=== PATIENT | female | born 1945 | race Caucasian/White ===

== ENCOUNTER 2019-02-12 04:00 | Inpatient (IN) | payer MEDICARE, OTHER ==
[2019-02-12] VITALS (9 sets, daily range): BP systolic 122–152; BP diastolic 59–75; PULSE 80–86; RESP 16–22; Ht 157.5 cm; Wt 91.6 kg
[~2019-02-12] VITALS: Ht 157.5 cm; Wt 91.6 kg
[~2019-02-12 04:00] MED LIST: AMPI3VIA IVPB; ARGI1POW MC; ASPI-903 PO; ATOR-2 ORAL; CADE40GE TP; CARV25TA79 ORAL; CLOP75TA28 ORAL; DULA1.5P SQ; INSU100I33 SC; NICO-546 TRANSDERM; NOVO3I SC; SACU1TAB7 ORAL; SPIR25TA PO; TRAM50TA2 ORAL
[2019-02-12] MEDS ORDERED: PROPOFOL 100 ML IV STA (04:06)
[2019-02-12] MEDS ORDERED: PROPOFOL 100 ML ONE ×2 (04:10→06:22)
[2019-02-12] MEDS ORDERED: ETOMIDATE 20 MG INJ ONE (04:20)
[2019-02-12] MEDS ORDERED: SUCCINYLCHOLINE CHLORIDE 100 MG/5 ML SYG IV ONE ×3 (04:20→07:00)
[2019-02-12] MEDS ORDERED: ETOMIDATE 20 MG INJ IV ONE (04:30)
[2019-02-12] MEDS ORDERED: FUROSEMIDE 40 MG INJ IV ONE (04:30)
--- NOTE | 2019-02-12 05:35 | ERD ---
ER Documentation Chief Complaint Chief Complaint SOB HPI This is a very pleasant 73-year-old female brought in by rescue with shortness of breath. According to respiratory short of breath and diaphoretic at the scene and they started her on CPAP. Upon arrival patient is essentially obtunded and is unable to provide any relevant history at this time. Obviously history is very limited. ROS All systems reviewed and are negative except as per history of present illness. Allergies Allergies: Coded Allergies: No Known Allergy (Unverified , 02/12/19) PMhx/Soc History of Surgery: Yes (LEFT LEG AMPUTATION 2013, STENTS 2017) Anesthesia Reaction: No Hx Neurological Disorder: No Hx Respiratory Disorders: Yes (CHF ) Hx Cardiac Disorders: Yes (HTN ) Hx Psychiatric Problems: No Hx Miscellaneous Medical Probl: Yes (STAPH INFECTION ) Hx Alcohol Use: No Hx Substance Use: No Hx Tobacco Use: No Smoking Status: Never smoker Physical Exam Vitals Vital Signs Date Temp Pulse Resp B/P (MAP) Pulse Ox O2 O2 Flow FiO2 Time Delivery Rate 02/12/19 40 05:30 02/12/19 98 16 113/61 100 Room Air 05:04 (78) 02/12/19 60 05:01 02/12/19 112 16 98 100 04:22 02/12/19 97.5 127 21 197/116 100 04:14 (143) Physical Exam Const: No acute distress Head: Atraumatic Eyes: Normal Conjunctiva ENT: Normal External Ears, Nose and Mouth. Neck: Full range of motion. No meningismus. Resp: Clear to auscultation bilaterally Cardio: Regular rate and rhythm, no murmurs Abd: Soft, non tender, non distended. Normal bowel sounds Skin: No petechiae or rashes Back: No midline or flank tenderness Ext: No cyanosis, or edema Neur: Awake and alert Psych: Normal Mood and Affect Result Diagram: 02/12/19 0417 02/12/19 0417 Results 24 hrs Laboratory Tests Test 02/12/19 04:06 02/12/19 04:17 Blood Gas Specimen Source Blood arterial Arterial Blood Date Drawn 02/12/2019 5:15:40 AM Arterial Blood pH (Temp corrected) 7.282 Arterial Blood pCO2 (Temp correct) 49.1 mmhg Arterial Blood pO2 (Temp corrected) 264.2 mmHG Arterial Blood HCO3 22.7 mmol/L Arterial Blood Base Excess -4.4 mmol/L Arterial Blood Oxygen Saturation 98.9 mmHG Dawson Test ACCEPTAB Arterial Blood Gas Puncture Site Left Radial Arterial Blood Carboxyhemoglobin 0.4 % Arterial Blood Methemoglobin 0.1 % Blood Gas A-a O2 Differential 399.7 mmHg Oxyhemoglobin Percent 98.4 % Blood Gas Temperature 37.0 C Blood Gas Respiration Rate 16.0 Blood Gas Actual Respiration Rate 16 Blood Gas Modality VENT - AC FiO2 100.0 % Blood Gas Tidal Volume 500.0 mL Blood Gas Inspiratory Pressure 31.0 Blood Gas Critical Value Read Back DR. COPPOLA Blood Gas Notified Whom Blood Gas Notified Time 02/12/2019 5:27:38 AM White Blood Count 9.2 10^3/ul Red Blood Count 5.28 10^6/ul Hemoglobin 15.5 g/dl Hematocrit 48.9 % Mean Corpuscular Volume 92.6 fl Mean Corpuscular Hemoglobin 29.4 pg Mean Corpuscular Hemoglobin Concent 31.7 g/dl Red Cell Distribution Width 13.2 % Platelet Count 415 10^3/UL Mean Platelet Volume 10.6 fl Immature Granulocytes % 0.500 % Neutrophils % 63.3 % Lymphocytes % 25.8 % Monocytes % 5.7 % Eosinophils % 3.6 % Basophils % 1.1 % Nucleated Red Blood Cells % 0.0 /100WBC Immature Granulocytes # 0.050 10^3/ul Neutrophils # 5.8 10^3/ul Lymphocytes # 2.4 10^3/ul Monocytes # 0.5 10^3/ul Eosinophils # 0.3 10^3/ul Basophils # 0.1 10^3/ul Nucleated Red Blood Cells # 0.0 10^3/ul Prothrombin Time 13.1 Sec Prothrombin Time Ratio 1.0 INR International Normalized Ratio 0.98 Activated Partial Thromboplast Time 23.7 Sec Sodium Level 143 mmol/L Potassium Level 5.2 mmol/L Chloride Level 108 mmol/L Carbon Dioxide Level 24 mmol/L Anion Gap 11 Blood Urea Nitrogen 21 mg/dl Creatinine 0.90 mg/dl Est Glomerular Filtrat Rate mL/min mL/min Glucose Level 380 mg/dl Calcium Level 8.7 mg/dl Total Bilirubin 0.2 mg/dl Direct Bilirubin 0.00 mg/dl Indirect Bilirubin 0.2 mg/dl Aspartate Amino Transf (AST/SGOT) 218 IU/L Alanine Aminotransferase (ALT/SGPT) 195 IU/L Alkaline Phosphatase 168 IU/L Troponin I < 0.012 ng/ml B-Type Natriuretic Peptide 1910 PG/ML Total Protein 6.9 g/dl Albumin 3.5 g/dl Globulin 3.40 g/dl Albumin/Globulin Ratio 1.02 Triglycerides Level 272 mg/dl Cholesterol Level 185 mg/dl LDL Cholesterol, Calculated 95 mg/dl HDL Cholesterol 36 mg/dl Cholesterol/HDL Ratio 5.1 RATIO Lipase 118 U/L Current Medications Medications Dose Sig/Madelyn Start Time Status Last (Trade) Ordered Route PRN Stop Time Admin Dose Reason Admin Etomidate 20 mg ONCE ONCE 02/12/19 DC 02/12/19 (Amidate) IV 04:30 02/12/19 04:37 04:31 100 mg ONCE ONCE 02/12/19 DC 02/12/19 Succinylcholi IV 04:30 02/12/19 04:37 ne Chloride 04:31 (Anectine Syringe) Propofol 100 ml @ 3 ONCE STAT 02/12/19 02/12/19 mls/hr IV 04:06 02/13/19 05:29 13:25 Furosemide 80 mg ONCE ONCE 02/12/19 DC (Lasix) IV 04:30 02/12/19 04:31 Procedures/MDM EKG: Rate/Rhythm: [Normal Sinus Rhythm] QRS, ST, T-waves: ST segment depressions in V5 and V6 Impression: Abnormal EKG Chest X-ray 1V Interpreted by me: Soft Tissue: No acute abnormalities Bones: No acute abnormalities Mediastinum/Cardiac Silhouette/Lungs: Increased interstitial fluid markings. Impression: CHF Emergency department course: Patient was immediately intubated given his severe respiratory distress and her mental status declining. At this point patient will be admitted to intensive care unit to Dr. kaminski as primary does not come to this hospital. Endotracheal Intubation by me: Pre assessment performed. See preceding note for details. Pre-oxygenation performed with 100% oxygen RSI: Performed w/o complication or hypoxic events. Medications as ordered. Blade: [Mac 4] ET Tube: 7.5 cm Depth: 23 cm at the lip Intubation confirmed by colorimetric CO2, equal breath sounds, quiet over the stomach. Chest X-ray 1V Interpreted by me: 2 cm above the anselmo ET tube. Normal soft tissue, No pneumothorax. Patient's heart failure symptoms is concerning for acute decompensation and will require inpatient workup and monitoring. Further w/u for ischemia, arrhythmia, PE or dissection will be deferred to the inpatient team. Accepting Care Team: Current data and ongoing care discussed. Time: 4:30 AM Primary Provider: Hospitalist Consulting: [ZAC] Outstanding Data: none Critical Care: Time: 45 minutes, independent of any separately billable procedural time Treatments/Evaluations: Close monitoring and treatment of unstable vital signs, cardiorespiratory, and neurologic status, while maintaining tight balance of fluid, respiratory, and cardiac interventions. Departure Diagnosis: Primary Impression: Shortness of breath Condition: Critical WYATT COPPOLA Feb 12, 2019 05:35
--- NOTE | 2019-02-12 07:18 | HP ---
Date/Time of Note Date/Time of Note DATE: 02/12/19 TIME: 07:11 Assessment/Plan VTE Prophylaxis SCD applied (from Nsg): Yes Pharmacological prophylaxis: NA/contraindicated Pharm contraindication: other (Allergy to heparin) Lines/Catheters IV Catheter Type (from Nrsg): Saline Lock Assessment/Plan Assessment/Plan 1. Hypoxic respiratory failure: Secondary to CHF exacerbation, status post intubation -Continue vent support -Repeat ABG -2D echo -Consider chest CT -will diurese -Pulmonary and cardiology consult 2. Acute on chronic CHF -will diurese -2D echo 3. Diabetes with hyperglycemia -Check A1c -Insulin while in-house 4. Hypertension: Adjust BP meds as needed 5. Left leg amputation at the hip: No acute issue. Supportive care Result Diagram: 02/12/19 0417 02/12/19 0417 Results 24hrs Laboratory Tests Test 02/12/19 04:06 02/12/19 04:17 Blood Gas Specimen Source Blood arterial Arterial Blood Date Drawn 02/12/2019 5:15:40 AM Arterial Blood pH (Temp corrected) 7.282 *L Arterial Blood pCO2 (Temp correct) 49.1 H Arterial Blood pO2 (Temp corrected) 264.2 H Arterial Blood HCO3 22.7 Arterial Blood Base Excess -4.4 L Arterial Blood Oxygen Saturation 98.9 Dawson Test ACCEPTAB Arterial Blood Gas Puncture Site Left Radial Arterial Blood Carboxyhemoglobin 0.4 Arterial Blood Methemoglobin 0.1 Blood Gas A-a O2 Differential 399.7 H Oxyhemoglobin Percent 98.4 Blood Gas Temperature 37.0 Blood Gas Respiration Rate 16.0 Blood Gas Actual Respiration Rate 16 Blood Gas Modality VENT - AC FiO2 100.0 Blood Gas Tidal Volume 500.0 Blood Gas Inspiratory Pressure 31.0 Blood Gas Critical Value Read Back DR. COPPOLA Blood Gas Notified Whom MR Blood Gas Notified Time 02/12/2019 5:27:38 AM White Blood Count 9.2 Red Blood Count 5.28 Hemoglobin 15.5 Hematocrit 48.9 H Mean Corpuscular Volume 92.6 Mean Corpuscular Hemoglobin 29.4 Mean Corpuscular Hemoglobin Concent 31.7 L Red Cell Distribution Width 13.2 Platelet Count 415 Mean Platelet Volume 10.6 H Immature Granulocytes % 0.500 H Neutrophils % 63.3 Lymphocytes % 25.8 Monocytes % 5.7 Eosinophils % 3.6 Basophils % 1.1 Nucleated Red Blood Cells % 0.0 Immature Granulocytes # 0.050 H Neutrophils # 5.8 Lymphocytes # 2.4 Monocytes # 0.5 Eosinophils # 0.3 Basophils # 0.1 Nucleated Red Blood Cells # 0.0 Prothrombin Time 13.1 Prothrombin Time Ratio 1.0 INR International Normalized Ratio 0.98 Activated Partial Thromboplast Time 23.7 Sodium Level 143 Potassium Level 5.2 H Chloride Level 108 Carbon Dioxide Level 24 Anion Gap 11 Blood Urea Nitrogen 21 H Creatinine 0.90 Est Glomerular Filtrat Rate mL/min Glucose Level 380 H Calcium Level 8.7 Total Bilirubin 0.2 Direct Bilirubin 0.00 Indirect Bilirubin 0.2 Aspartate Amino Transf (AST/SGOT) 218 H Alanine Aminotransferase (ALT/SGPT) 195 H Alkaline Phosphatase 168 H Troponin I < 0.012 B-Type Natriuretic Peptide 1910 H Total Protein 6.9 Albumin 3.5 Globulin 3.40 H Albumin/Globulin Ratio 1.02 Triglycerides Level 272 H Cholesterol Level 185 LDL Cholesterol, Calculated 95 HDL Cholesterol 36 Cholesterol/HDL Ratio 5.1 Lipase 118 HPI/ROS Admit Date/Time Admit Date/Time Hx of Present Illness Patient is a 73-year-old obese female with a history of hypertension, CHF, left leg amputation at the hip who was brought to the ER for a shortness of breath. Patient is currently intubated and as such information is gathered from chart review and from the ER physician. When presented to ER, ABG 100% FiO2 shows a pH of 7.28, PCO2 49, PO2 264, bicarb 23. Because of the level of respiratory distress, decision was made to intubate the patient. Chest x-ray results is not uploaded, however I was at the bedside when x-ray was done and according to my read, it appears pulmonary edema PMH/Family/Social Past Medical History Medical History: other (See HPI) Medications Current Medications Propofol 100 ml @ 3 mls/hr ONCE STAT IV Last administered on 02/12/19at 05:29; Admin Dose 3 MLS/HR; Start 02/12/19 at 04:06; Stop 02/13/19 at 13:25 Coded Allergies: heparin (Verified Allergy, Unknown, 02/12/19) Uncoded Allergies: IODINE (Allergy, Unknown, 02/12/19) Past Surgical History Past Surgical Hx: other (See HPI) Family History Significant Family History: no pertinent family hx Social History Alcohol Use: none Smoking Status: Never smoker Drug Use: none Exam/Review of Systems Vital Signs Vitals Vital Signs Date Temp Pulse Resp B/P (MAP) Pulse Ox O2 O2 Flow FiO2 Time Delivery Rate 02/12/19 90 16 129/66 98 Mechanical 06:30 (87) Ventilator 02/12/19 40 05:30 02/12/19 60 05:01 02/12/19 97.5 04:14 Exam Constitutional: other (Intubated) Head: normocephalic, atraumatic Eyes: PERRL Respiratory: diminished breath sounds Cardiovascular: regular rate and rhythm Gastrointestinal: soft, other (Obese abdomen) Extremities: other (Right lower extremity with tense edema. 2 bullae noted. Left leg amputated at the hip) WYATT DAVIS MD Feb 12, 2019 07:18
[2019-02-12] MEDS ORDERED: LORAZEPAM 2 MG INJ IV PRN (07:30)
[2019-02-12] MEDS ORDERED: ALBUTEROL HFA 8 GM INHALER INH PRN (07:30)
[2019-02-12] MEDS ORDERED: IPRATROPIUM (HFA) 12.9 GM INHALER INH PRN (07:30)
[2019-02-12] MEDS ORDERED: ONDANSETRON 4 MG INJ IV PRN (07:30)
[2019-02-12] MEDS ORDERED: ARGININE HCL MC SCH (09:00)
[2019-02-12] MEDS ORDERED: GLUCOSE GEL 15 GRAM TUBE BUCCAL PRN (09:30)
[2019-02-12] MEDS ORDERED: GLUCAGON 1 MG INJ IM PRN (09:30)
[2019-02-12] MEDS ORDERED: GLUCOSE GEL 15 GRAM TUBE PO PRN ×2 (09:30)
[2019-02-12] MEDS ORDERED: DEXTROSE 50% 50 ML SYRINGE IV PRN (09:30)
--- NOTE | 2019-02-12 10:06 | QN ---
Documentation Comment Observation Note: Time: 4 hours Family Hx: Unable to obtain Evaluation: Multiple exams showed improving symptoms and no evidence of clinical decompensation. FAMILIA IRVIN MD Feb 12, 2019 10:06
[2019-02-12] MEDS: INSULIN ASPART [NOVOLOG] 3 ML PEN SC SCH ×2 (10:23→14:24)
[2019-02-12] MEDS: FAMOTIDINE 20 MG INJ IV SCH (11:01)
[2019-02-12] MEDS: ASPIRIN 81 MG TAB PO SCH (11:01)
[2019-02-12] MEDS: CLOPIDOGREL 75 MG TAB NGT SCH (11:01)
[2019-02-12] MEDS ORDERED: AMPICILLIN/SULBAC 3 GM INJ IVPB SCH (12:00)
[2019-02-12] MEDS ORDERED: AMPICILLIN/SULB 3 GM/NS (PMX) 100 ML IVPB SCH (14:00)
[2019-02-12] MEDS ORDERED: APIXABAN 5 MG TABLET PO SCH (14:30)
[2019-02-12] MEDS ORDERED: predniSONE 50 MG TAB PO ONE ×2 (14:30→20:00)
--- NOTE | 2019-02-12 14:50 | PN ---
Date/Time of Note Date/Time of Note DATE: 02/12/19 TIME: 14:36 Assessment/Plan VTE Prophylaxis SCD applied (from Nsg): Yes Pharmacological prophylaxis: apixaban Lines/Catheters IV Catheter Type (from Nrsg): Saline Lock Assessment/Plan Assessment/Plan 73 yo morbidly obese woman history of peripheral vascular disease, diabetes type II, CHF, likely COPD presents with acute respiratory failure #Acute respiratory failure - Respiratory failure appears out of proportion to mild pulmonary edema on CXR. - In setting of acute onset (within hours), lack of recent fever or productive cough to suggest pneumonia, I suspect PE until this is ruled out. - Imaging: Patient has CONTRAST ALLERGY. Will plan for CTPA with benadryl/prednisone pretreatment. I believe the lung structural information we will see on the CT is also more helpful than a VQ scan would be. - Treatment: According to granddaughter the patient had ACUTE DVT while on heparin treatment and was told she had a "heparin allergy". 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 Will avoid UFH and LMWH. Will start treatment-dose apixaban 10mg BID x7 days. - COPD exacerbation also possible. Getting prednisone as above. Will consult pulmonary as well. #Diabetes type II, insulin dependent - aspart sliding scale, glargine 20 qhs. #Peripheral vascular disease - Cont aspirin, plavix, statin - Monitor carefully for bleeding while on anticoag and dual antiplatelet. #CHF - Hold negative inotropes while critically ill #History of DVT - Will check LE duplex. GI: famotidine DVT: apixaban Result Diagram: 02/12/19 0417 02/12/19 0417 Subjective 24 Hr Interval Summary Free Text/Dictation I spoke at length to the patient's granddaughter Ann, who is a respiratory therapist who previously trained at this hospital. Apparently yesterday evening the patient suddenly developed shortness of breath and wheezing at rest. She was not doing any activities. She took her inhaled albuterol with minimal relief. Around 3:30 in the morning her shortness of breath had not improved and she was starting to tire out so her daughter brought her to the ED. She has severe peripheral artery disease, diabetes, CHF. Unknown if she has COPD. Hospitalized at [place] 2 weeks ago for R leg cellulitis and ulcer; started on IV Unasyn. PAST SURGICAL HISTORY Critical limb ischemia of the L femoral artery, status post Left leg amputation at the hip ([facility], 2014) Right leg bypass surgery 3 stents placed in her heart. SOCIAL Smokes 1 pack per day No alcohol, no drugs. Lives with daughter and granddaughter. Exam/Review of Systems Exam Vitals Vital Signs Date Temp Pulse Resp B/P (MAP) Pulse Ox O2 O2 Flow FiO2 Time Delivery Rate 02/12/19 83 16 14/64 (48) 97 Mechanical 14:26 Ventilator 02/12/19 40 05:30 02/12/19 60 05:01 02/12/19 97.5 04:14 Exam Gen: Morbidly obese woman intubated and sedated in [facility]. HEENT: Moist mucous membranes. ET tube in place. Neck: Supple, no lymphadenopathy. Card: Regular rate and rhythm, no murmurs. Pulm: Mechanical breath sounds bilaterally. Minimal crackles. Abd: Soft, nontender, nondistended. Hypoactive bowel sounds. 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 R leg with well healed bypass scar below the knee. Skin: L lower leg erythema and induration, superficial tense blisters. Left foot bandaged. Results Results 24hrs Laboratory Tests Test 02/12/19 04:06 02/12/19 04:17 02/12/19 09:52 02/12/19 10:48 Blood Gas Specimen Blood arterial Source Arterial Blood 02/12/2019 5:15:40 Date Drawn AM Arterial Blood pH 7.282 *L (Temp corrected) Arterial Blood 49.1 H pCO2 (Temp correct) Arterial Blood pO2 264.2 H (Temp corrected) Arterial Blood 22.7 HCO3 Arterial Blood -4.4 L Base Excess Arterial Blood 98.9 Oxygen Saturation Dawson Test ACCEPTAB Arterial Blood Gas Left Radial Puncture Site Arterial 0.4 Blood Carboxyhemog lobin Arterial Blood 0.1 Methemoglobin Blood Gas A-a O2 399.7 H Differential Oxyhemoglobin 98.4 Percent Blood Gas 37.0 Temperature Blood Gas 16.0 Respiration Rate Blood Gas Actual 16 Respiration Rate Blood Gas Modality VENT - AC FiO2 100.0 Blood Gas Tidal 500.0 Volume Blood Gas 31.0 Inspiratory Pressure Blood Gas Critical DR. COPPOLA Value Read Back Blood Gas Notified MR Whom Blood Gas Notified 02/12/2019 5:27:38 Time AM White Blood Count 9.2 Red Blood Count 5.28 Hemoglobin 15.5 Hematocrit 48.9 H Mean Corpuscular 92.6 Volume Mean Corpuscular 29.4 Hemoglobin Mean Corpuscular 31.7 L Hemoglobin Concent Red Cell 13.2 Distribution Width Platelet Count 415 Mean Platelet 10.6 H Volume Immature 0.500 H Granulocytes % Neutrophils % 63.3 Lymphocytes % 25.8 Monocytes % 5.7 Eosinophils % 3.6 Basophils % 1.1 Nucleated Red 0.0 Blood Cells % Immature 0.050 H Granulocytes # Neutrophils # 5.8 Lymphocytes # 2.4 Monocytes # 0.5 Eosinophils # 0.3 Basophils # 0.1 Nucleated Red 0.0 Blood Cells # Prothrombin Time 13.1 Prothrombin Time 1.0 Ratio INR International 0.98 Normalized Ratio Activated 23.[address] Time Sodium Level 143 Potassium Level 5.2 H Chloride Level 108 Carbon Dioxide 24 Level Anion Gap 11 Blood Urea 21 H Nitrogen Creatinine 0.90 Est Glomerular Filtrat Rate mL/min Glucose Level 380 H Calcium Level 8.7 Total Bilirubin 0.2 Direct Bilirubin 0.00 Indirect Bilirubin 0.2 Aspartate Amino 218 H Transf (AST/SGOT) Alanine 195 H Aminotransferase ( ALT/SGPT) Alkaline 168 H Phosphatase Troponin I < 0.012 0.069 B-Type Natriuretic 1910 H Peptide Total Protein 6.9 Albumin 3.5 Globulin 3.40 H Albumin/Globulin 1.02 Ratio Triglycerides 272 H Level Cholesterol Level 185 LDL Cholesterol, 95 Calculated HDL Cholesterol 36 Cholesterol/HDL 5.1 Ratio Lipase 118 Bedside Glucose 263 H Creatine Kinase 115 Creatine Kinase 2.1 Index Creatinine Kinase 2.43 H MB (Mass) Test 02/12/19 13:01 02/12/19 14:19 Blood Gas Specimen Blood arterial Source Arterial Blood 02/12/2019 2:08:47 Date Drawn PM Arterial Blood pH 7.447 (Temp corrected) Arterial Blood 38.0 pCO2 (Temp correct) Arterial Blood pO2 76.3 L (Temp corrected) Arterial Blood 25.6 HCO3 Arterial Blood 1.7 Base Excess Arterial Blood 95.2 Oxygen Saturation Dawson Test ACCEPTAB Arterial Blood Gas Right Radial Puncture Site Arterial 0.7 Blood Carboxyhemog lobin Arterial Blood 0.1 Methemoglobin Blood Gas A-a O2 93.0 H Differential Oxyhemoglobin 94.4 Percent Blood Gas 37.0 Temperature Blood Gas 16.0 Respiration Rate Blood Gas Actual 20 Respiration Rate Blood Gas Modality VENT - AC FiO2 30.0 Blood Gas Tidal 500.0 Volume Blood Gas Low PEEP 5.0 Setting Blood Gas Notified RT Whom Blood Gas Notified 02/12/2019 2:16:33 Time PM Bedside Glucose 229 H Medications Medication Current Medications Propofol 100 ml @ 3 mls/hr ONCE STAT IV Last administered on 02/12/19at 05:29; Admin Dose 3 MLS/HR; Start 02/12/19 at 04:06; Stop 02/13/19 at 13:25 Ondansetron HCl (Zofran Inj) 4 mg Q6H PRN IV NAUSEA AND/OR VOMITING; Start 02/12/19 at 07:30 Albuterol (Ventolin Hfa) 2 puff Q2H RESP THERAPY PRN INH SHORTNESS OF BREATH; Start 02/12/19 at 07:30 Ipratropium [place] (Atrovent Hfa) 2 puff Q2H RESP THERAPY PRN INH SHORTNESS OF BREATH; Start 02/12/19 at 07:30 Acetaminophen (Tylenol Liquid) 650 mg Q6H PRN PO PAIN LEVEL 1-3 OR FEVER; Start 02/12/19 at 07:30 Acetaminophen (Tylenol Supp) 650 mg Q4H PRN NV PAIN LEVEL 1-3 OR FEVER; Start 02/12/19 at 07:30 Lorazepam (Ativan) 1 mg Q2H PRN IV ANXIETY; Start 02/12/19 at 07:30 Propofol 100 ml @ 2.4 mls/hr PER PROTOCOL IV ; Start 02/12/19 at 07:30 Famotidine (Pepcid Iv) 20 mg Q24H IV Last administered on 02/12/19 11:01; Admin Dose 20 MG; Start 02/12/19 at 07:30 Aspirin (Aspirin) 81 mg DAILY PO Last administered on 02/12/19 11:01; Admin Dose 81 MG; Start 02/12/19 at 09:00 Clopidogrel Bisulfate (plaVIX) 75 mg DAILY NGT Last administered on 02/12/19 11:01; Admin Dose 75 MG; Start 02/12/19 at 09:00 Miscellaneous Information 1 gm DAILY MC ; Start 02/12/19 at 09:00; Status UNV Atorvastatin Calcium (Lipitor) 80 mg QHS NGT ; Start 02/12/19 at 21:00 Diagnostic Test (Pha) (Accu-Chek) 1 ea 02 XX ; Start 02/13/19 at 02:00 Insulin Aspart (Novolog Insulin Pen) NOVOLOG *MODERATE* ALGORI... Q4 SC Last administered on 02/12/19at 14:24; Admin Dose 6 UNIT; Start 02/12/19 at 10:00 Miscellaneous Information 1 ea NOTE XX ; Start 02/12/19 at 09:30 Glucose (Glutose) 15 gm Q15M PRN PO DECREASED GLUCOSE; Start 02/12/19 at 09:30 Glucose (Glutose) 22.5 gm Q15M PRN PO DECREASED GLUCOSE; Start 02/12/19 at 09:30 Dextrose (D50w Syringe) 25 ml Q15M PRN IV DECREASED GLUCOSE; Start 02/12/19 at 09:30 Dextrose (D50w Syringe) 50 ml Q15M PRN IV DECREASED GLUCOSE; Start 02/12/19 at 09:30 Glucagon (Glucagen) 1 mg Q15M PRN IM DECREASED GLUCOSE; Start 02/12/19 at 09:30 Glucose (Glutose) 15 gm Q15M PRN BUCCAL DECREASED GLUCOSE; Start 02/12/19 at 09:30 Ampicillin Sodium/ Sulbactam Sodium 100 ml @ 100 mls/hr Q6 IVPB Last administered on 02/12/19at 13:13; Admin Dose 100 MLS/HR; Start 02/12/19 at 14:00 Apixaban (Eliquis) 10 mg BID PO ; Start 02/12/19 at 14:30; Stop 02/18/19 at 22:00; Status UNV Prednisone (Prednisone) 50 mg ONCE ONCE PO ; Start 02/12/19 at 14:30; Stop 02/12/19 at 14:31; Status UNV Prednisone (Prednisone) 50 mg ONCE ONCE PO ; Start 02/12/19 at 20:00; Stop 02/12/19 at 20:01; Status UNV Prednisone (Prednisone) 50 mg ONCE ONCE PO ; Start 02/13/19 at 02:30; Stop 02/13/19 at 02:31; Status UNV Diphenhydramine HCl (Benadryl) 50 mg ONCE ONCE IV ; Start 02/13/19 at 02:30; Stop 02/13/19 at 02:31; Status UNV ANTON OZUNA MD Feb 12, 2019 14:48
[2019-02-12] MEDS ORDERED: predniSONE 50 MG TAB NGT ONE (16:30)
[2019-02-12] MEDS ORDERED: APIXABAN 5 MG TABLET NGT SCH ×2 (18:00→21:00)
[2019-02-12] MEDS ORDERED: INSULIN GLARGINE [LANTus] (100 UNITS/ML) SYG SC SCH (20:00)
[2019-02-12] MEDS: AMPICILLIN/SULB 3 GM/NS (PMX) 100 ML IVPB SCH (20:19)
[2019-02-12] MEDS: ATORVASTATIN 80 MG TAB NGT SCH (20:52)
[2019-02-12] MEDS ORDERED: FAMOTIDINE 20 MG INJ IV SCH (21:00)
[2019-02-12] MEDS: PROPOFOL 100 ML IV SCH (22:20)
[2019-02-13] VITALS (44 sets, daily range): BP systolic 106–164; BP diastolic 48–143; PULSE 69–86; RESP 14–19
[2019-02-13] MEDS: INSULIN ASPART [NOVOLOG] 3 ML PEN SC SCH ×6 (01:25→21:53)
[2019-02-13] MEDS: ACCU-CHEK XX SCH (02:00)
[2019-02-13] MEDS: AMPICILLIN/SULB 3 GM/NS (PMX) 100 ML IVPB SCH (02:15)
[2019-02-13] MEDS ORDERED: DIPHENHYDRAMINE 50 MG INJ IV ONE (02:30)
[2019-02-13] MEDS: PROPOFOL 100 ML IV SCH ×6 (02:39→23:10)
[2019-02-13] MEDS ORDERED: PANTOPRAZOLE 40 MG INJ IV SCH (06:00)
--- NOTE | 2019-02-13 08:12 | CONS ---
Assessment/Plan Assessment/Plan Assessment/Plan (Daily) 73-year-old female omitted for acute respiratory failure Work-up in process for acute pulmonary emboli in the setting of past history of HIT Congestive heart failure History of COPD Patient intubated Full code Type 2 diabetes History of peripheral vascular disease I understand there are 2 daughters involved in decision-making one daughter may arrive today I will speak to her otherwise we will schedule family conference as soon as possible. Consultation Date/Type/Reason Admit Date/Time Date/Time of Note DATE: 02/13/19 TIME: 08:07 Hx of Present Illness Unable to obtain a review of systems 73-year-old female who developed sudden onset of acute respiratory distress at her home with family members present. She was initially treated with HHN but did not improve and at approximately 3 AM in the morning was transferred to [facility] required intubation. 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 CT angiogram pending. We do not know patient's baseline mental status per the night she is able to do any ADLs independently and family members not available at the [facility] at this time. Patient is full code Past Medical History Medical History: congestive heart failure, coronary artery disease, other (See HPI) Home Meds Reported Medications Insulin Glargine,Hum.rec.anlog (Basaglar Kwikpen U-100) 100 Unit/1 Ml Insuln.pen, 0-12 UNIT SC QHS for PER SLIDING SCALE, EA 02/12/19 Insulin Aspart* (Novolog Insulin Pen*) 100 Unit/Ml Soln, 0-12 SC .SLIDING SCALE AC, EA 02/12/19 Dulaglutide (Trulicity) 1.5 Mg/0.5 Ml Pen.injctr, 1.5 MG SQ WEEKLY 02/12/19 Aspirin* (Aspirin* Chew) 81 Mg Tab.chew, 81 MG PO DAILY, TAB.CHEW 02/12/19 Clopidogrel Bisulfate (Clopidogrel) 75 Mg Tablet, 1 TAB ORAL DAILY 02/12/19 Tramadol HCl (Tramadol HCl) 50 Mg Tablet, 1 TAB ORAL Q6 PRN for PAIN LEVEL 4-6 02/12/19 Arginine Hcl (Arginine Hcl) 1 Gm Powder, 1 GM MC DAILY 02/12/19 Sacubitril/Valsartan (Entresto 49 mg-51 mg Tablet) 1 Each Tablet, 1 TAB ORAL DAILY 02/12/19 Atorvastatin* (Atorvastatin*) 80 Mg Tablet, 1 TAB ORAL QHS 02/12/19 Carvedilol* (Carvedilol*) 25 Mg Tablet, 1 TAB ORAL BID 02/12/19 Spironolactone* (Aldactone*) 25 Mg Tablet, 12.5 MG PO QAM, #60 TAB 02/12/19 Ampicillin Sodium-Sulbactam Sodium (Unasyn*) 3 Gm Soln, 3 GM IVPB Q6, VIAL 02/12/19 Medications Current Medications Propofol 100 ml @ 3 mls/hr ONCE STAT IV Last administered on 02/12/19at 05:29; Admin Dose 3 MLS/HR; Start 02/12/19 at 04:06; Stop 02/13/19 at 13:25 Ondansetron HCl (Zofran Inj) 4 mg Q6H PRN IV NAUSEA AND/OR VOMITING; Start 02/12/19 at 07:30 Albuterol (Ventolin Hfa) 2 puff Q2H RESP THERAPY PRN INH SHORTNESS OF BREATH; Start 02/12/19 at 07:30 Ipratropium [place]isco (Atrovent Hfa) 2 puff Q2H RESP THERAPY PRN INH SHORTNESS OF BREATH; Start 02/12/19 at 07:30 Acetaminophen (Tylenol Liquid) 650 mg Q6H PRN PO PAIN LEVEL 1-3 OR FEVER; Start 02/12/19 at 07:30 Acetaminophen (Tylenol Supp) 650 mg Q4H PRN [place] PAIN LEVEL 1-3 OR FEVER; Start 02/12/19 at 07:30 Lorazepam (Ativan) 1 mg Q2H PRN IV ANXIETY; Start 02/12/19 at 07:30 Propofol 100 ml @ 2.748 mls/ hr PER PROTOCOL IV Last administered on 02/13/19at 07:26; Admin Dose 21.984 MLS/HR; Start 02/12/19 at 07:30 Famotidine (Pepcid Iv) 20 mg Q24H IV Last administered on 02/12/19at 11:01; Admin Dose 20 MG; Start 02/12/19 at 07:30 Aspirin (Aspirin) 81 mg DAILY PO Last administered on 02/12/19at 11:01; Admin Dose 81 MG; Start 02/12/19 at 09:00 Clopidogrel Bisulfate (plaVIX) 75 mg DAILY NGT Last administered on 02/12/19at 11:01; Admin Dose 75 MG; Start 02/12/19 at 09:00 Miscellaneous Information 1 gm DAILY MC ; Start 02/12/19 at 09:00; Status UNV Atorvastatin Calcium (Lipitor) 80 mg QHS NGT Last administered on 02/12/19at 20:52; Admin Dose 80 MG; Start 02/12/19 at 21:00 Diagnostic Test (Pha) (Accu-Chek) 1 ea 02 XX ; Start 02/13/19 at 02:00 Miscellaneous Information 1 ea NOTE XX ; Start 02/12/19 at 09:30 Glucose (Glutose) 15 gm Q15M PRN PO DECREASED GLUCOSE; Start 02/12/19 at 09:30 Glucose (Glutose) 22.5 gm Q15M PRN PO DECREASED GLUCOSE; Start 02/12/19 at 09:30 Dextrose (D50w Syringe) 25 ml Q15M PRN IV DECREASED GLUCOSE; Start 02/12/19 at 09:30 Dextrose (D50w Syringe) 50 ml Q15M PRN IV DECREASED GLUCOSE; Start 02/12/19 at 09:30 Glucagon (Glucagen) 1 mg Q15M PRN IM DECREASED GLUCOSE; Start 02/12/19 at 09:30 Glucose (Glutose) 15 gm Q15M PRN BUCCAL DECREASED GLUCOSE; Start 02/12/19 at 09:30 Prednisone (Prednisone) 50 mg ONCE ONCE PO ; Start 02/13/19 at 09:00; Stop 02/13/19 at 09:01 Insulin Glargine (Lantus) 20 units DAILY@2000 SC Last administered on 02/12/19at 20:55; Admin Dose 20 UNITS; Start 02/12/19 at 20:00 Famotidine (Pepcid Iv) 20 mg BID IV Last administered on 02/12/19at 20:52; Admin Dose 20 MG; Start 02/12/19 at 21:00 Apixaban (Eliquis) 10 mg BID NGT Last administered on 02/12/19at 17:57; Admin Dose 10 MG; Start 02/12/19 at 18:00 Ampicillin Sodium/ Sulbactam Sodium 100 ml @ 100 mls/hr Q6H IVPB Last administered on 02/13/19at 02:15; Admin Dose 100 MLS/HR; Start 02/12/19 at 20:00 Insulin Aspart (Novolog Insulin Pen) NOVOLOG *MODERATE* ALGORI... Q4 SC Last administered on 02/13/19at 05:47; Admin Dose 6 UNIT; Start 02/12/19 at 23:07 Allergies: Coded Allergies: heparin (Verified Allergy, Unknown, 02/12/19) Uncoded Allergies: IODINE (Allergy, Unknown, 02/12/19) Past Surgical History Past Surgical Hx: other (Unknown) Family History Significant Family History: vascular disease, other (Otherwise unknown) Social History Alcohol Use: none Smoking Status: Current every day smoker Drug Use: none Exam/Review of Systems Exam Vitals Vital Signs Date Temp Pulse Resp B/P (MAP) Pulse Ox O2 O2 Flow FiO2 Time Delivery Rate 02/13/19 83 15 136/86 97 Mechanical 06:00 (103) Ventilator 02/13/19 30 05:00 02/13/19 98.8 04:00 02/12/19 60 05:01 Intake and Output 02/12/19 02/12/19 02/13/19 1515:00 23:00 07:00 IntakeIntake Total 284.984 ml 275.452 ml OutputOutput Total 200 ml 300 ml BalanceBalance 84.984 ml -24.548 ml Constitutional: other (Intubated sedated) Head: normocephalic, atraumatic; No lacerations, No hematomas, No other Eyes: nl conjunctiva, EOMI, nl lids, nl sclera, PERRL; No icteric, No fundi, disc, No other Neck: supple, non-tender; No jvd, No bruits, No masses, No thyromegaly, No nuchal rigidity, No other Respiratory: clear to auscultation, normal air movement; No congested cough, No crackles/rales, No diminished breath sounds, No intercostal retraction, No labored breathing, No respirations, No tactile fremitus, No wheezing, No other Cardiovascular: regular rate and rhythm, nl pulses; No bruits, No diastolic murmur, No edema, No gallop, No irregular rhythm, No jugular venous distention (JVD), No murmurs/extra sounds, No rub, No systolic murmur, No S3, No S4, No other Gastrointestinal: soft, nl liver, spleen, non-tender, other (Grossly intact); No ascites, No bowel sounds, No distended, No firm, No hepatomegaly, No mass, No rebound or guarding, No splenomegaly, No surgical scars, No tender Neurological: other (Sedated unresponsive) Results Result Diagram: 02/12/19 0417 02/12/19 0417 Results 24hrs Laboratory Tests Test 02/12/19 09:52 02/12/19 10:48 02/12/19 13:01 02/12/19 14:19 Bedside Glucose 263 H 229 H Creatine Kinase 115 Creatine Kinase 2.1 Index Creatinine Kinase 2.43 H MB (Mass) Troponin I 0.069 Blood Gas Specimen Blood arterial Source Arterial Blood 02/12/2019 2:08:47 Date Drawn PM Arterial Blood pH 7.447 (Temp corrected) Arterial Blood 38.0 pCO2 (Temp correct) Arterial Blood pO2 76.3 L (Temp corrected) Arterial Blood 25.6 HCO3 Arterial Blood 1.7 Base Excess Arterial Blood 95.2 Oxygen Saturation Dawson Test ACCEPTAB Arterial Blood Gas Right Radial Puncture Site Arterial 0.7 Blood Carboxyhemog lobin Arterial Blood 0.1 Methemoglobin Blood Gas A-a O2 93.0 H Differential Oxyhemoglobin 94.4 Percent Blood Gas 37.0 Temperature Blood Gas 16.0 Respiration Rate Blood Gas Actual 20 Respiration Rate Blood Gas Modality VENT - AC FiO2 30.0 Blood Gas Tidal 500.0 Volume Blood Gas Low PEEP 5.0 Setting Blood Gas Notified RT Whom Blood Gas Notified 02/12/2019 2:16:33 Time PM Test 02/12/19 19:13 02/12/19 20:49 02/13/19 01:21 02/13/19 05:42 Creatine Kinase 153 Creatine Kinase 1.3 Index Creatinine Kinase 1.93 MB (Mass) Troponin I 0.072 Bedside Glucose 191 254 H 254 H Medications Medication Current Medications Propofol 100 ml @ 3 mls/hr ONCE STAT IV Last administered on 02/12/19at 05:29; Admin Dose 3 MLS/HR; Start 02/12/19 at 04:06; Stop 02/13/19 at 13:25 Ondansetron HCl (Zofran Inj) 4 mg Q6H PRN IV NAUSEA AND/OR VOMITING; Start 02/12/19 at 07:30 Albuterol (Ventolin Hfa) 2 puff Q2H RESP THERAPY PRN INH SHORTNESS OF BREATH; Start 02/12/19 at 07:30 Ipratropium [place] (Atrovent Hfa) 2 puff Q2H RESP THERAPY PRN INH SHORTNESS OF BREATH; Start 02/12/19 at 07:30 Acetaminophen (Tylenol Liquid) 650 mg Q6H PRN PO PAIN LEVEL 1-3 OR FEVER; Start 02/12/19 at 07:30 Acetaminophen (Tylenol Supp) 650 mg Q4H PRN [place] PAIN LEVEL 1-3 OR FEVER; Start 02/12/19 at 07:30 Lorazepam (Ativan) 1 mg Q2H PRN IV ANXIETY; Start 02/12/19 at 07:30 Propofol 100 ml @ 2.748 mls/ hr PER PROTOCOL IV Last administered on 02/13/19at 07:26; Admin Dose 21.984 MLS/HR; Start 02/12/19 at 07:30 Famotidine (Pepcid Iv) 20 mg Q24H IV Last administered on 02/12/19at 11:01; Admin Dose 20 MG; Start 02/12/19 at 07:30 Aspirin (Aspirin) 81 mg DAILY PO Last administered on 02/12/19at 11:01; Admin Dose 81 MG; Start 02/12/19 at 09:00 Clopidogrel Bisulfate (plaVIX) 75 mg DAILY NGT Last administered on 02/12/19at 11:01; Admin Dose 75 MG; Start 02/12/19 at 09:00 Miscellaneous Information 1 gm DAILY MC ; Start 02/12/19 at 09:00; Status UNV Atorvastatin Calcium (Lipitor) 80 mg QHS NGT Last administered on 02/12/19at 20:52; Admin Dose 80 MG; Start 02/12/19 at 21:00 Diagnostic Test (Pha) (Accu-Chek) 1 ea 02 XX ; Start 02/13/19 at 02:00 Miscellaneous Information 1 ea NOTE XX ; Start 02/12/19 at 09:30 Glucose (Glutose) 15 gm Q15M PRN PO DECREASED GLUCOSE; Start 02/12/19 at 09:30 Glucose (Glutose) 22.5 gm Q15M PRN PO DECREASED GLUCOSE; Start 02/12/19 at 09:30 Dextrose (D50w Syringe) 25 ml Q15M PRN IV DECREASED GLUCOSE; Start 02/12/19 at 09:30 Dextrose (D50w Syringe) 50 ml Q15M PRN IV DECREASED GLUCOSE; Start 02/12/19 at 09:30 Glucagon (Glucagen) 1 mg Q15M PRN IM DECREASED GLUCOSE; Start 02/12/19 at 09:30 Glucose (Glutose) 15 gm Q15M PRN BUCCAL DECREASED GLUCOSE; Start 02/12/19 at 09:30 Prednisone (Prednisone) 50 mg ONCE ONCE PO ; Start 02/13/19 at 09:00; Stop 02/13/19 at 09:01 Insulin Glargine (Lantus) 20 units DAILY@2000 SC Last administered on 02/12/19at 20:55; Admin Dose 20 UNITS; Start 02/12/19 at 20:00 Famotidine (Pepcid Iv) 20 mg BID IV Last administered on 02/12/19at 20:52; Admin Dose 20 MG; Start 02/12/19 at 21:00 Apixaban (Eliquis) 10 mg BID NGT Last administered on 02/12/19at 17:57; Admin Dose 10 MG; Start 02/12/19 at 18:00 Ampicillin Sodium/ Sulbactam Sodium 100 ml @ 100 mls/hr Q6H IVPB Last administered on 02/13/19 02:15; Admin Dose 100 MLS/HR; Start 02/12/19 at 20:00 Insulin Aspart (Novolog Insulin Pen) NOVOLOG *MODERATE* ALGORI... Q4 SC Last administered on 02/13/19 05:47; Admin Dose 6 UNIT; Start 02/12/19 at 23:07 IRAM LEE Feb 13, 2019 08:12
[2019-02-13] MEDS ORDERED: IODIXANOL LOCM 100 ML BTL ONE (08:44)
[2019-02-13] MEDS ORDERED: SOD CHLORIDE 0.9% 100 ML ONE (08:44)
[2019-02-13] MEDS ORDERED: predniSONE 50 MG TAB PO ONE (09:00)
--- NOTE | 2019-02-13 09:06 | CONS ---
Assessment/Plan Assessment/Plan Assessment/Plan (Daily) Chest x-ray was reviewed which is showing pulmonary edema, difficult to rule out superimposed pneumonia. Ventilator setting; AC of 16, tidal volume 500, PEEP of 5, 30% FiO2. Patient is currently on propofol 40 mics per kilogram per minute. Assessment and recommendations; 1. Patient admitted with respiratory failure most likely due to CHF exacerbation. However difficult to rule out superimposed pneumonia. Patient currently on appropriate antimicrobial regimen. 2. Severe peripheral vascular disease. Status post left lower extremity amputation in the past. 3. Chronic steroid use. Etiology is unclear. 4. History of diabetes. Continue current supportive care. Obtain follow-up chest x-ray 24 hours. Add Lasix 40 mg IV daily. Perform 2D echocardiogram. Clinical presentation as well as chest x-ray findings are not suggestive of pulmonary embolism. 40 minutes of critical care time was spent evaluating the patient. Consultation Date/Type/Reason Admit Date/Time Date of Consultation: Feb 13, 2019 Type of Consult Pulmonary/critical care Patient is a 73-year-old lady who was admitted to the hospital with complaints of shortness of breath. Patient was in respiratory failure and had to be intubated and then transferred to ICU. By the time I saw her, patient is orally intubated and sedated with propofol drip. Patient did not appear to be in any distress whatsoever. Per medical records, no CPR was done. Past medical history; 1. 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 2. Diabetes. 3. Peripheral vascular disease. With multiple right lower extremity surgeries as well. 4. CHF. 5. Chronic steroid use. Diagnosis is unclear. Medications; reviewed. Allergies; as outlined above. Family history, occupational history, social history are not available. Review of system; unable to be obtained. General exam; elderly female, orally intubated, sedated, currently in no distress. Date/Time of Note DATE: 02/13/19 TIME: 09:00 Past Medical History Medical History: congestive heart failure, coronary artery disease, other (See HPI) Home Meds Reported Medications Insulin Glargine,Hum.rec.anlog (Basaglar Kwikpen U-100) 100 Unit/1 Ml Insuln.pen, 0-12 UNIT SC QHS for PER SLIDING SCALE, EA 02/12/19 Insulin Aspart* (Novolog Insulin Pen*) 100 Unit/Ml Soln, 0-12 SC .SLIDING SCALE AC, EA 02/12/19 Dulaglutide (Trulicity) 1.5 Mg/0.5 Ml Pen.injctr, 1.5 MG SQ WEEKLY 02/12/19 Aspirin* (Aspirin* Chew) 81 Mg Tab.chew, 81 MG PO DAILY, TAB.CHEW 02/12/19 Clopidogrel Bisulfate (Clopidogrel) 75 Mg Tablet, 1 TAB ORAL DAILY 02/12/19 Tramadol HCl (Tramadol HCl) 50 Mg Tablet, 1 TAB ORAL Q6 PRN for PAIN LEVEL 4-6 02/12/19 Arginine Hcl (Arginine Hcl) 1 Gm Powder, 1 GM MC DAILY 02/12/19 Sacubitril/Valsartan (Entresto 49 mg-51 mg Tablet) 1 Each Tablet, 1 TAB ORAL DAILY 02/12/19 Atorvastatin* (Atorvastatin*) 80 Mg Tablet, 1 TAB ORAL QHS 02/12/19 Carvedilol* (Carvedilol*) 25 Mg Tablet, 1 TAB ORAL BID 02/12/19 Spironolactone* (Aldactone*) 25 Mg Tablet, 12.5 MG PO QAM, #60 TAB 02/12/19 Ampicillin Sodium-Sulbactam Sodium (Unasyn*) 3 Gm Soln, 3 GM IVPB Q6, VIAL 02/12/19 Medications Current Medications Propofol 100 ml @ 3 mls/hr ONCE STAT IV Last administered on 02/12/19at 05:29; Admin Dose 3 MLS/HR; Start 02/12/19 at 04:06; Stop 02/13/19 at 13:25 Ondansetron HCl (Zofran Inj) 4 mg Q6H PRN IV NAUSEA AND/OR VOMITING; Start 02/12/19 at 07:30 Albuterol (Ventolin Hfa) 2 puff Q2H RESP THERAPY PRN INH SHORTNESS OF BREATH; Start 02/12/19 at 07:30 Ipratropium [place] (Atrovent Hfa) 2 puff Q2H RESP THERAPY PRN INH SHORTNESS OF BREATH; Start 02/12/19 at 07:30 Acetaminophen (Tylenol Liquid) 650 mg Q6H PRN PO PAIN LEVEL 1-3 OR FEVER; Start 02/12/19 at 07:30 Acetaminophen (Tylenol Supp) 650 mg Q4H PRN [place] PAIN LEVEL 1-3 OR FEVER; Start 02/12/19 at 07:30 Lorazepam (Ativan) 1 mg Q2H PRN IV ANXIETY; Start 02/12/19 at 07:30 Propofol 100 ml @ 2.748 mls/ hr PER PROTOCOL IV Last administered on 02/13/19at 07:26; Admin Dose 21.984 MLS/HR; Start 02/12/19 at 07:30 Famotidine (Pepcid Iv) 20 mg Q24H IV Last administered on 02/12/19at 11:01; Admin Dose 20 MG; Start 02/12/19 at 07:30 Aspirin (Aspirin) 81 mg DAILY PO Last administered on 02/12/19at 11:01; Admin Dose 81 MG; Start 02/12/19 at 09:00 Clopidogrel Bisulfate (plaVIX) 75 mg DAILY NGT Last administered on 02/12/19at 11 :01; Admin Dose 75 MG; Start 02/12/19 at 09:00 Miscellaneous Information 1 gm DAILY MC ; Start 02/12/19 at 09:00; Status UNV Atorvastatin Calcium (Lipitor) 80 mg QHS NGT Last administered on 02/12/19at 20:52; Admin Dose 80 MG; Start 02/12/19 at 21:00 Diagnostic Test (Pha) (Accu-Chek) 1 ea 02 XX ; Start 02/13/19 at 02:00 Miscellaneous Information 1 ea NOTE XX ; Start 02/12/19 at 09:30 Glucose (Glutose) 15 gm Q15M PRN PO DECREASED GLUCOSE; Start 02/12/19 at 09:30 Glucose (Glutose) 22.5 gm Q15M PRN PO DECREASED GLUCOSE; Start 02/12/19 at 09:30 Dextrose (D50w Syringe) 25 ml Q15M PRN IV DECREASED GLUCOSE; Start 02/12/19 at 09:30 Dextrose (D50w Syringe) 50 ml Q15M PRN IV DECREASED GLUCOSE; Start 02/12/19 at 09:30 Glucagon (Glucagen) 1 mg Q15M PRN IM DECREASED GLUCOSE; Start 02/12/19 at 09:30 Glucose (Glutose) 15 gm Q15M PRN BUCCAL DECREASED GLUCOSE; Start 02/12/19 at 09:30 Prednisone (Prednisone) 50 mg ONCE ONCE PO ; Start 02/13/19 at 09:00; Stop 02/13/19 at 09:01 Insulin Glargine (Lantus) 20 units DAILY@2000 SC Last administered on 02/12/19 20:55; Admin Dose 20 UNITS; Start 02/12/19 at 20:00 Famotidine (Pepcid Iv) 20 mg BID IV Last administered on 02/12/19 20:52; Admin Dose 20 MG; Start 02/12/19 at 21:00 Apixaban (Eliquis) 10 mg BID NGT Last administered on 02/12/19at 17:57; Admin Dose 10 MG; Start 02/12/19 at 18:00 Ampicillin Sodium/ Sulbactam Sodium 100 ml @ 100 mls/hr Q6H IVPB Last adm inistered on 02/13/19at 02:15; Admin Dose 100 MLS/HR; Start 02/12/19 at 20:00 Insulin Aspart (Novolog Insulin Pen) NOVOLOG *MODERATE* ALGORI... Q4 SC Last administered on 02/13/19at 05:47; Admin Dose 6 UNIT; Start 02/12/19 at 23:07 Allergies: Coded Allergies: heparin (Verified Allergy, Unknown, 02/12/19) Uncoded Allergies: IODINE (Allergy, Unknown, 02/12/19) Past Surgical History Past Surgical Hx: other (Unknown) Social History Alcohol Use: none Smoking Status: Current every day smoker Drug Use: none Exam/Review of Systems Exam Vitals Vital Signs Date Temp Pulse Resp B/P (MAP) Pulse Ox O2 O2 Flow FiO2 Time Delivery Rate 02/13/19 77 08:00 02/13/19 15 136/86 97 Mechanical 06:00 (103) Ventilator 02/13/19 30 05:00 02/13/19 98.8 04:00 02/12/19 60 05:01 Intake and Output 02/12/19 02/12/19 02/13/19 1515:00 23:00 07:00 IntakeIntake Total 284.984 ml 275.452 ml OutputOutput Total 200 ml 300 ml BalanceBalance 84.984 ml -24.548 ml Exam H EENT exam; supple neck, positive JVD. No lymphadenopathy. Midline trachea. No thyromegaly. Orally intubated. Pupils are small bilaterally. Chest exam; diminished breath sounds bilaterally. S1-S2 audible, no murmurs. Regular rhythm. Abdomen exam; soft, mildly protuberant. No organomegaly. Bowel sounds are audible. Extremity exam; trace edema right lower extremity. Multiple well-healed scars are present. There is a left lower extremity ambulation at hip. [employer] exam; patient is sedated. Results Result Diagram: 02/12/19 0417 02/12/19 0417 Results 24hrs Laboratory Tests Test 02/12/19 09:52 02/12/19 10:48 02/12/19 13:01 02/12/19 14:19 Bedside Glucose 263 H 229 H Creatine Kinase 115 Creatine Kinase 2.1 Index Creatinine Kinase 2.43 H MB (Mass) Troponin I 0.069 Blood Gas Specimen Blood arterial Source Arterial Blood 02/12/2019 2:08:47 Date Drawn PM Arterial Blood pH 7.447 (Temp corrected) Arterial Blood 38.0 pCO2 (Temp correct) Arterial Blood pO2 76.3 L (Temp corrected) Arterial Blood 25.6 HCO3 Arterial Blood 1.7 Base Excess Arterial Blood 95.2 Oxygen Saturation Dawson Test ACCEPTAB Arterial Blood Gas Right Radial Puncture Site Arterial 0.7 Blood Carboxyhemog lobin Arterial Blood 0.1 Methemoglobin Blood Gas A-a O2 93.0 H Differential Oxyhemoglobin 94.4 Percent Blood Gas 37.0 Temperature Blood Gas 16.0 Respiration Rate Blood Gas Actual 20 Respiration Rate Blood Gas Modality VENT - AC FiO2 30.0 Blood Gas Tidal 500.0 Volume Blood Gas Low PEEP 5.0 Setting Blood Gas Notified RT Whom Blood Gas Notified 02/12/2019 2:16:33 Time PM Test 02/12/19 19:13 02/12/19 20:49 02/13/19 01:21 02/13/19 05:42 Creatine Kinase 153 Creatine Kinase 1.3 Index Creatinine Kinase 1.93 MB (Mass) Troponin I 0.072 Bedside Glucose 191 254 H 254 H Medications Medication Current Medications Propofol 100 ml @ 3 mls/hr ONCE STAT IV Last administered on 02/12/19at 05:29; Admin Dose 3 MLS/HR; Start 02/12/19 at 04:06; Stop 02/13/19 at 13:25 Ondansetron HCl (Zofran Inj) 4 mg Q6H PRN IV NAUSEA AND/OR VOMITING; Start 02/12/19 at 07:30 Albuterol (Ventolin Hfa) 2 puff Q2H RESP THERAPY PRN INH SHORTNESS OF BREATH; Start 02/12/19 at 07:30 Ipratropium [place] (Atrovent Hfa) 2 puff Q2H RESP THERAPY PRN INH SHORTNESS OF BREATH; Start 02/12/19 at 07:30 Acetaminophen (Tylenol Liquid) 650 mg Q6H PRN PO PAIN LEVEL 1-3 OR FEVER; Start 02/12/19 at 07:30 Acetaminophen (Tylenol Supp) 650 mg Q4H PRN [place] PAIN LEVEL 1-3 OR FEVER; Start 02/12/19 at 07:30 Lorazepam (Ativan) 1 mg Q2H PRN IV ANXIETY; Start 02/12/19 at 07:30 Propofol 100 ml @ 2.748 mls/ hr PER PROTOCOL IV Last administered on 02/13/19at 07:26; Admin Dose 21.984 MLS/HR; Start 02/12/19 at 07:30 Famotidine (Pepcid Iv) 20 mg Q24H IV Last administered on 02/12/19at 11:01; Admin Dose 20 MG; Start 02/12/19 at 07:30 Aspirin (Aspirin) 81 mg DAILY PO Last administered on 02/12/19at 11:01; Admin Dose 81 MG; Start 02/12/19 at 09:00 Clopidogrel Bisulfate (plaVIX) 75 mg DAILY NGT Last administered on 02/12/19at 11:01; Admin Dose 75 MG; Start 02/12/19 at 09:00 Miscellaneous Information 1 gm DAILY MC ; Start 02/12/19 at 09:00; Status UNV Atorvastatin Calcium (Lipitor) 80 mg QHS NGT Last administered on 02/12/19at 20:52; Admin Dose 80 MG; Start 02/12/19 at 21:00 Diagnostic Test (Pha) (Accu-Chek) 1 ea 02 XX ; Start 02/13/19 at 02:00 Miscellaneous Information 1 ea NOTE XX ; Start 02/12/19 at 09:30 Glucose (Glutose) 15 gm Q15M PRN PO DECREASED GLUCOSE; Start 02/12/19 at 09:30 Glucose (Glutose) 22.5 gm Q15M PRN PO DECREASED GLUCOSE; Start 02/12/19 at 09:30 Dextrose (D50w Syringe) 25 ml Q15M PRN IV DECREASED GLUCOSE; Start 02/12/19 at 09:30 Dextrose (D50w Syringe) 50 ml Q15M PRN IV DECREASED GLUCOSE; Start 02/12/19 at 09:30 Glucagon (Glucagen) 1 mg Q15M PRN IM DECREASED GLUCOSE; Start 02/12/19 at 09:30 Glucose (Glutose) 15 gm Q15M PRN BUCCAL DECREASED GLUCOSE; Start 02/12/19 at 09:30 Prednisone (Prednisone) 50 mg ONCE ONCE PO ; Start 02/13/19 at 09:00; Stop 02/13/19 at 09:01 Insulin Glargine (Lantus) 20 units DAILY@2000 SC Last administered on 02/12/19at 20:55; Admin Dose 20 UNITS; Start 02/12/19 at 20:00 Famotidine (Pepcid Iv) 20 mg BID IV Last administered on 02/12/19at 20:52; Admin Dose 20 MG; Start 02/12/19 at 21:00 Apixaban (Eliquis) 10 mg BID NGT Last administered on 02/12/19at 17:57; Admin Dose 10 MG; Start 02/12/19 at 18:00 Ampicillin Sodium/ Sulbactam Sodium 100 ml @ 100 mls/hr Q6H IVPB Last administered on 02/13/19at 02:15; Admin Dose 100 MLS/HR; Start 02/12/19 at 20:00 Insulin Aspart (Novolog Insulin Pen) NOVOLOG *MODERATE* ALGORI... Q4 SC Last administered on 02/13/19at 05:47; Admin Dose 6 UNIT; Start 02/12/19 at 23:07 SANTHOSH GABRIEL Feb 13, 2019 09:06
[2019-02-13] MEDS ORDERED: IODIXANOL LOCM 50 ML BTL ONE (09:49)
[2019-02-13] MEDS: CLOPIDOGREL 75 MG TAB NGT SCH (11:43)
[2019-02-13] MEDS: FAMOTIDINE 20 MG INJ IV SCH ×2 (11:43→21:45)
[2019-02-13] MEDS: FUROSEMIDE 40 MG INJ IV SCH (11:43)
[2019-02-13] MEDS: ASPIRIN 81 MG TAB PO SCH (11:44)
[2019-02-13] MEDS: PIPER-TAZO 3.375 GM IV (PMX) 100 ML IVPB SCH ×2 (11:46→17:23)
--- NOTE | 2019-02-13 15:54 | PN ---
Date/Time of Note Date/Time of Note DATE: 02/13/19 TIME: 15:50 Assessment/Plan VTE Prophylaxis Risk score (from Ns)>0 risk: 17 SCD applied (from Ns): No SCD contraindicated: other (PAD) Pharmacological prophylaxis: NA/contraindicated Pharm contraindication: anticoag not tolerated Lines/Catheters IV Catheter Type (from [facility]): PICC Line Central line still needed: Yes Urinary Cath still in place: Yes Reason Cath still needed: other (indicate) (intubated) Assessment/Plan Assessment/Plan 73 yo morbidly obese woman history of peripheral vascular disease, diabetes type II, CHF, likely COPD presents with acute respiratory failure #Acute respiratory failure - CTPA negative for PE - Will stop anticoagulation. - Likely CHF exacerbation - Gentle diuresis - Extubation per pulmonary. #Diabetes type II, insulin dependent - aspart sliding scale, glargine 20 qhs. #Peripheral vascular disease - Cont aspirin, plavix, statin - Monitor carefully for bleeding while on anticoag and dual antiplatelet. - Consulted podiatry for foot ulcer. #CHF - Hold negative inotropes while critically ill #History of DVT - LE duplex negative for DVT. 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 GI: famotidine DVT: None Result Diagram: 02/12/1941602/12/19416 Subjective 24 Hr Interval Summary Free Text/Dictation No acute overnight events. Not on pressors; minimal vent settings. I updated granddaughter Ann at the bedside with the plan, answered questions. Exam/Review of Systems Exam Vitals Vital Signs Date Temp Pulse Resp B/P (MAP) Pulse Ox O2 O2 Flow FiO2 Time Delivery Rate 02/13/19 74 17 164/62 97 Mechanical 13:00 (96) Ventilator 02/13/19 98.8 12:00 02/13/19 30 11:40 02/12/19 60 05:01 Intake and Output 02/12/19 02/12/19 02/13/19 1515:00 23:00 07:00 IntakeIntake Total 284.984 ml 275.452 ml OutputOutput Total 200 ml 330 ml BalanceBalance 84.984 ml -54.548 ml Exam Gen: Morbidly obese woman intubated and sedated in [facility]. HEENT: Moist mucous membranes. ET tube in place. Neck: Supple, no lymphadenopathy. Card: Regular rate and rhythm, no murmurs. Pulm: Mechanical breath sounds bilaterally. Minimal crackles. Abd: Soft, nontender, nondistended. Hypoactive bowel sounds. 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 R leg with well healed bypass scar below the knee. Skin: R lower leg erythema and induration, superficial tense blisters. Right great toe medial ulcer, clean based, no drainage, no surrounding erythema. Results Results 24hrs Laboratory Tests Test 02/12/19 19:13 02/12/19 20:49 02/13/19 01:21 02/13/19 05:42 Creatine Kinase 153 Creatine Kinase Index 1.3 Creatinine Kinase MB 1.93 (Mass) Troponin I 0.072 Bedside Glucose 191 254 H 254 H Test 02/13/19 11:46 02/13/19 14:27 Bedside Glucose 247 H 250 H Medications Medication Current Medications Ondansetron HCl (Zofran Inj) 4 mg Q6H PRN IV NAUSEA AND/OR VOMITING; Start 02/12/19 at 07:30 Albuterol (Ventolin Hfa) 2 puff Q2H RESP THERAPY PRN INH SHORTNESS OF BREATH; Start 02/12/19 at 07:30 Ipratropium Ar[place]ard (Atrovent Hfa) 2 puff Q2H RESP THERAPY PRN INH SHORTNESS OF BREATH; Start 02/12/19 at 07:30 Acetaminophen (Tylenol Liquid) 650 mg Q6H PRN PO PAIN LEVEL 1-3 OR FEVER; Start 02/12/19 at 07:30 Acetaminophen (Tylenol Supp) 650 mg Q4H PRN [place] PAIN LEVEL 1-3 OR FEVER; Start 02/12/19 at 07:30 Lorazepam (Ativan) 1 mg Q2H PRN IV ANXIETY; Start 02/12/19 at 07:30 Propofol 100 ml @ 2.748 mls/ hr PER PROTOCOL IV Last administered on 02/13/19at 14:35; Admin Dose 27.48 MLS/HR; Start 02/12/19 at 07:30 Aspirin (Aspirin) 81 mg DAILY PO Last administered on 02/13/19at 11:44; Admin Dose 81 MG; Start 02/12/19 at 09:00 Clopidogrel Bisulfate (plaVIX) 75 mg DAILY NGT Last administered on 02/13/19at 11:43; Admin Dose 75 MG; Start 02/12/19 at 09:00 Atorvastatin Calcium (Lipitor) 80 mg QHS NGT Last administered on 02/12/19at 20:52; Admin Dose 80 MG; Start 02/12/19 at 21:00 Diagnostic Test (Pha) (Accu-Chek) 1 ea 02 XX ; Start 02/13/19 at 02:00 Miscellaneous Information 1 ea NOTE XX ; Start 02/12/19 at 09:30 Glucose (Glutose) 15 gm Q15M PRN PO DECREASED GLUCOSE; Start 02/12/19 at 09:30 Glucose (Glutose) 22.5 gm Q15M PRN PO DECREASED GLUCOSE; Start 02/12/19 at 09:30 Dextrose (D50w Syringe) 25 ml Q15M PRN IV DECREASED GLUCOSE; Start 02/12/19 at 09:30 Dextrose (D50w Syringe) 50 ml Q15M PRN IV DECREASED GLUCOSE; Start 02/12/19 at 09:30 Glucagon (Glucagen) 1 mg Q15M PRN IM DECREASED GLUCOSE; Start 02/12/19 at 09:30 Glucose (Glutose) 15 gm Q15M PRN BUCCAL DECREASED GLUCOSE; Start 02/12/19 at 09:30 Insulin Glargine (Lantus) 20 units DAILY@2000 SC Last administered on 02/12/19at 20:55; Admin Dose 20 UNITS; Start 02/12/19 at 20:00 Insulin Aspart (Novolog Insulin Pen) NOVOLOG *MODERATE* ALGORI... Q4 SC Last administered on 02/13/19at 14:34; Admin Dose 6 UNIT; Start 02/12/19 at 23:07 Furosemide (Lasix) 40 mg DAILY IV Last administered on 02/13/19at 11:43; Admin Dose 40 MG; Start 02/13/19 at 09:00 Piperacillin Sod/ Tazobactam Sod 100 ml @ 200 mls/hr Q6 IVPB Last administered on 02/13/19at 11:46; Admin Dose 200 MLS/HR; Start 02/13/19 at 12:00 Famotidine (Pepcid Iv) 20 mg BID IV ; Start 02/13/19 at 21:00 Fentanyl 100 ml @ 2.5 mls/hr TITRATE IV ; Start 02/13/19 at 15:00 ANTON OZUNA MD Feb 13, 2019 15:54
[2019-02-13] MEDS: FENTAnyl (DRIP) 1000 mcg/100mL 100 ML IV SCH (16:36)
[2019-02-13] MEDS ORDERED: POTASSIUM CHLORIDE 20 MEQ POWDER FOR ORAL SOLN NGT ONE (17:00)
--- NOTE | 2019-02-13 17:55 | CONS ---
Assessment/Plan Assessment/Plan Assessment/Plan (Daily) Right hallux diabetic ulcer PAD CHF exacerbation Respiratory failure DM2 with hyperglycemia Hx of left lower extremity hip disarticulation Intubation with mechanical ventilator hx of HIT Plan Patient was seen and examined and family was present. A 30 minute discussion wa s had regarding the history of patient and the presentation of wound. Discussed with patient that X-rays, MRI, wound culture, and vascular studies will be ordered. The wound does not appear infected as it is dry, without erythema and no purulence appreciated. There is concern for osteomyelitis due to the chronicity of the wound. Patient presents as a complicated vascular patient with extensive work done previously and complication of HIT. Recommend a vascular surgery evaluation. Once patient is medically stable patient, we discussed OR debridement and application of allograft to the right hallux wound site. Recommend daily wound dressing change with dakins irrigation, iodosorb and dry sterile dressings. Nursing instructions provided and recommend offloading of heel with pillows. Consultation Date/Type/Reason Admit Date/Time Date/Time of Note DATE: 02/13/19 TIME: 17:55 Hx of Present Illness 73 y/o F patient with multiple co-morbidities admitted to the hospital for CHF exacerbation and she is intubated with mechanical ventilator, presents to the ICU with chronic right hallux ulceration. Patient has history of HIT which has lead her to have a left hip disarticulation. Patient had previous bypass surgery done to her bilateral lower extremities and she was being followed at [facility]. Patient's daughter reports that she had a physician see her at her home to debride the right hallux ulcer but due to pain was unable to tolerate the procedures. Patient reports her wounds respond well to iodosorb. ROS negative except for HPI Past Medical History Medical History: congestive heart failure, coronary artery disease, other (See HPI) Home Meds Reported Medications Insulin Glargine,Hum.rec.anlog (Basaglar Kwikpen U-100) 100 Unit/1 Ml Insuln.pen, 0-12 UNIT SC QHS for PER SLIDING SCALE, EA 02/12/19 Insulin Aspart* (Novolog Insulin Pen*) 100 Unit/Ml Soln, 0-12 SC .SLIDING SCALE AC, EA 02/12/19 Dulaglutide (Trulicity) 1.5 Mg/0.5 Ml Pen.injctr, 1.5 MG SQ WEEKLY 02/12/19 Aspirin* (Aspirin* Chew) 81 Mg Tab.chew, 81 MG PO DAILY, TAB.CHEW 02/12/19 Clopidogrel Bisulfate (Clopidogrel) 75 Mg Tablet, 1 TAB ORAL DAILY 02/12/19 Tramadol HCl (Tramadol HCl) 50 Mg Tablet, 1 TAB ORAL Q6 PRN for PAIN LEVEL 4-6 02/12/19 Arginine Hcl (Arginine Hcl) 1 Gm Powder, 1 GM MC DAILY 02/12/19 Sacubitril/Valsartan (Entresto 49 mg-51 mg Tablet) 1 Each Tablet, 1 TAB ORAL DAILY 02/12/19 Atorvastatin* (Atorvastatin*) 80 Mg Tablet, 1 TAB ORAL QHS 02/12/19 Carvedilol* (Carvedilol*) 25 Mg Tablet, 1 TAB ORAL BID 02/12/19 Spironolactone* (Aldactone*) 25 Mg Tablet, 12.5 MG PO QAM, #60 TAB 02/12/19 Ampicillin Sodium-Sulbactam Sodium (Unasyn*) 3 Gm Soln, 3 GM IVPB Q6, VIAL 02/12/19 Medications Current Medications Ondansetron HCl (Zofran Inj) 4 mg Q6H PRN IV NAUSEA AND/OR VOMITING; Start 02/12/19 at 07:30 Albuterol (Ventolin Hfa) 2 puff Q2H RESP THERAPY PRN INH SHORTNESS OF BREATH; Start 02/12/19 at 07:30 Ipratropium Danielson (Atrovent Hfa) 2 puff Q2H RESP THERAPY PRN INH SHORTNESS OF BREATH; Start 02/12/19 at 07:30 Acetaminophen (Tylenol Liquid) 650 mg Q6H PRN PO PAIN LEVEL 1-3 OR FEVER; Start 02/12/19 at 07:30 Acetaminophen (Tylenol Supp) 650 mg Q4H PRN [place] PAIN LEVEL 1-3 OR FEVER; Start 02/12/19 at 07:30 Lorazepam (Ativan) 1 mg Q2H PRN IV ANXIETY; Start 02/12/19 at 07:30 Propofol 100 ml @ 2.748 mls/ hr PER PROTOCOL IV Last administered on 02/13/19at 14:35; Admin Dose 27.48 MLS/HR; Start 02/12/19 at 07:30 Aspirin (Aspirin) 81 mg DAILY PO Last administered on 02/13/19at 11:44; Admin Dose 81 MG; Start 02/12/19 at 09:00 Clopidogrel Bisulfate (plaVIX) 75 mg DAILY NGT Last administered on 02/13/19at 11:43; Admin Dose 75 MG; Start 02/12/19 at 09:00 Atorvastatin Calcium (Lipitor) 80 mg QHS NGT Last administered on 02/12/19 20:52; Admin Dose 80 MG; Start 02/12/19 at 21:00 Diagnostic Test (Pha) (Accu-Chek) 1 ea 02 XX ; Start 02/13/19 at 02:00 Miscellaneous Information 1 ea NOTE XX ; Start 02/12/19 at 09:30 Glucose (Glutose) 15 gm Q15M PRN PO DECREASED GLUCOSE; Start 02/12/19 at 09:30 Glucose (Glutose) 22.5 gm Q15M PRN PO DECREASED GLUCOSE; Start 02/12/19 at 09:30 Dextrose (D50w Syringe) 25 ml Q15M PRN IV DECREASED GLUCOSE; Start 02/12/19 at 09:30 Dextrose (D50w Syringe) 50 ml Q15M PRN IV DECREASED GLUCOSE; Start 02/12/19 at 09:30 Glucagon (Glucagen) 1 mg Q15M PRN IM DECREASED GLUCOSE; Start 02/12/19 at 09:30 Glucose (Glutose) 15 gm Q15M PRN BUCCAL DECREASED GLUCOSE; Start 02/12/19 at 09:30 Insulin Aspart (Novolog Insulin Pen) NOVOLOG *MODERATE* ALGORI... Q4 SC Last administered on 02/13/19at 17:29; Admin Dose 2 UNIT; Start 02/12/19 at 23:07 Furosemide (Lasix) 40 mg DAILY IV Last administered on 02/13/19at 11:43; Admin Dose 40 MG; Start 02/13/19 at 09:00 Piperacillin Sod/ Tazobactam Sod 100 ml @ 200 mls/hr Q6 IVPB Last administered on 02/13/19 17:23; Admin Dose 200 MLS/HR; Start 02/13/19 at 12:00 Famotidine (Pepcid Iv) 20 mg BID IV ; Start 02/13/19 at 21:00 Fentanyl 100 ml @ 2.5 mls/hr TITRATE IV Last administered on 02/13/19at 16:36; Admin Dose 2.5 MLS/HR; Start 02/13/19 at 15:00 Insulin Glargine (Lantus) 40 units DAILY@2000 SC ; Start 02/13/19 at 20:00 Allergies: Coded Allergies: heparin (Verified Allergy, Unknown, 02/12/19) Uncoded Allergies: IODINE (Allergy, Unknown, 02/12/19) Past Surgical History Past Surgical Hx: other (Unknown) Social History Alcohol Use: none Smoking Status: Current every day smoker Drug Use: none Exam/Review of Systems Exam Vitals Vital Signs Date Temp Pulse Resp B/P (MAP) Pulse Ox O2 O2 Flow FiO2 Time Delivery Rate 02/13/19 72 16 98 30 17:20 02/13/19 164/62 Mechanical 13:00 (96) Ventilator 02/13/19 98.8 12:00 02/12/19 60 05:01 Intake and Output 02/12/19 02/12/19 02/13/19 1515:00 23:00 07:00 IntakeIntake Total 284.984 ml 275.452 ml OutputOutput Total 200 ml 330 ml BalanceBalance 84.984 ml -54.548 ml Exam DP/PT non palpable Popliteal weakly palpable Unable to assess protective sensations Patient intubated Left lower extremity hip disarticulation appreciated Right hallux medial aspect 3 x 2 x 0.4cm fibrotic wound bed dry in nature, no purulence expressed, no proximal streaking Results Result Diagram: 02/13/19 1607 02/13/19 1607 Results 24hrs Laboratory Tests Test 02/12/19 19:13 02/12/19 20:49 02/13/19 01:21 02/13/19 05:42 Creatine Kinase 153 Creatine Kinase Index 1.3 Creatinine Kinase MB 1.93 (Mass) Troponin I 0.072 Bedside Glucose 191 254 H 254 H Test 02/13/19 11:46 02/13/19 14:27 02/13/19 16:07 02/13/19 17:25 Bedside Glucose 247 H 250 H 162 White Blood Count 11.0 H Red Blood Count 4.48 Hemoglobin 13.2 Hematocrit 40.5 Mean Corpuscular Volume 90.4 Mean Corpuscular 29.5 Hemoglobin Mean Corpuscular 32.6 Hemoglobin Concent Red Cell Distribution 13.5 Width Platelet Count 353 Mean Platelet Volume 10.6 H Immature Granulocytes % 0.400 Neutrophils % 84.8 H Lymphocytes % 7.1 L Monocytes % 7.3 Eosinophils % 0.0 Basophils % 0.4 Nucleated Red Blood 0.0 Cells % Immature Granulocytes # 0.040 H Neutrophils # 9.4 H Lymphocytes # 0.8 Monocytes # 0.8 Eosinophils # 0.0 Basophils # 0.0 Nucleated Red Blood 0.0 Cells # Sodium Level 143 Potassium Level 3.4 L Chloride Level 108 Carbon Dioxide Level 26 Anion Gap 9 Blood Urea Nitrogen 32 #H Creatinine 0.98 Est Glomerular Filtrat Rate mL/min Glucose Level 197 # Calcium Level 8.7 Phosphorus Level 4.4 Magnesium Level 2.1 Total Bilirubin 0.3 Direct Bilirubin 0.00 Indirect Bilirubin 0.3 Aspartate Amino 26 Transf (AST/SGOT) Alanine 98 H Aminotransferase (ALT/SG PT) Alkaline Phosphatase 108 Total Protein 6.2 Albumin 3.1 L Globulin 3.10 Albumin/Globulin Ratio 1.00 Medications Medication Current Medications Ondansetron HCl (Zofran Inj) 4 mg Q6H PRN IV NAUSEA AND/OR VOMITING; Start 02/12/19 at 07:30 Albuterol (Ventolin Hfa) 2 puff Q2H RESP THERAPY PRN INH SHORTNESS OF BREATH; Start 02/12/19 at 07:30 Ipratropium Danielson (Atrovent Hfa) 2 puff Q2H RESP THERAPY PRN INH SHORTNESS OF BREATH; Start 02/12/19 at 07:30 Acetaminophen (Tylenol Liquid) 650 mg Q6H PRN PO PAIN LEVEL 1-3 OR FEVER; Start 02/12/19 at 07:30 Acetaminophen (Tylenol Supp) 650 mg Q4H PRN [place] PAIN LEVEL 1-3 OR FEVER; Start 02/12/19 at 07:30 Lorazepam (Ativan) 1 mg Q2H PRN IV ANXIETY; Start 02/12/19 at 07:30 Propofol 100 ml @ 2.748 mls/ hr PER PROTOCOL IV Last administered on 02/13/19at 14:35; Admin Dose 27.48 MLS/HR; Start 02/12/19 at 07:30 Aspirin (Aspirin) 81 mg DAILY PO Last administered on 02/13/19at 11:44; Admin Dose 81 MG; Start 02/12/19 at 09:00 Clopidogrel Bisulfate (plaVIX) 75 mg DAILY NGT Last administered on 02/13/19at 11:43; Admin Dose 75 MG; Start 02/12/19 at 09:00 Atorvastatin Calcium (Lipitor) 80 mg QHS NGT Last administered on 02/12/19at 20:52; Admin Dose 80 MG; Start 02/12/19 at 21:00 Diagnostic Test (Pha) (Accu-Chek) 1 ea 02 XX ; Start 02/13/19 at 02:00 Miscellaneous Information 1 ea NOTE XX ; Start 02/12/19 at 09:30 Glucose (Glutose) 15 gm Q15M PRN PO DECREASED GLUCOSE; Start 02/12/19 at 09:30 Glucose (Glutose) 22.5 gm Q15M PRN PO DECREASED GLUCOSE; Start 02/12/19 at 09:30 Dextrose (D50w Syringe) 25 ml Q15M PRN IV DECREASED GLUCOSE; Start 02/12/19 at 09:30 Dextrose (D50w Syringe) 50 ml Q15M PRN IV DECREASED GLUCOSE; Start 02/12/19 at 09:30 Glucagon (Glucagen) 1 mg Q15M PRN IM DECREASED GLUCOSE; Start 02/12/19 at 09:30 Glucose (Glutose) 15 gm Q15M PRN BUCCAL DECREASED GLUCOSE; Start 02/12/19 at 09:30 Insulin Aspart (Novolog Insulin Pen) NOVOLOG *MODERATE* ALGORI... Q4 SC Last administered on 02/13/19at 17:29; Admin Dose 2 UNIT; Start 02/12/19 at 23:07 Furosemide (Lasix) 40 mg DAILY IV Last administered on 02/13/19at 11:43; Admin Dose 40 MG; Start 02/13/19 at 09:00 Piperacillin Sod/ Tazobactam Sod 100 ml @ 200 mls/hr Q6 IVPB Last administered on 02/13/19at 17:23; Admin Dose 200 MLS/HR; Start 02/13/19 at 12:00 Famotidine (Pepcid Iv) 20 mg BID IV ; Start 02/13/19 at 21:00 Fentanyl 100 ml @ 2.5 mls/hr TITRATE IV Last administered on 02/13/19at 16:36; Admin Dose 2.5 MLS/HR; Start 02/13/19 at 15:00 Insulin Glargine (Lantus) 40 units DAILY@2000 SC ; Start 02/13/19 at 20:00 NASIR MILLER DPM Feb 13, 2019 17:55
[2019-02-13] MEDS: INSULIN GLARGINE [LANTus] (100 UNITS/ML) SYG SC SCH (20:07)
[2019-02-13] MEDS: ATORVASTATIN 80 MG TAB NGT SCH (21:45)
[2019-02-14] VITALS (56 sets, daily range): BP systolic 74–181; BP diastolic 45–75; PULSE 72–97; RESP 16–23
[2019-02-14] MEDS: PIPER-TAZO 3.375 GM IV (PMX) 100 ML IVPB SCH ×4 (00:24→17:08)
[2019-02-14] MEDS: INSULIN ASPART [NOVOLOG] 3 ML PEN SC SCH ×6 (00:56→20:28)
[2019-02-14] MEDS: PROPOFOL 100 ML IV SCH ×6 (01:39→21:46)
[2019-02-14] MEDS: ACCU-CHEK XX SCH (02:00)
--- NOTE | 2019-02-14 08:20 | CONS ---
Assessment/Plan Assessment/Plan Assessment/Plan (Daily) There is been no change in patient's overall clinical condition overnight, patient remains intubated, sedated, pulmonary emboli has been ruled out. Chest x-ray today indicates interval improvement in some mild cardiogenic pulmonary venous hypertension, mild cardiomegaly and arteriosclerotic vascular disease and bibasilar discoid atelectasis and trace bilateral pleural effusions. Patient is still critically ill waiting for second daughter to arrive to have a family conference. Consultation Date/Type/Reason Admit Date/Time Date/Time of Note DATE: 02/14/19 TIME: 08:19 Hx of Present Illness 73-year-old female who developed sudden onset of acute respiratory distress at her home with family members present. She was initially treated with HHN but did not improve and at approximately 3 AM in the morning was transferred to [facility] required intubation. 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 CT angiogram pending. We do not know patient's baseline mental status per the night she is able to do any ADLs independently and family members not available at the beds [facility] at this time. Patient is full code Past Medical History Medical History: congestive heart failure, coronary artery disease, other (See HPI) Home Meds Reported Medications Insulin Glargine,Hum.rec.anlog (Basaglar Kwikpen U-100) 100 Unit/1 Ml Insuln.pen, 0-12 UNIT SC QHS for PER SLIDING SCALE, EA 02/12/19 Insulin Aspart* (Novolog Insulin Pen*) 100 Unit/Ml Soln, 0-12 SC .SLIDING SCALE AC, EA 02/12/19 Dulaglutide (Trulicity) 1.5 Mg/0.5 Ml Pen.injctr, 1.5 MG SQ WEEKLY 02/12/19 Aspirin* (Aspirin* Chew) 81 Mg Tab.chew, 81 MG PO DAILY, TAB.CHEW 02/12/19 Clopidogrel Bisulfate (Clopidogrel) 75 Mg Tablet, 1 TAB ORAL DAILY 02/12/19 Tramadol HCl (Tramadol HCl) 50 Mg Tablet, 1 TAB ORAL Q6 PRN for PAIN LEVEL 4-6 02/12/19 Arginine Hcl (Arginine Hcl) 1 Gm Powder, 1 GM MC DAILY 02/12/19 Sacubitril/Valsartan (Entresto 49 mg-51 mg Tablet) 1 Each Tablet, 1 TAB ORAL DAILY 02/12/19 Atorvastatin* (Atorvastatin*) 80 Mg Tablet, 1 TAB ORAL QHS 02/12/19 Carvedilol* (Carvedilol*) 25 Mg Tablet, 1 TAB ORAL BID 02/12/19 Spironolactone* (Aldactone*) 25 Mg Tablet, 12.5 MG PO QAM, #60 TAB 02/12/19 Ampicillin Sodium-Sulbactam Sodium (Unasyn*) 3 Gm Soln, 3 GM IVPB Q6, VIAL 02/12/19 Medications Current Medications Ondansetron HCl (Zofran Inj) 4 mg Q6H PRN IV NAUSEA AND/OR VOMITING; Start 02/12/19 at 07:30 Albuterol (Ventolin Hfa) 2 puff Q2H RESP THERAPY PRN INH SHORTNESS OF BREATH; Start 02/12/19 at 07:30 Ipratropium [place] (Atrovent Hfa) 2 puff Q2H RESP THERAPY PRN INH SHORTNESS OF BREATH; Start 02/12/19 at 07:30 Acetaminophen (Tylenol Liquid) 650 mg Q6H PRN PO PAIN LEVEL 1-3 OR FEVER; Start 02/12/19 at 07:30 Acetaminophen (Tylenol Supp) 650 mg Q4H PRN [place] PAIN LEVEL 1-3 OR FEVER; Start 02/12/19 at 07:30 Lorazepam (Ativan) 1 mg Q2H PRN IV ANXIETY; Start 02/12/19 at 07:30 Propofol 100 ml @ 2.748 mls/ hr PER PROTOCOL IV Last administered on 02/14/19at 05:00; Admin Dose 19.236 MLS/HR; Start 02/12/19 at 07:30 Aspirin (Aspirin) 81 mg DAILY PO Last administered on 02/13/19at 11:44; Admin Dose 81 MG; Start 02/12/19 at 09:00 Clopidogrel Bisulfate (plaVIX) 75 mg DAILY NGT Last administered on 02/13/19at 11:43; Admin Dose 75 MG; Start 02/12/19 at 09:00 Atorvastatin Calcium (Lipitor) 80 mg QHS NGT Last administered on 02/13/19at 21:45; Admin Dose 80 MG; Start 02/12/19 at 21:00 Diagnostic Test (Pha) (Accu-Chek) 1 ea 02 XX ; Start 02/13/19 at 02:00 Miscellaneous Information 1 ea NOTE XX ; Start 02/12/19 at 09:30 Glucose (Glutose) 15 gm Q15M PRN PO DECREASED GLUCOSE; Start 02/12/19 at 09:30 Glucose (Glutose) 22.5 gm Q15M PRN PO DECREASED GLUCOSE; Start 02/12/19 at 09:30 Dextrose (D50w Syringe) 25 ml Q15M PRN IV DECREASED GLUCOSE; Start 02/12/19 at 09:30 Dextrose (D50w Syringe) 50 ml Q15M PRN IV DECREASED GLUCOSE; Start 02/12/19 at 09:30 Glucagon (Glucagen) 1 mg Q15M PRN IM DECREASED GLUCOSE; Start 02/12/19 at 09:30 Glucose (Glutose) 15 gm Q15M PRN BUCCAL DECREASED GLUCOSE; Start 02/12/19 at 09:30 Insulin Aspart (Novolog Insulin Pen) NOVOLOG *MODERATE* ALGORI... Q4 SC Last administered on 02/14/19at 05:11; Admin Dose 4 UNIT; Start 02/12/19 at 23:07 Furosemide (Lasix) 40 mg DAILY IV Last administered on 02/13/19at 11:43; Admin Dose 40 MG; Start 02/13/19 at 09:00 Piperacillin Sod/ Tazobactam Sod 100 ml @ 200 mls/hr Q6 IVPB Last administered on 02/14/19at 06:22; Admin Dose 200 MLS/HR; Start 02/13/19 at 12:00 Famotidine (Pepcid Iv) 20 mg BID IV Last administered on 02/13/19at 21:45; Admin Dose 20 MG; Start 02/13/19 at 21:00 Fentanyl 100 ml @ 2.5 mls/hr TITRATE IV Last administered on 02/13/19at 16:36; Admin Dose 2.5 MLS/HR; Start 02/13/19 at 15:00 Insulin Glargine (Lantus) 40 units DAILY@2000 SC Last administered on 02/13/19at 20:07; Admin Dose 40 UNITS; Start 02/13/19 at 20:00 Potassium Chloride 100 ml @ 50 mls/hr Q2H IVPB ; Start 02/14/19 at 07:00; Stop 02/14/19 at 12:59 Allergies: Coded Allergies: heparin (Verified Allergy, Unknown, 02/12/19) Uncoded Allergies: IODINE (Allergy, Unknown, 02/12/19) Past Surgical History Past Surgical Hx: other (Unknown) Social History Alcohol Use: none Smoking Status: Current every day smoker Drug Use: none Exam/Review of Systems Exam Vitals Vital Signs Date Temp Pulse Resp B/P (MAP) Pulse Ox O2 O2 Flow FiO2 Time Delivery Rate 02/14/19 77 16 99 30 06:04 02/14/19 154/55 Mechanical 05:30 (88) Ventilator 02/14/19 97.8 04:00 02/12/19 60 05:01 Intake and Output 02/13/19 02/13/19 02/14/19 1515:00 23:00 07:00 IntakeIntake Total 292.40 ml 523.10 ml 601.11 ml OutputOutput Total 420 ml 470 ml 260 ml BalanceBalance -127.60 ml 53.10 ml 341.11 ml Constitutional: other (Sedated) Respiratory: congested cough, crackles/rales, diminished breath sounds Cardiovascular: regular rate and rhythm, nl pulses Gastrointestinal: soft, nl liver, spleen, non-tender; No ascites, No bowel sounds, No distended, No firm, No hepatomegaly, No mass, No rebound or guarding, No splenomegaly, No other Extremities: other (Without clubbing cyanosis or edema) Results Result Diagram: 02/14/19 0400 02/14/19 0400 Results 24hrs Laboratory Tests Test 02/13/19 11:46 02/13/19 14:27 02/13/19 16:07 02/13/19 17:25 Bedside Glucose 247 H 250 H 162 White Blood Count 11.0 H Red Blood Count 4.48 Hemoglobin 13.2 Hematocrit 40.5 Mean Corpuscular 90.4 Volume Mean Corpuscular 29.5 Hemoglobin Mean Corpuscular 32.6 Hemoglobin Concent Red Cell Distribution 13.5 Width Platelet Count 353 Mean Platelet Volume 10.6 H Immature Granulocytes 0.400 % Neutrophils % 84.8 H Lymphocytes % 7.1 L Monocytes % 7.3 Eosinophils % 0.0 Basophils % 0.4 Nucleated Red Blood 0.0 Cells % Immature Granulocytes 0.040 H # Neutrophils # 9.4 H Lymphocytes # 0.8 Monocytes # 0.8 Eosinophils # 0.0 Basophils # 0.0 Nucleated Red Blood 0.0 Cells # Sodium Level 143 Potassium Level 3.4 L Chloride Level 108 Carbon Dioxide Level 26 Anion Gap 9 Blood Urea Nitrogen 32 #H Creatinine 0.98 Est Glomerular Filtrat Rate mL/min Glucose Level 197 # Calcium Level 8.7 Phosphorus Level 4.4 Magnesium Level 2.1 Total Bilirubin 0.3 Direct Bilirubin 0.00 Indirect Bilirubin 0.3 Aspartate Amino 26 Transf (AST/SGOT) Alanine 98 H Aminotransferase (ALT /SGPT) Alkaline Phosphatase 108 Total Protein 6.2 Albumin 3.1 L Globulin 3.10 Albumin/Globulin 1.00 Ratio Test 02/13/19 21:50 02/14/19 00:50 02/14/19 04:00 02/14/19 05:01 Bedside Glucose 190 193 166 White Blood Count 12.2 H Red Blood Count 4.33 Hemoglobin 12.8 Hematocrit 39.7 Mean Corpuscular 91.7 Volume Mean Corpuscular 29.6 Hemoglobin Mean Corpuscular 32.2 Hemoglobin Concent Red Cell Distribution 13.7 Width Platelet Count 354 Mean Platelet Volume 11.0 H Immature Granulocytes 0.400 % Neutrophils % 81.5 H Lymphocytes % 9.3 L Monocytes % 7.9 Eosinophils % 0.3 Basophils % 0.6 Nucleated Red Blood 0.0 Cells % Immature Granulocytes 0.050 H # Neutrophils # 10.0 H Lymphocytes # 1.1 Monocytes # 1.0 H Eosinophils # 0.0 Basophils # 0.1 Nucleated Red Blood 0.0 Cells # Sodium Level 144 Potassium Level 3.2 L Chloride Level 110 Carbon Dioxide Level 26 Anion Gap 8 Blood Urea Nitrogen 35 H Creatinine 1.04 H Est Glomerular Filtrat Rate mL/min Glucose Level 145 # Calcium Level 8.3 L Phosphorus Level 4.2 Magnesium Level 2.2 Medications Medication Current Medications Ondansetron HCl (Zofran Inj) 4 mg Q6H PRN IV NAUSEA AND/OR VOMITING; Start 02/12/19 at 07:30 Albuterol (Ventolin Hfa) 2 puff Q2H RESP THERAPY PRN INH SHORTNESS OF BREATH; Start 02/12/19 at 07:30 Ipratropium [place] (Atrovent Hfa) 2 puff Q2H RESP THERAPY PRN INH SHORTNESS OF BREATH; Start 02/12/19 at 07:30 Acetaminophen (Tylenol Liquid) 650 mg Q6H PRN PO PAIN LEVEL 1-3 OR FEVER; Start 02/12/19 at 07:30 Acetaminophen (Tylenol Supp) 650 mg Q4H PRN [place] PAIN LEVEL 1-3 OR FEVER; Start 02/12/19 at 07:30 Lorazepam (Ativan) 1 mg Q2H PRN IV ANXIETY; Start 02/12/19 at 07:30 Propofol 100 ml @ 2.748 mls/ hr PER PROTOCOL IV Last administered on 02/14/19at 05:00; Admin Dose 19.236 MLS/HR; Start 02/12/19 at 07:30 Aspirin (Aspirin) 81 mg DAILY PO Last administered on 02/13/19at 11:44; Admin Dose 81 MG; Start 02/12/19 at 09:00 Clopidogrel Bisulfate (plaVIX) 75 mg DAILY NGT Last administered on 02/13/19at 11:43; Admin Dose 75 MG; Start 02/12/19 at 09:00 Atorvastatin Calcium (Lipitor) 80 mg QHS NGT Last administered on 02/13/19at 21:45; Admin Dose 80 MG; Start 02/12/19 at 21:00 Diagnostic Test (Pha) (Accu-Chek) 1 ea 02 XX ; Start 02/13/19 at 02:00 Miscellaneous Information 1 ea NOTE XX ; Start 02/12/19 at 09:30 Glucose (Glutose) 15 gm Q15M PRN PO DECREASED GLUCOSE; Start 02/12/19 at 09:30 Glucose (Glutose) 22.5 gm Q15M PRN PO DECREASED GLUCOSE; Start 02/12/19 at 09:30 Dextrose (D50w Syringe) 25 ml Q15M PRN IV DECREASED GLUCOSE; Start 02/12/19 at 09:30 Dextrose (D50w Syringe) 50 ml Q15M PRN IV DECREASED GLUCOSE; Start 02/12/19 at 09:30 Glucagon (Glucagen) 1 mg Q15M PRN IM DECREASED GLUCOSE; Start 02/12/19 at 09:30 Glucose (Glutose) 15 gm Q15M PRN BUCCAL DECREASED GLUCOSE; Start 02/12/19 at 09:30 Insulin Aspart (Novolog Insulin Pen) NOVOLOG *MODERATE* ALGORI... Q4 SC Last administered on 02/14/19at 05:11; Admin Dose 4 UNIT; Start 02/12/19 at 23:07 Furosemide (Lasix) 40 mg DAILY IV Last administered on 02/13/19at 11:43; Admin Dose 40 MG; Start 02/13/19 at 09:00 Piperacillin Sod/ Tazobactam Sod 100 ml @ 200 mls/hr Q6 IVPB Last administered on 02/14/19at 06:22; Admin Dose 200 MLS/HR; Start 02/13/19 at 12:00 Famotidine (Pepcid Iv) 20 mg BID IV Last administered on 02/13/19at 21:45; Admin Dose 20 MG; Start 02/13/19 at 21:00 Fentanyl 100 ml @ 2.5 mls/hr TITRATE IV Last administered on 02/13/19at 16:36; Admin Dose 2.5 MLS/HR; Start 02/13/19 at 15:00 Insulin Glargine (Lantus) 40 units DAILY@2000 SC Last administered on 02/13/19at 20:07; Admin Dose 40 UNITS; Start 02/13/19 at 20:00 Potassium Chloride 100 ml @ 50 mls/hr Q2H IVPB ; Start 02/14/19 at 07:00; Stop 02/14/19 at 12:59 IRAM LEE Feb 14, 2019 08:20
--- NOTE | 2019-02-14 08:57 | CONS ---
Assessment/Plan Assessment/Plan Assessment/Plan (Daily) Chest x-ray from today showing significant improvement in bilateral edema. Ventilator settings; assist control of 16, tidal volume 500, PEEP of 5, 30% FiO2. Patient is currently on fentanyl 25 mics per hour, propofol 35 mics per kilogram per minute. Assessment and recommendations; 1. Patient admitted with respiratory failure due to CHF exacerbation and pulmonary edema with significant radiological improvement. Difficult to rule out some element of pneumonia. 2. History of severe peripheral vascular disease with history of left lower extremity amputation. 3. History of diabetes. 4. History of chronic steroid use. Hold further sedation to assess mental status. Once the patient is off sedation she will be evaluated for possible weaning trial from ventilator. Meanwhile continue current supportive care. 35 minutes of critical care time was spent evaluating the patient. Consultation Date/Type/Reason Admit Date/Time Feb 12, 2019 at 04:44 Initial Consult Date 02/13/19 Type of Consult Pulmonary/critical care Patient is a 73-year-old lady who was admitted to the hospital with complaints of shortness of breath. Patient was in respiratory failure and had to be intubated and then transferred to ICU. By the time I saw her, patient is orally intubated and sedated with propofol drip. Patient did not appear to be in any distress whatsoever. Per medical records, no CPR was done. Past medical history; 1. 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 2. Diabetes. 3. Peripheral vascular disease. With multiple right lower extremity surgeries as well. 4. CHF. 5. Chronic steroid use. Diagnosis is unclear. Medications; reviewed. Allergies; as outlined above. Family history, occupational history, social history are not available. Review of system; unable to be obtained. General exam; elderly female, orally intubated, sedated, currently in no distress. Date/Time of Note DATE: 02/14/19 TIME: 08:55 24 HR Interval Summary Free Text/Dictation Patient's condition is critical but stable. Has remained hemodynamically stable. General exam; elderly woman, orally intubated, sedated, currently in no distress. Exam/Review of Systems Exam Vitals Vital Signs Date Temp Pulse Resp B/P (MAP) Pulse Ox O2 O2 Flow FiO2 Time Delivery Rate 02/14/19 81 08:00 02/14/19 16 99 30 06:04 02/14/19 154/55 Mechanical 05:30 (88) Ventilator 02/14/19 97.8 04:00 02/12/19 60 05:01 Intake and Output 02/13/19 02/13/19 02/14/19 1515:00 23:00 07:00 IntakeIntake Total 292.40 ml 523.10 ml 601.11 ml OutputOutput Total 420 ml 470 ml 260 ml BalanceBalance -127.60 ml 53.10 ml 341.11 ml Exam H EENT exam; supple neck, positive JVD. No lymphadenopathy. Midline trachea. No thyromegaly. Orally intubated. Nasogastric tube in place. Chest exam; clear to auscultation. S1-S2 audible, no murmurs. Regular rhythm. Abdomen exam; soft, no organomegaly. Bowel sounds audible. Abdomen is mildly protuberant. Extremity exam; there is a well-healed left lower extremity amputation stump at the hip. Right lower extremity has multiple scars. Trace edema. IN [employer] exam; patient is sedated. Results Result Diagram: 02/14/190 02/14/19 0400 Results 24hrs Laboratory Tests Test 02/13/19 11:46 02/13/19 14:27 02/13/19 16:07 02/13/19 17:25 Bedside Glucose 247 H 250 H 162 White Blood Count 11.0 H Red Blood Count 4.48 Hemoglobin 13.2 Hematocrit 40.5 Mean Corpuscular 90.4 Volume Mean Corpuscular 29.5 Hemoglobin Mean Corpuscular 32.6 Hemoglobin Concent Red Cell Distribution 13.5 Width Platelet Count 353 Mean Platelet Volume 10.6 H Immature Granulocytes 0.400 % Neutrophils % 84.8 H Lymphocytes % 7.1 L Monocytes % 7.3 Eosinophils % 0.0 Basophils % 0.4 Nucleated Red Blood 0.0 Cells % Immature Granulocytes 0.040 H # Neutrophils # 9.4 H Lymphocytes # 0.8 Monocytes # 0.8 Eosinophils # 0.0 Basophils # 0.0 Nucleated Red Blood 0.0 Cells # Sodium Level 143 Potassium Level 3.4 L Chloride Level 108 Carbon Dioxide Level 26 Anion Gap 9 Blood Urea Nitrogen 32 #H Creatinine 0.98 Est Glomerular Filtrat Rate mL/min Glucose Level 197 # Calcium Level 8.7 Phosphorus Level 4.4 Magnesium Level 2.1 Total Bilirubin 0.3 Direct Bilirubin 0.00 Indirect Bilirubin 0.3 Aspartate Amino 26 Transf (AST/SGOT) Alanine 98 H Aminotransferase (ALT /SGPT) Alkaline Phosphatase 108 Total Protein 6.2 Albumin 3.1 L Globulin 3.10 Albumin/Globulin 1.00 Ratio Test 02/13/19 21:50 02/14/19 00:50 02/14/19 04:00 02/14/19 05:01 Bedside Glucose 190 193 166 White Blood Count 12.2 H Red Blood Count 4.33 Hemoglobin 12.8 Hematocrit 39.7 Mean Corpuscular 91.7 Volume Mean Corpuscular 29.6 Hemoglobin Mean Corpuscular 32.2 Hemoglobin Concent Red Cell Distribution 13.7 Width Platelet Count 354 Mean Platelet Volume 11.0 H Immature Granulocytes 0.400 % Neutrophils % 81.5 H Lymphocytes % 9.3 L Monocytes % 7.9 Eosinophils % 0.3 Basophils % 0.6 Nucleated Red Blood 0.0 Cells % Immature Granulocytes 0.050 H # Neutrophils # 10.0 H Lymphocytes # 1.1 Monocytes # 1.0 H Eosinophils # 0.0 Basophils # 0.1 Nucleated Red Blood 0.0 Cells # Sodium Level 144 Potassium Level 3.2 L Chloride Level 110 Carbon Dioxide Level 26 Anion Gap 8 Blood Urea Nitrogen 35 H Creatinine 1.04 H Est Glomerular Filtrat Rate mL/min Glucose Level 145 # Calcium Level 8.3 L Phosphorus Level 4.2 Magnesium Level 2.2 Medications Medication Current Medications Ondansetron HCl (Zofran Inj) 4 mg Q6H PRN IV NAUSEA AND/OR VOMITING; Start 02/12/19 at 07:30 Albuterol (Ventolin Hfa) 2 puff Q2H RESP THERAPY PRN INH SHORTNESS OF BREATH; Start 02/12/19 at 07:30 Ipratropium [place] (Atrovent Hfa) 2 puff Q2H RESP THERAPY PRN INH SHORTNESS OF BREATH; Start 02/12/19 at 07:30 Acetaminophen (Tylenol Liquid) 650 mg Q6H PRN PO PAIN LEVEL 1-3 OR FEVER; Start 02/12/19 at 07:30 Acetaminophen (Tylenol Supp) 650 mg Q4H PRN [place] PAIN LEVEL 1-3 OR FEVER; Start 02/12/19 at 07:30 Lorazepam (Ativan) 1 mg Q2H PRN IV ANXIETY; Start 02/12/19 at 07:30 Propofol 100 ml @ 2.748 mls/ hr PER PROTOCOL IV Last administered on 02/14/19at 05:00; Admin Dose 19.236 MLS/HR; Start 02/12/19 at 07:30 Aspirin (Aspirin) 81 mg DAILY PO Last administered on 02/13/19at 11:44; Admin Dose 81 MG; Start 02/12/19 at 09:00 Clopidogrel Bisulfate (plaVIX) 75 mg DAILY NGT Last administered on 02/13/19at 11:43; Admin Dose 75 MG; Start 02/12/19 at 09:00 Atorvastatin Calcium (Lipitor) 80 mg QHS NGT Last administered on 02/13/19at 21:45; Admin Dose 80 MG; Start 02/12/19 at 21:00 Diagnostic Test (Pha) (Accu-Chek) 1 ea 02 XX ; Start 02/13/19 at 02:00 Miscellaneous Information 1 ea NOTE XX ; Start 02/12/19 at 09:30 Glucose (Glutose) 15 gm Q15M PRN PO DECREASED GLUCOSE; Start 02/12/19 at 09:30 Glucose (Glutose) 22.5 gm Q15M PRN PO DECREASED GLUCOSE; Start 02/12/19 at 09:30 Dextrose (D50w Syringe) 25 ml Q15M PRN IV DECREASED GLUCOSE; Start 02/12/19 at 09:30 Dextrose (D50w Syringe) 50 ml Q15M PRN IV DECREASED GLUCOSE; Start 02/12/19 at 09:30 Glucagon (Glucagen) 1 mg Q15M PRN IM DECREASED GLUCOSE; Start 02/12/19 at 09:30 Glucose (Glutose) 15 gm Q15M PRN BUCCAL DECREASED GLUCOSE; Start 02/12/19 at 09:30 Insulin Aspart (Novolog Insulin Pen) NOVOLOG *MODERATE* ALGORI... Q4 SC Last administered on 02/14/19at 05:11; Admin Dose 4 UNIT; Start 02/12/19 at 23:07 Furosemide (Lasix) 40 mg DAILY IV Last administered on 02/13/19at 11:43; Admin Dose 40 MG; Start 02/13/19 at 09:00 Piperacillin Sod/ Tazobactam Sod 100 ml @ 200 mls/hr Q6 IVPB Last administered on 02/14/19at 06:22; Admin Dose 200 MLS/HR; Start 02/13/19 at 12:00 Famotidine (Pepcid Iv) 20 mg BID IV Last administered on 02/13/19at 21:45; Admin Dose 20 MG; Start 02/13/19 at 21:00 Fentanyl 100 ml @ 2.5 mls/hr TITRATE IV Last administered on 02/13/19at 16:36; Admin Dose 2.5 MLS/HR; Start 02/13/19 at 15:00 Insulin Glargine (Lantus) 40 units DAILY@2000 SC Last administered on 02/13/19at 20:07; Admin Dose 40 UNITS; Start 02/13/19 at 20:00 Potassium Chloride 100 ml @ 50 mls/hr Q2H IVPB ; Start 02/14/19 at 07:00; Stop 02/14/19 at 12:59 SANTHOSH GABRILE Feb 14, 2019 08:57
[2019-02-14] MEDS: POTASSIUM CHLORIDE 100 ML IVPB SCH ×3 (09:01→16:37)
[2019-02-14] MEDS: CLOPIDOGREL 75 MG TAB NGT SCH (09:08)
[2019-02-14] MEDS: ASPIRIN 81 MG TAB PO SCH (09:08)
[2019-02-14] MEDS: FAMOTIDINE 20 MG INJ IV SCH (09:08)
--- NOTE | 2019-02-14 09:24 | PN ---
Date/Time of Note Date/Time of Note DATE: 02/14/19 TIME: 09:21 Assessment/Plan VTE Prophylaxis Risk score (from Ns)>0 risk: 16 SCD applied (from Ns): No SCD contraindicated: other (PAD) Pharmacological prophylaxis: NA/contraindicated Pharm contraindication: anticoag not tolerated Lines/Catheters IV Catheter Type (from [facility]): PICC Line Central line still needed: Yes Urinary Cath still in place: Yes Reason Cath still needed: other (indicate) (intubated) Assessment/Plan Assessment/Plan 73 yo morbidly obese woman history of peripheral vascular disease, diabetes type II, CHF, likely COPD presents with acute respiratory failure #Acute respiratory failure - CTPA negative for PE - Likely CHF exacerbation - Gentle diuresis - Extubation per pulmonary. #Diabetes type II, insulin dependent - aspart sliding scale, glargine 20 qhs. #Peripheral vascular disease - Cont aspirin, plavix, statin - Monitor carefully for bleeding while on anticoag and dual antiplatelet. - Consulted podiatry for foot ulcer. #CHF - Blood pressure rising; resume home carvedilol. #History of DVT - LE duplex negative for DVT. - Not currently on anticoagulation. 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 GI: famotidine DVT: None Result Diagram: 02/14/19 0400 02/14/19 0400 Subjective 24 Hr Interval Summary Free Text/Dictation No acute overnight events. Off sedation this morning; awake. Exam/Review of Systems Exam Vitals Vital Signs Date Temp Pulse Resp B/P (MAP) Pulse Ox O2 O2 Flow FiO2 Time Delivery Rate 02/14/19 81 08:00 02/14/19 16 99 30 06:04 02/14/19 154/55 Mechanical 05:30 (88) Ventilator 02/14/19 97.8 04:00 02/12/19 60 05:01 Intake and Output 02/13/19 02/13/19 02/14/19 1414:59 22:59 06:59 IntakeIntake Total 299.30 ml 474.38 ml 543.08 ml OutputOutput Total 350 ml 540 ml 290 ml BalanceBalance -50.70 ml -65.62 ml 253.08 ml Exam Gen: Morbidly obese woman intubated and sedated in [facility]. HEENT: Moist mucous membranes. ET tube in place. Neck: Supple, no lymphadenopathy. Card: Regular rate and rhythm, no murmurs. Pulm: Mechanical breath sounds bilaterally. Minimal crackles. Abd: Soft, nontender, nondistended. Hypoactive bowel sounds. 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 R leg with well healed bypass scar below the knee. Skin: R lower leg erythema and induration, superficial tense blisters. Right great toe medial ulcer, clean based, no drainage, no surrounding erythema. Results Results 24hrs Laboratory Tests Test 02/13/19 11:46 02/13/19 14:27 02/13/19 16:07 02/13/19 17:25 Bedside Glucose 247 H 250 H 162 White Blood Count 11.0 H Red Blood Count 4.48 Hemoglobin 13.2 Hematocrit 40.5 Mean Corpuscular 90.4 Volume Mean Corpuscular 29.5 Hemoglobin Mean Corpuscular 32.6 Hemoglobin Concent Red Cell 13.5 Distribution Width Platelet Count 353 Mean Platelet Volume 10.6 H Immature 0.400 Granulocytes % Neutrophils % 84.8 H Lymphocytes % 7.1 L Monocytes % 7.3 Eosinophils % 0.0 Basophils % 0.4 Nucleated Red Blood 0.0 Cells % Immature 0.040 H Granulocytes # Neutrophils # 9.4 H Lymphocytes # 0.8 Monocytes # 0.8 Eosinophils # 0.0 Basophils # 0.0 Nucleated Red Blood 0.0 Cells # Sodium Level 143 Potassium Level 3.4 L Chloride Level 108 Carbon Dioxide Level 26 Anion Gap 9 Blood Urea Nitrogen 32 #H Creatinine 0.98 Est Glomerular Filtrat Rate mL/min Glucose Level 197 # Calcium Level 8.7 Phosphorus Level 4.4 Magnesium Level 2.1 Total Bilirubin 0.3 Direct Bilirubin 0.00 Indirect Bilirubin 0.3 Aspartate Amino 26 Transf (AST/SGOT) Alanine 98 H Aminotransferase (AL T/SGPT) Alkaline Phosphatase 108 Total Protein 6.2 Albumin 3.1 L Globulin 3.10 Albumin/Globulin 1.00 Ratio Test 02/13/19 21:50 02/14/19 00:50 02/14/19 04:00 02/14/19 05:01 Bedside Glucose 190 193 166 White Blood Count 12.2 H Red Blood Count 4.33 Hemoglobin 12.8 Hematocrit 39.7 Mean Corpuscular 91.7 Volume Mean Corpuscular 29.6 Hemoglobin Mean Corpuscular 32.2 Hemoglobin Concent Red Cell 13.7 Distribution Width Platelet Count 354 Mean Platelet Volume 11.0 H Immature 0.400 Granulocytes % Neutrophils % 81.5 H Lymphocytes % 9.3 L Monocytes % 7.9 Eosinophils % 0.3 Basophils % 0.6 Nucleated Red Blood 0.0 Cells % Immature 0.050 H Granulocytes # Neutrophils # 10.0 H Lymphocytes # 1.1 Monocytes # 1.0 H Eosinophils # 0.0 Basophils # 0.1 Nucleated Red Blood 0.0 Cells # Sodium Level 144 Potassium Level 3.2 L Chloride Level 110 Carbon Dioxide Level 26 Anion Gap 8 Blood Urea Nitrogen 35 H Creatinine 1.04 H Est Glomerular Filtrat Rate mL/min Glucose Level 145 # Calcium Level 8.3 L Phosphorus Level 4.2 Magnesium Level 2.2 Test 02/14/19 09:08 Bedside Glucose 180 Medications Medication Current Medications Ondansetron HCl (Zofran Inj) 4 mg Q6H PRN IV NAUSEA AND/OR VOMITING; Start 02/12/19 at 07:30 Albuterol (Ventolin Hfa) 2 puff Q2H RESP THERAPY PRN INH SHORTNESS OF BREATH; Start 02/12/19 at 07:30 Ipratropium [place] (Atrovent Hfa) 2 puff Q2H RESP THERAPY PRN INH SHORTNESS OF BREATH; Start 02/12/19 at 07:30 Acetaminophen (Tylenol Liquid) 650 mg Q6H PRN PO PAIN LEVEL 1-3 OR FEVER; Start 02/12/19 at 07:30 Acetaminophen (Tylenol Supp) 650 mg Q4H PRN MA PAIN LEVEL 1-3 OR FEVER; Start 02/12/19 at 07:30 Lorazepam (Ativan) 1 mg Q2H PRN IV ANXIETY; Start 02/12/19 at 07:30 Propofol 100 ml @ 2.748 mls/ hr PER PROTOCOL IV Last administered on 02/14/19at 05:00; Admin Dose 19.236 MLS/HR; Start 02/12/19 at 07:30 Aspirin (Aspirin) 81 mg DAILY PO Last administered on 02/13/19at 11:44; Admin Dose 81 MG; Start 02/12/19 at 09:00 Clopidogrel Bisulfate (plaVIX) 75 mg DAILY NGT Last administered on 02/13/19at 11:43; Admin Dose 75 MG; Start 02/12/19 at 09:00 Atorvastatin Calcium (Lipitor) 80 mg QHS NGT Last administered on 02/13/19at 21:45; Admin Dose 80 MG; Start 02/12/19 at 21:00 Diagnostic Test (Pha) (Accu-Chek) 1 ea 02 XX ; Start 02/13/19 at 02:00 Miscellaneous Information 1 ea NOTE XX ; Start 02/12/19 at 09:30 Glucose (Glutose) 15 gm Q15M PRN PO DECREASED GLUCOSE; Start 02/12/19 at 09:30 Glucose (Glutose) 22.5 gm Q15M PRN PO DECREASED GLUCOSE; Start 02/12/19 at 09:30 Dextrose (D50w Syringe) 25 ml Q15M PRN IV DECREASED GLUCOSE; Start 02/12/19 at 09:30 Dextrose (D50w Syringe) 50 ml Q15M PRN IV DECREASED GLUCOSE; Start 02/12/19 at 09:30 Glucagon (Glucagen) 1 mg Q15M PRN IM DECREASED GLUCOSE; Start 02/12/19 at 09:30 Glucose (Glutose) 15 gm Q15M PRN BUCCAL DECREASED GLUCOSE; Start 02/12/19 at 09:30 Insulin Aspart (Novolog Insulin Pen) NOVOLOG *MODERATE* ALGORI... Q4 SC Last administered on 02/14/19at 05:11; Admin Dose 4 UNIT; Start 02/12/19 at 23:07 Furosemide (Lasix) 40 mg DAILY IV Last administered on 02/13/19at 11:43; Admin Dose 40 MG; Start 02/13/19 at 09:00 Piperacillin Sod/ Tazobactam Sod 100 ml @ 200 mls/hr Q6 IVPB Last administered on 02/14/19at 06:22; Admin Dose 200 MLS/HR; Start 02/13/19 at 12:00 Famotidine (Pepcid Iv) 20 mg BID IV Last administered on 02/13/19at 21:45; Admin Dose 20 MG; Start 02/13/19 at 21:00 Fentanyl 100 ml @ 2.5 mls/hr TITRATE IV Last administered on 02/13/19at 16:36; Admin Dose 2.5 MLS/HR; Start 02/13/19 at 15:00 Insulin Glargine (Lantus) 40 units DAILY@2000 SC Last administered on 02/13/19at 20:07; Admin Dose 40 UNITS; Start 02/13/19 at 20:00 Potassium Chloride 100 ml @ 50 mls/hr Q2H IVPB ; Start 02/14/19 at 07:00; Stop 02/14/19 at 12:59 ANTON OZUNA MD Feb 14, 2019 09:24
[2019-02-14] MEDS: FUROSEMIDE 40 MG INJ IV SCH (12:12)
--- NOTE | 2019-02-14 18:52 | CONS ---
Assessment/Plan Assessment/Plan Assessment/Plan (Daily) Right hallux diabetic ulcer PAD CHF exacerbation Respiratory failure DM2 with hyperglycemia Hx of left lower extremity hip disarticulation Intubation with mechanical ventilator hx of HIT Plan Reviewed X-rays findings without signs of osteomyelitis. Awaiting MRI and wound culture reports. Reviewed vascular studies and patient would benefit from vascular surgery evaluation. The wound does not appear infected as it is dry, without erythema and no purulence appreciated. There is concern for osteomyelitis due to the chronicity of the wound. Patient presents as a comp licated vascular patient with extensive work done previously and complication of HIT. Once patient is medically stable patient, we discussed OR debridement and application of allograft to the right hallux wound site. Recommend daily wound dressing change with dakins irrigation, povidone topical and dry sterile dressings. Nursing instructions provided and recommend offloading of heel with pillows. Consultation Date/Type/Reason Admit Date/Time Feb 12, 2019 at 04:44 Initial Consult Date 02/13/19 Date/Time of Note DATE: 02/14/19 TIME: 18:51 24 HR Interval Summary Free Text/Dictation No acute events overnight. Exam/Review of Systems Exam Vitals Vital Signs Date Temp Pulse Resp B/P (MAP) Pulse Ox O2 O2 Flow FiO2 Time Delivery Rate 02/14/19 81 16 149/67 97 17:30 (94) 02/14/19 30 17:20 02/14/19 Mechanical 17:00 Ventilator 02/14/19 98.9 16:00 02/12/19 60 05:01 Intake and Output 02/13/19 02/13/19 02/14/19 1515:00 23:00 07:00 IntakeIntake Total 292.40 ml 523.10 ml 681.11 ml OutputOutput Total 420 ml 470 ml 290 ml BalanceBalance -127.60 ml 53.10 ml 391.11 ml Exam DP/PT non palpable Popliteal weakly palpable Unable to assess protective sensations Patient intubated Left lower extremity hip disarticulation appreciated Right hallux medial aspect 3 x 2 x 0.4cm fibrotic wound bed dry in nature, no purulence expressed, no proximal streaking X-ray Foot IMPRESSION: 1. No acute fractures or dislocations. 2. Mild vascular calcifications compatible with diabetic foot or atherosclerotic vascular disease Non invasive arterial studies IMPRESSION: Occluded right mid and distal SFA. Diffuse monophasic waveforms with markedly decreased velocities in the right proximal SFA, right popliteal and [id number] arteries. Follow-up CT angiogram is recommended. Results Result Diagram: 02/14/19 0400 02/14/19 0400 Results 24hrs Laboratory Tests Test 02/13/19 21:50 02/14/19 00:50 02/14/19 04:00 02/14/19 05:01 Bedside Glucose 190 193 166 White Blood Count 12.2 H Red Blood Count 4.33 Hemoglobin 12.8 Hematocrit 39.7 Mean Corpuscular 91.7 Volume Mean Corpuscular 29.6 Hemoglobin Mean Corpuscular 32.2 Hemoglobin Concent Red Cell 13.7 Distribution Width Platelet Count 354 Mean Platelet Volume 11.0 H Immature 0.400 Granulocytes % Neutrophils % 81.5 H Lymphocytes % 9.3 L Monocytes % 7.9 Eosinophils % 0.3 Basophils % 0.6 Nucleated Red Blood 0.0 Cells % Immature 0.050 H Granulocytes # Neutrophils # 10.0 H Lymphocytes # 1.1 Monocytes # 1.0 H Eosinophils # 0.0 Basophils # 0.1 Nucleated Red Blood 0.0 Cells # Sodium Level 144 Potassium Level 3.2 L Chloride Level 110 Carbon Dioxide Level 26 Anion Gap 8 Blood Urea Nitrogen 35 H Creatinine 1.04 H Est Glomerular Filtrat Rate mL/min Glucose Level 145 # Calcium Level 8.3 L Phosphorus Level 4.2 Magnesium Level 2.2 Test 02/14/19 09:08 02/14/19 12:30 02/14/19 17:07 Bedside Glucose 180 156 157 Medications Medication Current Medications Ondansetron HCl (Zofran Inj) 4 mg Q6H PRN IV NAUSEA AND/OR VOMITING; Start 02/12/19 at 07:30 Albuterol (Ventolin Hfa) 2 puff Q2H RESP THERAPY PRN INH SHORTNESS OF BREATH; Start 02/12/19 at 07:30 Ipratropium [place] (Atrovent Hfa) 2 puff Q2H RESP THERAPY PRN INH SHORTNESS OF BREATH; Start 02/12/19 at 07:30 Acetaminophen (Tylenol Liquid) 650 mg Q6H PRN PO PAIN LEVEL 1-3 OR FEVER; Start 02/12/19 at 07:30 Acetaminophen (Tylenol Supp) 650 mg Q4H PRN AL PAIN LEVEL 1-3 OR FEVER; Start 02/12/19 at 07:30 Lorazepam (Ativan) 1 mg Q2H PRN IV ANXIETY; Start 02/12/19 at 07:30 Propofol 100 ml @ 2.748 mls/ hr PER PROTOCOL IV Last administered on 02/14/19at 18:25; Admin Dose 21.984 MLS/HR; Start 02/12/19 at 07:30 Aspirin (Aspirin) 81 mg DAILY PO Last administered on 02/14/19at 09:08; Admin Dose 81 MG; Start 02/12/19 at 09:00 Clopidogrel Bisulfate (plaVIX) 75 mg DAILY NGT Last administered on 02/14/19at 09:08; Admin Dose 75 MG; Start 02/12/19 at 09:00 Atorvastatin Calcium (Lipitor) 80 mg QHS NGT Last administered on 02/13/19at 21:45; Admin Dose 80 MG; Start 02/12/19 at 21:00 Diagnostic Test (Pha) (Accu-Chek) 1 ea 02 XX ; Start 02/13/19 at 02:00 Miscellaneous Information 1 ea NOTE XX ; Start 02/12/19 at 09:30 Glucose (Glutose) 15 gm Q15M PRN PO DECREASED GLUCOSE; Start 02/12/19 at 09:30 Glucose (Glutose) 22.5 gm Q15M PRN PO DECREASED GLUCOSE; Start 02/12/19 at 09:30 Dextrose (D50w Syringe) 25 ml Q15M PRN IV DECREASED GLUCOSE; Start 02/12/19 at 09:30 Dextrose (D50w Syringe) 50 ml Q15M PRN IV DECREASED GLUCOSE; Start 02/12/19 at 09:30 Glucagon (Glucagen) 1 mg Q15M PRN IM DECREASED GLUCOSE; Start 02/12/19 at 09:30 Glucose (Glutose) 15 gm Q15M PRN BUCCAL DECREASED GLUCOSE; Start 02/12/19 at 09:30 Insulin Aspart (Novolog Insulin Pen) NOVOLOG *MODERATE* ALGORI... Q4 SC Last administered on 02/14/19at 17:15; Admin Dose 2 UNIT; Start 02/12/19 at 23:07 Furosemide (Lasix) 40 mg DAILY IV Last administered on 02/14/19at 12:12; Admin Dose 40 MG; Start 02/13/19 at 09:00 Piperacillin Sod/ Tazobactam Sod 100 ml @ 200 mls/hr Q6 IVPB Last administered on 02/14/19at 17:08; Admin Dose 200 MLS/HR; Start 02/13/19 at 12:00 Fentanyl 100 ml @ 2.5 mls/hr TITRATE IV Last administered on 02/13/19at 16:36; Admin Dose 2.5 MLS/HR; Start 02/13/19 at 15:00 Insulin Glargine (Lantus) 40 units DAILY@2000 SC Last administered on 02/13/19at 20:07; Admin Dose 40 UNITS; Start 02/13/19 at 20:00 Carvedilol (Coreg) 25 mg BID PO ; Start 02/14/19 at 21:00 Sodium Hypochlorite (Dakins Diluted (40)) 1 applic DAILY TP ; Start 02/15/19 at 09:00 Famotidine (Pepcid) 20 mg Q12 NGT ; Start 02/14/19 at 21:00 Povidone Iodine (Povidone-Iodine) 1 applic DAILY TOP ; Start 02/14/19 at 20:00 NASIR MILLER DPM Feb 14, 2019 18:51
[2019-02-14] MEDS: ATORVASTATIN 80 MG TAB NGT SCH (20:24)
[2019-02-14] MEDS: FAMOTIDINE 20 MG TAB NGT SCH (20:24)
[2019-02-14] MEDS: POVIDONE IODINE 10% 28.4 GM OINT TOP SCH (20:25)
[2019-02-14] MEDS: INSULIN GLARGINE [LANTus] (100 UNITS/ML) SYG SC SCH (20:27)
[2019-02-15] VITALS (40 sets, daily range): BP systolic 96–160; BP diastolic 50–78; PULSE 73–83; RESP 16–30
[2019-02-15] MEDS: PIPER-TAZO 3.375 GM IV (PMX) 100 ML IVPB SCH ×4 (00:31→17:12)
[2019-02-15] MEDS: FENTAnyl (DRIP) 1000 mcg/100mL 100 ML IV SCH (00:39)
[2019-02-15] MEDS: INSULIN ASPART [NOVOLOG] 3 ML PEN SC SCH ×6 (00:39→20:30)
[2019-02-15] MEDS: ACCU-CHEK XX SCH (01:30)
[2019-02-15] MEDS: PROPOFOL 100 ML IV SCH ×4 (02:37→21:38)
--- NOTE | 2019-02-15 08:51 | CONS ---
DATE OF ADMISSION: 02/12/2019 DATE OF CONSULTATION: 02/15/2019 REASON FOR CONSULTATION: Right foot ulcer. HISTORY OF PRESENT ILLNESS: This is a 73-year-old diabetic, morbidly obese woman with a long history of peripheral arterial disease. She has had bilateral fem below knee bypasses. I believe they were done at [facility]. She had a bad postop course and now has a left high above knee or hip disarticulation . It is a very high amputation on the left. On the right she has a first toe ulcer on the medial as pect of the first toe and the right leg bypass is occluded. She had recent arterial studies that annel wed monophasic flow throughout the entire right lower extremity. The SFA and popliteal on the right are occluded. I was asked by Dr. Castro to evaluate her from a vascular standpoint. She is curre ntly intubated and sedated in the ICU with respiratory failure. She has a history of HIT which devel oped after her bypasses. She also SUPPOSEDLY HAS A DYE ALLERGY TO CONTRAST. She had a CTA of the est that showed no PE so the etiology of her pulmonary failure is not entirely clear. She got dye an d didn't seem to have any reaction from the dye. Creatinine is normal at baseline. PAST MEDICAL HISTORY: Significant for CHF, diabetes, morbid obesity, peripheral arterial disease, CO PD. MEDICATIONS: Consist of: 1. Coreg. 2. Pepcid. 3. Betadine which is being applied to the right foot ulcer. 4. Lantus. 5. Zosyn. 6. Lasix. 7. Insulin. 8. NovoLog. 9. Lipitor. 10. Aspirin. 11. Plavix. 12. Zofran. 13. She is currently sedated with Propofol. ALLERGIES: SHE IS ALLERGIC TO HEPARIN AND APPARENTLY WITH A HISTORY OF HIT AND IODINE DYE, ALTHOUGH SHE GOT IODINE FOR THE CTA AND DID NOT APPEAR TO HAVE ANY REACTION TO IT. SOCIAL HISTORY: Prior to this admission she is a current every day smoker for many years. She does not drink or use any illicit drugs. FAMILY HISTORY: Significant for vascular disease. REVIEW OF SYSTEMS: Currently unobtainable. She is intubated and sedated on the ventilator. PHYSICAL EXAMINATION GENERAL: She is an elderly, , I believe she is an [place] woman. She is intubated and sed ated. She is hemodynamically stable, but recently heavily sedated. VITAL SIGNS: Blood pressure is 116/56, heart rate is 75, respiratory rate is 16 on the vent. She is 94% sat on the ventilator. She has been afebrile, 2+ radial and brachial pulses bilaterally. LUNGS: Rhonchorous. ABDOMEN: Morbidly obese. EXTREMITIES: I feel femoral pulses on either side. On the left, she has a very high amputation. It is probably a hip disarticulation. You can see just at the scar she has had multiple surgeries to g et this to close, probably became infected at some point and it looks like it closed with secondary i ntention on the right. She has got a scar in the groin and down the leg and in the left and then the right medial calf. I don't feel any pulses in the right leg even from the femoral down. The right tracie t is cool, but not mottled. She has signs of chronic arterial insufficiency in the right medial firs t toe. There is an ulcer about the size of a quarter. It is covered with a dry eschar and betadine i s being applied to it. I don't see any heel wounds and there are no other wounds on the toes. Again , I reviewed her arterial study and the right leg bypass is occluded, the SFA is occluded and everyth ing else is monophasic. She has some diffuse disease throughout the right lower extremity suggesting iliac lesion as well as SFA occlusion on the left. With this high amputation she must have had an i liac occlusion, possibly from the HIT. Venous duplex was negative when she came in. CT angio of the chest showed no pulmonary embolus. Surprisingly, her kidney function is relatively normal. She has a creatinine of 1.1, white count is 11, platelet count is normal. Other labs appear fairly normal. IMPRESSION: Critically ill woman with respiratory failure, multiple medical problems. She is morbid ly obese. She has a history of HIT. She has a long history of peripheral arterial disease. She had a very high left above knee amputation. She has a right foot wound that is dry and clean. I don't see any signs of infection. She had a failed bypass there on the right. At this point, I would gerri t the foot wound palliatively with Betadine. She doesn't have adequate circulation to heal an amputa tion of the toe. With her multiple medical problems and her history of complications from vascular s urgery and having failed already a right lower extremity bypass surgery, I don't think a revasculariz ation is an option for her. E are going to just continue palliative wound care. If she recovers from this event and the wound becomes infected or worsens in the future, would consider doing a below kne e amputation. We discussed it with Dr. Castro. Dictated By: ANTON QUIROZ/ELIZA Conf#: [id number] DID#: [id number] CC: SANTHOSH GABRIEL MD; WYATT DAVIS MD; IRAM LEE MD; Diego Castro; ANTON OZUNA MD;*End CC*
--- NOTE | 2019-02-15 09:03 | CONS ---
Assessment/Plan Assessment/Plan Assessment/Plan (Daily) Ventilator setting; assist control of 16, tidal volume 500, PEEP of 5, 30% FiO2. Patient is currently on fentanyl 25 mics per hour, propofol 40 mics per kilogram per minute. Chest x-ray showing continued improvement in pulmonary edema. Assessment and recommendations; 1. Patient admitted with respiratory failure due to CHF exacerbation and pulmonary edema with significant radiological improvement. 2. Underlying cardiomyopathy. 3. Severe peripheral vascular disease. 4. Hypertension. 5. Diabetes. Hold further sedation . Once the patient is off sedation she will be evaluated for possible weaning from ventilator. Based upon clinical presentation and rapid radiological resolution of bilateral infiltrates, pneumonia is unlikely and the findings are consistent with underlying pulmonary edema as the primary pathology. Consider stopping Zosyn. I did have a detailed discussion patient's daughter at bedside and answered all her questions. 35 minutes of critical care time was spent evaluating the patient. Consultation Date/Type/Reason Admit Date/Time Feb 12, 2019 at 04:44 Initial Consult Date 02/13/19 Type of Consult Pulmonary/critical care Patient is a 73-year-old lady who was admitted to the hospital with complaints of shortness of breath. Patient was in respiratory failure and had to be intubated and then transferred to ICU. By the time I saw her, patient is orally intubated and sedated with propofol drip. Patient did not appear to be in any distress whatsoever. Per medical records, no CPR was done. Past medical history; 1. 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 2. Diabetes. 3. Peripheral vascular disease. With multiple right lower extremity surgeries as well. 4. CHF. 5. Chronic steroid use. Diagnosis is unclear. Medications; reviewed. Allergies; as outlined above. Family history, occupational history, social history are not available. Review of system; unable to be obtained. General exam; elderly female, orally intubated, sedated, currently in no distress. Date/Time of Note DATE: 02/15/19 TIME: 09:00 24 HR Interval Summary Free Text/Dictation Patient's condition is critical. Patient failed a weaning trial from ventilator yesterday. Patient however has remained hemodynamically stable. General exam; elderly woman, orally intubated, sedated. Currently no distress. Exam/Review of Systems Exam Vitals Vital Signs Date Temp Pulse Resp B/P (MAP) Pulse Ox O2 O2 Flow FiO2 Time Delivery Rate 02/15/19 99.1 74 16 145/63 95 Mechanical 08:00 (90) Ventilator 02/15/19 30 03:25 02/12/19 60 05:01 Intake and Output 02/14/19 02/14/19 02/15/19 1515:00 23:00 07:00 IntakeIntake Total 626.2 ml 813.42 ml 661.5 ml OutputOutput Total 470 ml 440 ml 231 ml BalanceBalance 156.2 ml 373.42 ml 430.5 ml Exam H EENT exam; supple neck, positive JVD. No lymphadenopathy. Midline trachea. No thyromegaly. Patient is edentulous. Orally intubated. Pupils are small bilaterally. No neck masses. Chest exam; diminished but clear breath sounds. S1-S2 audible, no murmurs. Regular rhythm. Abdomen exam; soft, protuberant. No organomegaly. Bowel sounds are audible. Extremity exam; left lower extremity amputation at hip. Multiple scars right lower extremity. No peripheral edema. MILIEU MANAGER exam; patient is sedated. Results Result Diagram: 02/15/19 0430 02/15/19 0430 Results 24hrs Laboratory Tests Test 02/14/19 09:08 02/14/19 12:30 02/14/19 17:07 02/14/19 20:23 Bedside Glucose 180 156 157 190 Test 02/15/19 00:36 02/15/19 04:30 02/15/19 05:32 Bedside Glucose 310 H 235 H White Blood Count 11.4 H Red Blood Count 4.34 Hemoglobin 12.8 Hematocrit 40.2 Mean Corpuscular 92.6 Volume Mean Corpuscular 29.5 Hemoglobin Mean Corpuscular 31.8 L Hemoglobin Concent Red Cell 14.0 Distribution Width Platelet Count 298 Mean Platelet Volume 11.2 H Immature 0.500 H Granulocytes % Neutrophils % 82.2 H Lymphocytes % 8.0 L Monocytes % 7.7 Eosinophils % 1.0 Basophils % 0.6 Nucleated Red Blood 0.0 Cells % Immature 0.060 H Granulocytes # Neutrophils # 9.3 H Lymphocytes # 0.9 Monocytes # 0.9 Eosinophils # 0.1 Basophils # 0.1 Nucleated Red Blood 0.0 Cells # Sodium Level 142 Potassium Level 3.7 Chloride Level 107 Carbon Dioxide Level 27 Anion Gap 8 Blood Urea Nitrogen 38 H Creatinine 1.13 H Est Glomerular Filtrat Rate mL/min Glucose Level 298 #H Calcium Level 8.1 L Phosphorus Level 4.7 Magnesium Level 2.2 Medications Medication Current Medications Ondansetron HCl (Zofran Inj) 4 mg Q6H PRN IV NAUSEA AND/OR VOMITING; Start 02/12/19 at 07:30 Albuterol (Ventolin Hfa) 2 puff Q2H RESP THERAPY PRN INH SHORTNESS OF BREATH; Start 02/12/19 at 07:30 Ipratropium [place] (Atrovent Hfa) 2 puff Q2H RESP THERAPY PRN INH SHORTNESS OF BREATH; Start 02/12/19 at 07:30 Acetaminophen (Tylenol Liquid) 650 mg Q6H PRN PO PAIN LEVEL 1-3 OR FEVER; Start 02/12/19 at 07:30 Acetaminophen (Tylenol Supp) 650 mg Q4H PRN [place] PAIN LEVEL 1-3 OR FEVER; Start 02/12/19 at 07:30 Lorazepam (Ativan) 1 mg Q2H PRN IV ANXIETY; Start 02/12/19 at 07:30 Propofol 100 ml @ 2.748 mls/ hr PER PROTOCOL IV Last administered on 02/15/19at 08:13; Admin Dose 21.984 MLS/HR; Start 02/12/19 at 07:30 Aspirin (Aspirin) 81 mg DAILY PO Last administered on 02/14/19at 09:08; Admin Dose 81 MG; Start 02/12/19 at 09:00 Clopidogrel Bisulfate (plaVIX) 75 mg DAILY NGT Last administered on 02/14/19at 09:08; Admin Dose 75 MG; Start 02/12/19 at 09:00 Atorvastatin Calcium (Lipitor) 80 mg QHS NGT Last administered on 02/14/19at 20:24; Admin Dose 80 MG; Start 02/12/19 at 21:00 Diagnostic Test (Pha) (Accu-Chek) 1 ea 02 XX ; Start 02/13/19 at 02:00 Miscellaneous Information 1 ea NOTE XX ; Start 02/12/19 at 09:30 Glucose (Glutose) 15 gm Q15M PRN PO DECREASED GLUCOSE; Start 02/12/19 at 09:30 Glucose (Glutose) 22.5 gm Q15M PRN PO DECREASED GLUCOSE; Start 02/12/19 at 09:30 Dextrose (D50w Syringe) 25 ml Q15M PRN IV DECREASED GLUCOSE; Start 02/12/19 at 09:30 Dextrose (D50w Syringe) 50 ml Q15M PRN IV DECREASED GLUCOSE; Start 02/12/19 at 09:30 Glucagon (Glucagen) 1 mg Q15M PRN IM DECREASED GLUCOSE; Start 02/12/19 at 09:30 Glucose (Glutose) 15 gm Q15M PRN BUCCAL DECREASED GLUCOSE; Start 02/12/19 at 09:30 Insulin Aspart (Novolog Insulin Pen) NOVOLOG *MODERATE* ALGORI... Q4 SC Last administered on 02/15/19 05:35; Admin Dose 6 UNIT; Start 02/12/19 at 23:07 Furosemide (Lasix) 40 mg DAILY IV Last administered on 02/14/19 12:12; Admin Dose 40 MG; Start 02/13/19 at 09:00 Piperacillin Sod/ Tazobactam Sod 100 ml @ 200 mls/hr Q6 IVPB Last administered on 02/15/19 05:32; Admin Dose 200 MLS/HR; Start 02/13/19 at 12:00 Fentanyl 100 ml @ 2.5 mls/hr TITRATE IV Last administered on 02/15/19 00:39; Admin Dose 2.5 MLS/HR; Start 02/13/19 at 15:00 Insulin Glargine (Lantus) 40 units DAILY@2000 SC Last administered on 02/14/19 20:27; Admin Dose 40 UNITS; Start 02/13/19 at 20:00 Carvedilol (Coreg) 25 mg BID PO Last administered on 02/14/19 20:24; Admin Dose 25 MG; Start 02/14/19 at 21:00 Sodium Hypochlorite (Dakins Diluted (40)) 1 applic DAILY TP ; Start 02/15/19 at 09:00 Famotidine (Pepcid) 20 mg Q12 NGT Last administered on 02/14/19 20:24; Admin Dose 20 MG; Start 02/14/19 at 21:00 Povidone Iodine (Povidone-Iodine) 1 applic DAILY TOP Last administered on 02/14/19 20:25; Admin Dose 1 APPLIC; Start 02/14/19 at 20:00 SANTHOSH GABRIEL Feb 15, 2019 09:03
[2019-02-15] MEDS: CLOPIDOGREL 75 MG TAB NGT SCH (09:26)
[2019-02-15] MEDS: ASPIRIN 81 MG TAB PO SCH (09:26)
[2019-02-15] MEDS: FUROSEMIDE 40 MG INJ IV SCH ×2 (09:26→20:26)
[2019-02-15] MEDS: FAMOTIDINE 20 MG TAB NGT SCH ×2 (09:26→20:25)
[2019-02-15] MEDS: POVIDONE IODINE 10% 28.4 GM OINT TOP SCH (09:27)
[2019-02-15] MEDS: DAKINS 0.0125%(1/40) 473 ML SOLUTION TP SCH (09:28)
--- NOTE | 2019-02-15 10:20 | PN ---
Date/Time of Note Date/Time of Note DATE: 02/15/19 TIME: 10:12 Assessment/Plan VTE Prophylaxis Risk score (from Ns)>0 risk: 15 SCD applied (from Ns): No SCD contraindicated: other (no) Pharmacological prophylaxis: NA/contraindicated Pharm contraindication: anticoag not tolerated Lines/Catheters IV [facility] ([facility]): PICC Line Central line still needed: Yes Urinary Cath still in place: Yes Reason Cath still needed: other (indicate) (intubated) Assessment/Plan Assessment/Plan 73 yo morbidly obese woman history of peripheral vascular disease, diabetes type II, CHF, likely COPD presents with acute respiratory failure #Acute respiratory failure - CTPA negative for PE - Likely CHF exacerbation - Gentle diuresis - Extubation per pulmonary. #VICTOR M - Rising Cr associated with diuresis - May be cardiorenal. Still has pulmonary edema on CXR. #Diabetes type II, insulin dependent - aspart sliding scale, glargine 20 qhs. #Peripheral vascular disease - Cont aspirin, plavix, statin - Dr Castro and Evangelista saw foot ulcer. No further interventions, wait for it to heal. #CHF - resume home carvedilol. #History of DVT - LE duplex negative for DVT. - Not currently on anticoagulation. 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 GI: famotidine DVT: None Result Diagram: 02/15/1942902/15/19429 Subjective 24 Hr Interval Summary Free Text/Dictation Failed CPAP trial yesterday; grew tachypneic after a few minutes. CPAP trial again today. Exam/Review of Systems Exam Vitals Vital Signs Date Temp Pulse Resp B/P (MAP) Pulse Ox O2 O2 Flow FiO2 Time Delivery Rate 02/15/19 73 08:00 02/15/19 99.1 16 145/63 95 Mechanical 08:00 (90) Ventilator 02/15/19 30 03:25 02/12/19 60 05:01 Intake and Output 02/14/19 02/14/19 02/15/19 1414:59 22:59 06:59 IntakeIntake Total 772.95 ml 803.92 ml 701.5 ml OutputOutput Total 400 ml 507 ml 264 ml BalanceBalance 372.95 ml 296.92 ml 437.5 ml Exam Gen: Morbidly obese woman intubated and sedated in [facility]. HEENT: Moist mucous membranes. ET tube in place. Neck: Supple, no lymphadenopathy. Card: Regular rate and rhythm, no murmurs. Pulm: Mechanical breath sounds bilaterally. No crackles. Abd: Soft, nontender, nondistended. Hypoactive bowel sounds. 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 R leg with well healed bypass scar below the knee. Skin: R lower leg erythema has resolved. Right great toe medial ulcer, clean based, no drainage, no surrounding erythema. Results Results 24hrs Laboratory Tests Test 02/14/19 12:30 02/14/19 17:07 02/14/19 20:23 02/15/19 00:36 Bedside Glucose 156 157 190 310 H Test 02/15/19 04:30 02/15/19 05:32 02/15/19 09:25 White Blood Count 11.4 H Red Blood Count 4.34 Hemoglobin 12.8 Hematocrit 40.2 Mean Corpuscular 92.6 Volume Mean Corpuscular 29.5 Hemoglobin Mean Corpuscular 31.8 L Hemoglobin Concent Red Cell 14.0 Distribution Width Platelet Count 298 Mean Platelet Volume 11.2 H Immature 0.500 H Granulocytes % Neutrophils % 82.2 H Lymphocytes % 8.0 L Monocytes % 7.7 Eosinophils % 1.0 Basophils % 0.6 Nucleated Red Blood 0.0 Cells % Immature 0.060 H Granulocytes # Neutrophils # 9.3 H Lymphocytes # 0.9 Monocytes # 0.9 Eosinophils # 0.1 Basophils # 0.1 Nucleated Red Blood 0.0 Cells # Sodium Level 142 Potassium Level 3.7 Chloride Level 107 Carbon Dioxide Level 27 Anion Gap 8 Blood Urea Nitrogen 38 H Creatinine 1.13 H Est Glomerular Filtrat Rate mL/min Glucose Level 298 #H Calcium Level 8.1 L Phosphorus Level 4.7 Magnesium Level 2.2 Bedside Glucose 235 H 181 Medications Medication Current Medications Ondansetron HCl (Zofran Inj) 4 mg Q6H PRN IV NAUSEA AND/OR VOMITING; Start 02/12/19 at 07:30 Albuterol (Ventolin Hfa) 2 puff Q2H RESP THERAPY PRN INH SHORTNESS OF BREATH; Start 02/12/19 at 07:30 Ipratropium [place] (Atrovent Hfa) 2 puff Q2H RESP THERAPY PRN INH SHORTNESS OF BREATH; Start 02/12/19 at 07:30 Acetaminophen (Tylenol Liquid) 650 mg Q6H PRN PO PAIN LEVEL 1-3 OR FEVER; Start 02/12/19 at 07:30 Acetaminophen (Tylenol Supp) 650 mg Q4H PRN [place] PAIN LEVEL 1-3 OR FEVER; Start 02/12/19 at 07:30 Lorazepam (Ativan) 1 mg Q2H PRN IV ANXIETY; Start 02/12/19 at 07:30 Propofol 100 ml @ 2.748 mls/ hr PER PROTOCOL IV Last administered on 02/15/19at 08:13; Admin Dose 21.984 MLS/HR; Start 02/12/19 at 07:30 Aspirin (Aspirin) 81 mg DAILY PO Last administered on 02/15/19at 09:26; Admin Dose 81 MG; Start 02/12/19 at 09:00 Clopidogrel Bisulfate (plaVIX) 75 mg DAILY NGT Last administered on 02/15/19at 09:26; Admin Dose 75 MG; Start 02/12/19 at 09:00 Atorvastatin Calcium (Lipitor) 80 mg QHS NGT Last administered on 02/14/19at 20: 24; Admin Dose 80 MG; Start 02/12/19 at 21:00 Diagnostic Test (Pha) (Accu-Chek) 1 ea 02 XX ; Start 02/13/19 at 02:00 Miscellaneous Information 1 ea NOTE XX ; Start 02/12/19 at 09:30 Glucose (Glutose) 15 gm Q15M PRN PO DECREASED GLUCOSE; Start 02/12/19 at 09:30 Glucose (Glutose) 22.5 gm Q15M PRN PO DECREASED GLUCOSE; Start 02/12/19 at 09:30 Dextrose (D50w Syringe) 25 ml Q15M PRN IV DECREASED GLUCOSE; Start 02/12/19 at 09:30 Dextrose (D50w Syringe) 50 ml Q15M PRN IV DECREASED GLUCOSE; Start 02/12/19 at 09:30 Glucagon (Glucagen) 1 mg Q15M PRN IM DECREASED GLUCOSE; Start 02/12/19 at 09:30 Glucose (Glutose) 15 gm Q15M PRN BUCCAL DECREASED GLUCOSE; Start 02/12/19 at 09:30 Insulin Aspart (Novolog Insulin Pen) NOVOLOG *MODERATE* ALGORI... Q4 SC Last administered on 7/11/19at 09:37; Admin Dose 4 UNIT; Start 02/12/19 at 23:07 Furosemide (Lasix) 40 mg DAILY IV Last administered on 02/15/19 09:26; Admin Dose 40 MG; Start 02/13/19 at 09:00 Piperacillin Sod/ Tazobactam Sod 100 ml @ 200 mls/hr Q6 IVPB Last administered on 02/15/19 05:32; Admin Dose 200 MLS/HR; Start 02/13/19 at 12:00 Fentanyl 100 ml @ 2.5 mls/hr TITRATE IV Last administered on 02/15/19 00:39; Admin Dose 2.5 MLS/HR; Start 02/13/19 at 15:00 Insulin Glargine (Lantus) 40 units DAILY@2000 SC Last administered on 02/14/19 20:27; Admin Dose 40 UNITS; Start 02/13/19 at 20:00 Carvedilol (Coreg) 25 mg BID PO Last administered on 02/15/19 09:27; Admin Dose 25 MG; Start 02/14/19 at 21:00 Sodium Hypochlorite (Dakins Diluted ()) 1 applic DAILY TP Last administered on 02/15/19 09:28; Admin Dose 1 APPLIC; Start 02/15/19 at 09:00 Famotidine (Pepcid) 20 mg Q12 NGT Last administered on 02/15/19 09:26; Admin Dose 20 MG; Start 02/14/19 at 21:00 Povidone Iodine (Povidone-Iodine) 1 applic DAILY TOP Last administered on 02/15/19 09:27; Admin Dose 1 APPLIC; Start 02/14/19 at 20:00 ANTON OZUNA MD Feb 15, 2019 10:20
[2019-02-15] MEDS ORDERED: FUROSEMIDE 40 MG INJ IV SCH (14:00)
[2019-02-15] MEDS: SENNA TAB NGT SCH (20:26)
[2019-02-15] MEDS: ATORVASTATIN 80 MG TAB NGT SCH (20:26)
[2019-02-15] MEDS: BALSAM PERU/CASTOR OIL 60 GM TUBE TOP SCH (20:27)
[2019-02-15] MEDS: INSULIN GLARGINE [LANTus] (100 UNITS/ML) SYG SC SCH (20:30)
--- NOTE | 2019-02-15 22:27 | CONS ---
Assessment/Plan Assessment/Plan Assessment/Plan (Daily) Right hallux diabetic ulcer right foot early osteomyelitis PAD CHF exacerbation Respiratory failure DM2 with hyperglycemia Hx of left lower extremity hip disarticulation Intubation with mechanical ventilator hx of HIT Plan MRI showing Reactive osteitis of the first proximal and distal phalanges with focal early osteomyelitis involving the medial base of the first distal phalanx at medial head of the first proximal phalanx.and wound culture showing staph aureus. Appreciate vascular surgery input. Patient does not have adequate blood supply to warrant surgical debridement at this time. No plans for surgical intervention at this time given patient's status and extensive vascular history. Continue with local wound care and palliative care. The wound does not appear infected as it is dry, without erythema and no purulence appreciated. Patient presents as a complicated vascular patient with extensive work done previously and complication of HIT. Recommend daily wound dressing change with dakins irrigation, povidone topical and dry sterile dressings. Nursing instructions provided and recommend offloading of heel with pillows. Consultation Date/Type/Reason Admit Date/Time Feb 12, 2019 at 04:44 Initial Consult Date 02/13/19 Date/Time of Note DATE: 02/15/19 TIME: 22:26 24 HR Interval Summary Free Text/Dictation No acute events overnight, patient continues to be intubated. Exam/Review of Systems Exam Vitals Vital Signs Date Temp Pulse Resp B/P (MAP) Pulse Ox O2 O2 Flow FiO2 Time Delivery Rate 02/15/19 81 16 96 30 21:28 02/15/19 110/55 Mechanical 18:00 (73) Ventilator 02/15/19 99.7 16:00 02/12/19 60 05:01 Intake and Output 02/14/19 02/14/19 02/15/19 1515:00 23:00 07:00 IntakeIntake Total 626.2 ml 813.42 ml 661.5 ml OutputOutput Total 470 ml 440 ml 231 ml BalanceBalance 156.2 ml 373.42 ml 430.5 ml Exam DP/PT non palpable Popliteal weakly palpable Unable to assess protective sensations Patient intubated Left lower extremity hip disarticulation appreciated Right hallux medial aspect 3 x 2 x 0.4cm fibrotic wound bed dry in nature, no purulence expressed, no proximal streaking X-ray Foot IMPRESSION: 1. No acute fractures or dislocations. 2. Mild vascular calcifications compatible with diabetic foot or atherosclerotic vascular disease Non invasive arterial studies IMPRESSION: Occluded right mid and distal SFA. Diffuse monophasic waveforms with markedly decreased velocities in the right proximal SFA, right popliteal and [id number] arteries. Follow-up CT angiogram is recommended. Results Result Diagram: 02/15/19 0430 02/15/19 0430 Results 24hrs Laboratory Tests Test 02/15/19 00:36 02/15/19 04:30 02/15/19 05:32 02/15/19 09:25 Bedside Glucose 310 H 235 H 181 White Blood Count 11.4 H Red Blood Count 4.34 Hemoglobin 12.8 Hematocrit 40.2 Mean Corpuscular 92.6 Volume Mean Corpuscular 29.5 Hemoglobin Mean Corpuscular 31.8 L Hemoglobin Concen t Red Cell 14.0 Distribution Width Platelet Count 298 Mean Platelet 11.2 H Volume Immature 0.500 H Granulocytes % Neutrophils % 82.2 H Lymphocytes % 8.0 L Monocytes % 7.7 Eosinophils % 1.0 Basophils % 0.6 Nucleated Red 0.0 Blood Cells % Immature 0.060 H Granulocytes # Neutrophils # 9.3 H Lymphocytes # 0.9 Monocytes # 0.9 Eosinophils # 0.1 Basophils # 0.1 Nucleated Red 0.0 Blood Cells # Sodium Level 142 Potassium Level 3.7 Chloride Level 107 Carbon Dioxide 27 Level Anion Gap 8 Blood Urea 38 H Nitrogen Creatinine 1.13 H Est Glomerular Filtrat Rate mL/min Glucose Level 298 #H Calcium Level 8.1 L Phosphorus Level 4.7 Magnesium Level 2.2 Test 02/15/19 13:01 02/15/19 13:25 02/15/19 17:11 02/15/19 20:24 Blood Gas Blood arterial Specimen Source Arterial Blood 02/15/2019 1:06:5 Date Drawn 1 PM Arterial Blood pH 7.431 (Temp corrected) Arterial Blood 41.4 pCO2 (Temp correct) Arterial Blood 88.3 pO2 (Temp corrected) Arterial Blood 26.9 H HCO3 Arterial Blood 2.4 Base Excess Arterial Blood 95.8 Oxygen Saturation Dawson Test ACCEPTAB Arterial Blood Right Radial Gas Puncture Site Arterial 0.5 Blood Carboxyhemo globin Arterial Blood 0 Methemoglobin Blood Gas A-a O2 77.0 H Differential Oxyhemoglobin 95.3 Percent Blood Gas 37.0 Temperature Blood Gas Actual 31 Respiration Rate Blood Gas VENT - CPAP Modality FiO2 30.0 Blood Gas Low 5.0 PEEP Setting Blood Gas 10 Pressure Support Blood Gas TM Notified Whom Blood Gas 02/15/2019 1:14:3 Notified Time 7 PM Bedside Glucose 140 172 231 H Medications Medication Current Medications Ondansetron HCl (Zofran Inj) 4 mg Q6H PRN IV NAUSEA AND/OR VOMITING; Start 02/12/19 at 07:30 Albuterol (Ventolin Hfa) 2 puff Q2H RESP THERAPY PRN INH SHORTNESS OF BREATH; Start 02/12/19 at 07:30 Ipratropium [place] (Atrovent Hfa) 2 puff Q2H RESP THERAPY PRN INH SHORTNESS OF BREATH; Start 02/12/19 at 07:30 Acetaminophen (Tylenol Liquid) 650 mg Q6H PRN PO PAIN LEVEL 1-3 OR FEVER; Start 02/12/19 at 07:30 Acetaminophen (Tylenol Supp) 650 mg Q4H PRN [place] PAIN LEVEL 1-3 OR FEVER; Start 02/12/19 at 07:30 Lorazepam (Ativan) 1 mg Q2H PRN IV ANXIETY; Start 02/12/19 at 07:30 Propofol 100 ml @ 2.748 mls/ hr PER PROTOCOL IV Last administered on 02/15/19at 21:38; Admin Dose 21.984 MLS/HR; Start 02/12/19 at 07:30 Aspirin (Aspirin) 81 mg DAILY PO Last administered on 02/15/19at 09:26; Admin Dose 81 MG; Start 02/12/19 at 09:00 Clopidogrel Bisulfate (plaVIX) 75 mg DAILY NGT Last administered on 02/15/19at 09:26; Admin Dose 75 MG; Start 02/12/19 at 09:00 Atorvastatin Calcium (Lipitor) 80 mg QHS NGT Last administered on 02/15/19at 20:26; Admin Dose 80 MG; Start 02/12/19 at 21:00 Miscellaneous Information 1 ea NOTE XX ; Start 02/12/19 at 09:30 Glucose (Glutose) 15 gm Q15M PRN PO DECREASED GLUCOSE; Start 02/12/19 at 09:30 Glucose (Glutose) 22.5 gm Q15M PRN PO DECREASED GLUCOSE; Start 02/12/19 at 09:30 Dextrose (D50w Syringe) 25 ml Q15M PRN IV DECREASED GLUCOSE; Start 02/12/19 at 09:30 Dextrose (D50w Syringe) 50 ml Q15M PRN IV DECREASED GLUCOSE; Start 02/12/19 at 09:30 Glucagon (Glucagen) 1 mg Q15M PRN IM DECREASED GLUCOSE; Start 02/12/19 at 09:30 Glucose (Glutose) 15 gm Q15M PRN BUCCAL DECREASED GLUCOSE; Start 02/12/19 at 09:30 Insulin Aspart (Novolog Insulin Pen) NOVOLOG *MODERATE* ALGORI... Q4 SC Last administered on 02/15/19 20:30; Admin Dose 6 UNIT; Start 02/12/19 at 23:07 Piperacillin Sod/ Tazobactam Sod 100 ml @ 200 mls/hr Q6 IVPB Last administered on 02/15/19 17:12; Admin Dose 200 MLS/HR; Start 02/13/19 at 12:00 Fentanyl 100 ml @ 2.5 mls/hr TITRATE IV Last administered on 02/15/19 00:39; Admin Dose 2.5 MLS/HR; Start 02/13/19 at 15:00 Insulin Glargine (Lantus) 40 units DAILY@2000 SC Last administered on 02/15/19 20:30; Admin Dose 40 UNITS; Start 02/13/19 at 20:00 Carvedilol (Coreg) 25 mg BID PO Last administered on 02/15/19 20:26; Admin Dose 25 MG; Start 02/14/19 at 21:00 Sodium Hypochlorite (Dakins Diluted ()) 1 applic DAILY TP Last administered on 02/15/19 09:28; Admin Dose 1 APPLIC; Start 02/15/19 at 09:00 Famotidine (Pepcid) 20 mg Q12 NGT Last administered on 02/15/19 20:25; Admin Dose 20 MG; Start 02/14/19 at 21:00 Povidone Iodine (Povidone-Iodine) 1 applic DAILY TOP Last administered on 02/15/19 09:27; Admin Dose 1 APPLIC; Start 02/14/19 at 20:00 Furosemide (Lasix) 40 mg BID IV Last administered on 02/15/19 20:26; Admin Dose 40 MG; Start 02/15/19 at 21:00 Senna (Senokot) 2 tab BID NGT Last administered on 02/15/19at 20:26; Admin Dose 2 TAB; Start 02/15/19 at 21:00 Polyethylene Glycol (Miralax) 17 gm DAILY NGT ; Start 02/16/19 at 09:00 NASIR MILLER DPM Feb 15, 2019 22:27
[2019-02-16] VITALS (35 sets, daily range): BP systolic 91–151; BP diastolic 48–69; PULSE 69–86; RESP 14–29
[2019-02-16] MEDS: PIPER-TAZO 3.375 GM IV (PMX) 100 ML IVPB SCH ×3 (00:18→14:06)
[2019-02-16] MEDS: INSULIN ASPART [NOVOLOG] 3 ML PEN SC SCH ×6 (00:34→20:28)
[2019-02-16] MEDS: PROPOFOL 100 ML IV SCH ×4 (02:05→20:58)
[2019-02-16] MEDS: FAMOTIDINE 20 MG TAB NGT SCH ×2 (08:25→20:18)
[2019-02-16] MEDS: SENNA TAB NGT SCH ×2 (08:25→20:18)
[2019-02-16] MEDS: FUROSEMIDE 40 MG INJ IV SCH ×2 (08:25→20:18)
[2019-02-16] MEDS: CLOPIDOGREL 75 MG TAB NGT SCH (08:26)
[2019-02-16] MEDS: POLYETHYLENE GLYCOL 17 GM PACKET NGT SCH (08:26)
[2019-02-16] MEDS: ASPIRIN 81 MG TAB PO SCH (08:26)
[2019-02-16] MEDS: BALSAM PERU/CASTOR OIL 60 GM TUBE TOP SCH ×2 (08:27→20:25)
[2019-02-16] MEDS: POVIDONE IODINE 10% 28.4 GM OINT TOP SCH (08:27)
[2019-02-16] MEDS: DAKINS 0.0125%(1/40) 473 ML SOLUTION TP SCH (08:27)
--- NOTE | 2019-02-16 09:49 | CONS ---
Assessment/Plan Assessment/Plan Assessment/Plan (Daily) Ventilator setting; assist control of 16, tidal volume 500, PEEP of 5, 30% FiO2. Assessment and recommendations; 1. Patient with history of cardiomyopathy admitted for CHF exacerbation with severe pulmonary edema with significant radiological improvement. 2. Possibly some element of superimposed pneumonia as well. 3. Severe peripheral vascular disease. 4. Diabetes. 5. Hypertension. Continue to hold sedation. Perform CPAP trial in 45 minutes as tolerated. Obtain follow-up chest x-ray. Continue current medication regimen. Further recommendations once patient is on CPAP. Prognosis is guarded. 35 minutes of critical care time was spent evaluating patient. Consultation Date/Type/Reason Admit Date/Time Feb 12, 2019 at 04:44 Initial Consult Date 02/13/19 Type of Consult Pulmonary/critical care Patient is a 73-year-old lady who was admitted to the hospital with complaints of shortness of breath. Patient was in respiratory failure and had to be intubated and then transferred to ICU. By the time I saw her, patient is orally intubated and sedated with propofol drip. Patient did not appear to be in any distress whatsoever. Per medical records, no CPR was done. Past medical history; 1. 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 2. Diabetes. 3. Peripheral vascular disease. With multiple right lower extremity surgeries as well. 4. CHF. 5. Chronic steroid use. Diagnosis is unclear. Medications; reviewed. Allergies; as outlined above. Family history, occupational history, social history are not available. Review of system; unable to be obtained. General exam; elderly female, orally intubated, sedated, currently in no distress. Date/Time of Note DATE: 02/16/19 TIME: 09:45 24 HR Interval Summary Free Text/Dictation Patient condition is critical. Patient was given a weaning trial from ventilator yesterday patient could not positive. Had to be reverted back to assist control mode. Patient however has remained hemodynamically stable. General exam; elderly woman, orally intubated, awake and responsive. Currently no distress. Off sedation for the last 2 hours. Exam/Review of Systems Exam Vitals Vital Signs Date Temp Pulse Resp B/P (MAP) Pulse Ox O2 O2 Flow FiO2 Time Delivery Rate 02/16/19 82 16 151/63 93 Mechanical 09:00 (92) Ventilator 02/16/19 98.9 08:00 02/16/19 30 05:39 Intake and Output 02/15/19 02/15/19 02/16/19 1515:00 23:00 07:00 IntakeIntake Total 324.4 ml 661.720 ml 815.872 ml OutputOutput Total 925 ml 735 ml 800 ml BalanceBalance -600.6 ml -73.280 ml 15.872 ml Exam H ENT exam; supple neck, positive JVD. No lymphadenopathy. Midline trachea. No thyromegaly. Orally intubated. Pupils are small bilaterally. Chest exam; diminished but clear breath sounds. S1-S2 audible, no murmurs. Regular rhythm. Abdomen exam; protuberant. Nontender. No organomegaly. Bowel sounds are audible. Extremity exam; patient has a left lower extremity amputation at hip. Multiple scars present in right lower extremity with dressing applied to right foot. [employer] exam; patient awake and responsive. Results Result Diagram: 02/16/19 0432 02/16/19 0432 Results 24hrs Laboratory Tests Test 02/15/19 13:01 02/15/19 13:25 02/15/19 17:11 02/15/19 20:24 Blood Gas Blood arterial Specimen Source Arterial Blood 02/15/2019 1:06:5 Date Drawn 1 PM Arterial Blood pH 7.431 (Temp corrected) Arterial Blood 41.4 pCO2 (Temp correct) Arterial Blood 88.3 pO2 (Temp corrected) Arterial Blood 26.9 H HCO3 Arterial Blood 2.4 Base Excess Arterial Blood 95.8 Oxygen Saturation Dawson Test ACCEPTAB Arterial Blood Right Radial Gas Puncture Site Arterial 0.5 Blood Carboxyhemo globin Arterial Blood 0 Methemoglobin Blood Gas A-a O2 77.0 H Differential Oxyhemoglobin 95.3 Percent Blood Gas 37.0 Temperature Blood Gas Actual 31 Respiration Rate Blood Gas VENT - CPAP Modality FiO2 30.0 Blood Gas Low 5.0 PEEP Setting Blood Gas 10 Pressure Support Blood Gas TM Notified Whom Blood Gas 02/15/2019 1:14:3 Notified Time 7 PM Bedside Glucose 140 172 231 H Test 02/16/19 00:32 02/16/19 04:32 02/16/19 05:23 Bedside Glucose 245 H 222 H White Blood Count 11.3 H Red Blood Count 4.19 L Hemoglobin 12.4 Hematocrit 39.0 Mean Corpuscular 93.1 Volume Mean Corpuscular 29.6 Hemoglobin Mean Corpuscular 31.8 L Hemoglobin Concen t Red Cell 13.7 Distribution Width Platelet Count 297 Mean Platelet 11.3 H Volume Immature 0.600 H Granulocytes % Neutrophils % 84.5 H Lymphocytes % 7.2 L Monocytes % 5.8 Eosinophils % 1.5 Basophils % 0.4 Nucleated Red 0.0 Blood Cells % Immature 0.070 H Granulocytes # Neutrophils # 9.6 H Lymphocytes # 0.8 Monocytes # 0.7 Eosinophils # 0.2 Basophils # 0.1 Nucleated Red 0.0 Blood Cells # Sodium Level 144 Potassium Level 3.5 Chloride Level 108 Carbon Dioxide 28 Level Anion Gap 8 Blood Urea 38 H Nitrogen Creatinine 1.10 H Est Glomerular Filtrat Rate mL/min Glucose Level 241 H Calcium Level 8.1 L Phosphorus Level 4.6 Magnesium Level 2.2 Medications Medication Current Medications Ondansetron HCl (Zofran Inj) 4 mg Q6H PRN IV NAUSEA AND/OR VOMITING; Start 02/12/19 at 07:30 Albuterol (Ventolin Hfa) 2 puff Q2H RESP THERAPY PRN INH SHORTNESS OF BREATH; Start 02/12/19 at 07:30 Ipratropium [place] (Atrovent Hfa) 2 puff Q2H RESP THERAPY PRN INH SHORTNESS OF BREATH; Start 02/12/19 at 07:30 Acetaminophen (Tylenol Liquid) 650 mg Q6H PRN PO PAIN LEVEL 1-3 OR FEVER; Start 02/12/19 at 07:30 Acetaminophen (Tylenol Supp) 650 mg Q4H PRN [place] PAIN LEVEL 1-3 OR FEVER; Start 02/12/19 at 07:30 Lorazepam (Ativan) 1 mg Q2H PRN IV ANXIETY; Start 02/12/19 at 07:30 Propofol 100 ml @ 2.748 mls/ hr PER PROTOCOL IV Last administered on 02/16/19at 06:59; Admin Dose 21.984 MLS/HR; Start 02/12/19 at 07:30 Aspirin (Aspirin) 81 mg DAILY PO Last administered on 02/16/19at 08:26; Admin Dose 81 MG; Start 02/12/19 at 09:00 Clopidogrel Bisulfate (plaVIX) 75 mg DAILY NGT Last administered on 02/16/19at 08:26; Admin Dose 75 MG; Start 02/12/19 at 09:00 Atorvastatin Calcium (Lipitor) 80 mg QHS NGT Last administered on 02/15/19at 20:26; Admin Dose 80 MG; Start 02/12/19 at 21:00 Miscellaneous Information 1 ea NOTE XX ; Start 02/12/19 at 09:30 Glucose (Glutose) 15 gm Q15M PRN PO DECREASED GLUCOSE; Start 02/12/19 at 09:30 Glucose (Glutose) 22.5 gm Q15M PRN PO DECREASED GLUCOSE; Start 02/12/19 at 09:30 Dextrose (D50w Syringe) 25 ml Q15M PRN IV DECREASED GLUCOSE; Start 02/12/19 at 09:30 Dextrose (D50w Syringe) 50 ml Q15M PRN IV DECREASED GLUCOSE; Start 02/12/19 at 09:30 Glucagon (Glucagen) 1 mg Q15M PRN IM DECREASED GLUCOSE; Start 02/12/19 at 09:30 Glucose (Glutose) 15 gm Q15M PRN BUCCAL DECREASED GLUCOSE; Start 02/12/19 at 09:30 Insulin Aspart (Novolog Insulin Pen) NOVOLOG *MODERATE* ALGORI... Q4 SC Last administered on 02/16/19 05:26; Admin Dose 6 UNIT; Start 02/12/19 at 23:07 Piperacillin Sod/ Tazobactam Sod 100 ml @ 200 mls/hr Q6 IVPB Last administered on 02/16/19at 05:24; Admin Dose 200 MLS/HR; Start 02/13/19 at 12:00 Fentanyl 100 ml @ 2.5 mls/hr TITRATE IV Last administered on 02/15/19at 00:39; Admin Dose 2.5 MLS/HR; Start 02/13/19 at 15:00 Carvedilol (Coreg) 25 mg BID PO Last administered on 02/16/19at 08:26; Admin Dose 25 MG; Start 02/14/19 at 21:00 Sodium Hypochlorite (Dakins Diluted ()) 1 applic DAILY TP Last administered on 02/16/19at 08:27; Admin Dose 1 APPLIC; Start 02/15/19 at 09:00 Famotidine (Pepcid) 20 mg Q12 NGT Last administered on 02/16/19 08:25; Admin Dose 20 MG; Start 7/10/19 at 21:00 Povidone Iodine (Povidone-Iodine) 1 applic DAILY TOP Last administered on 02/16/19 08:27; Admin Dose 1 APPLIC; Start 02/14/19 at 20:00 Furosemide (Lasix) 40 mg BID IV Last administered on 02/16/19 08:25; Admin Dose 40 MG; Start 02/15/19 at 21:00 Senna (Senokot) 2 tab BID NGT Last administered on 02/16/19 08:25; Admin Dose 2 TAB; Start 02/15/19 at 21:00 Polyethylene Glycol (Miralax) 17 gm DAILY NGT Last administered on 02/16/19 08:26; Admin Dose 17 GM; Start 02/16/19 at 09:00 Insulin Glargine (Lantus) 40 units BID SC ; Start 02/16/19 at 09:00 SANTHOSH GABRIEL Feb 16, 2019 09:49
[2019-02-16] MEDS: INSULIN GLARGINE [LANTus] (100 UNITS/ML) SYG SC SCH ×2 (10:27→20:28)
--- NOTE | 2019-02-16 13:44 | PN ---
Date/Time of Note Date/Time of Note DATE: 02/16/19 TIME: 13:41 Assessment/Plan VTE Prophylaxis Risk score (from Ns)>0 risk: 8 SCD applied (from Ns): No SCD contraindicated: other (foot wound) Pharmacological prophylaxis: NA/contraindicated Pharm contraindication: anticoag not tolerated Lines/Catheters [facility] Type ([facility]): PICC Line Central line still needed: Yes Urinary Cath still in place: Yes Reason Cath still needed: other (indicate) (intubated) Assessment/Plan Assessment/Plan 73 yo morbidly obese woman history of peripheral vascular disease, diabetes type II, CHF, likely COPD presents with acute respiratory failure #Acute respiratory failure - CTPA negative for PE - Likely CHF exacerbation - Gentle diuresis - Extubation per pulmonary. #VICTOR M - Rising Cr associated with diuresis - May be cardiorenal. Still has pulmonary edema on CXR. #Diabetes type II, insulin dependent - aspart sliding scale, glargine 20 qhs. #Peripheral vascular disease - Cont aspirin, plavix, statin - Dr Castro and Evangelista saw foot ulcer. No further interventions, wait for it to heal. #CHF - resume home carvedilol. #History of DVT - LE duplex negative for DVT. - Not currently on anticoagulation. 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 GI: famotidine DVT: None Result Diagram: 02/16/1943102/16/19431 Subjective 24 Hr Interval Summary Free Text/Dictation Failed extubation yesterday. Lasted about 2 hours on CPAP, developed shallow respirations about 250-350 cc respiratory rate 28-33. Today did worse. Lasted only about 75 minutes. Exam/Review of Systems Exam Vitals Vital Signs Date Temp Pulse Resp B/P (MAP) Pulse Ox O2 O2 Flow FiO2 Time Delivery Rate 02/16/19 82 16 151/63 93 Mechanical 09:00 (92) Ventilator 02/16/19 98.9 08:00 02/16/19 30 05:39 Intake and Output 02/15/19 02/15/19 02/16/19 1515:00 23:00 07:00 IntakeIntake Total 324.4 ml 661.720 ml 815.872 ml OutputOutput Total 925 ml 735 ml 800 ml BalanceBalance -600.6 ml -73.280 ml 15.872 ml Exam Gen: Morbidly obese woman intubated and sedated. HEENT: Moist mucous membranes. ET tube in place. Neck: Supple, no lymphadenopathy. Card: Regular rate and rhythm, no murmurs. Pulm: Mechanical breath sounds bilaterally. No crackles. Abd: Soft, nontender, nondistended. Hypoactive bowel sounds. 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 R leg with well healed bypass scar below the knee. Skin: R lower leg erythema has resolved. Right great toe medial ulcer, clean based, no drainage, no surrounding erythema. Results Results 24hrs Laboratory Tests Test 02/15/19 17:11 02/15/19 20:24 02/16/19 00:32 02/16/19 04:32 Bedside Glucose 172 231 H 245 H White Blood Count 11.3 H Red Blood Count 4.19 L Hemoglobin 12.4 Hematocrit 39.0 Mean Corpuscular 93.1 Volume Mean Corpuscular 29.6 Hemoglobin Mean Corpuscular 31.8 L Hemoglobin Concent Red Cell 13.7 Distribution Width Platelet Count 297 Mean Platelet Volume 11.3 H Immature 0.600 H Granulocytes % Neutrophils % 84.5 H Lymphocytes % 7.2 L Monocytes % 5.8 Eosinophils % 1.5 Basophils % 0.4 Nucleated Red Blood 0.0 Cells % Immature 0.070 H Granulocytes # Neutrophils # 9.6 H Lymphocytes # 0.8 Monocytes # 0.7 Eosinophils # 0.2 Basophils # 0.1 Nucleated Red Blood 0.0 Cells # Sodium Level 144 Potassium Level 3.5 Chloride Level 108 Carbon Dioxide Level 28 Anion Gap 8 Blood Urea Nitrogen 38 H Creatinine 1.10 H Est Glomerular Filtrat Rate mL/min Glucose Level 241 H Calcium Level 8.1 L Phosphorus Level 4.6 Magnesium Level 2.2 Test 02/16/19 05:23 02/16/19 10:24 Bedside Glucose 222 H 205 Medications Medication Current Medications Ondansetron HCl (Zofran Inj) 4 mg Q6H PRN IV NAUSEA AND/OR VOMITING; Start 02/12/19 at 07:30 Albuterol (Ventolin Hfa) 2 puff Q2H RESP THERAPY PRN INH SHORTNESS OF BREATH; Start 02/12/19 at 07:30 Ipratropium [place] (Atrovent Hfa) 2 puff Q2H RESP THERAPY PRN INH SHORTNESS OF BREATH; Start 02/12/19 at 07:30 Acetaminophen (Tylenol Liquid) 650 mg Q6H PRN PO PAIN LEVEL 1-3 OR FEVER; Start 02/12/19 at 07:30 Acetaminophen (Tylenol Supp) 650 mg Q4H PRN [place] PAIN LEVEL 1-3 OR FEVER; Start 02/12/19 at 07:30 Lorazepam (Ativan) 1 mg Q2H PRN IV ANXIETY; Start 02/12/19 at 07:30 Propofol 100 ml @ 2.748 mls/ hr PER PROTOCOL IV Last administered on 02/16/19at 06:59; Admin Dose 21.984 MLS/HR; Start 02/12/19 at 07:30 Aspirin (Aspirin) 81 mg DAILY PO Last administered on 02/16/19at 08:26; Admin Dose 81 MG; Start 02/12/19 at 09:00 Clopidogrel Bisulfate (plaVIX) 75 mg DAILY NGT Last administered on 02/16/19at 08:26; Admin Dose 75 MG; Start 02/12/19 at 09:00 Atorvastatin Calcium (Lipitor) 80 mg QHS NGT Last administered on 02/15/19at 20:26; Admin Dose 80 MG; Start 02/12/19 at 21:00 Miscellaneous Information 1 ea NOTE XX ; Start 02/12/19 at 09:30 Glucose (Glutose) 15 gm Q15M PRN PO DECREASED GLUCOSE; Start 02/12/19 at 09:30 Glucose (Glutose) 22.5 gm Q15M PRN PO DECREASED GLUCOSE; Start 02/12/19 at 09:30 Dextrose (D50w Syringe) 25 ml Q15M PRN IV DECREASED GLUCOSE; Start 02/12/19 at 09:30 Dextrose (D50w Syringe) 50 ml Q15M PRN IV DECREASED GLUCOSE; Start 02/12/19 at 09:30 Glucagon (Glucagen) 1 mg Q15M PRN IM DECREASED GLUCOSE; Start 02/12/19 at 09:30 Glucose (Glutose) 15 gm Q15M PRN BUCCAL DECREASED GLUCOSE; Start 02/12/19 at 09:30 Insulin Aspart (Novolog Insulin Pen) NOVOLOG *MODERATE* ALGORI... Q4 SC Last administered on 02/16/19at 10:27; Admin Dose 4 UNIT; Start 02/12/19 at 23:07 Piperacillin Sod/ Tazobactam Sod 100 ml @ 200 mls/hr Q6 IVPB Last administered on 02/16/19 05:24; Admin Dose 200 MLS/HR; Start 02/13/19 at 12:00 Fentanyl 100 ml @ 2.5 mls/hr TITRATE IV Last administered on 02/15/19 00:39; Admin Dose 2.5 MLS/HR; Start 02/13/19 at 15:00 Carvedilol (Coreg) 25 mg BID PO Last administered on 02/16/19 08:26; Admin Dose 25 MG; Start 02/14/19 at 21:00 Sodium Hypochlorite (Dakins Diluted ()) 1 applic DAILY TP Last administered on 02/16/19 08:27; Admin Dose 1 APPLIC; Start 02/15/19 at 09:00 Famotidine (Pepcid) 20 mg Q12 NGT Last administered on 02/16/19 08:25; Admin Dose 20 MG; Start 02/14/19 at 21:00 Povidone Iodine (Povidone-Iodine) 1 applic DAILY TOP Last administered on 02/16/19 08:27; Admin Dose 1 APPLIC; Start 02/14/19 at 20:00 Furosemide (Lasix) 40 mg BID IV Last administered on 02/16/19 08:25; Admin Dose 40 MG; Start 02/15/19 at 21:00 Senna (Senokot) 2 tab BID NGT Last administered on 02/16/19 08:25; Admin Dose 2 TAB; Start 02/15/19 at 21:00 Polyethylene Glycol (Miralax) 17 gm DAILY NGT Last administered on 02/16/19 08:26; Admin Dose 17 GM; Start 02/16/19 at 09:00 Insulin Glargine (Lantus) 40 units BID SC Last administered on 02/16/19 10:27; Admin Dose 40 UNITS; Start 02/16/19 at 09:00 ANTON OZUNA MD Feb 16, 2019 13:44
[2019-02-16] MEDS: ATORVASTATIN 80 MG TAB NGT SCH (20:18)
[2019-02-17] VITALS (36 sets, daily range): BP systolic 110–179; BP diastolic 44–70; PULSE 68–81; RESP 14–19
[2019-02-17] MEDS: INSULIN ASPART [NOVOLOG] 3 ML PEN SC SCH ×6 (01:35→20:51)
[2019-02-17] MEDS: PROPOFOL 100 ML IV SCH (01:46)
[2019-02-17] MEDS: FENTAnyl (DRIP) 1000 mcg/100mL 100 ML IV SCH (01:54)
[2019-02-17] MEDS: DOCUSATE SODIUM 10 MG/ML (10ML CUP) NGT SCH ×3 (08:53→20:45)
[2019-02-17] MEDS: CLOPIDOGREL 75 MG TAB NGT SCH (08:54)
[2019-02-17] MEDS: POLYETHYLENE GLYCOL 17 GM PACKET NGT SCH ×2 (08:54→09:00)
[2019-02-17] MEDS: FUROSEMIDE 40 MG INJ IV SCH ×2 (08:54→20:45)
[2019-02-17] MEDS: FAMOTIDINE 20 MG TAB NGT SCH ×2 (08:55→20:46)
[2019-02-17] MEDS: DAKINS 0.0125%(1/40) 473 ML SOLUTION TP SCH (08:55)
[2019-02-17] MEDS: SENNA TAB NGT SCH ×2 (08:55→20:45)
[2019-02-17] MEDS: ASPIRIN 81 MG TAB PO SCH (08:55)
[2019-02-17] MEDS: BALSAM PERU/CASTOR OIL 60 GM TUBE TOP SCH ×2 (08:55→20:46)
[2019-02-17] MEDS: POVIDONE IODINE 10% 28.4 GM OINT TOP SCH (08:56)
[2019-02-17] MEDS: INSULIN GLARGINE [LANTus] (100 UNITS/ML) SYG SC SCH ×2 (08:58→20:49)
--- NOTE | 2019-02-17 09:28 | PN ---
Date/Time of Note Date/Time of Note DATE: 02/17/19 TIME: 09:22 Assessment/Plan VTE Prophylaxis Risk score (from Ns)>0 risk: 10 SCD applied (from Ns): No SCD contraindicated: other (PAD, vascular ulcers) Pharmacological prophylaxis: NA/contraindicated Pharm contraindication: anticoag not tolerated Lines/Catheters [facility] PICC Line Central line still needed: Yes Urinary Cath still in place: Yes Reason Cath still needed: other (indicate) (intubated) Assessment/Plan Assessment/Plan 73 yo morbidly obese woman history of peripheral vascular disease, diabetes type II, CHF, likely COPD presents with acute respiratory failure due to CHF exacerbation #Sepsis - No evidence of sepsis on admission. - Patient developed fever to 102 on 02/17. - Empiric vanco and zosyn, blood and urine cultures sent. - Again a wound swab was done of the R toe ulcer but this does not look infect ed. #Acute respiratory failure - CTPA negative for PE - Likely CHF exacerbation - Gentle diuresis - Extubation per pulmonary. #Peripheral vascular disease - Cont aspirin, plavix, statin #Diabetic/vascular right foot ulcer - Patient also has outpatient vascular followup. - Patient has failed R sided revascularization in the past; per Dr Naidu repeat attempt at revascularization would be unwise. - Wound does not currently appear infected. Wound swab was done which is positive for some bacteria. - Continue supportive treatment with local wound care, no debridement planned. #VICTOR M - May have been due to unstable hemodynamics on admission; or contrast load. - Now resolving. - Continue diuresis as above #Diabetes type II, insulin dependent - aspart sliding scale, glargine 20 qhs. #CHF - resume home carvedilol. #History of DVT - LE duplex negative for DVT. - Not currently on anticoagulation. 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 GI: famotidine DVT: None Result Diagram: 02/17/19 0500 02/17/19 0500 Subjective 24 Hr Interval Summary Free Text/Dictation Failed extubation yesterday. Lasted about 75 minutes on CPAP, then grew tachypneic and shallow respirations. Plan for CPAP trial again today. Patient febrile to 102 this morning. Blood and urine cultures drawn. Exam/Review of Systems Exam Vitals Vital Signs Date Temp Pulse Resp B/P (MAP) Pulse Ox O2 O2 Flow FiO2 Time Delivery Rate 02/17/19 81 08:00 02/17/19 16 154/62 93 Mechanical 07:00 (92) Ventilator 02/17/19 30 05:26 02/17/19 98.9 04:00 Intake and Output 02/16/19 02/16/19 02/17/19 1414:59 22:59 06:59 IntakeIntake Total 451.736 ml 517.392 ml 560.912 ml OutputOutput Total 715 ml 690 ml 500 ml BalanceBalance -263.264 ml -172.608 ml 60.912 ml Exam Gen: Morbidly obese woman intubated and sedated. HEENT: Moist mucous membranes. ET tube in place. Neck: Supple, no lymphadenopathy. Card: Regular rate and rhythm, no murmurs. Pulm: Mechanical breath sounds bilaterally. No crackles. Abd: Soft, nontender, nondistended. Hypoactive bowel sounds. 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 R leg with well healed bypass scar below the knee. Skin: R lower leg erythema has resolved. Right great toe medial ulcer, clean b ased, no drainage, no surrounding erythema. Results Results 24hrs Laboratory Tests Test 02/16/19 10:24 02/16/19 14:07 02/16/19 16:43 02/17/19 01:32 Bedside Glucose 205 164 173 Procalcitonin 0.46 H Test 02/17/19 04:20 02/17/19 05:00 02/17/19 08:53 Bedside Glucose 204 197 White Blood Count 10.0 Red Blood Count 4.34 Hemoglobin 12.5 Hematocrit 40.6 Mean Corpuscular 93.5 Volume Mean Corpuscular 28.8 L Hemoglobin Mean Corpuscular 30.8 L Hemoglobin Concent Red Cell 13.3 Distribution Width Platelet Count 338 Mean Platelet Volume 11.6 H Immature 0.300 Granulocytes % Neutrophils % 79.1 H Lymphocytes % 8.1 L Monocytes % 7.0 Eosinophils % 5.0 Basophils % 0.5 Nucleated Red Blood 0.0 Cells % Immature 0.030 Granulocytes # Neutrophils # 7.9 H Lymphocytes # 0.8 Monocytes # 0.7 Eosinophils # 0.5 Basophils # 0.1 Nucleated Red Blood 0.0 Cells # Sodium Level 144 Potassium Level 3.6 Chloride Level 107 Carbon Dioxide Level 29 Anion Gap 8 Blood Urea Nitrogen 44 H Creatinine 1.06 H Est Glomerular Filtrat Rate mL/min Glucose Level 201 Calcium Level 8.5 Phosphorus Level 4.6 Magnesium Level 2.3 Medications Medication Current Medications Ondansetron HCl (Zofran Inj) 4 mg Q6H PRN IV NAUSEA AND/OR VOMITING; Start 02/12/19 at 07:30 Albuterol (Ventolin Hfa) 2 puff Q2H RESP THERAPY PRN INH SHORTNESS OF BREATH; Start 02/12/19 at 07:30 Ipratropium [place] (Atrovent Hfa) 2 puff Q2H RESP THERAPY PRN INH SHORTNESS OF BREATH; Start 02/12/19 at 07:30 Acetaminophen (Tylenol Liquid) 650 mg Q6H PRN PO PAIN LEVEL 1-3 OR FEVER; S tart 02/12/19 at 07:30 Acetaminophen (Tylenol Supp) 650 mg Q4H PRN [place] PAIN LEVEL 1-3 OR FEVER; Start 02/12/19 at 07:30 Lorazepam (Ativan) 1 mg Q2H PRN IV ANXIETY; Start 02/12/19 at 07:30 Propofol 100 ml @ 2.748 mls/ hr PER PROTOCOL IV Last administered on 02/17/19at 01:46; Admin Dose 16.488 MLS/HR; Start 02/12/19 at 07:30 Aspirin (Aspirin) 81 mg DAILY PO Last administered on 02/17/19at 08:55; Admin Dose 81 MG; Start 02/12/19 at 09:00 Clopidogrel Bisulfate (plaVIX) 75 mg DAILY NGT Last administered on 02/17/19at 08:54; Admin Dose 75 MG; Start 02/12/19 at 09:00 Atorvastatin Calcium (Lipitor) 80 mg QHS NGT Last administered on 02/16/19at 20:18; Admin Dose 80 MG; Start 02/12/19 at 21:00 Miscellaneous Information 1 ea NOTE XX ; Start 02/12/19 at 09:30 Glucose (Glutose) 15 gm Q15M PRN PO DECREASED GLUCOSE; Start 02/12/19 at 09:30 Glucose (Glutose) 22.5 gm Q15M PRN PO DECREASED GLUCOSE; Start 02/12/19 at 09:30 Dextrose (D50w Syringe) 25 ml Q15M PRN IV DECREASED GLUCOSE; Start 02/12/19 at 09:30 Dextrose (D50w Syringe) 50 ml Q15M PRN IV DECREASED GLUCOSE; Start 02/12/19 at 09:30 Glucagon (Glucagen) 1 mg Q15M PRN IM DECREASED GLUCOSE; Start 02/12/19 at 09:30 Glucose (Glutose) 15 gm Q15M PRN BUCCAL DECREASED GLUCOSE; Start 02/12/19 at 09:30 Insulin Aspart (Novolog Insulin Pen) NOVOLOG *MODERATE* ALGORI... Q4 SC Last administered on 02/17/19 08:57; Admin Dose 4 UNIT; Start 02/12/19 at 23:07 Fentanyl 100 ml @ 2.5 mls/hr TITRATE IV Last administered on 02/17/19 01:54; Admin Dose 2.5 MLS/HR; Start 02/13/19 at 15:00 Carvedilol (Coreg) 25 mg BID PO Last administered on 02/17/19 08:54; Admin Dose 25 MG; Start 02/14/19 at 21:00 Sodium Hypochlorite (Dakins Diluted ()) 1 applic DAILY TP Last administered on 02/17/19 08:55; Admin Dose 1 APPLIC; Start 02/15/19 at 09:00 Famotidine (Pepcid) 20 mg Q12 NGT Last administered on 02/17/19 08:55; Admin Dose 20 MG; Start 02/14/19 at 21:00 Povidone Iodine (Povidone-Iodine) 1 applic DAILY TOP Last administered on 02/17/19 08:56; Admin Dose 1 APPLIC; Start 02/14/19 at 20:00 Furosemide (Lasix) 40 mg BID IV Last administered on 02/17/19 08:54; Admin Dose 40 MG; Start 02/15/19 at 21:00 Senna (Senokot) 2 tab BID NGT Last administered on 02/17/19 08:55; Admin Dose 2 TAB; Start 02/15/19 at 21:00 Polyethylene Glycol (Miralax) 17 gm DAILY NGT Last administered on 02/16/19 08:26; Admin Dose 17 GM; Start 02/16/19 at 09:00 Insulin Glargine (Lantus) 40 units BID SC Last administered on 02/17/19 08:58; Admin Dose 40 UNITS; Start 02/16/19 at 09:00 Docusate Sodium (Colace Liquid Cup) 200 mg BID NGT ; Start 02/17/19 at 09:00 Bisacodyl (Dulcolax Supp) 5 mg DAILY PRN [place] CONSTIPATION; Start 02/17/19 at 10:00 Piperacillin Sod/ Tazobactam Sod 100 ml @ 200 mls/hr Q6 IVPB ; Start 02/17/19 at 12:00; Status UNV Vancomycin HCl (Vanco Iv Per Pharmacy) VANCOMYCIN PER PHARMACY PER PROTOCOL XX ; Start 02/17/19 at 09:30; Status UNV ANTON OZUNA MD Feb 17, 2019 09:28
[2019-02-17] MEDS ORDERED: VANCOMYCIN IV PER PHARMACY XX SCH (09:30)
[2019-02-17] MEDS: ACETAMINOPHEN 650MG/20.3ML CUP PO PRN ×2 (09:54→20:02)
[2019-02-17] MEDS ORDERED: BISACODYL 10 MG SUPP PR PRN (10:00)
[2019-02-17] MEDS ORDERED: VANCOMYCIN HCL 1.75 GM in SOD CHLORIDE 0.9% 500 ML IVPB SCH (11:00)
[2019-02-17] MEDS: PIPER-TAZO 3.375 GM IV (PMX) 100 ML IVPB SCH ×3 (11:01→23:12)
--- NOTE | 2019-02-17 12:57 | PN ---
DATE: 02/17/2019 PULMONARY FOLLOWUP SUBJECTIVE: Chart reviewed. Events noted. The patient was on CPAP trial yesterday; however, after about an hour the patient became quite tachypneic, tidal volumes were lower than 250 mL. The patient subsequently switched to assist control mode. At present, the patient is off of sedation, but is st ill not fully awake. Orally intubated, saturating 99%. PHYSICAL EXAMINATION: VITAL SIGNS: Blood pressure 154/62, pulse 76, respirations 16, temperature max 102. HEENT: Pupils are equal and react to light. Orally intubated. NECK: Supple, no JVD noted, no cervical adenopathy noted. LUNGS: Decreased breath sounds at the bases. CARDIOVASCULAR: S1, S2 normal. ABDOMEN: Soft, nontender. No new masses noted. EXTREMITIES: No clubbing or cyanosis noted. NEUROLOGIC: Currently not responsive. LABORATORY DATA: Sodium 144, potassium 3.6, chloride 107, CO2 29, BUN 44, creatinine 1.06, glucose 2 01. WBC 10, hemoglobin 12.5, hematocrit 40.6, platelets 338. No chest x-ray or ABG done today. IMPRESSION: 1. Acute respiratory failure. 2. Congestive heart failure, likely due to acute left ventricular systolic failure. 3. Possible superimposed pneumonia. 4. Severe peripheral vascular disease. 5. Diabetes mellitus. 6. Hypertension. RECOMMENDATIONS: 1. The patient was cultured again. 2. Continue assist control mode for now. 3. Continue current antibiotics. 4. Follow up on cultures. 5. Followup ABG and chest x-ray. 6. Will assess for weaning once patient more stable. 7. Discussed with the staff in detail. Dictated By: TACO PLEITEZ MD, MA/ELIZA Conf#: [id number] DID#: [id number] CC: SANTHOSH GABRIEL MD; WYATT DAVIS MD; ANTON OZUNA MD;*EndCC*
[2019-02-17] MEDS: ATORVASTATIN 80 MG TAB NGT SCH (20:45)
[2019-02-18] VITALS (44 sets, daily range): BP systolic 90–159; BP diastolic 44–120; PULSE 69–80; RESP 14–32
[2019-02-18] MEDS: INSULIN ASPART [NOVOLOG] 3 ML PEN SC SCH ×6 (01:01→21:00)
[2019-02-18] MEDS: PIPER-TAZO 3.375 GM IV (PMX) 100 ML IVPB SCH ×3 (05:32→18:21)
[2019-02-18] MEDS: POTASSIUM CHLORIDE 100 ML IVPB SCH ×2 (06:54→10:35)
[2019-02-18] MEDS: SENNA TAB NGT SCH ×2 (08:45→20:39)
[2019-02-18] MEDS: POLYETHYLENE GLYCOL 17 GM PACKET NGT SCH (08:45)
[2019-02-18] MEDS: DOCUSATE SODIUM 10 MG/ML (10ML CUP) NGT SCH ×2 (08:45→20:38)
[2019-02-18] MEDS: ASPIRIN 81 MG TAB PO SCH (08:45)
[2019-02-18] MEDS: FUROSEMIDE 40 MG INJ IV SCH ×2 (08:45→20:38)
[2019-02-18] MEDS: FAMOTIDINE 20 MG TAB NGT SCH ×2 (08:46→21:07)
[2019-02-18] MEDS: CLOPIDOGREL 75 MG TAB NGT SCH (08:46)
[2019-02-18] MEDS: BALSAM PERU/CASTOR OIL 60 GM TUBE TOP SCH (08:47)
[2019-02-18] MEDS: DAKINS 0.0125%(1/40) 473 ML SOLUTION TP SCH (08:47)
[2019-02-18] MEDS: POVIDONE IODINE 10% 28.4 GM OINT TOP SCH (08:47)
[2019-02-18] MEDS: INSULIN GLARGINE [LANTus] (100 UNITS/ML) SYG SC SCH ×2 (08:49→21:12)
--- NOTE | 2019-02-18 08:53 | PN ---
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 PICC Line Central line still needed: Yes Urinary Cath still in place: Yes Reason Cath still needed: other (indicate) (intubated) Assessment/Plan Assessment/Plan 73 yo morbidly obese woman history of peripheral vascular disease, diabetes type II, CHF, likely COPD presents with acute respiratory failure due to CHF exacerbation #Sepsis - No evidence of sepsis on admission. - Patient developed fever to 102 on 02/17. - Empiric vanco and zosyn, blood and urine cultures sent. - Again a wound swab was done of the R toe ulcer but this does not look infected. #Acute respiratory failure - CTPA negative for PE - Likely CHF exacerbation - Gentle diuresis - Extubation per pulmonary. #Peripheral vascular disease - Cont aspirin, plavix, statin #Diabetic/vascular right foot ulcer - Patient also has outpatient vascular followup. - Patient has failed R sided revascularization in the past; per Dr Naidu repeat attempt at revascularization would be unwise. - Wound does not currently appear infected. Wound swab was done which is positive for some bacteria. - Continue supportive treatment with local wound care, no debridement planned. #VICTOR M - May have been due to unstable hemodynamics on admission; or contrast load from CTPA. - Now resolving. - Continue diuresis as above #Diabetes type II, insulin dependent - aspart sliding scale, glargine 20 qhs. #CHF - resume home carvedilol. #History of DVT - LE duplex negative for DVT. - Not currently on anticoagulation. 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 GI: famotidine DVT: None Result Diagram: 02/18/1944602/18/19446 Subjective 24 Hr Interval Summary Free Text/Dictation No acute overnight events. On weaning trial yesterday, patient too heavily sedated. Yesterday and overnight held versed, only on fentanyl. Holding fentanyl this morning, will try CPAP trial again. Exam/Review of Systems Exam Vitals Vital Signs Date Temp Pulse Resp B/P (MAP) Pulse Ox O2 O2 Flow FiO2 Time Delivery Rate 02/18/19 72 16 158/57 98 08:30 (90) 02/18/19 98.8 Mechanical 08:00 Ventilator 02/18/19 30 05:29 Intake and Output 02/17/19 02/17/19 02/18/19 1515:00 23:00 07:00 IntakeIntake Total 701.0 ml 605.5 ml 642 ml OutputOutput Total 530 ml 595 ml 410 ml BalanceBalance 171.0 ml 10.5 ml 232 ml Exam Gen: Morbidly obese woman intubated, awake HEENT: Moist mucous membranes. ET tube in place. Neck: Supple, no lymphadenopathy. Card: Regular rate and rhythm, no murmurs. Pulm: Mechanical breath sounds bilaterally. No crackles. Abd: Soft, nontender, nondistended. Hypoactive bowel sounds. 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 R leg with well healed bypass scar below the knee. Skin: R lower leg erythema has resolved. Right great toe medial ulcer, clean based, no drainage, no surrounding erythema. Results Results 24hrs Laboratory Tests Test 02/17/19 08:53 02/17/19 09:06 02/17/19 13:34 02/17/19 18:13 Bedside Glucose 197 165 182 Urine Color YELLOW Urine Clarity CLOUDY A Urine pH 5.0 Urine Specific 1.009 [place] Urine Ketones NEGATIVE Urine Nitrite NEGATIVE Urine Bilirubin NEGATIVE Urine NEGATIVE Urobilinogen Urine Leukocyte NEGATIVE Esterase Urine Microscopic > 182 H RBC Urine Microscopic 9 H WBC Urine Bacteria FEW A Urine Mucus FEW A Urine Hemoglobin 3+ H Urine Glucose NEGATIVE Urine Total NEGATIVE Protein Test 02/17/19 20:48 02/18/19 00:57 02/18/19 04:34 02/18/19 04:47 Bedside Glucose 165 154 176 White Blood Count 9.1 Red Blood Count 4.17 L Hemoglobin 12.1 Hematocrit 39.6 Mean Corpuscular 95.0 Volume Mean Corpuscular 29.0 Hemoglobin Mean Corpuscular 30.6 L Hemoglobin Concen t Red Cell 13.4 Distribution Width Platelet Count 344 Mean Platelet 11.2 H Volume Immature 0.300 Granulocytes % Neutrophils % 79.7 H Lymphocytes % 6.7 L Monocytes % 8.4 Eosinophils % 4.0 Basophils % 0.9 Nucleated Red 0.0 Blood Cells % Immature 0.030 Granulocytes # Neutrophils # 7.2 Lymphocytes # 0.6 L Monocytes # 0.8 Eosinophils # 0.4 Basophils # 0.1 Nucleated Red 0.0 Blood Cells # Sodium Level 146 H Potassium Level 3.2 L Chloride Level 110 Carbon Dioxide 30 Level Anion Gap 6 Blood Urea 45 H Nitrogen Creatinine 1.17 H Est Glomerular Filtrat Rate mL/min Glucose Level 214 Calcium Level 8.7 Phosphorus Level 4.0 Magnesium Level 2.4 Test 02/18/19 08:00 02/18/19 08:35 Blood Gas Blood arterial Specimen Source Arterial Blood 02/18/2019 8:25:4 Date Drawn 1 AM Arterial Blood pH 7.469 H (Temp corrected) Arterial Blood 40.0 pCO2 (Temp correct) Arterial Blood 126.4 H pO2 (Temp corrected) Arterial Blood 28.4 H HCO3 Arterial Blood 4.4 H Base Excess Arterial Blood 97.9 Oxygen Saturation Dawson Test ACCEPTAB Arterial Blood Right Radial Gas Puncture Site Arterial 0.2 Blood Carboxyhemo globin Arterial Blood 0.1 Methemoglobin Blood Gas A-a O2 40.5 H Differential Oxyhemoglobin 97.6 Percent Blood Gas 37.0 Temperature Blood Gas 16.0 Respiration Rate Blood Gas Actual 16 Respiration Rate Blood Gas VENT - AC Modality FiO2 30.0 Blood Gas Tidal 500.0 Volume Blood Gas Low 5.0 PEEP Setting Blood Gas DT Notified Whom Blood Gas 02/18/2019 8:46:2 Notified Time 7 AM Bedside Glucose 214 Medications Medication Current Medications Ondansetron HCl (Zofran Inj) 4 mg Q6H PRN IV NAUSEA AND/OR VOMITING; Start 02/12/19 at 07:30 Albuterol (Ventolin Hfa) 2 puff Q2H RESP THERAPY PRN INH SHORTNESS OF BREATH; Start 02/12/19 at 07:30 Ipratropium [place] (Atrovent Hfa) 2 puff Q2H RESP THERAPY PRN INH SHORTNESS OF BREATH; Start 02/12/19 at 07:30 Acetaminophen (Tylenol Liquid) 650 mg Q6H PRN PO PAIN LEVEL 1-3 OR FEVER Last administered on 02/17/19at 20:02; Admin Dose 650 MG; Start 02/12/19 at 07:30 Acetaminophen (Tylenol Supp) 650 mg Q4H PRN [place] PAIN LEVEL 1-3 OR FEVER; Start 02/12/19 at 07:30 Lorazepam (Ativan) 1 mg Q2H PRN IV ANXIETY; Start 02/12/19 at 07:30 Propofol 100 ml @ 2.748 mls/ hr PER PROTOCOL IV Last administered on 02/17/19 01:46; Admin Dose 16.488 MLS/HR; Start 02/12/19 at 07:30 Aspirin (Aspirin) 81 mg DAILY PO Last administered on 02/17/19 08:55; Admin Dose 81 MG; Start 02/12/19 at 09:00 Clopidogrel Bisulfate (plaVIX) 75 mg DAILY NGT Last administered on 02/17/19 08:54; Admin Dose 75 MG; Start 02/12/19 at 09:00 Atorvastatin Calcium (Lipitor) 80 mg QHS NGT Last administered on 02/17/19 20:45; Admin Dose 80 MG; Start 02/12/19 at 21:00 Miscellaneous Information 1 ea NOTE XX ; Start 02/12/19 at 09:30 Glucose (Glutose) 15 gm Q15M PRN PO DECREASED GLUCOSE; Start 02/12/19 at 09:30 Glucose (Glutose) 22.5 gm Q15M PRN PO DECREASED GLUCOSE; Start 02/12/19 at 09:30 Dextrose (D50w Syringe) 25 ml Q15M PRN IV DECREASED GLUCOSE; Start 02/12/19 at 09:30 Dextrose (D50w Syringe) 50 ml Q15M PRN IV DECREASED GLUCOSE; Start 02/12/19 at 09:30 Glucagon (Glucagen) 1 mg Q15M PRN IM DECREASED GLUCOSE; Start 02/12/19 at 09:30 Glucose (Glutose) 15 gm Q15M PRN BUCCAL DECREASED GLUCOSE; Start 02/12/19 at 09:30 Insulin Aspart (Novolog Insulin Pen) NOVOLOG *MODERATE* ALGORI... Q4 SC Last administered on 02/18/19 04:39; Admin Dose 2 UNIT; Start 02/12/19 at 23:07 Fentanyl 100 ml @ 2.5 mls/hr TITRATE IV Last administered on 02/17/19 01:54; Admin Dose 2.5 MLS/HR; Start 02/13/19 at 15:00 Carvedilol (Coreg) 25 mg BID PO Last administered on 02/17/19 20:46; Admin Dose 25 MG; Start 02/14/19 at 21:00 Sodium Hypochlorite (Dakins Diluted (40)) 1 applic DAILY TP Last administered on 02/17/19 08:55; Admin Dose 1 APPLIC; Start 02/15/19 at 09:00 Famotidine (Pepcid) 20 mg Q12 NGT Last administered on 02/17/19 20:46; Admin Dose 20 MG; Start 02/14/19 at 21:00 Povidone Iodine (Povidone-Iodine) 1 applic DAILY TOP Last administered on 02/17/19 08:56; Admin Dose 1 APPLIC; Start 02/14/19 at 20:00 Furosemide (Lasix) 40 mg BID IV Last administered on 02/17/19 20:45; Admin Dose 40 MG; Start 02/15/19 at 21:00 Senna (Senokot) 2 tab BID NGT Last administered on 02/17/19 20:45; Admin Dose 2 TAB; Start 02/15/19 at 21:00 Polyethylene Glycol (Miralax) 17 gm DAILY NGT Last administered on 02/16/19 08:26; Admin Dose 17 GM; Start 02/16/19 at 09:00 Insulin Glargine (Lantus) 40 units BID SC Last administered on 02/17/19 20:49; Admin Dose 40 UNITS; Start 02/16/19 at 09:00 Docusate Sodium (Colace Liquid Cup) 200 mg BID NGT Last administered on 02/17/19 20:45; Admin Dose 200 MG; Start 02/17/19 at 09:00 Bisacodyl (Dulcolax Supp) 5 mg DAILY PRN [place] CONSTIPATION; Start 02/17/19 at 10:00 Piperacillin Sod/ Tazobactam Sod 100 ml @ 200 mls/hr Q6 IVPB Last administered on 02/18/19at 05:32; Admin Dose 200 MLS/HR; Start 02/17/19 at 09:30 Vancomycin HCl (Vanco Iv Per Pharmacy) VANCOMYCIN PER PHARMACY PER PROTOCOL XX ; Start 02/17/19 at 09:30 Vancomycin HCl 1.5 gm/Sodium Chloride 250 ml @ 83.333 mls/ hr Q24H IVPB ; Start 02/18/19 at 10:00 Miscellaneous Information (*Rx Drug Level Order Reminder*) VANCOMYCIN TROUGH AT 0900 0900 ONCE XX ; Start 02/20/19 at 09:00; Stop 02/20/19 at 09:01 Potassium Chloride 100 ml @ 50 mls/hr Q2H IVPB Last administered on 02/18/19at 06:54; Admin Dose 50 MLS/HR; Start 02/18/19 at 07:00; Stop 02/18/19 at 10:59 ANTON OZUNA MD Feb 18, 2019 08:53
[2019-02-18] MEDS: VANCOMYCIN HCL 1.5 GM in SOD CHLORIDE 0.9% 250 ML IVPB SCH (10:35)
--- NOTE | 2019-02-18 16:02 | PN ---
DATE: 02/18/2019 SUBJECTIVE: Chart reviewed. Patient is orally intubated, currently on 30% FIO2, saturating 100%. O ff sedation. The patient is awake and responsive. PHYSICAL EXAMINATION: VITAL SIGNS: Blood pressure 153/52, pulse 73, respiration 14, temperature afebrile. HEENT: Pupils are equal and react to light, orally intubated. NECK: Supple, no JVD noted, no cervical adenopathy noted. LUNGS: Decreased breath sounds at the bases. CARDIOVASCULAR: S1, S2 normal. ABDOMEN: Soft, nontender. No organomegaly or masses noted. EXTREMITIES: No clubbing, cyanosis noted. NEUROLOGICAL: More responsive. LABORATORY DATA: ABG shows pH of 7.46, pCO2 of 40, pO2 126. Sodium 146, potassium 3.2, chloride 110 , CO2 of 30, BUN 45, creatinine 1.17, glucose 214. Chest x-ray shows mild interstitial edema. IMPRESSION: 1. Acute respiratory failure, hypoxemic. 2. Congestive heart failure. 3. Question superimposed pneumonia. 4. Severe peripheral vascular disease. 5. Diabetes mellitus. 6. Hypertension. RECOMMENDATIONS: 1. CPAP trial. 2. Continue antibiotics. 3. Diuresis per cardiology. 4. Followup ABG. 5. Discussed with the staff and family in detail. Dictated By: TACO PLEITEZ MD, MA/ELIZA Conf#: [id number] DID#: [id number] CC: WYATT DAVIS MD;*EndCC*
[2019-02-18] MEDS: ATORVASTATIN 80 MG TAB NGT SCH (21:06)
[2019-02-19] VITALS (30 sets, daily range): BP systolic 71–187; BP diastolic 17–106; PULSE 69–170; RESP 16–30
[2019-02-19] MEDS: INSULIN ASPART [NOVOLOG] 3 ML PEN SC SCH ×6 (00:56→21:00)
[2019-02-19] MEDS: BALSAM PERU/CASTOR OIL 60 GM TUBE TOP SCH ×2 (00:56→09:04)
[2019-02-19] MEDS: PIPER-TAZO 3.375 GM IV (PMX) 100 ML IVPB SCH ×4 (00:56→18:20)
[2019-02-19] MEDS: SENNA TAB NGT SCH ×2 (09:00→21:00)
[2019-02-19] MEDS: DOCUSATE SODIUM 10 MG/ML (10ML CUP) NGT SCH ×2 (09:00→21:00)
[2019-02-19] MEDS: POLYETHYLENE GLYCOL 17 GM PACKET NGT SCH (09:00)
[2019-02-19] MEDS: FUROSEMIDE 40 MG INJ IV SCH (09:01)
[2019-02-19] MEDS: FAMOTIDINE 20 MG TAB NGT SCH (09:01)
[2019-02-19] MEDS: POVIDONE IODINE 10% 28.4 GM OINT TOP SCH (09:03)
[2019-02-19] MEDS: DAKINS 0.0125%(1/40) 473 ML SOLUTION TP SCH (09:04)
[2019-02-19] MEDS: ASPIRIN 81 MG TAB PO SCH (09:05)
[2019-02-19] MEDS: CLOPIDOGREL 75 MG TAB NGT SCH (09:10)
[2019-02-19] MEDS: VANCOMYCIN HCL 1.5 GM in SOD CHLORIDE 0.9% 250 ML IVPB SCH (09:35)
[2019-02-19] MEDS: INSULIN GLARGINE [LANTus] (100 UNITS/ML) SYG SC SCH ×2 (09:36→21:00)
--- NOTE | 2019-02-19 09:40 | CONS ---
Assessment/Plan Assessment/Plan Assessment/Plan (Daily) Assessment and recommendations; 1. Patient admitted with CHF exacerbation leading to respiratory failure status post intubation yesterday with stable clinical status. 2. History of severe peripheral vascular disease. 3. Right lower extremity foot ulcer mellitus with multiple organisms grown from wound. 4. Chronic atrial fibrillation. Continue current supportive care. Patient responding well to current treatment regimen. Hold Lasix for 24 hours, because of hypernatremia. Consultation Date/Type/Reason Admit Date/Time Feb 12, 2019 at 04:44 Initial Consult Date 02/13/19 Type of Consult Pulmonary/critical care Patient is a 73-year-old lady who was admitted to the hospital with complaints of shortness of breath. Patient was in respiratory failure and had to be intubated and then transferred to ICU. By the time I saw her, patient is orally intubated and sedated with propofol drip. Patient did not appear to be in any distress whatsoever. Per medical records, no CPR was done. Past medical history; 1. 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 2. Diabetes. 3. Peripheral vascular disease. With multiple right lower extremity surgeries as well. 4. CHF. 5. Chronic steroid use. Diagnosis is unclear. Medications; reviewed. Allergies; as outlined above. Family history, occupational history, social history are not available. Review of system; unable to be obtained. General exam; elderly female, orally intubated, sedated, currently in no distress. Date/Time of Note DATE: 02/19/19 TIME: 09:38 24 HR Interval Summary Free Text/Dictation Patient's condition is stable. Was successfully extubated yesterday afternoon. Patient has remained hemodynamically stable. General exam; elderly woman, awake and appropriately responsive but appearing mildly lethargic. Currently no distress. Exam/Review of Systems Exam Vitals Vital Signs Date Temp Pulse Resp B/P (MAP) Pulse Ox O2 O2 Flow FiO2 Time Delivery Rate 02/19/19 3.0 09:25 02/19/19 75 19 129/56 98 07:00 (80) 02/19/19 99.0 04:00 02/18/19 Nasal 21:00 Cannula 02/18/19 30 15:20 Intake and Output 02/18/19 02/18/19 02/19/19 1515:00 23:00 07:00 IntakeIntake Total 694 ml 412 ml 320 ml OutputOutput Total 1010 ml 600 ml 780 ml BalanceBalance -316 ml -188 ml -460 ml Exam H ENT exam; supple neck, positive JVD. No lymphadenopathy. Midline trachea. No thyromegaly. No neck masses. Chest exam; diminished but clear breath sounds. S1-S2 audible, no murmurs. Regular rhythm. Abdomen exam; soft, protuberant. Nontender. No organomegaly. Bowel sounds are audible. Extremity exam; peripheral edema. Multiple scars involving right lower extremity. Left lower extremity is amputated at the left hip. Dressing applied to right foot. [employer] exam; patient awake follow simple commands but is mildly lethargic. Results Result Diagram: 02/19/19 0430 02/19/19 0430 Results 24hrs Laboratory Tests Test 02/18/19 14:04 02/18/19 15:07 02/18/19 16:49 02/18/19 21:04 Bedside Glucose 133 81 75 Blood Gas Blood arterial Specimen Source Arterial Blood 02/18/2019 3:25:5 Date Drawn 7 PM Arterial Blood pH 7.465 H (Temp corrected) Arterial Blood 41.6 pCO2 (Temp correct) Arterial Blood 99.8 H pO2 (Temp corrected) Arterial Blood 29.3 H HCO3 Arterial Blood 5.0 H Base Excess Arterial Blood 97.6 Oxygen Saturation Dawson Test ACCEPTAB Arterial Blood Right Radial Gas Puncture Site Arterial 0.6 Blood Carboxyhemo globin Arterial Blood 0.1 Methemoglobin Blood Gas A-a O2 65.2 H Differential Oxyhemoglobin 96.9 Percent Blood Gas 37.0 Temperature Blood Gas Actual 24 Respiration Rate Blood Gas VENT - CPAP Modality FiO2 30.0 Blood Gas Low 5.0 PEEP Setting Blood Gas 10 Pressure Support Blood Gas DT Notified Whom Blood Gas 02/18/2019 3:34:3 Notified Time 8 PM Test 02/19/19 00:53 02/19/19 04:30 02/19/19 06:34 02/19/19 08:52 Bedside Glucose 91 92 135 White Blood Count 11.1 #H Red Blood Count 4.56 Hemoglobin 13.2 Hematocrit 43.8 Mean Corpuscular 96.1 Volume Mean Corpuscular 28.9 L Hemoglobin Mean Corpuscular 30.1 L Hemoglobin Concen t Red Cell 13.3 Distribution Width Platelet Count 410 Mean Platelet 11.0 H Volume Immature 0.500 H Granulocytes % Neutrophils % 80.6 H Lymphocytes % 5.5 L Monocytes % 8.0 Eosinophils % 4.8 Basophils % 0.6 Nucleated Red 0.0 Blood Cells % Immature 0.050 H Granulocytes # Neutrophils # 8.9 H Lymphocytes # 0.6 L Monocytes # 0.9 Eosinophils # 0.5 Basophils # 0.1 Nucleated Red 0.0 Blood Cells # Sodium Level 151 H Potassium Level 3.6 Chloride Level 109 Carbon Dioxide 34 H Level Anion Gap 8 Blood Urea 41 H Nitrogen Creatinine 1.03 H Est Glomerular Filtrat Rate mL/min Glucose Level 68 #L Calcium Level 9.4 Phosphorus Level 4.5 Magnesium Level 2.4 Medications Medication Current Medications Ondansetron HCl (Zofran Inj) 4 mg Q6H PRN IV NAUSEA AND/OR VOMITING; Start 02/12/19 at 07:30 Albuterol (Ventolin Hfa) 2 puff Q2H RESP THERAPY PRN INH SHORTNESS OF BREATH; Start 02/12/19 at 07:30 Ipratropium [place] (Atrovent Hfa) 2 puff Q2H RESP THERAPY PRN INH SHORTNESS OF BREATH; Start 02/12/19 at 07:30 Acetaminophen (Tylenol Liquid) 650 mg Q6H PRN PO PAIN LEVEL 1-3 OR FEVER Last administered on 02/17/19at 20:02; Admin Dose 650 MG; Start 02/12/19 at 07:30 Acetaminophen (Tylenol Supp) 650 mg Q4H PRN [place] PAIN LEVEL 1-3 OR FEVER; Start 02/12/19 at 07:30 Lorazepam (Ativan) 1 mg Q2H PRN IV ANXIETY Last administered on 02/19/19at 04:56; Admin Dose 1 MG; Start 02/12/19 at 07:30 Propofol 100 ml @ 2.748 mls/ hr PER PROTOCOL IV Last administered on 02/17/19 01:46; Admin Dose 16.488 MLS/HR; Start 02/12/19 at 07:30 Aspirin (Aspirin) 81 mg DAILY PO Last administered on 02/19/19 09:05; Admin Dose 81 MG; Start 02/12/19 at 09:00 Clopidogrel Bisulfate (plaVIX) 75 mg DAILY NGT Last administered on 02/19/19 09:10; Admin Dose 75 MG; Start 02/12/19 at 09:00 Atorvastatin Calcium (Lipitor) 80 mg QHS NGT Last administered on 02/18/19at 21:06; Admin Dose 80 MG; Start 02/12/19 at 21:00 Miscellaneous Information 1 ea NOTE XX ; Start 02/12/19 at 09:30 Glucose (Glutose) 15 gm Q15M PRN PO DECREASED GLUCOSE; Start 02/12/19 at 09:30 Glucose (Glutose) 22.5 gm Q15M PRN PO DECREASED GLUCOSE; Start 02/12/19 at 09:30 Dextrose (D50w Syringe) 25 ml Q15M PRN IV DECREASED GLUCOSE; Start 02/12/19 at 09:30 Dextrose (D50w Syringe) 50 ml Q15M PRN IV DECREASED GLUCOSE; Start 02/12/19 at 09:30 Glucagon (Glucagen) 1 mg Q15M PRN IM DECREASED GLUCOSE; Start 02/12/19 at 09:30 Glucose (Glutose) 15 gm Q15M PRN BUCCAL DECREASED GLUCOSE; Start 02/12/19 at 09:30 Insulin Aspart (Novolog Insulin Pen) NOVOLOG *MODERATE* ALGORI... Q4 SC Last administered on 02/18/19at 08:48; Admin Dose 4 UNIT; Start 02/12/19 at 23:07 Fentanyl 100 ml @ 2.5 mls/hr TITRATE IV Last administered on 02/17/19at 01:54; Admin Dose 2.5 MLS/HR; Start 02/13/19 at 15:00 Carvedilol (Coreg) 25 mg BID PO Last administered on 02/19/19at 09:02; Admin Dose 25 MG; Start 02/14/19 at 21:00 Sodium Hypochlorite (Dakins Diluted (40)) 1 applic DAILY TP Last administered on 02/19/19 09:04; Admin Dose 1 APPLIC; Start 02/15/19 at 09:00 Famotidine (Pepcid) 20 mg Q12 NGT Last administered on 02/19/19 09:01; Admin Dose 20 MG; Start 02/14/19 at 21:00 Povidone Iodine (Povidone-Iodine) 1 applic DAILY TOP Last administered on 02/19/19at 09:03; Admin Dose 1 APPLIC; Start 02/14/19 at 20:00 Furosemide (Lasix) 40 mg BID IV Last administered on 02/19/19 09:01; Admin Dose 40 MG; Start 02/15/19 at 21:00 Senna (Senokot) 2 tab BID NGT Last administered on 02/18/19at 20:39; Admin Dose 2 TAB; Start 02/15/19 at 21:00 Polyethylene Glycol (Miralax) 17 gm DAILY NGT Last administered on 02/18/19 08:45; Admin Dose 17 GM; Start 02/16/19 at 09:00 Insulin Glargine (Lantus) 40 units BID SC Last administered on 02/18/19at 21:12; Admin Dose 40 UNITS; Start 02/16/19 at 09:00 Docusate Sodium (Colace Liquid Cup) 200 mg BID NGT Last administered on 9at 20:38; Admin Dose 200 MG; Start 02/17/19 at 09:00 Bisacodyl (Dulcolax Supp) 5 mg DAILY PRN [place] CONSTIPATION; Start 02/17/19 at 10:00 Piperacillin Sod/ Tazobactam Sod 100 ml @ 200 mls/hr Q6 IVPB Last administered on 02/19/19at 06:28; Admin Dose 200 MLS/HR; Start 02/17/19 at 09:30 Vancomycin HCl (Vanco Iv Per Pharmacy) VANCOMYCIN PER PHARMACY PER PROTOCOL XX ; Start 02/17/19 at 09:30 Vancomycin HCl 1.5 gm/Sodium Chloride 250 ml @ 83.333 mls/ hr Q24H IVPB Last administered on 02/18/19at 10:35; Admin Dose 83.333 MLS/HR; Start 02/18/19 at 10:00 Miscellaneous Information (*Rx Drug Level Order Reminder*) VANCOMYCIN TROUGH AT 0900 0900 ONCE XX ; Start 02/20/19 at 09:00; Stop 02/20/19 at 09:01 SANTHOSH GABRIEL Feb 19, 2019 09:40
--- NOTE | 2019-02-19 10:18 | PN ---
Date/Time of Note Date/Time of Note DATE: 02/19/19 TIME: 10:05 Assessment/Plan VTE Prophylaxis Risk score (from Nsg)>0 risk: 11 SCD applied (from Nsg): Yes Pharmacological prophylaxis: other Lines/Catheters IV Catheter Type (from Nrsg): Peripheral IV Urinary Cath still in place: Yes Reason Cath still needed: urinary retention Assessment/Plan Hospital Course S: Patient was extubated yesterday. Per nursing staff, became agitated last night and had to receive Ativan. Seen by pulmonary team this morning. O: VS- see below PE: Gen: Morbidly obese woman lying in bed, no acute distress HEENT: Moist mucous membranes. Neck: Supple, no lymphadenopathy. Card: Regular rate and rhythm, no murmurs. Pulm: Slightly distant breath sounds bilaterally, no crackles Abd: Soft, nontender, nondistended. Hypoactive bowel sounds. 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 R leg with well healed bypass scar below the knee. Skin: R lower leg erythema has resolved. Right great toe medial ulcer, clean based, no drainage, no surrounding erythema. Assessment/Plan: 73 yo morbidly obese woman history of peripheral vascular disease, diabetes type II, CHF, likely COPD presents with acute respiratory failure due to CHF exacerbation. #Sepsis-fevers resolved now, white blood cell count trending down. Patient developed fever to 102 on 02/17. Wound culture positive for polymicrobial growth -For now continue empiric vanco and zosyn, blood and urine cultures sent. -Continue wound care as needed for the right toe ulcer #Acute respiratory failure-again extubated yesterday. CTPA negative for PE- Likely CHF exacerbation -Patient has been on gentle diuresis until this morning, Lasix held because of hypernatremia, follow pulmonary recommendations #Peripheral vascular disease - Cont aspirin, plavix, statin #Diabetic/vascular right foot ulcer- Patient also has outpatient vascular followup- Patient has failed R sided revascularization in the past; per Dr Naidu repeat attempt at revascularization would be unwise. Wound swab was done which is positive for some bacteria. - Continue supportive treatment with local wound care and antibiotics for now, no debridement planned. -Follow-up final culture results #VICTOR M- May have been due to unstable hemodynamics on admission; or contrast load from CTPA- Now resolving. -Monitor BUN/creatinine levels #Diabetes type II, insulin dependent. Sugars are stable -Follow-up A1c, continue aspart sliding scale, glargine 20 qhs. #CHF -For now continue carvedilol. #History of DVT- LE duplex negative for DVT. 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 GI: famotidine DVT: None Critical care time spent in patient care today equals 50 minutes Result Diagram: 02/19/19 0430 02/19/19 0430 Results 24hrs Laboratory Tests Test 02/18/19 14:04 02/18/19 15:07 02/18/19 16:49 02/18/19 21:04 Bedside Glucose 133 81 75 Blood Gas Blood arterial Specimen Source Arterial Blood 02/18/2019 3:25:5 Date Drawn 7 PM Arterial Blood pH 7.465 H (Temp corrected) Arterial Blood 41.6 pCO2 (Temp correct) Arterial Blood 99.8 H pO2 (Temp corrected) Arterial Blood 29.3 H HCO3 Arterial Blood 5.0 H Base Excess Arterial Blood 97.6 Oxygen Saturation Dawson Test ACCEPTAB Arterial Blood Right Radial Gas Puncture Site Arterial 0.6 Blood Carboxyhemo globin Arterial Blood 0.1 Methemoglobin Blood Gas A-a O2 65.2 H Differential Oxyhemoglobin 96.9 Percent Blood Gas 37.0 Temperature Blood Gas Actual 24 Respiration Rate Blood Gas VENT - CPAP Modality FiO2 30.0 Blood Gas Low 5.0 PEEP Setting Blood Gas 10 Pressure Support Blood Gas DT Notified Whom Blood Gas 02/18/2019 3:34:3 Notified Time 8 PM Test 02/19/19 00:53 02/19/19 04:30 02/19/19 06:34 02/19/19 08:52 Bedside Glucose 91 92 135 White Blood Count 11.1 #H Red Blood Count 4.56 Hemoglobin 13.2 Hematocrit 43.8 Mean Corpuscular 96.1 Volume Mean Corpuscular 28.9 L Hemoglobin Mean Corpuscular 30.1 L Hemoglobin Concen t Red Cell 13.3 Distribution Width Platelet Count 410 Mean Platelet 11.0 H Volume Immature 0.500 H Granulocytes % Neutrophils % 80.6 H Lymphocytes % 5.5 L Monocytes % 8.0 Eosinophils % 4.8 Basophils % 0.6 Nucleated Red 0.0 Blood Cells % Immature 0.050 H Granulocytes # Neutrophils # 8.9 H Lymphocytes # 0.6 L Monocytes # 0.9 Eosinophils # 0.5 Basophils # 0.1 Nucleated Red 0.0 Blood Cells # Sodium Level 151 H Potassium Level 3.6 Chloride Level 109 Carbon Dioxide 34 H Level Anion Gap 8 Blood Urea 41 H Nitrogen Creatinine 1.03 H Est Glomerular Filtrat Rate mL/min Glucose Level 68 #L Calcium Level 9.4 Phosphorus Level 4.5 Magnesium Level 2.4 Exam/Review of Systems Exam Vitals Vital Signs Date Temp Pulse Resp B/P (MAP) Pulse Ox O2 O2 Flow FiO2 Time Delivery Rate 02/19/19 3.0 09:25 02/19/19 77 29 165/49 98 Nasal 09:00 (87) Cannula 02/19/19 97.5 08:00 02/18/19 30 15:20 Intake and Output 02/18/19 02/18/19 02/19/19 1515:00 23:00 07:00 IntakeIntake Total 694 ml 412 ml 320 ml OutputOutput Total 1010 ml 600 ml 780 ml BalanceBalance -316 ml -188 ml -460 ml Results Results 24hrs Laboratory Tests Test 02/18/19 14:04 02/18/19 15:07 02/18/19 16:49 02/18/19 21:04 Bedside Glucose 133 81 75 Blood Gas Blood arterial Specimen Source Arterial Blood 02/18/2019 3:25:5 Date Drawn 7 PM Arterial Blood pH 7.465 H (Temp corrected) Arterial Blood 41.6 pCO2 (Temp correct) Arterial Blood 99.8 H pO2 (Temp corrected) Arterial Blood 29.3 H HCO3 Arterial Blood 5.0 H Base Excess Arterial Blood 97.6 Oxygen Saturation Dawson Test ACCEPTAB Arterial Blood Right Radial Gas Puncture Site Arterial 0.6 Blood Carboxyhemo globin Arterial Blood 0.1 Methemoglobin Blood Gas A-a O2 65.2 H Differential Oxyhemoglobin 96.9 Percent Blood Gas 37.0 Temperature Blood Gas Actual 24 Respiration Rate Blood Gas VENT - CPAP Modality FiO2 30.0 Blood Gas Low 5.0 PEEP Setting Blood Gas 10 Pressure Support Blood Gas DT Notified Whom Blood Gas 02/18/2019 3:34:3 Notified Time 8 PM Test 02/19/19 00:53 02/19/19 04:30 02/19/19 06:34 02/19/19 08:52 Bedside Glucose 91 92 135 White Blood Count 11.1 #H Red Blood Count 4.56 Hemoglobin 13.2 Hematocrit 43.8 Mean Corpuscular 96.1 Volume Mean Corpuscular 28.9 L Hemoglobin Mean Corpuscular 30.1 L Hemoglobin Concen t Red Cell 13.3 Distribution Width Platelet Count 410 Mean Platelet 11.0 H Volume Immature 0.500 H Granulocytes % Neutrophils % 80.6 H Lymphocytes % 5.5 L Monocytes % 8.0 Eosinophils % 4.8 Basophils % 0.6 Nucleated Red 0.0 Blood Cells % Immature 0.050 H Granulocytes # Neutrophils # 8.9 H Lymphocytes # 0.6 L Monocytes # 0.9 Eosinophils # 0.5 Basophils # 0.1 Nucleated Red 0.0 Blood Cells # Sodium Level 151 H Potassium Level 3.6 Chloride Level 109 Carbon Dioxide 34 H Level Anion Gap 8 Blood Urea 41 H Nitrogen Creatinine 1.03 H Est Glomerular Filtrat Rate mL/min Glucose Level 68 #L Calcium Level 9.4 Phosphorus Level 4.5 Magnesium Level 2.4 Medications Medication Current Medications Ondansetron HCl (Zofran Inj) 4 mg Q6H PRN IV NAUSEA AND/OR VOMITING; Start 02/12/19 at 07:30 Albuterol (Ventolin Hfa) 2 puff Q2H RESP THERAPY PRN INH SHORTNESS OF BREATH; Start 02/12/19 at 07:30 Ipratropium Lejunior (Atrovent Hfa) 2 puff Q2H RESP THERAPY PRN INH SHORTNESS OF BREATH; Start 02/12/19 at 07:30 Acetaminophen (Tylenol Liquid) 650 mg Q6H PRN PO PAIN LEVEL 1-3 OR FEVER Last administered on 02/17/19at 20:02; Admin Dose 650 MG; Start 02/12/19 at 07:30 Acetaminophen (Tylenol Supp) 650 mg Q4H PRN [place] PAIN LEVEL 1-3 OR FEVER; Start 02/12/19 at 07:30 Lorazepam (Ativan) 1 mg Q2H PRN IV ANXIETY Last administered on 02/19/19at 04:56; Admin Dose 1 MG; Start 02/12/19 at 07:30 Propofol 100 ml @ 2.748 mls/ hr PER PROTOCOL IV Last administered on 02/17/19at 01:46; Admin Dose 16.488 MLS/HR; Start 02/12/19 at 07:30 Aspirin (Aspirin) 81 mg DAILY PO Last administered on 02/19/19 09:05; Admin Dose 81 MG; Start 02/12/19 at 09:00 Clopidogrel Bisulfate (plaVIX) 75 mg DAILY NGT Last administered on 02/19/19 09:10; Admin Dose 75 MG; Start 02/12/19 at 09:00 Atorvastatin Calcium (Lipitor) 80 mg QHS NGT Last administered on 02/18/19 21:06; Admin Dose 80 MG; Start 02/12/19 at 21:00 Miscellaneous Information 1 ea NOTE XX ; Start 02/12/19 at 09:30 Glucose (Glutose) 15 gm Q15M PRN PO DECREASED GLUCOSE; Start 02/12/19 at 09:30 Glucose (Glutose) 22.5 gm Q15M PRN PO DECREASED GLUCOSE; Start 02/12/19 at 09:30 Dextrose (D50w Syringe) 25 ml Q15M PRN IV DECREASED GLUCOSE; Start 02/12/19 at 09:30 Dextrose (D50w Syringe) 50 ml Q15M PRN IV DECREASED GLUCOSE; Start 02/12/19 at 09:30 Glucagon (Glucagen) 1 mg Q15M PRN IM DECREASED GLUCOSE; Start 02/12/19 at 09:30 Glucose (Glutose) 15 gm Q15M PRN BUCCAL DECREASED GLUCOSE; Start 02/12/19 at 09:30 Insulin Aspart (Novolog Insulin Pen) NOVOLOG *MODERATE* ALGORI... Q4 SC Last administered on 02/18/19at 08:48; Admin Dose 4 UNIT; Start 02/12/19 at 23:07 Fentanyl 100 ml @ 2.5 mls/hr TITRATE IV Last administered on 02/17/19 01:54; Admin Dose 2.5 MLS/HR; Start 02/13/19 at 15:00 Carvedilol (Coreg) 25 mg BID PO Last administered on 02/19/19 09:02; Admin Dose 25 MG; Start 02/14/19 at 21:00 Sodium Hypochlorite (Dakins Diluted (40)) 1 applic DAILY TP Last administered on 02/19/19 09:04; Admin Dose 1 APPLIC; Start 02/15/19 at 09:00 Famotidine (Pepcid) 20 mg Q12 NGT Last administered on 02/19/19 09:01; Admin Dose 20 MG; Start 02/14/19 at 21:00 Povidone Iodine (Povidone-Iodine) 1 applic DAILY TOP Last administered on 02/19/19 09:03; Admin Dose 1 APPLIC; Start 02/14/19 at 20:00 Senna (Senokot) 2 tab BID NGT Last administered on 02/18/19 20:39; Admin Dose 2 TAB; Start 02/15/19 at 21:00 Polyethylene Glycol (Miralax) 17 gm DAILY NGT Last administered on 02/18/19 08:45; Admin Dose 17 GM; Start 02/16/19 at 09:00 Insulin Glargine (Lantus) 40 units BID SC Last administered on 02/19/19 09:36; Admin Dose 40 UNITS; Start 02/16/19 at 09:00 Docusate Sodium (Colace Liquid Cup) 200 mg BID NGT Last administered on 02/18/19 20:38; Admin Dose 200 MG; Start 02/17/19 at 09:00 Bisacodyl (Dulcolax Supp) 5 mg DAILY PRN [place] CONSTIPATION; Start 02/17/19 at 10:00 Piperacillin Sod/ Tazobactam Sod 100 ml @ 200 mls/hr Q6 IVPB Last administered on 02/19/19 06:28; Admin Dose 200 MLS/HR; Start 02/17/19 at 09:30 Vancomycin HCl (Vanco Iv Per Pharmacy) VANCOMYCIN PER PHARMACY PER PROTOCOL XX ; Start 02/17/19 at 09:30 Vancomycin HCl 1.5 gm/Sodium Chloride 250 ml @ 83.333 mls/ hr Q24H IVPB Last administered on 02/19/19 09:35; Admin Dose 83.333 MLS/HR; Start 02/18/19 at 10:00 Miscellaneous Information (*Rx Drug Level Order Reminder*) VANCOMYCIN TROUGH AT 0900 0900 ONCE XX ; Start 02/20/19 at 09:00; Stop 02/20/19 at 09:01 PATSY JONES Feb 19, 2019 10:16
[2019-02-19] MEDS ORDERED: ALBUTEROL/IPRATROPIUM (NEB) 3 ML AMP HHN PRN (16:00)
[2019-02-19] MEDS ORDERED: PROPOFOL 100 ML ONE (19:19)
[2019-02-19] MEDS ORDERED: LORAZEPAM 2 MG INJ IV PRN (19:30)
--- NOTE | 2019-02-19 19:33 | QN ---
Documentation Comment I was asked by her physician to intubate the patient due to acute respiratory failure. She was extubated yesterday and became dyspneic went to acute respiratory failure Endotracheal Intubation by me: Pre assessment performed. See preceding note for details. Pre-oxygenation performed with 100% oxygen RSI: Performed w/o complication or hypoxic events. Medications as ordered. Blade: C MAC ET Tube: 7.5cm Depth: 21 cm at the lip Intubation confirmed by colorimetric CO2, equal breath sounds, quiet over the stomach. NGT requested CXR is pending and will be reviewed by her physician MALACHI HORVATH MD Feb 19, 2019 19:33
[2019-02-19] MEDS: PROPOFOL 100 ML IV SCH (20:26)
[2019-02-19] MEDS ORDERED: MIDAZOLAM (DRIP) 50 mg/50 mL 50 ML IV SCH (21:00)
[2019-02-20] VITALS (56 sets, daily range): BP systolic 101–161; BP diastolic 45–72; PULSE 68–81; RESP 14–21
[2019-02-20] MEDS: PIPER-TAZO 3.375 GM IV (PMX) 100 ML IVPB SCH ×4 (00:28→20:04)
[2019-02-20] MEDS: ATORVASTATIN 80 MG TAB NGT SCH ×2 (00:28→20:04)
[2019-02-20] MEDS: BALSAM PERU/CASTOR OIL 60 GM TUBE TOP SCH ×3 (00:30→20:20)
[2019-02-20] MEDS: INSULIN ASPART [NOVOLOG] 3 ML PEN SC SCH ×6 (00:30→20:13)
[2019-02-20] MEDS: INSULIN GLARGINE [LANTus] (100 UNITS/ML) SYG SC SCH ×3 (00:33→20:18)
[2019-02-20] MEDS: PROPOFOL 100 ML IV SCH ×3 (05:15→19:05)
--- NOTE | 2019-02-20 08:51 | RADRPT ---
Echocardiogram Report Patient Name: JOE NUNEZPatient ID: [id number] : 1945 (73y 5m)Study Date: 02/20/2019 7:41:30 AM Gender: FAccession #: [id number] Tech: Steph Estrella TORI Location: [id number] Ref.Physician: PATSY JONES Height(Cm): BSA: Weight(Kg): Quality: Technically Difficult StudyOrder Physician: PATSY JONES Account #: Procedures: Echocardiographic Report: Transthoracic echocardiogram with complete 2D, M-Mode, and doppler examination. Indications: Congestive Heart Failure. Measurements: 2D/M Mode Doppler Measurement Value Normal Range Measurement Value Normal Range LVIDd 2D 4.3 [ 3.8 - 5.2 ] cm AV Peak Andrew 1.5 [ 100.0 - 170.0 ] cm/sec LVIDs 2D 2.6 [ 2.2 - 3.5 ] cm AV Peak PG 9.0 [ 2.0 - 9.0 ] mmHg LVPWd 2D 1.1 [ 0.6 - 0.9 ] cm LVOT Peak Andrew 0.7 [ 70.0 - 110.0 ] cm/sec IVSd 2D 1.1 [ 0.6 - 0.9 ] cm LVOT Peak PG 2.0 [ 2.0 - 6.0 ] mmHg AoR Diam 2D 2.7 [ 2.3 - 3.1 ] cm MV E Peak Andrew 0.5 [ 60.0 - 130.0 ] cm/sec EDV 2D 82.2 [ 46.0 - 106.0 ] ml MV A Peak Andrew 0.8 [ 100.0 - 120.0 ] cm/sec ESV 2D 24.6 [ 14.0 - 42.0 ] ml MV E/A 0.6 [ 0.8 - 1.5 ] ratio EF 2D 70.1 [ 54.0 - 74.0 ] percent MV Decel Time 169 [ 104 - 258 ] msec LA Dimen 2D 3.5 [ 2.7 - 3.8 ] cm Lat E` Andrew 0.0 [ 10.0 - 15.0 ] cm/sec Lateral E/E` 10.5 [ 1.0 - 2.0 ] ratio Med E` Andrew 0.0 cm/sec MV E/A 0.6 [ 0.8 - 1.5 ] ratio Findings: Left Ventricle: Normal left ventricular cavity size. Mild concentric left ventricular hypertrophy. Moderate left ventricular systolic dysfunction. Ejection fraction is visually estimated at 35 %. Tissue Doppler/Mitral Doppler indices are consistent with impaired relaxation (Stage I diastolic dysfunction). Multiple segmental wall motion abnormalities. Right Ventricle: Normal right ventricular size. Normal right ventricular systolic function. Left Atrium: The left atrium is normal in size. Right Atrium: The right atrium is normal in size. Mitral Valve: Mitral valve leaflets appear mildly thickened. Mild mitral annular calcification. Trace mitral regurgitation. Aortic Valve: No significant aortic stenosis or insufficiency. Aortic valve not well visualized. Aortic sclerosis without significant stenosis. Tricuspid Valve: Normal appearance and function of the tricuspid valve with trace physiologic regurgitation. Normal right ventricular systolic pressure. Pulmonic Valve: Pulmonic valve not well visualized. Pericardium: Normal pericardium with no significant pericardial effusion. Aorta: Normal aortic root. IVC: Inferior vena cava without respiratory collapse, however, patient on ventilator. Conclusions: Normal left ventricular cavity size. Mild concentric left ventricular hypertrophy. Moderate left ventricular systolic dysfunction. Ejection fraction is visually estimated at 35 %. Tissue Doppler/Mitral Doppler indices are consistent with impaired relaxation (Stage I diastolic dysfunction). Multiple segmental wall motion abnormalities. Mitral valve leaflets appear mildly thickened. Mild mitral annular calcification. Trace mitral regurgitation. Normal appearance and function of the tricuspid valve with trace physiologic regurgitation. Normal right ventricular systolic pressure. suboptimal study. Electronically Signed By: Nelson Barrera 2019-02-20 08:51:01 PDT
[2019-02-20] MEDS: SENNA TAB NGT SCH ×2 (09:00→20:05)
[2019-02-20] MEDS: POLYETHYLENE GLYCOL 17 GM PACKET NGT SCH (09:00)
[2019-02-20] MEDS: DOCUSATE SODIUM 10 MG/ML (10ML CUP) NGT SCH ×2 (09:00→20:05)
[2019-02-20] MEDS: CLOPIDOGREL 75 MG TAB NGT SCH (09:10)
[2019-02-20] MEDS: ASPIRIN 81 MG TAB PO SCH (09:10)
[2019-02-20] MEDS: POVIDONE IODINE 10% 28.4 GM OINT TOP SCH (09:10)
[2019-02-20] MEDS: DAKINS 0.0125%(1/40) 473 ML SOLUTION TP SCH (09:11)
--- NOTE | 2019-02-20 09:14 | CONS ---
Assessment/Plan Assessment/Plan Hospital Course (Demo Recall) Acute hypoxemic respiratory failure status post intubation now ventilatory dependent Congestive heart failure: Acute on chronic secondary systolic heart failure Sepsis Coronary artery disease with history of DE History of ischemic cardiomyopathy ejection fraction of 35% History of multiple PCI Severe peripheral vascular disease status post left leg amputation as well as right leg severe PAD Hypertension diabetes dyslipidemia Hyponatremia Acute kidney injury Recommendations: Vent support respiratory care will be continued managed as per pulmonary. Discussed with the physician: Dr. Jimenez Continue with aspirin and Plavix diabetic control as per internal medicine We will resume the carvedilol Antibiotic management as per internal medicine ID recommendations DVT prophylaxis GI prophylaxis as per internal medicine Continue with ICU care Diuretics on hold not due to hyponatremia. We will adjusted daily as needed FREDY inhibitor/ARB is on hold due to acute renal failure will resume once it stabilizes Thank you for his referral. We will continue to follow along with you YOGI NICOLAS MD [facility] Consultation Date/Type/Reason Admit Date/Time Feb 12, 2019 at 04:44 Date of Consultation: Feb 20, 2019 Type of Consult Cardiology Reason for Consultation CHF Requesting Provider: PATSY JONES Date/Time of Note DATE: 02/20/19 TIME: 09:06 Hx of Present Illness Interventional cardiology consultation note Chief complaint: Shortness of breath Reason for consult: Congestive heart failure, respiratory failure History of present illness: Thank you for this referral. History was obtained from review of the chart discussion with the physician and staff. Patient also known to me from previous admission to [facility] This is an unfortunate 73-year-old pleasant female with multiple complicated medical history who was admitted initially with increasing shortness of breath. Patient had to be intubated. Patient was noted to be in congestive heart failure. She was diuresed and was able to successfully extubated. However she had to be reintubated again currently intubated on the vent and unresponsive. Echocardiogram was done which was personally with ejection pressure no more than 35%. Patient also has multiple infection including wound infection Allergies: Reportedly to iodine and heparin Medications were reviewed as per medical reconciliation sheet Family history: No reported history of early coronary artery disease Social history: Ex-smoker Past medical history: Coronary artery disease status of multiple PCI, severe ischemic cardiomyopathy, severe peripheral vascular disease status post multiple lower extremity revascularization as well as left leg complete amputation from the hip site. Diabetes hypertension obesity chronic kidney disease Review of system: Patient denies all others except for above-mentioned Past Medical History Home Meds Reported Medications Insulin Glargine,Hum.rec.anlog (Basaglar Kwikpen U-100) 100 Unit/1 Ml Insuln.pen, 0-12 UNIT SC QHS for PER SLIDING SCALE, EA 02/12/19 Insulin Aspart* (Novolog Insulin Pen*) 100 Unit/Ml Soln, 0-12 SC .SLIDING SCALE AC, EA 02/12/19 Dulaglutide (Trulicity) 1.5 Mg/0.5 Ml Pen.injctr, 1.5 MG SQ WEEKLY 02/12/19 Aspirin* (Aspirin* Chew) 81 Mg Tab.chew, 81 MG PO DAILY, TAB.CHEW 02/12/19 Clopidogrel Bisulfate (Clopidogrel) 75 Mg Tablet, 1 TAB ORAL DAILY 02/12/19 Tramadol HCl (Tramadol HCl) 50 Mg Tablet, 1 TAB ORAL Q6 PRN for PAIN LEVEL 4-6 02/12/19 Arginine Hcl (Arginine Hcl) 1 Gm Powder, 1 GM MC DAILY 02/12/19 Sacubitril/Valsartan (Entresto 49 mg-51 mg Tablet) 1 Each Tablet, 1 TAB ORAL DAILY 02/12/19 Atorvastatin* (Atorvastatin*) 80 Mg Tablet, 1 TAB ORAL QHS 02/12/19 Carvedilol* (Carvedilol*) 25 Mg Tablet, 1 TAB ORAL BID 02/12/19 Spironolactone* (Aldactone*) 25 Mg Tablet, 12.5 MG PO QAM, #60 TAB 02/12/19 Ampicillin Sodium-Sulbactam Sodium (Unasyn*) 3 Gm Soln, 3 GM IVPB Q6, VIAL 02/12/19 Medications Current Medications Ondansetron HCl (Zofran Inj) 4 mg Q6H PRN IV NAUSEA AND/OR VOMITING; Start 02/12/19 at 07:30 Ipratropium [place] (Atrovent Hfa) 2 puff Q2H RESP THERAPY PRN INH SHORTNESS OF BREATH; Start 02/12/19 at 07:30 Acetaminophen (Tylenol Liquid) 650 mg Q6H PRN PO PAIN LEVEL 1-3 OR FEVER Last administered on 02/17/19at 20:02; Admin Dose 650 MG; Start 02/12/19 at 07:30 Acetaminophen (Tylenol Supp) 650 mg Q4H PRN [place] PAIN LEVEL 1-3 OR FEVER; Start 02/12/19 at 07:30 Aspirin (Aspirin) 81 mg DAILY PO Last administered on 02/19/19at 09:05; Admin Dose 81 MG; Start 02/12/19 at 09:00 Clopidogrel Bisulfate (plaVIX) 75 mg DAILY NGT Last administered on 02/19/19at 09:10; Admin Dose 75 MG; Start 02/12/19 at 09:00 Atorvastatin Calcium (Lipitor) 80 mg QHS NGT Last administered on 02/20/19at 00:28; Admin Dose 80 MG; Start 02/12/19 at 21:00 Miscellaneous Information 1 ea NOTE XX ; Start 02/12/19 at 09:30 Glucose (Glutose) 15 gm Q15M PRN PO DECREASED GLUCOSE; Start 02/12/19 at 09:30 Glucose (Glutose) 22.5 gm Q15M PRN PO DECREASED GLUCOSE; Start 02/12/19 at 09:30 Dextrose (D50w Syringe) 25 ml Q15M PRN IV DECREASED GLUCOSE; Start 02/12/19 at 09:30 Dextrose (D50w Syringe) 50 ml Q15M PRN IV DECREASED GLUCOSE; Start 02/12/19 at 09:30 Glucagon (Glucagen) 1 mg Q15M PRN IM DECREASED GLUCOSE; Start 02/12/19 at 09:30 Glucose (Glutose) 15 gm Q15M PRN BUCCAL DECREASED GLUCOSE; Start 02/12/19 at 09:30 Insulin Aspart (Novolog Insulin Pen) NOVOLOG *MODERATE* ALGORI... Q4 SC Last administered on 02/19/19at 12:50; Admin Dose 2 UNIT; Start 02/12/19 at 23:07 Carvedilol (Coreg) 25 mg BID PO Last administered on 02/19/19 09:02; Admin Dose 25 MG; Start 02/14/19 at 21:00; Status Hold Sodium Hypochlorite (Dakins Diluted ()) 1 applic DAILY TP Last administered on 02/19/19at 09:04; Admin Dose 1 APPLIC; Start 02/15/19 at 09:00 Povidone Iodine (Povidone-Iodine) 1 applic DAILY TOP Last administered on 02/19/19at 09:03; Admin Dose 1 APPLIC; Start 02/14/19 at 20:00 Senna (Senokot) 2 tab BID NGT Last administered on 02/18/19at 20:39; Admin Dose 2 TAB; Start 02/15/19 at 21:00 Polyethylene Glycol (Miralax) 17 gm DAILY NGT Last administered on 02/18/19at 08:45; Admin Dose 17 GM; Start 02/16/19 at 09:00 Docusate Sodium (Colace Liquid Cup) 200 mg BID NGT Last administered on 02/18at 20:38; Admin Dose 200 MG; Start 02/17/19 at 09:00 Bisacodyl (Dulcolax Supp) 5 mg DAILY PRN [place] CONSTIPATION; Start 02/17/19 at 10:00 Piperacillin Sod/ Tazobactam Sod 100 ml @ 200 mls/hr Q6 IVPB Last administered on 02/20/19at 05:14; Admin Dose 200 MLS/HR; Start 02/17/19 at 09:30 Vancomycin HCl (Vanco Iv Per Pharmacy) VANCOMYCIN PER PHARMACY PER PROTOCOL XX ; Start 02/17/19 at 09:30 Vancomycin HCl 1.5 gm/Sodium Chloride 250 ml @ 83.333 mls/ hr Q24H IVPB Last administered on 02/19/19at 09:35; Admin Dose 83.333 MLS/HR; Start 02/18/19 at 10:00 Insulin Glargine (Lantus) 36 units BID SC Last administered on 02/20/19at 00:33; Admin Dose 36 UNITS; Start 02/19/19 at 21:00 Albuterol/ Ipratropium (Duoneb) 3 ml Q2H RESP THERAPY PRN HHN SHORTNESS OF BREATH; Start 02/19/19 at 19:00 Lorazepam (Ativan) 0.5 mg Q12H PRN IV ANXIETY; Start 02/19/19 at 19:30 Famotidine (Pepcid Iv) 20 mg DAILY IV ; Start 02/20/19 at 09:00 Propofol 100 ml @ 2.748 mls/ hr Q12H IV Last administered on 02/19/19at 20:26; Admin Dose 2.748 MLS/HR; Start 02/19/19 at 19:30 Midazolam HCl 50 ml @ 1 mls/hr TITRATE IV ; Start 02/19/19 at 21:00 Allergies: Coded Allergies: heparin (Verified Allergy, Unknown, 02/12/19) Uncoded Allergies: IODINE (Allergy, Unknown, 02/12/19) Past Surgical History Past Surgical Hx: other (Unknown) Social History Alcohol Use: none Smoking Status: Current every day smoker Drug Use: none Exam/Review of Systems Vital Signs Vitals Vital Signs Date Temp Pulse Resp B/P (MAP) Pulse Ox O2 O2 Flow FiO2 Time Delivery Rate 02/20/19 100.0 81 17 148/70 95 [place] 08:00 (96) l Ventilato r 02/20/19 30 06:22 02/19/19 3.0 17:00 Intake and Output 02/19/19 02/19/19 02/20/19 1515:00 23:00 07:00 IntakeIntake Total 770 ml 124.839 ml 618.472 ml OutputOutput Total 1250 ml 330 ml 210 ml BalanceBalance -480 ml -205.161 ml 408.472 ml Exam Exam General: Obese female status post intubation on the ventilator HEENT: NC/AT. pupils are equal. round. NECK: Unable to assess for JVD. no stridor. CV: RRR. systolic murmur; no gallop or rubs. PULM: no wheezing + mild rhonchi. 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 Right leg wound noted neuro: Sedated. Psych: calm rectal: deferred : Deferred Echocardiogram was personally reviewed which shows: Normal left ventricular cavity size. Mild concentric left ventricular hypertrophy. Moderate left ventricular systolic dysfunction. Ejection fraction is visually estimated at 35 %. Tissue Doppler/Mitral Doppler indices are consistent with impaired relaxation (Stage I diastolic dysfunction). Multiple segmental wall motion abnormalities. Mitral valve leaflets appear mildly thickened. Mild mitral annular calcification. Trace mitral regurgitation. Normal appearance and function of the tricuspid valve with trace physiologic regurgitation. Normal right ventricular systolic pressure. suboptimal study. Chest x-ray done 02/19/2019 shows: There is mild atelectasis at the lung bases, unchanged. Mild pulmonary edema is unchanged. The heart size is normal. There are small bilateral pleural effusions. There is no pneumothorax. Labs Result Diagram: 02/20/19 0450 02/20/19 0450 Results 24hrs Laboratory Tests Test 02/19/19 12:42 02/19/19 16:52 02/19/19 19:17 02/19/19 20:30 Bedside Glucose 176 133 166 Blood Gas Blood arterial Specimen Source Arterial Blood 02/19/2019 9:10:5 Date Drawn 6 PM Arterial Blood pH 7.465 H (Temp corrected) Arterial Blood 44.9 pCO2 (Temp correct) Arterial Blood 446.3 H pO2 (Temp corrected) Arterial Blood 31.6 H HCO3 Arterial Blood 6.9 H Base Excess Arterial Blood 99.3 Oxygen Saturation Dawson Test ACCEPTAB Arterial Blood Right Radial Gas Puncture Site Arterial 0.6 Blood Carboxyhemo globin Arterial Blood 0.1 Methemoglobin Blood Gas A-a O2 221.8 H Differential Oxyhemoglobin 98.6 Percent Blood Gas 37.0 Temperature Blood Gas 16.0 Respiration Rate Blood Gas Actual 19 Respiration Rate Blood Gas VENT - AC Modality FiO2 100.0 Blood Gas Tidal 500.0 Volume Blood Gas Low 5.0 PEEP Setting Blood Gas S.H. Notified Whom Blood Gas 02/19/2019 9:15:5 Notified Time 8 PM Test 02/20/19 00:27 02/20/19 04:50 02/20/19 05:18 02/20/19 07:00 Bedside Glucose 85 112 White Blood Count 8.8 # Red Blood Count 4.18 L Hemoglobin 12.3 Hematocrit 40.0 Mean Corpuscular 95.7 Volume Mean Corpuscular 29.4 Hemoglobin Mean Corpuscular 30.8 L Hemoglobin Concen t Red Cell 13.0 Distribution Width Platelet Count 426 H Mean Platelet 11.1 H Volume Immature 0.500 H Granulocytes % Neutrophils % 75.9 Lymphocytes % 9.7 L Monocytes % 11.0 Eosinophils % 2.2 Basophils % 0.7 Nucleated Red 0.0 Blood Cells % Immature 0.040 H Granulocytes # Neutrophils # 6.7 Lymphocytes # 0.9 Monocytes # 1.0 H Eosinophils # 0.2 Basophils # 0.1 Nucleated Red 0.0 Blood Cells # Sodium Level 148 H Potassium Level 3.2 L Chloride Level 108 Carbon Dioxide 35 H Level Anion Gap 5 Blood Urea 50 H Nitrogen Creatinine 1.36 H Est Glomerular Filtrat Rate mL/min Glucose Level 95 Calcium Level 9.2 Phosphorus Level 3.4 Magnesium Level 2.4 Blood Gas Blood arterial Specimen Source Arterial Blood 02/20/2019 7:06:4 Date Drawn 4 AM Arterial Blood pH 7.548 H (Temp corrected) Arterial Blood 36.5 pCO2 (Temp correct) Arterial Blood 75.7 L pO2 (Temp corrected) Arterial Blood 31.1 H HCO3 Arterial Blood 8.3 H Base Excess Arterial Blood 95.7 Oxygen Saturation Dawson Test N/A Arterial Blood Right Brachial Gas Puncture Site Arterial 0.6 Blood Carboxyhemo globin Arterial Blood 0.3 Methemoglobin Blood Gas A-a O2 95.3 H Differential Oxyhemoglobin 94.8 Percent Blood Gas 37.0 Temperature Blood Gas 16.0 Respiration Rate Blood Gas Actual 16 Respiration Rate Blood Gas VENT - AC Modality FiO2 30.0 Blood Gas Tidal 500.0 Volume Blood Gas Low 5.0 PEEP Setting Blood Gas TM Notified Whom Blood Gas 02/20/2019 7:16:1 Notified Time 8 AM Medications Medications Current Medications Ondansetron HCl (Zofran Inj) 4 mg Q6H PRN IV NAUSEA AND/OR VOMITING; Start 02/12/19 at 07:30 Ipratropium [place] (Atrovent Hfa) 2 puff Q2H RESP THERAPY PRN INH SHORTNESS OF BREATH; Start 02/12/19 at 07:30 Acetaminophen (Tylenol Liquid) 650 mg Q6H PRN PO PAIN LEVEL 1-3 OR FEVER Last administered on 02/17/19at 20:02; Admin Dose 650 MG; Start 02/12/19 at 07:30 Acetaminophen (Tylenol Supp) 650 mg Q4H PRN [place] PAIN LEVEL 1-3 OR FEVER; Start 02/12/19 at 07:30 Aspirin (Aspirin) 81 mg DAILY PO Last administered on 02/19/19at 09:05; Admin Dose 81 MG; Start 02/12/19 at 09:00 Clopidogrel Bisulfate (plaVIX) 75 mg DAILY NGT Last administered on 02/19/19at 09:10; Admin Dose 75 MG; Start 02/12/19 at 09:00 Atorvastatin Calcium (Lipitor) 80 mg QHS NGT Last administered on 02/20/19at 00:28; Admin Dose 80 MG; Start 02/12/19 at 21:00 Miscellaneous Information 1 ea NOTE XX ; Start 02/12/19 at 09:30 Glucose (Glutose) 15 gm Q15M PRN PO DECREASED GLUCOSE; Start 02/12/19 at 09:30 Glucose (Glutose) 22.5 gm Q15M PRN PO DECREASED GLUCOSE; Start 02/12/19 at 09:30 Dextrose (D50w Syringe) 25 ml Q15M PRN IV DECREASED GLUCOSE; Start 02/12/19 at 09:30 Dextrose (D50w Syringe) 50 ml Q15M PRN IV DECREASED GLUCOSE; Start 02/12/19 at 09:30 Glucagon (Glucagen) 1 mg Q15M PRN IM DECREASED GLUCOSE; Start 02/12/19 at 09:30 Glucose (Glutose) 15 gm Q15M PRN BUCCAL DECREASED GLUCOSE; Start 02/12/19 at 09:30 Insulin Aspart (Novolog Insulin Pen) NOVOLOG *MODERATE* ALGORI... Q4 SC Last administered on 02/19/19 12:50; Admin Dose 2 UNIT; Start 02/12/19 at 23:07 Carvedilol (Coreg) 25 mg BID PO Last administered on 02/19/19 09:02; Admin Dose 25 MG; Start 02/14/19 at 21:00; Status Hold Sodium Hypochlorite (Dakins Diluted ()) 1 applic DAILY TP Last administered on 02/19/19 09:04; Admin Dose 1 APPLIC; Start 02/15/19 at 09:00 Povidone Iodine (Povidone-Iodine) 1 applic DAILY TOP Last administered on 09:03; Admin Dose 1 APPLIC; Start 02/14/19 at 20:00 Senna (Senokot) 2 tab BID NGT Last administered on 02/18/19 20:39; Admin Dose 2 TAB; Start 02/15/19 at 21:00 Polyethylene Glycol (Miralax) 17 gm DAILY NGT Last administered on 02/18/19 08:45; Admin Dose 17 GM; Start 02/16/19 at 09:00 Docusate Sodium (Colace Liquid Cup) 200 mg BID NGT Last administered on 02/18/19 20:38; Admin Dose 200 MG; Start 02/17/19 at 09:00 Bisacodyl (Dulcolax Supp) 5 mg DAILY PRN [place] CONSTIPATION; Start 02/17/19 at 10:00 Piperacillin Sod/ Tazobactam Sod 100 ml @ 200 mls/hr Q6 IVPB Last administered on 02/20/19 05:14; Admin Dose 200 MLS/HR; Start 02/17/19 at 09:30 Vancomycin HCl (Vanco Iv Per Pharmacy) VANCOMYCIN PER PHARMACY PER PROTOCOL XX ; Start 02/17/19 at 09:30 Vancomycin HCl 1.5 gm/Sodium Chloride 250 ml @ 83.333 mls/ hr Q24H IVPB Last administered on 02/19/19at 09:35; Admin Dose 83.333 MLS/HR; Start 02/18/19 at 10:00 Insulin Glargine (Lantus) 36 units BID SC Last administered on 02/20/19at 00:33; Admin Dose 36 UNITS; Start 02/19/19 at 21:00 Albuterol/ Ipratropium (Duoneb) 3 ml Q2H RESP THERAPY PRN HHN SHORTNESS OF BREATH; Start 02/19/19 at 19:00 Lorazepam (Ativan) 0.5 mg Q12H PRN IV ANXIETY; Start 02/19/19 at 19:30 Famotidine (Pepcid Iv) 20 mg DAILY IV ; Start 02/20/19 at 09:00 Propofol 100 ml @ 2.748 mls/ hr Q12H IV Last administered on 02/19/19at 20:26; Admin Dose 2.748 MLS/HR; Start 02/19/19 at 19:30 Midazolam HCl 50 ml @ 1 mls/hr TITRATE IV ; Start 02/19/19 at 21:00 YOGI NICOLAS MD Feb 20, 2019 09:14
[2019-02-20] MEDS: FAMOTIDINE 20 MG INJ IV SCH (09:17)
--- NOTE | 2019-02-20 09:31 | CONS ---
Assessment/Plan Assessment/Plan Assessment/Plan (Daily) Chest x-ray was reviewed from late last night which is showing left lower lobe infiltrate with mild pulmonary vascular congestion. Ventilator setting; assist control of 16, tidal volume 500, PEEP of 5, 30% FiO2. Patient is currently on propofol at 15 mics per kilogram per minute. Assessment and recommendations; 1. Patient admitted with CHF exacerbation due to underlying cardiomyopathy leading to respiratory failure. Was extubated over the weekend but then required reintubation last evening because of possible aspiration causing left lower lobe pneumonia. 2. History of severe peripheral vascular disease. 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 3. History of diabetes and hypertension. 4. CAD with history of PTCA. 5. Mild acute renal insufficiency with hyponatremia likely diuretic induced. 6. Multiple organisms cultured from right foot ulcer. Continue current supportive care. Continue current antimicrobial regimen as well. Continue to hold Lasix for now. Obtain follow-up chest x-ray 24 hours. Start tube feeding. Monitor serum sodium and renal function. Discussed with plugman. Prognosis is guarded. 35 minutes of critical care time was spent evaluating patient. Consultation Date/Type/Reason Admit Date/Time Feb 12, 2019 at 04:44 Initial Consult Date 02/13/19 Type of Consult Pulmonary/critical care Patient is a 73-year-old lady who was admitted to the hospital with complaints of shortness of breath. Patient was in respiratory failure and had to be intubated and then transferred to ICU. By the time I saw her, patient is orally intubated and sedated with propofol drip. Patient did not appear to be in any distress whatsoever. Per medical records, no CPR was done. Past medical history; 1. 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 2. Diabetes. 3. Peripheral vascular disease. With multiple right lower extremity surgeries as well. 4. CHF. 5. Chronic steroid use. Diagnosis is unclear. Medications; reviewed. Allergies; as outlined above. Family history, occupational history, social history are not available. Review of system; unable to be obtained. General exam; elderly female, orally intubated, sedated, currently in no distress. Requesting Provider: PATSY JONES Date/Time of Note DATE: 02/20/19 TIME: 09:27 24 HR Interval Summary Free Text/Dictation Patient's condition is critical. Unfortunately patient developed respiratory failure again last evening requiring reintubation. Apparently the patient pulled out her NG tube that may have caused aspiration. General exam; elderly female, overweight, orally intubated and sedated. Currently in no distress. Exam/Review of Systems Exam Vitals Vital Signs Date Temp Pulse Resp B/P (MAP) Pulse Ox O2 O2 Flow FiO2 Time Delivery Rate 02/20/19 100.0 81 17 148/70 95 [place] 08:00 (96) l Ventilato r 02/20/19 30 06:22 02/19/19 3.0 17:00 Intake and Output 02/19/19 02/19/19 02/20/19 1515:00 23:00 07:00 IntakeIntake Total 770 ml 124.839 ml 618.472 ml OutputOutput Total 1250 ml 330 ml 210 ml BalanceBalance -480 ml -205.161 ml 408.472 ml Exam H EENT exam; supple neck, positive JVD. No lymphadenopathy. Midline trachea. No thyromegaly. Patient has fair dentition. Orally intubated. Pupils are small bilaterally. No neck masses. Chest exam; diminished breath sounds bilaterally. No added sounds. S1-S2 audible, no murmurs. Regular rhythm. Abdomen exam; soft, protuberant. No organomegaly. Bowel sounds are audible. Extremity exam; no peripheral edema. Left lower extremity amputation stump at hip. Multiple scars right lower extremity with dressing applied to right foot. TERRAZZO ROLLER exam; patient is sedated. Results Result Diagram: 02/20/19 0450 02/20/19 0450 Results 24hrs Laboratory Tests Test 02/19/19 12:42 02/19/19 16:52 02/19/19 19:17 02/19/19 20:30 Bedside Glucose 176 133 166 Blood Gas Blood arterial Specimen Source Arterial Blood 02/19/2019 9:10:5 Date Drawn 6 PM Arterial Blood pH 7.465 H (Temp corrected) Arterial Blood 44.9 pCO2 (Temp correct) Arterial Blood 446.3 H pO2 (Temp corrected) Arterial Blood 31.6 H HCO3 Arterial Blood 6.9 H Base Excess Arterial Blood 99.3 Oxygen Saturation Dawson Test ACCEPTAB Arterial Blood Right Radial Gas Puncture Site Arterial 0.6 Blood Carboxyhemo globin Arterial Blood 0.1 Methemoglobin Blood Gas A-a O2 221.8 H Differential Oxyhemoglobin 98.6 Percent Blood Gas 37.0 Temperature Blood Gas 16.0 Respiration Rate Blood Gas Actual 19 Respiration Rate Blood Gas VENT - AC Modality FiO2 100.0 Blood Gas Tidal 500.0 Volume Blood Gas Low 5.0 PEEP Setting Blood Gas [facility]H. Notified Whom Blood Gas 02/19/2019 9:15:5 Notified Time 8 PM Test 02/20/19 00:27 02/20/19 04:50 02/20/19 05:18 02/20/19 07:00 Bedside Glucose 85 112 White Blood Count 8.8 # Red Blood Count 4.18 L Hemoglobin 12.3 Hematocrit 40.0 Mean Corpuscular 95.7 Volume Mean Corpuscular 29.4 Hemoglobin Mean Corpuscular 30.8 L Hemoglobin Concen t Red Cell 13.0 Distribution Width Platelet Count 426 H Mean Platelet 11.1 H Volume Immature 0.500 H Granulocytes % Neutrophils % 75.9 Lymphocytes % 9.7 L Monocytes % 11.0 Eosinophils % 2.2 Basophils % 0.7 Nucleated Red 0.0 Blood Cells % Immature 0.040 H Granulocytes # Neutrophils # 6.7 Lymphocytes # 0.9 Monocytes # 1.0 H Eosinophils # 0.2 Basophils # 0.1 Nucleated Red 0.0 Blood Cells # Sodium Level 148 H Potassium Level 3.2 L Chloride Level 108 Carbon Dioxide 35 H Level Anion Gap 5 Blood Urea 50 H Nitrogen Creatinine 1.36 H Est Glomerular Filtrat Rate mL/min Glucose Level 95 Calcium Level 9.2 Phosphorus Level 3.4 Magnesium Level 2.4 Blood Gas Blood arterial Specimen Source Arterial Blood 02/20/2019 7:06:4 Date Drawn 4 AM Arterial Blood pH 7.548 H (Temp corrected) Arterial Blood 36.5 pCO2 (Temp correct) Arterial Blood 75.7 L pO2 (Temp corrected) Arterial Blood 31.1 H HCO3 Arterial Blood 8.3 H Base Excess Arterial Blood 95.7 Oxygen Saturation Dawson Test N/A Arterial Blood Right Brachial Gas Puncture Site Arterial 0.6 Blood Carboxyhemo globin Arterial Blood 0.3 Methemoglobin Blood Gas A-a O2 95.3 H Differential Oxyhemoglobin 94.8 Percent Blood Gas 37.0 Temperature Blood Gas 16.0 Respiration Rate Blood Gas Actual 16 Respiration Rate Blood Gas VENT - AC Modality FiO2 30.0 Blood Gas Tidal 500.0 Volume Blood Gas Low 5.0 PEEP Setting Blood Gas TM Notified Whom Blood Gas 02/20/2019 7:16:1 Notified Time 8 AM Medications Medication Current Medications Ondansetron HCl (Zofran Inj) 4 mg Q6H PRN IV NAUSEA AND/OR VOMITING; Start 02/12/19 at 07:30 Ipratropium [place] (Atrovent Hfa) 2 puff Q2H RESP THERAPY PRN INH SHORTNESS OF BREATH; Start 02/12/19 at 07:30 Acetaminophen (Tylenol Liquid) 650 mg Q6H PRN PO PAIN LEVEL 1-3 OR FEVER Last administered on 02/17/19at 20:02; Admin Dose 650 MG; Start 02/12/19 at 07:30 Acetaminophen (Tylenol Supp) 650 mg Q4H PRN [place] PAIN LEVEL 1-3 OR FEVER; Start 02/12/19 at 07:30 Aspirin (Aspirin) 81 mg DAILY PO Last administered on 02/19/19at 09:05; Admin Dose 81 MG; Start 02/12/19 at 09:00 Clopidogrel Bisulfate (plaVIX) 75 mg DAILY NGT Last administered on 02/19/19at 09:10; Admin Dose 75 MG; Start 02/12/19 at 09:00 Atorvastatin Calcium (Lipitor) 80 mg QHS NGT Last administered on 02/20/19at 00:28; Admin Dose 80 MG; Start 02/12/19 at 21:00 Miscellaneous Information 1 ea NOTE XX ; Start 02/12/19 at 09:30 Glucose (Glutose) 15 gm Q15M PRN PO DECREASED GLUCOSE; Start 02/12/19 at 09:30 Glucose (Glutose) 22.5 gm Q15M PRN PO DECREASED GLUCOSE; Start 02/12/19 at 09:30 Dextrose (D50w Syringe) 25 ml Q15M PRN IV DECREASED GLUCOSE; Start 02/12/19 at 09:30 Dextrose (D50w Syringe) 50 ml Q15M PRN IV DECREASED GLUCOSE; Start 02/12/19 at 09:30 Glucagon (Glucagen) 1 mg Q15M PRN IM DECREASED GLUCOSE; Start 02/12/19 at 09:30 Glucose (Glutose) 15 gm Q15M PRN BUCCAL DECREASED GLUCOSE; Start 02/12/19 at 09:30 Insulin Aspart (Novolog Insulin Pen) NOVOLOG *MODERATE* ALGORI... Q4 SC Last administered on 02/19/19at 12:50; Admin Dose 2 UNIT; Start 02/12/19 at 23:07 Sodium Hypochlorite (Dakins Diluted ()) 1 applic DAILY TP Last administered on 02/19/19 09:04; Admin Dose 1 APPLIC; Start 02/15/19 at 09:00 Povidone Iodine (Povidone-Iodine) 1 applic DAILY TOP Last administered on 02/19/19 09:03; Admin Dose 1 APPLIC; Start 02/14/19 at 20:00 Senna (Senokot) 2 tab BID NGT Last administered on 02/18/19 20:39; Admin Dose 2 TAB; Start 02/15/19 at 21:00 Polyethylene Glycol (Miralax) 17 gm DAILY NGT Last administered on 02/18/19 08:45; Admin Dose 17 GM; Start 02/16/19 at 09:00 Docusate Sodium (Colace Liquid Cup) 200 mg BID NGT Last administered on 02/18/19 20:38; Admin Dose 200 MG; Start 02/17/19 at 09:00 Bisacodyl (Dulcolax Supp) 5 mg DAILY PRN [place] CONSTIPATION; Start 02/17/19 at 10:00 Piperacillin Sod/ Tazobactam Sod 100 ml @ 200 mls/hr Q6 IVPB Last administered on 02/20/19at 05:14; Admin Dose 200 MLS/HR; Start 02/17/19 at 09:30 Vancomycin HCl (Vanco Iv Per Pharmacy) VANCOMYCIN PER PHARMACY PER PROTOCOL XX ; Start 02/17/19 at 09:30 Vancomycin HCl 1.5 gm/Sodium Chloride 250 ml @ 83.333 mls/ hr Q24H IVPB Last administered on 02/19/19at 09:35; Admin Dose 83.333 MLS/HR; Start 02/18/19 at 10:00 Insulin Glargine (Lantus) 36 units BID SC Last administered on 02/20/19 00:33; Admin Dose 36 UNITS; Start 02/19/19 at 21:00 Albuterol/ Ipratropium (Duoneb) 3 ml Q2H RESP THERAPY PRN HHN SHORTNESS OF BREATH; Start 02/19/19 at 19:00 Lorazepam (Ativan) 0.5 mg Q12H PRN IV ANXIETY; Start 02/19/19 at 19:30 Famotidine (Pepcid Iv) 20 mg DAILY IV ; Start 02/20/19 at 09:00 Propofol 100 ml @ 2.748 mls/ hr Q12H IV Last administered on 02/19/19at 20:26; Admin Dose 2.748 MLS/HR; Start 02/19/19 at 19:30 Midazolam HCl 50 ml @ 1 mls/hr TITRATE IV ; Start 02/19/19 at 21:00 Carvedilol (Coreg) 3.125 mg TID PO ; Start 02/20/19 at 13:00 SANTHOSH GABRIEL Feb 20, 2019 09:31
--- NOTE | 2019-02-20 09:37 | PN ---
Date/Time of Note Date/Time of Note DATE: 02/20/19 TIME: 09:37 Assessment/Plan VTE Prophylaxis Risk score (from Nsg)>0 risk: 11 SCD applied (from Nsg): Yes Pharmacological prophylaxis: other Lines/Catheters IV Catheter Type (from Nrsg): PICC Line Central line still needed: Yes Urinary Cath still in place: Yes Reason Cath still needed: urinary retention Assessment/Plan Hospital Course S: Patient developed respiratory distress yesterday evening and unfortunately had to be re-intubated. O: VS- see below PE: Gen: Morbidly obese woman lying in bed, intubated HEENT: Unable to fully assess at this time Neck: Supple, no lymphadenopathy. Card: Regular rate and rhythm, no murmurs. Pulm: Slightly distant breath sounds bilaterally, no crackles Abd: Soft, nontender, nondistended. Hypoactive bowel sounds. 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 R leg with well healed bypass scar below the knee. Skin: R lower leg erythema has resolved. Right great toe medial ulcer, clean based, no drainage, no surrounding erythema. 2D echo February 19, 2019: Conclusions: Normal left ventricular cavity size. Mild concentric left ventricular hypertrophy. Moderate left ventricular systolic dysfunction. Ejection fraction is visually estimated at 35 %. Tissue Doppler/Mitral Doppler indices are consistent with impaired relaxation (Stage I diastolic dysfunction). Multiple segmental wall motion abnormalities. Mitral valve leaflets appear mildly thickened. Mild mitral annular calcification. Trace mitral regurgitation. Normal appearance and function of the tricuspid valve with trace physiologic regurgitation. Normal right ventricular systolic pressure. suboptimal study. Assessment/Plan: 73 yo morbidly obese woman history of peripheral vascular disease, diabetes type II, CHF, likely COPD presents with acute respiratory failure due to CHF exacerbation. #Sepsis-patient with temperature 100.0 this morning, before that fevers had been resolving, white blood cell count trending down. Of note patient developed fever to 102 on 02/17. Wound culture positive for polymicrobial growth. -For now continue empiric vanco and zosyn, blood and urine cultures sent. -Continue wound care as needed for the right toe ulcer -Consider ID consult if symptoms worsen #Acute respiratory failure-again had to be reintubated yesterday evening. CTPA negative for PE - Likely CHF exacerbation. Echocardiogram performed yesterday evening, shows ejection fraction 35% -Monitor for now, follow pulmonary recommendations regarding ventilator settings -We will also obtain cardiology consult given CHF findings #Peripheral vascular disease - Cont aspirin, plavix, statin #Diabetic/vascular right foot ulcer- Patient also has outpatient vascular followup- Patient has failed R sided revascularization in the past; per Vascular Dr Naidu repeat attempt at revascularization would be unwise. Wound swab was done which is positive for bacterial growth polymicrobial - Continue supportive treatment with local wound care and antibiotics for now, no debridement planned. #VICTOR M- May have been due to unstable hemodynamics on admission; or contrast load from CTPA- Now resolving. -Monitor BUN/creatinine levels #Diabetes type II, insulin dependent. A1c was 9.7, sugars are stable -Continue Lantus at current dose, aspart with meals, sliding scale, monitor sugars #CHF -Given acute findings, holding beta-nabeel for now -Follow-up cardiology recommendations #History of DVT- LE duplex negative for DVT. 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 GI: famotidine DVT: None Critical care time spent in patient care today equals 45 minutes Result Diagram: 02/20/19 0450 02/20/19 0450 Results 24hrs Laboratory Tests Test 02/19/19 12:42 02/19/19 16:52 02/19/19 19:17 02/19/19 20:30 Bedside Glucose 176 133 166 Blood Gas Blood arterial Specimen Source Arterial Blood 02/19/2019 9:10:5 Date Drawn 6 PM Arterial Blood pH 7.465 H (Temp corrected) Arterial Blood 44.9 pCO2 (Temp correct) Arterial Blood 446.3 H pO2 (Temp corrected) Arterial Blood 31.6 H HCO3 Arterial Blood 6.9 H Base Excess Arterial Blood 99.3 Oxygen Saturation Dawson Test ACCEPTAB Arterial Blood Right Radial Gas Puncture Site Arterial 0.6 Blood Carboxyhemo globin Arterial Blood 0.1 Methemoglobin Blood Gas A-a O2 221.8 H Differential Oxyhemoglobin 98.6 Percent Blood Gas 37.0 Temperature Blood Gas 16.0 Respiration Rate Blood Gas Actual 19 Respiration Rate Blood Gas VENT - AC Modality FiO2 100.0 Blood Gas Tidal 500.0 Volume Blood Gas Low 5.0 PEEP Setting Blood Gas [facility].H. Notified Whom Blood Gas 02/19/2019 9:15:5 Notified Time 8 PM Test 02/20/19 00:27 02/20/19 04:50 02/20/19 05:18 02/20/19 07:00 Bedside Glucose 85 112 White Blood Count 8.8 # Red Blood Count 4.18 L Hemoglobin 12.3 Hematocrit 40.0 Mean Corpuscular 95.7 Volume Mean Corpuscular 29.4 Hemoglobin Mean Corpuscular 30.8 L Hemoglobin Concen t Red Cell 13.0 Distribution Width Platelet Count 426 H Mean Platelet 11.1 H Volume Immature 0.500 H Granulocytes % Neutrophils % 75.9 Lymphocytes % 9.7 L Monocytes % 11.0 Eosinophils % 2.2 Basophils % 0.7 Nucleated Red 0.0 Blood Cells % Immature 0.040 H Granulocytes # Neutrophils # 6.7 Lymphocytes # 0.9 Monocytes # 1.0 H Eosinophils # 0.2 Basophils # 0.1 Nucleated Red 0.0 Blood Cells # Sodium Level 148 H Potassium Level 3.2 L Chloride Level 108 Carbon Dioxide 35 H Level Anion Gap 5 Blood Urea 50 H Nitrogen Creatinine 1.36 H Est Glomerular Filtrat Rate mL/min Glucose Level 95 Calcium Level 9.2 Phosphorus Level 3.4 Magnesium Level 2.4 Blood Gas Blood arterial Specimen Source Arterial Blood 02/20/2019 7:06:4 Date Drawn 4 AM Arterial Blood pH 7.548 H (Temp corrected) Arterial Blood 36.5 pCO2 (Temp correct) Arterial Blood 75.7 L pO2 (Temp corrected) Arterial Blood 31.1 H HCO3 Arterial Blood 8.3 H Base Excess Arterial Blood 95.7 Oxygen Saturation Dawson Test N/A Arterial Blood Right Brachial Gas Puncture Site Arterial 0.6 Blood Carboxyhemo globin Arterial Blood 0.3 Methemoglobin Blood Gas A-a O2 95.3 H Differential Oxyhemoglobin 94.8 Percent Blood Gas 37.0 Temperature Blood Gas 16.0 Respiration Rate Blood Gas Actual 16 Respiration Rate Blood Gas VENT - AC Modality FiO2 30.0 Blood Gas Tidal 500.0 Volume Blood Gas Low 5.0 PEEP Setting Blood Gas TM Notified Whom Blood Gas 02/20/2019 7:16:1 Notified Time 8 AM Test 02/20/19 09:30 Bedside Glucose 72 Exam/Review of Systems Exam Vitals Vital Signs Date Temp Pulse Resp B/P (MAP) Pulse Ox O2 O2 Flow FiO2 Time Delivery Rate 02/20/19 100.0 81 17 148/70 95 [place] 08:00 (96) l Ventilato r 02/20/19 30 06:22 7/15/19 3.0 17:00 Intake and Output 02/19/19 02/19/19 02/20/19 1515:00 23:00 07:00 IntakeIntake Total 770 ml 124.839 ml 618.472 ml OutputOutput Total 1250 ml 330 ml 210 ml BalanceBalance -480 ml -205.161 ml 408.472 ml Results Results 24hrs Laboratory Tests Test 02/19/19 12:42 02/19/19 16:52 02/19/19 19:17 02/19/19 20:30 Bedside Glucose 176 133 166 Blood Gas Blood arterial Specimen Source Arterial Blood 02/19/2019 9:10:5 Date Drawn 6 PM Arterial Blood pH 7.465 H (Temp corrected) Arterial Blood 44.9 pCO2 (Temp correct) Arterial Blood 446.3 H pO2 (Temp corrected) Arterial Blood 31.6 H HCO3 Arterial Blood 6.9 H Base Excess Arterial Blood 99.3 Oxygen Saturation Dawson Test ACCEPTAB Arterial Blood Right Radial Gas Puncture Site Arterial 0.6 Blood Carboxyhemo globin Arterial Blood 0.1 Methemoglobin Blood Gas A-a O2 221.8 H Differential Oxyhemoglobin 98.6 Percent Blood Gas 37.0 Temperature Blood Gas 16.0 Respiration Rate Blood Gas Actual 19 Respiration Rate Blood Gas VENT - AC Modality FiO2 100.0 Blood Gas Tidal 500.0 Volume Blood Gas Low 5.0 PEEP Setting Blood Gas S.H. Notified Whom Blood Gas 02/19/2019 9:15:5 Notified Time 8 PM Test 02/20/19 00:27 02/20/19 04:50 02/20/19 05:18 02/20/19 07:00 Bedside Glucose 85 112 White Blood Count 8.8 # Red Blood Count 4.18 L Hemoglobin 12.3 Hematocrit 40.0 Mean Corpuscular 95.7 Volume Mean Corpuscular 29.4 Hemoglobin Mean Corpuscular 30.8 L Hemoglobin Concen t Red Cell 13.0 Distribution Width Platelet Count 426 H Mean Platelet 11.1 H Volume Immature 0.500 H Granulocytes % Neutrophils % 75.9 Lymphocytes % 9.7 L Monocytes % 11.0 Eosinophils % 2.2 Basophils % 0.7 Nucleated Red 0.0 Blood Cells % Immature 0.040 H Granulocytes # Neutrophils # 6.7 Lymphocytes # 0.9 Monocytes # 1.0 H Eosinophils # 0.2 Basophils # 0.1 Nucleated Red 0.0 Blood Cells # Sodium Level 148 H Potassium Level 3.2 L Chloride Level 108 Carbon Dioxide 35 H Level Anion Gap 5 Blood Urea 50 H Nitrogen Creatinine 1.36 H Est Glomerular Filtrat Rate mL/min Glucose Level 95 Calcium Level 9.2 Phosphorus Level 3.4 Magnesium Level 2.4 Blood Gas Blood arterial Specimen Source Arterial Blood 02/20/2019 7:06:4 Date Drawn 4 AM Arterial Blood pH 7.548 H (Temp corrected) Arterial Blood 36.5 pCO2 (Temp correct) Arterial Blood 75.7 L pO2 (Temp corrected) Arterial Blood 31.1 H HCO3 Arterial Blood 8.3 H Base Excess Arterial Blood 95.7 Oxygen Saturation Dawson Test N/A Arterial Blood Right Brachial Gas Puncture Site Arterial 0.6 Blood Carboxyhemo globin Arterial Blood 0.3 Methemoglobin Blood Gas A-a O2 95.3 H Differential Oxyhemoglobin 94.8 Percent Blood Gas 37.0 Temperature Blood Gas 16.0 Respiration Rate Blood Gas Actual 16 Respiration Rate Blood Gas VENT - AC Modality FiO2 30.0 Blood Gas Tidal 500.0 Volume Blood Gas Low 5.0 PEEP Setting Blood Gas TM Notified Whom Blood Gas 02/20/2019 7:16:1 Notified Time 8 AM Test 02/20/19 09:30 Bedside Glucose 72 Medications Medication Current Medications Ondansetron HCl (Zofran Inj) 4 mg Q6H PRN IV NAUSEA AND/OR VOMITING; Start 02/12/19 at 07:30 Ipratropium [place] (Atrovent Hfa) 2 puff Q2H RESP THERAPY PRN INH SHORTNESS OF BREATH; Start 02/12/19 at 07:30 Acetaminophen (Tylenol Liquid) 650 mg Q6H PRN PO PAIN LEVEL 1-3 OR FEVER Last administered on 02/17/19at 20:02; Admin Dose 650 MG; Start 02/12/19 at 07:30 Acetaminophen (Tylenol Supp) 650 mg Q4H PRN [place] PAIN LEVEL 1-3 OR FEVER; Start 02/12/19 at 07:30 Aspirin (Aspirin) 81 mg DAILY PO Last administered on 02/20/19at 09:10; Admin Dose 81 MG; Start 02/12/19 at 09:00 Clopidogrel Bisulfate (plaVIX) 75 mg DAILY NGT Last administered on 02/20/19at 09:10; Admin Dose 75 MG; Start 02/12/19 at 09:00 Atorvastatin Calcium (Lipitor) 80 mg QHS NGT Last administered on 02/20/19at 00:28; Admin Dose 80 MG; Start 02/12/19 at 21:00 Miscellaneous Information 1 ea NOTE XX ; Start 02/12/19 at 09:30 Glucose (Glutose) 15 gm Q15M PRN PO DECREASED GLUCOSE; Start 02/12/19 at 09:30 Glucose (Glutose) 22.5 gm Q15M PRN PO DECREASED GLUCOSE; Start 02/12/19 at 09:30 Dextrose (D50w Syringe) 25 ml Q15M PRN IV DECREASED GLUCOSE; Start 02/12/19 at 09:30 Dextrose (D50w Syringe) 50 ml Q15M PRN IV DECREASED GLUCOSE; Start 02/12/19 at 09:30 Glucagon (Glucagen) 1 mg Q15M PRN IM DECREASED GLUCOSE; Start 02/12/19 at 09:30 Glucose (Glutose) 15 gm Q15M PRN BUCCAL DECREASED GLUCOSE; Start 02/12/19 at 09:30 Insulin Aspart (Novolog Insulin Pen) NOVOLOG *MODERATE* ALGORI... Q4 SC Last administered on 02/19/19at 12:50; Admin Dose 2 UNIT; Start 02/12/19 at 23:07 Sodium Hypochlorite (Dakins Diluted (40)) 1 applic DAILY TP Last administered on 02/20/19at 09:11; Admin Dose 1 APPLIC; Start 02/15/19 at 09:00 Povidone Iodine (Povidone-Iodine) 1 applic DAILY TOP Last administered on 02/20/19at 09:10; Admin Dose 1 APPLIC; Start 02/14/19 at 20:00 Senna (Senokot) 2 tab BID NGT Last administered on 02/18/19at 20:39; Admin Dose 2 TAB; Start 02/15/19 at 21:00 Polyethylene Glycol (Miralax) 17 gm DAILY NGT Last administered on 02/18/19at 08:45; Admin Dose 17 GM; Start 02/16/19 at 09:00 Docusate Sodium (Colace Liquid Cup) 200 mg BID NGT Last administered on 02/18at 20:38; Admin Dose 200 MG; Start 02/17/19 at 09:00 Bisacodyl (Dulcolax Supp) 5 mg DAILY PRN [place] CONSTIPATION; Start 02/17/19 at 10:00 Piperacillin Sod/ Tazobactam Sod 100 ml @ 200 mls/hr Q6 IVPB Last administered on 02/20/19at 05:14; Admin Dose 200 MLS/HR; Start 02/17/19 at 09:30 Vancomycin HCl (Vanco Iv Per Pharmacy) VANCOMYCIN PER PHARMACY PER PROTOCOL XX ; Start 02/17/19 at 09:30 Vancomycin HCl 1.5 gm/Sodium Chloride 250 ml @ 83.333 mls/ hr Q24H IVPB Last administered on 02/19/19 09:35; Admin Dose 83.333 MLS/HR; Start 02/18/19 at 10:00 Insulin Glargine (Lantus) 36 units BID SC Last administered on 02/20/19 00:33; Admin Dose 36 UNITS; Start 02/19/19 at 21:00 Albuterol/ Ipratropium (Duoneb) 3 ml Q2H RESP THERAPY PRN HHN SHORTNESS OF BREATH; Start 02/19/19 at 19:00 Lorazepam (Ativan) 0.5 mg Q12H PRN IV ANXIETY; Start 02/19/19 at 19:30 Famotidine (Pepcid Iv) 20 mg DAILY IV Last administered on 02/20/19 09:17; Admin Dose 20 MG; Start 02/20/19 at 09:00 Propofol 100 ml @ 2.748 mls/ hr Q12H IV Last administered on 02/20/19 09:26; Admin Dose 8.244 MLS/HR; Start 02/19/19 at 19:30 Midazolam HCl 50 ml @ 1 mls/hr TITRATE IV ; Start 02/19/19 at 21:00 Carvedilol (Coreg) 3.125 mg TID PO ; Start 02/20/19 at 13:00 PATSY JONES Feb 20, 2019 09:37
[2019-02-20] MEDS: POTASSIUM CHLORIDE 50 ML IVPB SCH ×2 (11:54→13:57)
[2019-02-20] MEDS ORDERED: VANCOMYCIN 1.25 GM/NS 250 ML 250 ML IVPB SCH (16:00)
[2019-02-21] VITALS (60 sets, daily range): BP systolic 127–175; BP diastolic 46–155; PULSE 59–83; RESP 14–31
[2019-02-21] MEDS: PIPER-TAZO 3.375 GM IV (PMX) 100 ML IVPB SCH ×2 (00:31→05:25)
[2019-02-21] MEDS: INSULIN ASPART [NOVOLOG] 3 ML PEN SC SCH ×6 (00:41→20:47)
[2019-02-21] MEDS: PROPOFOL 100 ML IV SCH ×2 (04:37→20:37)
[2019-02-21] MEDS ORDERED: POTASSIUM CHLORIDE 100 ML IVPB SCH (07:30)
--- NOTE | 2019-02-21 07:54 | CONS ---
Consult Date/Type/Reason Admit Date/Time Feb 12, 2019 at 04:44 Initial Consult Date 02/20/19 Type of Consultation: cv Requesting Provider: PATSY JONES Date/Time of Note DATE: 02/21/19 TIME: 07:50 Subjective Cardiology follow-up progress note Subjective: Case discussed with staff and telemetry was reviewed. Patient has remained in normal sinus rhythm Patient remains intubated on the vent nonverbal blood pressure has remained stable no Objective: General: Obese female status post intubation on the ventilator HEENT: NC/AT. pupils are equal. round. NECK: Unable to assess for JVD. no stridor. CV: RRR. systolic murmur; no gallop or rubs. PULM: no wheezing + mild rhonchi. 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 Right leg wound noted neuro: Sedated but opens her eyes to verbal stimuli. Psych: calm rectal: deferred : Deferred Echocardiogram was personally reviewed which shows: Normal left ventricular cavity size. Mild concentric left ventricular hypertrophy. Moderate left ventricular systolic dysfunction. Ejection fraction is visually estimated at 35 %. Tissue Doppler/Mitral Doppler indices are consistent with impaired relaxation (Stage I diastolic dysfunction). Multiple segmental wall motion abnormalities. Mitral valve leaflets appear mildly thickened. Mild mitral annular calcification. Trace mitral regurgitation. Normal appearance and function of the tricuspid valve with trace physiologic regurgitation. Normal right ventricular systolic pressure. suboptimal study. Chest x-ray done 02/19/2019 shows: There is mild atelectasis at the lung bases, unchanged. Mild pulmonary edema is unchanged. The heart size is normal. There are small bilateral pleural effusions. There is no pneumothorax. Objective Vitals Vital Signs Date Temp Pulse Resp B/P (MAP) Pulse Ox O2 O2 Flow FiO2 Time Delivery Rate 02/21/19 74 16 148/48 96 06:30 (81) 02/21/19 Mechanical 06:00 Ventilator 02/21/19 30 05:43 02/21/19 99.2 04:00 02/19/19 3.0 17:00 Intake and Output 02/20/19 02/20/19 02/21/19 1515:00 23:00 07:00 IntakeIntake Total 756.0 ml 735.0 ml 1052.044 ml OutputOutput Total 245 ml 325 ml 255 ml BalanceBalance 511.0 ml 410.0 ml 797.044 ml Results/Medications Result Diagram: 02/21/19 0450 02/21/19 0450 Results 24 hrs Laboratory Tests Test 02/20/19 09:30 02/20/19 09:34 02/20/19 13:52 02/20/19 16:08 Bedside Glucose 72 95 119 Vancomycin Level 18.3 Trough Test 02/20/19 20:10 02/21/19 00:40 02/21/19 04:47 02/21/19 04:50 Bedside Glucose 131 136 87 White Blood Count 7.0 # Red Blood Count 3.84 L Hemoglobin 11.3 L Hematocrit 36.7 L Mean Corpuscular 95.6 Volume Mean Corpuscular 29.4 Hemoglobin Mean Corpuscular 30.8 L Hemoglobin Concent Red Cell 13.2 Distribution Width Platelet Count 424 H Mean Platelet Volume 10.8 H Immature 0.400 Granulocytes % Neutrophils % 58.9 Lymphocytes % 17.0 Monocytes % 10.7 Eosinophils % 11.7 H Basophils % 1.3 Nucleated Red Blood 0.0 Cells % Immature 0.030 Granulocytes # Neutrophils # 4.1 Lymphocytes # 1.2 Monocytes # 0.8 Eosinophils # 0.8 H Basophils # 0.1 Nucleated Red Blood 0.0 Cells # Sodium Level 150 H Potassium Level 3.3 L Chloride Level 111 H Carbon Dioxide Level 33 H Anion Gap 6 Blood Urea Nitrogen 53 H Creatinine 1.40 H Est Glomerular Filtrat Rate mL/min Glucose Level 117 Calcium Level 8.8 Phosphorus Level 3.8 Magnesium Level 2.7 H Home Meds Reported Medications Insulin Glargine,Hum.rec.anlog (Basaglar Kwikpen U-100) 100 Unit/1 Ml Insuln. pen, 0-12 UNIT SC QHS for PER SLIDING SCALE, EA 02/12/19 Insulin Aspart* (Novolog Insulin Pen*) 100 Unit/Ml Soln, 0-12 SC .SLIDING SCALE AC, EA 02/12/19 Dulaglutide (Trulicity) 1.5 Mg/0.5 Ml Pen.injctr, 1.5 MG SQ WEEKLY 02/12/19 Aspirin* (Aspirin* Chew) 81 Mg Tab.chew, 81 MG PO DAILY, TAB.CHEW 02/12/19 Clopidogrel Bisulfate (Clopidogrel) 75 Mg Tablet, 1 TAB ORAL DAILY 02/12/19 Tramadol HCl (Tramadol HCl) 50 Mg Tablet, 1 TAB ORAL Q6 PRN for PAIN LEVEL 4-6 02/12/19 Arginine Hcl (Arginine Hcl) 1 Gm Powder, 1 GM MC DAILY 02/12/19 Sacubitril/Valsartan (Entresto 49 mg-51 mg Tablet) 1 Each Tablet, 1 TAB ORAL DAILY 02/12/19 Atorvastatin* (Atorvastatin*) 80 Mg Tablet, 1 TAB ORAL QHS 02/12/19 Carvedilol* (Carvedilol*) 25 Mg Tablet, 1 TAB ORAL BID 02/12/19 Spironolactone* (Aldactone*) 25 Mg Tablet, 12.5 MG PO QAM, #60 TAB 02/12/19 Ampicillin Sodium-Sulbactam Sodium (Unasyn*) 3 Gm Soln, 3 GM IVPB Q6, VIAL 02/12/19 Medications Current Medications Ondansetron HCl (Zofran Inj) 4 mg Q6H PRN IV NAUSEA AND/OR VOMITING; Start 02/12/19 at 07:30 Ipratropium [place] (Atrovent Hfa) 2 puff Q2H RESP THERAPY PRN INH SHORTNESS OF BREATH; Start 02/12/19 at 07:30 Acetaminophen (Tylenol Liquid) 650 mg Q6H PRN PO PAIN LEVEL 1-3 OR FEVER Last administered on 02/17/19at 20:02; Admin Dose 650 MG; Start 02/12/19 at 07:30 Acetaminophen (Tylenol Supp) 650 mg Q4H PRN [place] PAIN LEVEL 1-3 OR FEVER; Start 02/12/19 at 07:30 Aspirin (Aspirin) 81 mg DAILY PO Last administered on 02/20/19at 09:10; Admin Dose 81 MG; Start 02/12/19 at 09:00 Clopidogrel Bisulfate (plaVIX) 75 mg DAILY NGT Last administered on 02/20/19at 09:10; Admin Dose 75 MG; Start 02/12/19 at 09:00 Atorvastatin Calcium (Lipitor) 80 mg QHS NGT Last administered on 02/20/19at 20:04; Admin Dose 80 MG; Start 02/12/19 at 21:00 Miscellaneous Information 1 ea NOTE XX ; Start 02/12/19 at 09:30 Glucose (Glutose) 15 gm Q15M PRN PO DECREASED GLUCOSE; Start 02/12/19 at 09:30 Glucose (Glutose) 22.5 gm Q15M PRN PO DECREASED GLUCOSE; Start 02/12/19 at 09:30 Dextrose (D50w Syringe) 25 ml Q15M PRN IV DECREASED GLUCOSE; Start 02/12/19 at 09:30 Dextrose (D50w Syringe) 50 ml Q15M PRN IV DECREASED GLUCOSE; Start 02/12/19 at 09:30 Glucagon (Glucagen) 1 mg Q15M PRN IM DECREASED GLUCOSE; Start 02/12/19 at 09:30 Glucose (Glutose) 15 gm Q15M PRN BUCCAL DECREASED GLUCOSE; Start 02/12/19 at 09:30 Insulin Aspart (Novolog Insulin Pen) NOVOLOG *MODERATE* ALGORI... Q4 SC Last administered on 02/19/19at 12:50; Admin Dose 2 UNIT; Start 02/12/19 at 23:07 Sodium Hypochlorite (Dakins Diluted (40)) 1 applic DAILY TP Last administered on 02/20/19at 09:11; Admin Dose 1 APPLIC; Start 02/15/19 at 09:00 Povidone Iodine (Povidone-Iodine) 1 applic DAILY TOP Last administered on 02/20/19 09:10; Admin Dose 1 APPLIC; Start 02/14/19 at 20:00 Senna (Senokot) 2 tab BID NGT Last administered on 02/18/19at 20:39; Admin Dose 2 TAB; Start 02/15/19 at 21:00 Polyethylene Glycol (Miralax) 17 gm DAILY NGT Last administered on 02/18/19at 08:45; Admin Dose 17 GM; Start 02/16/19 at 09:00 Docusate Sodium (Colace Liquid Cup) 200 mg BID NGT Last administered on 02/18/19at 20:38; Admin Dose 200 MG; Start 02/17/19 at 09:00 Bisacodyl (Dulcolax Supp) 5 mg DAILY PRN [place] CONSTIPATION; Start 02/17/19 at 10:00 Piperacillin Sod/ Tazobactam Sod 100 ml @ 200 mls/hr Q6 IVPB Last administered on 02/21/19at 05:25; Admin Dose 200 MLS/HR; Start 02/17/19 at 09:30 Vancomycin HCl (Vanco Iv Per Pharmacy) VANCOMYCIN PER PHARMACY PER PROTOCOL XX ; Start 02/17/19 at 09:30 Insulin Glargine (Lantus) 36 units BID SC Last administered on 02/20/19at 20:18; Admin Dose 36 UNITS; Start 02/19/19 at 21:00 Albuterol/ Ipratropium (Duoneb) 3 ml Q2H RESP THERAPY PRN HHN SHORTNESS OF BREATH; Start 02/19/19 at 19:00 Lorazepam (Ativan) 0.5 mg Q12H PRN IV ANXIETY; Start 02/19/19 at 19:30 Famotidine (Pepcid Iv) 20 mg DAILY IV Last administered on 02/20/19at 09:17; Admin Dose 20 MG; Start 02/20/19 at 09:00 Propofol 100 ml @ 2.748 mls/ hr Q12H IV Last administered on 02/21/19at 04:37; Admin Dose 10.992 MLS/HR; Start 02/19/19 at 19:30 Midazolam HCl 50 ml @ 1 mls/hr TITRATE IV ; Start 02/19/19 at 21:00 Carvedilol (Coreg) 3.125 mg TID PO Last administered on 02/20/19at 20:05; Admin Dose 3.125 MG; Start 02/20/19 at 13:00 Vancomycin/Sodium Chloride 250 ml @ 83.333 mls/ hr Q24H IVPB Last administered on 02/20/19at 16:06; Admin Dose 83.333 MLS/HR; Start 02/20/19 at 16:00 Nystatin (Nystatin Oint) 1 applic BID TOP ; Start 02/21/19 at 09:00 Potassium Chloride 100 ml @ 50 mls/hr Q2H IVPB ; Start 02/21/19 at 07:30; Stop 02/21/19 at 11:29 Assessment/Plan Hospital Course (Demo Recall) Acute hypoxemic respiratory failure status post intubation now ventilatory dependent Congestive heart failure: Acute on chronic secondary systolic heart failure Sepsis Coronary artery disease with history of CO History of ischemic cardiomyopathy ejection fraction of 35% History of multiple PCI Severe peripheral vascular disease status post left leg amputation as well as right leg severe PAD Hypertension diabetes dyslipidemia Hyponatremia Acute kidney injury Recommendations: Vent support respiratory care will be continued managed as per pulmonary. Continue with aspirin and Plavix diabetic control as per internal medicine We will cont carvedilol Antibiotic management as per internal medicine ID recommendations DVT prophylaxis GI prophylaxis as per internal medicine Continue with ICU care Diuretics on hold not due to hyponatremia. We will adjusted daily as needed FREDY inhibitor/ARB is on hold due to acute renal failure will resume once it stabilizes consider increasing free water. replace K Thank you for his referral. We will continue to follow along with you OYGI NICOLAS MD [facility] YOGI NICOLAS MD Feb 21, 2019 07:54
[2019-02-21] MEDS ORDERED: POTASSIUM CHLORIDE 20 MEQ POWDER FOR ORAL SOLN NGT ONE (08:00)
[2019-02-21] MEDS: DOCUSATE SODIUM 10 MG/ML (10ML CUP) NGT SCH ×2 (09:00→20:37)
[2019-02-21] MEDS: SENNA TAB NGT SCH ×2 (09:00→20:37)
[2019-02-21] MEDS: POLYETHYLENE GLYCOL 17 GM PACKET NGT SCH (09:00)
--- NOTE | 2019-02-21 09:29 | CONS ---
Assessment/Plan Assessment/Plan Assessment/Plan (Daily) Chest x-ray was reviewed from today which is showing significant improvement in left lower lobe infiltrative changes as well as pulmonary vascular congestion. Ventilator setting; assist control of 16, tidal volume 500, PEEP of 5, 30% FiO2. Patient is currently on propofol at 10 mics per kilogram per minute. Assessment and recommendations; 1. Patient with history of cardiomyopathy admitted for CHF exacerbation leading to respiratory failure. Required reintubation due to possibly some element of aspiration involving left lung with significant clinical and radiological improvement. Currently on appropriate antimicrobial regimen. 2. Acute renal injury, likely diuretic induced. 3. Mild hypernatremia. 4. Severe peripheral vascular disease. 5. History of diabetes and hypertension. 6. Underlying CAD with history of multiple PTCAs. Hold further sedation. Once patient is off sedation she will be again evaluated for possible weaning from ventilator. Meanwhile continue current supportive care. 35 minutes of critical care time was spent evaluating the patient. Consultation Date/Type/Reason Admit Date/Time Feb 12, 2019 at 04:44 Initial Consult Date 02/13/19 Type of Consult Pulmonary/critical care Patient is a 73-year-old lady who was admitted to the hospital with complaints of shortness of breath. Patient was in respiratory failure and had to be intubated and then transferred to ICU. By the time I saw her, patient is orally intubated and sedated with propofol drip. Patient did not appear to be in any distress whatsoever. Per medical records, no CPR was done. Past medical history; 1. 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 2. Diabetes. 3. Peripheral vascular disease. With multiple right lower extremity surgeries as well. 4. CHF. 5. Chronic steroid use. Diagnosis is unclear. Medications; reviewed. Allergies; as outlined above. Family history, occupational history, social history are not available. Review of system; unable to be obtained. General exam; elderly female, orally intubated, sedated, currently in no distress. Requesting Provider: PATSY JONES Date/Time of Note DATE: 02/21/19 TIME: 09:26 24 HR Interval Summary Free Text/Dictation Patient's condition remains critical but stable. Has remained hemodynamically stable. General exam; elderly woman, appears overweight, orally intubated and despite being on propofol, is awake and responsive appropriately. Currently no distres s. Exam/Review of Systems Exam Vitals Vital Signs Date Temp Pulse Resp B/P (MAP) Pulse Ox O2 O2 Flow FiO2 Time Delivery Rate 02/21/19 75 08:00 02/21/19 16 148/48 96 06:30 (81) 02/21/19 Mechanical 06:00 Ventilator 02/21/19 30 05:43 02/21/19 99.2 04:00 02/19/19 3.0 17:00 Intake and Output 02/20/19 02/20/19 02/21/19 1515:00 23:00 07:00 IntakeIntake Total 756.0 ml 735.0 ml 1052.044 ml OutputOutput Total 245 ml 325 ml 255 ml BalanceBalance 511.0 ml 410.0 ml 797.044 ml Exam H ENT exam; supple neck, positive JVD. No lymphadenopathy. Midline trachea. No thyromegaly. Orally intubated. Orogastric tube in place. Pupils are small bilaterally. No neck masses. Chest exam; clear to auscultation. S1-S2 audible, no murmurs. Regular rhythm. Abdomen exam; soft, protuberant. No organomegaly. Bowel sounds are audible. Extremity exam; no peripheral edema. Multiple scars involving right lower extremity. Left lower extremity is amputated at the hip. [employer] UCO exam; patient awake and follows simple commands. Results Result Diagram: 02/21/19 0450 02/21/19 0450 Results 24hrs Laboratory Tests Test 02/20/19 09:30 02/20/19 09:34 02/20/19 13:52 02/20/19 16:08 Bedside Glucose 72 95 119 Vancomycin Level 18.3 Trough Test 02/20/19 20:10 02/21/19 00:40 02/21/19 04:47 02/21/19 04:50 Bedside Glucose 131 136 87 White Blood Count 7.0 # Red Blood Count 3.84 L Hemoglobin 11.3 L Hematocrit 36.7 L Mean Corpuscular 95.6 Volume Mean Corpuscular 29.4 Hemoglobin Mean Corpuscular 30.8 L Hemoglobin Concent Red Cell 13.2 Distribution Width Platelet Count 424 H Mean Platelet Volume 10.8 H Immature 0.400 Granulocytes % Neutrophils % 58.9 Lymphocytes % 17.0 Monocytes % 10.7 Eosinophils % 11.7 H Basophils % 1.3 Nucleated Red Blood 0.0 Cells % Immature 0.030 Granulocytes # Neutrophils # 4.1 Lymphocytes # 1.2 Monocytes # 0.8 Eosinophils # 0.8 H Basophils # 0.1 Nucleated Red Blood 0.0 Cells # Sodium Level 150 H Potassium Level 3.3 L Chloride Level 111 H Carbon Dioxide Level 33 H Anion Gap 6 Blood Urea Nitrogen 53 H Creatinine 1.40 H Est Glomerular Filtrat Rate mL/min Glucose Level 117 Calcium Level 8.8 Phosphorus Level 3.8 Magnesium Level 2.7 H Medications Medication Current Medications Ondansetron HCl (Zofran Inj) 4 mg Q6H PRN IV NAUSEA AND/OR VOMITING; Start 02/12 at 07:30 Ipratropium [place] (Atrovent Hfa) 2 puff Q2H RESP THERAPY PRN INH SHORTNESS OF BREATH; Start 02/12/19 at 07:30 Acetaminophen (Tylenol Liquid) 650 mg Q6H PRN PO PAIN LEVEL 1-3 OR FEVER Last administered on 02/17/19at 20:02; Admin Dose 650 MG; Start 02/12/19 at 07:30 Acetaminophen (Tylenol Supp) 650 mg Q4H PRN [place] PAIN LEVEL 1-3 OR FEVER; Start 02/12/19 at 07:30 Aspirin (Aspirin) 81 mg DAILY PO Last administered on 02/20/19at 09:10; Admin Dose 81 MG; Start 02/12/19 at 09:00 Clopidogrel Bisulfate (plaVIX) 75 mg DAILY NGT Last administered on 02/20/19at 09:10; Admin Dose 75 MG; Start 02/12/19 at 09:00 Atorvastatin Calcium (Lipitor) 80 mg QHS NGT Last administered on 02/20/19at 20:04; Admin Dose 80 MG; Start 02/12/19 at 21:00 Miscellaneous Information 1 ea NOTE XX ; Start 02/12/19 at 09:30 Glucose (Glutose) 15 gm Q15M PRN PO DECREASED GLUCOSE; Start 02/12/19 at 09:30 Glucose (Glutose) 22.5 gm Q15M PRN PO DECREASED GLUCOSE; Start 02/12/19 at 09:30 Dextrose (D50w Syringe) 25 ml Q15M PRN IV DECREASED GLUCOSE; Start 02/12/19 at 09:30 Dextrose (D50w Syringe) 50 ml Q15M PRN IV DECREASED GLUCOSE; Start 02/12/19 at 09:30 Glucagon (Glucagen) 1 mg Q15M PRN IM DECREASED GLUCOSE; Start 02/12/19 at 09:30 Glucose (Glutose) 15 gm Q15M PRN BUCCAL DECREASED GLUCOSE; Start 02/12/19 at 09:30 Insulin Aspart (Novolog Insulin Pen) NOVOLOG *MODERATE* ALGORI... Q4 SC Last administered on 02/19/19at 12:50; Admin Dose 2 UNIT; Start 02/12/19 at 23:07 Sodium Hypochlorite (Dakins Diluted ()) 1 applic DAILY TP Last administered on 02/20/19 09:11; Admin Dose 1 APPLIC; Start 02/15/19 at 09:00 Povidone Iodine (Povidone-Iodine) 1 applic DAILY TOP Last administered on 02/20/19 09:10; Admin Dose 1 APPLIC; Start 02/14/19 at 20:00 Senna (Senokot) 2 tab BID NGT Last administered on 02/18/19at 20:39; Admin Dose 2 TAB; Start 02/15/19 at 21:00 Polyethylene Glycol (Miralax) 17 gm DAILY NGT Last administered on 02/18/19at 08:45; Admin Dose 17 GM; Start 02/16/19 at 09:00 Docusate Sodium (Colace Liquid Cup) 200 mg BID NGT Last administered on 02/18/19at 20:38; Admin Dose 200 MG; Start 02/17/19 at 09:00 Bisacodyl (Dulcolax Supp) 5 mg DAILY PRN [place] CONSTIPATION; Start 02/17/19 at 10:00 Piperacillin Sod/ Tazobactam Sod 100 ml @ 200 mls/hr Q6 IVPB Last administered on 02/21/19at 05:25; Admin Dose 200 MLS/HR; Start 02/17/19 at 09:30 Vancomycin HCl (Vanco Iv Per Pharmacy) VANCOMYCIN PER PHARMACY PER PROTOCOL XX ; Start 02/17/19 at 09:30 Insulin Glargine (Lantus) 36 units BID SC Last administered on 02/20/19at 20:18; Admin Dose 36 UNITS; Start 02/19/19 at 21:00 Albuterol/ Ipratropium (Duoneb) 3 ml Q2H RESP THERAPY PRN HHN SHORTNESS OF BREATH; Start 02/19/19 at 19:00 Lorazepam (Ativan) 0.5 mg Q12H PRN IV ANXIETY; Start 02/19/19 at 19:30 Famotidine (Pepcid Iv) 20 mg DAILY IV Last administered on 02/20/19at 09:17; Admin Dose 20 MG; Start 02/20/19 at 09:00 Propofol 100 ml @ 2.748 mls/ hr Q12H IV Last administered on 02/21/19at 04:37; Admin Dose 10.992 MLS/HR; Start 02/19/19 at 19:30 Midazolam HCl 50 ml @ 1 mls/hr TITRATE IV ; Start 02/19/19 at 21:00 Carvedilol (Coreg) 3.125 mg TID PO Last administered on 02/20/19at 20:05; Admin Dose 3.125 MG; Start 02/20/19 at 13:00 Vancomycin/Sodium Chloride 250 ml @ 83.333 mls/ hr Q24H IVPB Last administered on 02/20/19at 16:06; Admin Dose 83.333 MLS/HR; Start 02/20/19 at 16:00 Nystatin (Nystatin Oint) 1 applic BID TOP ; Start 02/21/19 at 09:00 SANTHOSH GABRIEL Feb 21, 2019 09:29
[2019-02-21] MEDS: ASPIRIN 81 MG TAB PO SCH (09:51)
[2019-02-21] MEDS: FAMOTIDINE 20 MG INJ IV SCH (09:51)
[2019-02-21] MEDS: CLOPIDOGREL 75 MG TAB NGT SCH (09:51)
[2019-02-21] MEDS: NYSTATIN 15 GM OINT TOP SCH ×2 (09:53→20:47)
[2019-02-21] MEDS: BALSAM PERU/CASTOR OIL 60 GM TUBE TOP SCH ×2 (09:54→20:47)
[2019-02-21] MEDS: DAKINS 0.0125%(1/40) 473 ML SOLUTION TP SCH (09:54)
[2019-02-21] MEDS: POVIDONE IODINE 10% 28.4 GM OINT TOP SCH (09:54)
--- NOTE | 2019-02-21 10:21 | PN ---
Date/Time of Note Date/Time of Note DATE: 02/21/19 TIME: 10:18 Assessment/Plan VTE Prophylaxis Risk score (from Nsg)>0 risk: 11 SCD applied (from Nsg): Yes Pharmacological prophylaxis: other Lines/Catheters IV Catheter Type (from Nrsg): PICC Line Central line still needed: Yes Urinary Cath still in place: Yes Reason Cath still needed: urinary retention Assessment/Plan Hospital Course S: Patient still intubated but undergoing CPAP trial presently. O: VS- see below PE: Gen: Morbidly obese woman lying in bed, intubated HEENT: Opens eyes presently (off sedation) Neck: Supple, no lymphadenopathy. Card: Regular rate and rhythm, no murmurs. Pulm: Slightly distant breath sounds bilaterally, no crackles Abd: Soft, nontender, nondistended. Hypoactive bowel sounds. 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 R leg with well healed bypass scar below the knee. Skin: R lower leg erythema has resolved. Right great toe medial ulcer, clean based, no drainage, no surrounding erythema. 2D echo February 19, 2019: Conclusions: Normal left ventricular cavity size. Mild concentric left ventricular hypertrophy. Moderate left ventricular systolic dysfunction. Ejection fraction is visually estimated at 35 %. Tissue Doppler/Mitral Doppler indices are consistent with impaired relaxation (Stage I diastolic dysfunction). Multiple segmental wall motion abnormalities. Mitral valve leaflets appear mildly thickened. Mild mitral annular calcification. Trace mitral regurgitation. Normal appearance and function of the tricuspid valve with trace physiologic regurgitation. Normal right ventricular systolic pressure. suboptimal study. Assessment/Plan: 73 yo morbidly obese woman history of peripheral vascular dis ease, diabetes type II, CHF, likely COPD presents with acute respiratory failure due to CHF exacerbation. #Sepsis-slowly improving, wound culture positive for MRSA, Klebsiella, enterococcus, yeast. No fevers in the last 24 hours. Of note patient developed fever to 102 on 02/17. Wound culture positive for polymicrobial growth. -For now continue empiric vanco and zosyn, follow final results of blood and urine cultures -Continue wound care as needed for the right toe ulcer -Consider ID consult if symptoms worsen #Acute respiratory failure-again had to be reintubated 2 days ago. CTPA negative for PE - Likely CHF exacerbation. Echocardiogram performed yesterday evening, shows ejection fraction 35% -Monitor for now, follow pulmonary recommendations regarding ventilator settings -Follow-up results of the CPAP trial, and cardiology recommendations #Peripheral vascular disease - Cont aspirin, plavix, statin #Diabetic/vascular right foot ulcer- Patient also has outpatient vascular fo llowup- Patient has failed R sided revascularization in the past; per Vascular Dr Naidu repeat attempt at revascularization would be unwise. Wound swab was done which is positive for bacterial growth polymicrobial - Continue supportive treatment with local wound care and antibiotics for now, no debridement planned. #VICTOR M- May have been due to unstable hemodynamics on admission; or contrast load from CTPA- Now resolving. -Monitor BUN/creatinine levels #Diabetes type II, insulin dependent. A1c was 9.7, sugars are stable -Continue Lantus at current dose, aspart with meals, sliding scale, monitor sugars #CHF -Monitor, continue low-dose beta-nabeel per cardiology recommendations -Follow-up further cardiology recommendations #History of DVT- LE duplex negative for DVT. 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 GI: famotidine DVT: None Critical care time spent in patient care today equals 40 minutes Result Diagram: 02/21/19 0450 02/21/19 0450 Results 24hrs Laboratory Tests Test 02/20/19 13:52 02/20/19 16:08 02/20/19 20:10 02/21/19 00:40 Bedside Glucose 95 119 131 136 Test 02/21/19 04:47 02/21/19 04:50 02/21/19 09:52 Bedside Glucose 87 96 White Blood Count 7.0 # Red Blood Count 3.84 L Hemoglobin 11.3 L Hematocrit 36.7 L Mean Corpuscular 95.6 Volume Mean Corpuscular 29.4 Hemoglobin Mean Corpuscular 30.8 L Hemoglobin Concent Red Cell 13.2 Distribution Width Platelet Count 424 H Mean Platelet Volume 10.8 H Immature 0.400 Granulocytes % Neutrophils % 58.9 Lymphocytes % 17.0 Monocytes % 10.7 Eosinophils % 11.7 H Basophils % 1.3 Nucleated Red Blood 0.0 Cells % Immature 0.030 Granulocytes # Neutrophils # 4.1 Lymphocytes # 1.2 Monocytes # 0.8 Eosinophils # 0.8 H Basophils # 0.1 Nucleated Red Blood 0.0 Cells # Sodium Level 150 H Potassium Level 3.3 L Chloride Level 111 H Carbon Dioxide Level 33 H Anion Gap 6 Blood Urea Nitrogen 53 H Creatinine 1.40 H Est Glomerular Filtrat Rate mL/min Glucose Level 117 Calcium Level 8.8 Phosphorus Level 3.8 Magnesium Level 2.7 H Exam/Review of Systems Exam Vitals Vital Signs Date Temp Pulse Resp B/P (MAP) Pulse Ox O2 O2 Flow FiO2 Time Delivery Rate 02/21/19 75 08:00 02/21/19 16 148/48 96 06:30 (81) 02/21/19 Mechanical 06:00 Ventilator 02/21/19 30 05:43 02/21/19 99.2 04:00 02/19/19 3.0 17:00 Intake and Output 02/20/19 02/20/19 02/21/19 1515:00 23:00 07:00 IntakeIntake Total 756.0 ml 735.0 ml 1052.044 ml OutputOutput Total 245 ml 325 ml 255 ml BalanceBalance 511.0 ml 410.0 ml 797.044 ml Results Results 24hrs Laboratory Tests Test 02/20/19 13:52 02/20/19 16:08 02/20/19 20:10 02/21/19 00:40 Bedside Glucose 95 119 131 136 Test 02/21/19 04:47 02/21/19 04:50 02/21/19 09:52 Bedside Glucose 87 96 White Blood Count 7.0 # Red Blood Count 3.84 L Hemoglobin 11.3 L Hematocrit 36.7 L Mean Corpuscular 95.6 Volume Mean Corpuscular 29.4 Hemoglobin Mean Corpuscular 30.8 L Hemoglobin Concent Red Cell 13.2 Distribution Width Platelet Count 424 H Mean Platelet Volume 10.8 H Immature 0.400 Granulocytes % Neutrophils % 58.9 Lymphocytes % 17.0 Monocytes % 10.7 Eosinophils % 11.7 H Basophils % 1.3 Nucleated Red Blood 0.0 Cells % Immature 0.030 Granulocytes # Neutrophils # 4.1 Lymphocytes # 1.2 Monocytes # 0.8 Eosinophils # 0.8 H Basophils # 0.1 Nucleated Red Blood 0.0 Cells # Sodium Level 150 H Potassium Level 3.3 L Chloride Level 111 H Carbon Dioxide Level 33 H Anion Gap 6 Blood Urea Nitrogen 53 H Creatinine 1.40 H Est Glomerular Filtrat Rate mL/min Glucose Level 117 Calcium Level 8.8 Phosphorus Level 3.8 Magnesium Level 2.7 H Medications Medication Current Medications Ondansetron HCl (Zofran Inj) 4 mg Q6H PRN IV NAUSEA AND/OR VOMITING; Start 02/12/19 at 07:30 Ipratropium [place] (Atrovent Hfa) 2 puff Q2H RESP THERAPY PRN INH SHORTNESS OF BREATH; Start 02/12/19 at 07:30 Acetaminophen (Tylenol Liquid) 650 mg Q6H PRN PO PAIN LEVEL 1-3 OR FEVER Last administered on 02/17/19at 20:02; Admin Dose 650 MG; Start 02/12/19 at 07:30 Acetaminophen (Tylenol Supp) 650 mg Q4H PRN [place] PAIN LEVEL 1-3 OR FEVER; Start 02/12/19 at 07:30 Aspirin (Aspirin) 81 mg DAILY PO Last administered on 02/20/19at 09:10; Admin Dose 81 MG; Start 02/12/19 at 09:00 Clopidogrel Bisulfate (plaVIX) 75 mg DAILY NGT Last administered on 02/20/19at 09:10; Admin Dose 75 MG; Start 02/12/19 at 09:00 Atorvastatin Calcium (Lipitor) 80 mg QHS NGT Last administered on 02/20/19at 20:04; Admin Dose 80 MG; Start 02/12/19 at 21:00 Miscellaneous Information 1 ea NOTE XX ; Start 02/12/19 at 09:30 Glucose (Glutose) 15 gm Q15M PRN PO DECREASED GLUCOSE; Start 02/12/19 at 09:30 Glucose (Glutose) 22.5 gm Q15M PRN PO DECREASED GLUCOSE; Start 02/12/19 at 09:30 Dextrose (D50w Syringe) 25 ml Q15M PRN IV DECREASED GLUCOSE; Start 02/12/19 at 09:30 Dextrose (D50w Syringe) 50 ml Q15M PRN IV DECREASED GLUCOSE; Start 02/12/19 at 09:30 Glucagon (Glucagen) 1 mg Q15M PRN IM DECREASED GLUCOSE; Start 02/12/19 at 09:30 Glucose (Glutose) 15 gm Q15M PRN BUCCAL DECREASED GLUCOSE; Start 02/12/19 at 09:30 Insulin Aspart (Novolog Insulin Pen) NOVOLOG *MODERATE* ALGORI... Q4 SC Last administered on 02/19/19at 12:50; Admin Dose 2 UNIT; Start 02/12/19 at 23:07 Sodium Hypochlorite (Dakins Diluted ()) 1 applic DAILY TP Last administered on 02/20/19 09:11; Admin Dose 1 APPLIC; Start 02/15/19 at 09:00 Povidone Iodine (Povidone-Iodine) 1 applic DAILY TOP Last administered on 02/20/19at 09:10; Admin Dose 1 APPLIC; Start 02/14/19 at 20:00 Senna (Senokot) 2 tab BID NGT Last administered on 02/18/19 20:39; Admin Dose 2 TAB; Start 02/15/19 at 21:00 Polyethylene Glycol (Miralax) 17 gm DAILY NGT Last administered on 02/18/19 08:45; Admin Dose 17 GM; Start 02/16/19 at 09:00 Docusate Sodium (Colace Liquid Cup) 200 mg BID NGT Last administered on 02/18/19at 20:38; Admin Dose 200 MG; Start 02/17/19 at 09:00 Bisacodyl (Dulcolax Supp) 5 mg DAILY PRN [place] CONSTIPATION; Start 02/17/19 at 10:00 Piperacillin Sod/ Tazobactam Sod 100 ml @ 200 mls/hr Q6 IVPB Last administered on 02/21/19at 05:25; Admin Dose 200 MLS/HR; Start 02/17/19 at 09:30 Vancomycin HCl (Vanco Iv Per Pharmacy) VANCOMYCIN PER PHARMACY PER PROTOCOL XX ; Start 02/17/19 at 09:30 Insulin Glargine (Lantus) 36 units BID SC Last administered on 02/20/19at 20:18; Admin Dose 36 UNITS; Start 02/19/19 at 21:00 Albuterol/ Ipratropium (Duoneb) 3 ml Q2H RESP THERAPY PRN HHN SHORTNESS OF BREATH; Start 02/19/19 at 19:00 Lorazepam (Ativan) 0.5 mg Q12H PRN IV ANXIETY; Start 02/19/19 at 19:30 Famotidine (Pepcid Iv) 20 mg DAILY IV Last administered on 02/20/19at 09:17; Admin Dose 20 MG; Start 02/20/19 at 09:00 Propofol 100 ml @ 2.748 mls/ hr Q12H IV Last administered on 02/21/19at 04:37; Admin Dose 10.992 MLS/HR; Start 02/19/19 at 19:30 Midazolam HCl 50 ml @ 1 mls/hr TITRATE IV ; Start 02/19/19 at 21:00 Carvedilol (Coreg) 3.125 mg TID PO Last administered on 02/20/19at 20:05; Admin Dose 3.125 MG; Start 02/20/19 at 13:00 Vancomycin/Sodium Chloride 250 ml @ 83.333 mls/ hr Q24H IVPB Last administered on 02/20/19at 16:06; Admin Dose 83.333 MLS/HR; Start 02/20/19 at 16:00 Nystatin (Nystatin Oint) 1 applic BID TOP ; Start 02/21/19 at 09:00 PATSY JONES Feb 21, 2019 10:21
[2019-02-21] MEDS: INSULIN GLARGINE [LANTus] (100 UNITS/ML) SYG SC SCH ×2 (10:23→21:09)
[2019-02-21] MEDS: PIPERACILLIN/TAZO 3.375 GM in DEXTROSE 5% 100 ML IVPB SCH ×2 (14:44→20:37)
[2019-02-21] MEDS: VANCOMYCIN HCL 1.25 GM in DEXTROSE 5% 250 ML IVPB SCH (16:51)
[2019-02-21] MEDS: ATORVASTATIN 80 MG TAB NGT SCH (20:37)
[2019-02-22] VITALS (49 sets, daily range): BP systolic 121–168; BP diastolic 31–79; PULSE 60–76; RESP 12–28
[2019-02-22] MEDS: PIPERACILLIN/TAZO 3.375 GM in DEXTROSE 5% 100 ML IVPB SCH ×5 (00:31→23:47)
[2019-02-22] MEDS: INSULIN ASPART [NOVOLOG] 3 ML PEN SC SCH ×6 (01:01→20:34)
[2019-02-22] MEDS: PROPOFOL 100 ML IV SCH ×2 (06:04→19:55)
--- NOTE | 2019-02-22 08:15 | CONS ---
Consult Date/Type/Reason Admit Date/Time Feb 12, 2019 at 04:44 Initial Consult Date 02/20/19 Type of Consultation: cv Requesting Provider: PATSY JONES Date/Time of Note DATE: 02/22/19 TIME: 08:13 Subjective Cardiology follow-up progress note Subjective: Case discussed with staff and telemetry was reviewed. Patient has remained in normal sinus rhythm Patient remains intubated on the vent nonverbal blood pressure has remained stable to high now Objective: General: Obese female status post intubation on the ventilator HEENT: NC/AT. pupils are equal. round. NECK: Unable to assess for JVD. no stridor. CV: RRR. systolic murmur; no gallop or rubs. PULM: no wheezing + mild rhonchi. 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 Right leg wound noted neuro: Sedated but opens her eyes to verbal stimuli. follows basic command Psych: calm rectal: deferred : Deferred Echocardiogram was personally reviewed which shows: Normal left ventricular cavity size. Mild concentric left ventricular hypertrophy. Moderate left ventricular systolic dysfunction. Ejection fraction is visually estimated at 35 %. Tissue Doppler/Mitral Doppler indices are consistent with impaired relaxation (Stage I diastolic dysfunction). Multiple segmental wall motion abnormalities. Mitral valve leaflets appear mildly thickened. Mild mitral annular calcification. Trace mitral regurgitation. Normal appearance and function of the tricuspid valve with trace physiologic regurgitation. Normal right ventricular systolic pressure. suboptimal study. Chest x-ray done 02/19/2019 shows: There is mild atelectasis at the lung bases, unchanged. Mild pulmonary edema is unchanged. The heart size is normal. There are small bilateral pleural effusions. There is no pneumothorax. Objective Vitals Vital Signs Date Temp Pulse Resp B/P (MAP) Pulse Ox O2 O2 Flow FiO2 Time Delivery Rate 02/22/19 65 14 141/55 99 Mechanical 06:00 (83) Ventilator 02/22/19 30 05:15 02/22/19 98.7 04:00 02/19/19 3.0 17:00 Intake and Output 02/21/19 02/21/19 02/22/19 1414:59 22:59 06:59 IntakeIntake Total 434.7 ml 1012.944 ml 988.700 ml OutputOutput Total 440 ml 420 ml 400 ml BalanceBalance -5.3 ml 592.944 ml 588.700 ml Results/Medications Result Diagram: 02/22/19 0431 02/22/19 0431 Results 24 hrs Laboratory Tests Test 02/21/19 09:52 02/21/19 12:56 02/21/19 17:46 02/21/19 20:35 Bedside Glucose 96 80 114 132 Test 02/22/19 00:56 02/22/19 04:16 02/22/19 04:31 Bedside Glucose 181 142 White Blood Count 7.3 Red Blood Count 3.75 L Hemoglobin 11.0 L Hematocrit 35.9 L Mean Corpuscular 95.7 Volume Mean Corpuscular 29.3 Hemoglobin Mean Corpuscular 30.6 L Hemoglobin Concent Red Cell 13.1 Distribution Width Platelet Count 422 H Mean Platelet Volume 11.0 H Immature 0.500 H Granulocytes % Neutrophils % 64.1 Lymphocytes % 13.2 L Monocytes % 10.0 Eosinophils % 11.1 H Basophils % 1.1 Nucleated Red Blood 0.0 Cells % Immature 0.040 H Granulocytes # Neutrophils # 4.7 Lymphocytes # 1.0 Monocytes # 0.7 Eosinophils # 0.8 H Basophils # 0.1 Nucleated Red Blood 0.0 Cells # Sodium Level 148 H Potassium Level 3.5 Chloride Level 110 Carbon Dioxide Level 31 Anion Gap 7 Blood Urea Nitrogen 49 H Creatinine 1.32 H Est Glomerular Filtrat Rate mL/min Glucose Level 126 Calcium Level 8.5 Magnesium Level 2.6 H Total Bilirubin 0.3 Direct Bilirubin 0.00 Indirect Bilirubin 0.3 Aspartate Amino 48 H Transf (AST/SGOT) Alanine 118 H Aminotransferase (AL T/SGPT) Alkaline Phosphatase 102 B-Type Natriuretic 2400 H Peptide Total Protein 5.9 L Albumin 2.7 L Globulin 3.20 Albumin/Globulin 0.84 Ratio Home Meds Reported Medications Insulin Glargine,Hum.rec.anlog (Basaglar Kwikpen U-100) 100 Unit/1 Ml Insuln.pen, 0-12 UNIT SC QHS for PER SLIDING SCALE, EA 02/12/19 Insulin Aspart* (Novolog Insulin Pen*) 100 Unit/Ml Soln, 0-12 SC .SLIDING SCALE AC, EA 02/12/19 Dulaglutide (Trulicity) 1.5 Mg/0.5 Ml Pen.injctr, 1.5 MG SQ WEEKLY 02/12/19 Aspirin* (Aspirin* Chew) 81 Mg Tab.chew, 81 MG PO DAILY, TAB.CHEW 02/12/19 Clopidogrel Bisulfate (Clopidogrel) 75 Mg Tablet, 1 TAB ORAL DAILY 02/12/19 Tramadol HCl (Tramadol HCl) 50 Mg Tablet, 1 TAB ORAL Q6 PRN for PAIN LEVEL 4-6 02/12/19 Arginine Hcl (Arginine Hcl) 1 Gm Powder, 1 GM MC DAILY 02/12/19 Sacubitril/Valsartan (Entresto 49 mg-51 mg Tablet) 1 Each Tablet, 1 TAB ORAL DAILY 02/12/19 Atorvastatin* (Atorvastatin*) 80 Mg Tablet, 1 TAB ORAL QHS 02/12/19 Carvedilol* (Carvedilol*) 25 Mg Tablet, 1 TAB ORAL BID 02/12/19 Spironolactone* (Aldactone*) 25 Mg Tablet, 12.5 MG PO QAM, #60 TAB 02/12/19 Ampicillin Sodium-Sulbactam Sodium (Unasyn*) 3 Gm Soln, 3 GM IVPB Q6, VIAL 02/12/19 Medications Current Medications Ondansetron HCl (Zofran Inj) 4 mg Q6H PRN IV NAUSEA AND/OR VOMITING; Start 02/12/19 at 07:30 Ipratropium [place] (Atrovent Hfa) 2 puff Q2H RESP THERAPY PRN INH SHORTNESS OF BREATH; Start 02/12/19 at 07:30 Acetaminophen (Tylenol Liquid) 650 mg Q6H PRN PO PAIN LEVEL 1-3 OR FEVER Last administered on 02/17/19at 20:02; Admin Dose 650 MG; Start 02/12/19 at 07:30 Acetaminophen (Tylenol Supp) 650 mg Q4H PRN [place] PAIN LEVEL 1-3 OR FEVER; Start 02/12/19 at 07:30 Aspirin (Aspirin) 81 mg DAILY PO Last administered on 02/21/19at 09:51; Admin Dose 81 MG; Start 02/12/19 at 09:00 Clopidogrel Bisulfate (plaVIX) 75 mg DAILY NGT Last administered on 02/21/19at 09:51; Admin Dose 75 MG; Start 02/12/19 at 09:00 Atorvastatin Calcium (Lipitor) 80 mg QHS NGT Last administered on 02/21/19at 20:37; Admin Dose 80 MG; Start 02/12/19 at 21:00 Miscellaneous Information 1 ea NOTE XX ; Start 02/12/19 at 09:30 Glucose (Glutose) 15 gm Q15M PRN PO DECREASED GLUCOSE; Start 02/12/19 at 09:30 Glucose (Glutose) 22.5 gm Q15M PRN PO DECREASED GLUCOSE; Start 02/12/19 at 09:30 Dextrose (D50w Syringe) 25 ml Q15M PRN IV DECREASED GLUCOSE; Start 02/12/19 at 09:30 Dextrose (D50w Syringe) 50 ml Q15M PRN IV DECREASED GLUCOSE; Start 02/12/19 at 09:30 Glucagon (Glucagen) 1 mg Q15M PRN IM DECREASED GLUCOSE; Start 02/12/19 at 09:30 Glucose (Glutose) 15 gm Q15M PRN BUCCAL DECREASED GLUCOSE; Start 02/12/19 at 09:30 Insulin Aspart (Novolog Insulin Pen) NOVOLOG *MODERATE* ALGORI... Q4 SC Last administered on 02/22/19at 04:20; Admin Dose 2 UNIT; Start 02/12/19 at 23:07 Sodium Hypochlorite (Dakins Diluted (1/40)) 1 applic DAILY TP Last administered on 02/21/19at 09:54; Admin Dose 1 APPLIC; Start 02/15/19 at 09:00 Povidone Iodine (Povidone-Iodine) 1 applic DAILY TOP Last administered on 02/21/19at 09:54; Admin Dose 1 APPLIC; Start 02/14/19 at 20:00 Senna (Senokot) 2 tab BID NGT Last administered on 02/21/19at 20:37; Admin Dose 2 TAB; Start 02/15/19 at 21:00 Polyethylene Glycol (Miralax) 17 gm DAILY NGT Last administered on 02/18/19at 08:45; Admin Dose 17 GM; Start 02/16/19 at 09:00 Docusate Sodium (Colace Liquid Cup) 200 mg BID NGT Last administered on 02/21/19at 20:37; Admin Dose 200 MG; Start 02/17/19 at 09:00 Bisacodyl (Dulcolax Supp) 5 mg DAILY PRN [place] CONSTIPATION; Start 02/17/19 at 10:00 Vancomycin HCl (Vanco Iv Per Pharmacy) VANCOMYCIN PER PHARMACY PER PROTOCOL XX ; Start 02/17/19 at 09:30 Insulin Glargine (Lantus) 36 units BID SC Last administered on 02/21/19at 21:09; Admin Dose 36 UNITS; Start 02/19/19 at 21:00 Albuterol/ Ipratropium (Duoneb) 3 ml Q2H RESP THERAPY PRN HHN SHORTNESS OF BREATH; Start 02/19/19 at 19:00 Lorazepam (Ativan) 0.5 mg Q12H PRN IV ANXIETY; Start 02/19/19 at 19:30 Famotidine (Pepcid Iv) 20 mg DAILY IV Last administered on 02/21/19at 09:51; Admin Dose 20 MG; Start 02/20/19 at 09:00 Propofol 100 ml @ 2.748 mls/ hr Q12H IV Last administered on 02/22/19at 06:04; Admin Dose 8.244 MLS/HR; Start 02/19/19 at 19:30 Midazolam HCl 50 ml @ 1 mls/hr TITRATE IV ; Start 02/19/19 at 21:00 Carvedilol (Coreg) 3.125 mg TID PO Last administered on 02/21/19at 20:47; Admin Dose 3.125 MG; Start 02/20/19 at 13:00 Nystatin (Nystatin Oint) 1 applic BID TOP Last administered on 02/21/19at 20:47; Admin Dose 1 APPLIC; Start 02/21/19 at 09:00 Piperacillin Sod/ Tazobactam Sod 3.375 gm/Dextrose 100 ml @ 200 mls/hr Q6 IVPB Last administered on 02/22/19at 06:04; Admin Dose 200 MLS/HR; Start 02/21/19 at 12:00 Vancomycin HCl 1.25 gm/Dextrose 250 ml @ 83.333 mls/ hr Q24H IVPB Last administered on 02/21/19at 16:51; Admin Dose 83.333 MLS/HR; Start 02/21/19 at 16:00 Miscellaneous Information (* Miscellaneous Pharmacy Order) ANTIBIOTICS IN D5W FOR NOW ... DAILY XX ; Start 02/22/19 at 09:00 Miscellaneous Information (*Rx Drug Level Order Reminder*) VANCO TR AT 1500 1500 ONCE XX ; Start 02/23/19 at 15:00; Stop 02/23/19 at 15:01 Assessment/Plan Hospital Course (Demo Recall) Acute hypoxemic respiratory failure status post intubation now ventilatory dependent Congestive heart failure: Acute on chronic secondary systolic heart failure Sepsis Coronary artery disease with history of [place] History of ischemic cardiomyopathy ejection fraction of 35% History of multiple PCI Severe peripheral vascular disease status post left leg amputation as well as right leg severe PAD Hypertension diabetes dyslipidemia Hyponatremia Acute kidney injury Recommendations: Vent support respiratory care will be continued managed as per pulmonary. Continue with aspirin and Plavix diabetic control as per internal medicine We will cont carvedilol and inc as needed/tolerated Antibiotic management as per internal medicine ID recommendations DVT prophylaxis GI prophylaxis as per internal medicine Continue with ICU care Diuretics on hold not due to hyponatremia. We will adjusted daily as needed start lisinopril inc free water. replace K Thank you for his referral. We will continue to follow along with you YOGI NICOLAS MD [facility] YOGI NICOLAS MD Feb 22, 2019 08:15
[2019-02-22] MEDS ORDERED: POTASSIUM CHLORIDE 20 MEQ POWDER FOR ORAL SOLN NGT ONE (08:30)
[2019-02-22] MEDS: ASPIRIN 81 MG TAB PO SCH (08:33)
[2019-02-22] MEDS: POLYETHYLENE GLYCOL 17 GM PACKET NGT SCH (08:33)
[2019-02-22] MEDS: LISINOPRIL 5 MG TAB NGT SCH (08:33)
[2019-02-22] MEDS: CLOPIDOGREL 75 MG TAB NGT SCH (08:33)
[2019-02-22] MEDS: SENNA TAB NGT SCH ×2 (08:33→20:55)
[2019-02-22] MEDS: DOCUSATE SODIUM 10 MG/ML (10ML CUP) NGT SCH ×2 (08:34→20:34)
[2019-02-22] MEDS: POVIDONE IODINE 10% 28.4 GM OINT TOP SCH (08:38)
[2019-02-22] MEDS: BALSAM PERU/CASTOR OIL 60 GM TUBE TOP SCH ×2 (08:38→20:34)
[2019-02-22] MEDS: NYSTATIN 15 GM OINT TOP SCH ×2 (08:38→20:35)
[2019-02-22] MEDS: DAKINS 0.0125%(1/40) 473 ML SOLUTION TP SCH (08:38)
[2019-02-22] MEDS: INSULIN GLARGINE [LANTus] (100 UNITS/ML) SYG SC SCH ×2 (08:44→20:46)
[2019-02-22] MEDS: [UNRECOGNIZED DRUG - REMARK] XX SCH (09:00)
--- NOTE | 2019-02-22 09:36 | CONS ---
Assessment/Plan Assessment/Plan Assessment/Plan (Daily) Chest x-ray was reviewed from today which is essentially unremarkable with perhaps very minimal pulmonary vascular congestion. Ventilator setting; AC of 16, tidal volume 500, PEEP of 5, 30% FiO2. Assessment and recommendations; 1. Patient admitted with respiratory failure due to CHF exacerbation due to underlying cardiomyopathy. 2. Patient requiring reintubation 24 hours later after extubation because of possible aspiration as well as worsening CHF. 3. Severe peripheral vascular disease. 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 4. Right foot ulcer. 5. History of diabetes. 6. CAD with prior coronary intervention. 7. Acute renal injury with hypernatremia with interval improvement. Patient off diuretics. 8. History of hypertension. 9. Left lower lobe pneumonia with interval improvement. 10. Anemia. Perform another CPAP trial as tolerated. Continue other supportive measures. Patient possibly may require a tracheostomy. Prognosis is guarded. 35 minutes of critical care time was spent evaluating patient. Consultation Date/Type/Reason Admit Date/Time Feb 12, 2019 at 04:44 Initial Consult Date 02/13/19 Type of Consult Pulmonary/critical care Patient is a 73-year-old lady who was admitted to the hospital with complaints of shortness of breath. Patient was in respiratory failure and had to be intubated and then transferred to ICU. By the time I saw her, patient is orally intubated and sedated with propofol drip. Patient did not appear to be in any distress whatsoever. Per medical records, no CPR was done. Past medical history; 1. 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 2. Diabetes. 3. Peripheral vascular disease. With multiple right lower extremity surgeries as well. 4. CHF. 5. Chronic steroid use. Diagnosis is unclear. Medications; reviewed. Allergies; as outlined above. Family history, occupational history, social history are not available. Review of system; unable to be obtained. General exam; elderly female, orally intubated, sedated, currently in no distress. Requesting Provider: PATSY JONES Date/Time of Note DATE: 02/22/19 TIME: 09:32 24 HR Interval Summary Free Text/Dictation Patient's condition remains critical. Patient however has remained hemodynami taryn stable. Patient failed a CPAP trial yesterday. General exam; elderly woman, appears overweight, orally intubated. Awake and alert. Currently in no distress. Exam/Review of Systems Exam Vitals Vital Signs Date Temp Pulse Resp B/P (MAP) Pulse Ox O2 O2 Flow FiO2 Time Delivery Rate 02/22/19 67 08:00 02/22/19 14 141/55 99 Mechanical 06:00 (83) Ventilator 02/22/19 30 05:15 02/22/19 98.7 04:00 02/19/19 3.0 17:00 Intake and Output 02/21/19 02/21/19 02/22/19 1515:00 23:00 07:00 IntakeIntake Total 432.0 ml 1015.688 ml 940.456 ml OutputOutput Total 440 ml 415 ml 350 ml BalanceBalance -8.0 ml 600.688 ml 590.456 ml Exam H EENT exam; supple neck, positive JVD. No lymphadenopathy. Midline trachea. No thyromegaly. Orally intubated. Pupils are small bilaterally. No neck masses. Chest exam; diminished but clear breath sounds. S1-S2 audible, no murmurs. Regular rhythm. Abdomen exam; soft, mildly protuberant. Nontender. No organomegaly. Bowel sounds are audible. Extremity exam; no peripheral edema. Left leg is amputated at hip. Multiple scars are present in right lower extremity. Dressing applied to right foot. [employer] exam; patient awake and follows simple commands. Results Result Diagram: 02/22/19 0431 02/22/19 0431 Results 24hrs Laboratory Tests Test 02/21/19 09:52 02/21/19 12:56 02/21/19 17:46 02/21/19 20:35 Bedside Glucose 96 80 114 132 Test 02/22/19 00:56 02/22/19 04:16 02/22/19 04:31 02/22/19 08:37 Bedside Glucose 181 142 106 White Blood Count 7.3 Red Blood Count 3.75 L Hemoglobin 11.0 L Hematocrit 35.9 L Mean Corpuscular 95.7 Volume Mean Corpuscular 29.3 Hemoglobin Mean Corpuscular 30.6 L Hemoglobin Concent Red Cell 13.1 Distribution Width Platelet Count 422 H Mean Platelet Volume 11.0 H Immature 0.500 H Granulocytes % Neutrophils % 64.1 Lymphocytes % 13.2 L Monocytes % 10.0 Eosinophils % 11.1 H Basophils % 1.1 Nucleated Red Blood 0.0 Cells % Immature 0.040 H Granulocytes # Neutrophils # 4.7 Lymphocytes # 1.0 Monocytes # 0.7 Eosinophils # 0.8 H Basophils # 0.1 Nucleated Red Blood 0.0 Cells # Sodium Level 148 H Potassium Level 3.5 Chloride Level 110 Carbon Dioxide Level 31 Anion Gap 7 Blood Urea Nitrogen 49 H Creatinine 1.32 H Est Glomerular Filtrat Rate mL/min Glucose Level 126 Calcium Level 8.5 Magnesium Level 2.6 H Total Bilirubin 0.3 Direct Bilirubin 0.00 Indirect Bilirubin 0.3 Aspartate Amino 48 H Transf (AST/SGOT) Alanine 118 H Aminotransferase (AL T/SGPT) Alkaline Phosphatase 102 B-Type Natriuretic 2400 H Peptide Total Protein 5.9 L Albumin 2.7 L Globulin 3.20 Albumin/Globulin 0.84 Ratio Medications Medication Current Medications Ondansetron HCl (Zofran Inj) 4 mg Q6H PRN IV NAUSEA AND/OR VOMITING; Start 02/12/19 at 07:30 Ipratropium [place] (Atrovent Hfa) 2 puff Q2H RESP THERAPY PRN INH SHORTNESS OF BREATH; Start 02/12/19 at 07:30 Acetaminophen (Tylenol Liquid) 650 mg Q6H PRN PO PAIN LEVEL 1-3 OR FEVER Last administered on 02/17/19at 20:02; Admin Dose 650 MG; Start 02/12/19 at 07:30 Acetaminophen (Tylenol Supp) 650 mg Q4H PRN NE PAIN LEVEL 1-3 OR FEVER; Start 02/12/19 at 07:30 Aspirin (Aspirin) 81 mg DAILY PO Last administered on 02/22/19at 08:33; Admin Dose 81 MG; Start 02/12/19 at 09:00 Clopidogrel Bisulfate (plaVIX) 75 mg DAILY NGT Last administered on 02/22/19at 08:33; Admin Dose 75 MG; Start 02/12/19 at 09:00 Atorvastatin Calcium (Lipitor) 80 mg QHS NGT Last administered on 02/21/19at 20:37; Admin Dose 80 MG; Start 02/12/19 at 21:00 Miscellaneous Information 1 ea NOTE XX ; Start 02/12/19 at 09:30 Glucose (Glutose) 15 gm Q15M PRN PO DECREASED GLUCOSE; Start 02/12/19 at 09:30 Glucose (Glutose) 22.5 gm Q15M PRN PO DECREASED GLUCOSE; Start 02/12/19 at 09:30 Dextrose (D50w Syringe) 25 ml Q15M PRN IV DECREASED GLUCOSE; Start 02/12/19 at 09:30 Dextrose (D50w Syringe) 50 ml Q15M PRN IV DECREASED GLUCOSE; Start 02/12/19 at 09:30 Glucagon (Glucagen) 1 mg Q15M PRN IM DECREASED GLUCOSE; Start 02/12/19 at 09:30 Glucose (Glutose) 15 gm Q15M PRN BUCCAL DECREASED GLUCOSE; Start 02/12/19 at 09:30 Insulin Aspart (Novolog Insulin Pen) NOVOLOG *MODERATE* ALGORI... Q4 SC Last administered on 02/22/19at 04:20; Admin Dose 2 UNIT; Start 02/12/19 at 23:07 Sodium Hypochlorite (Dakins Diluted ()) 1 applic DAILY TP Last administered on 02/22/19at 08:38; Admin Dose 1 APPLIC; Start 02/15/19 at 09:00 Povidone Iodine (Povidone-Iodine) 1 applic DAILY TOP Last administered on 02/22/19at 08:38; Admin Dose 1 APPLIC; Start 02/14/19 at 20:00 Senna (Senokot) 2 tab BID NGT Last administered on 02/22/19at 08:33; Admin Dose 2 TAB; Start 02/15/19 at 21:00 Polyethylene Glycol (Miralax) 17 gm DAILY NGT Last administered on 02/18/19at 08:45; Admin Dose 17 GM; Start 02/16/19 at 09:00 Docusate Sodium (Colace Liquid Cup) 200 mg BID NGT Last administered on 02/21/19at 20:37; Admin Dose 200 MG; Start 02/17/19 at 09:00 Bisacodyl (Dulcolax Supp) 5 mg DAILY PRN [place] CONSTIPATION; Start 02/17/19 at 10:00 Vancomycin HCl (Vanco Iv Per Pharmacy) VANCOMYCIN PER PHARMACY PER PROTOCOL XX ; Start 02/17/19 at 09:30 Insulin Glargine (Lantus) 36 units BID SC Last administered on 02/22/19at 08:44; Admin Dose 36 UNITS; Start 02/19/19 at 21:00 Albuterol/ Ipratropium (Duoneb) 3 ml Q2H RESP THERAPY PRN HHN SHORTNESS OF BREATH; Start 02/19/19 at 19:00 Lorazepam (Ativan) 0.5 mg Q12H PRN IV ANXIETY; Start 02/19/19 at 19:30 Famotidine (Pepcid Iv) 20 mg DAILY IV Last administered on 02/21/19 09:51; Admin Dose 20 MG; Start 02/20/19 at 09:00 Propofol 100 ml @ 2.748 mls/ hr Q12H IV Last administered on 02/22/19at 06:04; Admin Dose 8.244 MLS/HR; Start 02/19/19 at 19:30 Midazolam HCl 50 ml @ 1 mls/hr TITRATE IV ; Start 02/19/19 at 21:00 Nystatin (Nystatin Oint) 1 applic BID TOP Last administered on 02/22/19at 08:38; Admin Dose 1 APPLIC; Start 02/21/19 at 09:00 Piperacillin Sod/ Tazobactam Sod 3.375 gm/Dextrose 100 ml @ 200 mls/hr Q6 IVPB Last administered on 02/22/19at 06:04; Admin Dose 200 MLS/HR; Start 02/21/19 at 12:00 Vancomycin HCl 1.25 gm/Dextrose 250 ml @ 83.333 mls/ hr Q24H IVPB Last administered on 02/21/19 16:51; Admin Dose 83.333 MLS/HR; Start 02/21/19 at 16:00 Miscellaneous Information (* Miscellaneous Pharmacy Order) ANTIBIOTICS IN D5W FOR NOW ... DAILY XX ; Start 02/22/19 at 09:00 Miscellaneous Information (*Rx Drug Level Order Reminder*) VANCO TR AT 1500 1500 ONCE XX ; Start 02/23/19 at 15:00; Stop 02/23/19 at 15:01 Carvedilol (Coreg) 6.25 mg BID PO Last administered on 02/22/19 08:33; Admin Dose 6.25 MG; Start 02/22/19 at 09:00 Lisinopril (Zestril) 5 mg DAILY NGT Last administered on 02/22/19 08:33; Admin Dose 5 MG; Start 02/22/19 at 09:00 SANTHOSH GABRIEL Feb 22, 2019 09:36
--- NOTE | 2019-02-22 09:46 | PN ---
Date/Time of Note Date/Time of Note DATE: 02/22/19 TIME: 09:42 Assessment/Plan VTE Prophylaxis Risk score (from Nsg)>0 risk: 10 SCD applied (from Nsg): Yes Pharmacological prophylaxis: other Lines/Catheters IV Catheter Type (from Nrsg): PICC Line Central line still needed: Yes Urinary Cath still in place: Yes Reason Cath still needed: urinary retention Assessment/Plan Hospital Course S: Patient undergoing another CPAP trial presently. No acute events overnight. O: VS- see below PE: Gen: Morbidly obese woman lying in bed, intubated HEENT: Opens eyes occasionally Neck: Supple, no lymphadenopathy. Card: Regular rate and rhythm, no murmurs. Pulm: Slightly distant breath sounds bilaterally, no crackles Abd: Soft, nontender, nondistended. Hypoactive bowel sounds. 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 R leg with well healed bypass scar below the knee. Skin: R lower leg erythema has resolved. Right great toe medial ulcer, clean based, no drainage, no surrounding erythema. 2D echo February 19, 2019: Conclusions: Normal left ventricular cavity size. Mild concentric left ventricular hypertrophy. Moderate left ventricular systolic dysfunction. Ejection fraction is visually estimated at 35 %. Tissue Doppler/Mitral Doppler indices are consistent with impaired relaxation (Stage I diastolic dysfunction). Multiple segmental wall motion abnormalities. Mitral valve leaflets appear mildly thickened. Mild mitral annular calcification. Trace mitral regurgitation. Normal appearance and function of the tricuspid valve with trace physiologic regurgitation. Normal right ventricular systolic pressure. suboptimal study. Assessment/Plan: 73 yo morbidly obese woman history of peripheral vascular disease, diabetes type II, CHF, likely COPD presents with acute respiratory failure due to CHF exacerbation. #Sepsis-slowly improving, wound culture positive for MRSA, Klebsiella, enterococcus, yeast. No fevers in the last 48 hours. Of note patient developed fever to 102 on 02/17. Wound culture positive for polymicrobial growth. -For now continue empiric vanco and zosyn, follow final results of blood and urine cultures -Continue wound care as needed for the right toe ulcer -Consider ID consult if symptoms worsen #Acute respiratory failure-again had to be reintubated 3 days ago. CTPA negative for PE - Likely CHF exacerbation. Echocardiogram performed 2 days ago, shows ejection fraction 35% -Monitor for now, follow pulmonary recommendations regarding ventilator settings -Follow-up results of the CPAP trial, and cardiology recommendations #Peripheral vascular disease - Cont aspirin, plavix, statin #Diabetic/vascular right foot ulcer- Patient also has outpatient vascular follo wup- Patient has failed R sided revascularization in the past; per Vascular Dr Naidu repeat attempt at revascularization would be unwise. Wound swab was done which is positive for bacterial growth polymicrobial - Continue supportive treatment with local wound care and antibiotics for now, no debridement planned. #VICTOR M- May have been due to unstable hemodynamics on admission; or contrast load from CTPA- Now resolving, creatinine still on the 1.3-1.4 range. -Monitor BUN/creatinine levels, continue free water per clinical program consultant teams #Diabetes type II, insulin dependent. A1c was 9.7, sugars are stable -Continue Lantus at current dose, aspart with meals, sliding scale, monitor sugars #CHF-again echo results noted -Monitor, continue low-dose beta-nabeel per cardiology recommendations -Follow-up further cardiology recommendations # hypernatremia: Sodium slightly improved from yesterday, down to 148 -Continue free water for now, follow-up basic metabolic panel in the a.m. #History of DVT- LE duplex negative for DVT. 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 GI: famotidine DVT: None Critical care time spent in patient care today equals 45 minutes Result Diagram: 02/22/19 0431 02/22/19 0431 Results 24hrs Laboratory Tests Test 02/21/19 09:52 02/21/19 12:56 02/21/19 17:46 02/21/19 20:35 Bedside Glucose 96 80 114 132 Test 02/22/19 00:56 02/22/19 04:16 02/22/19 04:31 02/22/19 08:37 Bedside Glucose 181 142 106 White Blood Count 7.3 Red Blood Count 3.75 L Hemoglobin 11.0 L Hematocrit 35.9 L Mean Corpuscular 95.7 Volume Mean Corpuscular 29.3 Hemoglobin Mean Corpuscular 30.6 L Hemoglobin Concent Red Cell 13.1 Distribution Width Platelet Count 422 H Mean Platelet Volume 11.0 H Immature 0.500 H Granulocytes % Neutrophils % 64.1 Lymphocytes % 13.2 L Monocytes % 10.0 Eosinophils % 11.1 H Basophils % 1.1 Nucleated Red Blood 0.0 Cells % Immature 0.040 H Granulocytes # Neutrophils # 4.7 Lymphocytes # 1.0 Monocytes # 0.7 Eosinophils # 0.8 H Basophils # 0.1 Nucleated Red Blood 0.0 Cells # Sodium Level 148 H Potassium Level 3.5 Chloride Level 110 Carbon Dioxide Level 31 Anion Gap 7 Blood Urea Nitrogen 49 H Creatinine 1.32 H Est Glomerular Filtrat Rate mL/min Glucose Level 126 Calcium Level 8.5 Magnesium Level 2.6 H Total Bilirubin 0.3 Direct Bilirubin 0.00 Indirect Bilirubin 0.3 Aspartate Amino 48 H Transf (AST/SGOT) Alanine 118 H Aminotransferase (AL T/SGPT) Alkaline Phosphatase 102 B-Type Natriuretic 2400 H Peptide Total Protein 5.9 L Albumin 2.7 L Globulin 3.20 Albumin/Globulin 0.84 Ratio Exam/Review of Systems Exam Vitals Vital Signs Date Temp Pulse Resp B/P (MAP) Pulse Ox O2 O2 Flow FiO2 Time Delivery Rate 02/22/19 67 08:00 02/22/19 14 141/55 99 Mechanical 06:00 (83) Ventilator 02/22/19 30 05:15 02/22/19 98.7 04:00 02/19/19 3.0 17:00 Intake and Output 02/21/19 02/21/19 02/22/19 1515:00 23:00 07:00 IntakeIntake Total 432.0 ml 1015.688 ml 940.456 ml OutputOutput Total 440 ml 415 ml 350 ml BalanceBalance -8.0 ml 600.688 ml 590.456 ml Results Results 24hrs Laboratory Tests Test 02/21/19 09:52 02/21/19 12:56 02/21/19 17:46 02/21/19 20:35 Bedside Glucose 96 80 114 132 Test 02/22/19 00:56 02/22/19 04:16 02/22/19 04:31 02/22/19 08:37 Bedside Glucose 181 142 106 White Blood Count 7.3 Red Blood Count 3.75 L Hemoglobin 11.0 L Hematocrit 35.9 L Mean Corpuscular 95.7 Volume Mean Corpuscular 29.3 Hemoglobin Mean Corpuscular 30.6 L Hemoglobin Concent Red Cell 13.1 Distribution Width Platelet Count 422 H Mean Platelet Volume 11.0 H Immature 0.500 H Granulocytes % Neutrophils % 64.1 Lymphocytes % 13.2 L Monocytes % 10.0 Eosinophils % 11.1 H Basophils % 1.1 Nucleated Red Blood 0.0 Cells % Immature 0.040 H Granulocytes # Neutrophils # 4.7 Lymphocytes # 1.0 Monocytes # 0.7 Eosinophils # 0.8 H Basophils # 0.1 Nucleated Red Blood 0.0 Cells # Sodium Level 148 H Potassium Level 3.5 Chloride Level 110 Carbon Dioxide Level 31 Anion Gap 7 Blood Urea Nitrogen 49 H Creatinine 1.32 H Est Glomerular Filtrat Rate mL/min Glucose Level 126 Calcium Level 8.5 Magnesium Level 2.6 H Total Bilirubin 0.3 Direct Bilirubin 0.00 Indirect Bilirubin 0.3 Aspartate Amino 48 H Transf (AST/SGOT) Alanine 118 H Aminotransferase (AL T/SGPT) Alkaline Phosphatase 102 B-Type Natriuretic 2400 H Peptide Total Protein 5.9 L Albumin 2.7 L Globulin 3.20 Albumin/Globulin 0.84 Ratio Medications Medication Current Medications Ondansetron HCl (Zofran Inj) 4 mg Q6H PRN IV NAUSEA AND/OR VOMITING; Start 02/12/19 at 07:30 Ipratropium [place] (Atrovent Hfa) 2 puff Q2H RESP THERAPY PRN INH SHORTNESS OF BREATH; Start 02/12/19 at 07:30 Acetaminophen (Tylenol Liquid) 650 mg Q6H PRN PO PAIN LEVEL 1-3 OR FEVER Last administered on 02/17/19at 20:02; Admin Dose 650 MG; Start 02/12/19 at 07:30 Acetaminophen (Tylenol Supp) 650 mg Q4H PRN [place] PAIN LEVEL 1-3 OR FEVER; Start 02/12/19 at 07:30 Aspirin (Aspirin) 81 mg DAILY PO Last administered on 02/22/19at 08:33; Admin Dose 81 MG; Start 02/12/19 at 09:00 Clopidogrel Bisulfate (plaVIX) 75 mg DAILY NGT Last administered on 02/22/19at 08:33; Admin Dose 75 MG; Start 02/12/19 at 09:00 Atorvastatin Calcium (Lipitor) 80 mg QHS NGT Last administered on 02/21/19at 20:37; Admin Dose 80 MG; Start 02/12/19 at 21:00 Miscellaneous Information 1 ea NOTE XX ; Start 02/12/19 at 09:30 Glucose (Glutose) 15 gm Q15M PRN PO DECREASED GLUCOSE; Start 02/12/19 at 09:30 Glucose (Glutose) 22.5 gm Q15M PRN PO DECREASED GLUCOSE; Start 02/12/19 at 09:30 Dextrose (D50w Syringe) 25 ml Q15M PRN IV DECREASED GLUCOSE; Start 02/12/19 at 09:30 Dextrose (D50w Syringe) 50 ml Q15M PRN IV DECREASED GLUCOSE; Start 02/12/19 at 09:30 Glucagon (Glucagen) 1 mg Q15M PRN IM DECREASED GLUCOSE; Start 02/12/19 at 09:30 Glucose (Glutose) 15 gm Q15M PRN BUCCAL DECREASED GLUCOSE; Start 02/12/19 at 09:30 Insulin Aspart (Novolog Insulin Pen) NOVOLOG *MODERATE* ALGORI... Q4 SC Last administered on 02/22/19at 04:20; Admin Dose 2 UNIT; Start 02/12/19 at 23:07 Sodium Hypochlorite (Dakins Diluted (40)) 1 applic DAILY TP Last administered on 02/22/19at 08:38; Admin Dose 1 APPLIC; Start 02/15/19 at 09:00 Povidone Iodine (Povidone-Iodine) 1 applic DAILY TOP Last administered on 02/22/19at 08:38; Admin Dose 1 APPLIC; Start 02/14/19 at 20:00 Senna (Senokot) 2 tab BID NGT Last administered on 02/22/19at 08:33; Admin Dose 2 TAB; Start 02/15/19 at 21:00 Polyethylene Glycol (Miralax) 17 gm DAILY NGT Last administered on 02/18/19at 08:45; Admin Dose 17 GM; Start 02/16/19 at 09:00 Docusate Sodium (Colace Liquid Cup) 200 mg BID NGT Last administered on 02/21/19at 20:37; Admin Dose 200 MG; Start 02/17/19 at 09:00 Bisacodyl (Dulcolax Supp) 5 mg DAILY PRN [place] CONSTIPATION; Start 02/17/19 at 10:00 Vancomycin HCl (Vanco Iv Per Pharmacy) VANCOMYCIN PER PHARMACY PER PROTOCOL XX ; Start 02/17/19 at 09:30 Insulin Glargine (Lantus) 36 units BID SC Last administered on 02/22/19at 08:44; Admin Dose 36 UNITS; Start 02/19/19 at 21:00 Albuterol/ Ipratropium (Duoneb) 3 ml Q2H RESP THERAPY PRN HHN SHORTNESS OF BREATH; Start 02/19/19 at 19:00 Lorazepam (Ativan) 0.5 mg Q12H PRN IV ANXIETY; Start 02/19/19 at 19:30 Famotidine (Pepcid Iv) 20 mg DAILY IV Last administered on 02/21/19at 09:51; Admin Dose 20 MG; Start 02/20/19 at 09:00 Propofol 100 ml @ 2.748 mls/ hr Q12H IV Last administered on 02/22/19at 06:04; Admin Dose 8.244 MLS/HR; Start 02/19/19 at 19:30 Midazolam HCl 50 ml @ 1 mls/hr TITRATE IV ; Start 02/19/19 at 21:00 Nystatin (Nystatin Oint) 1 applic BID TOP Last administered on 02/22/19at 08:38; Admin Dose 1 APPLIC; Start 02/21/19 at 09:00 Piperacillin Sod/ Tazobactam Sod 3.375 gm/Dextrose 100 ml @ 200 mls/hr Q6 IVPB Last administered on 02/22/19at 06:04; Admin Dose 200 MLS/HR; Start 02/21/19 at 12:00 Vancomycin HCl 1.25 gm/Dextrose 250 ml @ 83.333 mls/ hr Q24H IVPB Last administered on 02/21/19at 16:51; Admin Dose 83.333 MLS/HR; Start 02/21/19 at 16:00 Miscellaneous Information (* Miscellaneous Pharmacy Order) ANTIBIOTICS IN D5W FO R NOW ... DAILY XX ; Start 02/22/19 at 09:00 Miscellaneous Information (*Rx Drug Level Order Reminder*) VANCO TR AT 1500 1500 ONCE XX ; Start 02/23/19 at 15:00; Stop 02/23/19 at 15:01 Carvedilol (Coreg) 6.25 mg BID PO Last administered on 02/22/19at 08:33; Admin Dose 6.25 MG; Start 02/22/19 at 09:00 Lisinopril (Zestril) 5 mg DAILY NGT Last administered on 02/22/19at 08:33; Admin Dose 5 MG; Start 02/22/19 at 09:00 PATSY JONES Feb 22, 2019 09:46
[2019-02-22] MEDS: FAMOTIDINE 20 MG INJ IV SCH (12:02)
[2019-02-22] MEDS: VANCOMYCIN HCL 1.25 GM in DEXTROSE 5% 250 ML IVPB SCH (15:36)
[2019-02-22] MEDS: ATORVASTATIN 80 MG TAB NGT SCH (20:35)
[2019-02-23] VITALS (52 sets, daily range): BP systolic 93–190; BP diastolic 46–137; PULSE 57–74; RESP 13–33
[2019-02-23] MEDS: INSULIN ASPART [NOVOLOG] 3 ML PEN SC SCH ×6 (00:28→20:07)
[2019-02-23] MEDS: PROPOFOL 100 ML IV SCH ×2 (03:35→18:03)
[2019-02-23] MEDS: PIPERACILLIN/TAZO 3.375 GM in DEXTROSE 5% 100 ML IVPB SCH ×3 (05:19→18:01)
--- NOTE | 2019-02-23 08:06 | CONS ---
Consult Date/Type/Reason Admit Date/Time Feb 12, 2019 at 04:44 Initial Consult Date 02/20/19 Type of Consultation: cv Requesting Provider: PATSY JONES Date/Time of Note DATE: 02/23/19 TIME: 08:02 Subjective Cardiology follow-up progress note Subjective: Case discussed with staff and telemetry was reviewed. Patient has remained in normal sinus rhythm Patient remains intubated on the vent nonverbal blood pressure has remained stable /high now There is no report of any chest pain or pressure Objective: General: Obese female status post intubation on the ventilator HEENT: NC/AT. pupils are equal. round. NECK: Unable to assess for JVD. no stridor. CV: RRR. systolic murmur; no gallop or rubs. PULM: no wheezing + mild rhonchi. 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 Right leg wound noted neuro: Sedated Psych: calm rectal: deferred : Deferred Echocardiogram was personally reviewed which shows: Normal left ventricular cavity size. Mild concentric left ventricular hy pertrophy. Moderate left ventricular systolic dysfunction. Ejection fraction is visually estimated at 35 %. Tissue Doppler/Mitral Doppler indices are consistent with impaired relaxation (Stage I diastolic dysfunction). Multiple segmental wall motion abnormalities. Mitral valve leaflets appear mildly thickened. Mild mitral annular calcification. Trace mitral regurgitation. Normal appearance and function of the tricuspid valve with trace physiologic regurgitation. Normal right ventricular systolic pressure. suboptimal study. Chest x-ray done 02/19/2019 shows: There is mild atelectasis at the lung bases, unchanged. Mild pulmonary edema is unchanged. The heart size is normal. There are small bilateral pleural effusions. There is no pneumothorax. cxr 02/22 reviewed 1. Interval decreased central pulmonary vascular congestion. 2. Stable cardiomegaly with aortic atherosclerosis. 3. Stable position of support devices. Objective Vitals Vital Signs Date Temp Pulse Resp B/P (MAP) Pulse Ox O2 O2 Flow FiO2 Time Delivery Rate 02/23/19 69 16 133/68 100 Mechanical 07:00 (89) Ventilator 02/23/19 30 05:20 02/23/19 99.7 04:00 02/19/19 3.0 17:00 Intake and Output 02/22/19 02/22/19 02/23/19 1515:00 23:00 07:00 IntakeIntake Total 631.220 ml 1202.976 ml 1102.440 ml OutputOutput Total 260 ml 535 ml 615 ml BalanceBalance 371.220 ml 667.976 ml 487.440 ml Results/Medications Result Diagram: 02/23/19 0505 02/23/19 0500 Results 24 hrs Laboratory Tests Test 02/22/19 08:37 02/22/19 12:38 02/22/19 13:15 02/22/19 16:40 Bedside Glucose 106 102 94 Urine Color YELLOW Urine Clarity CLEAR Urine pH 8.0 Urine Specific 1.015 [place] Urine Ketones NEGATIVE Urine Nitrite NEGATIVE Urine Bilirubin NEGATIVE Urine Urobilinogen NEGATIVE Urine Leukocyte 1+ H Esterase Urine Microscopic > 182 H RBC Urine Microscopic 32 H WBC Urine Yeast FEW A (Budding) Urine Hemoglobin 2+ H Urine Glucose NEGATIVE Urine Total Protein 1+ H Test 02/22/19 20:34 02/23/19 00:28 02/23/19 04:28 02/23/19 05:00 Bedside Glucose 107 129 102 Sodium Level 141 Potassium Level 4.2 Chloride Level 108 Carbon Dioxide Level 26 Anion Gap 7 Blood Urea Nitrogen 39 H Creatinine 1.21 H Est Glomerular Filtrat Rate mL/min Glucose Level 103 Calcium Level 8.5 Test 02/23/19 05:05 White Blood Count 9.2 # Red Blood Count 3.86 L Hemoglobin 11.3 L Hematocrit 37.0 Mean Corpuscular 95.9 Volume Mean Corpuscular 29.3 Hemoglobin Mean Corpuscular 30.5 L Hemoglobin Concent Red Cell 13.0 Distribution Width Platelet Count 421 H Mean Platelet Volume 10.9 H Immature 0.500 H Granulocytes % Neutrophils % 70.8 Lymphocytes % 12.6 L Monocytes % 7.3 Eosinophils % 7.8 H Basophils % 1.0 Nucleated Red Blood 0.0 Cells % Immature 0.050 H Granulocytes # Neutrophils # 6.5 Lymphocytes # 1.2 Monocytes # 0.7 Eosinophils # 0.7 H Basophils # 0.1 Nucleated Red Blood 0.0 Cells # Magnesium Level 2.5 B-Type Natriuretic 2250 H Peptide Home Meds Reported Medications Insulin Glargine,Hum.rec.anlog (Basaglar Kwikpen U-100) 100 Unit/1 Ml Insuln.pen, 0-12 UNIT SC QHS for PER SLIDING SCALE, EA 02/12/19 Insulin Aspart* (Novolog Insulin Pen*) 100 Unit/Ml Soln, 0-12 SC .SLIDING SCALE AC, EA 02/12/19 Dulaglutide (Trulicity) 1.5 Mg/0.5 Ml Pen.injctr, 1.5 MG SQ WEEKLY 02/12/19 Aspirin* (Aspirin* Chew) 81 Mg Tab.chew, 81 MG PO DAILY, TAB.CHEW 02/12/19 Clopidogrel Bisulfate (Clopidogrel) 75 Mg Tablet, 1 TAB ORAL DAILY 02/12/19 Tramadol HCl (Tramadol HCl) 50 Mg Tablet, 1 TAB ORAL Q6 PRN for PAIN LEVEL 4-6 02/12/19 Arginine Hcl (Arginine Hcl) 1 Gm Powder, 1 GM MC DAILY 02/12/19 Sacubitril/Valsartan (Entresto 49 mg-51 mg Tablet) 1 Each Tablet, 1 TAB ORAL DAILY 02/12/19 Atorvastatin* (Atorvastatin*) 80 Mg Tablet, 1 TAB ORAL QHS 02/12/19 Carvedilol* (Carvedilol*) 25 Mg Tablet, 1 TAB ORAL BID 02/12/19 Spironolactone* (Aldactone*) 25 Mg Tablet, 12.5 MG PO QAM, #60 TAB 02/12/19 Ampicillin Sodium-Sulbactam Sodium (Unasyn*) 3 Gm Soln, 3 GM IVPB Q6, VIAL 02/12/19 Medications Current Medications Ondansetron HCl (Zofran Inj) 4 mg Q6H PRN IV NAUSEA AND/OR VOMITING; Start 02/12/19 at 07:30 Ipratropium [place] (Atrovent Hfa) 2 puff Q2H RESP THERAPY PRN INH SHORTNESS OF BREATH; Start 02/12/19 at 07:30 Acetaminophen (Tylenol Liquid) 650 mg Q6H PRN PO PAIN LEVEL 1-3 OR FEVER Last administered on 02/17/19at 20:02; Admin Dose 650 MG; Start 02/12/19 at 07:30 Acetaminophen (Tylenol Supp) 650 mg Q4H PRN [place] PAIN LEVEL 1-3 OR FEVER; Start 02/12/19 at 07:30 Aspirin (Aspirin) 81 mg DAILY PO Last administered on 02/22/19at 08:33; Admin Dose 81 MG; Start 02/12/19 at 09:00 Clopidogrel Bisulfate (plaVIX) 75 mg DAILY NGT Last administered on 02/22/19 08:33; Admin Dose 75 MG; Start 02/12/19 at 09:00 Atorvastatin Calcium (Lipitor) 80 mg QHS NGT Last administered on 02/22/19at 20:35; Admin Dose 80 MG; Start 02/12/19 at 21:00 Miscellaneous Information 1 ea NOTE XX ; Start 02/12/19 at 09:30 Glucose (Glutose) 15 gm Q15M PRN PO DECREASED GLUCOSE; Start 02/12/19 at 09:30 Glucose (Glutose) 22.5 gm Q15M PRN PO DECREASED GLUCOSE; Start 02/12/19 at 09:30 Dextrose (D50w Syringe) 25 ml Q15M PRN IV DECREASED GLUCOSE; Start 02/12/19 at 09:30 Dextrose (D50w Syringe) 50 ml Q15M PRN IV DECREASED GLUCOSE; Start 02/12/19 at 09:30 Glucagon (Glucagen) 1 mg Q15M PRN IM DECREASED GLUCOSE; Start 02/12/19 at 09:30 Glucose (Glutose) 15 gm Q15M PRN BUCCAL DECREASED GLUCOSE; Start 02/12/19 at 09:30 Insulin Aspart (Novolog Insulin Pen) NOVOLOG *MODERATE* ALGORI... Q4 SC Last administered on 02/22/19 04:20; Admin Dose 2 UNIT; Start 02/12/19 at 23:07 Sodium Hypochlorite (Dakins Diluted (1/40)) 1 applic DAILY TP Last administered on 02/22/19 08:38; Admin Dose 1 APPLIC; Start 02/15/19 at 09:00 Povidone Iodine (Povidone-Iodine) 1 applic DAILY TOP Last administered on 02/22/19 08:38; Admin Dose 1 APPLIC; Start 02/14/19 at 20:00 Senna (Senokot) 2 tab BID NGT Last administered on 02/22/19 20:55; Admin Dose 2 TAB; Start 02/15/19 at 21:00 Polyethylene Glycol (Miralax) 17 gm DAILY NGT Last administered on 02/18/19 08:45; Admin Dose 17 GM; Start 02/16/19 at 09:00 Docusate Sodium (Colace Liquid Cup) 200 mg BID NGT Last administered on 7/18/19at 20:34; Admin Dose 200 MG; Start 02/17/19 at 09:00 Bisacodyl (Dulcolax Supp) 5 mg DAILY PRN [place] CONSTIPATION; Start 02/17/19 at 10:00 Vancomycin HCl (Vanco Iv Per Pharmacy) VANCOMYCIN PER PHARMACY PER PROTOCOL XX ; Start 02/17/19 at 09:30 Insulin Glargine (Lantus) 36 units BID SC Last administered on 02/22/19at 20:46; Admin Dose 36 UNITS; Start 02/19/19 at 21:00 Albuterol/ Ipratropium (Duoneb) 3 ml Q2H RESP THERAPY PRN HHN SHORTNESS OF BREATH; Start 02/19/19 at 19:00 Lorazepam (Ativan) 0.5 mg Q12H PRN IV ANXIETY; Start 02/19/19 at 19:30 Famotidine (Pepcid Iv) 20 mg DAILY IV Last administered on 02/22/19at 12:02; Admin Dose 20 MG; Start 02/20/19 at 09:00 Propofol 100 ml @ 2.748 mls/ hr Q12H IV Last administered on 02/23/19at 03:35; Admin Dose 10.992 MLS/HR; Start 02/19/19 at 19:30 Midazolam HCl 50 ml @ 1 mls/hr TITRATE IV ; Start 02/19/19 at 21:00 Nystatin (Nystatin Oint) 1 applic BID TOP Last administered on 02/22/19at 20:35; Admin Dose 1 APPLIC; Start 02/21/19 at 09:00 Piperacillin Sod/ Tazobactam Sod 3.375 gm/Dextrose 100 ml @ 200 mls/hr Q6 IVPB Last administered on 02/23/19at 05:19; Admin Dose 200 MLS/HR; Start 02/21/19 at 12:00 Vancomycin HCl 1.25 gm/Dextrose 250 ml @ 83.333 mls/ hr Q24H IVPB Last administered on 02/22/19at 15:36; Admin Dose 83.333 MLS/HR; Start 02/21/19 at 16:00 Miscellaneous Information (* Miscellaneous Pharmacy Order) ANTIBIOTICS IN D5W FOR NOW ... DAILY XX ; Start 02/22/19 at 09:00 Miscellaneous Information (*Rx Drug Level Order Reminder*) VANCO TR AT 15 00 1500 ONCE XX ; Start 02/23/19 at 15:00; Stop 02/23/19 at 15:01 Carvedilol (Coreg) 6.25 mg BID PO Last administered on 02/22/19at 20:35; Admin Dose 6.25 MG; Start 02/22/19 at 09:00 Lisinopril (Zestril) 5 mg DAILY NGT Last administered on 02/22/19at 08:33; Admin Dose 5 MG; Start 02/22/19 at 09:00 Assessment/Plan Hospital Course (Demo Recall) Acute hypoxemic respiratory failure status post intubation now ventilatory dependent Congestive heart failure: Acute on chronic secondary systolic heart failure Sepsis Coronary artery disease with history of HI History of ischemic cardiomyopathy ejection fraction of 35% History of multiple PCI Severe peripheral vascular disease status post left leg amputation as well as right leg severe PAD Hypertension diabetes dyslipidemia Hyponatremia Acute kidney injury; improved now Recommendations: Vent support respiratory care will be continued managed as per pulmonary. Continue with aspirin and Plavix diabetic control as per internal medicine We will cont carvedilol and inc as needed/tolerated Antibiotic management as per internal medicine ID recommendations DVT prophylaxis GI prophylaxis as per internal medicine Continue with ICU care Diuretics was on hold due to hyponatremia. We give a dose of lasix now and will adjusted daily as needed cont lisinopril dec free water to q8 hours to be adjusted by hospitalist tomorrow randa brenner Thank you for his referral. We will continue to follow along with you YOGI NICOLAS MD [facility] YOGI NICOLAS MD Feb 23, 2019 08:06
[2019-02-23] MEDS: FAMOTIDINE 20 MG INJ IV SCH (08:23)
[2019-02-23] MEDS: LISINOPRIL 5 MG TAB NGT SCH (08:23)
[2019-02-23] MEDS: CLOPIDOGREL 75 MG TAB NGT SCH (08:24)
[2019-02-23] MEDS: POVIDONE IODINE 10% 28.4 GM OINT TOP SCH (08:24)
[2019-02-23] MEDS: ASPIRIN 81 MG TAB PO SCH (08:24)
[2019-02-23] MEDS: NYSTATIN 15 GM OINT TOP SCH ×2 (08:24→20:43)
[2019-02-23] MEDS: DAKINS 0.0125%(1/40) 473 ML SOLUTION TP SCH (08:24)
[2019-02-23] MEDS: BALSAM PERU/CASTOR OIL 60 GM TUBE TOP SCH ×2 (08:24→20:43)
[2019-02-23] MEDS: POLYETHYLENE GLYCOL 17 GM PACKET NGT SCH (08:25)
[2019-02-23] MEDS: DOCUSATE SODIUM 10 MG/ML (10ML CUP) NGT SCH ×2 (08:25→20:41)
[2019-02-23] MEDS: SENNA TAB NGT SCH ×2 (08:25→20:42)
[2019-02-23] MEDS: INSULIN GLARGINE [LANTus] (100 UNITS/ML) SYG SC SCH ×2 (08:42→20:48)
[2019-02-23] MEDS: [UNRECOGNIZED DRUG - REMARK] XX SCH (09:00)
[2019-02-23] MEDS ORDERED: FUROSEMIDE 20 MG INJ IV ONE (09:00)
--- NOTE | 2019-02-23 09:49 | PN ---
Date/Time of Note Date/Time of Note DATE: 02/23/19 TIME: 09:44 Assessment/Plan VTE Prophylaxis Risk score (from Nsg)>0 risk: 13 SCD applied (from Nsg): Yes Pharmacological prophylaxis: other Lines/Catheters IV Catheter Type (from Nrsg): PICC Line Central line still needed: Yes Urinary Cath still in place: Yes Reason Cath still needed: urinary retention Assessment/Plan Hospital Course S: Patient still intubated as not able to Pap CPAP trial yesterday. No fevers overnight. O: VS- see below PE: Gen: Morbidly obese woman lying in bed, intubated HEENT: Opens eyes occasionally Neck: Supple, no lymphadenopathy. Card: Regular rate and rhythm, no murmurs. Pulm: Slightly distant breath sounds bilaterally, no crackles Abd: Soft, nontender, nondistended. Hypoactive bowel sounds. 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 R leg with well healed bypass scar below the knee. Skin: R lower leg erythema has resolved. Right great toe medial ulcer, clean based, no drainage, no surrounding erythema. 2D echo February 19, 2019: Conclusions: Normal left ventricular cavity size. Mild concentric left ventricular hypertrophy. Moderate left ventricular systolic dysfunction. Ejection fraction is visually estimated at 35 %. Tissue Doppler/Mitral Doppler indices are consistent with impaired relaxation (Stage I diastolic dysfunction). Multiple segmental wall motion abnormalities. Mitral valve leaflets appear mildly thickened. Mild mitral annular calcification. Trace mitral regurgitation. Normal appearance and function of the tricuspid valve with trace physiologic regurgitation. Normal right ventricular systolic pressure. suboptimal study. Assessment/Plan: 73 yo morbidly obese woman history of peripheral vascular disease, diabetes type II, CHF, likely COPD presents with acute respiratory failure due to CHF exacerbation. #Sepsis-slowly improving, wound culture positive for MRSA, Klebsiella, enteroco ccus, yeast. Of note patient developed fever to 102 on 02/17, but no fevers in the last 72 hours. Wound culture positive for polymicrobial growth. -For now continue empiric vanco and zosyn, follow final results of blood and urine cultures -Continue wound care as needed for the right toe ulcer -Consider ID consult if symptoms worsen #Acute respiratory failure-again had to be reintubated 4 days ago. CTPA negative for PE - Likely CHF exacerbation. Echocardiogram performed 3 days ago, shows ejection fraction 35% -Monitor for now, follow pulmonary recommendations regarding ventilator settings -Follow-up results of the CPAP trial, and cardiology recommendations #Peripheral vascular disease - Cont aspirin, plavix, statin #Diabetic/vascular right foot ulcer- Patient also has outpatient vascular followup- Patient has failed R sided revascularization in the past; per Vascular Dr Naidu repeat attempt at revascularization would be unwise. Wound swab was done which is positive for bacterial growth polymicrobial - Continue supportive treatment with local wound care and antibiotics for n ow, no debridement planned. #VICTOR M- May have been due to unstable hemodynamics on admission; or contrast load from CTPA- Now resolving, creatinine down to 1.2 today. -Monitor BUN/creatinine levels, continue free water per wine consultant teams #Diabetes type II, insulin dependent. A1c was 9.7, sugars are stable -Continue Lantus at current dose, aspart with meals, sliding scale, monitor sugars #CHF-again echo results noted -Monitor, continue low-dose beta-nabeel per cardiology recommendations -Follow-up further cardiology recommendations # hypernatremia: Resolved today -Continue free water at less frequency today, follow-up basic metabolic panel in the a.m. #History of DVT- LE duplex negative for DVT. 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 GI: famotidine DVT: None Critical care time spent in patient care today equals 40 minutes Result Diagram: 02/23/19 0505 02/23/19 0500 Results 24hrs Laboratory Tests Test 02/22/19 12:38 02/22/19 13:15 02/22/19 16:40 02/22/19 20:34 Bedside Glucose 102 94 107 Urine Color YELLOW Urine Clarity CLEAR Urine pH 8.0 Urine Specific 1.015 [place] Urine Ketones NEGATIVE Urine Nitrite NEGATIVE Urine Bilirubin NEGATIVE Urine Urobilinogen NEGATIVE Urine Leukocyte 1+ H Esterase Urine Microscopic > 182 H RBC Urine Microscopic 32 H WBC Urine Yeast FEW A (Budding) Urine Hemoglobin 2+ H Urine Glucose NEGATIVE Urine Total Protein 1+ H Test 02/23/19 00:28 02/23/19 04:28 02/23/19 05:00 02/23/19 05:05 Bedside Glucose 129 102 Sodium Level 141 Potassium Level 4.2 Chloride Level 108 Carbon Dioxide Level 26 Anion Gap 7 Blood Urea Nitrogen 39 H Creatinine 1.21 H Est Glomerular Filtrat Rate mL/min Glucose Level 103 Calcium Level 8.5 White Blood Count 9.2 # Red Blood Count 3.86 L Hemoglobin 11.3 L Hematocrit 37.0 Mean Corpuscular 95.9 Volume Mean Corpuscular 29.3 Hemoglobin Mean Corpuscular 30.5 L Hemoglobin Concent Red Cell 13.0 Distribution Width Platelet Count 421 H Mean Platelet Volume 10.9 H Immature 0.500 H Granulocytes % Neutrophils % 70.8 Lymphocytes % 12.6 L Monocytes % 7.3 Eosinophils % 7.8 H Basophils % 1.0 Nucleated Red Blood 0.0 Cells % Immature 0.050 H Granulocytes # Neutrophils # 6.5 Lymphocytes # 1.2 Monocytes # 0.7 Eosinophils # 0.7 H Basophils # 0.1 Nucleated Red Blood 0.0 Cells # Magnesium Level 2.5 B-Type Natriuretic 2250 H Peptide Test 02/23/19 08:21 Bedside Glucose 139 Exam/Review of Systems Exam Vitals Vital Signs Date Temp Pulse Resp B/P (MAP) Pulse Ox O2 O2 Flow FiO2 Time Delivery Rate 02/23/19 65 18 160/68 100 08:30 (98) 02/23/19 30 08:00 02/23/19 98.9 Mechanical 08:00 Ventilator 02/19/19 3.0 17:00 Intake and Output 02/22/19 02/22/19 02/23/19 1515:00 23:00 07:00 IntakeIntake Total 631.220 ml 1202.976 ml 1102.440 ml OutputOutput Total 260 ml 535 ml 615 ml BalanceBalance 371.220 ml 667.976 ml 487.440 ml Results Results 24hrs Laboratory Tests Test 02/22/19 12:38 02/22/19 13:15 02/22/19 16:40 02/22/19 20:34 Bedside Glucose 102 94 107 Urine Color YELLOW Urine Clarity CLEAR Urine pH 8.0 Urine Specific 1.015 [place] Urine Ketones NEGATIVE Urine Nitrite NEGATIVE Urine Bilirubin NEGATIVE Urine Urobilinogen NEGATIVE Urine Leukocyte 1+ H Esterase Urine Microscopic > 182 H RBC Urine Microscopic 32 H WBC Urine Yeast FEW A (Budding) Urine Hemoglobin 2+ H Urine Glucose NEGATIVE Urine Total Protein 1+ H Test 02/23/19 00:28 02/23/19 04:28 02/23/19 05:00 02/23/19 05:05 Bedside Glucose 129 102 Sodium Level 141 Potassium Level 4.2 Chloride Level 108 Carbon Dioxide Level 26 Anion Gap 7 Blood Urea Nitrogen 39 H Creatinine 1.21 H Est Glomerular Filtrat Rate mL/min Glucose Level 103 Calcium Level 8.5 White Blood Count 9.2 # Red Blood Count 3.86 L Hemoglobin 11.3 L Hematocrit 37.0 Mean Corpuscular 95.9 Volume Mean Corpuscular 29.3 Hemoglobin Mean Corpuscular 30.5 L Hemoglobin Concent Red Cell 13.0 Distribution Width Platelet Count 421 H Mean Platelet Volume 10.9 H Immature 0.500 H Granulocytes % Neutrophils % 70.8 Lymphocytes % 12.6 L Monocytes % 7.3 Eosinophils % 7.8 H Basophils % 1.0 Nucleated Red Blood 0.0 Cells % Immature 0.050 H Granulocytes # Neutrophils # 6.5 Lymphocytes # 1.2 Monocytes # 0.7 Eosinophils # 0.7 H Basophils # 0.1 Nucleated Red Blood 0.0 Cells # Magnesium Level 2.5 B-Type Natriuretic 2250 H Peptide Test 02/23/19 08:21 Bedside Glucose 139 Medications Medication Current Medications Ondansetron HCl (Zofran Inj) 4 mg Q6H PRN IV NAUSEA AND/OR VOMITING; Start 02/12/19 at 07:30 Ipratropium [place] (Atrovent Hfa) 2 puff Q2H RESP THERAPY PRN INH SHORTNESS OF BREATH; Start 02/12/19 at 07:30 Acetaminophen (Tylenol Liquid) 650 mg Q6H PRN PO PAIN LEVEL 1-3 OR FEVER Last administered on 02/17/19at 20:02; Admin Dose 650 MG; Start 02/12/19 at 07:30 Acetaminophen (Tylenol Supp) 650 mg Q4H PRN [place] PAIN LEVEL 1-3 OR FEVER; Start 02/12/19 at 07:30 Aspirin (Aspirin) 81 mg DAILY PO Last administered on 02/23/19at 08:24; Admin Dose 81 MG; Start 02/12/19 at 09:00 Clopidogrel Bisulfate (plaVIX) 75 mg DAILY NGT Last administered on 02/23/19at 08:24; Admin Dose 75 MG; Start 02/12/19 at 09:00 Atorvastatin Calcium (Lipitor) 80 mg QHS NGT Last administered on 02/22/19at 20:35; Admin Dose 80 MG; Start 02/12/19 at 21:00 Miscellaneous Information 1 ea NOTE XX ; Start 02/12/19 at 09:30 Glucose (Glutose) 15 gm Q15M PRN PO DECREASED GLUCOSE; Start 02/12/19 at 09:30 Glucose (Glutose) 22.5 gm Q15M PRN PO DECREASED GLUCOSE; Start 02/12/19 at 09:30 Dextrose (D50w Syringe) 25 ml Q15M PRN IV DECREASED GLUCOSE; Start 02/12/19 at 09:30 Dextrose (D50w Syringe) 50 ml Q15M PRN IV DECREASED GLUCOSE; Start 02/12/19 at 09:30 Glucagon (Glucagen) 1 mg Q15M PRN IM DECREASED GLUCOSE; Start 02/12/19 at 09:30 Glucose (Glutose) 15 gm Q15M PRN BUCCAL DECREASED GLUCOSE; Start 02/12/19 at 09:30 Insulin Aspart (Novolog Insulin Pen) NOVOLOG *MODERATE* ALGORI... Q4 SC Last administered on 02/22/19at 04:20; Admin Dose 2 UNIT; Start 02/12/19 at 23:07 Sodium Hypochlorite (Dakins Diluted ()) 1 applic DAILY TP Last administered on 02/23/19at 08:24; Admin Dose 1 APPLIC; Start 02/15/19 at 09:00 Povidone Iodine (Povidone-Iodine) 1 applic DAILY TOP Last administered on 02/23/19at 08:24; Admin Dose 1 APPLIC; Start 02/14/19 at 20:00 Senna (Senokot) 2 tab BID NGT Last administered on 02/22/19at 20:55; Admin Dose 2 TAB; Start 02/15/19 at 21:00 Polyethylene Glycol (Miralax) 17 gm DAILY NGT Last administered on 02/18/19at 08:45; Admin Dose 17 GM; Start 02/16/19 at 09:00 Docusate Sodium (Colace Liquid Cup) 200 mg BID NGT Last administered on 02/22/19at 20:34; Admin Dose 200 MG; Start 02/17/19 at 09:00 Bisacodyl (Dulcolax Supp) 5 mg DAILY PRN [place] CONSTIPATION; Start 02/17/19 at 10:00 Vancomycin HCl (Vanco Iv Per Pharmacy) VANCOMYCIN PER PHARMACY PER PROTOCOL XX ; Start 02/17/19 at 09:30 Insulin Glargine (Lantus) 36 units BID SC Last administered on 02/23/19at 08:42; Admin Dose 36 UNITS; Start 02/19/19 at 21:00 Albuterol/ Ipratropium (Duoneb) 3 ml Q2H RESP THERAPY PRN HHN SHORTNESS OF BREATH; Start 02/19/19 at 19:00 Lorazepam (Ativan) 0.5 mg Q12H PRN IV ANXIETY; Start 02/19/19 at 19:30 Famotidine (Pepcid Iv) 20 mg DAILY IV Last administered on 02/23/19at 08:23; Admin Dose 20 MG; Start 02/20/19 at 09:00 Propofol 100 ml @ 2.748 mls/ hr Q12H IV Last administered on 02/23/19at 03:35; Admin Dose 10.992 MLS/HR; Start 02/19/19 at 19:30 Midazolam HCl 50 ml @ 1 mls/hr TITRATE IV ; Start 02/19/19 at 21:00 Nystatin (Nystatin Oint) 1 applic BID TOP Last administered on 02/23/19at 08:24; Admin Dose 1 APPLIC; Start 02/21/19 at 09:00 Piperacillin Sod/ Tazobactam Sod 3.375 gm/Dextrose 100 ml @ 200 mls/hr Q6 IVPB Last administered on 02/23/19at 05:19; Admin Dose 200 MLS/HR; Start 02/21/19 at 12:00 Vancomycin HCl 1.25 gm/Dextrose 250 ml @ 83.333 mls/ hr Q24H IVPB Last administered on 02/22/19at 15:36; Admin Dose 83.333 MLS/HR; Start 02/21/19 at 16:00 Miscellaneous Information (* Miscellaneous Pharmacy Order) ANTIBIOTICS IN D5W FOR NOW ... DAILY XX ; Start 02/22/19 at 09:00 Miscellaneous Information (*Rx Drug Level Order Reminder*) VANCO TR AT 1500 1500 ONCE XX ; Start 02/23/19 at 15:00; Stop 02/23/19 at 15:01 Carvedilol (Coreg) 6.25 mg BID PO Last administered on 02/23/19at 08:23; Admin Dose 6.25 MG; Start 02/22/19 at 09:00 Lisinopril (Zestril) 5 mg DAILY NGT Last administered on 02/23/19at 08:23; Admin Dose 5 MG; Start 02/22/19 at 09:00 PATSY JONES Feb 23, 2019 09:49
[2019-02-23] MEDS: DIPHENHYDRAMINE 25 MG CAP PO PRN (10:48)
--- NOTE | 2019-02-23 11:57 | CONS ---
Consult Date/Type/Reason Admit Date/Time Feb 12, 2019 at 04:44 Initial Consult Date 02/20/19 Type of Consult Pulmonary Requesting Provider: PATSY JONES Date/Time of Note DATE: 02/23/19 TIME: 11:55 Subjective Patient failed CPAP trial yesterday this morning is more alert comfortable following simple commands no respiratory distress Objective Vital Signs Date Temp Pulse Resp B/P (MAP) Pulse Ox O2 O2 Flow FiO2 Time Delivery Rate 02/23/19 70 28 161/64 97 Mechanical 11:00 (96) Ventilator 02/23/19 30 08:00 02/23/19 98.9 08:00 02/19/19 3.0 17:00 Intake and Output 02/22/19 02/22/19 02/23/19 1515:00 23:00 07:00 IntakeIntake Total 631.220 ml 1202.976 ml 1102.440 ml OutputOutput Total 260 ml 535 ml 615 ml BalanceBalance 371.220 ml 667.976 ml 487.440 ml Exam GENERAL: Elderly appearing lady no acute distress VITAL SIGNS: per chart NECK: Supple. No JVD or lymphadenopathy. CARDIAC EXAM: S1, S2. No added sounds or murmurs. CHEST: Diminished air entry bilaterally ABDOMEN: Soft, nontender. No guarding or rebound. EXTREMITIES: No cyanosis, clubbing edema +2 NEUROLOGIC: Generalized weakness. No focal deficits. Vent Setting Ventilator Support Mode: CPAP Fraction of Inspired Oxygen pe: 30 Positive End Expiratory Pressu: 5.0 Results/Medications Result Diagram: 02/23/19 0505 02/23/19 0500 Results 24 hrs Laboratory Tests Test 02/22/19 12:38 02/22/19 13:15 02/22/19 16:40 02/22/19 20:34 Bedside Glucose 102 94 107 Urine Color YELLOW Urine Clarity CLEAR Urine pH 8.0 Urine Specific 1.015 [place] Urine Ketones NEGATIVE Urine Nitrite NEGATIVE Urine Bilirubin NEGATIVE Urine Urobilinogen NEGATIVE Urine Leukocyte 1+ H Esterase Urine Microscopic > 182 H RBC Urine Microscopic 32 H WBC Urine Yeast FEW A (Budding) Urine Hemoglobin 2+ H Urine Glucose NEGATIVE Urine Total Protein 1+ H Test 02/23/19 00:28 02/23/19 04:28 02/23/19 05:00 02/23/19 05:05 Bedside Glucose 129 102 Sodium Level 141 Potassium Level 4.2 Chloride Level 108 Carbon Dioxide Level 26 Anion Gap 7 Blood Urea Nitrogen 39 H Creatinine 1.21 H Est Glomerular Filtrat Rate mL/min Glucose Level 103 Calcium Level 8.5 White Blood Count 9.2 # Red Blood Count 3.86 L Hemoglobin 11.3 L Hematocrit 37.0 Mean Corpuscular 95.9 Volume Mean Corpuscular 29.3 Hemoglobin Mean Corpuscular 30.5 L Hemoglobin Concent Red Cell 13.0 Distribution Width Platelet Count 421 H Mean Platelet Volume 10.9 H Immature 0.500 H Granulocytes % Neutrophils % 70.8 Lymphocytes % 12.6 L Monocytes % 7.3 Eosinophils % 7.8 H Basophils % 1.0 Nucleated Red Blood 0.0 Cells % Immature 0.050 H Granulocytes # Neutrophils # 6.5 Lymphocytes # 1.2 Monocytes # 0.7 Eosinophils # 0.7 H Basophils # 0.1 Nucleated Red Blood 0.0 Cells # Magnesium Level 2.5 B-Type Natriuretic 2250 H Peptide Test 02/23/19 08:21 Bedside Glucose 139 Medications Current Medications Ondansetron HCl (Zofran Inj) 4 mg Q6H PRN IV NAUSEA AND/OR VOMITING; Start 02/12/19 at 07:30 Ipratropium [place] (Atrovent Hfa) 2 puff Q2H RESP THERAPY PRN INH SHORTNESS OF BREATH; Start 02/12/19 at 07:30 Acetaminophen (Tylenol Liquid) 650 mg Q6H PRN PO PAIN LEVEL 1-3 OR FEVER Last administered on 02/17/19at 20:02; Admin Dose 650 MG; Start 02/12/19 at 07:30 Acetaminophen (Tylenol Supp) 650 mg Q4H PRN IN PAIN LEVEL 1-3 OR FEVER; Start 02/12/19 at 07:30 Aspirin (Aspirin) 81 mg DAILY PO Last administered on 02/23/19at 08:24; Admin Dose 81 MG; Start 02/12/19 at 09:00 Clopidogrel Bisulfate (plaVIX) 75 mg DAILY NGT Last administered on 02/23/19at 08:24; Admin Dose 75 MG; Start 02/12/19 at 09:00 Atorvastatin Calcium (Lipitor) 80 mg QHS NGT Last administered on 02/22/19at 20:35; Admin Dose 80 MG; Start 02/12/19 at 21:00 Miscellaneous Information 1 ea NOTE XX ; Start 02/12/19 at 09:30 Glucose (Glutose) 15 gm Q15M PRN PO DECREASED GLUCOSE; Start 02/12/19 at 09:30 Glucose (Glutose) 22.5 gm Q15M PRN PO DECREASED GLUCOSE; Start 02/12/19 at 09:30 Dextrose (D50w Syringe) 25 ml Q15M PRN IV DECREASED GLUCOSE; Start 02/12/19 at 09:30 Dextrose (D50w Syringe) 50 ml Q15M PRN IV DECREASED GLUCOSE; Start 02/12/19 at 09:30 Glucagon (Glucagen) 1 mg Q15M PRN IM DECREASED GLUCOSE; Start 02/12/19 at 09:30 Glucose (Glutose) 15 gm Q15M PRN BUCCAL DECREASED GLUCOSE; Start 02/12/19 at 09:30 Insulin Aspart (Novolog Insulin Pen) NOVOLOG *MODERATE* ALGORI... Q4 SC Last administered on 02/22/19at 04:20; Admin Dose 2 UNIT; Start 02/12/19 at 23:07 Sodium Hypochlorite (Dakins Diluted (40)) 1 applic DAILY TP Last administered on 02/23/19 08:24; Admin Dose 1 APPLIC; Start 02/15/19 at 09:00 Povidone Iodine (Povidone-Iodine) 1 applic DAILY TOP Last administered on 02/23/19 08:24; Admin Dose 1 APPLIC; Start 02/14/19 at 20:00 Senna (Senokot) 2 tab BID NGT Last administered on 02/22/19at 20:55; Admin Dose 2 TAB; Start 02/15/19 at 21:00 Polyethylene Glycol (Miralax) 17 gm DAILY NGT Last administered on 02/18/19at 08:45; Admin Dose 17 GM; Start 02/16/19 at 09:00 Docusate Sodium (Colace Liquid Cup) 200 mg BID NGT Last administered on 02/22/19at 20:34; Admin Dose 200 MG; Start 02/17/19 at 09:00 Bisacodyl (Dulcolax Supp) 5 mg DAILY PRN IN CONSTIPATION; Start 02/17/19 at 10:00 Vancomycin HCl (Vanco Iv Per Pharmacy) VANCOMYCIN PER PHARMACY PER PROTOCOL XX ; Start 02/17/19 at 09:30 Insulin Glargine (Lantus) 36 units BID SC Last administered on 02/23/19 08:42; Admin Dose 36 UNITS; Start 02/19/19 at 21:00 Albuterol/ Ipratropium (Duoneb) 3 ml Q2H RESP THERAPY PRN HHN SHORTNESS OF BREATH; Start 02/19/19 at 19:00 Lorazepam (Ativan) 0.5 mg Q12H PRN IV ANXIETY; Start 02/19/19 at 19:30 Famotidine (Pepcid Iv) 20 mg DAILY IV Last administered on 02/23/19 08:23; Admin Dose 20 MG; Start 02/20/19 at 09:00 Propofol 100 ml @ 2.748 mls/ hr Q12H IV Last administered on 02/23/19 03:35; Admin Dose 10.992 MLS/HR; Start 02/19/19 at 19:30 Midazolam HCl 50 ml @ 1 mls/hr TITRATE IV ; Start 02/19/19 at 21:00 Nystatin (Nystatin Oint) 1 applic BID TOP Last administered on 02/23/19 08:24; Admin Dose 1 APPLIC; Start 02/21/19 at 09:00 Piperacillin Sod/ Tazobactam Sod 3.375 gm/Dextrose 100 ml @ 200 mls/hr Q6 IVPB Last administered on 02/23/19 11:01; Admin Dose 200 MLS/HR; Start 02/21/19 at 12:00 Vancomycin HCl 1.25 gm/Dextrose 250 ml @ 83.333 mls/ hr Q24H IVPB Last administered on 02/22/19at 15:36; Admin Dose 83.333 MLS/HR; Start 02/21/19 at 16:00 Miscellaneous Information (* Miscellaneous Pharmacy Order) ANTIBIOTICS IN D5W FOR NOW ... DAILY XX ; Start 02/22/19 at 09:00 Miscellaneous Information (*Rx Drug Level Order Reminder*) VANCO TR AT 1500 1500 ONCE XX ; Start 02/23/19 at 15:00; Stop 02/23/19 at 15:01 Carvedilol (Coreg) 6.25 mg BID PO Last administered on 02/23/19 08:23; Admin Dose 6.25 MG; Start 02/22/19 at 09:00 Lisinopril (Zestril) 5 mg DAILY NGT Last administered on 02/23/19at 08:23; Admin Dose 5 MG; Start 02/22/19 at 09:00 Diphenhydramine HCl (Benadryl) 25 mg Q6H PRN PO ITCHING Last administered on 02/23/19at 10:48; Admin Dose 25 MG; Start 02/23/19 at 11:00 Assessment/Plan Hospital Course (Demo Recall) Assessment 1. Acute hypoxemic respiratory failure 2. Likely acute tracheobronchitis with congestive cardiac failure 3. Peripheral vascular disease 4. History of diabetes mellitus 5. History of coronary artery disease status post coronary intervention 6. Encephalopathy toxic metabolic Plan 1. Continue ventilation CPAP trial this morning hopefully safely extubate 2. Post extubation speech therapy evaluation with aspiration precautions 3. Continue diuretics per cardiology 4. DVT GI prophylaxis Critical care time 40 minutes Patient may need jail facility given multiple comorbidities KAYLAH OMALLEY MD, [facility] Feb 23, 2019 11:57
[2019-02-23] MEDS: DEXTROSE 50% 50 ML SYRINGE IV PRN (17:28)
[2019-02-23] MEDS: ATORVASTATIN 80 MG TAB NGT SCH (20:41)
[2019-02-24] VITALS (46 sets, daily range): BP systolic 104–190; BP diastolic 33–138; PULSE 57–85; RESP 12–32
[2019-02-24] MEDS ORDERED: PIPER-TAZO 2.25 GM/NS 50 ML IVPB SCH
[2019-02-24] MEDS: INSULIN ASPART [NOVOLOG] 3 ML PEN SC SCH ×6 (01:00→21:00)
[2019-02-24] MEDS: PIPERACILLIN/TAZO 3.375 GM in DEXTROSE 5% 100 ML IVPB SCH ×5 (01:09→23:29)
[2019-02-24] MEDS: PROPOFOL 100 ML IV SCH (07:43)
[2019-02-24] MEDS ORDERED: POTASSIUM CHLORIDE (SR) 20 MEQ TAB PO STA (08:47)
[2019-02-24] MEDS: DOCUSATE SODIUM 10 MG/ML (10ML CUP) NGT SCH ×2 (08:50→21:07)
[2019-02-24] MEDS: SENNA TAB NGT SCH ×2 (08:50→21:07)
[2019-02-24] MEDS: POLYETHYLENE GLYCOL 17 GM PACKET NGT SCH (08:50)
--- NOTE | 2019-02-24 08:53 | PN ---
Date/Time of Note Date/Time of Note DATE: 02/24/19 TIME: 08:49 Assessment/Plan VTE Prophylaxis Risk score (from Nsg)>0 risk: 11 SCD applied (from Nsg): Yes Pharmacological prophylaxis: other Lines/Catheters IV Catheter Type (from Nrsg): Peripheral IV Urinary Cath still in place: Yes Reason Cath still needed: urinary retention Assessment/Plan Hospital Course S: Patient still intubated as again not able to pass CPAP trial yesterday. Tolerating tube feeds. O: VS- see below PE: Gen: Morbidly obese woman lying in bed, intubated HEENT: Opens eyes occasionally Neck: Supple, no lymphadenopathy. Card: Regular rate and rhythm, no murmurs. Pulm: Slightly distant breath sounds bilaterally, no crackles Abd: Soft, nontender, nondistended. Hypoactive bowel sounds. 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 R leg with well healed bypass scar below the knee. Skin: R lower leg erythema has resolved. Right great toe medial ulcer, clean based, no drainage, no surrounding erythema. 2D echo February 19, 2019: Conclusions: Normal left ventricular cavity size. Mild concentric left ventricular hypertrophy. Moderate left ventricular systolic dysfunction. Ejection fraction is visually estimated at 35 %. Tissue Doppler/Mitral Doppler indices are consistent with impaired relaxation (Stage I diastolic dysfunction). Multiple segmental wall motion abnormalities. Mitral valve leaflets appear mildly thickened. Mild mitral annular calcification. Trace mitral regurgitation. Normal appearance and function of the tricuspid valve with trace physiologic regurgitation. Normal right ventricular systolic pressure. suboptimal study. Assessment/Plan: 73 yo morbidly obese woman history of peripheral vascular disease, diabetes type II, CHF, likely COPD presents with acute respiratory failure due to CHF exacerbation. #Sepsis-slowly improving, wound culture positive for MRSA, Klebsiella, enterococcus, yeast. Of note patient developed fever to 102 on 02/17, but no fevers in the last 96 hours. Wound culture positive for polymicrobial growth. -For now continue empiric vanco and zosyn -Continue wound care as needed for the right toe ulcer #Acute respiratory failure-again had to be reintubated 5 days ago. CTPA negative for PE - Likely CHF exacerbation. Echocardiogram performed 4 days ago, shows ejection fraction 35% -Monitor for now, follow pulmonary recommendations regarding ventilator settings -Follow-up results of the CPAP trial (as likely will undergo again today), and cardiology recommendations #Peripheral vascular disease - Cont aspirin, plavix, statin #Diabetic/vascular right foot ulcer- Patient also has outpatient vascular followup- Patient has failed R sided revascularization in the past; per Vascular Dr Naidu repeat attempt at revascularization would be unwise. Wound swab was done which is positive for bacterial growth polymicrobial - Continue supportive treatment with local wound care and antibiotics for now, no debridement planned. #VICTOR M- May have been due to unstable hemodynamics on admission; or contrast load from CTPA-creatinine slightly more elevated at 1.4 today. Patient does have adequate urine output although slightly low per hour. -Monitor BUN/creatinine levels, continue free water per internet consultant teams #Diabetes type II, insulin dependent. A1c was 9.7, sugars in the low normal ra nge -For now continue Lantus at current dose, aspart with meals, sliding scale, monitor sugars #CHF-again echo results noted -Monitor, continue low-dose beta-nabeel per cardiology recommendations -Follow-up further cardiology recommendations, now back on low-dose IV Lasix. # hypernatremia: Resolved today -Continue free water, follow-up basic metabolic panel in the a.m. #History of DVT- LE duplex negative for DVT. 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 GI: famotidine DVT: None Critical care time spent in patient care today equals 45 minutes Result Diagram: 02/24/190 02/24/19 0440 Results 24hrs Laboratory Tests Test 02/23/19 12:48 02/23/19 15:06 02/23/19 17:26 02/23/19 17:48 Bedside Glucose 88 52 L 117 Vancomycin Level 23.6 *H Trough Test 02/23/19 18:02 02/23/19 20:06 02/24/19 01:00 02/24/19 04:40 Bedside Glucose 106 125 127 White Blood Count 9.1 Red Blood Count 4.03 L Hemoglobin 11.8 L Hematocrit 37.6 Mean Corpuscular 93.3 Volume Mean Corpuscular 29.3 Hemoglobin Mean Corpuscular 31.4 L Hemoglobin Concen t Red Cell 12.7 Distribution Width Platelet Count 438 H Mean Platelet 10.7 H Volume Immature 0.600 H Granulocytes % Neutrophils % 76.1 Lymphocytes % 9.9 L Monocytes % 6.5 Eosinophils % 6.1 Basophils % 0.8 Nucleated Red 0.0 Blood Cells % Immature 0.050 H Granulocytes # Neutrophils # 6.9 Lymphocytes # 0.9 Monocytes # 0.6 Eosinophils # 0.6 H Basophils # 0.1 Nucleated Red 0.0 Blood Cells # Sodium Level 144 Potassium Level 3.4 L Chloride Level 107 Carbon Dioxide 29 Level Anion Gap 8 Blood Urea 31 H Nitrogen Creatinine 1.40 H Est Glomerular Filtrat Rate mL/min Glucose Level 118 Calcium Level 8.5 Magnesium Level 2.4 Total Bilirubin 0.3 Direct Bilirubin 0.00 Indirect 0.3 Bilirubin Aspartate Amino 39 Transf (AST/SGOT) Alanine 88 H Aminotransferase (ALT/SGPT) Alkaline 114 Phosphatase B-Type 2250 H Natriuretic Peptide Total Protein 6.3 Albumin 3.0 L Globulin 3.30 H Albumin/Globulin 0.90 Ratio Test 02/24/19 04:50 02/24/19 07:00 Bedside Glucose 124 Blood Gas Blood arterial Specimen Source Arterial Blood 02/24/2019 8:35:4 Date Drawn 2 AM Arterial Blood pH 7.464 H (Temp corrected) Arterial Blood 36.3 pCO2 (Temp correct) Arterial Blood 91.5 H pO2 (Temp corrected) Arterial Blood 25.5 HCO3 Arterial Blood 1.9 Base Excess Arterial Blood 96.8 Oxygen Saturation Dawson Test ACCEPTAB Arterial Blood Right Radial Gas Puncture Site Arterial 0.2 Blood Carboxyhemo globin Arterial Blood 0.3 Methemoglobin Blood Gas A-a O2 79.8 H Differential Oxyhemoglobin 96.3 Percent Blood Gas 37.0 Temperature Blood Gas 16.0 Respiration Rate Blood Gas Actual 16 Respiration Rate Blood Gas VENT - AC Modality FiO2 30.0 Blood Gas Tidal 500.0 Volume Blood Gas Low 5.0 PEEP Setting Blood Gas Steph GARCIA Notified Whom Blood Gas 02/24/2019 8:45:1 Notified Time 4 AM Exam/Review of Systems Exam Vitals Vital Signs Date Temp Pulse Resp B/P (MAP) Pulse Ox O2 O2 Flow FiO2 Time Delivery Rate 02/24/19 68 16 107/46 98 Mechanical 07:00 (66) Ventilator 02/24/19 30 05:34 02/24/19 97.8 04:00 Intake and Output 02/23/19 02/23/19 02/24/19 1515:00 23:00 07:00 IntakeIntake Total 237.488 ml 885.932 ml 655.92 ml OutputOutput Total 1150 ml 400 ml 380 ml BalanceBalance -912.512 ml 485.932 ml 275.92 ml Results Results 24hrs Laboratory Tests Test 02/23/19 12:48 02/23/19 15:06 02/23/19 17:26 02/23/19 17:48 Bedside Glucose 88 52 L 117 Vancomycin Level 23.6 *H Trough Test 02/23/19 18:02 02/23/19 20:06 02/24/19 01:00 02/24/19 04:40 Bedside Glucose 106 125 127 White Blood Count 9.1 Red Blood Count 4.03 L Hemoglobin 11.8 L Hematocrit 37.6 Mean Corpuscular 93.3 Volume Mean Corpuscular 29.3 Hemoglobin Mean Corpuscular 31.4 L Hemoglobin Concen t Red Cell 12.7 Distribution Width Platelet Count 438 H Mean Platelet 10.7 H Volume Immature 0.600 H Granulocytes % Neutrophils % 76.1 Lymphocytes % 9.9 L Monocytes % 6.5 Eosinophils % 6.1 Basophils % 0.8 Nucleated Red 0.0 Blood Cells % Immature 0.050 H Granulocytes # Neutrophils # 6.9 Lymphocytes # 0.9 Monocytes # 0.6 Eosinophils # 0.6 H Basophils # 0.1 Nucleated Red 0.0 Blood Cells # Sodium Level 144 Potassium Level 3.4 L Chloride Level 107 Carbon Dioxide 29 Level Anion Gap 8 Blood Urea 31 H Nitrogen Creatinine 1.40 H Est Glomerular Filtrat Rate mL/min Glucose Level 118 Calcium Level 8.5 Magnesium Level 2.4 Total Bilirubin 0.3 Direct Bilirubin 0.00 Indirect 0.3 Bilirubin Aspartate Amino 39 Transf (AST/SGOT) Alanine 88 H Aminotransferase (ALT/SGPT) Alkaline 114 Phosphatase B-Type 2250 H Natriuretic Peptide Total Protein 6.3 Albumin 3.0 L Globulin 3.30 H Albumin/Globulin 0.90 Ratio Test 02/24/19 04:50 02/24/19 07:00 Bedside Glucose 124 Blood Gas Blood arterial Specimen Source Arterial Blood 02/24/2019 8:35:4 Date Drawn 2 AM Arterial Blood pH 7.464 H (Temp corrected) Arterial Blood 36.3 pCO2 (Temp correct) Arterial Blood 91.5 H pO2 (Temp corrected) Arterial Blood 25.5 HCO3 Arterial Blood 1.9 Base Excess Arterial Blood 96.8 Oxygen Saturation Dawson Test ACCEPTAB Arterial Blood Right Radial Gas Puncture Site Arterial 0.2 Blood Carboxyhemo globin Arterial Blood 0.3 Methemoglobin Blood Gas A-a O2 79.8 H Differential Oxyhemoglobin 96.3 Percent Blood Gas 37.0 Temperature Blood Gas 16.0 Respiration Rate Blood Gas Actual 16 Respiration Rate Blood Gas VENT - AC Modality FiO2 30.0 Blood Gas Tidal 500.0 Volume Blood Gas Low 5.0 PEEP Setting Blood Gas Steph GARCIA Notified Whom Blood Gas 02/24/2019 8:45:1 Notified Time 4 AM Medications Medication Current Medications Ondansetron HCl (Zofran Inj) 4 mg Q6H PRN IV NAUSEA AND/OR VOMITING; Start 02/12/19 at 07:30 Ipratropium [place] (Atrovent Hfa) 2 puff Q2H RESP THERAPY PRN INH SHORTNESS OF BREATH; Start 02/12/19 at 07:30 Acetaminophen (Tylenol Liquid) 650 mg Q6H PRN PO PAIN LEVEL 1-3 OR FEVER Last administered on 02/17/19at 20:02; Admin Dose 650 MG; Start 02/12/19 at 07:30 Acetaminophen (Tylenol Supp) 650 mg Q4H PRN [place] PAIN LEVEL 1-3 OR FEVER; Start 02/12/19 at 07:30 Aspirin (Aspirin) 81 mg DAILY PO Last administered on 02/23/19at 08:24; Admin Dose 81 MG; Start 02/12/19 at 09:00 Clopidogrel Bisulfate (plaVIX) 75 mg DAILY NGT Last administered on 02/23/19at 08:24; Admin Dose 75 MG; Start 02/12/19 at 09:00 Atorvastatin Calcium (Lipitor) 80 mg QHS NGT Last administered on 02/23/19at 20:41; Admin Dose 80 MG; Start 02/12/19 at 21:00 Miscellaneous Information 1 ea NOTE XX ; Start 02/12/19 at 09:30 Glucose (Glutose) 15 gm Q15M PRN PO DECREASED GLUCOSE; Start 02/12/19 at 09:30 Glucose (Glutose) 22.5 gm Q15M PRN PO DECREASED GLUCOSE; Start 02/12/19 at 09:30 Dextrose (D50w Syringe) 25 ml Q15M PRN IV DECREASED GLUCOSE Last administered on 02/23/19at 17:28; Admin Dose 25 ML; Start 02/12/19 at 09:30 Dextrose (D50w Syringe) 50 ml Q15M PRN IV DECREASED GLUCOSE; Start 02/12/19 at 09:30 Glucagon (Glucagen) 1 mg Q15M PRN IM DECREASED GLUCOSE; Start 02/12/19 at 09:30 Glucose (Glutose) 15 gm Q15M PRN BUCCAL DECREASED GLUCOSE; Start 02/12/19 at 09:30 Insulin Aspart (Novolog Insulin Pen) NOVOLOG *MODERATE* ALGORI... Q4 SC Last administered on 02/22/19at 04:20; Admin Dose 2 UNIT; Start 02/12/19 at 23:07 Sodium Hypochlorite (Dakins Diluted ()) 1 applic DAILY TP Last administered on 02/23/19 08:24; Admin Dose 1 APPLIC; Start 02/15/19 at 09:00 Povidone Iodine (Povidone-Iodine) 1 applic DAILY TOP Last administered on 02/23/19 08:24; Admin Dose 1 APPLIC; Start 02/14/19 at 20:00 Senna (Senokot) 2 tab BID NGT Last administered on 02/23/19at 20:42; Admin Dose 2 TAB; Start 02/15/19 at 21:00 Polyethylene Glycol (Miralax) 17 gm DAILY NGT Last administered on 02/18/19at 08:45; Admin Dose 17 GM; Start 02/16/19 at 09:00 Docusate Sodium (Colace Liquid Cup) 200 mg BID NGT Last administered on 02/23/19at 20:41; Admin Dose 200 MG; Start 02/17/19 at 09:00 Bisacodyl (Dulcolax Supp) 5 mg DAILY PRN [place] CONSTIPATION; Start 02/17/19 at 10:00 Vancomycin HCl (Vanco Iv Per Pharmacy) VANCOMYCIN PER PHARMACY PER PROTOCOL XX ; Start 02/17/19 at 09:30 Insulin Glargine (Lantus) 36 units BID SC Last administered on 02/23/19at 20:48; Admin Dose 36 UNITS; Start 02/19/19 at 21:00 Albuterol/ Ipratropium (Duoneb) 3 ml Q2H RESP THERAPY PRN HHN SHORTNESS OF BREATH; Start 02/19/19 at 19:00 Lorazepam (Ativan) 0.5 mg Q12H PRN IV ANXIETY; Start 02/19/19 at 19:30 Famotidine (Pepcid Iv) 20 mg DAILY IV Last administered on 02/23/19 08:23; Admin Dose 20 MG; Start 02/20/19 at 09:00 Propofol 100 ml @ 2.748 mls/ hr Q12H IV Last administered on 02/24/19 07:43; Admin Dose 8.244 MLS/HR; Start 02/19/19 at 19:30 Midazolam HCl 50 ml @ 1 mls/hr TITRATE IV ; Start 02/19/19 at 21:00 Nystatin (Nystatin Oint) 1 applic BID TOP Last administered on 02/23/19 20:43; Admin Dose 1 APPLIC; Start 02/21/19 at 09:00 Piperacillin Sod/ Tazobactam Sod 3.375 gm/Dextrose 100 ml @ 200 mls/hr Q6 IVPB Last administered on 02/24/19 06:27; Admin Dose 200 MLS/HR; Start 02/21/19 at 12:00 Carvedilol (Coreg) 6.25 mg BID PO Last administered on 02/23/19 08:23; Admin Dose 6.25 MG; Start 02/22/19 at 09:00 Lisinopril (Zestril) 5 mg DAILY NGT Last administered on 02/23/19 08:23; Admin Dose 5 MG; Start 02/22/19 at 09:00 Diphenhydramine HCl (Benadryl) 25 mg Q6H PRN PO ITCHING Last administered on 02/23/19at 10:48; Admin Dose 25 MG; Start 02/23/19 at 11:00 Vancomycin HCl 250 ml @ 125 mls/hr Q36H IVPB ; Start 02/24/19 at 16:00 PATSY JONES Feb 24, 2019 08:53
[2019-02-24] MEDS: ASPIRIN 81 MG TAB PO SCH (08:58)
[2019-02-24] MEDS: FAMOTIDINE 20 MG INJ IV SCH (08:58)
[2019-02-24] MEDS: CLOPIDOGREL 75 MG TAB NGT SCH (08:58)
[2019-02-24] MEDS: NYSTATIN 15 GM OINT TOP SCH ×2 (08:59→21:12)
[2019-02-24] MEDS: DAKINS 0.0125%(1/40) 473 ML SOLUTION TP SCH (08:59)
[2019-02-24] MEDS: BALSAM PERU/CASTOR OIL 60 GM TUBE TOP SCH ×2 (08:59→21:13)
[2019-02-24] MEDS: POVIDONE IODINE 10% 28.4 GM OINT TOP SCH (09:06)
[2019-02-24] MEDS ORDERED: FENTAnyl (DRIP) 1000 mcg/100mL 100 ML IV SCH (09:30)
--- NOTE | 2019-02-24 09:47 | CONS ---
Consult Date/Type/Reason Admit Date/Time Feb 12, 2019 at 04:44 Initial Consult Date 02/20/19 Type of Consult Pulmonary Requesting Provider: PATSY JONES Date/Time of Note DATE: 02/24/19 TIME: 09:46 Subjective Patient failed CPAP trial yesterday had apneic episodes. Appears comfortable this morning on propofol. Chest x-ray demonstrates mild pulmonary edema. Objective Vital Signs Date Temp Pulse Resp B/P (MAP) Pulse Ox O2 O2 Flow FiO2 Time Delivery Rate 02/24/19 68 16 107/46 98 Mechanical 07:00 (66) Ventilator 02/24/19 30 05:34 02/24/19 97.8 04:00 Intake and Output 02/23/19 02/23/19 02/24/19 1515:00 23:00 07:00 IntakeIntake Total 237.488 ml 885.932 ml 655.92 ml OutputOutput Total 1150 ml 400 ml 380 ml BalanceBalance -912.512 ml 485.932 ml 275.92 ml Exam GENERAL: Elderly appearing lady no acute distress VITAL SIGNS: per chart NECK: Supple. No JVD or lymphadenopathy. CARDIAC EXAM: S1, S2. No added sounds or murmurs. CHEST: Diminished air entry bilaterally ABDOMEN: Soft, nontender. No guarding or rebound. EXTREMITIES: No cyanosis, clubbing edema +2 NEUROLOGIC: Generalized weakness. No focal deficits. Vent Setting Ventilator Support Mode: AC Fraction of Inspired Oxygen pe: 30 Positive End Expiratory Pressu: 5.0 Results/Medications Result Diagram: 02/24/19 0440 02/24/19 0440 Results 24 hrs Laboratory Tests Test 02/23/19 12:48 02/23/19 15:06 02/23/19 17:26 02/23/19 17:48 Bedside Glucose 88 52 L 117 Vancomycin Level 23.6 *H Trough Test 02/23/19 18:02 02/23/19 20:06 02/24/19 01:00 02/24/19 04:40 Bedside Glucose 106 125 127 White Blood Count 9.1 Red Blood Count 4.03 L Hemoglobin 11.8 L Hematocrit 37.6 Mean Corpuscular 93.3 Volume Mean Corpuscular 29.3 Hemoglobin Mean Corpuscular 31.4 L Hemoglobin Concen t Red Cell 12.7 Distribution Width Platelet Count 438 H Mean Platelet 10.7 H Volume Immature 0.600 H Granulocytes % Neutrophils % 76.1 Lymphocytes % 9.9 L Monocytes % 6.5 Eosinophils % 6.1 Basophils % 0.8 Nucleated Red 0.0 Blood Cells % Immature 0.050 H Granulocytes # Neutrophils # 6.9 Lymphocytes # 0.9 Monocytes # 0.6 Eosinophils # 0.6 H Basophils # 0.1 Nucleated Red 0.0 Blood Cells # Sodium Level 144 Potassium Level 3.4 L Chloride Level 107 Carbon Dioxide 29 Level Anion Gap 8 Blood Urea 31 H Nitrogen Creatinine 1.40 H Est Glomerular Filtrat Rate mL/min Glucose Level 118 Calcium Level 8.5 Magnesium Level 2.4 Total Bilirubin 0.3 Direct Bilirubin 0.00 Indirect 0.3 Bilirubin Aspartate Amino 39 Transf (AST/SGOT) Alanine 88 H Aminotransferase (ALT/SGPT) Alkaline 114 Phosphatase B-Type 2250 H Natriuretic Peptide Total Protein 6.3 Albumin 3.0 L Globulin 3.30 H Albumin/Globulin 0.90 Ratio Test 02/24/19 04:50 02/24/19 07:00 02/24/19 08:42 Bedside Glucose 124 79 Blood Gas Blood arterial Specimen Source Arterial Blood 02/24/2019 8:35:4 Date Drawn 2 AM Arterial Blood pH 7.464 H (Temp corrected) Arterial Blood 36.3 pCO2 (Temp correct) Arterial Blood 91.5 H pO2 (Temp corrected) Arterial Blood 25.5 HCO3 Arterial Blood 1.9 Base Excess Arterial Blood 96.8 Oxygen Saturation Dawson Test ACCEPTAB Arterial Blood Right Radial Gas Puncture Site Arterial 0.2 Blood Carboxyhemo globin Arterial Blood 0.3 Methemoglobin Blood Gas A-a O2 79.8 H Differential Oxyhemoglobin 96.3 Percent Blood Gas 37.0 Temperature Blood Gas 16.0 Respiration Rate Blood Gas Actual 16 Respiration Rate Blood Gas VENT - AC Modality FiO2 30.0 Blood Gas Tidal 500.0 Volume Blood Gas Low 5.0 PEEP Setting Blood Gas Steph GARCIA Notified Whom Blood Gas 02/24/2019 8:45:1 Notified Time 4 AM Medications Current Medications Ondansetron HCl (Zofran Inj) 4 mg Q6H PRN IV NAUSEA AND/OR VOMITING; Start 02/12/19 at 07:30 Ipratropium [place] (Atrovent Hfa) 2 puff Q2H RESP THERAPY PRN INH SHORTNESS OF BREATH; Start 02/12/19 at 07:30 Acetaminophen (Tylenol Liquid) 650 mg Q6H PRN PO PAIN LEVEL 1-3 OR FEVER Last administered on 02/17/19at 20:02; Admin Dose 650 MG; Start 02/12/19 at 07:30 Acetaminophen (Tylenol Supp) 650 mg Q4H PRN [place] PAIN LEVEL 1-3 OR FEVER; Start 02/12/19 at 07:30 Aspirin (Aspirin) 81 mg DAILY PO Last administered on 02/24/19 08:58; Admin Dose 81 MG; Start 02/12/19 at 09:00 Clopidogrel Bisulfate (plaVIX) 75 mg DAILY NGT Last administered on 02/24/19 08:58; Admin Dose 75 MG; Start 02/12/19 at 09:00 Atorvastatin Calcium (Lipitor) 80 mg QHS NGT Last administered on 02/23/19at 20:41; Admin Dose 80 MG; Start 02/12/19 at 21:00 Miscellaneous Information 1 ea NOTE XX ; Start 02/12/19 at 09:30 Glucose (Glutose) 15 gm Q15M PRN PO DECREASED GLUCOSE; Start 02/12/19 at 09:30 Glucose (Glutose) 22.5 gm Q15M PRN PO DECREASED GLUCOSE; Start 02/12/19 at 09:30 Dextrose (D50w Syringe) 25 ml Q15M PRN IV DECREASED GLUCOSE Last administered on 02/23/19at 17:28; Admin Dose 25 ML; Start 02/12/19 at 09:30 Dextrose (D50w Syringe) 50 ml Q15M PRN IV DECREASED GLUCOSE; Start 02/12/19 at 09:30 Glucagon (Glucagen) 1 mg Q15M PRN IM DECREASED GLUCOSE; Start 02/12/19 at 09:30 Glucose (Glutose) 15 gm Q15M PRN BUCCAL DECREASED GLUCOSE; Start 02/12/19 at 09:30 Insulin Aspart (Novolog Insulin Pen) NOVOLOG *MODERATE* ALGORI... Q4 SC Last administered on 02/22/19at 04:20; Admin Dose 2 UNIT; Start 02/12/19 at 23:07 Sodium Hypochlorite (Dakins Diluted (1/40)) 1 applic DAILY TP Last administered on 02/24/19at 08:59; Admin Dose 1 APPLIC; Start 02/15/19 at 09:00 Povidone Iodine (Povidone-Iodine) 1 applic DAILY TOP Last administered on 02/24/19at 09:06; Admin Dose 1 APPLIC; Start 02/14/19 at 20:00 Senna (Senokot) 2 tab BID NGT Last administered on 02/23/19at 20:42; Admin Dose 2 TAB; Start 02/15/19 at 21:00 Polyethylene Glycol (Miralax) 17 gm DAILY NGT Last administered on 02/18/19at 08:45; Admin Dose 17 GM; Start 02/16/19 at 09:00 Docusate Sodium (Colace Liquid Cup) 200 mg BID NGT Last administered on 02/23/19at 20:41; Admin Dose 200 MG; Start 02/17/19 at 09:00 Bisacodyl (Dulcolax Supp) 5 mg DAILY PRN [place] CONSTIPATION; Start 02/17/19 at 10:00 Vancomycin HCl (Vanco Iv Per Pharmacy) VANCOMYCIN PER PHARMACY PER PROTOCOL XX ; Start 02/17/19 at 09:30 Insulin Glargine (Lantus) 36 units BID SC Last administered on 02/23/19at 20:48; Admin Dose 36 UNITS; Start 02/19/19 at 21:00 Albuterol/ Ipratropium (Duoneb) 3 ml Q2H RESP THERAPY PRN HHN SHORTNESS OF BREATH; Start 02/19/19 at 19:00 Lorazepam (Ativan) 0.5 mg Q12H PRN IV ANXIETY; Start 02/19/19 at 19:30 Famotidine (Pepcid Iv) 20 mg DAILY IV Last administered on 02/24/19at 08:58; Admin Dose 20 MG; Start 02/20/19 at 09:00 Propofol 100 ml @ 2.748 mls/ hr Q12H IV Last administered on 02/24/19at 07:43; Admin Dose 8.244 MLS/HR; Start 02/19/19 at 19:30 Midazolam HCl 50 ml @ 1 mls/hr TITRATE IV ; Start 02/19/19 at 21:00 Nystatin (Nystatin Oint) 1 applic BID TOP Last administered on 02/24/19at 08:59; Admin Dose 1 APPLIC; Start 02/21/19 at 09:00 Piperacillin Sod/ Tazobactam Sod 3.375 gm/Dextrose 100 ml @ 200 mls/hr Q6 IVPB Last administered on 02/24/19at 06:27; Admin Dose 200 MLS/HR; Start 02/21/19 at 12:00 Carvedilol (Coreg) 6.25 mg BID PO Last administered on 02/24/19at 08:58; Admin Dose 6.25 MG; Start 02/22/19 at 09:00 Lisinopril (Zestril) 5 mg DAILY NGT Last administered on 02/23/19at 08:23; Admin Dose 5 MG; Start 02/22/19 at 09:00; Status Hold Diphenhydramine HCl (Benadryl) 25 mg Q6H PRN PO ITCHING Last administered on 02/23/19at 10:48; Admin Dose 25 MG; Start 02/23/19 at 11:00 Vancomycin HCl 250 ml @ 125 mls/hr Q36H IVPB ; Start 02/24/19 at 16:00 Fentanyl 100 ml @ 2.5 mls/hr TITRATE IV ; Start 02/24/19 at 09:30 Assessment/Plan Hospital Course (Demo Recall) Assessment 1. Acute hypoxemic respiratory failure 2. Likely acute tracheobronchitis with congestive cardiac failure 3. Peripheral vascular disease 4. History of diabetes mellitus 5. History of coronary artery disease status post coronary intervention 6. Encephalopathy toxic metabolic Plan 1. Continue ventilation CPAP trial this morning hopefully safely extubate, trial of fentanyl and Precedex DC propofol 2. Post extubation speech therapy evaluation with aspiration precautions 3. Continue diuretics per cardiology 4. DVT GI prophylaxis Critical care time 40 minutes Patient may need halfway facility given multiple comorbidities KAYLAH OMALLEY MD, [facility] Feb 24, 2019 09:47
[2019-02-24] MEDS: INSULIN GLARGINE [LANTus] (100 UNITS/ML) SYG SC SCH ×2 (10:33→21:09)
[2019-02-24] MEDS: DEXMEDETOMIDINE IN DEXTROSE 5% 50 ML IV SCH ×2 (10:35→23:32)
[2019-02-24] MEDS: COLLAGENASE 5 GM (UD JAR) TOP SCH ×2 (10:42→21:40)
[2019-02-24] MEDS: VANCOMYCIN 1 GM 250 ML IVPB SCH (15:21)
[2019-02-24] MEDS: DEXTROSE 50% 50 ML SYRINGE IV PRN (16:53)
[2019-02-24] MEDS: ATORVASTATIN 80 MG TAB NGT SCH (21:07)
[2019-02-25] VITALS (36 sets, daily range): BP systolic 97–183; BP diastolic 38–146; PULSE 58–99; RESP 11–33
[2019-02-25] MEDS: INSULIN ASPART [NOVOLOG] 3 ML PEN SC SCH ×6 (00:38→21:00)
[2019-02-25] MEDS: PIPERACILLIN/TAZO 3.375 GM in DEXTROSE 5% 100 ML IVPB SCH ×3 (05:45→18:03)
[2019-02-25] MEDS: ASPIRIN 81 MG TAB PO SCH (08:36)
[2019-02-25] MEDS: CLOPIDOGREL 75 MG TAB NGT SCH (08:36)
[2019-02-25] MEDS: POVIDONE IODINE 10% 28.4 GM OINT TOP SCH (08:37)
[2019-02-25] MEDS: DAKINS 0.0125%(1/40) 473 ML SOLUTION TP SCH (08:37)
[2019-02-25] MEDS: COLLAGENASE 5 GM (UD JAR) TOP SCH ×2 (08:37→21:00)
[2019-02-25] MEDS: BALSAM PERU/CASTOR OIL 60 GM TUBE TOP SCH ×2 (08:37→21:00)
[2019-02-25] MEDS: DOCUSATE SODIUM 10 MG/ML (10ML CUP) NGT SCH ×2 (08:38→20:55)
[2019-02-25] MEDS: SENNA TAB NGT SCH ×2 (08:38→20:55)
[2019-02-25] MEDS: NYSTATIN 15 GM OINT TOP SCH ×2 (08:38→21:00)
[2019-02-25] MEDS: POLYETHYLENE GLYCOL 17 GM PACKET NGT SCH (08:38)
[2019-02-25] MEDS: DEXMEDETOMIDINE IN DEXTROSE 5% 50 ML IV SCH (08:59)
[2019-02-25] MEDS: FAMOTIDINE 20 MG INJ IV SCH (08:59)
[2019-02-25] MEDS: INSULIN GLARGINE [LANTus] (100 UNITS/ML) SYG SC SCH (09:00)
--- NOTE | 2019-02-25 09:08 | PN ---
Date/Time of Note Date/Time of Note DATE: 02/25/19 TIME: 09:00 Assessment/Plan VTE Prophylaxis Risk score (from Ns)>0 risk: 14 SCD applied (from Nsg): Yes Pharmacological prophylaxis: other Lines/Catheters IV Catheter Type (from Nrsg): PICC Line Central line still needed: Yes Urinary Cath still in place: Yes Reason Cath still needed: urinary retention Assessment/Plan Hospital Course S: Patient still intubated, as did not pass CPAP trial again yesterday, although apparently patient also had hypoglycemic episode at the end of CPAP trial and hence the extubation was held. Sugars have been stable since that time overnight. O: VS- see below PE: Gen: Morbidly obese woman lying in bed, intubated HEENT: Opens eyes occasionally Neck: Supple, no lymphadenopathy. Card: Regular rate and rhythm, no murmurs. Pulm: Slightly distant breath sounds bilaterally, no crackles Abd: Soft, nontender, nondistended. Hypoactive bowel sounds. 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 R leg with well healed bypass scar below the knee. Skin: R lower leg erythema has resolved. Right great toe medial ulcer, clean based, no drainage, no surrounding erythema. 2D echo February 19, 2019: Conclusions: Normal left ventricular cavity size. Mild concentric left ventricular hypertrophy. Moderate left ventricular systolic dysfunction. Ejection fraction is visually estimated at 35 %. Tissue Doppler/Mitral Doppler indices are consistent with impaired relaxation (Stage I diastolic dysfunction). Multiple segmental wall motion abnormalities. Mitral valve leaflets appear mildly thickened. Mild mitral annular calcification. Trace mitral regurgitation. Normal appearance and function of the tricuspid valve with trace physiologic regurgitation. Normal right ventricular systolic pressure. suboptimal study. Assessment/Plan: 73 yo morbidly obese woman history of peripheral vascular disease, diabetes type II, CHF, likely COPD presents with acute respiratory failure due to CHF exacerbation. #Sepsis-slowly improving, wound culture positive for MRSA, Klebsiella, enterococcus, yeast. Of note patient developed fever to 102 on 02/17, but no fevers for the last 5 days. Wound culture positive for polymicrobial growth. -For now continue empiric vanco and zosyn -Continue wound care as needed for the right toe ulcer #Acute respiratory failure-again had to be reintubated 6 days ago. CTPA negative for PE - Likely CHF exacerbation. Echocardiogram performed 5 days ago, shows ejection fraction 35% -Monitor for now, follow pulmonary recommendations regarding ventilator settings -Follow-up results of the CPAP trial (as will undergo again today), and cardiology recommendations #Peripheral vascular disease - Cont aspirin, plavix, statin #Diabetic/vascular right foot ulcer- Patient also has outpatient vascular f ollowup- Patient has failed R sided revascularization in the past; per Vascular Dr Naidu repeat attempt at revascularization would be unwise. Wound swab was done which is positive for bacterial growth polymicrobial - Continue supportive treatment with local wound care and antibiotics for now, no debridement planned. #VICTOR M- May have been due to unstable hemodynamics on admission; or contrast load from CTPA-creatinine slightly more elevated at 1.4 today. Patient does have adequate urine output although slightly low per hour. -Monitor BUN/creatinine levels, continue free water per erp consultant teams #Diabetes type II, insulin dependent. A1c= 9.7, patient did have one episode of hypoglycemia yesterday, given D5 fluids to help counteract that yesterday. -We will hold Lantus this morning, monitor sugars, continue sliding scale insulin #CHF-again echo results noted -Monitor, continue low-dose beta-nabeel per cardiology recommendations -Follow-up further cardiology recommendations, now back on low-dose IV Lasix. # hypernatremia: Resolved -Monitor basic metabolic panel in the a.m. #History of DVT- LE duplex negative for DVT. 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 GI: famotidine DVT: None Critical care time spent in patient care today equals 50 minutes Result Diagram: 02/25/19 0425 02/25/19 0425 Results 24hrs Laboratory Tests Test 02/24/19 12:30 02/24/19 15:30 02/24/19 16:50 02/24/19 16:57 Bedside Glucose 106 44 *L 220 Blood Gas Blood arterial Specimen Source Arterial Blood 02/24/2019 3:45:2 Date Drawn 2 PM Arterial Blood pH 7.403 (Temp corrected) Arterial Blood 40.2 pCO2 (Temp correct) Arterial Blood 97.6 H pO2 (Temp corrected) Arterial Blood 24.5 HCO3 Arterial Blood -0.2 Base Excess Arterial Blood 96.8 Oxygen Saturation Dawson Test ACCEPTAB Arterial Blood Right Brachial Gas Puncture Site Arterial 0.2 Blood Carboxyhemo globin Arterial Blood 0 Methemoglobin Blood Gas A-a O2 69.1 H Differential Oxyhemoglobin 96.6 Percent Blood Gas 37.0 Temperature Blood Gas Actual 32 Respiration Rate Blood Gas VENT - CPAP Modality FiO2 30.0 Blood Gas Low 5.0 PEEP Setting Blood Gas JUDY WILD Notified Whom Blood Gas 02/24/2019 4:05:2 Notified Time 0 PM Test 02/24/19 21:03 02/24/19 23:38 02/25/19 00:31 02/25/19 04:25 Bedside Glucose 120 170 Potassium Level 3.9 3.9 Magnesium Level 2.5 White Blood Count 8.9 Red Blood Count 4.03 L Hemoglobin 11.7 L Hematocrit 37.4 Mean Corpuscular 92.8 Volume Mean Corpuscular 29.0 Hemoglobin Mean Corpuscular 31.3 L Hemoglobin Concen t Red Cell 12.5 Distribution Width Platelet Count 408 Mean Platelet 10.9 H Volume Immature 0.700 H Granulocytes % Neutrophils % 74.2 Lymphocytes % 11.9 L Monocytes % 7.9 Eosinophils % 4.6 Basophils % 0.7 Nucleated Red 0.0 Blood Cells % Immature 0.060 H Granulocytes # Neutrophils # 6.6 Lymphocytes # 1.1 Monocytes # 0.7 Eosinophils # 0.4 Basophils # 0.1 Nucleated Red 0.0 Blood Cells # Sodium Level 142 Chloride Level 109 Carbon Dioxide 26 Level Anion Gap 7 Blood Urea 31 H Nitrogen Creatinine 1.26 H Est Glomerular Filtrat Rate mL/min Glucose Level 166 Calcium Level 8.5 Test 02/25/19 04:38 02/25/19 08:30 Bedside Glucose 145 152 Exam/Review of Systems Exam Vitals Vital Signs Date Temp Pulse Resp B/P (MAP) Pulse Ox O2 O2 Flow FiO2 Time Delivery Rate 02/25/19 62 16 97/41 (59) 99 Mechanical 07:00 Ventilator 02/25/19 30 05:21 02/25/19 98.8 04:00 Intake and Output 02/24/19 02/24/19 02/25/19 1515:00 23:00 07:00 IntakeIntake Total 312.060 ml 748.32 ml 806.64 ml OutputOutput Total 285 ml 280 ml 460 ml BalanceBalance 27.060 ml 468.32 ml 346.64 ml Results Results 24hrs Laboratory Tests Test 02/24/19 12:30 7/20/19 15:30 02/24/19 16:50 02/24/19 16:57 Bedside Glucose 106 44 *L 220 Blood Gas Blood arterial Specimen Source Arterial Blood 02/24/2019 3:45:2 Date Drawn 2 PM Arterial Blood pH 7.403 (Temp corrected) Arterial Blood 40.2 pCO2 (Temp correct) Arterial Blood 97.6 H pO2 (Temp corrected) Arterial Blood 24.5 HCO3 Arterial Blood -0.2 Base Excess Arterial Blood 96.8 Oxygen Saturation Dawson Test ACCEPTAB Arterial Blood Right Brachial Gas Puncture Site Arterial 0.2 Blood Carboxyhemo globin Arterial Blood 0 Methemoglobin Blood Gas A-a O2 69.1 H Differential Oxyhemoglobin 96.6 Percent Blood Gas 37.0 Temperature Blood Gas Actual 32 Respiration Rate Blood Gas VENT - CPAP Modality FiO2 30.0 Blood Gas Low 5.0 PEEP Setting Blood Gas JUDY WILD Notified Whom Blood Gas 02/24/2019 4:05:2 Notified Time 0 PM Test 02/24/19 21:03 02/24/19 23:38 02/25/19 00:31 02/25/19 04:25 Bedside Glucose 120 170 Potassium Level 3.9 3.9 Magnesium Level 2.5 White Blood Count 8.9 Red Blood Count 4.03 L Hemoglobin 11.7 L Hematocrit 37.4 Mean Corpuscular 92.8 Volume Mean Corpuscular 29.0 Hemoglobin Mean Corpuscular 31.3 L Hemoglobin Concen t Red Cell 12.5 Distribution Width Platelet Count 408 Mean Platelet 10.9 H Volume Immature 0.700 H Granulocytes % Neutrophils % 74.2 Lymphocytes % 11.9 L Monocytes % 7.9 Eosinophils % 4.6 Basophils % 0.7 Nucleated Red 0.0 Blood Cells % Immature 0.060 H Granulocytes # Neutrophils # 6.6 Lymphocytes # 1.1 Monocytes # 0.7 Eosinophils # 0.4 Basophils # 0.1 Nucleated Red 0.0 Blood Cells # Sodium Level 142 Chloride Level 109 Carbon Dioxide 26 Level Anion Gap 7 Blood Urea 31 H Nitrogen Creatinine 1.26 H Est Glomerular Filtrat Rate mL/min Glucose Level 166 Calcium Level 8.5 Test 02/25/19 04:38 02/25/19 08:30 Bedside Glucose 145 152 Medications Medication Current Medications Ondansetron HCl (Zofran Inj) 4 mg Q6H PRN IV NAUSEA AND/OR VOMITING; Start 02/12/19 at 07:30 Ipratropium [place] (Atrovent Hfa) 2 puff Q2H RESP THERAPY PRN INH SHORTNESS OF BREATH; Start 02/12/19 at 07:30 Acetaminophen (Tylenol Liquid) 650 mg Q6H PRN PO PAIN LEVEL 1-3 OR FEVER Last administered on 02/17/19at 20:02; Admin Dose 650 MG; Start 02/12/19 at 07:30 Acetaminophen (Tylenol Supp) 650 mg Q4H PRN [place] PAIN LEVEL 1-3 OR FEVER; Start 02/12/19 at 07:30 Aspirin (Aspirin) 81 mg DAILY PO Last administered on 02/25/19at 08:36; Admin Dose 81 MG; Start 02/12/19 at 09:00 Clopidogrel Bisulfate (plaVIX) 75 mg DAILY NGT Last administered on 02/25/19at 08:36; Admin Dose 75 MG; Start 02/12/19 at 09:00 Atorvastatin Calcium (Lipitor) 80 mg QHS NGT Last administered on 02/24/19at 21:07; Admin Dose 80 MG; Start 02/12/19 at 21:00 Miscellaneous Information 1 ea NOTE XX ; Start 02/12/19 at 09:30 Glucose (Glutose) 15 gm Q15M PRN PO DECREASED GLUCOSE; Start 02/12/19 at 09:30 Glucose (Glutose) 22.5 gm Q15M PRN PO DECREASED GLUCOSE; Start 02/12/19 at 09:30 Dextrose (D50w Syringe) 25 ml Q15M PRN IV DECREASED GLUCOSE Last administered on 02/24/19at 16:53; Admin Dose 25 ML; Start 02/12/19 at 09:30 Dextrose (D50w Syringe) 50 ml Q15M PRN IV DECREASED GLUCOSE; Start 02/12/19 at 09:30 Glucagon (Glucagen) 1 mg Q15M PRN IM DECREASED GLUCOSE; Start 02/12/19 at 09:30 Glucose (Glutose) 15 gm Q15M PRN BUCCAL DECREASED GLUCOSE; Start 02/12/19 at 09:30 Insulin Aspart (Novolog Insulin Pen) NOVOLOG *MODERATE* ALGORI... Q4 SC Last administered on 02/25/19at 04:42; Admin Dose 2 UNIT; Start 02/12/19 at 23:07 Sodium Hypochlorite (Dakins Diluted (1/40)) 1 applic DAILY TP Last administered on 02/25/19 08:37; Admin Dose 1 APPLIC; Start 02/15/19 at 09:00 Povidone Iodine (Povidone-Iodine) 1 applic DAILY TOP Last administered on 02/25/19at 08:37; Admin Dose 1 APPLIC; Start 02/14/19 at 20:00 Senna (Senokot) 2 tab BID NGT Last administered on 02/24/19at 21:07; Admin Dose 2 TAB; Start 02/15/19 at 21:00 Polyethylene Glycol (Miralax) 17 gm DAILY NGT Last administered on 02/18/19at 08:45; Admin Dose 17 GM; Start 02/16/19 at 09:00 Docusate Sodium (Colace Liquid Cup) 200 mg BID NGT Last administered on 02/24/19at 21:07; Admin Dose 200 MG; Start 02/17/19 at 09:00 Bisacodyl (Dulcolax Supp) 5 mg DAILY PRN [place] CONSTIPATION; Start 02/17/19 at 10:00 Vancomycin HCl (Vanco Iv Per Pharmacy) VANCOMYCIN PER PHARMACY PER PROTOCOL XX ; Start 02/17/19 at 09:30 Insulin Glargine (Lantus) 36 units BID SC Last administered on 02/24/19at 21:09; Admin Dose 36 UNITS; Start 02/19/19 at 21:00 Albuterol/ Ipratropium (Duoneb) 3 ml Q2H RESP THERAPY PRN HHN SHORTNESS OF BREATH; Start 02/19/19 at 19:00 Lorazepam (Ativan) 0.5 mg Q12H PRN IV ANXIETY; Start 02/19/19 at 19:30 Famotidine (Pepcid Iv) 20 mg DAILY IV Last administered on 02/24/19at 08:58; Admin Dose 20 MG; Start 02/20/19 at 09:00 Midazolam HCl 50 ml @ 1 mls/hr TITRATE IV ; Start 02/19/19 at 21:00 Nystatin (Nystatin Oint) 1 applic BID TOP Last administered on 02/25/19at 08:38; Admin Dose 1 APPLIC; Start 02/21/19 at 09:00 Piperacillin Sod/ Tazobactam Sod 3.375 gm/Dextrose 100 ml @ 200 mls/hr Q6 IVPB Last administered on 02/25/19 05:45; Admin Dose 200 MLS/HR; Start 02/21/19 at 12:00 Carvedilol (Coreg) 6.25 mg BID PO Last administered on 02/25/19 08:36; Admin Dose 6.25 MG; Start 02/22/19 at 09:00 Lisinopril (Zestril) 5 mg DAILY NGT Last administered on 02/23/19 08:23; Admin Dose 5 MG; Start 02/22/19 at 09:00; Status Hold Diphenhydramine HCl (Benadryl) 25 mg Q6H PRN PO ITCHING Last administered on 02/23/19 10:48; Admin Dose 25 MG; Start 02/23/19 at 11:00 Vancomycin HCl 250 ml @ 125 mls/hr Q36H IVPB Last administered on 02/24/19 15:21; Admin Dose 125 MLS/HR; Start 02/24/19 at 16:00 Fentanyl 100 ml @ 2.5 mls/hr TITRATE IV Last administered on 02/24/19 10:52; Admin Dose 2.5 MLS/HR; Start 02/24/19 at 09:30 Collagenase (Santyl) 1 applic BID TOP Last administered on 02/25/19 08:37; Admin Dose 1 APPLIC; Start 02/24/19 at 10:30 PATSY JONES Feb 25, 2019 09:08
--- NOTE | 2019-02-25 09:55 | CONS ---
Consult Date/Type/Reason Admit Date/Time Feb 12, 2019 at 04:44 Initial Consult Date 02/20/19 Type of Consult Pulmonary Requesting Provider: PATSY JONES Date/Time of Note DATE: 02/25/19 TIME: 09:54 Subjective Awake alert this morning on CPAP trial. Objective Vital Signs Date Temp Pulse Resp B/P (MAP) Pulse Ox O2 O2 Flow FiO2 Time Delivery Rate 02/25/19 63 08:00 02/25/19 16 97/41 (59) 99 Mechanical 07:00 Ventilator 02/25/19 30 05:21 02/25/19 98.8 04:00 Intake and Output 02/24/19 02/24/19 02/25/19 1515:00 23:00 07:00 IntakeIntake Total 312.060 ml 748.32 ml 806.64 ml OutputOutput Total 285 ml 280 ml 460 ml BalanceBalance 27.060 ml 468.32 ml 346.64 ml Exam GENERAL: Elderly appearing lady no acute distress, orally intubated VITAL SIGNS: per chart NECK: Supple. No JVD or lymphadenopathy. CARDIAC EXAM: S1, S2. No added sounds or murmurs. CHEST: Diminished air entry bilaterally ABDOMEN: Soft, nontender. No guarding or rebound. EXTREMITIES: No cyanosis, clubbing edema +2 NEUROLOGIC: Generalized weakness. No focal deficits Vent Setting Ventilator Support Mode: AC Fraction of Inspired Oxygen pe: 30 Positive End Expiratory Pressu: 5.0 Results/Medications Result Diagram: 02/25/19 0425 02/25/19 0425 Results 24 hrs Laboratory Tests Test 02/24/19 12:30 02/24/19 15:30 02/24/19 16:50 02/24/19 16:57 Bedside Glucose 106 44 *L 220 Blood Gas Blood arterial Specimen Source Arterial Blood 02/24/2019 3:45:2 Date Drawn 2 PM Arterial Blood pH 7.403 (Temp corrected) Arterial Blood 40.2 pCO2 (Temp correct) Arterial Blood 97.6 H pO2 (Temp corrected) Arterial Blood 24.5 HCO3 Arterial Blood -0.2 Base Excess Arterial Blood 96.8 Oxygen Saturation Dawson Test ACCEPTAB Arterial Blood Right Brachial Gas Puncture Site Arterial 0.2 Blood Carboxyhemo globin Arterial Blood 0 Methemoglobin Blood Gas A-a O2 69.1 H Differential Oxyhemoglobin 96.6 Percent Blood Gas 37.0 Temperature Blood Gas Actual 32 Respiration Rate Blood Gas VENT - CPAP Modality FiO2 30.0 Blood Gas Low 5.0 PEEP Setting Blood Gas JUDY WILD Notified Whom Blood Gas 02/24/2019 4:05:2 Notified Time 0 PM Test 02/24/19 21:03 02/24/19 23:38 02/25/19 00:31 02/25/19 04:25 Bedside Glucose 120 170 Potassium Level 3.9 3.9 Magnesium Level 2.5 White Blood Count 8.9 Red Blood Count 4.03 L Hemoglobin 11.7 L Hematocrit 37.4 Mean Corpuscular 92.8 Volume Mean Corpuscular 29.0 Hemoglobin Mean Corpuscular 31.3 L Hemoglobin Concen t Red Cell 12.5 Distribution Width Platelet Count 408 Mean Platelet 10.9 H Volume Immature 0.700 H Granulocytes % Neutrophils % 74.2 Lymphocytes % 11.9 L Monocytes % 7.9 Eosinophils % 4.6 Basophils % 0.7 Nucleated Red 0.0 Blood Cells % Immature 0.060 H Granulocytes # Neutrophils # 6.6 Lymphocytes # 1.1 Monocytes # 0.7 Eosinophils # 0.4 Basophils # 0.1 Nucleated Red 0.0 Blood Cells # Sodium Level 142 Chloride Level 109 Carbon Dioxide 26 Level Anion Gap 7 Blood Urea 31 H Nitrogen Creatinine 1.26 H Est Glomerular Filtrat Rate mL/min Glucose Level 166 Calcium Level 8.5 Test 02/25/19 04:38 02/25/19 08:30 Bedside Glucose 145 152 Medications Current Medications Ondansetron HCl (Zofran Inj) 4 mg Q6H PRN IV NAUSEA AND/OR VOMITING; Start 02/12/19 at 07:30 Ipratropium [place] (Atrovent Hfa) 2 puff Q2H RESP THERAPY PRN INH SHORTNESS OF BREATH; Start 02/12/19 at 07:30 Acetaminophen (Tylenol Liquid) 650 mg Q6H PRN PO PAIN LEVEL 1-3 OR FEVER Last administered on 02/17/19at 20:02; Admin Dose 650 MG; Start 02/12/19 at 07:30 Acetaminophen (Tylenol Supp) 650 mg Q4H PRN HI PAIN LEVEL 1-3 OR FEVER; Start 02/12/19 at 07:30 Aspirin (Aspirin) 81 mg DAILY PO Last administered on 02/25/19at 08:36; Admin Dose 81 MG; Start 02/12/19 at 09:00 Clopidogrel Bisulfate (plaVIX) 75 mg DAILY NGT Last administered on 02/25/19 08:36; Admin Dose 75 MG; Start 02/12/19 at 09:00 Atorvastatin Calcium (Lipitor) 80 mg QHS NGT Last administered on 02/24/19at 21:07; Admin Dose 80 MG; Start 02/12/19 at 21:00 Miscellaneous Information 1 ea NOTE XX ; Start 02/12/19 at 09:30 Glucose (Glutose) 15 gm Q15M PRN PO DECREASED GLUCOSE; Start 02/12/19 at 09:30 Glucose (Glutose) 22.5 gm Q15M PRN PO DECREASED GLUCOSE; Start 02/12/19 at 09:30 Dextrose (D50w Syringe) 25 ml Q15M PRN IV DECREASED GLUCOSE Last administered on 02/24/19at 16:53; Admin Dose 25 ML; Start 02/12/19 at 09:30 Dextrose (D50w Syringe) 50 ml Q15M PRN IV DECREASED GLUCOSE; Start 02/12/19 at 09:30 Glucagon (Glucagen) 1 mg Q15M PRN IM DECREASED GLUCOSE; Start 02/12/19 at 09:30 Glucose (Glutose) 15 gm Q15M PRN BUCCAL DECREASED GLUCOSE; Start 02/12/19 at 09:30 Insulin Aspart (Novolog Insulin Pen) NOVOLOG *MODERATE* ALGORI... Q4 SC Last administered on 02/25/19at 09:10; Admin Dose 2 UNIT; Start 02/12/19 at 23:07 Sodium Hypochlorite (Dakins Diluted ()) 1 applic DAILY TP Last administered on 02/25/19at 08:37; Admin Dose 1 APPLIC; Start 02/15/19 at 09:00 Povidone Iodine (Povidone-Iodine) 1 applic DAILY TOP Last administered on 02/25/19at 08:37; Admin Dose 1 APPLIC; Start 02/14/19 at 20:00 Senna (Senokot) 2 tab BID NGT Last administered on 02/24/19at 21:07; Admin Dose 2 TAB; Start 02/15/19 at 21:00 Polyethylene Glycol (Miralax) 17 gm DAILY NGT Last administered on 02/18/19at 0 8:45; Admin Dose 17 GM; Start 02/16/19 at 09:00 Docusate Sodium (Colace Liquid Cup) 200 mg BID NGT Last administered on 02/24/19at 21:07; Admin Dose 200 MG; Start 02/17/19 at 09:00 Bisacodyl (Dulcolax Supp) 5 mg DAILY PRN [place] CONSTIPATION; Start 02/17/19 at 10:00 Vancomycin HCl (Vanco Iv Per Pharmacy) VANCOMYCIN PER PHARMACY PER PROTOCOL XX ; Start 02/17/19 at 09:30 Insulin Glargine (Lantus) 36 units BID SC Last administered on 02/24/19at 21:09; Admin Dose 36 UNITS; Start 02/19/19 at 21:00 Albuterol/ Ipratropium (Duoneb) 3 ml Q2H RESP THERAPY PRN HHN SHORTNESS OF BREATH; Start 02/19/19 at 19:00 Lorazepam (Ativan) 0.5 mg Q12H PRN IV ANXIETY; Start 02/19/19 at 19:30 Famotidine (Pepcid Iv) 20 mg DAILY IV Last administered on 02/25/19at 08:59; Admin Dose 20 MG; Start 02/20/19 at 09:00 Midazolam HCl 50 ml @ 1 mls/hr TITRATE IV ; Start 02/19/19 at 21:00 Nystatin (Nystatin Oint) 1 applic BID TOP Last administered on 02/25/19at 08:38; Admin Dose 1 APPLIC; Start 02/21/19 at 09:00 Piperacillin Sod/ Tazobactam Sod 3.375 gm/Dextrose 100 ml @ 200 mls/hr Q6 IVPB Last administered on 02/25/19at 05:45; Admin Dose 200 MLS/HR; Start 02/21/19 at 12:00 Carvedilol (Coreg) 6.25 mg BID PO Last administered on 02/25/19at 08:36; Admin Dose 6.25 MG; Start 02/22/19 at 09:00 Lisinopril (Zestril) 5 mg DAILY NGT Last administered on 02/23/19 08:23; Admin Dose 5 MG; Start 02/22/19 at 09:00; Status Hold Diphenhydramine HCl (Benadryl) 25 mg Q6H PRN PO ITCHING Last administered on 02/23/19at 10:48; Admin Dose 25 MG; Start 02/23/19 at 11:00 Vancomycin HCl 250 ml @ 125 mls/hr Q36H IVPB Last administered on 02/24/19at 15:21; Admin Dose 125 MLS/HR; Start 02/24/19 at 16:00 Fentanyl 100 ml @ 2.5 mls/hr TITRATE IV Last administered on 02/24/19 10:52; Admin Dose 2.5 MLS/HR; Start 02/24/19 at 09:30 Collagenase (Santyl) 1 applic BID TOP Last administered on 02/25/19 08:37; Admin Dose 1 APPLIC; Start 02/24/19 at 10:30 Assessment/Plan Hospital Course (Demo Recall) Assessment 1. Acute hypoxemic respiratory failure 2. Likely acute tracheobronchitis with congestive cardiac failure 3. Peripheral vascular disease 4. History of diabetes mellitus 5. History of coronary artery disease status post coronary intervention 6. Encephalopathy toxic metabolic Plan 1. Continue ventilation CPAP trial this morning hopefully safely extubate, continues Precedex. Post extubation will likely require CPAP or BiPAP. 2. Post extubation speech therapy evaluation with aspiration precautions 3. Continue diuretics per cardiology 4. DVT GI prophylaxis Critical care time 40 minutes Patient may need [facility] facility given multiple comorbidities KAYLAH OMALLEY MD, [facility] Feb 25, 2019 09:55
[2019-02-25] MEDS: DEXTROSE 50% 50 ML SYRINGE IV PRN ×2 (13:20→16:03)
[2019-02-25] MEDS ORDERED: hydrALAzine 20 MG INJ IV ONE (20:00)
[2019-02-25] MEDS: ATORVASTATIN 80 MG TAB NGT SCH (20:55)
[2019-02-25] MEDS: ACETAMINOPHEN 650 MG SUPP PR PRN ×2 (22:32→22:44)
[2019-02-26] VITALS (29 sets, daily range): BP systolic 140–182; BP diastolic 40–117; PULSE 72–107; RESP 13–29
[2019-02-26] MEDS ORDERED: morphine 2 MG INJ IV STA (00:07)
[2019-02-26] MEDS: PIPERACILLIN/TAZO 3.375 GM in DEXTROSE 5% 100 ML IVPB SCH ×4 (00:56→17:15)
[2019-02-26] MEDS: INSULIN ASPART [NOVOLOG] 3 ML PEN SC SCH ×6 (01:00→20:00)
[2019-02-26] MEDS: ALBUTEROL/IPRATROPIUM (NEB) 3 ML AMP HHN PRN ×2 (01:06→12:13)
[2019-02-26] MEDS: VANCOMYCIN 1 GM 250 ML IVPB SCH (04:29)
[2019-02-26] MEDS: FAMOTIDINE 20 MG INJ IV SCH (08:58)
[2019-02-26] MEDS: DOCUSATE SODIUM 10 MG/ML (10ML CUP) NGT SCH ×2 (08:58→21:00)
[2019-02-26] MEDS: DAKINS 0.0125%(1/40) 473 ML SOLUTION TP SCH (08:59)
[2019-02-26] MEDS: SENNA TAB NGT SCH ×2 (08:59→21:00)
[2019-02-26] MEDS: BALSAM PERU/CASTOR OIL 60 GM TUBE TOP SCH ×2 (08:59→22:58)
[2019-02-26] MEDS: POLYETHYLENE GLYCOL 17 GM PACKET NGT SCH (08:59)
[2019-02-26] MEDS: POVIDONE IODINE 10% 28.4 GM OINT TOP SCH (09:00)
[2019-02-26] MEDS: NYSTATIN 15 GM OINT TOP SCH ×2 (09:00→22:59)
[2019-02-26] MEDS: COLLAGENASE 5 GM (UD JAR) TOP SCH ×2 (09:04→23:00)
--- NOTE | 2019-02-26 10:09 | CONS ---
Consult Date/Type/Reason Admit Date/Time Feb 12, 2019 at 04:44 Initial Consult Date 02/20/19 Type of Consult Pulmonary Requesting Provider: PATSY JONES Date/Time of Note DATE: 02/26/19 TIME: 10:08 Subjective Patient comfortable post extubation no respiratory distress. Objective Vital Signs Date Temp Pulse Resp B/P (MAP) Pulse Ox O2 O2 Flow FiO2 Time Delivery Rate 02/26/19 95 28 170/70 94 Nasal 2.0 09:00 (103) Cannula 02/26/19 98.8 08:00 02/25/19 21 20:00 Intake and Output 02/25/19 02/25/19 02/26/19 1515:00 23:00 07:00 IntakeIntake Total 180 ml 100 ml 450 ml OutputOutput Total 400 ml 510 ml 455 ml BalanceBalance -220 ml -410 ml -5 ml Exam GENERAL: Elderly appearing lady no acute distress, VITAL SIGNS: per chart NECK: Supple. No JVD or lymphadenopathy. CARDIAC EXAM: S1, S2. No added sounds or murmurs. CHEST: Diminished air entry bilaterally ABDOMEN: Soft, nontender. No guarding or rebound. EXTREMITIES: No cyanosis, clubbing edema +2 NEUROLOGIC: Generalized weakness. No focal deficits Vent Setting Ventilator Support Mode: CPAP, PS Fraction of Inspired Oxygen pe: 21 Positive End Expiratory Pressu: 5.0 Results/Medications Result Diagram: 02/26/19 0415 02/26/19 0400 Results 24 hrs Laboratory Tests Test 02/25/19 13:17 02/25/19 13:37 02/25/19 13:49 02/25/19 16:02 Bedside Glucose 62 L 123 119 65 L Test 02/25/19 16:20 02/25/19 16:34 02/25/19 19:48 02/25/19 20:11 Bedside Glucose 116 105 46 *L 176 Test 02/25/19 21:10 02/26/19 01:01 02/26/19 04:00 02/26/19 04:15 Bedside Glucose 125 89 Sodium Level 144 Potassium Level 3.8 Chloride Level 110 Carbon Dioxide Level 28 Anion Gap 6 Blood Urea Nitrogen 22 H Creatinine 1.34 H Est Glomerular Filtrat Rate mL/min Glucose Level 95 # Calcium Level 8.8 Phosphorus Level 4.4 Magnesium Level 2.4 White Blood Count 12.0 #H Red Blood Count 4.19 L Hemoglobin 12.3 Hematocrit 39.7 Mean Corpuscular 94.7 Volume Mean Corpuscular 29.4 Hemoglobin Mean Corpuscular 31.0 L Hemoglobin Concent Red Cell 12.9 Distribution Width Platelet Count 455 H Mean Platelet Volume 10.5 H Immature 0.600 H Granulocytes % Neutrophils % 83.2 H Lymphocytes % 6.2 L Monocytes % 6.5 Eosinophils % 2.7 Basophils % 0.8 Nucleated Red Blood 0.0 Cells % Immature 0.070 H Granulocytes # Neutrophils # 10.0 H Lymphocytes # 0.7 L Monocytes # 0.8 Eosinophils # 0.3 Basophils # 0.1 Nucleated Red Blood 0.0 Cells # Test 02/26/19 04:35 02/26/19 08:57 Bedside Glucose 90 70 Medications Current Medications Ondansetron HCl (Zofran Inj) 4 mg Q6H PRN IV NAUSEA AND/OR VOMITING; Start 02/12/19 at 07:30 Ipratropium [place] (Atrovent Hfa) 2 puff Q2H RESP THERAPY PRN INH SHORTNESS OF BREATH; Start 02/12/19 at 07:30 Acetaminophen (Tylenol Liquid) 650 mg Q6H PRN PO PAIN LEVEL 1-3 OR FEVER Last administered on 02/17/19at 20:02; Admin Dose 650 MG; Start 02/12/19 at 07:30 Acetaminophen (Tylenol Supp) 650 mg Q4H PRN [place] PAIN LEVEL 1-3 OR FEVER Last administered on 02/25/19at 22:32; Admin Dose 650 MG; Start 02/12/19 at 07:30 Aspirin (Aspirin) 81 mg DAILY PO Last administered on 02/25/19at 08:36; Admin Dose 81 MG; Start 02/12/19 at 09:00 Clopidogrel Bisulfate (plaVIX) 75 mg DAILY NGT Last administered on 02/25/19at 08:36; Admin Dose 75 MG; Start 02/12/19 at 09:00 Atorvastatin Calcium (Lipitor) 80 mg QHS NGT Last administered on 02/24/19at 21:07; Admin Dose 80 MG; Start 02/12/19 at 21:00 Miscellaneous Information 1 ea NOTE XX ; Start 02/12/19 at 09:30 Glucose (Glutose) 15 gm Q15M PRN PO DECREASED GLUCOSE; Start 02/12/19 at 09:30 Glucose (Glutose) 22.5 gm Q15M PRN PO DECREASED GLUCOSE; Start 02/12/19 at 09:30 Dextrose (D50w Syringe) 25 ml Q15M PRN IV DECREASED GLUCOSE Last administered on 02/25/19at 16:03; Admin Dose 25 ML; Start 02/12/19 at 09:30 Dextrose (D50w Syringe) 50 ml Q15M PRN IV DECREASED GLUCOSE Last administered on 02/25/19at 19:58; Admin Dose 50 ML; Start 02/12/19 at 09:30 Glucagon (Glucagen) 1 mg Q15M PRN IM DECREASED GLUCOSE; Start 02/12/19 at 09:30 Glucose (Glutose) 15 gm Q15M PRN BUCCAL DECREASED GLUCOSE; Start 02/12/19 at 09:30 Insulin Aspart (Novolog Insulin Pen) NOVOLOG *MODERATE* ALGORI... Q4 SC Last administered on 02/25/19 09:10; Admin Dose 2 UNIT; Start 02/12/19 at 23:07 Sodium Hypochlorite (Dakins Diluted (40)) 1 applic DAILY TP Last administered on 02/26/19 08:59; Admin Dose 1 APPLIC; Start 02/15/19 at 09:00 Povidone Iodine (Povidone-Iodine) 1 applic DAILY TOP Last administered on 02/26/19 09:00; Admin Dose 1 APPLIC; Start 02/14/19 at 20:00 Senna (Senokot) 2 tab BID NGT Last administered on 02/24/19 21:07; Admin Dose 2 TAB; Start 02/15/19 at 21:00 Polyethylene Glycol (Miralax) 17 gm DAILY NGT Last administered on 02/18/19at 08:45; Admin Dose 17 GM; Start 02/16/19 at 09:00 Docusate Sodium (Colace Liquid Cup) 200 mg BID NGT Last administered on 02/24/19at 21:07; Admin Dose 200 MG; Start 02/17/19 at 09:00 Bisacodyl (Dulcolax Supp) 5 mg DAILY PRN [place] CONSTIPATION; Start 02/17/19 at 10:00 Vancomycin HCl (Vanco Iv Per Pharmacy) VANCOMYCIN PER PHARMACY PER PROTOCOL XX ; Start 02/17/19 at 09:30 Insulin Glargine (Lantus) 36 units BID SC Last administered on 02/24/19 21:09; Admin Dose 36 UNITS; Start 02/19/19 at 21:00; Status Hold Albuterol/ Ipratropium (Duoneb) 3 ml Q2H RESP THERAPY PRN HHN SHORTNESS OF BREATH Last administered on 02/26/19 01:06; Admin Dose 3 ML; Start 02/19/19 at 19:00 Famotidine (Pepcid Iv) 20 mg DAILY IV Last administered on 02/26/19 08:58; Admin Dose 20 MG; Start 02/20/19 at 09:00 Midazolam HCl 50 ml @ 1 mls/hr TITRATE IV ; Start 02/19/19 at 21:00 Nystatin (Nystatin Oint) 1 applic BID TOP Last administered on 02/26/19 09:00; Admin Dose 1 APPLIC; Start 02/21/19 at 09:00 Piperacillin Sod/ Tazobactam Sod 3.375 gm/Dextrose 100 ml @ 200 mls/hr Q6 IVPB Last administered on 02/26/19 05:18; Admin Dose 200 MLS/HR; Start 02/21/19 at 12:00 Carvedilol (Coreg) 6.25 mg BID PO Last administered on 02/25/19 08:36; Admin Dose 6.25 MG; Start 02/22/19 at 09:00 Lisinopril (Zestril) 5 mg DAILY NGT Last administered on 02/23/19 08:23; Admin Dose 5 MG; Start 02/22/19 at 09:00; Status Hold Diphenhydramine HCl (Benadryl) 25 mg Q6H PRN PO ITCHING Last administered on 02/23/19 10:48; Admin Dose 25 MG; Start 02/23/19 at 11:00 Vancomycin HCl 250 ml @ 125 mls/hr Q36H IVPB Last administered on 02/26/19 04:29; Admin Dose 125 MLS/HR; Start 02/24/19 at 16:00 Fentanyl 100 ml @ 2.5 mls/hr TITRATE IV Last administered on 02/24/19 10:52; Admin Dose 2.5 MLS/HR; Start 02/24/19 at 09:30 Collagenase (Santyl) 1 applic BID TOP Last administered on 02/26/19at 09:04; Admin Dose 1 APPLIC; Start 02/24/19 at 10:30 Assessment/Plan Hospital Course (Demo Recall) Assessment 1. Acute hypoxemic respiratory failure 2. Likely acute tracheobronchitis with congestive cardiac failure 3. Peripheral vascular disease 4. History of diabetes mellitus 5. History of coronary artery disease status post coronary intervention 6. Encephalopathy toxic metabolic Plan 1. Speech therapy evaluation post extubation continue bronchodilators and aspiration precautions. 2. Incentive spirometry nocturnal noninvasive positive pressure ventilation for likely obstructive sleep apnea 3. Continue diuretics per cardiology 4. DVT GI prophylaxis 5. Physical therapy evaluation Critical care time 40 minutes Patient may need [facility] facility given multiple comorbidities K[facility] OMALLEY MD, [facility] Feb 26, 2019 10:09
[2019-02-26] MEDS: CLOPIDOGREL 75 MG TAB NGT SCH (11:08)
[2019-02-26] MEDS: ASPIRIN 81 MG TAB PO SCH (11:09)
[2019-02-26] MEDS: MULTIVITAMINS THERAPEUTIC TAB PO SCH (13:27)
[2019-02-26] MEDS: ZINC SULFATE 220 MG CAP PO SCH (13:27)
[2019-02-26] MEDS: DIPHENHYDRAMINE 25 MG CAP PO PRN ×2 (14:38→19:55)
[2019-02-26] MEDS: ACETAMINOPHEN 650MG/20.3ML CUP PO PRN ×2 (14:38→20:31)
--- NOTE | 2019-02-26 15:30 | PN ---
Date/Time of Note Date/Time of Note DATE: 02/26/19 TIME: 15:23 Assessment/Plan VTE Prophylaxis Risk score (from Nsg)>0 risk: 16 SCD applied (from Nsg): No SCD contraindicated: other (PAD) Pharmacological prophylaxis: NA/contraindicated Pharm contraindication: anticoag not tolerated Lines/Catheters IV Catheter Type (from Nrs): Peripheral IV Urinary Cath still in place: Yes Reason Cath still needed: other (indicate) (immobile) Assessment/Plan Assessment/Plan 73 yo morbidly obese woman history of peripheral vascular disease, diabetes type II, CHF, likely COPD presents with acute respiratory failure due to CHF exace rbation. #Sepsis-slowly improving, wound culture positive for MRSA, Klebsiella, enterococcus, yeast. Of note patient developed fever to 102 on 02/17, but no fevers for the last 5 days. Wound culture positive for polymicrobial growth. -For now continue empiric vanco and zosyn -Continue wound care as needed for the right toe ulcer #Acute respiratory failure- - CTPA negative for PE - Likely CHF exacerbation. Echocardiogram performed 5 days ago, shows ejection fraction 35% - Extubated 02/25 - Continue nighttime BiPAP and breathing treatments. #Peripheral vascular disease - Cont aspirin, plavix, statin #Diabetic/vascular right foot ulcer- Patient also has outpatient vascular followup- Patient has failed R sided revascularization in the past; per Vascular Dr Naidu repeat attempt at revascularization would be unwise. Wound swab was done which is positive for bacterial growth polymicrobial - Continue supportive treatment with local wound care and antibiotics for now, no debridement planned. #VICTOR M- May have been due to unstable hemodynamics on admission; or contrast load from CTPA-creatinine slightly more elevated at 1.4 today. Patient does have adequate urine output although slightly low per hour. -Monitor BUN/creatinine levels, continue free water per campaign consultant teams #Diabetes type II, insulin dependent. A1c= 9.7, patient did have one episode of hypoglycemia yesterday, given D5 fluids to help counteract that yesterday. -We will hold Lantus this morning, monitor sugars, continue sliding scale insulin #CHF-again echo results noted -Monitor, continue low-dose beta-naebel per cardiology recommendations -Follow-up further cardiology recommendations, now back on low-dose IV Lasix. # hypernatremia: Resolved -Monitor basic metabolic panel in the a.m. #History of DVT- LE duplex negative for DVT. 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 GI: famotidine DVT: None Critical care time spent in patient care today equals 50 minutes Result Diagram: 02/26/19 0415 02/26/19 0400 Subjective 24 Hr Interval Summary Free Text/Dictation Patient extubated yesterday. Currently awake. Slightly drowsy. Granddaughter Ann at bedside. I updated her about the plan. Exam/Review of Systems Exam Vitals Vital Signs Date Temp Pulse Resp B/P (MAP) Pulse Ox O2 O2 Flow FiO2 Time Delivery Rate 02/26/19 81 24 156/61 95 Nasal 2.0 13:00 (92) Cannula 02/26/19 99.3 12:00 02/25/19 20:00 Intake and Output 02/25/19 02/25/19 02/26/19 1515:00 23:00 07:00 IntakeIntake Total 180 ml 100 ml 450 ml OutputOutput Total 400 ml 510 ml 455 ml BalanceBalance -220 ml -410 ml -5 ml Exam Gen: Morbidly obese woman lying in bed, awake and alert. HEENT: Opens eyes occasionally Neck: Supple, no lymphadenopathy. Card: Regular rate and rhythm, no murmurs. Pulm: Slightly distant breath sounds bilaterally, no crackles Abd: Soft, nontender, nondistended. Hypoactive bowel sounds. 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 R leg with well healed bypass scar below the knee. Skin: R lower leg erythema has resolved. Right great toe medial ulcer, clean based, no drainage, no surrounding erythema. Results Results 24hrs Laboratory Tests Test 02/25/19 16:02 02/25/19 16:20 02/25/19 16:34 02/25/19 19:48 Bedside Glucose 65 L 116 105 46 *L Test 02/25/19 20:11 02/25/19 21:10 02/26/19 01:01 02/26/19 04:00 Bedside Glucose 176 125 89 Sodium Level 144 Potassium Level 3.8 Chloride Level 110 Carbon Dioxide Level 28 Anion Gap 6 Blood Urea Nitrogen 22 H Creatinine 1.34 H Est Glomerular Filtrat Rate mL/min Glucose Level 95 # Calcium Level 8.8 Phosphorus Level 4.4 Magnesium Level 2.4 Test 02/26/19 04:15 02/26/19 04:35 02/26/19 08:57 02/26/19 11:14 White Blood Count 12.0 #H Red Blood Count 4.19 L Hemoglobin 12.3 Hematocrit 39.7 Mean Corpuscular 94.7 Volume Mean Corpuscular 29.4 Hemoglobin Mean Corpuscular 31.0 L Hemoglobin Concent Red Cell 12.9 Distribution Width Platelet Count 455 H Mean Platelet Volume 10.5 H Immature 0.600 H Granulocytes % Neutrophils % 83.2 H Lymphocytes % 6.2 L Monocytes % 6.5 Eosinophils % 2.7 Basophils % 0.8 Nucleated Red Blood 0.0 Cells % Immature 0.070 H Granulocytes # Neutrophils # 10.0 H Lymphocytes # 0.7 L Monocytes # 0.8 Eosinophils # 0.3 Basophils # 0.1 Nucleated Red Blood 0.0 Cells # Bedside Glucose 90 70 102 Test 02/26/19 13:28 Bedside Glucose 95 Medications Medication Current Medications Ondansetron HCl (Zofran Inj) 4 mg Q6H PRN IV NAUSEA AND/OR VOMITING; Start 02/12/19 at 07:30 Ipratropium [place] (Atrovent Hfa) 2 puff Q2H RESP THERAPY PRN INH SHORTNESS OF BREATH; Start 02/12/19 at 07:30 Acetaminophen (Tylenol Liquid) 650 mg Q6H PRN PO PAIN LEVEL 1-3 OR FEVER Last administered on 02/26/19at 14:38; Admin Dose 650 MG; Start 02/12/19 at 07:30 Acetaminophen (Tylenol Supp) 650 mg Q4H PRN [place] PAIN LEVEL 1-3 OR FEVER Last administered on 02/25/19at 22:32; Admin Dose 650 MG; Start 02/12/19 at 07:30 Aspirin (Aspirin) 81 mg DAILY PO Last administered on 02/26/19at 11:09; Admin Dose 81 MG; Start 02/12/19 at 09:00 Clopidogrel Bisulfate (plaVIX) 75 mg DAILY NGT Last administered on 02/26/19at 11:08; Admin Dose 75 MG; Start 02/12/19 at 09:00 Atorvastatin Calcium (Lipitor) 80 mg QHS NGT Last administered on 02/24/19at 21:07; Admin Dose 80 MG; Start 02/12/19 at 21:00 Miscellaneous Information 1 ea NOTE XX ; Start 02/12/19 at 09:30 Glucose (Glutose) 15 gm Q15M PRN PO DECREASED GLUCOSE; Start 02/12/19 at 09:30 Glucose (Glutose) 22.5 gm Q15M PRN PO DECREASED GLUCOSE; Start 02/12/19 at 09:30 Dextrose (D50w Syringe) 25 ml Q15M PRN IV DECREASED GLUCOSE Last administered on 02/25/19at 16:03; Admin Dose 25 ML; Start 02/12/19 at 09:30 Dextrose (D50w Syringe) 50 ml Q15M PRN IV DECREASED GLUCOSE Last administered on 02/25/19at 19:58; Admin Dose 50 ML; Start 02/12/19 at 09:30 Glucagon (Glucagen) 1 mg Q15M PRN IM DECREASED GLUCOSE; Start 02/12/19 at 09:30 Glucose (Glutose) 15 gm Q15M PRN BUCCAL DECREASED GLUCOSE; Start 02/12/19 at 09:30 Insulin Aspart (Novolog Insulin Pen) NOVOLOG *MODERATE* ALGORI... Q4 SC Last administered on 02/25/19at 09:10; Admin Dose 2 UNIT; Start 02/12/19 at 23:07 Sodium Hypochlorite (Dakins Diluted (40)) 1 applic DAILY TP Last administered on 02/26/19at 08:59; Admin Dose 1 APPLIC; Start 02/15/19 at 09:00 Povidone Iodine (Povidone-Iodine) 1 applic DAILY TOP Last administered on 02/26/19at 09:00; Admin Dose 1 APPLIC; Start 02/14/19 at 20:00 Senna (Senokot) 2 tab BID NGT Last administered on 02/24/19at 21:07; Admin Dose 2 TAB; Start 02/15/19 at 21:00 Polyethylene Glycol (Miralax) 17 gm DAILY NGT Last administered on 02/18/19at 08:45; Admin Dose 17 GM; Start 02/16/19 at 09:00 Docusate Sodium (Colace Liquid Cup) 200 mg BID NGT Last administered on 02/24/19at 21:07; Admin Dose 200 MG; Start 02/17/19 at 09:00 Bisacodyl (Dulcolax Supp) 5 mg DAILY PRN [place] CONSTIPATION; Start 02/17/19 at 10:00 Vancomycin HCl (Vanco Iv Per Pharmacy) VANCOMYCIN PER PHARMACY PER PROTOCOL XX ; Start 02/17/19 at 09:30 Insulin Glargine (Lantus) 36 units BID SC Last administered on 02/24/19 21:09; Admin Dose 36 UNITS; Start 02/19/19 at 21:00; Status Hold Albuterol/ Ipratropium (Duoneb) 3 ml Q2H RESP THERAPY PRN HHN SHORTNESS OF BREATH Last administered on 02/26/19 12:13; Admin Dose 3 ML; Start 02/19/19 at 19:00 Famotidine (Pepcid Iv) 20 mg DAILY IV Last administered on 02/26/19 08:58; Admin Dose 20 MG; Start 02/20/19 at 09:00 Midazolam HCl 50 ml @ 1 mls/hr TITRATE IV ; Start 02/19/19 at 21:00 Nystatin (Nystatin Oint) 1 applic BID TOP Last administered on 02/26/19 09:00; Admin Dose 1 APPLIC; Start 02/21/19 at 09:00 Piperacillin Sod/ Tazobactam Sod 3.375 gm/Dextrose 100 ml @ 200 mls/hr Q6 IVPB Last administered on 02/26/19 11:53; Admin Dose 200 MLS/HR; Start 02/21/19 at 12:00 Carvedilol (Coreg) 6.25 mg BID PO Last administered on 02/26/19 11:09; Admin Dose 6.25 MG; Start 02/22/19 at 09:00 Lisinopril (Zestril) 5 mg DAILY NGT Last administered on 02/23/19 08:23; Admin Dose 5 MG; Start 02/22/19 at 09:00; Status Hold Diphenhydramine HCl (Benadryl) 25 mg Q6H PRN PO ITCHING Last administered on 02/26/19 14:38; Admin Dose 25 MG; Start 02/23/19 at 11:00 Vancomycin HCl 250 ml @ 125 mls/hr Q36H IVPB Last administered on 02/26/19 04:29; Admin Dose 125 MLS/HR; Start 02/24/19 at 16:00 Fentanyl 100 ml @ 2.5 mls/hr TITRATE IV Last administered on 02/24/19 10:52; Admin Dose 2.5 MLS/HR; Start 02/24/19 at 09:30 Collagenase (Santyl) 1 applic BID TOP Last administered on 02/26/19 09:04; Admin Dose 1 APPLIC; Start 02/24/19 at 10:30 Zinc Sulfate (Zinc Sulfate) 220 mg DAILY PO Last administered on 02/26/19 13:27; Admin Dose 220 MG; Start 02/26/19 at 12:00 Multivitamins Therapeutic (Theragran) 1 tab DAILY PO Last administered on 02/26/19 13:27; Admin Dose 1 TAB; Start 02/26/19 at 12:00 Miscellaneous Information (*Rx Drug Level Order Reminder*) VANCOMYCIN TROUGH AT 1500 1500 ONCE XX ; Start 02/27/19 at 15:00; Stop 02/27/19 at 15:01 ANTON OZUNA MD Feb 26, 2019 15:30
--- NOTE | 2019-02-26 17:40 | CONS ---
Consult Date/Type/Reason Admit Date/Time Feb 12, 2019 at 04:44 Initial Consult Date 02/20/19 Type of Consultation: cv Requesting Provider: PATSY JONES Date/Time of Note DATE: 02/26/19 TIME: 17:37 Subjective Cardiology follow-up progress note Subjective: Case discussed with staff and telemetry was reviewed. Patient has remained in normal sinus rhythm D/W grand-daughter in detail Patient is extubated 02/25/19 blood pressure has remained stable /high now There is no report of any chest pain or pressure Objective: General: Obese female status post intubation on the ventilator HEENT: NC/AT. pupils are equal. round. NECK: Unable to assess for JVD. no stridor. CV: RRR. systolic murmur; no gallop or rubs. PULM: no wheezing + mild rhonchi. 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 Right leg wound noted neuro: Sedated Psych: calm rectal: deferred : Deferred Echocardiogram was personally reviewed which shows: Normal left ventricular cavity size. Mild concentric left ventricular hypertrophy. Moderate left ventricular systolic dysfunction. Ejection fraction is visually estimated at 35 %. Tissue Doppler/Mitral Doppler indices are consistent with impaired relaxation (Stage I diastolic dysfunction). Multiple segmental wall motion abnormalities. Mitral valve leaflets appear mildly thickened. Mild mitral annular calcification. Trace mitral regurgitation. Normal appearance and function of the tricuspid valve with trace physiologic regurgitation. Normal right ventricular systolic pressure. suboptimal study. Chest x-ray done 02/19/2019 shows: There is mild atelectasis at the lung bases, unchanged. Mild pulmonary edema is unchanged. The heart size is normal. There are small bilateral pleural effusions. There is no pneumothorax. cxr 02/22 reviewed 1. Interval decreased central pulmonary vascular congestion. 2. Stable cardiomegaly with aortic atherosclerosis. 3. Stable position of support devices. Objective Vitals Vital Signs Date Temp Pulse Resp B/P (MAP) Pulse Ox O2 O2 Flow FiO2 Time Delivery Rate 02/26/19 3.0 16:58 02/26/19 80 16:00 02/26/19 99.1 21 153/63 97 Nasal 16:00 (93) Cannula 02/25/19 21 20:00 Intake and Output 02/25/19 02/25/19 02/26/19 1515:00 23:00 07:00 IntakeIntake Total 180 ml 100 ml 450 ml OutputOutput Total 400 ml 510 ml 455 ml BalanceBalance -220 ml -410 ml -5 ml Results/Medications Result Diagram: 02/26/19 0415 02/26/19 0400 Results 24 hrs Laboratory Tests Test 02/25/19 19:48 02/25/19 20:11 02/25/19 21:10 02/26/19 01:01 Bedside Glucose 46 *L 176 125 89 Test 02/26/19 04:00 02/26/19 04:15 02/26/19 04:35 02/26/19 08:57 Sodium Level 144 Potassium Level 3.8 Chloride Level 110 Carbon Dioxide Level 28 Anion Gap 6 Blood Urea Nitrogen 22 H Creatinine 1.34 H Est Glomerular Filtrat Rate mL/min Glucose Level 95 # Calcium Level 8.8 Phosphorus Level 4.4 Magnesium Level 2.4 White Blood Count 12.0 #H Red Blood Count 4.19 L Hemoglobin 12.3 Hematocrit 39.7 Mean Corpuscular 94.7 Volume Mean Corpuscular 29.4 Hemoglobin Mean Corpuscular 31.0 L Hemoglobin Concent Red Cell 12.9 Distribution Width Platelet Count 455 H Mean Platelet Volume 10.5 H Immature 0.600 H Granulocytes % Neutrophils % 83.2 H Lymphocytes % 6.2 L Monocytes % 6.5 Eosinophils % 2.7 Basophils % 0.8 Nucleated Red Blood 0.0 Cells % Immature 0.070 H Granulocytes # Neutrophils # 10.0 H Lymphocytes # 0.7 L Monocytes # 0.8 Eosinophils # 0.3 Basophils # 0.1 Nucleated Red Blood 0.0 Cells # Bedside Glucose 90 70 Test 02/26/19 11:14 02/26/19 13:28 02/26/19 17:17 Bedside Glucose 102 95 100 Home Meds Reported Medications Insulin Glargine,Hum.rec.anlog (Basaglar Kwikpen U-100) 100 Unit/1 Ml Insuln.pen, 0-12 UNIT SC QHS for PER SLIDING SCALE, EA 02/12/19 Insulin Aspart* (Novolog Insulin Pen*) 100 Unit/Ml Soln, 0-12 SC .SLIDING SCALE AC, EA 02/12/19 Dulaglutide (Trulicity) 1.5 Mg/0.5 Ml Pen.injctr, 1.5 MG SQ WEEKLY 02/12/19 Aspirin* (Aspirin* Chew) 81 Mg Tab.chew, 81 MG PO DAILY, TAB.CHEW 02/12/19 Clopidogrel Bisulfate (Clopidogrel) 75 Mg Tablet, 1 TAB ORAL DAILY 02/12/19 Tramadol HCl (Tramadol HCl) 50 Mg Tablet, 1 TAB ORAL Q6 PRN for PAIN LEVEL 4-6 02/12/19 Arginine Hcl (Arginine Hcl) 1 Gm Powder, 1 GM MC DAILY 02/12/19 Sacubitril/Valsartan (Entresto 49 mg-51 mg Tablet) 1 Each Tablet, 1 TAB ORAL DAILY 02/12/19 Atorvastatin* (Atorvastatin*) 80 Mg Tablet, 1 TAB ORAL QHS 02/12/19 Carvedilol* (Carvedilol*) 25 Mg Tablet, 1 TAB ORAL BID 02/12/19 Spironolactone* (Aldactone*) 25 Mg Tablet, 12.5 MG PO QAM, #60 TAB 02/12/19 Ampicillin Sodium-Sulbactam Sodium (Unasyn*) 3 Gm Soln, 3 GM IVPB Q6, VIAL 02/12/19 Medications Current Medications Ondansetron HCl (Zofran Inj) 4 mg Q6H PRN IV NAUSEA AND/OR VOMITING; Start 02/12/19 at 07:30 Ipratropium [place] (Atrovent Hfa) 2 puff Q2H RESP THERAPY PRN INH SHORTNESS OF BREATH; Start 02/12/19 at 07:30 Acetaminophen (Tylenol Liquid) 650 mg Q6H PRN PO PAIN LEVEL 1-3 OR FEVER Last administered on 02/26/19at 14:38; Admin Dose 650 MG; Start 02/12/19 at 07:30 Acetaminophen (Tylenol Supp) 650 mg Q4H PRN [place] PAIN LEVEL 1-3 OR FEVER Last administered on 02/25/19at 22:32; Admin Dose 650 MG; Start 02/12/19 at 07:30 Aspirin (Aspirin) 81 mg DAILY PO Last administered on 02/26/19at 11:09; Admin Dose 81 MG; Start 02/12/19 at 09:00 Clopidogrel Bisulfate (plaVIX) 75 mg DAILY NGT Last administered on 02/26/19at 11:08; Admin Dose 75 MG; Start 02/12/19 at 09:00 Atorvastatin Calcium (Lipitor) 80 mg QHS NGT Last administered on 02/24/19at 21:07; Admin Dose 80 MG; Start 02/12/19 at 21:00 Miscellaneous Information 1 ea NOTE XX ; Start 02/12/19 at 09:30 Glucose (Glutose) 15 gm Q15M PRN PO DECREASED GLUCOSE; Start 02/12/19 at 09:30 Glucose (Glutose) 22.5 gm Q15M PRN PO DECREASED GLUCOSE; Start 02/12/19 at 09:30 Dextrose (D50w Syringe) 25 ml Q15M PRN IV DECREASED GLUCOSE Last administered on 02/25/19at 16:03; Admin Dose 25 ML; Start 02/12/19 at 09:30 Dextrose (D50w Syringe) 50 ml Q15M PRN IV DECREASED GLUCOSE Last administered on 02/25/19at 19:58; Admin Dose 50 ML; Start 02/12/19 at 09:30 Glucagon (Glucagen) 1 mg Q15M PRN IM DECREASED GLUCOSE; Start 02/12/19 at 09:30 Glucose (Glutose) 15 gm Q15M PRN BUCCAL DECREASED GLUCOSE; Start 02/12/19 at 09:30 Insulin Aspart (Novolog Insulin Pen) NOVOLOG *MODERATE* ALGORI... Q4 SC Last administered on 02/25/19at 09:10; Admin Dose 2 UNIT; Start 02/12/19 at 23:07 Sodium Hypochlorite (Dakins Diluted (40)) 1 applic DAILY TP Last administered on 02/26/19at 08:59; Admin Dose 1 APPLIC; Start 02/15/19 at 09:00 Senna (Senokot) 2 tab BID NGT Last administered on 02/24/19at 21:07; Admin Dose 2 TAB; Start 02/15/19 at 21:00 Polyethylene Glycol (Miralax) 17 gm DAILY NGT Last administered on 02/18/19at 08:45; Admin Dose 17 GM; Start 02/16/19 at 09:00 Docusate Sodium (Colace Liquid Cup) 200 mg BID NGT Last administered on 02/24/19at 21:07; Admin Dose 200 MG; Start 02/17/19 at 09:00 Bisacodyl (Dulcolax Supp) 5 mg DAILY PRN [place] CONSTIPATION; Start 02/17/19 at 10:00 Vancomycin HCl (Vanco Iv Per Pharmacy) VANCOMYCIN PER PHARMACY PER PROTOCOL XX ; Start 02/17/19 at 09:30 Insulin Glargine (Lantus) 36 units BID SC Last administered on 02/24/19 21:09; Admin Dose 36 UNITS; Start 02/19/19 at 21:00; Status Hold Albuterol/ Ipratropium (Duoneb) 3 ml Q2H RESP THERAPY PRN HHN SHORTNESS OF BREATH Last administered on 02/26/19 12:13; Admin Dose 3 ML; Start 02/19/19 at 19:00 Famotidine (Pepcid Iv) 20 mg DAILY IV Last administered on 02/26/19 08:58; Adm in Dose 20 MG; Start 02/20/19 at 09:00 Midazolam HCl 50 ml @ 1 mls/hr TITRATE IV ; Start 02/19/19 at 21:00 Nystatin (Nystatin Oint) 1 applic BID TOP Last administered on 02/26/19 09:00; Admin Dose 1 APPLIC; Start 02/21/19 at 09:00 Piperacillin Sod/ Tazobactam Sod 3.375 gm/Dextrose 100 ml @ 200 mls/hr Q6 IVPB Last administered on 02/26/19 17:15; Admin Dose 200 MLS/HR; Start 02/21/19 at 12:00 Carvedilol (Coreg) 6.25 mg BID PO Last administered on 02/26/19 11:09; Admin Dose 6.25 MG; Start 02/22/19 at 09:00 Lisinopril (Zestril) 5 mg DAILY NGT Last administered on 02/23/19 08:23; Admin Dose 5 MG; Start 02/22/19 at 09:00; Status Hold Diphenhydramine HCl (Benadryl) 25 mg Q6H PRN PO ITCHING Last administered on 02/26/19 14:38; Admin Dose 25 MG; Start 02/23/19 at 11:00 Vancomycin HCl 250 ml @ 125 mls/hr Q36H IVPB Last administered on 02/26/19 04:29; Admin Dose 125 MLS/HR; Start 02/24/19 at 16:00 Fentanyl 100 ml @ 2.5 mls/hr TITRATE IV Last administered on 02/24/19 10:52; Admin Dose 2.5 MLS/HR; Start 02/24/19 at 09:30 Collagenase (Santyl) 1 applic BID TOP Last administered on 02/26/19at 09:04; Admin Dose 1 APPLIC; Start 02/24/19 at 10:30 Zinc Sulfate (Zinc Sulfate) 220 mg DAILY PO Last administered on 02/26/19 13:27; Admin Dose 220 MG; Start 02/26/19 at 12:00 Multivitamins Therapeutic (Theragran) 1 tab DAILY PO Last administered on 02/26/19at 13:27; Admin Dose 1 TAB; Start 02/26/19 at 12:00 Miscellaneous Information (*Rx Drug Level Order Reminder*) VANCOMYCIN TROUGH AT 1500 1500 ONCE XX ; Start 02/27/19 at 15:00; Stop 02/27/19 at 15:01 Assessment/Plan Hospital Course (Demo Recall) Acute hypoxemic respiratory failure status post intubation now extubated 02/25/19 Congestive heart failure: Acute on chronic secondary systolic heart failure Sepsis Coronary artery disease with history of [place] History of ischemic cardiomyopathy ejection fraction of 35% History of multiple PCI Severe peripheral vascular disease status post left leg amputation as well as right leg severe PAD Hypertension diabetes dyslipidemia Hyponatremia Acute kidney injury; improved now Recommendations: Continue with aspirin and Plavix diabetic control as per internal medicine We will cont carvedilol and inc as needed/tolerated Antibiotic management as per internal medicine ID recommendations DVT prophylaxis GI prophylaxis as per internal medicine add aldactone resume lisinopril Thank you for his referral. We will continue to follow along with you YOGI NICOLAS MD [facility] YOGI NICOLAS MD Feb 26, 2019 17:40
[2019-02-26] MEDS: LISINOPRIL 5 MG TAB PO SCH (17:48)
[2019-02-26] MEDS: SPIRONOLACTONE 25 MG TAB PO SCH (17:48)
[2019-02-26] MEDS: ATORVASTATIN 80 MG TAB NGT SCH (21:00)
[2019-02-26] MEDS ORDERED: LORAZEPAM 2 MG INJ IV ONE ×2 (23:00→23:30)
[2019-02-26] MEDS ORDERED: HALOPERIDOL 5 MG INJ IM ONE (23:30)
[2019-02-27] VITALS (29 sets, daily range): BP systolic 111–204; BP diastolic 47–95; PULSE 66–90; RESP 16–27
[2019-02-27] MEDS ORDERED: LABETALOL HCL 20MG INJ IV STA (01:17)
[2019-02-27] MEDS ORDERED: LABETALOL HCL 20MG INJ ONE (01:22)
[2019-02-27] MEDS: INSULIN ASPART [NOVOLOG] 3 ML PEN SC SCH ×6 (01:40→21:11)
[2019-02-27] MEDS: PIPERACILLIN/TAZO 3.375 GM in DEXTROSE 5% 100 ML IVPB SCH ×5 (02:07→23:40)
[2019-02-27] MEDS: POLYETHYLENE GLYCOL 17 GM PACKET NGT SCH (08:00)
[2019-02-27] MEDS: SENNA TAB NGT SCH ×2 (08:00→21:19)
[2019-02-27] MEDS: DAKINS 0.0125%(1/40) 473 ML SOLUTION TP SCH (08:26)
[2019-02-27] MEDS: COLLAGENASE 5 GM (UD JAR) TOP SCH ×2 (08:27→21:15)
[2019-02-27] MEDS: BALSAM PERU/CASTOR OIL 60 GM TUBE TOP SCH ×2 (08:27→21:16)
[2019-02-27] MEDS: NYSTATIN 15 GM OINT TOP SCH ×2 (08:28→21:15)
[2019-02-27] MEDS: DOCUSATE SODIUM 10 MG/ML (10ML CUP) NGT SCH ×2 (08:56→21:00)
--- NOTE | 2019-02-27 09:15 | PN ---
Date/Time of Note Date/Time of Note DATE: 02/27/19 TIME: 09:10 Assessment/Plan VTE Prophylaxis Risk score (from Ns)>0 risk: 14 SCD applied (from Ns): No SCD contraindicated: other (PAD) Pharmacological prophylaxis: NA/contraindicated Pharm contraindication: anticoag not tolerated Lines/Catheters IV [facility]from [facility] Peripheral IV Urinary Cath still in place: Yes Reason Cath still needed: pres ulcer contaminated by urine Assessment/Plan Assessment/Plan 73 yo morbidly obese woman history of peripheral vascular disease, diabetes type II, CHF, likely COPD presents with acute respiratory failure due to CHF exacerbation. #Sepsis-slowly improving, wound culture positive for MRSA, Klebsiella, enterococcus, yeast. Of note patient developed fever to 102 on 02/17, but no fevers for the last 5 days. Wound culture positive for polymicrobial growth. -For now continue empiric vanco and zosyn -Continue wound care as needed for the right toe ulcer -Also will send C diff for several days of liquid diarrhea. #Acute respiratory failure- - CTPA negative for PE - Likely CHF exacerbation. Echocardiogram performed 5 days ago, shows ejection fraction 35% - Extubated 02/25 - Continue nighttime BiPAP and breathing treatments. #Peripheral vascular disease - Cont aspirin, plavix, statin #Diabetic/vascular right foot ulcer- Patient also has outpatient vascular followup- Patient has failed R sided revascularization in the past; per Vascular Dr Naidu repeat attempt at revascularization would be unwise. Wound swab was done which is positive for bacterial growth polymicrobial - Continue supportive treatment with local wound care and antibiotics for now, no debridement planned. #VICTOR M- May have been due to unstable hemodynamics on admission; or contrast load from CTPA-creatinine slightly more elevated at 1.4 today. Patient does have adequate urine output although slightly low per hour. -Monitor BUN/creatinine levels, continue free water per quality assurance consultant teams #Diabetes type II, insulin dependent. A1c= 9.7, patient did have one episode of hypoglycemia yesterday, given D5 fluids to help counteract that yesterday. -We will hold Lantus this morning, monitor sugars, continue sliding scale ins ulin #CHF-again echo results noted -Monitor, continue low-dose beta-nabeel per cardiology recommendations -Follow-up further cardiology recommendations, now back on low-dose IV Lasix. # hypernatremia: Resolved -Monitor basic metabolic panel in the a.m. #History of DVT- LE duplex negative for DVT. 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 GI: famotidine DVT: None Critical care time spent in patient care today equals 50 minutes Result Diagram: 02/27/19 0438 02/27/19 0446 Results 24hrs Laboratory Tests Test 02/26/19 11:14 02/26/19 13:28 02/26/19 17:17 02/26/19 19:59 Bedside Glucose 102 95 100 101 Test 02/27/19 01:37 02/27/19 04:38 02/27/19 04:45 02/27/19 04:46 Bedside Glucose 155 154 White Blood Count 14.6 #H Red Blood Count 4.22 Hemoglobin 12.5 Hematocrit 39.6 Mean Corpuscular 93.8 Volume Mean Corpuscular 29.6 Hemoglobin Mean Corpuscular 31.6 L Hemoglobin Concen t Red Cell 12.8 Distribution Width Platelet Count 472 H Mean Platelet 10.5 H Volume Immature 0.600 H Granulocytes % Neutrophils % 89.3 H Lymphocytes % 4.3 L Monocytes % 3.1 Eosinophils % 1.9 Basophils % 0.8 Nucleated Red 0.0 Blood Cells % Immature 0.090 H Granulocytes # Neutrophils # 13.0 H Lymphocytes # 0.6 L Monocytes # 0.5 Eosinophils # 0.3 Basophils # 0.1 Nucleated Red 0.0 Blood Cells # Sodium Level 144 Potassium Level 4.0 Chloride Level 110 Carbon Dioxide 27 Level Anion Gap 7 Blood Urea 21 H Nitrogen Creatinine 1.26 H Est Glomerular Filtrat Rate mL/min Glucose Level 184 Calcium Level 9.0 Magnesium Level 2.3 Total Bilirubin 0.3 Direct Bilirubin 0.00 Indirect 0.3 Bilirubin Aspartate Amino 27 Transf (AST/SGOT) Alanine 56 Aminotransferase (ALT/SGPT) Alkaline 126 H Phosphatase B-Type 6900 H Natriuretic Peptide Total Protein 6.4 Albumin 3.3 Globulin 3.10 Albumin/Globulin 1.06 Ratio Test 02/27/19 07:00 02/27/19 08:26 Blood Gas Blood arterial Specimen Source Arterial Blood 02/27/2019 7:05:0 Date Drawn 0 AM Arterial Blood pH 7.369 (Temp corrected) Arterial Blood 44.0 pCO2 (Temp correct) Arterial Blood 149.7 H pO2 (Temp corrected) Arterial Blood 24.8 HCO3 Arterial Blood -0.7 Base Excess Arterial Blood 98.4 Oxygen Saturation Dawson Test ACCEPTAB Arterial Blood Right Radial Gas Puncture Site Arterial 0.3 Blood Carboxyhemo globin Arterial Blood 0 Methemoglobin Blood Gas A-a O2 157.3 H Differential Oxyhemoglobin 98.1 Percent Blood Gas 37.0 Temperature Blood Gas 16.0 Respiration Rate Blood Gas Actual 20 Respiration Rate Blood Gas MASK - BIPAP Modality FiO2 50.0 Blood Gas 10 Pressure Support Blood Gas 18/8 IPAP/EPAP Ratio Blood Gas TM Notified Whom Blood Gas 02/27/2019 7:25:0 Notified Time 0 AM Bedside Glucose 158 Subjective 24 Hr Interval Summary Free Text/Dictation Overnight patient was agitated and got several doses of haloperidol and lorazepam. This morning on noninvasive BiPAP. Still with liquid diarrhea, rectal tube. Exam/Review of Systems Exam Vitals Vital Signs Date Temp Pulse Resp B/P (MAP) Pulse Ox O2 O2 Flow FiO2 Time Delivery Rate 02/27/19 75 22 137/52 97 Nasal 06:00 (80) Cannula 02/27/19 50 05:40 02/27/19 98.2 04:00 02/27/19 2.0 02:00 Intake and Output 02/26/19 02/26/19 02/27/19 1515:00 23:00 07:00 IntakeIntake Total 200 ml 200 ml OutputOutput Total 550 ml 495 ml 290 ml BalanceBalance -350 ml -295 ml -290 ml Exam Gen: Morbidly obese woman lying in bed, awake and alert. HEENT: Opens eyes occasionally Neck: Supple, no lymphadenopathy. Card: Regular rate and rhythm, no murmurs. Pulm: Slightly distant breath sounds bilaterally, no crackles Abd: Soft, nontender, nondistended. Hypoactive bowel sounds. 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 R leg with well healed bypass scar below the knee. Skin: R lower leg erythema has resolved. R foot bandaged Results Results 24hrs Laboratory Tests Test 02/26/19 11:14 02/26/19 13:28 02/26/19 17:17 02/26/19 19:59 Bedside Glucose 102 95 100 101 Test 02/27/19 01:37 02/27/19 04:38 02/27/19 04:45 02/27/19 04:46 Bedside Glucose 155 154 White Blood Count 14.6 #H Red Blood Count 4.22 Hemoglobin 12.5 Hematocrit 39.6 Mean Corpuscular 93.8 Volume Mean Corpuscular 29.6 Hemoglobin Mean Corpuscular 31.6 L Hemoglobin Concen t Red Cell 12.8 Distribution Width Platelet Count 472 H Mean Platelet 10.5 H Volume Immature 0.600 H Granulocytes % Neutrophils % 89.3 H Lymphocytes % 4.3 L Monocytes % 3.1 Eosinophils % 1.9 Basophils % 0.8 Nucleated Red 0.0 Blood Cells % Immature 0.090 H Granulocytes # Neutrophils # 13.0 H Lymphocytes # 0.6 L Monocytes # 0.5 Eosinophils # 0.3 Basophils # 0.1 Nucleated Red 0.0 Blood Cells # Sodium Level 144 Potassium Level 4.0 Chloride Level 110 Carbon Dioxide 27 Level Anion Gap 7 Blood Urea 21 H Nitrogen Creatinine 1.26 H Est Glomerular Filtrat Rate mL/min Glucose Level 184 Calcium Level 9.0 Magnesium Level 2.3 Total Bilirubin 0.3 Direct Bilirubin 0.00 Indirect 0.3 Bilirubin Aspartate Amino 27 Transf (AST/SGOT) Alanine 56 Aminotransferase (ALT/SGPT) Alkaline 126 H Phosphatase B-Type 6900 H Natriuretic Peptide Total Protein 6.4 Albumin 3.3 Globulin 3.10 Albumin/Globulin 1.06 Ratio Test 02/27/19 07:00 02/27/19 08:26 Blood Gas Blood arterial Specimen Source Arterial Blood 02/27/2019 7:05:0 Date Drawn 0 AM Arterial Blood pH 7.369 (Temp corrected) Arterial Blood 44.0 pCO2 (Temp correct) Arterial Blood 149.7 H pO2 (Temp corrected) Arterial Blood 24.8 HCO3 Arterial Blood -0.7 Base Excess Arterial Blood 98.4 Oxygen Saturation Dawson Test ACCEPTAB Arterial Blood Right Radial Gas Puncture Site Arterial 0.3 Blood Carboxyhemo globin Arterial Blood 0 Methemoglobin Blood Gas A-a O2 157.3 H Differential Oxyhemoglobin 98.1 Percent Blood Gas 37.0 Temperature Blood Gas 16.0 Respiration Rate Blood Gas Actual 20 Respiration Rate Blood Gas MASK - BIPAP Modality FiO2 50.0 Blood Gas 10 Pressure Support Blood Gas 18/8 IPAP/EPAP Ratio Blood Gas TM Notified Whom Blood Gas 02/27/2019 7:25:0 Notified Time 0 AM Bedside Glucose 158 Medications Medication Current Medications Ondansetron HCl (Zofran Inj) 4 mg Q6H PRN IV NAUSEA AND/OR VOMITING; Start 02/12/19 at 07:30 Ipratropium [place] (Atrovent Hfa) 2 puff Q2H RESP THERAPY PRN INH SHORTNESS OF BREATH; Start 02/12/19 at 07:30 Acetaminophen (Tylenol Liquid) 650 mg Q6H PRN PO PAIN LEVEL 1-3 OR FEVER Last administered on 02/26/19at 20:31; Admin Dose 650 MG; Start 02/12/19 at 07:30 Acetaminophen (Tylenol Supp) 650 mg Q4H PRN [place] PAIN LEVEL 1-3 OR FEVER Last administered on 02/25/19 22:32; Admin Dose 650 MG; Start 02/12/19 at 07:30 Aspirin (Aspirin) 81 mg DAILY PO Last administered on 02/26/19at 11:09; Admin Dose 81 MG; Start 02/12/19 at 09:00 Clopidogrel Bisulfate (plaVIX) 75 mg DAILY NGT Last administered on 02/26/19at 11:08; Admin Dose 75 MG; Start 02/12/19 at 09:00 Atorvastatin Calcium (Lipitor) 80 mg QHS NGT Last administered on 02/24/19at 21:07; Admin Dose 80 MG; Start 02/12/19 at 21:00 Miscellaneous Information 1 ea NOTE XX ; Start 02/12/19 at 09:30 Glucose (Glutose) 15 gm Q15M PRN PO DECREASED GLUCOSE; Start 02/12/19 at 09:30 Glucose (Glutose) 22.5 gm Q15M PRN PO DECREASED GLUCOSE; Start 02/12/19 at 09:30 Dextrose (D50w Syringe) 25 ml Q15M PRN IV DECREASED GLUCOSE Last administered on 02/25/19at 16:03; Admin Dose 25 ML; Start 02/12/19 at 09:30 Dextrose (D50w Syringe) 50 ml Q15M PRN IV DECREASED GLUCOSE Last administered on 02/25/19at 19:58; Admin Dose 50 ML; Start 02/12/19 at 09:30 Glucagon (Glucagen) 1 mg Q15M PRN IM DECREASED GLUCOSE; Start 02/12/19 at 09:30 Glucose (Glutose) 15 gm Q15M PRN BUCCAL DECREASED GLUCOSE; Start 02/12/19 at 09:30 Insulin Aspart (Novolog Insulin Pen) NOVOLOG *MODERATE* ALGORI... Q4 SC Last administered on 02/27/19 08:33; Admin Dose 2 UNIT; Start 02/12/19 at 23:07 Sodium Hypochlorite (Dakins Diluted ()) 1 applic DAILY TP Last administered on 02/27/19 08:26; Admin Dose 1 APPLIC; Start 02/15/19 at 09:00 Senna (Senokot) 2 tab BID NGT Last administered on 02/24/19 21:07; Admin Dose 2 TAB; Start 02/15/19 at 21:00 Polyethylene Glycol (Miralax) 17 gm DAILY NGT Last administered on 02/18/19 08:45; Admin Dose 17 GM; Start 02/16/19 at 09:00 Docusate Sodium (Colace Liquid Cup) 200 mg BID NGT Last administered on 02/24/19 21:07; Admin Dose 200 MG; Start 02/17/19 at 09:00 Bisacodyl (Dulcolax Supp) 5 mg DAILY PRN [place] CONSTIPATION; Start 02/17/19 at 10:00 Vancomycin HCl (Vanco Iv Per Pharmacy) VANCOMYCIN PER PHARMACY PER PROTOCOL XX ; Start 02/17/19 at 09:30 Insulin Glargine (Lantus) 36 units BID SC Last administered on 02/24/19 21:09; Admin Dose 36 UNITS; Start 02/19/19 at 21:00; Status Hold Albuterol/ Ipratropium (Duoneb) 3 ml Q2H RESP THERAPY PRN HHN SHORTNESS OF BREATH Last administered on 02/26/19 12:13; Admin Dose 3 ML; Start 02/19/19 at 19:00 Famotidine (Pepcid Iv) 20 mg DAILY IV Last administered on 02/26/19 08:58; Admin Dose 20 MG; Start 02/20/19 at 09:00 Midazolam HCl 50 ml @ 1 mls/hr TITRATE IV ; Start 02/19/19 at 21:00 Nystatin (Nystatin Oint) 1 applic BID TOP Last administered on 02/27/19 08:28; Admin Dose 1 APPLIC; Start 02/21/19 at 09:00 Piperacillin Sod/ Tazobactam Sod 3.375 gm/Dextrose 100 ml @ 200 mls/hr Q6 IVPB Last administered on 02/27/19 06:17; Admin Dose 200 MLS/HR; Start 02/21/19 at 12:00 Carvedilol (Coreg) 6.25 mg BID PO Last administered on 02/26/19 11:09; Admin Dose 6.25 MG; Start 02/22/19 at 09:00 Diphenhydramine HCl (Benadryl) 25 mg Q6H PRN PO ITCHING Last administered on 02/26/19 19:55; Admin Dose 25 MG; Start 02/23/19 at 11:00 Vancomycin HCl 250 ml @ 125 mls/hr Q36H IVPB Last administered on 02/26/19 04:29; Admin Dose 125 MLS/HR; Start 02/24/19 at 16:00 Fentanyl 100 ml @ 2.5 mls/hr TITRATE IV Last administered on 02/24/19 10:52; Admin Dose 2.5 MLS/HR; Start 02/24/19 at 09:30 Collagenase (Santyl) 1 applic BID TOP Last administered on 02/27/19 08:27; Admin Dose 1 APPLIC; Start 02/24/19 at 10:30 Zinc Sulfate (Zinc Sulfate) 220 mg DAILY PO Last administered on 02/26/19 13:27; Admin Dose 220 MG; Start 02/26/19 at 12:00 Multivitamins Therapeutic (Theragran) 1 tab DAILY PO Last administered on 02/26/19 13:27; Admin Dose 1 TAB; Start 02/26/19 at 12:00 Miscellaneous Information (*Rx Drug Level Order Reminder*) VANCOMYCIN TROUGH AT 1500 1500 ONCE XX ; Start 02/27/19 at 15:00; Stop 02/27/19 at 15:01 Lisinopril (Zestril) 5 mg DAILY PO Last administered on 02/26/19 17:48; Admin Dose 5 MG; Start 02/26/19 at 17:30 Spironolactone (Aldactone) 25 mg DAILY PO Last administered on 02/26/19 17:48; Admin Dose 25 MG; Start 02/26/19 at 17:30 Labetalol HCl (Labetalol) 10 mg Q6 PRN IV ELEVATED BLOOD PRESSURE; Start 02/27/19 at 01:30 ANTON OZUNA MD Feb 27, 2019 09:15
--- NOTE | 2019-02-27 09:31 | CONS ---
Assessment/Plan Assessment/Plan Assessment/Plan (Daily) Chest x-ray and ABG are pending from this morning. Assessment and recommendations; next 1. Patient with history of underlying cardiomyopathy admitted for CHF exacerbation status post extubation after being reintubated once. Maintained on BiPAP now. 2. History of severe peripheral vascular disease. 3. History of diabetes and hypertension. 4. Right lower extremity wound growing multiple organisms. Patient on appropriate antimicrobial regimen. 5. Mild renal insufficiency. 6. Interval correction of hypernatremia. 7. History of CAD with prior coronary intervention. Continue current supportive care. Continue BiPAP. Further recommendations once chest x-ray and EKG are obtained. Overall prognosis is guarded. Consultation Date/Type/Reason Admit Date/Time Feb 12, 2019 at 04:44 Initial Consult Date 02/13/19 Type of Consult Pulmonary/critical care Patient is a 73-year-old lady who was admitted to the hospital with complaints of shortness of breath. Patient was in respiratory failure and had to be intubated and then transferred to ICU. By the time I saw her, patient is orally intubated and sedated with propofol drip. Patient did not appear to be in any distress whatsoever. Per medical records, no CPR was done. Past medical history; 1. 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 2. Diabetes. 3. Peripheral vascular disease. With multiple right lower extremity surgeries as well. 4. CHF. 5. Chronic steroid use. Diagnosis is unclear. Medications; reviewed. Allergies; as outlined above. Family history, occupational history, social history are not available. Review of system; unable to be obtained. General exam; elderly female, orally intubated, sedated, currently in no distress. Requesting Provider: PATSY JONES Date/Time of Note DATE: 02/27/19 TIME: 09:28 24 HR Interval Summary Free Text/Dictation Patient's condition is tenuous at best. On BiPAP. Patient however has remained hemodynamically stable. General exam; elderly woman, on BiPAP. Awake and responsive. But appearing mildly lethargic. Exam/Review of Systems Exam Vitals Vital Signs Date Temp Pulse Resp B/P (MAP) Pulse Ox O2 O2 Flow FiO2 Time Delivery Rate 02/27/19 75 22 137/52 97 Nasal 06:00 (80) Cannula 02/27/19 50 05:40 02/27/19 98.2 04:00 02/27/19 2.0 02:00 Intake and Output 02/26/19 02/26/19 02/27/19 1515:00 23:00 07:00 IntakeIntake Total 200 ml 200 ml OutputOutput Total 550 ml 495 ml 290 ml BalanceBalance -350 ml -295 ml -290 ml Exam H EENT exam; supple neck, positive JVD. No lymphadenopathy. Midline trachea. No thyromegaly. Pupils are small bilaterally. No neck masses. Chest exam; diminished but clear breath sounds. S1-S2 audible, no murmurs. Regular rhythm. Abdomen exam; soft, mildly protuberant. Nontender. Bowel sounds audible. Extremity exam; trace peripheral edema. Left leg is amputated at hip. Multiple scars are present in right lower extremity. APPEALS COORDINATOR exam; patient is awake and responsive. Results Result Diagram: 02/27/19 0438 02/27/19 0446 Results 24hrs Laboratory Tests Test 02/26/19 11:14 02/26/19 13:28 02/26/19 17:17 02/26/19 19:59 Bedside Glucose 102 95 100 101 Test 02/27/19 01:37 02/27/19 04:38 02/27/19 04:45 02/27/19 04:46 Bedside Glucose 155 154 White Blood Count 14.6 #H Red Blood Count 4.22 Hemoglobin 12.5 Hematocrit 39.6 Mean Corpuscular 93.8 Volume Mean Corpuscular 29.6 Hemoglobin Mean Corpuscular 31.6 L Hemoglobin Concen t Red Cell 12.8 Distribution Width Platelet Count 472 H Mean Platelet 10.5 H Volume Immature 0.600 H Granulocytes % Neutrophils % 89.3 H Lymphocytes % 4.3 L Monocytes % 3.1 Eosinophils % 1.9 Basophils % 0.8 Nucleated Red 0.0 Blood Cells % Immature 0.090 H Granulocytes # Neutrophils # 13.0 H Lymphocytes # 0.6 L Monocytes # 0.5 Eosinophils # 0.3 Basophils # 0.1 Nucleated Red 0.0 Blood Cells # Sodium Level 144 Potassium Level 4.0 Chloride Level 110 Carbon Dioxide 27 Level Anion Gap 7 Blood Urea 21 H Nitrogen Creatinine 1.26 H Est Glomerular Filtrat Rate mL/min Glucose Level 184 Calcium Level 9.0 Magnesium Level 2.3 Total Bilirubin 0.3 Direct Bilirubin 0.00 Indirect 0.3 Bilirubin Aspartate Amino 27 Transf (AST/SGOT) Alanine 56 Aminotransferase (ALT/SGPT) Alkaline 126 H Phosphatase B-Type 6900 H Natriuretic Peptide Total Protein 6.4 Albumin 3.3 Globulin 3.10 Albumin/Globulin 1.06 Ratio Test 02/27/19 07:00 02/27/19 08:26 Blood Gas Blood arterial Specimen Source Arterial Blood 02/27/2019 7:05:0 Date Drawn 0 AM Arterial Blood pH 7.369 (Temp corrected) Arterial Blood 44.0 pCO2 (Temp correct) Arterial Blood 149.7 H pO2 (Temp corrected) Arterial Blood 24.8 HCO3 Arterial Blood -0.7 Base Excess Arterial Blood 98.4 Oxygen Saturation Dawson Test ACCEPTAB Arterial Blood Right Radial Gas Puncture Site Arterial 0.3 Blood Carboxyhemo globin Arterial Blood 0 Methemoglobin Blood Gas A-a O2 157.3 H Differential Oxyhemoglobin 98.1 Percent Blood Gas 37.0 Temperature Blood Gas 16.0 Respiration Rate Blood Gas Actual 20 Respiration Rate Blood Gas MASK - BIPAP Modality FiO2 50.0 Blood Gas 10 Pressure Support Blood Gas 18/8 IPAP/EPAP Ratio Blood Gas TM Notified Whom Blood Gas 02/27/2019 7:25:0 Notified Time 0 AM Bedside Glucose 158 Medications Medication Current Medications Ondansetron HCl (Zofran Inj) 4 mg Q6H PRN IV NAUSEA AND/OR VOMITING; Start at 07:30 Ipratropium [place] (Atrovent Hfa) 2 puff Q2H RESP THERAPY PRN INH SHORTNESS OF BREATH; Start 02/12/19 at 07:30 Acetaminophen (Tylenol Liquid) 650 mg Q6H PRN PO PAIN LEVEL 1-3 OR FEVER Last administered on 02/26/19at 20:31; Admin Dose 650 MG; Start 02/12/19 at 07:30 Acetaminophen (Tylenol Supp) 650 mg Q4H PRN [place] PAIN LEVEL 1-3 OR FEVER Last administered on 02/25/19at 22:32; Admin Dose 650 MG; Start 02/12/19 at 07:30 Aspirin (Aspirin) 81 mg DAILY PO Last administered on 02/26/19at 11:09; Admin Dose 81 MG; Start 02/12/19 at 09:00 Clopidogrel Bisulfate (plaVIX) 75 mg DAILY NGT Last administered on 02/26/19at 11:08; Admin Dose 75 MG; Start 02/12/19 at 09:00 Atorvastatin Calcium (Lipitor) 80 mg QHS NGT Last administered on 02/24/19 21:07; Admin Dose 80 MG; Start 02/12/19 at 21:00 Miscellaneous Information 1 ea NOTE XX ; Start 02/12/19 at 09:30 Glucose (Glutose) 15 gm Q15M PRN PO DECREASED GLUCOSE; Start 02/12/19 at 09:30 Glucose (Glutose) 22.5 gm Q15M PRN PO DECREASED GLUCOSE; Start 02/12/19 at 09:30 Dextrose (D50w Syringe) 25 ml Q15M PRN IV DECREASED GLUCOSE Last administered on 02/25/19at 16:03; Admin Dose 25 ML; Start 02/12/19 at 09:30 Dextrose (D50w Syringe) 50 ml Q15M PRN IV DECREASED GLUCOSE Last administered on 02/25/19at 19:58; Admin Dose 50 ML; Start 02/12/19 at 09:30 Glucagon (Glucagen) 1 mg Q15M PRN IM DECREASED GLUCOSE; Start 02/12/19 at 09:30 Glucose (Glutose) 15 gm Q15M PRN BUCCAL DECREASED GLUCOSE; Start 02/12/19 at 09:30 Insulin Aspart (Novolog Insulin Pen) NOVOLOG *MODERATE* ALGORI... Q4 SC Last administered on 02/27/19 08:33; Admin Dose 2 UNIT; Start 02/12/19 at 23:07 Sodium Hypochlorite (Dakins Diluted (40)) 1 applic DAILY TP Last administered on 02/27/19 08:26; Admin Dose 1 APPLIC; Start 02/15/19 at 09:00 Senna (Senokot) 2 tab BID NGT Last administered on 02/24/19 21:07; Admin Dose 2 TAB; Start 02/15/19 at 21:00 Polyethylene Glycol (Miralax) 17 gm DAILY NGT Last administered on 02/18/19 08:45; Admin Dose 17 GM; Start 02/16/19 at 09:00 Docusate Sodium (Colace Liquid Cup) 200 mg BID NGT Last administered on 02/24/19 21:07; Admin Dose 200 MG; Start 02/17/19 at 09:00 Bisacodyl (Dulcolax Supp) 5 mg DAILY PRN [place] CONSTIPATION; Start 02/17/19 at 10:00 Vancomycin HCl (Vanco Iv Per Pharmacy) VANCOMYCIN PER PHARMACY PER PROTOCOL XX ; Start 02/17/19 at 09:30 Insulin Glargine (Lantus) 36 units BID SC Last administered on 02/24/19 21:09; Admin Dose 36 UNITS; Start 02/19/19 at 21:00; Status Hold Albuterol/ Ipratropium (Duoneb) 3 ml Q2H RESP THERAPY PRN HHN SHORTNESS OF BREATH Last administered on 02/26/19 12:13; Admin Dose 3 ML; Start 02/19/19 at 19:00 Famotidine (Pepcid Iv) 20 mg DAILY IV Last administered on 02/26/19 08:58; Admin Dose 20 MG; Start 02/20/19 at 09:00 Midazolam HCl 50 ml @ 1 mls/hr TITRATE IV ; Start 02/19/19 at 21:00 Nystatin (Nystatin Oint) 1 applic BID TOP Last administered on 02/27/19 08:28; Admin Dose 1 APPLIC; Start 02/21/19 at 09:00 Piperacillin Sod/ Tazobactam Sod 3.375 gm/Dextrose 100 ml @ 200 mls/hr Q6 IVPB Last administered on 02/27/19 06:17; Admin Dose 200 MLS/HR; Start 02/21/19 at 12:00 Carvedilol (Coreg) 6.25 mg BID PO Last administered on 02/26/19 11:09; Admin Dose 6.25 MG; Start 02/22/19 at 09:00 Diphenhydramine HCl (Benadryl) 25 mg Q6H PRN PO ITCHING Last administered on 19:55; Admin Dose 25 MG; Start 02/23/19 at 11:00 Vancomycin HCl 250 ml @ 125 mls/hr Q36H IVPB Last administered on 02/26/19 04:29; Admin Dose 125 MLS/HR; Start 02/24/19 at 16:00 Fentanyl 100 ml @ 2.5 mls/hr TITRATE IV Last administered on 02/24/19 10:52; Admin Dose 2.5 MLS/HR; Start 02/24/19 at 09:30 Collagenase (Santyl) 1 applic BID TOP Last administered on 02/27/19 08:27; Admin Dose 1 APPLIC; Start 02/24/19 at 10:30 Zinc Sulfate (Zinc Sulfate) 220 mg DAILY PO Last administered on 02/26/19 13:27; Admin Dose 220 MG; Start 02/26/19 at 12:00 Multivitamins Therapeutic (Theragran) 1 tab DAILY PO Last administered on 02/26/19 13:27; Admin Dose 1 TAB; Start 02/26/19 at 12:00 Miscellaneous Information (*Rx Drug Level Order Reminder*) VANCOMYCIN TROUGH AT 1500 1500 ONCE XX ; Start 02/27/19 at 15:00; Stop 02/27/19 at 15:01 Lisinopril (Zestril) 5 mg DAILY PO Last administered on 02/26/19at 17:48; Admin Dose 5 MG; Start 02/26/19 at 17:30 Spironolactone (Aldactone) 25 mg DAILY PO Last administered on 02/26/19at 17:48; Admin Dose 25 MG; Start 02/26/19 at 17:30 Labetalol HCl (Labetalol) 10 mg Q6 PRN IV ELEVATED BLOOD PRESSURE; Start 02/27/19 at 01:30 SANTHOSH GABRIEL Feb 27, 2019 09:30
[2019-02-27] MEDS: FAMOTIDINE 20 MG INJ IV SCH (11:18)
[2019-02-27] MEDS: LABETALOL HCL 20MG INJ IV PRN ×2 (11:18→19:19)
[2019-02-27] MEDS: LISINOPRIL 5 MG TAB PO SCH ×2 (11:24→21:15)
[2019-02-27] MEDS: MULTIVITAMINS THERAPEUTIC TAB PO SCH (11:24)
[2019-02-27] MEDS: SPIRONOLACTONE 25 MG TAB PO SCH (11:24)
[2019-02-27] MEDS: CLOPIDOGREL 75 MG TAB NGT SCH (11:24)
[2019-02-27] MEDS: ZINC SULFATE 220 MG CAP PO SCH (11:24)
[2019-02-27] MEDS: ASPIRIN 81 MG TAB PO SCH (11:25)
--- NOTE | 2019-02-27 12:49 | CONS ---
Consult Date/Type/Reason Admit Date/Time Feb 12, 2019 at 04:44 Initial Consult Date 02/20/19 Type of Consultation: cv Requesting Provider: PATSY JONES Date/Time of Note DATE: 02/27/19 TIME: 12:48 Subjective Cardiology follow-up progress note Subjective: Case discussed with staff and telemetry was reviewed. Patient has remained in normal sinus rhythm Patient has been more confused today and is unable to provide reliable history to me Patient is extubated 02/25/19 blood pressure has remained stable /high now There is no report of any chest pain or pressure Objective: General: Obese female status post intubation on the ventilator HEENT: NC/AT. pupils are equal. round. NECK: Unable to assess for JVD. no stridor. CV: RRR. systolic murmur; no gallop or rubs. PULM: no wheezing + mild rhonchi. 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 Right leg wound noted neuro: Awake appears to be oriented x1 only Psych: calm rectal: deferred : Deferred Echocardiogram was personally reviewed which shows: Normal left ventricular cavity size. Mild concentric left ventricular hype rtrophy. Moderate left ventricular systolic dysfunction. Ejection fraction is visually estimated at 35 %. Tissue Doppler/Mitral Doppler indices are consistent with impaired relaxation (Stage I diastolic dysfunction). Multiple segmental wall motion abnormalities. Mitral valve leaflets appear mildly thickened. Mild mitral annular calcification. Trace mitral regurgitation. Normal appearance and function of the tricuspid valve with trace physiologic regurgitation. Normal right ventricular systolic pressure. suboptimal study. Chest x-ray done 02/19/2019 shows: There is mild atelectasis at the lung bases, unchanged. Mild pulmonary edema is unchanged. The heart size is normal. There are small bilateral pleural effusions. There is no pneumothorax. cxr 02/22 reviewed 1. Interval decreased central pulmonary vascular congestion. 2. Stable cardiomegaly with aortic atherosclerosis. 3. Stable position of support devices. Objective Vitals Vital Signs Date Temp Pulse Resp B/P (MAP) Pulse Ox O2 O2 Flow FiO2 Time Delivery Rate 02/27/19 100 30 11:15 02/27/19 77 22 175/79 Nasal 10:00 (111) Cannula 02/27/19 98.6 08:00 02/27/19 2.0 02:00 Intake and Output 7/22/19 7/22/19 7/23/19 1515:00 23:00 07:00 IntakeIntake Total 200 ml 200 ml OutputOutput Total 550 ml 495 ml 290 ml BalanceBalance -350 ml -295 ml -290 ml Results/Medications Result Diagram: 02/27/19 0438 02/27/19 0446 Results 24 hrs Laboratory Tests Test 02/26/19 13:28 02/26/19 17:17 02/26/19 19:59 02/27/19 01:37 Bedside Glucose 95 100 101 155 Test 02/27/19 04:38 02/27/19 04:45 02/27/19 04:46 02/27/19 07:00 White Blood Count 14.6 #H Red Blood Count 4.22 Hemoglobin 12.5 Hematocrit 39.6 Mean Corpuscular 93.8 Volume Mean Corpuscular 29.6 Hemoglobin Mean Corpuscular 31.6 L Hemoglobin Concen t Red Cell 12.8 Distribution Width Platelet Count 472 H Mean Platelet 10.5 H Volume Immature 0.600 H Granulocytes % Neutrophils % 89.3 H Lymphocytes % 4.3 L Monocytes % 3.1 Eosinophils % 1.9 Basophils % 0.8 Nucleated Red 0.0 Blood Cells % Immature 0.090 H Granulocytes # Neutrophils # 13.0 H Lymphocytes # 0.6 L Monocytes # 0.5 Eosinophils # 0.3 Basophils # 0.1 Nucleated Red 0.0 Blood Cells # Bedside Glucose 154 Sodium Level 144 Potassium Level 4.0 Chloride Level 110 Carbon Dioxide 27 Level Anion Gap 7 Blood Urea 21 H Nitrogen Creatinine 1.26 H Est Glomerular Filtrat Rate mL/min Glucose Level 184 Calcium Level 9.0 Magnesium Level 2.3 Total Bilirubin 0.3 Direct Bilirubin 0.00 Indirect 0.3 Bilirubin Aspartate Amino 27 Transf (AST/SGOT) Alanine 56 Aminotransferase (ALT/SGPT) Alkaline 126 H Phosphatase B-Type 6900 H Natriuretic Peptide Total Protein 6.4 Albumin 3.3 Globulin 3.10 Albumin/Globulin 1.06 Ratio Blood Gas Blood arterial Specimen Source Arterial Blood 02/27/2019 7:05:0 Date Drawn 0 AM Arterial Blood pH 7.369 (Temp corrected) Arterial Blood 44.0 pCO2 (Temp correct) Arterial Blood 149.7 H pO2 (Temp corrected) Arterial Blood 24.8 HCO3 Arterial Blood -0.7 Base Excess Arterial Blood 98.4 Oxygen Saturation Dawson Test ACCEPTAB Arterial Blood Right Radial Gas Puncture Site Arterial 0.3 Blood Carboxyhemo globin Arterial Blood 0 Methemoglobin Blood Gas A-a O2 157.3 H Differential Oxyhemoglobin 98.1 Percent Blood Gas 37.0 Temperature Blood Gas 16.0 Respiration Rate Blood Gas Actual 20 Respiration Rate Blood Gas MASK - BIPAP Modality FiO2 50.0 Blood Gas 10 Pressure Support Blood Gas 18/8 IPAP/EPAP Ratio Blood Gas TM Notified Whom Blood Gas 02/27/2019 7:25:0 Notified Time 0 AM Test 02/27/19 08:26 02/27/19 12:09 Bedside Glucose 158 172 Home Meds Reported Medications Insulin Glargine,Hum.rec.anlog (Basaglar Kwikpen U-100) 100 Unit/1 Ml Insuln.pen, 0-12 UNIT SC QHS for PER SLIDING SCALE, EA 02/12/19 Insulin Aspart* (Novolog Insulin Pen*) 100 Unit/Ml Soln, 0-12 SC .SLIDING SCALE AC, EA 02/12/19 Dulaglutide (Trulicity) 1.5 Mg/0.5 Ml Pen.injctr, 1.5 MG SQ WEEKLY 02/12/19 Aspirin* (Aspirin* Chew) 81 Mg Tab.chew, 81 MG PO DAILY, TAB.CHEW 02/12/19 Clopidogrel Bisulfate (Clopidogrel) 75 Mg Tablet, 1 TAB ORAL DAILY 02/12/19 Tramadol HCl (Tramadol HCl) 50 Mg Tablet, 1 TAB ORAL Q6 PRN for PAIN LEVEL 4-6 02/12/19 Arginine Hcl (Arginine Hcl) 1 Gm Powder, 1 GM MC DAILY 02/12/19 Sacubitril/Valsartan (Entresto 49 mg-51 mg Tablet) 1 Each Tablet, 1 TAB ORAL DAILY 02/12/19 Atorvastatin* (Atorvastatin*) 80 Mg Tablet, 1 TAB ORAL QHS 02/12/19 Carvedilol* (Carvedilol*) 25 Mg Tablet, 1 TAB ORAL BID 02/12/19 Spironolactone* (Aldactone*) 25 Mg Tablet, 12.5 MG PO QAM, #60 TAB 02/12/19 Ampicillin Sodium-Sulbactam Sodium (Unasyn*) 3 Gm Soln, 3 GM IVPB Q6, VIAL 02/12/19 Medications Current Medications Ondansetron HCl (Zofran Inj) 4 mg Q6H PRN IV NAUSEA AND/OR VOMITING; Start 02/12/19 at 07:30 Ipratropium [place] (Atrovent Hfa) 2 puff Q2H RESP THERAPY PRN INH SHORTNESS OF BREATH; Start 02/12/19 at 07:30 Acetaminophen (Tylenol Liquid) 650 mg Q6H PRN PO PAIN LEVEL 1-3 OR FEVER Last administered on 02/26/19at 20:31; Admin Dose 650 MG; Start 02/12/19 at 07:30 Acetaminophen (Tylenol Supp) 650 mg Q4H PRN [place] PAIN LEVEL 1-3 OR FEVER Last administered on 02/25/19 22:32; Admin Dose 650 MG; Start 02/12/19 at 07:30 Aspirin (Aspirin) 81 mg DAILY PO Last administered on 02/27/19 11:25; Admin Dose 81 MG; Start 02/12/19 at 09:00 Clopidogrel Bisulfate (plaVIX) 75 mg DAILY NGT Last administered on 02/27/19 11:24; Admin Dose 75 MG; Start 02/12/19 at 09:00 Atorvastatin Calcium (Lipitor) 80 mg QHS NGT Last administered on 02/24/19at 21:07; Admin Dose 80 MG; Start 02/12/19 at 21:00 Miscellaneous Information 1 ea NOTE XX ; Start 02/12/19 at 09:30 Glucose (Glutose) 15 gm Q15M PRN PO DECREASED GLUCOSE; Start 02/12/19 at 09:30 Glucose (Glutose) 22.5 gm Q15M PRN PO DECREASED GLUCOSE; Start 02/12/19 at 09:30 Dextrose (D50w Syringe) 25 ml Q15M PRN IV DECREASED GLUCOSE Last administered on 02/25/19at 16:03; Admin Dose 25 ML; Start 02/12/19 at 09:30 Dextrose (D50w Syringe) 50 ml Q15M PRN IV DECREASED GLUCOSE Last administered o n 02/25/19at 19:58; Admin Dose 50 ML; Start 02/12/19 at 09:30 Glucagon (Glucagen) 1 mg Q15M PRN IM DECREASED GLUCOSE; Start 02/12/19 at 09:30 Glucose (Glutose) 15 gm Q15M PRN BUCCAL DECREASED GLUCOSE; Start 02/12/19 at 09:30 Insulin Aspart (Novolog Insulin Pen) NOVOLOG *MODERATE* ALGORI... Q4 SC Last administered on 02/27/19 12:11; Admin Dose 2 UNIT; Start 02/12/19 at 23:07 Sodium Hypochlorite (Dakins Diluted ()) 1 applic DAILY TP Last administered on 02/27/19 08:26; Admin Dose 1 APPLIC; Start 02/15/19 at 09:00 Senna (Senokot) 2 tab BID NGT Last administered on 02/24/19 21:07; Admin Dose 2 TAB; Start 02/15/19 at 21:00 Polyethylene Glycol (Miralax) 17 gm DAILY NGT Last administered on 02/18/19 08:45; Admin Dose 17 GM; Start 02/16/19 at 09:00 Docusate Sodium (Colace Liquid Cup) 200 mg BID NGT Last administered on 02/24/19 21:07; Admin Dose 200 MG; Start 02/17/19 at 09:00 Bisacodyl (Dulcolax Supp) 5 mg DAILY PRN [place] CONSTIPATION; Start 02/17/19 at 10:00 Vancomycin HCl (Vanco Iv Per Pharmacy) VANCOMYCIN PER PHARMACY PER PROTOCOL XX ; Start 02/17/19 at 09:30 Insulin Glargine (Lantus) 36 units BID SC Last administered on 02/24/19 21:09; Admin Dose 36 UNITS; Start 02/19/19 at 21:00; Status Hold Albuterol/ Ipratropium (Duoneb) 3 ml Q2H RESP THERAPY PRN HHN SHORTNESS OF [place] ATH Last administered on 02/26/19 12:13; Admin Dose 3 ML; Start 02/19/19 at 19:00 Famotidine (Pepcid Iv) 20 mg DAILY IV Last administered on 02/27/19 11:18; Admin Dose 20 MG; Start 02/20/19 at 09:00 Midazolam HCl 50 ml @ 1 mls/hr TITRATE IV ; Start 02/19/19 at 21:00 Nystatin (Nystatin Oint) 1 applic BID TOP Last administered on 02/27/19 08:28; Admin Dose 1 APPLIC; Start 02/21/19 at 09:00 Piperacillin Sod/ Tazobactam Sod 3.375 gm/Dextrose 100 ml @ 200 mls/hr Q6 IVPB Last administered on 02/27/19 11:35; Admin Dose 200 MLS/HR; Start 02/21/19 at 12:00 Carvedilol (Coreg) 6.25 mg BID PO Last administered on 02/27/19 11:24; Admin Dose 6.25 MG; Start 02/22/19 at 09:00 Diphenhydramine HCl (Benadryl) 25 mg Q6H PRN PO ITCHING Last administered on 02/26/19 19:55; Admin Dose 25 MG; Start 02/23/19 at 11:00 Vancomycin HCl 250 ml @ 125 mls/hr Q36H IVPB Last administered on 02/26/19 04:29; Admin Dose 125 MLS/HR; Start 02/24/19 at 16:00 Fentanyl 100 ml @ 2.5 mls/hr TITRATE IV Last administered on 02/24/19 10:52; Admin Dose 2.5 MLS/HR; Start 02/24/19 at 09:30 Collagenase (Santyl) 1 applic BID TOP Last administered on 02/27/19 08:27; Admin Dose 1 APPLIC; Start 02/24/19 at 10:30 Zinc Sulfate (Zinc Sulfate) 220 mg DAILY PO Last administered on 02/27/19 11:24; Admin Dose 220 MG; Start 02/26/19 at 12:00 Multivitamins Therapeutic (Theragran) 1 tab DAILY PO Last administered on 11:24; Admin Dose 1 TAB; Start 02/26/19 at 12:00 Miscellaneous Information (*Rx Drug Level Order Reminder*) VANCOMYCIN TROUGH AT 1500 1500 ONCE XX ; Start 02/27/19 at 15:00; Stop 02/27/19 at 15:01 Lisinopril (Zestril) 5 mg DAILY PO Last administered on 02/27/19 11:24; Admin Dose 5 MG; Start 02/26/19 at 17:30 Spironolactone (Aldactone) 25 mg DAILY PO Last administered on 02/27/19 11:24; Admin Dose 25 MG; Start 02/26/19 at 17:30 Labetalol HCl (Labetalol) 10 mg Q6 PRN IV ELEVATED BLOOD PRESSURE Last administered on 7/23/19at 11:18; Admin Dose 10 MG; Start 02/27/19 at 01:30 Assessment/Plan Hospital Course (Demo Recall) Acute hypoxemic respiratory failure status post intubation now extubated 02/25/19 Congestive heart failure: Acute on chronic secondary systolic heart failure Sepsis Coronary artery disease with history of [place] History of ischemic cardiomyopathy ejection fraction of 35% History of multiple PCI Severe peripheral vascular disease status post left leg amputation as well as right leg severe PAD Hypertension diabetes dyslipidemia Hyponatremia Acute kidney injury; improved now Recommendations: Continue with aspirin and Plavix Start IV Lasix diabetic control as per internal medicine We will cont carvedilol and inc as needed/tolerated Antibiotic management as per internal medicine ID recommendations DVT prophylaxis GI prophylaxis as per internal medicine aldactone INC lisinopril Thank you for his referral. We will continue to follow along with you YOGI NICOLAS MD [facility] YOGI NICOLAS MD Feb 27, 2019 12:49
[2019-02-27] MEDS: FUROSEMIDE 40 MG INJ IV SCH (13:18)
[2019-02-27] MEDS: VANCOMYCIN 1 GM 250 ML IVPB SCH (16:18)
[2019-02-27] MEDS: ATORVASTATIN 80 MG TAB NGT SCH (21:14)
[2019-02-28] VITALS (35 sets, daily range): BP systolic 104–191; BP diastolic 43–130; PULSE 75–101; RESP 16–31
[2019-02-28] MEDS: INSULIN ASPART [NOVOLOG] 3 ML PEN SC SCH ×6 (00:32→20:42)
[2019-02-28] MEDS: LABETALOL HCL 20MG INJ IV PRN (00:33)
[2019-02-28] MEDS: hydrALAzine 20 MG INJ IV PRN ×2 (03:43→09:23)
[2019-02-28] MEDS: PIPERACILLIN/TAZO 3.375 GM in DEXTROSE 5% 100 ML IVPB SCH ×3 (05:49→17:24)
[2019-02-28] MEDS ORDERED: POTASSIUM CHLORIDE (SR) 20 MEQ TAB PO STA (07:47)
--- NOTE | 2019-02-28 07:47 | CONS ---
Consult Date/Type/Reason Admit Date/Time Feb 12, 2019 at 04:44 Initial Consult Date 02/20/19 Type of Consultation: cv Requesting Provider: PATSY JONES Date/Time of Note DATE: 02/28/19 TIME: 07:45 Subjective Cardiology follow-up progress note Subjective: Case discussed with staff and telemetry was reviewed. Patient has remained in normal sinus rhythm Patient has remained confused today and is unable to provide reliable history to me Patient with increasing shortness of breath and hypoxemia is a high flow oxygen now Patient is extubated 02/25/19 blood pressure has remained stable /high now There is no report of any chest pain or pressure Objective: General: Obese female status post intubation on the ventilator HEENT: NC/AT. pupils are equal. round. NECK: Unable to assess for JVD. no stridor. CV: RRR. systolic murmur; no gallop or rubs. PULM: no wheezing + diffuse rhonchi. 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 Right leg wound noted neuro: Awake appears to be oriented x1 only Psych: calm rectal: deferred : Deferred Echocardiogram was personally reviewed which shows: Normal left ventricular cavity size. Mild concentric left ventricular hypertrophy. Moderate left ventricular systolic dysfunction. Ejection fraction is visually estimated at 35 %. Tissue Doppler/Mitral Doppler indices are consistent with impaired relaxation (Stage I diastolic dysfunction). Multiple segmental wall motion abnormalities. Mitral valve leaflets appear mildly thickened. Mild mitral annular calcification. Trace mitral regurgitation. Normal appearance and function of the tricuspid valve with trace physiologic regurgitation. Normal right ventricular systolic pressure. suboptimal study. Chest x-ray done 02/19/2019 shows: There is mild atelectasis at the lung bases, unchanged. Mild pulmonary edema is unchanged. The heart size is normal. There are small bilateral pleural effusions. There is no pneumothorax. cxr 02/22 reviewed 1. Interval decreased central pulmonary vascular congestion. 2. Stable cardiomegaly with aortic atherosclerosis. 3. Stable position of support devices. Objective Vitals Vital Signs Date Temp Pulse Resp B/P (MAP) Pulse Ox O2 O2 Flow FiO2 Time Delivery Rate 02/28/19 79 20 96 Nasal 30 04:23 Cannula 02/27/19 111/51 18:00 (71) 02/27/19 98.3 16:00 02/27/19 2.0 02:00 Intake and Output 02/27/19 02/27/19 02/28/19 1515:00 23:00 07:00 IntakeIntake Total 100 ml 350 ml OutputOutput Total 650 ml 250 ml BalanceBalance -550 ml 100 ml Results/Medications Result Diagram: 02/28/19 0426 02/28/19 0435 Results 24 hrs Laboratory Tests Test 02/27/19 08:26 02/27/19 12:09 02/27/19 14:55 02/27/19 16:25 Bedside Glucose 158 172 162 Vancomycin Level 14.7 Trough Test 02/27/19 21:06 02/27/19 22:00 02/28/19 00:29 02/28/19 04:26 Bedside Glucose 144 163 Blood Gas Blood arterial Specimen Source Arterial Blood 02/27/2019 1:08:0 Date Drawn 0 PM Arterial Blood pH 7.410 (Temp corrected) Arterial Blood 38.5 pCO2 (Temp correct) Arterial Blood 92.7 H pO2 (Temp corrected) Arterial Blood 23.9 HCO3 Arterial Blood -0.6 Base Excess Arterial Blood 97.0 Oxygen Saturation Dawson Test N/A Arterial Blood LB Gas Puncture Site Arterial 0.2 Blood Carboxyhemo globin Arterial Blood 0 Methemoglobin Blood Gas A-a O2 76.0 H Differential Oxyhemoglobin 96.8 Percent Blood Gas 37.0 Temperature Blood Gas HFNC Modality FiO2 30.0 Blood Gas TM Notified Whom Blood Gas 02/27/2019 1:17:0 Notified Time 0 PM White Blood Count 10.8 # Red Blood Count 4.38 Hemoglobin 12.6 Hematocrit 40.5 Mean Corpuscular 92.5 Volume Mean Corpuscular 28.8 L Hemoglobin Mean Corpuscular 31.1 L Hemoglobin Concen t Red Cell 12.7 Distribution Width Platelet Count 466 H Mean Platelet 10.2 Volume Immature 0.500 H Granulocytes % Neutrophils % 80.2 H Lymphocytes % 8.3 L Monocytes % 6.3 Eosinophils % 3.8 Basophils % 0.9 Nucleated Red 0.0 Blood Cells % Immature 0.050 H Granulocytes # Neutrophils # 8.7 H Lymphocytes # 0.9 Monocytes # 0.7 Eosinophils # 0.4 Basophils # 0.1 Nucleated Red 0.0 Blood Cells # Test 02/28/19 04:35 02/28/19 04:41 02/28/19 05:47 Sodium Level 144 Potassium Level 3.6 Chloride Level 107 Carbon Dioxide 29 Level Anion Gap 8 Blood Urea 20 Nitrogen Creatinine 1.23 H Est Glomerular Filtrat Rate mL/min Glucose Level 211 Calcium Level 9.2 Magnesium Level 1.9 Bedside Glucose 198 Home Meds Reported Medications Insulin Glargine,Hum.rec.anlog (Basaglar Kwikpen U-100) 100 Unit/1 Ml Insuln.pen, 0-12 UNIT SC QHS for PER SLIDING SCALE, EA 02/12/19 Insulin Aspart* (Novolog Insulin Pen*) 100 Unit/Ml Soln, 0-12 SC .SLIDING SCALE AC, EA 02/12/19 Dulaglutide (Trulicity) 1.5 Mg/0.5 Ml Pen.injctr, 1.5 MG SQ WEEKLY 02/12/19 Aspirin* (Aspirin* Chew) 81 Mg Tab.chew, 81 MG PO DAILY, TAB.CHEW 02/12/19 Clopidogrel Bisulfate (Clopidogrel) 75 Mg Tablet, 1 TAB ORAL DAILY 02/12/19 Tramadol HCl (Tramadol HCl) 50 Mg Tablet, 1 TAB ORAL Q6 PRN for PAIN LEVEL 4-6 02/12/19 Arginine Hcl (Arginine Hcl) 1 Gm Powder, 1 GM MC DAILY 02/12/19 Sacubitril/Valsartan (Entresto 49 mg-51 mg Tablet) 1 Each Tablet, 1 TAB ORAL DAILY 02/12/19 Atorvastatin* (Atorvastatin*) 80 Mg Tablet, 1 TAB ORAL QHS 02/12/19 Carvedilol* (Carvedilol*) 25 Mg Tablet, 1 TAB ORAL BID 02/12/19 Spironolactone* (Aldactone*) 25 Mg Tablet, 12.5 MG PO QAM, #60 TAB 02/12/19 Ampicillin Sodium-Sulbactam Sodium (Unasyn*) 3 Gm Soln, 3 GM IVPB Q6, VIAL 02/12/19 Medications Current Medications Ondansetron HCl (Zofran Inj) 4 mg Q6H PRN IV NAUSEA AND/OR VOMITING; Start 02/12/19 at 07:30 Ipratropium [place] (Atrovent Hfa) 2 puff Q2H RESP THERAPY PRN INH SHORTNESS OF BREATH; Start 02/12/19 at 07:30 Acetaminophen (Tylenol Liquid) 650 mg Q6H PRN PO PAIN LEVEL 1-3 OR FEVER Last administered on 02/26/19at 20:31; Admin Dose 650 MG; Start 02/12/19 at 07:30 Acetaminophen (Tylenol Supp) 650 mg Q4H PRN [place] PAIN LEVEL 1-3 OR FEVER Last administered on 02/25/19at 22:32; Admin Dose 650 MG; Start 02/12/19 at 07:30 Aspirin (Aspirin) 81 mg DAILY PO Last administered on 02/27/19at 11:25; Admin Dose 81 MG; Start 02/12/19 at 09:00 Miscellaneous Information 1 ea NOTE XX ; Start 02/12/19 at 09:30 Glucose (Glutose) 15 gm Q15M PRN PO DECREASED GLUCOSE; Start 02/12/19 at 09:30 Glucose (Glutose) 22.5 gm Q15M PRN PO DECREASED GLUCOSE; Start 02/12/19 at 09:30 Dextrose (D50w Syringe) 25 ml Q15M PRN IV DECREASED GLUCOSE Last administered on 02/25/19at 16:03; Admin Dose 25 ML; Start 02/12/19 at 09:30 Dextrose (D50w Syringe) 50 ml Q15M PRN IV DECREASED GLUCOSE Last administered on 02/25/19at 19:58; Admin Dose 50 ML; Start 02/12/19 at 09:30 Glucagon (Glucagen) 1 mg Q15M PRN IM DECREASED GLUCOSE; Start 02/12/19 at 09:30 Glucose (Glutose) 15 gm Q15M PRN BUCCAL DECREASED GLUCOSE; Start 02/12/19 at 09:30 Insulin Aspart (Novolog Insulin Pen) NOVOLOG *MODERATE* ALGORI... Q4 SC Last administered on 02/28/19at 05:51; Admin Dose 4 UNIT; Start 02/12/19 at 23:07 Sodium Hypochlorite (Dakins Diluted ()) 1 applic DAILY TP Last administered on 02/27/19at 08:26; Admin Dose 1 APPLIC; Start 02/15/19 at 09:00 Docusate Sodium (Colace Liquid Cup) 200 mg BID NGT Last administered on 02/24/19at 21:07; Admin Dose 200 MG; Start 02/17/19 at 09:00 Bisacodyl (Dulcolax Supp) 5 mg DAILY PRN [place] CONSTIPATION; Start 02/17/19 at 10:00 Vancomycin HCl (Vanco Iv Per Pharmacy) VANCOMYCIN PER PHARMACY PER PROTOCOL XX ; Start 02/17/19 at 09:30 Albuterol/ Ipratropium (Duoneb) 3 ml Q2H RESP THERAPY PRN HHN SHORTNESS OF BREATH Last administered on 02/26/19 12:13; Admin Dose 3 ML; Start 02/19/19 at 19:00 Famotidine (Pepcid Iv) 20 mg DAILY IV Last administered on 02/27/19 11:18; Admin Dose 20 MG; Start 02/20/19 at 09:00 Nystatin (Nystatin Oint) 1 applic BID TOP Last administered on 02/27/19 21:15; Admin Dose 1 APPLIC; Start 02/21/19 at 09:00 Piperacillin Sod/ Tazobactam Sod 3.375 gm/Dextrose 100 ml @ 200 mls/hr Q6 IVPB Last administered on 02/28/19 05:49; Admin Dose 200 MLS/HR; Start 02/21/19 at 12:00 Diphenhydramine HCl (Benadryl) 25 mg Q6H PRN PO ITCHING Last administered on 02/26/19 19:55; Admin Dose 25 MG; Start 02/23/19 at 11:00 Vancomycin HCl 250 ml @ 125 mls/hr Q36H IVPB Last administered on 02/27/19 16:18; Admin Dose 125 MLS/HR; Start 02/24/19 at 16:00 Collagenase (Santyl) 1 applic BID TOP Last administered on 02/27/19 21:15; Admin Dose 1 APPLIC; Start 02/24/19 at 10:30 Zinc Sulfate (Zinc Sulfate) 220 mg DAILY PO Last administered on 02/27/19 11:2 4; Admin Dose 220 MG; Start 02/26/19 at 12:00 Multivitamins Therapeutic (Theragran) 1 tab DAILY PO Last administered on 02/27/19 11:24; Admin Dose 1 TAB; Start 02/26/19 at 12:00 Spironolactone (Aldactone) 25 mg DAILY PO Last administered on 02/27/19 11:24; Admin Dose 25 MG; Start 02/26/19 at 17:30 Labetalol HCl (Labetalol) 10 mg Q6 PRN IV ELEVATED BLOOD PRESSURE Last administered on 02/28/19at 00:33; Admin Dose 10 MG; Start 02/27/19 at 01:30 Furosemide (Lasix) 40 mg DAILY IV Last administered on 02/27/19at 13:18; Admin Dose 40 MG; Start 02/27/19 at 13:00 Carvedilol (Coreg) 6.25 mg TID PO Last administered on 02/27/19at 21:25; Admin Dose 6.25 MG; Start 02/27/19 at 13:00 Lisinopril (Zestril) 5 mg BID PO Last administered on 02/27/19at 21:15; Admin Dose 5 MG; Start 02/27/19 at 21:00 Atorvastatin Calcium (Lipitor) 80 mg QHS PO ; Start 02/28/19 at 21:00 Clopidogrel Bisulfate (plaVIX) 75 mg DAILY PO ; Start 02/28/19 at 09:00 Insulin Glargine (Lantus) 18 units BID SC ; Start 02/28/19 at 09:00 Polyethylene Glycol (Miralax) 17 gm DAILY PO ; Start 02/28/19 at 09:00 Senna (Senokot) 2 tab BID PO ; Start 02/28/19 at 09:00 Nicotine (Nicoderm 21 Mg/ 24hr) 1 patch DAILY TRANSDERM ; Start 02/28/19 at 09:00 Hydralazine HCl (Apresoline) 10 mg Q4H PRN IV ELEVATED BLOOD PRESSURE Last administered on 02/28/19at 03:43; Admin Dose 10 MG; Start 02/28/19 at 03:30 Assessment/Plan Hospital Course (Demo Recall) Acute hypoxemic respiratory failure status post intubation now extubated 02/25/19 Congestive heart failure: Acute on chronic secondary systolic heart failure Sepsis Coronary artery disease with history of [place] History of ischemic cardiomyopathy ejection fraction of 35% History of multiple PCI Severe peripheral vascular disease status post left leg amputation as well as right leg severe PAD Hypertension diabetes dyslipidemia Hyponatremia Acute kidney injury; improved now Recommendations: Continue with aspirin and Plavix Continue with IV Lasix. In addition, I will also give a dose of Bumex drip today because of worsening respiratory failure diabetic control as per internal medicine We will cont carvedilol and inc as needed/tolerated Antibiotic management as per internal medicine ID recommendations DVT prophylaxis GI prophylaxis as per internal medicine aldactone cont lisinopril replace electrolyte including potassium magnesium as needed Thank you for his referral. We will continue to follow along with you YOGI NICOLAS MD [facility] YOGI NICOLAS MD Feb 28, 2019 07:47
[2019-02-28] MEDS ORDERED: MAGNESIUM SULFATE 2 GM/50 ML 50 ML IVPB ONE (08:00)
--- NOTE | 2019-02-28 08:34 | CONS ---
Assessment/Plan Assessment/Plan Assessment/Plan (Daily) Assessment and recommendations; 1. Patient admitted with CHF exacerbation status post extubation with episode of reintubation and now extubated for the last 4 days with markedly improved overall clinical status. 2. History of diabetes and hypertension. 3. Right lower extremity wound growing multiple organisms. Patient currently on appropriate antimicrobial regimen. 4. History of CAD with prior coronary stenting. 5. Severe peripheral vascular disease. 6. Possibly some element of ICU psychosis. Clinically improving though. 7. Acute renal insufficiency with stable serum creatinine. 8. Interval resolution of hypernatremia. Continue current supportive care. Consultation Date/Type/Reason Admit Date/Time Feb 12, 2019 at 04:44 Initial Consult Date 02/13/19 Type of Consult Pulmonary/critical care Patient is a 73-year-old lady who was admitted to the hospital with complaints of shortness of breath. Patient was in respiratory failure and had to be intubated and then transferred to ICU. By the time I saw her, patient is orally intubated and sedated with propofol drip. Patient did not appear to be in any distress whatsoever. Per medical records, no CPR was done. Past medical history; 1. 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 2. Diabetes. 3. Peripheral vascular disease. With multiple right lower extremity surgeries as well. 4. CHF. 5. Chronic steroid use. Diagnosis is unclear. Medications; reviewed. Allergies; as outlined above. Family history, occupational history, social history are not available. Review of system; unable to be obtained. General exam; elderly female, orally intubated, sedated, currently in no distress. Requesting Provider: PATSY JONES Date/Time of Note DATE: 02/28/19 TIME: 08:32 24 HR Interval Summary Free Text/Dictation Patient's condition is significantly improved. Patient is off BiPAP and doing very well on high flow nasal cannula at 30% FiO2 and 20 L/min. General exam; elderly female, awake alert, currently in no distress. Exam/Review of Systems Exam Vitals Vital Signs Date Temp Pulse Resp B/P (MAP) Pulse Ox O2 O2 Flow FiO2 Time Delivery Rate 02/28/19 86 22 151/130 96 High Flow 07:00 (137) 02/28/19 30 04:23 02/28/19 98.5 04:00 02/27/19 2.0 02:00 Intake and Output 02/27/19 02/27/19 02/28/19 1515:00 23:00 07:00 IntakeIntake Total 100 ml 440 ml 220 ml OutputOutput Total 650 ml 675 ml 750 ml BalanceBalance -550 ml -235 ml -530 ml Exam H EENT exam; supple neck, positive JVD. No lymphadenopathy. Midline trachea. No thyromegaly. Patient has few remaining carious teeth. Chest exam; diminished but clear breath sounds. S1-S2 audible, no murmurs. Regular rhythm. Abdomen exam; soft, protuberant. Nontender. No organomegaly. Bowel sounds audible. Extremity exam; no peripheral edema. Left leg is amputated at hip. Multiple scars are present in right lower extremity. PUBLIC WELFARE DIRECTOR exam; no focal deficit. Patient though exhibiting occasional confusion. Results Result Diagram: 02/28/19 0426 02/28/19 0435 Results 24hrs Laboratory Tests Test 02/27/19 12:09 02/27/19 14:55 02/27/19 16:25 02/27/19 21:06 Bedside Glucose 172 162 144 Vancomycin Level 14.7 Trough Test 02/27/19 22:00 02/28/19 00:29 02/28/19 04:26 02/28/19 04:35 Blood Gas Blood arterial Specimen Source Arterial Blood 02/27/2019 1:08:0 Date Drawn 0 PM Arterial Blood pH 7.410 (Temp corrected) Arterial Blood 38.5 pCO2 (Temp correct) Arterial Blood 92.7 H pO2 (Temp corrected) Arterial Blood 23.9 HCO3 Arterial Blood -0.6 Base Excess Arterial Blood 97.0 Oxygen Saturation Dawson Test N/A Arterial Blood LB Gas Puncture Site Arterial 0.2 Blood Carboxyhemo globin Arterial Blood 0 Methemoglobin Blood Gas A-a O2 76.0 H Differential Oxyhemoglobin 96.8 Percent Blood Gas 37.0 Temperature Blood Gas HFNC Modality FiO2 30.0 Blood Gas TM Notified Whom Blood Gas 02/27/2019 1:17:0 Notified Time 0 PM Bedside Glucose 163 White Blood Count 10.8 # Red Blood Count 4.38 Hemoglobin 12.6 Hematocrit 40.5 Mean Corpuscular 92.5 Volume Mean Corpuscular 28.8 L Hemoglobin Mean Corpuscular 31.1 L Hemoglobin Concen t Red Cell 12.7 Distribution Width Platelet Count 466 H Mean Platelet 10.2 Volume Immature 0.500 H Granulocytes % Neutrophils % 80.2 H Lymphocytes % 8.3 L Monocytes % 6.3 Eosinophils % 3.8 Basophils % 0.9 Nucleated Red 0.0 Blood Cells % Immature 0.050 H Granulocytes # Neutrophils # 8.7 H Lymphocytes # 0.9 Monocytes # 0.7 Eosinophils # 0.4 Basophils # 0.1 Nucleated Red 0.0 Blood Cells # Sodium Level 144 Potassium Level 3.6 Chloride Level 107 Carbon Dioxide 29 Level Anion Gap 8 Blood Urea 20 Nitrogen Creatinine 1.23 H Est Glomerular Filtrat Rate mL/min Glucose Level 211 Calcium Level 9.2 Test 02/28/19 04:41 02/28/19 05:47 Magnesium Level 1.9 Bedside Glucose 198 Medications Medication Current Medications Ondansetron HCl (Zofran Inj) 4 mg Q6H PRN IV NAUSEA AND/OR VOMITING; Start 02/12/19 at 07:30 Ipratropium [place] (Atrovent Hfa) 2 puff Q2H RESP THERAPY PRN INH SHORTNESS OF BREATH; Start 02/12/19 at 07:30 Acetaminophen (Tylenol Liquid) 650 mg Q6H PRN PO PAIN LEVEL 1-3 OR FEVER Last administered on 02/26/19at 20:31; Admin Dose 650 MG; Start 02/12/19 at 07:30 Acetaminophen (Tylenol Supp) 650 mg Q4H PRN [place] PAIN LEVEL 1-3 OR FEVER Last administered on 02/25/19at 22:32; Admin Dose 650 MG; Start 02/12/19 at 07:30 Aspirin (Aspirin) 81 mg DAILY PO Last administered on 02/27/19at 11:25; Admin Dose 81 MG; Start 02/12/19 at 09:00 Miscellaneous Information 1 ea NOTE XX ; Start 02/12/19 at 09:30 Glucose (Glutose) 15 gm Q15M PRN PO DECREASED GLUCOSE; Start 02/12/19 at 09:30 Glucose (Glutose) 22.5 gm Q15M PRN PO DECREASED GLUCOSE; Start 02/12/19 at 09:30 Dextrose (D50w Syringe) 25 ml Q15M PRN IV DECREASED GLUCOSE Last administered on 02/25/19at 16:03; Admin Dose 25 ML; Start 02/12/19 at 09:30 Dextrose (D50w Syringe) 50 ml Q15M PRN IV DECREASED GLUCOSE Last administered on 02/25/19at 19:58; Admin Dose 50 ML; Start 02/12/19 at 09:30 Glucagon (Glucagen) 1 mg Q15M PRN IM DECREASED GLUCOSE; Start 02/12/19 at 09:30 Glucose (Glutose) 15 gm Q15M PRN BUCCAL DECREASED GLUCOSE; Start 02/12/19 at 09:30 Insulin Aspart (Novolog Insulin Pen) NOVOLOG *MODERATE* ALGORI... Q4 SC Last administered on 02/28/19 05:51; Admin Dose 4 UNIT; Start 02/12/19 at 23:07 Sodium Hypochlorite (Dakins Diluted ()) 1 applic DAILY TP Last administered on 02/27/19at 08:26; Admin Dose 1 APPLIC; Start 02/15/19 at 09:00 Docusate Sodium (Colace Liquid Cup) 200 mg BID NGT Last administered on 02/24/19at 21:07; Admin Dose 200 MG; Start 02/17/19 at 09:00 Bisacodyl (Dulcolax Supp) 5 mg DAILY PRN [place] CONSTIPATION; Start 02/17/19 at 1 0:00 Vancomycin HCl (Vanco Iv Per Pharmacy) VANCOMYCIN PER PHARMACY PER PROTOCOL XX ; Start 02/17/19 at 09:30 Albuterol/ Ipratropium (Duoneb) 3 ml Q2H RESP THERAPY PRN HHN SHORTNESS OF BREATH Last administered on 02/26/19at 12:13; Admin Dose 3 ML; Start 02/19/19 at 19:00 Famotidine (Pepcid Iv) 20 mg DAILY IV Last administered on 02/27/19at 11:18; Admin Dose 20 MG; Start 02/20/19 at 09:00 Nystatin (Nystatin Oint) 1 applic BID TOP Last administered on 02/27/19at 21:15; Admin Dose 1 APPLIC; Start 02/21/19 at 09:00 Piperacillin Sod/ Tazobactam Sod 3.375 gm/Dextrose 100 ml @ 200 mls/hr Q6 IVPB Last administered on 02/28/19 05:49; Admin Dose 200 MLS/HR; Start 02/21/19 at 12:00 Diphenhydramine HCl (Benadryl) 25 mg Q6H PRN PO ITCHING Last administered on 02/26/19 19:55; Admin Dose 25 MG; Start 02/23/19 at 11:00 Vancomycin HCl 250 ml @ 125 mls/hr Q36H IVPB Last administered on 02/27/19 16 :18; Admin Dose 125 MLS/HR; Start 02/24/19 at 16:00 Collagenase (Santyl) 1 applic BID TOP Last administered on 02/27/19 21:15; Admin Dose 1 APPLIC; Start 02/24/19 at 10:30 Zinc Sulfate (Zinc Sulfate) 220 mg DAILY PO Last administered on 02/27/19 11:24; Admin Dose 220 MG; Start 02/26/19 at 12:00 Multivitamins Therapeutic (Theragran) 1 tab DAILY PO Last administered on 02/27/19 11:24; Admin Dose 1 TAB; Start 02/26/19 at 12:00 Spironolactone (Aldactone) 25 mg DAILY PO Last administered on 02/27/19 11:24; Admin Dose 25 MG; Start 02/26/19 at 17:30 Labetalol HCl (Labetalol) 10 mg Q6 PRN IV ELEVATED BLOOD PRESSURE Last administered on 02/28/19 00:33; Admin Dose 10 MG; Start 02/27/19 at 01:30 Furosemide (Lasix) 40 mg DAILY IV Last administered on 02/27/19 13:18; Admin Dose 40 MG; Start 02/27/19 at 13:00 Carvedilol (Coreg) 6.25 mg TID PO Last administered on 02/27/19 21:25; Admin Dose 6.25 MG; Start 02/27/19 at 13:00 Lisinopril (Zestril) 5 mg BID PO Last administered on 02/27/19 21:15; Admin Dose 5 MG; Start 02/27/19 at 21:00 Atorvastatin Calcium (Lipitor) 80 mg QHS PO ; Start 02/28/19 at 21:00 Clopidogrel Bisulfate (plaVIX) 75 mg DAILY PO ; Start 02/28/19 at 09:00 Insulin Glargine (Lantus) 18 units BID SC ; Start 02/28/19 at 09:00 Polyethylene Glycol (Miralax) 17 gm DAILY PO ; Start 02/28/19 at 09:00 Senna (Senokot) 2 tab BID PO ; Start 02/28/19 at 09:00 Nicotine (Nicoderm 21 Mg/ 24hr) 1 patch DAILY TRANSDERM ; Start 02/28/19 at 09:00 Hydralazine HCl (Apresoline) 10 mg Q4H PRN IV ELEVATED BLOOD PRESSURE Last administered on 02/28/19at 03:43; Admin Dose 10 MG; Start 02/28/19 at 03:30 Magnesium Sulfate 50 ml @ 25 mls/hr ONCE ONCE IVPB ; Start 02/28/19 at 08:00; Stop 02/28/19 at 09:59 Potassium Chloride (Klor-Con 20) 40 meq ONCE PO ; Start 02/28/19 at 14:00; Stop 02/28/19 at 14:01 Bumetanide 6 mg/ Dextrose 60 ml @ 10 mls/hr Q6H ONCE IV ; Start 02/28/19 at 09:00; Stop 02/28/19 at 14:59 SANTHOSH GABRIEL Feb 28, 2019 08:34
[2019-02-28] MEDS ORDERED: SENNA TAB PO SCH (09:00)
[2019-02-28] MEDS ORDERED: LOPERAMIDE 2 MG CAP PO PRN (09:00)
[2019-02-28] MEDS ORDERED: BUMETANIDE 6 MG in DEXTROSE 5% 36 ML IV ONE (09:00)
[2019-02-28] MEDS ORDERED: POLYETHYLENE GLYCOL 17 GM PACKET PO SCH (09:00)
--- NOTE | 2019-02-28 09:02 | PN ---
Date/Time of Note Date/Time of Note DATE: 02/28/19 TIME: 09:00 Assessment/Plan VTE Prophylaxis Risk score (from Nsg)>0 risk: 12 SCD applied (from Nsg): No SCD contraindicated: other (pad) Pharmacological prophylaxis: NA/contraindicated Pharm contraindication: anticoag not tolerated Lines/Catheters IV Catheter Type (from Nrsg): PICC Line Central line still needed: Yes Urinary Cath still in place: Yes Reason Cath still needed: other (indicate) (not needed) Assessment/Plan Assessment/Plan 73 yo morbidly obese woman history of peripheral vascular disease, diabetes type II, CHF, likely COPD presents with acute respiratory failure due to CHF exacerbation. #Sepsis-slowly improving, wound culture positive for MRSA, Klebsiella, enterococcus, yeast. Of note patient developed fever to 102 on 02/17, but no fevers for the last 5 days. Wound culture positive for polymicrobial growth. -For now continue empiric vanco and zosyn -Continue wound care as needed for the right toe ulcer #Acute respiratory failure- - CTPA negative for PE - Likely CHF exacerbation. Echocardiogram performed 5 days ago, shows ejection fraction 35% - Extubated 02/25 - High flow oxygen per pulmonary recommendations. #Peripheral vascular disease - Cont aspirin, plavix, statin #Diabetic/vascular right foot ulcer- Patient also has outpatient vascular followup- Patient has failed R sided revascularization in the past; per Vascular Dr Naidu repeat attempt at revascularization would be unwise. Wound swab was d one which is positive for bacterial growth polymicrobial - Continue supportive treatment with local wound care and antibiotics for now, no debridement planned. #VICTOR M- May have been due to unstable hemodynamics on admission; or contrast load from CTPA-creatinine slightly more elevated at 1.4 today. Patient does have adequate urine output although slightly low per hour. -Monitor BUN/creatinine levels, continue free water per statistical consultant teams #Diabetes type II, insulin dependent. A1c= 9.7, patient did have one episode of hypoglycemia yesterday, given D5 fluids to help counteract that yesterday. -We will hold Lantus this morning, monitor sugars, continue sliding scale insulin #CHF-again echo results noted -Monitor, continue low-dose beta-nabeel per cardiology recommendations -Follow-up further cardiology recommendations, now back on low-dose IV Lasix. # hypernatremia: Resolved -Monitor basic metabolic panel in the a.m. #History of DVT- LE duplex negative for DVT. 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 GI: famotidine DVT: None Critical care time spent in patient care today equals 50 minutes Result Diagram: 02/28/19 0426 02/28/19 0435 Results 24hrs Laboratory Tests Test 02/27/19 12:09 02/27/19 14:55 02/27/19 16:25 02/27/19 21:06 Bedside Glucose 172 162 144 Vancomycin Level 14.7 Trough Test 02/27/19 22:00 02/28/19 00:29 02/28/19 04:26 02/28/19 04:35 Blood Gas Blood arterial Specimen Source Arterial Blood 02/27/2019 1:08:0 Date Drawn 0 PM Arterial Blood pH 7.410 (Temp corrected) Arterial Blood 38.5 pCO2 (Temp correct) Arterial Blood 92.7 H pO2 (Temp corrected) Arterial Blood 23.9 HCO3 Arterial Blood -0.6 Base Excess Arterial Blood 97.0 Oxygen Saturation Dawson Test N/A Arterial Blood LB Gas Puncture Site Arterial 0.2 Blood Carboxyhemo globin Arterial Blood 0 Methemoglobin Blood Gas A-a O2 76.0 H Differential Oxyhemoglobin 96.8 Percent Blood Gas 37.0 Temperature Blood Gas HFNC Modality FiO2 30.0 Blood Gas TM Notified Whom Blood Gas 02/27/2019 1:17:0 Notified Time 0 PM Bedside Glucose 163 White Blood Count 10.8 # Red Blood Count 4.38 Hemoglobin 12.6 Hematocrit 40.5 Mean Corpuscular 92.5 Volume Mean Corpuscular 28.8 L Hemoglobin Mean Corpuscular 31.1 L Hemoglobin Concen t Red Cell 12.7 Distribution Width Platelet Count 466 H Mean Platelet 10.2 Volume Immature 0.500 H Granulocytes % Neutrophils % 80.2 H Lymphocytes % 8.3 L Monocytes % 6.3 Eosinophils % 3.8 Basophils % 0.9 Nucleated Red 0.0 Blood Cells % Immature 0.050 H Granulocytes # Neutrophils # 8.7 H Lymphocytes # 0.9 Monocytes # 0.7 Eosinophils # 0.4 Basophils # 0.1 Nucleated Red 0.0 Blood Cells # Sodium Level 144 Potassium Level 3.6 Chloride Level 107 Carbon Dioxide 29 Level Anion Gap 8 Blood Urea 20 Nitrogen Creatinine 1.23 H Est Glomerular Filtrat Rate mL/min Glucose Level 211 Calcium Level 9.2 Test 02/28/19 04:41 02/28/19 05:47 Magnesium Level 1.9 Bedside Glucose 198 Subjective 24 Hr Interval Summary Free Text/Dictation No acute overnight events. Patient has been on high-flow oxygen for 2 days. This morning pulling out IVs and pulse ox monitor. Still liquid diarrhea from rectal tube. Exam/Review of Systems Exam Vitals Vital Signs Date Temp Pulse Resp B/P (MAP) Pulse Ox O2 O2 Flow FiO2 Time Delivery Rate 02/28/19 86 22 151/130 96 High Flow 07:00 (137) 02/28/19 30 04:23 02/28/19 98.5 04:00 02/27/19 2.0 02:00 Intake and Output 02/27/19 02/27/19 02/28/19 1515:00 23:00 07:00 IntakeIntake Total 100 ml 440 ml 220 ml OutputOutput Total 650 ml 675 ml 750 ml BalanceBalance -550 ml -235 ml -530 ml Exam Gen: Morbidly obese woman lying in bed, awake and alert. HEENT: Opens eyes occasionally Neck: Supple, no lymphadenopathy. Card: Regular rate and rhythm, no murmurs. Pulm: Slightly distant breath sounds bilaterally, no crackles Abd: Soft, nontender, nondistended. Hypoactive bowel sounds. 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 R leg with well healed bypass scar below the knee. Skin: R lower leg erythema has resolved. R foot bandaged Results Results 24hrs Laboratory Tests Test 02/27/19 12:09 02/27/19 14:55 02/27/19 16:25 02/27/19 21:06 Bedside Glucose 172 162 144 Vancomycin Level 14.7 Trough Test 02/27/19 22:00 02/28/19 00:29 02/28/19 04:26 02/28/19 04:35 Blood Gas Blood arterial Specimen Source Arterial Blood 02/27/2019 1:08:0 Date Drawn 0 PM Arterial Blood pH 7.410 (Temp corrected) Arterial Blood 38.5 pCO2 (Temp correct) Arterial Blood 92.7 H pO2 (Temp corrected) Arterial Blood 23.9 HCO3 Arterial Blood -0.6 Base Excess Arterial Blood 97.0 Oxygen Saturation Dawson Test N/A Arterial Blood LB Gas Puncture Site Arterial 0.2 Blood Carboxyhemo globin Arterial Blood 0 Methemoglobin Blood Gas A-a O2 76.0 H Differential Oxyhemoglobin 96.8 Percent Blood Gas 37.0 Temperature Blood Gas HFNC Modality FiO2 30.0 Blood Gas TM Notified Whom Blood Gas 02/27/2019 1:17:0 Notified Time 0 PM Bedside Glucose 163 White Blood Count 10.8 # Red Blood Count 4.38 Hemoglobin 12.6 Hematocrit 40.5 Mean Corpuscular 92.5 Volume Mean Corpuscular 28.8 L Hemoglobin Mean Corpuscular 31.1 L Hemoglobin Concen t Red Cell 12.7 Distribution Width Platelet Count 466 H Mean Platelet 10.2 Volume Immature 0.500 H Granulocytes % Neutrophils % 80.2 H Lymphocytes % 8.3 L Monocytes % 6.3 Eosinophils % 3.8 Basophils % 0.9 Nucleated Red 0.0 Blood Cells % Immature 0.050 H Granulocytes # Neutrophils # 8.7 H Lymphocytes # 0.9 Monocytes # 0.7 Eosinophils # 0.4 Basophils # 0.1 Nucleated Red 0.0 Blood Cells # Sodium Level 144 Potassium Level 3.6 Chloride Level 107 Carbon Dioxide 29 Level Anion Gap 8 Blood Urea 20 Nitrogen Creatinine 1.23 H Est Glomerular Filtrat Rate mL/min Glucose Level 211 Calcium Level 9.2 Test 02/28/19 04:41 02/28/19 05:47 Magnesium Level 1.9 Bedside Glucose 198 Medications Medication Current Medications Ondansetron HCl (Zofran Inj) 4 mg Q6H PRN IV NAUSEA AND/OR VOMITING; Start 02/12/19 at 07:30 Ipratropium [place] (Atrovent Hfa) 2 puff Q2H RESP THERAPY PRN INH SHORTNESS OF BREATH; Start 02/12/19 at 07:30 Acetaminophen (Tylenol Liquid) 650 mg Q6H PRN PO PAIN LEVEL 1-3 OR FEVER Last administered on 02/26/19at 20:31; Admin Dose 650 MG; Start 02/12/19 at 07:30 Acetaminophen (Tylenol Supp) 650 mg Q4H PRN [place] PAIN LEVEL 1-3 OR FEVER Last administered on 02/25/19at 22:32; Admin Dose 650 MG; Start 02/12/19 at 07:30 Aspirin (Aspirin) 81 mg DAILY PO Last administered on 02/27/19at 11:25; Admin Dose 81 MG; Start 02/12/19 at 09:00 Miscellaneous Information 1 ea NOTE XX ; Start 02/12/19 at 09:30 Glucose (Glutose) 15 gm Q15M PRN PO DECREASED GLUCOSE; Start 02/12/19 at 09:30 Glucose (Glutose) 22.5 gm Q15M PRN PO DECREASED GLUCOSE; Start 02/12/19 at 09:30 Dextrose (D50w Syringe) 25 ml Q15M PRN IV DECREASED GLUCOSE Last administered on 02/25/19at 16:03; Admin Dose 25 ML; Start 02/12/19 at 09:30 Dextrose (D50w Syringe) 50 ml Q15M PRN IV DECREASED GLUCOSE Last administered on 02/25/19at 19:58; Admin Dose 50 ML; Start 02/12/19 at 09:30 Glucagon (Glucagen) 1 mg Q15M PRN IM DECREASED GLUCOSE; Start 02/12/19 at 09:30 Glucose (Glutose) 15 gm Q15M PRN BUCCAL DECREASED GLUCOSE; Start 02/12/19 at 09:30 Insulin Aspart (Novolog Insulin Pen) NOVOLOG *MODERATE* ALGORI... Q4 SC Last administered on 02/28/19at 05:51; Admin Dose 4 UNIT; Start 02/12/19 at 23:07 Sodium Hypochlorite (Dakins Diluted (40)) 1 applic DAILY TP Last administered on 02/27/19at 08:26; Admin Dose 1 APPLIC; Start 02/15/19 at 09:00 Vancomycin HCl (Vanco Iv Per Pharmacy) VANCOMYCIN PER PHARMACY PER PROTOCOL XX ; Start 02/17/19 at 09:30 Albuterol/ Ipratropium (Duoneb) 3 ml Q2H RESP THERAPY PRN HHN SHORTNESS OF BREATH Last administered on 02/26/19at 12:13; Admin Dose 3 ML; Start 02/19/19 at 19:00 Famotidine (Pepcid Iv) 20 mg DAILY IV Last administered on 02/27/19at 11:18; Admin Dose 20 MG; Start 02/20/19 at 09:00 Nystatin (Nystatin Oint) 1 applic BID TOP Last administered on 02/27/19at 21:15; Admin Dose 1 APPLIC; Start 02/21/19 at 09:00 Piperacillin Sod/ Tazobactam Sod 3.375 gm/Dextrose 100 ml @ 200 mls/hr Q6 IVPB Last administered on 02/28/19 05:49; Admin Dose 200 MLS/HR; Start 02/21/19 at 12:00 Diphenhydramine HCl (Benadryl) 25 mg Q6H PRN PO ITCHING Last administered on 02/26/19 19:55; Admin Dose 25 MG; Start 02/23/19 at 11:00 Vancomycin HCl 250 ml @ 125 mls/hr Q36H IVPB Last administered on 02/27/19 16:18; Admin Dose 125 MLS/HR; Start 02/24/19 at 16:00 Collagenase (Santyl) 1 applic BID TOP Last administered on 02/27/19 21:15; Admin Dose 1 APPLIC; Start 02/24/19 at 10:30 Zinc Sulfate (Zinc Sulfate) 220 mg DAILY PO Last administered on 02/27/19 11:24; Admin Dose 220 MG; Start 02/26/19 at 12:00 Multivitamins Therapeutic (Theragran) 1 tab DAILY PO Last administered on 02/27/19 11:24; Admin Dose 1 TAB; Start 02/26/19 at 12:00 Spironolactone (Aldactone) 25 mg DAILY PO Last administered on 02/27/19 11:24; Admin Dose 25 MG; Start 02/26/19 at 17:30 Labetalol HCl (Labetalol) 10 mg Q6 PRN IV ELEVATED BLOOD PRESSURE Last administered on 02/28/19 00:33; Admin Dose 10 MG; Start 02/27/19 at 01:30 Furosemide (Lasix) 40 mg DAILY IV Last administered on 02/27/19 13:18; Admin Dose 40 MG; Start 02/27/19 at 13:00 Carvedilol (Coreg) 6.25 mg TID PO Last administered on 02/27/19 21:25; Admin Dose 6.25 MG; Start 02/27/19 at 13:00 Lisinopril (Zestril) 5 mg BID PO Last administered on 02/27/19 21:15; Admin Dose 5 MG; Start 02/27/19 at 21:00 Atorvastatin Calcium (Lipitor) 80 mg QHS PO ; Start 02/28/19 at 21:00 Clopidogrel Bisulfate (plaVIX) 75 mg DAILY PO ; Start 02/28/19 at 09:00 Insulin Glargine (Lantus) 18 units BID SC ; Start 02/28/19 at 09:00 Nicotine (Nicoderm 21 Mg/ 24hr) 1 patch DAILY TRANSDERM ; Start 02/28/19 at 09:00 Hydralazine HCl (Apresoline) 10 mg Q4H PRN IV ELEVATED BLOOD PRESSURE Last administered on 02/28/19at 03:43; Admin Dose 10 MG; Start 02/28/19 at 03:30 Magnesium Sulfate 50 ml @ 25 mls/hr ONCE ONCE IVPB ; Start 02/28/19 at 08:00; Stop 02/28/19 at 09:59 Potassium Chloride (Klor-Con 20) 40 meq ONCE PO ; Start 02/28/19 at 14:00; Stop 02/28/19 at 14:01 Bumetanide 6 mg/ Dextrose 60 ml @ 10 mls/hr Q6H ONCE IV ; Start 02/28/19 at 09:00; Stop 02/28/19 at 14:59 ATNON OZUNA MD Feb 28, 2019 09:02
[2019-02-28] MEDS: ZINC SULFATE 220 MG CAP PO SCH (09:23)
[2019-02-28] MEDS: FUROSEMIDE 40 MG INJ IV SCH (09:23)
[2019-02-28] MEDS: SPIRONOLACTONE 25 MG TAB PO SCH (09:23)
[2019-02-28] MEDS: ASPIRIN 81 MG TAB PO SCH (09:24)
[2019-02-28] MEDS: LISINOPRIL 5 MG TAB PO SCH ×2 (09:25→19:56)
[2019-02-28] MEDS: MULTIVITAMINS THERAPEUTIC TAB PO SCH (09:25)
[2019-02-28] MEDS: INSULIN GLARGINE [LANTus] (100 UNITS/ML) SYG SC SCH ×2 (09:26→19:53)
[2019-02-28] MEDS: NYSTATIN 15 GM OINT TOP SCH ×2 (09:28→19:57)
[2019-02-28] MEDS: COLLAGENASE 5 GM (UD JAR) TOP SCH ×2 (09:28→19:57)
[2019-02-28] MEDS: BALSAM PERU/CASTOR OIL 60 GM TUBE TOP SCH ×2 (09:28→19:57)
[2019-02-28] MEDS: CLOPIDOGREL 75 MG TAB PO SCH (09:30)
[2019-02-28] MEDS: DAKINS 0.0125%(1/40) 473 ML SOLUTION TP SCH (09:30)
[2019-02-28] MEDS: NICOTINE (21 MG/24 HR) PATCH TRANSDERM SCH (09:30)
[2019-02-28] MEDS: FAMOTIDINE 20 MG INJ IV SCH (09:38)
[2019-02-28] MEDS: ACETAMINOPHEN 650MG/20.3ML CUP PO PRN ×2 (11:41→18:27)
[2019-02-28] MEDS ORDERED: POTASSIUM CHLORIDE (SR) 20 MEQ TAB PO SCH (14:00)
[2019-02-28] MEDS: ATORVASTATIN 80 MG TAB PO SCH (20:34)
[2019-02-28] MEDS: traMADol 50 MG TAB PO PRN (20:35)
[2019-03-01] MEDS: PIPERACILLIN/TAZO 3.375 GM in DEXTROSE 5% 100 ML IVPB SCH ×5 (01:05→23:48)
[2019-03-01] MEDS: ACCU-CHEK XX SCH (02:00)
[2019-03-01 04:01] VITALS: BP 149/65; PULSE 80; RESP 18
[2019-03-01] MEDS: VANCOMYCIN 1 GM 250 ML IVPB SCH (05:06)
[2019-03-01 08:00] VITALS: BP 142/64; PULSE 82; RESP 18
[2019-03-01] MEDS ORDERED: POTASSIUM CHLORIDE (SR) 20 MEQ TAB PO STA (08:22)
--- NOTE | 2019-03-01 08:22 | CONS ---
Consult Date/Type/Reason Admit Date/Time Feb 12, 2019 at 04:44 Initial Consult Date 02/20/19 Type of Consultation: cv Requesting Provider: PATSY JONES Date/Time of Note DATE: 03/01/19 TIME: 08:21 Subjective Cardiology follow-up progress note Subjective: Case discussed with staff and telemetry was reviewed. Patient has remained in normal sinus rhythm Patient has remained confused again and is unable to provide reliable history to me Patient is less hypoxemic today Patient is extubated 02/25/19 blood pressure has remained stable /high now There is no report of any chest pain or pressure Objective: General: Obese female status post intubation on the ventilator HEENT: NC/AT. pupils are equal. round. NECK: Unable to assess for JVD. no stridor. CV: RRR. systolic murmur; no gallop or rubs. PULM: no wheezing + diffuse rhonchi. 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 Right leg wound noted neuro: Awake appears to be oriented x1 only Psych: calm rectal: deferred : Deferred Echocardiogram was personally reviewed which shows: Normal left ventricular cavity size. Mild concentric left ventricular hypertrophy. Moderate left ventricular systolic dysfunction. Ejection fraction is visually estimated at 35 %. Tissue Doppler/Mitral Doppler indices are consistent with impaired relaxation (Stage I diastolic dysfunction). Multiple segmental wall motion abnormalities. Mitral valve leaflets appear mildly thickened. Mild mitral annular calcification. Trace mitral regurgitation. Normal appearance and function of the tricuspid valve with trace physiologic regurgitation. Normal right ventricular systolic pressure. suboptimal study. Chest x-ray done 02/19/2019 shows: There is mild atelectasis at the lung bases, unchanged. Mild pulmonary edema is unchanged. The heart size is normal. There are small bilateral pleural effusions. There is no pneumothorax. cxr 02/22 reviewed 1. Interval decreased central pulmonary vascular congestion. 2. Stable cardiomegaly with aortic atherosclerosis. 3. Stable position of support devices. Objective Vitals Vital Signs Date Temp Pulse Resp B/P (MAP) Pulse Ox O2 O2 Flow FiO2 Time Delivery Rate 03/01/19 98.0 82 18 142/64 93 08:00 (90) 03/01/19 2.0 04:01 02/28/19 Nasal 22:00 Cannula 02/28/19 30 14:20 Intake and Output 02/28/19 02/28/19 03/01/19 1414:59 22:59 06:59 IntakeIntake Total 310 ml 375 ml 350 ml OutputOutput Total 975 ml 770 ml 225 ml BalanceBalance -665 ml -395 ml 125 ml Results/Medications Result Diagram: 03/01/19 0521 03/01/19 0521 Results 24 hrs Laboratory Tests Test 02/28/19 09:03 02/28/19 09:32 02/28/19 12:41 02/28/19 17:19 Bedside Glucose 145 250 H 97 Blood Gas Blood arterial Specimen Source Arterial Blood 02/28/2019 10:10: Date Drawn 52 AM Arterial Blood pH 7.502 H (Temp corrected) Arterial Blood 32.0 L pCO2 (Temp correct) Arterial Blood 87.3 pO2 (Temp corrected) Arterial Blood 24.5 HCO3 Arterial Blood 2.1 Base Excess Arterial Blood 96.9 Oxygen Saturation Dawson Test ACCEPTAB Arterial Blood Right Radial Gas Puncture Site Arterial 0.5 Blood Carboxyhemo globin Arterial Blood 0 Methemoglobin Blood Gas A-a O2 89.0 H Differential Oxyhemoglobin 96.4 Percent Blood Gas 37.0 Temperature Blood Gas Actual 28 Respiration Rate Blood Gas HFNC Modality FiO2 30.0 Blood Gas DT Notified Whom Blood Gas 02/28/2019 10:28: Notified Time 26 AM Test 02/28/19 19:52 02/28/19 20:36 03/01/19 03:00 03/01/19 05:21 Bedside Glucose 153 218 152 White Blood Count 10.3 Red Blood Count 4.55 Hemoglobin 13.3 Hematocrit 42.3 Mean Corpuscular 93.0 Volume Mean Corpuscular 29.2 Hemoglobin Mean Corpuscular 31.4 L Hemoglobin Concen t Red Cell 13.0 Distribution Width Platelet Count 508 H Mean Platelet 10.3 Volume Immature 0.400 Granulocytes % Neutrophils % 76.3 Lymphocytes % 9.2 L Monocytes % 9.3 Eosinophils % 3.6 Basophils % 1.2 Nucleated Red 0.0 Blood Cells % Immature 0.040 H Granulocytes # Neutrophils # 7.9 H Lymphocytes # 1.0 Monocytes # 1.0 H Eosinophils # 0.4 Basophils # 0.1 Nucleated Red 0.0 Blood Cells # Sodium Level 146 H Potassium Level 3.5 Chloride Level 106 Carbon Dioxide 30 Level Anion Gap 10 Blood Urea 23 H Nitrogen Creatinine 1.49 H Est Glomerular Filtrat Rate mL/min Glucose Level 159 Calcium Level 9.2 Magnesium Level 2.5 Total Bilirubin 0.4 Direct Bilirubin 0.00 Indirect 0.4 Bilirubin Aspartate Amino 22 Transf (AST/SGOT) Alanine 50 Aminotransferase (ALT/SGPT) Alkaline 123 H Phosphatase B-Type 4950 H Natriuretic Peptide Total Protein 7.0 Albumin 3.5 Globulin 3.50 H Albumin/Globulin 1.00 Ratio Home Meds Reported Medications Insulin Glargine,Hum.rec.anlog (Basaglar Kwikpen U-100) 100 Unit/1 Ml Insuln.pen, 0-12 UNIT SC QHS for PER SLIDING SCALE, EA 02/12/19 Insulin Aspart* (Novolog Insulin Pen*) 100 Unit/Ml Soln, 0-12 SC .SLIDING SCALE AC, EA 02/12/19 Dulaglutide (Trulicity) 1.5 Mg/0.5 Ml Pen.injctr, 1.5 MG SQ WEEKLY 02/12/19 Aspirin* (Aspirin* Chew) 81 Mg Tab.chew, 81 MG PO DAILY, TAB.CHEW 02/12/19 Clopidogrel Bisulfate (Clopidogrel) 75 Mg Tablet, 1 TAB ORAL DAILY 02/12/19 Tramadol HCl (Tramadol HCl) 50 Mg Tablet, 1 TAB ORAL Q6 PRN for PAIN LEVEL 4-6 02/12/19 Arginine Hcl (Arginine Hcl) 1 Gm Powder, 1 GM MC DAILY 02/12/19 Sacubitril/Valsartan (Entresto 49 mg-51 mg Tablet) 1 Each Tablet, 1 TAB ORAL DAILY 02/12/19 Atorvastatin* (Atorvastatin*) 80 Mg Tablet, 1 TAB ORAL QHS 02/12/19 Carvedilol* (Carvedilol*) 25 Mg Tablet, 1 TAB ORAL BID 02/12/19 Spironolactone* (Aldactone*) 25 Mg Tablet, 12.5 MG PO QAM, #60 TAB 02/12/19 Ampicillin Sodium-Sulbactam Sodium (Unasyn*) 3 Gm Soln, 3 GM IVPB Q6, VIAL 02/12/19 Medications Current Medications Ondansetron HCl (Zofran Inj) 4 mg Q6H PRN IV NAUSEA AND/OR VOMITING; Start 02/12/19 at 07:30 Ipratropium [place] (Atrovent Hfa) 2 puff Q2H RESP THERAPY PRN INH SHORTNESS OF BREATH; Start 02/12/19 at 07:30 Acetaminophen (Tylenol Liquid) 650 mg Q6H PRN PO PAIN LEVEL 1-3 OR FEVER Last administered on 02/28/19 18:27; Admin Dose 650 MG; Start 02/12/19 at 07:30 Acetaminophen (Tylenol Supp) 650 mg Q4H PRN PA PAIN LEVEL 1-3 OR FEVER Last administered on 02/25/19 22:32; Admin Dose 650 MG; Start 02/12/19 at 07:30 Aspirin (Aspirin) 81 mg DAILY PO Last administered on 02/28/19 09:24; Admin Dose 81 MG; Start 02/12/19 at 09:00 Miscellaneous Information 1 ea NOTE XX ; Start 02/12/19 at 09:30 Glucose (Glutose) 15 gm Q15M PRN PO DECREASED GLUCOSE; Start 02/12/19 at 09:30 Glucose (Glutose) 22.5 gm Q15M PRN PO DECREASED GLUCOSE; Start 02/12/19 at 09:30 Dextrose (D50w Syringe) 25 ml Q15M PRN IV DECREASED GLUCOSE Last administered on 02/25/19at 16:03; Admin Dose 25 ML; Start 02/12/19 at 09:30 Dextrose (D50w Syringe) 50 ml Q15M PRN IV DECREASED GLUCOSE Last administered on 02/25/19at 19:58; Admin Dose 50 ML; Start 02/12/19 at 09:30 Glucagon (Glucagen) 1 mg Q15M PRN IM DECREASED GLUCOSE; Start 02/12/19 at 09:30 Glucose (Glutose) 15 gm Q15M PRN BUCCAL DECREASED GLUCOSE; Start 02/12/19 at 09:30 Sodium Hypochlorite (Dakins Diluted (1/40)) 1 applic DAILY TP Last administered on 02/28/19 09:30; Admin Dose 1 APPLIC; Start 02/15/19 at 09:00 Vancomycin HCl (Vanco Iv Per Pharmacy) VANCOMYCIN PER PHARMACY PER PROTOCOL XX ; Start 02/17/19 at 09:30 Albuterol/ Ipratropium (Duoneb) 3 ml Q2H RESP THERAPY PRN HHN SHORTNESS OF BREATH Last administered on 02/26/19at 12:13; Admin Dose 3 ML; Start 02/19/19 at 19:00 Famotidine (Pepcid Iv) 20 mg DAILY IV Last administered on 02/28/19 09:38; Admin Dose 20 MG; Start 02/20/19 at 09:00 Nystatin (Nystatin Oint) 1 applic BID TOP Last administered on 02/28/19 19:57; Admin Dose 1 APPLIC; Start 02/21/19 at 09:00 Piperacillin Sod/ Tazobactam Sod 3.375 gm/Dextrose 100 ml @ 200 mls/hr Q6 IVPB Last administered on 03/01/19 06:57; Admin Dose 200 MLS/HR; Start 02/21/19 at 12:00 Diphenhydramine HCl (Benadryl) 25 mg Q6H PRN PO ITCHING Last administered on 02/26/19 19:55; Admin Dose 25 MG; Start 02/23/19 at 11:00 Vancomycin HCl 250 ml @ 125 mls/hr Q36H IVPB Last administered on 03/01/19 05:06; Admin Dose 125 MLS/HR; Start 02/24/19 at 16:00 Collagenase (Santyl) 1 applic BID TOP Last administered on 02/28/19 19:57; Admin Dose 1 APPLIC; Start 02/24/19 at 10:30 Zinc Sulfate (Zinc Sulfate) 220 mg DAILY PO Last administered on 02/28/19 09:23; Admin Dose 220 MG; Start 02/26/19 at 12:00 Multivitamins Therapeutic (Theragran) 1 tab DAILY PO Last administered on 02/28/19 09:25; Admin Dose 1 TAB; Start 02/26/19 at 12:00 Spironolactone (Aldactone) 25 mg DAILY PO Last administered on 02/28/19 09:23; Admin Dose 25 MG; Start 02/26/19 at 17:30 Labetalol HCl (Labetalol) 10 mg Q6 PRN IV ELEVATED BLOOD PRESSURE Last administered on 02/28/19 00:33; Admin Dose 10 MG; Start 02/27/19 at 01:30 Furosemide (Lasix) 40 mg DAILY IV Last administered on 02/28/19 09:23; Admin Dose 40 MG; Start 02/27/19 at 13:00 Carvedilol (Coreg) 6.25 mg TID PO Last administered on 02/28/19 19:56; Admin Dose 6.25 MG; Start 02/27/19 at 13:00 Lisinopril (Zestril) 5 mg BID PO Last administered on 02/28/19 19:56; Admin Dose 5 MG; Start 02/27/19 at 21:00 Atorvastatin Calcium (Lipitor) 80 mg QHS PO Last administered on 02/28/19 20:34; Admin Dose 80 MG; Start 02/28/19 at 21:00 Clopidogrel Bisulfate (plaVIX) 75 mg DAILY PO Last administered on 02/28/19 09:30; Admin Dose 75 MG; Start 02/28/19 at 09:00 Insulin Glargine (Lantus) 18 units BID SC Last administered on 02/28/19 19:53; Admin Dose 18 UNITS; Start 02/28/19 at 09:00 Nicotine (Nicoderm 21 Mg/ 24hr) 1 patch DAILY TRANSDERM Last administered on 02/28/19 09:30; Admin Dose 1 PATCH; Start 02/28/19 at 09:00 Hydralazine HCl (Apresoline) 10 mg Q4H PRN IV ELEVATED BLOOD PRESSURE Last administered on 02/28/19 09:23; Admin Dose 10 MG; Start 02/28/19 at 03:30 Loperamide HCl (Imodium Cap) 2 mg QID PRN PO DIARRHEA; Start 02/28/19 at 09:00 Tramadol HCl (Ultram) 50 mg Q6H PRN PO MODERATE PAIN LEVEL 4-6 Last administered on 02/28/19 20:35; Admin Dose 50 MG; Start 02/28/19 at 20:30 Insulin Aspart (Novolog Insulin Pen) NOVOLOG *MODERATE* ALGORITHM WITH MEALS BEDTIME SC ; Start 03/01/19 at 08:00 Diagnostic Test (Pha) (Accu-Chek) 1 ea 02 XX Last administered on 03/01/19at 02:00; Admin Dose 1 EA; Start 03/01/19 at 02:00 Assessment/Plan Hospital Course (Demo Recall) Acute hypoxemic respiratory failure status post intubation now extubated 02/25/19 Congestive heart failure: Acute on chronic secondary systolic heart failure Sepsis Coronary artery disease with history of HI History of ischemic cardiomyopathy ejection fraction of 35% History of multiple PCI Severe peripheral vascular disease status post left leg amputation as well as right leg severe PAD Hypertension diabetes dyslipidemia Hyponatremia Acute kidney injury; improved now Recommendations: Continue with aspirin and Plavix Continue with IV Lasix. check CXR TODAY diabetic control as per internal medicine We will cont carvedilol and inc as needed/tolerated Antibiotic management as per internal medicine ID recommendations DVT prophylaxis GI prophylaxis as per internal medicine aldactone cont lisinopril replace electrolyte including potassium magnesium as needed Aspiration precaution Thank you for his referral. We will continue to follow along with you YOGI NICOLAS MD [facility] YOGI NICOLAS MD Mar 01, 2019 08:22
[2019-03-01] MEDS: FUROSEMIDE 40 MG INJ IV SCH (09:01)
[2019-03-01] MEDS: FAMOTIDINE 20 MG INJ IV SCH (09:02)
[2019-03-01] MEDS: SPIRONOLACTONE 25 MG TAB PO SCH (09:02)
[2019-03-01] MEDS: ASPIRIN 81 MG TAB PO SCH (09:03)
[2019-03-01] MEDS: LISINOPRIL 5 MG TAB PO SCH ×2 (09:04→21:06)
[2019-03-01] MEDS: MULTIVITAMINS THERAPEUTIC TAB PO SCH (09:04)
[2019-03-01] MEDS: ZINC SULFATE 220 MG CAP PO SCH (09:04)
[2019-03-01] MEDS: CLOPIDOGREL 75 MG TAB PO SCH (09:04)
[2019-03-01] MEDS: COLLAGENASE 5 GM (UD JAR) TOP SCH ×2 (09:05→21:16)
[2019-03-01] MEDS: BALSAM PERU/CASTOR OIL 60 GM TUBE TOP SCH ×2 (09:05→21:17)
[2019-03-01] MEDS: NYSTATIN 15 GM OINT TOP SCH ×2 (09:05→21:17)
[2019-03-01] MEDS: DAKINS 0.0125%(1/40) 473 ML SOLUTION TP SCH (09:06)
[2019-03-01] MEDS: NICOTINE (21 MG/24 HR) PATCH TRANSDERM SCH (09:06)
--- NOTE | 2019-03-01 09:22 | CONS ---
Consult Date/Type/Reason Admit Date/Time Feb 12, 2019 at 04:44 Initial Consult Date 02/20/19 Type of Consult Pulmonary Requesting Provider: PATSY JONES Date/Time of Note DATE: 03/01/19 TIME: 09:21 Subjective From ICU yesterday no respiratory distress. Objective Vital Signs Date Temp Pulse Resp B/P (MAP) Pulse Ox O2 O2 Flow FiO2 Time Delivery Rate 03/01/19 98.0 82 18 142/64 93 08:00 (90) 03/01/19 2.0 04:01 02/28/19 Nasal 22:00 Cannula 02/28/19 30 14:20 Intake and Output 02/28/19 02/28/19 03/01/19 1414:59 22:59 06:59 IntakeIntake Total 310 ml 375 ml 350 ml OutputOutput Total 975 ml 770 ml 225 ml BalanceBalance -665 ml -395 ml 125 ml Exam GENERAL: Elderly appearing lady no acute distress, VITAL SIGNS: per chart NECK: Supple. No JVD or lymphadenopathy. CARDIAC EXAM: S1, S2. No added sounds or murmurs. CHEST: Diminished air entry bilaterally ABDOMEN: Soft, nontender. No guarding or rebound. EXTREMITIES: No cyanosis, clubbing edema +2 NEUROLOGIC: Generalized weakness. No focal deficits Vent Setting Ventilator Support Mode: CPAP, PS Fraction of Inspired Oxygen pe: 30 Positive End Expiratory Pressu: 5.0 Results/Medications Result Diagram: 03/01/19 0521 03/01/19 0521 Results 24 hrs Laboratory Tests Test 02/28/19 09:32 02/28/19 12:41 02/28/19 17:19 02/28/19 19:52 Blood Gas Blood arterial Specimen Source Arterial Blood 02/28/2019 10:10: Date Drawn 52 AM Arterial Blood pH 7.502 H (Temp corrected) Arterial Blood 32.0 L pCO2 (Temp correct) Arterial Blood 87.3 pO2 (Temp corrected) Arterial Blood 24.5 HCO3 Arterial Blood 2.1 Base Excess Arterial Blood 96.9 Oxygen Saturation Dawson Test ACCEPTAB Arterial Blood Right Radial Gas Puncture Site Arterial 0.5 Blood Carboxyhemo globin Arterial Blood 0 Methemoglobin Blood Gas A-a O2 89.0 H Differential Oxyhemoglobin 96.4 Percent Blood Gas 37.0 Temperature Blood Gas Actual 28 Respiration Rate Blood Gas HFNC Modality FiO2 30.0 Blood Gas DT Notified Whom Blood Gas 02/28/2019 10:28: Notified Time 26 AM Bedside Glucose 250 H 97 153 Test 02/28/19 20:36 03/01/19 03:00 03/01/19 05:21 03/01/19 08:38 Bedside Glucose 218 152 218 White Blood Count 10.3 Red Blood Count 4.55 Hemoglobin 13.3 Hematocrit 42.3 Mean Corpuscular 93.0 Volume Mean Corpuscular 29.2 Hemoglobin Mean Corpuscular 31.4 L Hemoglobin Concen t Red Cell 13.0 Distribution Width Platelet Count 508 H Mean Platelet 10.3 Volume Immature 0.400 Granulocytes % Neutrophils % 76.3 Lymphocytes % 9.2 L Monocytes % 9.3 Eosinophils % 3.6 Basophils % 1.2 Nucleated Red 0.0 Blood Cells % Immature 0.040 H Granulocytes # Neutrophils # 7.9 H Lymphocytes # 1.0 Monocytes # 1.0 H Eosinophils # 0.4 Basophils # 0.1 Nucleated Red 0.0 Blood Cells # Sodium Level 146 H Potassium Level 3.5 Chloride Level 106 Carbon Dioxide 30 Level Anion Gap 10 Blood Urea 23 H Nitrogen Creatinine 1.49 H Est Glomerular Filtrat Rate mL/min Glucose Level 159 Calcium Level 9.2 Magnesium Level 2.5 Total Bilirubin 0.4 Direct Bilirubin 0.00 Indirect 0.4 Bilirubin Aspartate Amino 22 Transf (AST/SGOT) Alanine 50 Aminotransferase (ALT/SGPT) Alkaline 123 H Phosphatase B-Type 4950 H Natriuretic Peptide Total Protein 7.0 Albumin 3.5 Globulin 3.50 H Albumin/Globulin 1.00 Ratio Medications Current Medications Ondansetron HCl (Zofran Inj) 4 mg Q6H PRN IV NAUSEA AND/OR VOMITING; Start 02/12/19 at 07:30 Ipratropium [place] (Atrovent Hfa) 2 puff Q2H RESP THERAPY PRN INH SHORTNESS OF BREATH; Start 02/12/19 at 07:30 Acetaminophen (Tylenol Liquid) 650 mg Q6H PRN PO PAIN LEVEL 1-3 OR FEVER Last administered on 02/28/19at 18:27; Admin Dose 650 MG; Start 02/12/19 at 07:30 Acetaminophen (Tylenol Supp) 650 mg Q4H PRN MD PAIN LEVEL 1-3 OR FEVER Last administered on 02/25/19at 22:32; Admin Dose 650 MG; Start 02/12/19 at 07:30 Aspirin (Aspirin) 81 mg DAILY PO Last administered on 03/01/19 09:03; Admin Dose 81 MG; Start 02/12/19 at 09:00 Miscellaneous Information 1 ea NOTE XX ; Start 02/12/19 at 09:30 Glucose (Glutose) 15 gm Q15M PRN PO DECREASED GLUCOSE; Start 02/12/19 at 09:30 Glucose (Glutose) 22.5 gm Q15M PRN PO DECREASED GLUCOSE; Start 02/12/19 at 09:30 Dextrose (D50w Syringe) 25 ml Q15M PRN IV DECREASED GLUCOSE Last administered on 02/25/19at 16:03; Admin Dose 25 ML; Start 02/12/19 at 09:30 Dextrose (D50w Syringe) 50 ml Q15M PRN IV DECREASED GLUCOSE Last administered on 02/25/19at 19:58; Admin Dose 50 ML; Start 02/12/19 at 09:30 Glucagon (Glucagen) 1 mg Q15M PRN IM DECREASED GLUCOSE; Start 02/12/19 at 09:30 Glucose (Glutose) 15 gm Q15M PRN BUCCAL DECREASED GLUCOSE; Start 02/12/19 at 09:30 Sodium Hypochlorite (Dakins Diluted (40)) 1 applic DAILY TP Last administered on 03/01/19at 09:06; Admin Dose 1 APPLIC; Start 02/15/19 at 09:00 Vancomycin HCl (Vanco Iv Per Pharmacy) VANCOMYCIN PER PHARMACY PER PROTOCOL XX ; Start 02/17/19 at 09:30 Albuterol/ Ipratropium (Duoneb) 3 ml Q2H RESP THERAPY PRN HHN SHORTNESS OF BREATH Last administered on 02/26/19at 12:13; Admin Dose 3 ML; Start 02/19/19 at 19:00 Famotidine (Pepcid Iv) 20 mg DAILY IV Last administered on 03/01/19 09:02; Admin Dose 20 MG; Start 02/20/19 at 09:00 Nystatin (Nystatin Oint) 1 applic BID TOP Last administered on 03/01/19 09:05; Admin Dose 1 APPLIC; Start 02/21/19 at 09:00 Piperacillin Sod/ Tazobactam Sod 3.375 gm/Dextrose 100 ml @ 200 mls/hr Q6 IVPB Last administered on 03/01/19 06:57; Admin Dose 200 MLS/HR; Start 02/21/19 at 12:00 Diphenhydramine HCl (Benadryl) 25 mg Q6H PRN PO ITCHING Last administered on 02/26/19 19:55; Admin Dose 25 MG; Start 02/23/19 at 11:00 Vancomycin HCl 250 ml @ 125 mls/hr Q36H IVPB Last administered on 03/01/19 05:06; Admin Dose 125 MLS/HR; Start 02/24/19 at 16:00 Collagenase (Santyl) 1 applic BID TOP Last administered on 03/01/19 09:05; Admin Dose 1 APPLIC; Start 02/24/19 at 10:30 Zinc Sulfate (Zinc Sulfate) 220 mg DAILY PO Last administered on 03/01/19 09:04; Admin Dose 220 MG; Start 02/26/19 at 12:00 Multivitamins Therapeutic (Theragran) 1 tab DAILY PO Last administered on 03/01/19 09:04; Admin Dose 1 TAB; Start 02/26/19 at 12:00 Spironolactone (Aldactone) 25 mg DAILY PO Last administered on 03/01/19 09:02; Admin Dose 25 MG; Start 02/26/19 at 17:30 Labetalol HCl (Labetalol) 10 mg Q6 PRN IV ELEVATED BLOOD PRESSURE Last administered on 02/28/19 00:33; Admin Dose 10 MG; Start 02/27/19 at 01:30 Furosemide (Lasix) 40 mg DAILY IV Last administered on 03/01/19 09:01; Admin Dose 40 MG; Start 02/27/19 at 13:00 Carvedilol (Coreg) 6.25 mg TID PO Last administered on 03/01/19 09:03; Admin Dose 6.25 MG; Start 02/27/19 at 13:00 Lisinopril (Zestril) 5 mg BID PO Last administered on 03/01/19 09:04; Admin Dose 5 MG; Start 02/27/19 at 21:00 Atorvastatin Calcium (Lipitor) 80 mg QHS PO Last administered on 02/28/19 20:34; Admin Dose 80 MG; Start 02/28/19 at 21:00 Clopidogrel Bisulfate (plaVIX) 75 mg DAILY PO Last administered on 03/01/19 09:04; Admin Dose 75 MG; Start 02/28/19 at 09:00 Insulin Glargine (Lantus) 18 units BID SC Last administered on 02/28/19 19:53; Admin Dose 18 UNITS; Start 02/28/19 at 09:00 Nicotine (Nicoderm 21 Mg/ 24hr) 1 patch DAILY TRANSDERM Last administered on 03/01/19 09:06; Admin Dose 1 PATCH; Start 02/28/19 at 09:00 Hydralazine HCl (Apresoline) 10 mg Q4H PRN IV ELEVATED BLOOD PRESSURE Last administered on 02/28/19 09:23; Admin Dose 10 MG; Start 02/28/19 at 03:30 Loperamide HCl (Imodium Cap) 2 mg QID PRN PO DIARRHEA; Start 02/28/19 at 09:00 Tramadol HCl (Ultram) 50 mg Q6H PRN PO MODERATE PAIN LEVEL 4-6 Last administered on 02/28/19 20:35; Admin Dose 50 MG; Start 02/28/19 at 20:30 Insulin Aspart (Novolog Insulin Pen) NOVOLOG *MODERATE* ALGORITHM WITH MEALS BE DTIME SC ; Start 03/01/19 at 08:00 Diagnostic Test (Pha) (Accu-Chek) 1 ea 02 XX Last administered on 03/01/19 02:00; Admin Dose 1 EA; Start 03/01/19 at 02:00 Assessment/Plan Hospital Course (Demo Recall) Assessment 1. Acute hypoxemic respiratory failure 2. Likely acute tracheobronchitis with congestive cardiac failure 3. Peripheral vascular disease 4. History of diabetes mellitus 5. History of coronary artery disease status post coronary intervention 6. Encephalopathy toxic metabolic Plan 1. Speech therapy evaluation post extubation continue bronchodilators and aspiration precautions. 2. Incentive spirometry nocturnal noninvasive positive pressure ventilation for likely obstructive sleep apnea 3. Continue diuretics per cardiology 4. DVT GI prophylaxis 5. Physical therapy evaluation Transferred to [facility] Outpatient sleep study and pulmonary function testing KAYLAH OMALLEY MD, [facility] Mar 01, 2019 09:22
[2019-03-01] MEDS: INSULIN GLARGINE [LANTus] (100 UNITS/ML) SYG SC SCH ×2 (09:27→21:21)
[2019-03-01] MEDS: INSULIN ASPART [NOVOLOG] 3 ML PEN SC SCH ×4 (09:27→21:00)
[2019-03-01 11:32] VITALS: BP 144/61; PULSE 79; RESP 18
--- NOTE | 2019-03-01 11:49 | PN ---
Date/Time of Note Date/Time of Note DATE: 03/01/19 TIME: 11:47 Assessment/Plan VTE Prophylaxis Risk score (from Ns)>0 risk: 16 SCD applied (from Ns): No SCD contraindicated: other (pad) Pharmacological prophylaxis: NA/contraindicated Pharm contraindication: anticoag not tolerated Lines/Catheters IV [facility] Urinary Cath still in place: Yes Reason Cath still needed: pres ulcer contaminated by urine Assessment/Plan Assessment/Plan 73 yo morbidly obese woman history of peripheral vascular disease, diabetes type II, CHF, likely COPD presents with acute respiratory failure due to CHF exace rbation. #Sepsis-slowly improving, wound culture positive for MRSA, Klebsiella, enterococcus, yeast. Of note patient developed fever to 102 on 02/17, but no fevers for the last 5 days. Wound culture positive for polymicrobial growth. -For now continue empiric vanco and zosyn -Continue wound care as needed for the right toe ulcer #Acute respiratory failure- - CTPA negative for PE - Likely CHF exacerbation. Echocardiogram performed 5 days ago, shows ejection fraction 35% - Extubated 02/25 - Now breathing comfortably on room air. - Anticipate transfer to [place] on oral Lasix. #Peripheral vascular disease - Cont aspirin, plavix, statin #Diabetic/vascular right foot ulcer- Patient also has outpatient vascular followup- Patient has failed R sided revascularization in the past; per Vascular Dr Naidu repeat attempt at revascularization would be unwise. Wound swab was done which is positive for bacterial growth polymicrobial - Continue supportive treatment with local wound care and antibiotics for now, no debridement planned. #Diabetes type II, insulin dependent. A1c= 9.7, patient did have one episode of hypoglycemia yesterday, given D5 fluids to help counteract that yesterday. -We will hold Lantus this morning, monitor sugars, continue sliding scale insulin #CHF-again echo results noted -continue low-dose beta-nabeel per cardiology recommendations -Follow-up further cardiology recommendations, now back on low-dose IV Lasix. #History of DVT- LE duplex negative for DVT. 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 GI: famotidine DVT: None Result Diagram: 03/01/1952003/01/19520 Subjective 24 Hr Interval Summary Free Text/Dictation No acute overnight events. Patient awake, alert. Doing well. Exam/Review of Systems Exam Vitals Vital Signs Date Temp Pulse Resp B/P (MAP) Pulse Ox O2 O2 Flow FiO2 Time Delivery Rate 03/01/19 98.0 79 18 144/61 95 2.0 11:32 (88) 02/28/19 Nasal 22:00 Cannula 02/28/19 30 14:20 Intake and Output 02/28/19 02/28/19 03/01/19 1414:59 22:59 06:59 IntakeIntake Total 310 ml 375 ml 350 ml OutputOutput Total 975 ml 770 ml 225 ml BalanceBalance -665 ml -395 ml 125 ml Exam Gen: Morbidly obese woman lying in bed, awake and alert. HEENT: Opens eyes occasionally Neck: Supple, no lymphadenopathy. Card: Regular rate and rhythm, no murmurs. Pulm: Slightly distant breath sounds bilaterally, no crackles Abd: Soft, nontender, nondistended. Hypoactive bowel sounds. 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 R leg with well healed bypass scar below the knee. Skin: R lower leg erythema has resolved. R foot bandaged Results Results 24hrs Laboratory Tests Test 02/28/19 12:41 02/28/19 17:19 02/28/19 19:52 02/28/19 20:36 Bedside Glucose 250 H 97 153 218 Test 03/01/19 03:00 03/01/19 05:21 03/01/19 08:38 Bedside Glucose 152 218 White Blood Count 10.3 Red Blood Count 4.55 Hemoglobin 13.3 Hematocrit 42.3 Mean Corpuscular 93.0 Volume Mean Corpuscular 29.2 Hemoglobin Mean Corpuscular 31.4 L Hemoglobin Concent Red Cell 13.0 Distribution Width Platelet Count 508 H Mean Platelet Volume 10.3 Immature 0.400 Granulocytes % Neutrophils % 76.3 Lymphocytes % 9.2 L Monocytes % 9.3 Eosinophils % 3.6 Basophils % 1.2 Nucleated Red Blood 0.0 Cells % Immature 0.040 H Granulocytes # Neutrophils # 7.9 H Lymphocytes # 1.0 Monocytes # 1.0 H Eosinophils # 0.4 Basophils # 0.1 Nucleated Red Blood 0.0 Cells # Sodium Level 146 H Potassium Level 3.5 Chloride Level 106 Carbon Dioxide Level 30 Anion Gap 10 Blood Urea Nitrogen 23 H Creatinine 1.49 H Est Glomerular Filtrat Rate mL/min Glucose Level 159 Calcium Level 9.2 Magnesium Level 2.5 Total Bilirubin 0.4 Direct Bilirubin 0.00 Indirect Bilirubin 0.4 Aspartate Amino 22 Transf (AST/SGOT) Alanine 50 Aminotransferase (AL T/SGPT) Alkaline Phosphatase 123 H B-Type Natriuretic 4950 H Peptide Total Protein 7.0 Albumin 3.5 Globulin 3.50 H Albumin/Globulin 1.00 Ratio Medications Medication Current Medications Ondansetron HCl (Zofran Inj) 4 mg Q6H PRN IV NAUSEA AND/OR VOMITING; Start 02/12/19 at 07:30 Ipratropium [place] (Atrovent Hfa) 2 puff Q2H RESP THERAPY PRN INH SHORTNESS OF BREATH; Start 02/12/19 at 07:30 Acetaminophen (Tylenol Liquid) 650 mg Q6H PRN PO PAIN LEVEL 1-3 OR FEVER Last administered on 02/28/19at 18:27; Admin Dose 650 MG; Start 02/12/19 at 07:30 Acetaminophen (Tylenol Supp) 650 mg Q4H PRN GA PAIN LEVEL 1-3 OR FEVER Last administered on 02/25/19at 22:32; Admin Dose 650 MG; Start 02/12/19 at 07:30 Aspirin (Aspirin) 81 mg DAILY PO Last administered on 03/01/19at 09:03; Admin Dose 81 MG; Start 02/12/19 at 09:00 Miscellaneous Information 1 ea NOTE XX ; Start 02/12/19 at 09:30 Glucose (Glutose) 15 gm Q15M PRN PO DECREASED GLUCOSE; Start 02/12/19 at 09:30 Glucose (Glutose) 22.5 gm Q15M PRN PO DECREASED GLUCOSE; Start 02/12/19 at 09:30 Dextrose (D50w Syringe) 25 ml Q15M PRN IV DECREASED GLUCOSE Last administered on 02/25/19at 16:03; Admin Dose 25 ML; Start 02/12/19 at 09:30 Dextrose (D50w Syringe) 50 ml Q15M PRN IV DECREASED GLUCOSE Last administered on 02/25/19at 19:58; Admin Dose 50 ML; Start 02/12/19 at 09:30 Glucagon (Glucagen) 1 mg Q15M PRN IM DECREASED GLUCOSE; Start 02/12/19 at 09:30 Glucose (Glutose) 15 gm Q15M PRN BUCCAL DECREASED GLUCOSE; Start 02/12/19 at 09:30 Sodium Hypochlorite (Dakins Diluted ()) 1 applic DAILY TP Last administered on 03/01/19 09:06; Admin Dose 1 APPLIC; Start 02/15/19 at 09:00 Vancomycin HCl (Vanco Iv Per Pharmacy) VANCOMYCIN PER PHARMACY PER PROTOCOL XX ; Start 02/17/19 at 09:30 Albuterol/ Ipratropium (Duoneb) 3 ml Q2H RESP THERAPY PRN HHN SHORTNESS OF BREATH Last administered on 02/26/19 12:13; Admin Dose 3 ML; Start 02/19/19 at 19:00 Famotidine (Pepcid Iv) 20 mg DAILY IV Last administered on 03/01/19 09:02; Admin Dose 20 MG; Start 02/20/19 at 09:00 Nystatin (Nystatin Oint) 1 applic BID TOP Last administered on 03/01/19 09:05; Admin Dose 1 APPLIC; Start 02/21/19 at 09:00 Piperacillin Sod/ Tazobactam Sod 3.375 gm/Dextrose 100 ml @ 200 mls/hr Q6 IVPB Last administered on 03/01/19 06:57; Admin Dose 200 MLS/HR; Start 02/21/19 at 1 2:00 Diphenhydramine HCl (Benadryl) 25 mg Q6H PRN PO ITCHING Last administered on 02/26/19 19:55; Admin Dose 25 MG; Start 02/23/19 at 11:00 Vancomycin HCl 250 ml @ 125 mls/hr Q36H IVPB Last administered on 03/01/19 05:06; Admin Dose 125 MLS/HR; Start 02/24/19 at 16:00 Collagenase (Santyl) 1 applic BID TOP Last administered on 03/01/19 09:05; Admin Dose 1 APPLIC; Start 02/24/19 at 10:30 Zinc Sulfate (Zinc Sulfate) 220 mg DAILY PO Last administered on 03/01/19 09:04; Admin Dose 220 MG; Start 02/26/19 at 12:00 Multivitamins Therapeutic (Theragran) 1 tab DAILY PO Last administered on 02/06 09:04; Admin Dose 1 TAB; Start 02/26/19 at 12:00 Spironolactone (Aldactone) 25 mg DAILY PO Last administered on 03/01/19 09:02; Admin Dose 25 MG; Start 02/26/19 at 17:30 Labetalol HCl (Labetalol) 10 mg Q6 PRN IV ELEVATED BLOOD PRESSURE Last administered on 02/28/19 00:33; Admin Dose 10 MG; Start 02/27/19 at 01:30 Furosemide (Lasix) 40 mg DAILY IV Last administered on 03/01/19 09:01; Admin Dose 40 MG; Start 02/27/19 at 13:00 Carvedilol (Coreg) 6.25 mg TID PO Last administered on 03/01/19 09:03; Admin Dose 6.25 MG; Start 02/27/19 at 13:00 Lisinopril (Zestril) 5 mg BID PO Last administered on 03/01/19 09:04; Admin Dose 5 MG; Start 02/27/19 at 21:00 Atorvastatin Calcium (Lipitor) 80 mg QHS PO Last administered on 02/28/19 20:34; Admin Dose 80 MG; Start 02/28/19 at 21:00 Clopidogrel Bisulfate (plaVIX) 75 mg DAILY PO Last administered on 03/01/19 09:04; Admin Dose 75 MG; Start 02/28/19 at 09:00 Insulin Glargine (Lantus) 18 units BID SC Last administered on 03/01/19 09:27; Admin Dose 18 UNITS; Start 02/28/19 at 09:00 Nicotine (Nicoderm 21 Mg/ 24hr) 1 patch DAILY TRANSDERM Last administered on 03/01/19 09:06; Admin Dose 1 PATCH; Start 02/28/19 at 09:00 Hydralazine HCl (Apresoline) 10 mg Q4H PRN IV ELEVATED BLOOD PRESSURE Last administered on 02/28/19 09:23; Admin Dose 10 MG; Start 02/28/19 at 03:30 Loperamide HCl (Imodium Cap) 2 mg QID PRN PO DIARRHEA; Start 02/28/19 at 09:00 Tramadol HCl (Ultram) 50 mg Q6H PRN PO MODERATE PAIN LEVEL 4-6 Last administered on 02/28/19 20:35; Admin Dose 50 MG; Start 02/28/19 at 20:30 Insulin Aspart (Novolog Insulin Pen) NOVOLOG *MODERATE* ALGORITHM WITH MEALS BEDTIME SC Last administered on 03/01/19at 09:27; Admin Dose 4 UNIT; Start 03/01/19 at 08:00 Diagnostic Test (Pha) (Accu-Chek) 1 ea 02 XX Last administered on 03/01/19at 02:00; Admin Dose 1 EA; Start 03/01/19 at 02:00 ANTON OZUNA MD Mar 01, 2019 11:49
[2019-03-01] MEDS ORDERED: PIPER-TAZO 3.375 GM IV (PMX) 100 ML ONE (12:00)
[2019-03-01 15:58] VITALS: BP 137/66; PULSE 80; RESP 18
[2019-03-01] MEDS: traMADol 50 MG TAB PO PRN (18:46)
[2019-03-01 20:36] VITALS: BP 134/86; PULSE 89; RESP 18
[2019-03-01] MEDS: ATORVASTATIN 80 MG TAB PO SCH (21:05)
[2019-03-02 00:06] VITALS: BP 140/66; PULSE 78; RESP 20
[2019-03-02] MEDS: ACCU-CHEK XX SCH (02:00)
[2019-03-02 04:15] VITALS: BP 163/72; PULSE 81; RESP 19
[2019-03-02] MEDS: PIPERACILLIN/TAZO 3.375 GM in DEXTROSE 5% 100 ML IVPB SCH (06:02)
[2019-03-02 07:52] VITALS: BP 190/85; PULSE 76; RESP 22
[2019-03-02] MEDS: INSULIN ASPART [NOVOLOG] 3 ML PEN SC SCH ×4 (08:00→21:00)
--- NOTE | 2019-03-02 09:18 | CONS ---
Assessment/Plan Assessment/Plan Assessment/Plan (Daily) Right hallux diabetic ulcer right foot early osteomyelitis PAD CHF exacerbation Respiratory failure DM2 with hyperglycemia Hx of left lower extremity hip disarticulation Intubation with mechanical ventilator hx of HIT Plan MRI showing Reactive osteitis of the first proximal and distal phalanges with focal early osteomyelitis involving the medial base of the first distal phalanx at medial head of the first proximal phalanx.and wound culture showing staph aureus. Appreciate vascular surgery input. Patient does not have adequate blood supply to warrant surgical debridement at this time. No plans for surgical intervention at this time given patient's status and extensive vascular history. Continue with local wound care and palliative care. The wound does not appear infected as it is dry, without erythema and no purulence appreciated. Patient presents as a complicated vascular patient with extensive work done previously and complication of HIT. Recommend daily wound dressing change with dakins irrigation, iodosorb topical and dry sterile dressings. Nursing instructions provided and recommend offloading of heel with pillows. Consultation Date/Type/Reason Admit Date/Time Feb 12, 2019 at 04:44 Initial Consult Date 02/13/19 Requesting Provider: PATSY JONES Date/Time of Note DATE: 03/02/19 TIME: 09:18 24 HR Interval Summary Free Text/Dictation No acute events overnight. Exam/Review of Systems Exam Vitals Vital Signs Date Temp Pulse Resp B/P (MAP) Pulse Ox O2 O2 Flow FiO2 Time Delivery Rate 03/02/19 98.1 76 22 190/85 96 Room Air 07:52 (120) 03/02/19 2.0 05:43 02/28/19 30 14:20 Intake and Output 03/01/19 03/01/19 03/02/19 1515:00 23:00 07:00 IntakeIntake Total 100 ml 250 ml 170 ml OutputOutput Total 2350 ml 1600 ml BalanceBalance 100 ml -2100 ml -1430 ml Exam DP/PT non palpable Popliteal weakly palpable Unable to assess protective sensations Patient intubated Left lower extremity hip disarticulation appreciated Right hallux medial aspect 3 x 2 x 0.4cm fibrotic wound bed dry in nature, no purulence expressed, no proximal streaking X-ray Foot IMPRESSION: 1. No acute fractures or dislocations. 2. Mild vascular calcifications compatible with diabetic foot or atherosclerotic vascular disease Non invasive arterial studies IMPRESSION: Occluded right mid and distal SFA. Diffuse monophasic waveforms with markedly decreased velocities in the right proximal SFA, right popliteal and [id number] arteries. Follow-up CT angiogram is recommended. Results Result Diagram: 03/02/19 0520 03/02/19 0520 Results 24hrs Laboratory Tests Test 03/01/19 17:18 03/01/19 21:02 03/02/19 05:20 03/02/19 07:41 Bedside Glucose 128 141 117 White Blood Count 8.1 # Red Blood Count 4.62 Hemoglobin 13.5 Hematocrit 42.7 Mean Corpuscular 92.4 Volume Mean Corpuscular 29.2 Hemoglobin Mean Corpuscular 31.6 L Hemoglobin Concent Red Cell 12.9 Distribution Width Platelet Count 474 H Mean Platelet Volume 10.2 Immature 0.200 Granulocytes % Neutrophils % 69.5 Lymphocytes % 13.5 L Monocytes % 9.8 Eosinophils % 5.6 Basophils % 1.4 Nucleated Red Blood 0.0 Cells % Immature 0.020 Granulocytes # Neutrophils # 5.6 Lymphocytes # 1.1 Monocytes # 0.8 Eosinophils # 0.5 Basophils # 0.1 Nucleated Red Blood 0.0 Cells # Sodium Level 148 H Potassium Level 3.9 Chloride Level 109 Carbon Dioxide Level 29 Anion Gap 10 Blood Urea Nitrogen 23 H Creatinine 1.32 H Est Glomerular Filtrat Rate mL/min Glucose Level 110 # Calcium Level 9.2 Magnesium Level 2.1 B-Type Natriuretic 4430 H Peptide Medications Medication Current Medications Ondansetron HCl (Zofran Inj) 4 mg Q6H PRN IV NAUSEA AND/OR VOMITING; Start 02/12/19 at 07:30 Ipratropium [place] (Atrovent Hfa) 2 puff Q2H RESP THERAPY PRN INH SHORTNESS OF BREATH; Start 02/12/19 at 07:30 Acetaminophen (Tylenol Liquid) 650 mg Q6H PRN PO PAIN LEVEL 1-3 OR FEVER Last administered on 02/28/19at 18:27; Admin Dose 650 MG; Start 02/12/19 at 07:30 Acetaminophen (Tylenol Supp) 650 mg Q4H PRN [place] PAIN LEVEL 1-3 OR FEVER Last adm inistered on 02/25/19at 22:32; Admin Dose 650 MG; Start 02/12/19 at 07:30 Aspirin (Aspirin) 81 mg DAILY PO Last administered on 03/01/19at 09:03; Admin Dose 81 MG; Start 02/12/19 at 09:00 Miscellaneous Information 1 ea NOTE XX ; Start 02/12/19 at 09:30 Glucose (Glutose) 15 gm Q15M PRN PO DECREASED GLUCOSE; Start 02/12/19 at 09:30 Glucose (Glutose) 22.5 gm Q15M PRN PO DECREASED GLUCOSE; Start 02/12/19 at 09:30 Dextrose (D50w Syringe) 25 ml Q15M PRN IV DECREASED GLUCOSE Last administered on 02/25/19at 16:03; Admin Dose 25 ML; Start 02/12/19 at 09:30 Dextrose (D50w Syringe) 50 ml Q15M PRN IV DECREASED GLUCOSE Last administered on 02/25/19at 19:58; Admin Dose 50 ML; Start 02/12/19 at 09:30 Glucagon (Glucagen) 1 mg Q15M PRN IM DECREASED GLUCOSE; Start 02/12/19 at 09:30 Glucose (Glutose) 15 gm Q15M PRN BUCCAL DECREASED GLUCOSE; Start 02/12/19 at 09:30 Sodium Hypochlorite (Dakins Diluted (1/40)) 1 applic DAILY TP Last administered on 03/01/19at 09:06; Admin Dose 1 APPLIC; Start 02/15/19 at 09:00 Vancomycin HCl (Vanco Iv Per Pharmacy) VANCOMYCIN PER PHARMACY PER PROTOCOL XX ; Start 02/17/19 at 09:30 Albuterol/ Ipratropium (Duoneb) 3 ml Q2H RESP THERAPY PRN HHN SHORTNESS OF BREATH Last administered on 02/26/19at 12:13; Admin Dose 3 ML; Start 02/19/19 at 19:00 Nystatin (Nystatin Oint) 1 applic BID TOP Last administered on 03/01/19at 21:17; Admin Dose 1 APPLIC; Start 02/21/19 at 09:00 Piperacillin Sod/ Tazobactam Sod 3.375 gm/Dextrose 100 ml @ 200 mls/hr Q6 IVPB Last administered on 03/02/19at 06:02; Admin Dose 200 MLS/HR; Start 02/21/19 at 12:00 Diphenhydramine HCl (Benadryl) 25 mg Q6H PRN PO ITCHING Last administered on 02/26/19at 19:55; Admin Dose 25 MG; Start 02/23/19 at 11:00 Vancomycin HCl 250 ml @ 125 mls/hr Q36H IVPB Last administered on 03/01/19 05:06; Admin Dose 125 MLS/HR; Start 02/24/19 at 16:00 Collagenase (Santyl) 1 applic BID TOP Last administered on 03/01/19 21:16; Admin Dose 1 APPLIC; Start 02/24/19 at 10:30 Zinc Sulfate (Zinc Sulfate) 220 mg DAILY PO Last administered on 03/01/19 09:04; Admin Dose 220 MG; Start 02/26/19 at 12:00 Multivitamins Therapeutic (Theragran) 1 tab DAILY PO Last administered on 03/01/19 09:04; Admin Dose 1 TAB; Start 02/26/19 at 12:00 Spironolactone (Aldactone) 25 mg DAILY PO Last administered on 03/01/19 09:02; Admin Dose 25 MG; Start 02/26/19 at 17:30 Labetalol HCl (Labetalol) 10 mg Q6 PRN IV ELEVATED BLOOD PRESSURE Last administered on 02/28/19 00:33; Admin Dose 10 MG; Start 02/27/19 at 01:30 Furosemide (Lasix) 40 mg DAILY IV Last administered on 03/01/19 09:01; Admin Dose 40 MG; Start 02/27/19 at 13:00 Carvedilol (Coreg) 6.25 mg TID PO Last administered on 03/01/19 21:05; Admin Dose 6.25 MG; Start 02/27/19 at 13:00 Lisinopril (Zestril) 5 mg BID PO Last administered on 03/01/19 21:06; Admin Dose 5 MG; Start 02/27/19 at 21:00 Atorvastatin Calcium (Lipitor) 80 mg QHS PO Last administered on 03/01/19 2 1:05; Admin Dose 80 MG; Start 02/28/19 at 21:00 Clopidogrel Bisulfate (plaVIX) 75 mg DAILY PO Last administered on 03/01/19 09:04; Admin Dose 75 MG; Start 02/28/19 at 09:00 Insulin Glargine (Lantus) 18 units BID SC Last administered on 03/01/19 21:21; Admin Dose 18 UNITS; Start 02/28/19 at 09:00 Nicotine (Nicoderm 21 Mg/ 24hr) 1 patch DAILY TRANSDERM Last administered on 03/01/19 09:06; Admin Dose 1 PATCH; Start 02/28/19 at 09:00 Hydralazine HCl (Apresoline) 10 mg Q4H PRN IV ELEVATED BLOOD PRESSURE Last administered on 02/28/19 09:23; Admin Dose 10 MG; Start 02/28/19 at 03:30 Loperamide HCl (Imodium Cap) 2 mg QID PRN PO DIARRHEA; Start 02/28/19 at 09:00 Tramadol HCl (Ultram) 50 mg Q6H PRN PO MODERATE PAIN LEVEL 4-6 Last administered on 03/01/19 18:46; Admin Dose 50 MG; Start 02/28/19 at 20:30 Insulin Aspart (Novolog Insulin Pen) NOVOLOG *MODERATE* ALGORITHM WITH MEALS BEDTIME SC Last administered on 03/01/19 09:27; Admin Dose 4 UNIT; Start 03/01/19 at 08:00 Diagnostic Test (Pha) (Accu-Chek) 1 ea 02 XX Last administered on 03/01/19 02:00; Admin Dose 1 EA; Start 03/01/19 at 02:00 Famotidine (Pepcid) 20 mg DAILY PO ; Start 03/02/19 at 09:00 NASIR MILLER DPM Mar 02, 2019 09:18
[2019-03-02] MEDS: FUROSEMIDE 40 MG INJ IV SCH (09:49)
[2019-03-02] MEDS: CLOPIDOGREL 75 MG TAB PO SCH (09:49)
[2019-03-02] MEDS: COLLAGENASE 5 GM (UD JAR) TOP SCH ×2 (09:49→21:00)
[2019-03-02] MEDS: NYSTATIN 15 GM OINT TOP SCH ×2 (09:49→21:00)
[2019-03-02] MEDS: MULTIVITAMINS THERAPEUTIC TAB PO SCH (09:49)
[2019-03-02] MEDS: FAMOTIDINE 20 MG TAB PO SCH (09:49)
[2019-03-02] MEDS: ASPIRIN 81 MG TAB PO SCH (09:49)
[2019-03-02] MEDS: LISINOPRIL 5 MG TAB PO SCH ×2 (09:50→21:06)
[2019-03-02] MEDS: SPIRONOLACTONE 25 MG TAB PO SCH (09:50)
[2019-03-02] MEDS: ZINC SULFATE 220 MG CAP PO SCH (09:50)
[2019-03-02] MEDS: INSULIN GLARGINE [LANTus] (100 UNITS/ML) SYG SC SCH ×2 (10:02→21:00)
[2019-03-02] MEDS: BALSAM PERU/CASTOR OIL 60 GM TUBE TOP SCH ×2 (10:09→21:00)
[2019-03-02] MEDS: DAKINS 0.0125%(1/40) 473 ML SOLUTION TP SCH (10:09)
[2019-03-02] MEDS: NICOTINE (21 MG/24 HR) PATCH TRANSDERM SCH (10:09)
--- NOTE | 2019-03-02 10:46 | PSY ---
Date/Time of Note Date/Time of Note DATE: 03/02/19 TIME: 10:39 Psychiatric Subjective Eval Consent Pt consented to telemedicine: No Subjective Evaluation Patient location: inpatient Chief Complaint: SOB History of present illness Patient is a 73-year-old [place] female who is currently on telemetry unit with sudden onset of respiratory distress. Patient is alert with periods of disorganized thought. She is able to communicate in Malian and respond to questions in Malian. She is increasingly agitated, difficult to redirect, she remains on one-to-one supervision for her safety. Discussed with patient she will be started on a mood stabilizer "she states give me anything I will take it" Past psychiatric history Denies Hospitalization: other Medical history Problems Medical Problems: (1) Shortness of breath Status: Acute Allergies: Coded Allergies: heparin (Verified Allergy, Unknown, 02/12/19) Uncoded Allergies: IODINE (Allergy, Unknown, 02/12/19) Substance Abuse Substance abuse history: No Prior substance abuse treatmen: No Social History Marital status: other DPA/Conservatorship: No Psychiatric Objective Eval Review of Systems: Review of Systems: Not Applicable Physical Examination: Physical Examination: Not Applicable Energy: Decreased Interest: Decreased Mental Status Examination: Eye Contact: Fair Psychomotor Activity: Normal Behavior: Cooperative Speech: Soft AFFECT: Anxious Mood: Anxious, Irritable Though Process: Tangential Orientation: x3 Cognition: Alert Insight: Moderate Judgement: Moderate Attention Span: Distractible Laboratory Results Laboratory Tests Test 02/28/19 12:41 02/28/19 17:19 02/28/19 19:52 02/28/19 20:36 Bedside Glucose 250 mg/dL 97 mg/dL 153 mg/dL 218 mg/dL Test 03/01/19 03:00 03/01/19 05:21 03/01/19 08:38 03/01/19 17:18 Bedside Glucose 152 mg/dL 218 mg/dL 128 mg/dL White Blood Count 10.3 10^3/ul Red Blood Count 4.55 10^6/ul Hemoglobin 13.3 g/dl Hematocrit 42.3 % Mean Corpuscular 93.0 fl Volume Mean Corpuscular 29.2 pg Hemoglobin Mean Corpuscular 31.4 g/dl Hemoglobin Concent Red Cell 13.0 % Distribution Width Platelet Count 508 10^3/UL Mean Platelet 10.3 fl Volume Immature 0.400 % Granulocytes % Neutrophils % 76.3 % Lymphocytes % 9.2 % Monocytes % 9.3 % Eosinophils % 3.6 % Basophils % 1.2 % Nucleated Red Blood 0.0 /100WBC Cells % Immature 0.040 10^3/ul Granulocytes # Neutrophils # 7.9 10^3/ul Lymphocytes # 1.0 10^3/ul Monocytes # 1.0 10^3/ul Eosinophils # 0.4 10^3/ul Basophils # 0.1 10^3/ul Nucleated Red Blood 0.0 10^3/ul Cells # Sodium Level 146 mmol/L Potassium Level 3.5 mmol/L Chloride Level 106 mmol/L Carbon Dioxide 30 mmol/L Level Anion Gap 10 Blood Urea Nitrogen 23 mg/dl Creatinine 1.49 mg/dl Est Glomerular mL/min Filtrat Rate mL/min Glucose Level 159 mg/dl Calcium Level 9.2 mg/dl Magnesium Level 2.5 mg/dl Total Bilirubin 0.4 mg/dl Direct Bilirubin 0.00 mg/dl Indirect Bilirubin 0.4 mg/dl Aspartate Amino 22 IU/L Transf (AST/SGOT) Alanine 50 IU/L Aminotransferase (A LT/SGPT) Alkaline 123 IU/L Phosphatase B-Type Natriuretic 4950 PG/ML Peptide Total Protein 7.0 g/dl Albumin 3.5 g/dl Globulin 3.50 g/dl Albumin/Globulin 1.00 Ratio Test 03/01/19 21:02 03/02/19 05:20 03/02/19 07:41 Bedside Glucose 141 mg/dL 117 mg/dL White Blood Count 8.1 10^3/ul Red Blood Count 4.62 10^6/ul Hemoglobin 13.5 g/dl Hematocrit 42.7 % Mean Corpuscular 92.4 fl Volume Mean Corpuscular 29.2 pg Hemoglobin Mean Corpuscular 31.6 g/dl Hemoglobin Concent Red Cell 12.9 % Distribution Width Platelet Count 474 10^3/UL Mean Platelet 10.2 fl Volume Immature 0.200 % Granulocytes % Neutrophils % 69.5 % Lymphocytes % 13.5 % Monocytes % 9.8 % Eosinophils % 5.6 % Basophils % 1.4 % Nucleated Red Blood 0.0 /100WBC Cells % Immature 0.020 10^3/ul Granulocytes # Neutrophils # 5.6 10^3/ul Lymphocytes # 1.1 10^3/ul Monocytes # 0.8 10^3/ul Eosinophils # 0.5 10^3/ul Basophils # 0.1 10^3/ul Nucleated Red Blood 0.0 10^3/ul Cells # Sodium Level 148 mmol/L Potassium Level 3.9 mmol/L Chloride Level 109 mmol/L Carbon Dioxide 29 mmol/L Level Anion Gap 10 Blood Urea Nitrogen 23 mg/dl Creatinine 1.32 mg/dl Est Glomerular mL/min Filtrat Rate mL/min Glucose Level 110 mg/dl Calcium Level 9.2 mg/dl Magnesium Level 2.1 mg/dl B-Type Natriuretic 4430 PG/ML Peptide Assessment and Plan Assessment/Diagnosis Diagnosis Mood disorder NOS Recommendation/Plan Medication Management Depakene 125 mg 3 times daily Multiple antipsychotics: No Discharge Disposition: Other Legal Status: Voluntary (Does not meet criteria for 5150 hold) MALGORZATA PETERS NP Mar 02, 2019 10:46
--- NOTE | 2019-03-02 10:54 | CONS ---
Consult Date/Type/Reason Admit Date/Time Feb 12, 2019 at 04:44 Initial Consult Date 02/20/19 Type of Consult Pulmonary Requesting Provider: PATSY JONES Date/Time of Note DATE: 03/02/19 TIME: 10:53 Subjective Still requiring a sitter. Intermittent agitation. Objective Vital Signs Date Temp Pulse Resp B/P (MAP) Pulse Ox O2 O2 Flow FiO2 Time Delivery Rate 03/02/19 98.1 76 22 190/85 96 Room Air 07:52 (120) 03/02/19 2.0 05:43 02/28/19 30 14:20 Intake and Output 03/01/19 03/01/19 03/02/19 1515:00 23:00 07:00 IntakeIntake Total 100 ml 250 ml 170 ml OutputOutput Total 2350 ml 1600 ml BalanceBalance 100 ml -2100 ml -1430 ml Exam GENERAL: Elderly appearing lady no acute distress, VITAL SIGNS: per chart NECK: Supple. No JVD or lymphadenopathy. CARDIAC EXAM: S1, S2. No added sounds or murmurs. CHEST: Diminished air entry bilaterally ABDOMEN: Soft, nontender. No guarding or rebound. EXTREMITIES: No cyanosis, clubbing edema +2 NEUROLOGIC: Generalized weakness. No focal deficits Vent Setting Ventilator Support Mode: CPAP, PS Fraction of Inspired Oxygen pe: 30 Positive End Expiratory Pressu: 5.0 Results/Medications Result Diagram: 03/02/1951903/02/19519 Results 24 hrs Laboratory Tests Test 03/01/19 17:18 03/01/19 21:02 03/02/19 05:20 03/02/19 07:41 Bedside Glucose 128 141 117 White Blood Count 8.1 # Red Blood Count 4.62 Hemoglobin 13.5 Hematocrit 42.7 Mean Corpuscular 92.4 Volume Mean Corpuscular 29.2 Hemoglobin Mean Corpuscular 31.6 L Hemoglobin Concent Red Cell 12.9 Distribution Width Platelet Count 474 H Mean Platelet Volume 10.2 Immature 0.200 Granulocytes % Neutrophils % 69.5 Lymphocytes % 13.5 L Monocytes % 9.8 Eosinophils % 5.6 Basophils % 1.4 Nucleated Red Blood 0.0 Cells % Immature 0.020 Granulocytes # Neutrophils # 5.6 Lymphocytes # 1.1 Monocytes # 0.8 Eosinophils # 0.5 Basophils # 0.1 Nucleated Red Blood 0.0 Cells # Sodium Level 148 H Potassium Level 3.9 Chloride Level 109 Carbon Dioxide Level 29 Anion Gap 10 Blood Urea Nitrogen 23 H Creatinine 1.32 H Est Glomerular Filtrat Rate mL/min Glucose Level 110 # Calcium Level 9.2 Magnesium Level 2.1 B-Type Natriuretic 4430 H Peptide Medications Current Medications Ondansetron HCl (Zofran Inj) 4 mg Q6H PRN IV NAUSEA AND/OR VOMITING; Start 02/12/19 at 07:30 Ipratropium [place] (Atrovent Hfa) 2 puff Q2H RESP THERAPY PRN INH SHORTNESS OF BREATH; Start 02/12/19 at 07:30 Acetaminophen (Tylenol Liquid) 650 mg Q6H PRN PO PAIN LEVEL 1-3 OR FEVER Last administered on 02/28/19at 18:27; Admin Dose 650 MG; Start 02/12/19 at 07:30 Acetaminophen (Tylenol Supp) 650 mg Q4H PRN [place] PAIN LEVEL 1-3 OR FEVER Last administered on 02/25/19at 22:32; Admin Dose 650 MG; Start 02/12/19 at 07:30 Aspirin (Aspirin) 81 mg DAILY PO Last administered on 03/02/19at 09:49; Admin Dose 81 MG; Start 02/12/19 at 09:00 Miscellaneous Information 1 ea NOTE XX ; Start 02/12/19 at 09:30 Glucose (Glutose) 15 gm Q15M PRN PO DECREASED GLUCOSE; Start 02/12/19 at 09:30 Glucose (Glutose) 22.5 gm Q15M PRN PO DECREASED GLUCOSE; Start 02/12/19 at 09:30 Dextrose (D50w Syringe) 25 ml Q15M PRN IV DECREASED GLUCOSE Last administered on 02/25/19at 16:03; Admin Dose 25 ML; Start 02/12/19 at 09:30 Dextrose (D50w Syringe) 50 ml Q15M PRN IV DECREASED GLUCOSE Last administered on 02/25/19at 19:58; Admin Dose 50 ML; Start 02/12/19 at 09:30 Glucagon (Glucagen) 1 mg Q15M PRN IM DECREASED GLUCOSE; Start 02/12/19 at 09:30 Glucose (Glutose) 15 gm Q15M PRN BUCCAL DECREASED GLUCOSE; Start 02/12/19 at 09:30 Sodium Hypochlorite (Dakins Diluted (1/40)) 1 applic DAILY TP Last administered on 03/02/19 10:09; Admin Dose 1 APPLIC; Start 02/15/19 at 09:00 Vancomycin HCl (Vanco Iv Per Pharmacy) VANCOMYCIN PER PHARMACY PER PROTOCOL XX ; Start 02/17/19 at 09:30 Albuterol/ Ipratropium (Duoneb) 3 ml Q2H RESP THERAPY PRN HHN SHORTNESS OF BREATH Last administered on 02/26/19 12:13; Admin Dose 3 ML; Start 02/19/19 at 19:00 Nystatin (Nystatin Oint) 1 applic BID TOP Last administered on 03/02/19 09:49; Admin Dose 1 APPLIC; Start 02/21/19 at 09:00 Piperacillin Sod/ Tazobactam Sod 3.375 gm/Dextrose 100 ml @ 200 mls/hr Q6 IVPB Last administered on 03/02/19 06:02; Admin Dose 200 MLS/HR; Start 02/21/19 at 12:00 Diphenhydramine HCl (Benadryl) 25 mg Q6H PRN PO ITCHING Last administered on 02/26/19 19:55; Admin Dose 25 MG; Start 02/23/19 at 11:00 Vancomycin HCl 250 ml @ 125 mls/hr Q36H IVPB Last administered on 03/01/19 05:06; Admin Dose 125 MLS/HR; Start 02/24/19 at 16:00 Collagenase (Santyl) 1 applic BID TOP Last administered on 03/02/19 09:49; Admin Dose 1 APPLIC; Start 02/24/19 at 10:30 Zinc Sulfate (Zinc Sulfate) 220 mg DAILY PO Last administered on 03/02/19 09:50; Admin Dose 220 MG; Start 02/26/19 at 12:00 Multivitamins Therapeutic (Theragran) 1 tab DAILY PO Last administered on 03/02/19 09:49; Admin Dose 1 TAB; Start 02/26/19 at 12:00 Spironolactone (Aldactone) 25 mg DAILY PO Last administered on 03/02/19 09:50; Admin Dose 25 MG; Start 02/26/19 at 17:30 Labetalol HCl (Labetalol) 10 mg Q6 PRN IV ELEVATED BLOOD PRESSURE Last admi nistered on 02/28/19 00:33; Admin Dose 10 MG; Start 02/27/19 at 01:30 Furosemide (Lasix) 40 mg DAILY IV Last administered on 03/02/19 09:49; Admin Dose 40 MG; Start 02/27/19 at 13:00 Carvedilol (Coreg) 6.25 mg TID PO Last administered on 03/02/19 09:50; Admin Dose 6.25 MG; Start 02/27/19 at 13:00 Lisinopril (Zestril) 5 mg BID PO Last administered on 03/02/19 09:50; Admin Dose 5 MG; Start 02/27/19 at 21:00 Atorvastatin Calcium (Lipitor) 80 mg QHS PO Last administered on 03/01/19 21:05; Admin Dose 80 MG; Start 02/28/19 at 21:00 Clopidogrel Bisulfate (plaVIX) 75 mg DAILY PO Last administered on 03/02/19 09:49; Admin Dose 75 MG; Start 02/28/19 at 09:00 Insulin Glargine (Lantus) 18 units BID SC Last administered on 03/02/19 10:02; Admin Dose 18 UNITS; Start 02/28/19 at 09:00 Nicotine (Nicoderm 21 Mg/ 24hr) 1 patch DAILY TRANSDERM Last administered on 03/02/19 10:09; Admin Dose 1 PATCH; Start 02/28/19 at 09:00 Hydralazine HCl (Apresoline) 10 mg Q4H PRN IV ELEVATED BLOOD PRESSURE Last administered on 02/28/19 09:23; Admin Dose 10 MG; Start 02/28/19 at 03:30 Loperamide HCl (Imodium Cap) 2 mg QID PRN PO DIARRHEA; Start 02/28/19 at 09:00 Tramadol HCl (Ultram) 50 mg Q6H PRN PO MODERATE PAIN LEVEL 4-6 Last administered on 03/01/19 18:46; Admin Dose 50 MG; Start 02/28/19 at 20:30 Insulin Aspart (Novolog Insulin Pen) NOVOLOG *MODERATE* ALGORITHM WITH MEALS BEDTIME SC Last administered on 03/01/19 09:27; Admin Dose 4 UNIT; Start 03/01/19 at 08:00 Diagnostic Test (Pha) (Accu-Chek) 1 ea 02 XX Last administered on 7/25/19at 02:00; Admin Dose 1 EA; Start 03/01/19 at 02:00 Famotidine (Pepcid) 20 mg DAILY PO Last administered on 03/02/19at 09:49; Admin Dose 20 MG; Start 03/02/19 at 09:00 Valproic Acid (Depakene) 250 mg TID PO ; Start 03/02/19 at 13:00 Assessment/Plan Hospital Course (Demo Recall) Assessment 1. Acute hypoxemic respiratory failure 2. Likely acute tracheobronchitis with congestive cardiac failure 3. Peripheral vascular disease 4. History of diabetes mellitus 5. History of coronary artery disease status post coronary intervention 6. Encephalopathy toxic metabolic Plan 1. Speech therapy evaluation post extubation continue bronchodilators and aspiration precautions. 2. Incentive spirometry nocturnal noninvasive positive pressure ventilation for likely obstructive sleep apnea 3. Continue diuretics per cardiology 4. DVT GI prophylaxis 5. Physical therapy evaluation 6. Psych eval regarding agitation Transferred to [facility] Outpatient sleep study and pulmonary function testing KAYLAH OMALLEY MD, [facility] Mar 02, 2019 10:54
[2019-03-02 11:37] VITALS: BP 191/80; PULSE 83; RESP 22
[2019-03-02] MEDS: hydrALAzine 20 MG INJ IV PRN (12:15)
[2019-03-02] MEDS: VALPROIC ACID 250 MG CAP PO SCH ×2 (13:18→21:05)
--- NOTE | 2019-03-02 15:30 | PN ---
Date/Time of Note Date/Time of Note DATE: 03/02/19 TIME: 15:18 Assessment/Plan VTE Prophylaxis Risk score (from Ns)>0 risk: 6 SCD applied (from Ns): No SCD contraindicated: other (peripheral artery disease) Pharmacological prophylaxis: NA/contraindicated Pharm contraindication: anticoag not tolerated Lines/Catheters IV [facility]from [facility] Mid Line Urinary Cath still in place: Yes Reason Cath still needed: other (indicate) (not needed) Assessment/Plan Assessment/Plan 73 yo morbidly obese woman history of peripheral vascular disease, diabetes type II, CHF, likely COPD presents with acute respiratory failure due to CHF exacerbation. #Acute respiratory failure- - CTPA negative for PE - Likely CHF exacerbation. Echocardiogram performed 5 days ago, shows ejection fraction 35% - Extubated 02/25 - Now breathing comfortably on room air. - Continue oral lasix - Possible transfer to [place] vs home. #Peripheral vascular disease - Cont aspirin, plavix, statin #Diabetic/vascular right foot ulcer - Patient also has outpatient vascular followup - Patient has failed R sided revascularization in the past; per Vascular Dr Naidu repeat attempt at revascularization would be unwise. - No debridement planned. Patient finished a course of IV zosyn and vanco. #Diabetes type II, insulin dependent. - A1c= 9.7 - continue sliding scale insulin #CHF -continue low-dose beta-nabeel per cardiology recommendations -Continue PO lasix #History of DVT - LE duplex negative for DVT. - Not currently on anticoagulation - Should be discharge on Eliquis or Xarelto. 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 GI: famotidine DVT: None Result Diagram: 03/02/19 0520 03/02/19 0520 Subjective 24 Hr Interval Summary Free Text/Dictation According to the sitter, the patient intermittently tries to pull out her [place] and midline. She is otherwise awake and responsive. Breathing comfortably on room air. I also spoke at length to the patient granddaughter Ann, a respiratory therapist. She is apprehensive about a [place] transfer and would prefer the patient just stay in the hospital until discharge. Exam/Review of Systems Exam Vitals Vital Signs Date Temp Pulse Resp B/P (MAP) Pulse Ox O2 O2 Flow FiO2 Time Delivery Rate 03/02/19 98.0 83 22 191/80 96 Room Air 11:37 (117) 03/02/19 2.0 05:43 02/28/19 30 14:20 Intake and Output 03/01/19 03/01/19 03/02/19 1515:00 23:00 07:00 IntakeIntake Total 100 ml 250 ml 170 ml OutputOutput Total 2350 ml 1600 ml BalanceBalance 100 ml -2100 ml -1430 ml Exam Gen: Morbidly obese woman lying in bed, awake and alert. HEENT: Moist mucous membranes, clear oropharynx. Neck: Supple, no lymphadenopathy. Card: Regular rate and rhythm, no murmurs. Pulm: Slightly distant breath sounds bilaterally, no crackles Abd: Soft, nontender, nondistended. Hypoactive bowel sounds. 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 R leg with well healed bypass scar below the knee. Skin: R lower leg erythema has resolved. R foot with dry, clean based ulcer. Results Results 24hrs Laboratory Tests Test 03/01/19 17:18 03/01/19 21:02 03/02/19 05:20 03/02/19 07:41 Bedside Glucose 128 141 117 White Blood Count 8.1 # Red Blood Count 4.62 Hemoglobin 13.5 Hematocrit 42.7 Mean Corpuscular 92.4 Volume Mean Corpuscular 29.2 Hemoglobin Mean Corpuscular 31.6 L Hemoglobin Concent Red Cell 12.9 Distribution Width Platelet Count 474 H Mean Platelet Volume 10.2 Immature 0.200 Granulocytes % Neutrophils % 69.5 Lymphocytes % 13.5 L Monocytes % 9.8 Eosinophils % 5.6 Basophils % 1.4 Nucleated Red Blood 0.0 Cells % Immature 0.020 Granulocytes # Neutrophils # 5.6 Lymphocytes # 1.1 Monocytes # 0.8 Eosinophils # 0.5 Basophils # 0.1 Nucleated Red Blood 0.0 Cells # Sodium Level 148 H Potassium Level 3.9 Chloride Level 109 Carbon Dioxide Level 29 Anion Gap 10 Blood Urea Nitrogen 23 H Creatinine 1.32 H Est Glomerular Filtrat Rate mL/min Glucose Level 110 # Calcium Level 9.2 Magnesium Level 2.1 B-Type Natriuretic 4430 H Peptide Test 03/02/19 12:10 Bedside Glucose 203 Medications Medication Current Medications Ondansetron HCl (Zofran Inj) 4 mg Q6H PRN IV NAUSEA AND/OR VOMITING; Start 02/12/19 at 07:30 Ipratropium [place] (Atrovent Hfa) 2 puff Q2H RESP THERAPY PRN INH SHORTNESS OF BREATH; Start 02/12/19 at 07:30 Acetaminophen (Tylenol Liquid) 650 mg Q6H PRN PO PAIN LEVEL 1-3 OR FEVER Last administered on 02/28/19 18:27; Admin Dose 650 MG; Start 02/12/19 at 07:30 Acetaminophen (Tylenol Supp) 650 mg Q4H PRN [place] PAIN LEVEL 1-3 OR FEVER Last administered on 02/25/19 22:32; Admin Dose 650 MG; Start 02/12/19 at 07:30 Aspirin (Aspirin) 81 mg DAILY PO Last administered on 03/02/19 09:49; Admin Dose 81 MG; Start 02/12/19 at 09:00 Miscellaneous Information 1 ea NOTE XX ; Start 02/12/19 at 09:30 Glucose (Glutose) 15 gm Q15M PRN PO DECREASED GLUCOSE; Start 02/12/19 at 09:30 Glucose (Glutose) 22.5 gm Q15M PRN PO DECREASED GLUCOSE; Start 02/12/19 at 09:30 Dextrose (D50w Syringe) 25 ml Q15M PRN IV DECREASED GLUCOSE Last administered on 02/25/19at 16:03; Admin Dose 25 ML; Start 02/12/19 at 09:30 Dextrose (D50w Syringe) 50 ml Q15M PRN IV DECREASED GLUCOSE Last administered on 02/25/19at 19:58; Admin Dose 50 ML; Start 02/12/19 at 09:30 Glucagon (Glucagen) 1 mg Q15M PRN IM DECREASED GLUCOSE; Start 02/12/19 at 09:30 Glucose (Glutose) 15 gm Q15M PRN BUCCAL DECREASED GLUCOSE; Start 02/12/19 at 09:30 Sodium Hypochlorite (Dakins Diluted (40)) 1 applic DAILY TP Last administered on 03/02/19at 10:09; Admin Dose 1 APPLIC; Start 02/15/19 at 09:00 Albuterol/ Ipratropium (Duoneb) 3 ml Q2H RESP THERAPY PRN HHN SHORTNESS OF BREATH Last administered on 02/26/19at 12:13; Admin Dose 3 ML; Start 02/19/19 at 19:00 Nystatin (Nystatin Oint) 1 applic BID TOP Last administered on 03/02/19 09:49; Admin Dose 1 APPLIC; Start 02/21/19 at 09:00 Diphenhydramine HCl (Benadryl) 25 mg Q6H PRN PO ITCHING Last administered on 02/26/19 19:55; Admin Dose 25 MG; Start 02/23/19 at 11:00 Collagenase (Santyl) 1 applic BID TOP Last administered on 03/02/19 09:49; Admin Dose 1 APPLIC; Start 02/24/19 at 10:30 Zinc Sulfate (Zinc Sulfate) 220 mg DAILY PO Last administered on 03/02/19 09:50; Admin Dose 220 MG; Start 02/26/19 at 12:00 Multivitamins Therapeutic (Theragran) 1 tab DAILY PO Last administered on 03/02/19 09:49; Admin Dose 1 TAB; Start 02/26/19 at 12:00 Spironolactone (Aldactone) 25 mg DAILY PO Last administered on 03/02/19 09:50; Admin Dose 25 MG; Start 02/26/19 at 17:30 Labetalol HCl (Labetalol) 10 mg Q6 PRN IV ELEVATED BLOOD PRESSURE Last administered on 02/28/19 00:33; Admin Dose 10 MG; Start 02/27/19 at 01:30 Carvedilol (Coreg) 6.25 mg TID PO Last administered on 03/02/19 13:18; Admin Dose 6.25 MG; Start 02/27/19 at 13:00 Lisinopril (Zestril) 5 mg BID PO Last administered on 03/02/19 09:50; Admin Dose 5 MG; Start 02/27/19 at 21:00 Atorvastatin Calcium (Lipitor) 80 mg QHS PO Last administered on 03/01/19 21:05; Admin Dose 80 MG; Start 02/28/19 at 21:00 Clopidogrel Bisulfate (plaVIX) 75 mg DAILY PO Last administered on 03/02/19 09:49; Admin Dose 75 MG; Start 02/28/19 at 09:00 Insulin Glargine (Lantus) 18 units BID SC Last administered on 03/02/19 10:02; Admin Dose 18 UNITS; Start 02/28/19 at 09:00 Nicotine (Nicoderm 21 Mg/ 24hr) 1 patch DAILY TRANSDERM Last administered on 03/02/19 10:09; Admin Dose 1 PATCH; Start 02/28/19 at 09:00 Hydralazine HCl (Apresoline) 10 mg Q4H PRN IV ELEVATED BLOOD PRESSURE Last administered on 03/02/19 12:15; Admin Dose 10 MG; Start 02/28/19 at 03:30 Loperamide HCl (Imodium Cap) 2 mg QID PRN PO DIARRHEA; Start 02/28/19 at 09:00 Tramadol HCl (Ultram) 50 mg Q6H PRN PO MODERATE PAIN LEVEL 4-6 Last administered on 03/01/19 18:46; Admin Dose 50 MG; Start 02/28/19 at 20:30 Insulin Aspart (Novolog Insulin Pen) NOVOLOG *MODERATE* ALGORITHM WITH MEALS BEDTIME SC Last administered on 03/02/19 12:27; Admin Dose 4 UNIT; Start 03/01/19 at 08:00 Diagnostic Test (Pha) (Accu-Chek) 1 ea 02 XX Last administered on 03/01/19 02:00; Admin Dose 1 EA; Start 03/01/19 at 02:00 Famotidine (Pepcid) 20 mg DAILY PO Last administered on 03/02/19 09:49; Admin Dose 20 MG; Start 03/02/19 at 09:00 Valproic Acid (Depakene) 250 mg TID PO Last administered on 03/02/19 13:18; Admin Dose 250 MG; Start 03/02/19 at 13:00 Furosemide (Lasix) 40 mg BID DIURETICS PO ; Start 03/02/19 at 18:00 ANTON OZUNA MD Mar 02, 2019 15:28
[2019-03-02 16:27] VITALS: BP 147/93; PULSE 83; RESP 22
[2019-03-02] MEDS: FUROSEMIDE 40 MG TAB PO SCH (17:52)
--- NOTE | 2019-03-02 19:04 | CONS ---
Consult Date/Type/Reason Admit Date/Time Feb 12, 2019 at 04:44 Initial Consult Date 02/20/19 Type of Consultation: cv Requesting Provider: PATSY JONES Date/Time of Note DATE: 03/02/19 TIME: 19:03 Subjective Cardiology follow-up progress note Subjective: Case discussed with staff and telemetry was reviewed. Patient has remained in normal sinus rhythm Patient has remained confused again and is unable to provide reliable history to me Patient is less hypoxemic today Patient is extubated 02/25/19 blood pressure has remained stable /high now There is no report of any chest pain or pressure Objective: General: Obese female no acute distress HEENT: NC/AT. pupils are equal. round. NECK: Unable to assess for JVD. no stridor. CV: RRR. systolic murmur; no gallop or rubs. PULM: no wheezing minimal rhonchi. 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 Right leg wound noted neuro: Awake appears to be oriented x1 only Psych: calm rectal: deferred : Deferred Echocardiogram was personally reviewed which shows: Normal left ventricular cavity size. Mild concentric left ventricular hypertrophy. Moderate left ventricular systolic dysfunction. Ejection fraction is visually estimated at 35 %. Tissue Doppler/Mitral Doppler indices are consistent with impaired relaxation (Stage I diastolic dysfunction). Multiple segmental wall motion abnormalities. Mitral valve leaflets appear mildly thickened. Mild mitral annular calcification. Trace mitral regurgitation. Normal appearance and function of the tricuspid valve with trace physiologic regurgitation. Normal right ventricular systolic pressure. suboptimal study. Chest x-ray done 02/19/2019 shows: There is mild atelectasis at the lung bases, unchanged. Mild pulmonary edema is unchanged. The heart size is normal. There are small bilateral pleural effusions. There is no pneumothorax. cxr 02/22 reviewed 1. Interval decreased central pulmonary vascular congestion. 2. Stable cardiomegaly with aortic atherosclerosis. 3. Stable position of support devices. CXR 03/01 Cardiomegaly. Blunted bilateral costophrenic angles that may reflect small pleural effusions. Atelectasis versus minimal infiltrates in the perihilar left lower lobe. Scattered atelectasis in the remainder the lungs. Hypoinflated lungs. Objective Vitals Vital Signs Date Temp Pulse Resp B/P (MAP) Pulse Ox O2 O2 Flow FiO2 Time Delivery Rate 03/02/19 97.9 83 22 147/93 96 Room Air 16:27 (111) 03/02/19 2.0 08:20 02/28/19 30 14:20 Intake and Output 03/01/19 03/01/19 03/02/19 1515:00 23:00 07:00 IntakeIntake Total 100 ml 250 ml 170 ml OutputOutput Total 2350 ml 1600 ml BalanceBalance 100 ml -2100 ml -1430 ml Results/Medications Result Diagram: 03/02/1951903/02/19 0520 Results 24 hrs Laboratory Tests Test 03/01/19 21:02 03/02/19 05:20 03/02/19 07:41 03/02/19 12:10 Bedside Glucose 141 117 203 White Blood Count 8.1 # Red Blood Count 4.62 Hemoglobin 13.5 Hematocrit 42.7 Mean Corpuscular 92.4 Volume Mean Corpuscular 29.2 Hemoglobin Mean Corpuscular 31.6 L Hemoglobin Concent Red Cell 12.9 Distribution Width Platelet Count 474 H Mean Platelet Volume 10.2 Immature 0.200 Granulocytes % Neutrophils % 69.5 Lymphocytes % 13.5 L Monocytes % 9.8 Eosinophils % 5.6 Basophils % 1.4 Nucleated Red Blood 0.0 Cells % Immature 0.020 Granulocytes # Neutrophils # 5.6 Lymphocytes # 1.1 Monocytes # 0.8 Eosinophils # 0.5 Basophils # 0.1 Nucleated Red Blood 0.0 Cells # Sodium Level 148 H Potassium Level 3.9 Chloride Level 109 Carbon Dioxide Level 29 Anion Gap 10 Blood Urea Nitrogen 23 H Creatinine 1.32 H Est Glomerular Filtrat Rate mL/min Glucose Level 110 # Calcium Level 9.2 Magnesium Level 2.1 B-Type Natriuretic 4430 H Peptide Test 03/02/19 17:30 Bedside Glucose 100 Home Meds Reported Medications Insulin Glargine,Hum.rec.anlog (Basaglar Kwikpen U-100) 100 Unit/1 Ml Insul n.pen, 0-12 UNIT SC QHS for PER SLIDING SCALE, EA 02/12/19 Insulin Aspart* (Novolog Insulin Pen*) 100 Unit/Ml Soln, 0-12 SC .SLIDING SCALE AC, EA 02/12/19 Dulaglutide (Trulicity) 1.5 Mg/0.5 Ml Pen.injctr, 1.5 MG SQ WEEKLY 02/12/19 Aspirin* (Aspirin* Chew) 81 Mg Tab.chew, 81 MG PO DAILY, TAB.CHEW 02/12/19 Clopidogrel Bisulfate (Clopidogrel) 75 Mg Tablet, 1 TAB ORAL DAILY 02/12/19 Tramadol HCl (Tramadol HCl) 50 Mg Tablet, 1 TAB ORAL Q6 PRN for PAIN LEVEL 4-6 02/12/19 Arginine Hcl (Arginine Hcl) 1 Gm Powder, 1 GM MC DAILY 02/12/19 Sacubitril/Valsartan (Entresto 49 mg-51 mg Tablet) 1 Each Tablet, 1 TAB ORAL DAILY 02/12/19 Atorvastatin* (Atorvastatin*) 80 Mg Tablet, 1 TAB ORAL QHS 02/12/19 Carvedilol* (Carvedilol*) 25 Mg Tablet, 1 TAB ORAL BID 02/12/19 Spironolactone* (Aldactone*) 25 Mg Tablet, 12.5 MG PO QAM, #60 TAB 02/12/19 Ampicillin Sodium-Sulbactam Sodium (Unasyn*) 3 Gm Soln, 3 GM IVPB Q6, VIAL 02/12/19 Medications Current Medications Ondansetron HCl (Zofran Inj) 4 mg Q6H PRN IV NAUSEA AND/OR VOMITING; Start 02/12/19 at 07:30 Ipratropium [place] (Atrovent Hfa) 2 puff Q2H RESP THERAPY PRN INH SHORTNESS OF BREATH; Start 02/12/19 at 07:30 Acetaminophen (Tylenol Liquid) 650 mg Q6H PRN PO PAIN LEVEL 1-3 OR FEVER Last administered on 02/28/19at 18:27; Admin Dose 650 MG; Start 02/12/19 at 07:30 Aspirin (Aspirin) 81 mg DAILY PO Last administered on 03/02/19at 09:49; Admin Dose 81 MG; Start 02/12/19 at 09:00 Miscellaneous Information 1 ea NOTE XX ; Start 02/12/19 at 09:30 Glucose (Glutose) 15 gm Q15M PRN PO DECREASED GLUCOSE; Start 02/12/19 at 09:30 Glucose (Glutose) 22.5 gm Q15M PRN PO DECREASED GLUCOSE; Start 02/12/19 at 09:30 Dextrose (D50w Syringe) 25 ml Q15M PRN IV DECREASED GLUCOSE Last administered on 02/25/19 16:03; Admin Dose 25 ML; Start 02/12/19 at 09:30 Dextrose (D50w Syringe) 50 ml Q15M PRN IV DECREASED GLUCOSE Last administered on 02/25/19 19:58; Admin Dose 50 ML; Start 02/12/19 at 09:30 Glucagon (Glucagen) 1 mg Q15M PRN IM DECREASED GLUCOSE; Start 02/12/19 at 09:30 Glucose (Glutose) 15 gm Q15M PRN BUCCAL DECREASED GLUCOSE; Start 02/12/19 at 09:30 Sodium Hypochlorite (Dakins Diluted ()) 1 applic DAILY TP Last administered on 03/02/19 10:09; Admin Dose 1 APPLIC; Start 02/15/19 at 09:00 Albuterol/ Ipratropium (Duoneb) 3 ml Q2H RESP THERAPY PRN HHN SHORTNESS OF BREATH Last administered on 02/26/19 12:13; Admin Dose 3 ML; Start 02/19/19 at 19:00 Nystatin (Nystatin Oint) 1 applic BID TOP Last administered on 03/02/19 09:49; Admin Dose 1 APPLIC; Start 02/21/19 at 09:00 Diphenhydramine HCl (Benadryl) 25 mg Q6H PRN PO ITCHING Last administered on 02/26/19 19:55; Admin Dose 25 MG; Start 02/23/19 at 11:00 Collagenase (Santyl) 1 applic BID TOP Last administered on 03/02/19 09:49; A dmin Dose 1 APPLIC; Start 02/24/19 at 10:30 Zinc Sulfate (Zinc Sulfate) 220 mg DAILY PO Last administered on 03/02/19 09:50; Admin Dose 220 MG; Start 02/26/19 at 12:00 Multivitamins Therapeutic (Theragran) 1 tab DAILY PO Last administered on 03/02/19 09:49; Admin Dose 1 TAB; Start 02/26/19 at 12:00 Spironolactone (Aldactone) 25 mg DAILY PO Last administered on 03/02/19 09:50; Admin Dose 25 MG; Start 02/26/19 at 17:30 Labetalol HCl (Labetalol) 10 mg Q6 PRN IV ELEVATED BLOOD PRESSURE Last a dministered on 02/28/19 00:33; Admin Dose 10 MG; Start 02/27/19 at 01:30 Carvedilol (Coreg) 6.25 mg TID PO Last administered on 03/02/19 13:18; Admin Dose 6.25 MG; Start 02/27/19 at 13:00 Lisinopril (Zestril) 5 mg BID PO Last administered on 03/02/19 09:50; Admin Dose 5 MG; Start 02/27/19 at 21:00 Atorvastatin Calcium (Lipitor) 80 mg QHS PO Last administered on 03/01/19 21:05; Admin Dose 80 MG; Start 02/28/19 at 21:00 Clopidogrel Bisulfate (plaVIX) 75 mg DAILY PO Last administered on 03/02/19 09:49; Admin Dose 75 MG; Start 02/28/19 at 09:00 Insulin Glargine (Lantus) 18 units BID SC Last administered on 03/02/19 10:02; Admin Dose 18 UNITS; Start 02/28/19 at 09:00 Nicotine (Nicoderm 21 Mg/ 24hr) 1 patch DAILY TRANSDERM Last administered on 03/02/19 10:09; Admin Dose 1 PATCH; Start 02/28/19 at 09:00 Hydralazine HCl (Apresoline) 10 mg Q4H PRN IV ELEVATED BLOOD PRESSURE Last adm inistered on 03/02/19 12:15; Admin Dose 10 MG; Start 02/28/19 at 03:30 Loperamide HCl (Imodium Cap) 2 mg QID PRN PO DIARRHEA; Start 02/28/19 at 09:00 Tramadol HCl (Ultram) 50 mg Q6H PRN PO MODERATE PAIN LEVEL 4-6 Last administered on 03/01/19 18:46; Admin Dose 50 MG; Start 02/28/19 at 20:30 Insulin Aspart (Novolog Insulin Pen) NOVOLOG *MODERATE* ALGORITHM WITH MEALS BEDTIME SC Last administered on 03/02/19 12:27; Admin Dose 4 UNIT; Start 03/01/19 at 08:00 Diagnostic Test (Pha) (Accu-Chek) 1 ea 02 XX Last administered on 03/01/19 02:00; Admin Dose 1 EA; Start 03/01/19 at 02:00 Famotidine (Pepcid) 20 mg DAILY PO Last administered on 03/02/19at 09:49; Admin Dose 20 MG; Start 03/02/19 at 09:00 Valproic Acid (Depakene) 250 mg TID PO Last administered on 03/02/19at 13:18; Admin Dose 250 MG; Start 03/02/19 at 13:00 Furosemide (Lasix) 40 mg BID DIURETICS PO Last administered on 03/02/19at 17:52; Admin Dose 40 MG; Start 03/02/19 at 18:00 Assessment/Plan Hospital Course (Demo Recall) Acute hypoxemic respiratory failure status post intubation now extubated 02/25/19 Congestive heart failure: Acute on chronic secondary systolic heart failure Sepsis Coronary artery disease with history of [place] History of ischemic cardiomyopathy ejection fraction of 35% History of multiple PCI Severe peripheral vascular disease status post left leg amputation as well as right leg severe PAD Hypertension diabetes dyslipidemia Hyponatremia Acute kidney injury; improved now Recommendations: Continue with aspirin and Plavix Continue with PO LASIX NOW diabetic control as per internal medicine We will cont carvedilol and inc as needed/tolerated Antibiotic management as per internal medicine ID recommendations DVT prophylaxis GI prophylaxis as per internal medicine aldactone cont lisinopril replace electrolyte including potassium magnesium as needed Aspiration precaution Thank you for his referral. We will continue to follow along with you YOGI NICOLAS MD [facility] YOGI NICOLAS MD Mar 02, 2019 19:04
[2019-03-02 20:00] VITALS: BP 160/70; PULSE 95; RESP 20
[2019-03-02] MEDS: ATORVASTATIN 80 MG TAB PO SCH (21:51)
[2019-03-03] VITALS: BP 127/64; PULSE 92; RESP 24
[2019-03-03] MEDS: ACCU-CHEK XX SCH (02:00)
[2019-03-03 04:00] VITALS: BP 157/69; PULSE 91; RESP 22
[2019-03-03] MEDS: FUROSEMIDE 40 MG TAB PO SCH ×2 (05:56→17:43)
[2019-03-03 07:12] VITALS: BP 147/66; PULSE 89; RESP 19
[2019-03-03] MEDS: INSULIN ASPART [NOVOLOG] 3 ML PEN SC SCH ×4 (08:00→21:00)
[2019-03-03] MEDS: CLOPIDOGREL 75 MG TAB PO SCH (08:16)
[2019-03-03] MEDS: ZINC SULFATE 220 MG CAP PO SCH (08:16)
[2019-03-03] MEDS: FAMOTIDINE 20 MG TAB PO SCH (08:17)
[2019-03-03] MEDS: LISINOPRIL 5 MG TAB PO SCH ×2 (08:17→21:20)
[2019-03-03] MEDS: MULTIVITAMINS THERAPEUTIC TAB PO SCH (08:17)
[2019-03-03] MEDS: SPIRONOLACTONE 25 MG TAB PO SCH (08:17)
[2019-03-03] MEDS: ASPIRIN 81 MG TAB PO SCH (08:17)
[2019-03-03] MEDS: COLLAGENASE 5 GM (UD JAR) TOP SCH ×2 (08:18→21:24)
[2019-03-03] MEDS: BALSAM PERU/CASTOR OIL 60 GM TUBE TOP SCH ×2 (08:19→21:25)
[2019-03-03] MEDS: NICOTINE (21 MG/24 HR) PATCH TRANSDERM SCH (08:19)
[2019-03-03] MEDS: DAKINS 0.0125%(1/40) 473 ML SOLUTION TP SCH (08:19)
[2019-03-03] MEDS: NYSTATIN 15 GM OINT TOP SCH ×2 (08:20→21:24)
[2019-03-03] MEDS: INSULIN GLARGINE [LANTus] (100 UNITS/ML) SYG SC SCH ×2 (08:29→21:23)
[2019-03-03] MEDS: VALPROIC ACID 250 MG CAP PO SCH ×3 (09:04→21:32)
[2019-03-03] MEDS: traMADol 50 MG TAB PO PRN (10:12)
[2019-03-03 11:01] VITALS: BP 154/62; PULSE 83; RESP 20
--- NOTE | 2019-03-03 12:12 | PN ---
Date/Time of Note Date/Time of Note DATE: 03/03/19 TIME: 12:07 Assessment/Plan VTE Prophylaxis Risk score (from Nsg)>0 risk: 13 Pharmacological prophylaxis: NA/contraindicated Pharm contraindication: other Lines/Catheters IV Catheter Type (from Nrsg): Mid Line Urinary Cath still in place: No Assessment/Plan Hospital Course 73 yo morbidly obese woman history of peripheral vascular disease, diabetes type II, CHF, likely COPD presents with acute respiratory failure due to CHF exacerba tion. #Acute respiratory failure- - CTPA negative for PE - Likely CHF exacerbation. Echocardiogram performed 5 days ago, shows ejection fraction 35% - Extubated 02/25 - Now breathing comfortably on room air. - Continue oral lasix - Possible transfer to [place] vs home. #Peripheral vascular disease - Cont aspirin, plavix, statin #Diabetic/vascular right foot ulcer - Patient also has outpatient vascular followup - Patient has failed R sided revascularization in the past; per Vascular Dr Naidu repeat attempt at revascularization would be unwise. - No debridement planned. Patient finished a course of IV zosyn and vanco. #Diabetes type II, insulin dependent. - A1c= 9.7 - continue sliding scale insulin #CHF -continue low-dose beta-nabeel per cardiology recommendations -Continue PO lasix #History of DVT - LE duplex negative for DVT. - Not currently on anticoagulation - Should be discharge on Eliquis or Xarelto. 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 GI: famotidine DVT: None DC planning: Patient is stable enough to return home, need to discuss whether or not family is capable of caring for patient, have tried to call daughter today with no success, executive secretary social welfare consultation placed to evaluate whether or not it is safe for patient to return home Result Diagram: 03/02/19 0520 03/02/19 0520 Results 24hrs Laboratory Tests Test 03/02/19 12:10 03/02/19 17:30 03/02/19 21:10 03/03/19 08:15 Bedside Glucose 203 100 167 110 Test 03/03/19 11:47 Bedside Glucose 144 Subjective 24 Hr Interval Summary Constitutional: no complaints Exam/Review of Systems Exam Vitals Vital Signs Date Temp Pulse Resp B/P (MAP) Pulse Ox O2 O2 Flow FiO2 Time Delivery Rate 03/03/19 98.0 83 20 154/62 97 11:01 (92) 7/27/19 Nasal 08:00 Cannula 03/02/19 2.0 08:20 02/28/19 30 14:20 Intake and Output 03/02/19 03/02/19 03/03/19 1515:00 23:00 07:00 IntakeIntake Total 350 ml 860 ml 100 ml OutputOutput Total 2700 ml BalanceBalance 350 ml -1840 ml 100 ml Constitutional: alert, oriented Respiratory: clear to auscultation Cardiovascular: regular rate and rhythm Gastrointestinal: soft; No distended Musculoskeletal: No nl extremities to inspection Results Results 24hrs Laboratory Tests Test 03/02/19 12:10 03/02/19 17:30 03/02/19 21:10 03/03/19 08:15 Bedside Glucose 203 100 167 110 Test 03/03/19 11:47 Bedside Glucose 144 Medications Medication Current Medications Ondansetron HCl (Zofran Inj) 4 mg Q6H PRN IV NAUSEA AND/OR VOMITING; Start 02/12/19 at 07:30 Ipratropium [place] (Atrovent Hfa) 2 puff Q2H RESP THERAPY PRN INH SHORTNESS OF BREATH; Start 02/12/19 at 07:30 Acetaminophen (Tylenol Liquid) 650 mg Q6H PRN PO PAIN LEVEL 1-3 OR FEVER Last administered on 02/28/19at 18:27; Admin Dose 650 MG; Start 02/12/19 at 07:30 Aspirin (Aspirin) 81 mg DAILY PO Last administered on 03/03/19at 08:17; Admin Dose 81 MG; Start 02/12/19 at 09:00 Miscellaneous Information 1 ea NOTE XX ; Start 02/12/19 at 09:30 Glucose (Glutose) 15 gm Q15M PRN PO DECREASED GLUCOSE; Start 02/12/19 at 09:30 Glucose (Glutose) 22.5 gm Q15M PRN PO DECREASED GLUCOSE; Start 02/12/19 at 09:30 Dextrose (D50w Syringe) 25 ml Q15M PRN IV DECREASED GLUCOSE Last administered on 02/25/19at 16:03; Admin Dose 25 ML; Start 02/12/19 at 09:30 Dextrose (D50w Syringe) 50 ml Q15M PRN IV DECREASED GLUCOSE Last administered on 02/25/19at 19:58; Admin Dose 50 ML; Start 02/12/19 at 09:30 Glucagon (Glucagen) 1 mg Q15M PRN IM DECREASED GLUCOSE; Start 02/12/19 at 09:30 Glucose (Glutose) 15 gm Q15M PRN BUCCAL DECREASED GLUCOSE; Start 02/12/19 at 09:30 Sodium Hypochlorite (Dakins Diluted ()) 1 applic DAILY TP Last administered on 03/03/19 08:19; Admin Dose 1 APPLIC; Start 02/15/19 at 09:00 Albuterol/ Ipratropium (Duoneb) 3 ml Q2H RESP THERAPY PRN HHN SHORTNESS OF BREATH Last administered on 02/26/19 12:13; Admin Dose 3 ML; Start 02/19/19 at 19:00 Nystatin (Nystatin Oint) 1 applic BID TOP Last administered on 03/03/19 08:20; Admin Dose 1 APPLIC; Start 02/21/19 at 09:00 Diphenhydramine HCl (Benadryl) 25 mg Q6H PRN PO ITCHING Last administered on 02/26/19at 19:55; Admin Dose 25 MG; Start 02/23/19 at 11:00 Collagenase (Santyl) 1 applic BID TOP Last administered on 03/03/19 08:18; Admin Dose 1 APPLIC; Start 02/24/19 at 10:30 Zinc Sulfate (Zinc Sulfate) 220 mg DAILY PO Last administered on 03/03/19at 0 8:16; Admin Dose 220 MG; Start 02/26/19 at 12:00 Multivitamins Therapeutic (Theragran) 1 tab DAILY PO Last administered on 03/03/19 08:17; Admin Dose 1 TAB; Start 02/26/19 at 12:00 Spironolactone (Aldactone) 25 mg DAILY PO Last administered on 03/03/19 08:17; Admin Dose 25 MG; Start 02/26/19 at 17:30 Labetalol HCl (Labetalol) 10 mg Q6 PRN IV ELEVATED BLOOD PRESSURE Last administered on 02/28/19 00:33; Admin Dose 10 MG; Start 02/27/19 at 01:30 Carvedilol (Coreg) 6.25 mg TID PO Last administered on 03/03/19 08:18; Admin Dose 6.25 MG; Start 02/27/19 at 13:00 Lisinopril (Zestril) 5 mg BID PO Last administered on 03/03/19 08:17; Admin Dose 5 MG; Start 02/27/19 at 21:00 Atorvastatin Calcium (Lipitor) 80 mg QHS PO Last administered on 03/02/19 21:51; Admin Dose 80 MG; Start 02/28/19 at 21:00 Clopidogrel Bisulfate (plaVIX) 75 mg DAILY PO Last administered on 03/03/19 08:16; Admin Dose 75 MG; Start 02/28/19 at 09:00 Insulin Glargine (Lantus) 18 units BID SC Last administered on 03/03/19 08:29; Admin Dose 18 UNITS; Start 02/28/19 at 09:00 Nicotine (Nicoderm 21 Mg/ 24hr) 1 patch DAILY TRANSDERM Last administered on 03/03/19 08:19; Admin Dose 1 PATCH; Start 02/28/19 at 09:00 Hydralazine HCl (Apresoline) 10 mg Q4H PRN IV ELEVATED BLOOD PRESSURE Last administered on 03/02/19 12:15; Admin Dose 10 MG; Start 02/28/19 at 03:30 Loperamide HCl (Imodium Cap) 2 mg QID PRN PO DIARRHEA; Start 02/28/19 at 09:00 Tramadol HCl (Ultram) 50 mg Q6H PRN PO MODERATE PAIN LEVEL 4-6 Last administered on 03/03/19 10:12; Admin Dose 50 MG; Start 02/28/19 at 20:30 Insulin Aspart (Novolog Insulin Pen) NOVOLOG *MODERATE* ALGORITHM WITH MEALS BEDTIME SC Last administered on 03/03/19 11:52; Admin Dose 2 UNIT; Start 03/01/19 at 08:00 Diagnostic Test (Pha) (Accu-Chek) 1 ea 02 XX Last administered on 03/01/19 02:00; Admin Dose 1 EA; Start 03/01/19 at 02:00 Famotidine (Pepcid) 20 mg DAILY PO Last administered on 03/03/19 08:17; Admin Dose 20 MG; Start 03/02/19 at 09:00 Valproic Acid (Depakene) 250 mg TID PO Last administered on 03/03/19 09:04; Admin Dose 250 MG; Start 03/02/19 at 13:00 Furosemide (Lasix) 40 mg BID DIURETICS PO Last administered on 03/03/19at 05:56; Admin Dose 40 MG; Start 03/02/19 at 18:00 EDVIN PANTOJA Mar 03, 2019 12:12
--- NOTE | 2019-03-03 14:50 | CONS ---
Consult Date/Type/Reason Admit Date/Time Feb 12, 2019 at 04:44 Initial Consult Date 02/20/19 Type of Consultation: cv Requesting Provider: PATSY JONES Date/Time of Note DATE: 03/03/19 TIME: 14:46 Subjective Cardiology follow-up progress note Subjective: Case discussed with staff and telemetry was reviewed. Patient has remained in normal sinus rhythm Patient has remained confused again and is unable to provide reliable history to me Patient is less hypoxemic today d/w grandson Patient is extubated 02/25/19 blood pressure has remained stable /high now There is no report of any chest pain or pressure Objective: General: Obese female no acute distress HEENT: NC/AT. pupils are equal. round. NECK: Unable to assess for JVD. no stridor. CV: RRR. systolic murmur; no gallop or rubs. PULM: no wheezing minimal rhonchi. 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 Right leg wound noted neuro: Awake appears to be oriented x1 only Psych: calm rectal: deferred : Deferred Echocardiogram was personally reviewed which shows: Normal left ventricular cavity size. Mild concentric left ventricular hypertrophy. Moderate left ventricular systolic dysfunction. Ejection fraction is visually estimated at 35 %. Tissue Doppler/Mitral Doppler indices are consistent with impaired relaxation (Stage I diastolic dysfunction). Multiple segmental wall motion abnormalities. Mitral valve leaflets appear mildly thickened. Mild mitral annular calcification. Trace mitral regurgitation. Normal appearance and function of the tricuspid valve with trace physiologic regurgitation. Normal right ventricular systolic pressure. suboptimal study. Chest x-ray done 02/19/2019 shows: There is mild atelectasis at the lung bases, unchanged. Mild pulmonary edema is unchanged. The heart size is normal. There are small bilateral pleural effusions. There is no pneumothorax. cxr 02/22 reviewed 1. Interval decreased central pulmonary vascular congestion. 2. Stable cardiomegaly with aortic atherosclerosis. 3. Stable position of support devices. CXR 03/01 Cardiomegaly. Blunted bilateral costophrenic angles that may reflect small pleural effusions. Atelectasis versus minimal infiltrates in the perihilar left lower lobe. Scattered atelectasis in the remainder the lungs. Hypoinflated lungs. Objective Vitals Vital Signs Date Temp Pulse Resp B/P (MAP) Pulse Ox O2 O2 Flow FiO2 Time Delivery Rate 03/03/19 98.0 83 20 154/62 97 11:01 (92) 03/03/19 Nasal 08:00 Cannula 03/02/19 2.0 08:20 02/28/19 30 14:20 Intake and Output 03/02/19 03/02/19 03/03/19 1515:00 23:00 07:00 IntakeIntake Total 350 ml 860 ml 100 ml OutputOutput Total 2700 ml BalanceBalance 350 ml -1840 ml 100 ml Results/Medications Result Diagram: 03/02/1920 03/02/19519 Results 24 hrs Laboratory Tests Test 03/02/19 17:30 03/02/19 21:10 03/03/19 08:15 03/03/19 11:47 Bedside Glucose 100 167 110 144 Home Meds Reported Medications Insulin Glargine,Hum.rec.anlog (Basaglar Kwikpen U-100) 100 Unit/1 Ml In suln.pen, 0-12 UNIT SC QHS for PER SLIDING SCALE, EA 02/12/19 Insulin Aspart* (Novolog Insulin Pen*) 100 Unit/Ml Soln, 0-12 SC .SLIDING SCALE AC, EA 02/12/19 Dulaglutide (Trulicity) 1.5 Mg/0.5 Ml Pen.injctr, 1.5 MG SQ WEEKLY 02/12/19 Aspirin* (Aspirin* Chew) 81 Mg Tab.chew, 81 MG PO DAILY, TAB.CHEW 02/12/19 Clopidogrel Bisulfate (Clopidogrel) 75 Mg Tablet, 1 TAB ORAL DAILY 02/12/19 Tramadol HCl (Tramadol HCl) 50 Mg Tablet, 1 TAB ORAL Q6 PRN for PAIN LEVEL 4-6 02/12/19 Arginine Hcl (Arginine Hcl) 1 Gm Powder, 1 GM MC DAILY 02/12/19 Sacubitril/Valsartan (Entresto 49 mg-51 mg Tablet) 1 Each Tablet, 1 TAB ORAL DAILY 02/12/19 Atorvastatin* (Atorvastatin*) 80 Mg Tablet, 1 TAB ORAL QHS 02/12/19 Carvedilol* (Carvedilol*) 25 Mg Tablet, 1 TAB ORAL BID 02/12/19 Spironolactone* (Aldactone*) 25 Mg Tablet, 12.5 MG PO QAM, #60 TAB 02/12/19 Ampicillin Sodium-Sulbactam Sodium (Unasyn*) 3 Gm Soln, 3 GM IVPB Q6, VIAL 02/12/19 Medications Current Medications Ondansetron HCl (Zofran Inj) 4 mg Q6H PRN IV NAUSEA AND/OR VOMITING; Start 02/12/19 at 07:30 Ipratropium [place] (Atrovent Hfa) 2 puff Q2H RESP THERAPY PRN INH SHORTNESS OF BREATH; Start 02/12/19 at 07:30 Acetaminophen (Tylenol Liquid) 650 mg Q6H PRN PO PAIN LEVEL 1-3 OR FEVER Last a dministered on 02/28/19at 18:27; Admin Dose 650 MG; Start 02/12/19 at 07:30 Aspirin (Aspirin) 81 mg DAILY PO Last administered on 03/03/19at 08:17; Admin Dose 81 MG; Start 02/12/19 at 09:00 Miscellaneous Information 1 ea NOTE XX ; Start 02/12/19 at 09:30 Glucose (Glutose) 15 gm Q15M PRN PO DECREASED GLUCOSE; Start 02/12/19 at 09:30 Glucose (Glutose) 22.5 gm Q15M PRN PO DECREASED GLUCOSE; Start 02/12/19 at 09:30 Dextrose (D50w Syringe) 25 ml Q15M PRN IV DECREASED GLUCOSE Last administered on 02/25/19at 16:03; Admin Dose 25 ML; Start 02/12/19 at 09:30 Dextrose (D50w Syringe) 50 ml Q15M PRN IV DECREASED GLUCOSE Last administered on 02/25/19at 19:58; Admin Dose 50 ML; Start 02/12/19 at 09:30 Glucagon (Glucagen) 1 mg Q15M PRN IM DECREASED GLUCOSE; Start 02/12/19 at 09:30 Glucose (Glutose) 15 gm Q15M PRN BUCCAL DECREASED GLUCOSE; Start 02/12/19 at 09:30 Sodium Hypochlorite (Dakins Diluted ()) 1 applic DAILY TP Last administered on 03/03/19at 08:19; Admin Dose 1 APPLIC; Start 02/15/19 at 09:00 Albuterol/ Ipratropium (Duoneb) 3 ml Q2H RESP THERAPY PRN HHN SHORTNESS OF BREATH Last administered on 02/26/19 12:13; Admin Dose 3 ML; Start 02/19/19 at 19:00 Nystatin (Nystatin Oint) 1 applic BID TOP Last administered on 03/03/19 08:20; Admin Dose 1 APPLIC; Start 02/21/19 at 09:00 Diphenhydramine HCl (Benadryl) 25 mg Q6H PRN PO ITCHING Last administered on 02/26/19 19:55; Admin Dose 25 MG; Start 02/23/19 at 11:00 Collagenase (Santyl) 1 applic BID TOP Last administered on 03/03/19 08:18; Admin Dose 1 APPLIC; Start 02/24/19 at 10:30 Zinc Sulfate (Zinc Sulfate) 220 mg DAILY PO Last administered on 03/03/19 08:16; Admin Dose 220 MG; Start 02/26/19 at 12:00 Multivitamins Therapeutic (Theragran) 1 tab DAILY PO Last administered on 03/03/19 08:17; Admin Dose 1 TAB; Start 02/26/19 at 12:00 Spironolactone (Aldactone) 25 mg DAILY PO Last administered on 03/03/19 08:17; Admin Dose 25 MG; Start 02/26/19 at 17:30 Labetalol HCl (Labetalol) 10 mg Q6 PRN IV ELEVATED BLOOD PRESSURE Last administered on 02/28/19 00:33; Admin Dose 10 MG; Start 02/27/19 at 01:30 Carvedilol (Coreg) 6.25 mg TID PO Last administered on 03/03/19 13:20; Admin Dose 6.25 MG; Start 02/27/19 at 13:00 Lisinopril (Zestril) 5 mg BID PO Last administered on 03/03/19 08:17; Admin Dose 5 MG; Start 02/27/19 at 21:00 Atorvastatin Calcium (Lipitor) 80 mg QHS PO Last administered on 03/02/19 21:51; Admin Dose 80 MG; Start 02/28/19 at 21:00 Clopidogrel Bisulfate (plaVIX) 75 mg DAILY PO Last administered on 03/03/19 08:16; Admin Dose 75 MG; Start 02/28/19 at 09:00 Insulin Glargine (Lantus) 18 units BID SC Last administered on 03/03/19 08:29; Admin Dose 18 UNITS; Start 02/28/19 at 09:00 Nicotine (Nicoderm 21 Mg/ 24hr) 1 patch DAILY TRANSDERM Last administered on 03/03/19 08:19; Admin Dose 1 PATCH; Start 02/28/19 at 09:00 Hydralazine HCl (Apresoline) 10 mg Q4H PRN IV ELEVATED BLOOD PRESSURE Last administered on 03/02/19 12:15; Admin Dose 10 MG; Start 02/28/19 at 03:30 Loperamide HCl (Imodium Cap) 2 mg QID PRN PO DIARRHEA; Start 02/28/19 at 09:00 Tramadol HCl (Ultram) 50 mg Q6H PRN PO MODERATE PAIN LEVEL 4-6 Last administered on 03/03/19 10:12; Admin Dose 50 MG; Start 02/28/19 at 20:30 Insulin Aspart (Novolog Insulin Pen) NOVOLOG *MODERATE* ALGORITHM WITH MEALS BEDTIME SC Last administered on 03/03/19 11:52; Admin Dose 2 UNIT; Start 03/01/19 at 08:00 Diagnostic Test (Pha) (Accu-Chek) 1 ea 02 XX Last administered on 03/01/19 02:00; Admin Dose 1 EA; Start 03/01/19 at 02:00 Famotidine (Pepcid) 20 mg DAILY PO Last administered on 03/03/19 08:17; Admin Dose 20 MG; Start 03/02/19 at 09:00 Valproic Acid (Depakene) 250 mg TID PO Last administered on 03/03/19 13:20; Admin Dose 250 MG; Start 03/02/19 at 13:00 Furosemide (Lasix) 40 mg BID DIURETICS PO Last administered on 03/03/19 05:56; Admin Dose 40 MG; Start 03/02/19 at 18:00 Assessment/Plan Hospital Course (Demo Recall) Acute hypoxemic respiratory failure status post intubation now extubated 02/25/19 Congestive heart failure: Acute on chronic secondary systolic heart failure Sepsis Coronary artery disease with history of DC History of ischemic cardiomyopathy ejection fraction of 35% History of multiple PCI Severe peripheral vascular disease status post left leg amputation as well as right leg severe PAD Hypertension diabetes dyslipidemia Hyponatremia Acute kidney injury; improved now Recommendations: Continue with aspirin and Plavix Continue with PO LASIX NOW diabetic control as per internal medicine We will cont carvedilol and inc as needed/tolerated Antibiotic management as per internal medicine ID recommendations DVT prophylaxis GI prophylaxis as per internal medicine cont aldactone cont lisinopril replace electrolyte including potassium magnesium as needed Aspiration precaution check labs in AM Thank you for his referral. We will continue to follow along with you YOGI NICOLAS MD [facility] YOGI NICOLAS MD Mar 03, 2019 14:50
[2019-03-03 15:19] VITALS: BP 158/72; PULSE 78; RESP 20
--- NOTE | 2019-03-03 17:21 | CONS ---
Consult Date/Type/Reason Admit Date/Time Feb 12, 2019 at 04:44 Initial Consult Date 02/20/19 Type of Consultation: Pulm Requesting Provider: PATSY JONES Date/Time of Note DATE: 03/03/19 TIME: 17:19 Subjective Confused. No overnight events noted. Objective Vitals Vital Signs Date Temp Pulse Resp B/P (MAP) Pulse Ox O2 O2 Flow FiO2 Time Delivery Rate 03/03/19 98.1 78 20 158/72 99 15:19 (100) 03/03/19 Nasal 08:00 Cannula 03/02/19 2.0 08:20 02/28/19 30 14:20 Intake and Output 03/02/19 03/02/19 03/03/19 1515:00 23:00 07:00 IntakeIntake Total 350 ml 860 ml 100 ml OutputOutput Total 2700 ml BalanceBalance 350 ml -1840 ml 100 ml Exam NECK: Supple. No JVD or lymphadenopathy. CARDIAC EXAM: S1, S2. No added sounds or murmurs. CHEST: Diminished air entry bilaterally ABDOMEN: Soft, nontender. No guarding or rebound. EXTREMITIES: No cyanosis, clubbing edema +2 NEUROLOGIC: Generalized weakness. No focal deficits Results/Medications Result Diagram: 03/02/1951903/02/19519 Results 24 hrs Laboratory Tests Test 03/02/19 17:30 03/02/19 21:10 03/03/19 08:15 03/03/19 11:47 Bedside Glucose 100 167 110 144 Home Meds Reported Medications Insulin Glargine,Hum.rec.anlog ([place] U-100) 100 Unit/1 Ml Insuln.pen, 0-12 UNIT SC QHS for PER SLIDING SCALE, EA 02/12/19 Insulin Aspart* (Novolog Insulin Pen*) 100 Unit/Ml Soln, 0-12 SC .SLIDING SCALE AC, EA 02/12/19 Dulaglutide (Trulicity) 1.5 Mg/0.5 Ml Pen.injctr, 1.5 MG SQ WEEKLY 02/12/19 Aspirin* (Aspirin* Chew) 81 Mg Tab.chew, 81 MG PO DAILY, TAB.CHEW 02/12/19 Clopidogrel Bisulfate (Clopidogrel) 75 Mg Tablet, 1 TAB ORAL DAILY 02/12/19 Tramadol HCl (Tramadol HCl) 50 Mg Tablet, 1 TAB ORAL Q6 PRN for PAIN LEVEL 4-6 02/12/19 Arginine Hcl (Arginine Hcl) 1 Gm Powder, 1 GM MC DAILY 02/12/19 Sacubitril/Valsartan (Entresto 49 mg-51 mg Tablet) 1 Each Tablet, 1 TAB ORAL DAILY 02/12/19 Atorvastatin* (Atorvastatin*) 80 Mg Tablet, 1 TAB ORAL QHS 02/12/19 Carvedilol* (Carvedilol*) 25 Mg Tablet, 1 TAB ORAL BID 02/12/19 Spironolactone* (Aldactone*) 25 Mg Tablet, 12.5 MG PO QAM, #60 TAB 02/12/19 Ampicillin Sodium-Sulbactam Sodium (Unasyn*) 3 Gm Soln, 3 GM IVPB Q6, VIAL 02/12/19 Medications Current Medications Ondansetron HCl (Zofran Inj) 4 mg Q6H PRN IV NAUSEA AND/OR VOMITING; Start 02/12/19 at 07:30 Ipratropium [place] (Atrovent Hfa) 2 puff Q2H RESP THERAPY PRN INH SHORTNESS OF BREATH; Start 02/12/19 at 07:30 Acetaminophen (Tylenol Liquid) 650 mg Q6H PRN PO PAIN LEVEL 1-3 OR FEVER Last administered on 02/28/19at 18:27; Admin Dose 650 MG; Start 02/12/19 at 07:30 Aspirin (Aspirin) 81 mg DAILY PO Last administered on 03/03/19at 08:17; Admin Dose 81 MG; Start 02/12/19 at 09:00 Miscellaneous Information 1 ea NOTE XX ; Start 02/12/19 at 09:30 Glucose (Glutose) 15 gm Q15M PRN PO DECREASED GLUCOSE; Start 02/12/19 at 09:30 Glucose (Glutose) 22.5 gm Q15M PRN PO DECREASED GLUCOSE; Start 02/12/19 at 09:30 Dextrose (D50w Syringe) 25 ml Q15M PRN IV DECREASED GLUCOSE Last administered on 02/25/19at 16:03; Admin Dose 25 ML; Start 02/12/19 at 09:30 Dextrose (D50w Syringe) 50 ml Q15M PRN IV DECREASED GLUCOSE Last administered on 02/25/19at 19:58; Admin Dose 50 ML; Start 02/12/19 at 09:30 Glucagon (Glucagen) 1 mg Q15M PRN IM DECREASED GLUCOSE; Start 02/12/19 at 09:30 Glucose (Glutose) 15 gm Q15M PRN BUCCAL DECREASED GLUCOSE; Start 02/12/19 at 09:30 Sodium Hypochlorite (Dakins Diluted ()) 1 applic DAILY TP Last administered on 03/03/19 08:19; Admin Dose 1 APPLIC; Start 02/15/19 at 09:00 Albuterol/ Ipratropium (Duoneb) 3 ml Q2H RESP THERAPY PRN HHN SHORTNESS OF BREATH Last administered on 02/26/19 12:13; Admin Dose 3 ML; Start 02/19/19 at 19:00 Nystatin (Nystatin Oint) 1 applic BID TOP Last administered on 03/03/19 08:20; Admin Dose 1 APPLIC; Start 02/21/19 at 09:00 Diphenhydramine HCl (Benadryl) 25 mg Q6H PRN PO ITCHING Last administered on 02/26/19 19:55; Admin Dose 25 MG; Start 02/23/19 at 11:00 Collagenase (Santyl) 1 applic BID TOP Last administered on 03/03/19 08:18; Admin Dose 1 APPLIC; Start 02/24/19 at 10:30 Zinc Sulfate (Zinc Sulfate) 220 mg DAILY PO Last administered on 03/03/19 08:16; Admin Dose 220 MG; Start 02/26/19 at 12:00 Multivitamins Therapeutic (Theragran) 1 tab DAILY PO Last administered on 03/03/19 08:17; Admin Dose 1 TAB; Start 02/26/19 at 12:00 Spironolactone (Aldactone) 25 mg DAILY PO Last administered on 03/03/19 08:17; Admin Dose 25 MG; Start 02/26/19 at 17:30 Labetalol HCl (Labetalol) 10 mg Q6 PRN IV ELEVATED BLOOD PRESSURE Last administered on 02/28/19 00:33; Admin Dose 10 MG; Start 02/27/19 at 01:30 Carvedilol (Coreg) 6.25 mg TID PO Last administered on 03/03/19 13:20; Admin Dose 6.25 MG; Start 02/27/19 at 13:00 Lisinopril (Zestril) 5 mg BID PO Last administered on 03/03/19 08:17; Admin Dose 5 MG; Start 02/27/19 at 21:00 Atorvastatin Calcium (Lipitor) 80 mg QHS PO Last administered on 03/02/19 21:51; Admin Dose 80 MG; Start 02/28/19 at 21:00 Clopidogrel Bisulfate (plaVIX) 75 mg DAILY PO Last administered on 03/03/19 08:16; Admin Dose 75 MG; Start 02/28/19 at 09:00 Insulin Glargine (Lantus) 18 units BID SC Last administered on 03/03/19 08:29; Admin Dose 18 UNITS; Start 02/28/19 at 09:00 Nicotine (Nicoderm 21 Mg/ 24hr) 1 patch DAILY TRANSDERM Last administered on 03/03/19 08:19; Admin Dose 1 PATCH; Start 02/28/19 at 09:00 Hydralazine HCl (Apresoline) 10 mg Q4H PRN IV ELEVATED BLOOD PRESSURE Last administered on 03/02/19 12:15; Admin Dose 10 MG; Start 02/28/19 at 03:30 Loperamide HCl (Imodium Cap) 2 mg QID PRN PO DIARRHEA; Start 02/28/19 at 09:00 Tramadol HCl (Ultram) 50 mg Q6H PRN PO MODERATE PAIN LEVEL 4-6 Last administered on 03/03/19 10:12; Admin Dose 50 MG; Start 02/28/19 at 20:30 Insulin Aspart (Novolog Insulin Pen) NOVOLOG *MODERATE* ALGORITHM WITH MEALS BEDTIME SC Last administered on 03/03/19 11:52; Admin Dose 2 UNIT; Start 03/01/19 at 08:00 Diagnostic Test (Pha) (Accu-Chek) 1 ea 02 XX Last administered on 03/01/19 02:00; Admin Dose 1 EA; Start 03/01/19 at 02:00 Famotidine (Pepcid) 20 mg DAILY PO Last administered on 03/03/19 08:17; Admin Dose 20 MG; Start 03/02/19 at 09:00 Valproic Acid (Depakene) 250 mg TID PO Last administered on 03/03/19 13:20; Admin Dose 250 MG; Start 03/02/19 at 13:00 Furosemide (Lasix) 40 mg BID DIURETICS PO Last administered on 03/03/19at 05:56; Admin Dose 40 MG; Start 03/02/19 at 18:00 Assessment/Plan Assessment/Plan (Daily) IMP 1. s/p Acute hypoxemic respiratory failure 2. Likely acute tracheobronchitis with congestive cardiac failure 3. Peripheral vascular disease 4. History of diabetes mellitus 5. History of coronary artery disease status post coronary intervention 6. Encephalopathy toxic metabolic RECS: 1. Aspiration precautions 2. Increase free H20 3. BDs/CPT MARCO Carmichael MD Mar 03, 2019 17:21
[2019-03-03 20:00] VITALS: BP 169/78; PULSE 76; RESP 18
[2019-03-03] MEDS: ATORVASTATIN 80 MG TAB PO SCH (21:21)
[2019-03-04] VITALS (7 sets, daily range): BP systolic 116–181; BP diastolic 58–74; PULSE 67–84; RESP 18–20
[2019-03-04] MEDS: ACCU-CHEK XX SCH (02:00)
[2019-03-04] MEDS: FUROSEMIDE 40 MG TAB PO SCH ×2 (06:00→17:55)
[2019-03-04] MEDS: INSULIN ASPART [NOVOLOG] 3 ML PEN SC SCH ×4 (08:00→21:00)
[2019-03-04] MEDS: SPIRONOLACTONE 25 MG TAB PO SCH (08:52)
[2019-03-04] MEDS: ASPIRIN 81 MG TAB PO SCH (08:52)
[2019-03-04] MEDS: ZINC SULFATE 220 MG CAP PO SCH (08:53)
[2019-03-04] MEDS: MULTIVITAMINS THERAPEUTIC TAB PO SCH (08:53)
[2019-03-04] MEDS: LISINOPRIL 5 MG TAB PO SCH ×2 (08:53→22:04)
[2019-03-04] MEDS: CLOPIDOGREL 75 MG TAB PO SCH (08:53)
[2019-03-04] MEDS: FAMOTIDINE 20 MG TAB PO SCH (08:53)
[2019-03-04] MEDS: VALPROIC ACID 250 MG CAP PO SCH ×3 (08:54→22:02)
[2019-03-04] MEDS: COLLAGENASE 5 GM (UD JAR) TOP SCH ×2 (08:54→21:00)
[2019-03-04] MEDS: DAKINS 0.0125%(1/40) 473 ML SOLUTION TP SCH (08:55)
[2019-03-04] MEDS: NICOTINE (21 MG/24 HR) PATCH TRANSDERM SCH (08:55)
[2019-03-04] MEDS: BALSAM PERU/CASTOR OIL 60 GM TUBE TOP SCH ×2 (08:56→21:00)
[2019-03-04] MEDS: INSULIN GLARGINE [LANTus] (100 UNITS/ML) SYG SC SCH ×2 (08:56→22:09)
[2019-03-04] MEDS: NYSTATIN 15 GM OINT TOP SCH ×2 (08:57→21:00)
[2019-03-04] MEDS: hydrALAzine 20 MG INJ IV PRN (10:15)
--- NOTE | 2019-03-04 14:20 | PN ---
Date/Time of Note Date/Time of Note DATE: 03/04/19 TIME: 14:19 Assessment/Plan VTE Prophylaxis Risk score (from Nsg)>0 risk: 10 Pharmacological prophylaxis: NA/contraindicated Pharm contraindication: other Lines/Catheters IV Catheter Type (from Nrsg): Mid Line Urinary Cath still in place: No Assessment/Plan Hospital Course 73 yo morbidly obese woman history of peripheral vascular disease, diabetes type II, CHF, likely COPD presents with acute respiratory failure due to CHF exacerba tion. #Acute respiratory failure- - CTPA negative for PE - Likely CHF exacerbation. Echocardiogram performed 5 days ago, shows ejection fraction 35% - Extubated 02/25 - Now breathing comfortably on room air. - Continue oral lasix - Possible transfer to [place] vs home. #Peripheral vascular disease - Cont aspirin, plavix, statin #Diabetic/vascular right foot ulcer - Patient also has outpatient vascular followup - Patient has failed R sided revascularization in the past; per Vascular Dr Naidu repeat attempt at revascularization would be unwise. - No debridement planned. Patient finished a course of IV zosyn and vanco. #Diabetes type II, insulin dependent. - A1c= 9.7 - continue sliding scale insulin #CHF -continue low-dose beta-nabeel per cardiology recommendations -Continue PO lasix #History of DVT - LE duplex negative for DVT. - Not currently on anticoagulation - Should be discharge on Eliquis or Xarelto. 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 GI: famotidine DVT: None DC planning: Patient is stable enough to return home, need to discuss whether or not family is capable of caring for patient, family conference tomorrow to evaluate whether or not it is safe for patient to return home Result Diagram: 03/02/19 0520 03/04/19 0536 Results 24hrs Laboratory Tests Test 03/03/19 17:41 03/03/19 21:10 03/04/19 01:53 03/04/19 05:36 Bedside Glucose 115 141 86 Sodium Level 143 Potassium Level 3.3 L Chloride Level 102 Carbon Dioxide Level 34 H Anion Gap 7 Blood Urea Nitrogen 33 H Creatinine 1.34 H Est Glomerular Filtrat Rate mL/min Glucose Level 139 Calcium Level 8.9 Magnesium Level 1.8 Total Bilirubin 0.4 Direct Bilirubin 0.00 Indirect Bilirubin 0.4 Aspartate Amino 30 Transf (AST/SGOT) Alanine 42 Aminotransferase (AL T/SGPT) Alkaline Phosphatase 113 B-Type Natriuretic 3670 H Peptide Total Protein 6.5 Albumin 3.3 Globulin 3.20 Albumin/Globulin 1.03 Ratio Test 03/04/19 08:43 03/04/19 11:59 Bedside Glucose 111 164 Subjective 24 Hr Interval Summary Constitutional: no complaints Exam/Review of Systems Exam Vitals Vital Signs Date Temp Pulse Resp B/P (MAP) Pulse Ox O2 O2 Flow FiO2 Time Delivery Rate 03/04/19 98.6 84 18 116/69 94 11:42 (85) 03/03/19 Nasal 2.0 20:00 Cannula 02/28/19 30 14:20 Intake and Output 03/03/19 03/03/19 03/04/19 1414:59 22:59 06:59 IntakeIntake Total 650 ml 570 ml OutputOutput Total 4 ml 2 ml 600 ml BalanceBalance -4 ml 648 ml -30 ml Constitutional: alert Respiratory: clear to auscultation Cardiovascular: regular rate and rhythm Gastrointestinal: soft Musculoskeletal: No nl extremities to inspection Results Results 24hrs Laboratory Tests Test 03/03/19 17:41 03/03/19 21:10 03/04/19 01:53 03/04/19 05:36 Bedside Glucose 115 141 86 Sodium Level 143 Potassium Level 3.3 L Chloride Level 102 Carbon Dioxide Level 34 H Anion Gap 7 Blood Urea Nitrogen 33 H Creatinine 1.34 H Est Glomerular Filtrat Rate mL/min Glucose Level 139 Calcium Level 8.9 Magnesium Level 1.8 Total Bilirubin 0.4 Direct Bilirubin 0.00 Indirect Bilirubin 0.4 Aspartate Amino 30 Transf (AST/SGOT) Alanine 42 Aminotransferase (AL T/SGPT) Alkaline Phosphatase 113 B-Type Natriuretic 3670 H Peptide Total Protein 6.5 Albumin 3.3 Globulin 3.20 Albumin/Globulin 1.03 Ratio Test 03/04/19 08:43 03/04/19 11:59 Bedside Glucose 111 164 Medications Medication Current Medications Ondansetron HCl (Zofran Inj) 4 mg Q6H PRN IV NAUSEA AND/OR VOMITING; Start 02/12/19 at 07:30 Ipratropium [place] (Atrovent Hfa) 2 puff Q2H RESP THERAPY PRN INH SHORTNESS OF BREATH; Start 02/12/19 at 07:30 Acetaminophen (Tylenol Liquid) 650 mg Q6H PRN PO PAIN LEVEL 1-3 OR FEVER Last administered on 02/28/19 18:27; Admin Dose 650 MG; Start 02/12/19 at 07:30 Aspirin (Aspirin) 81 mg DAILY PO Last administered on 03/04/19 08:52; Admin Dose 81 MG; Start 02/12/19 at 09:00 Miscellaneous Information 1 ea NOTE XX ; Start 02/12/19 at 09:30 Glucose (Glutose) 15 gm Q15M PRN PO DECREASED GLUCOSE; Start 02/12/19 at 09:30 Glucose (Glutose) 22.5 gm Q15M PRN PO DECREASED GLUCOSE; Start 02/12/19 at 09:30 Dextrose (D50w Syringe) 25 ml Q15M PRN IV DECREASED GLUCOSE Last administered on 02/25/19 16:03; Admin Dose 25 ML; Start 02/12/19 at 09:30 Dextrose (D50w Syringe) 50 ml Q15M PRN IV DECREASED GLUCOSE Last administered on 02/25/19 19:58; Admin Dose 50 ML; Start 02/12/19 at 09:30 Glucagon (Glucagen) 1 mg Q15M PRN IM DECREASED GLUCOSE; Start 02/12/19 at 09:30 Glucose (Glutose) 15 gm Q15M PRN BUCCAL DECREASED GLUCOSE; Start 02/12/19 at 09:30 Sodium Hypochlorite (Dakins Diluted (40)) 1 applic DAILY TP Last administered on 03/04/19 08:55; Admin Dose 1 APPLIC; Start 02/15/19 at 09:00 Albuterol/ Ipratropium (Duoneb) 3 ml Q2H RESP THERAPY PRN HHN SHORTNESS OF BREATH Last administered on 02/26/19 12:13; Admin Dose 3 ML; Start 02/19/19 at 19:00 Nystatin (Nystatin Oint) 1 applic BID TOP Last administered on 03/04/19 08:57; Admin Dose 1 APPLIC; Start 02/21/19 at 09:00 Diphenhydramine HCl (Benadryl) 25 mg Q6H PRN PO ITCHING Last administered on 02/26/19 19:55; Admin Dose 25 MG; Start 02/23/19 at 11:00 Collagenase (Santyl) 1 applic BID TOP Last administered on 03/04/19 08:54; Admin Dose 1 APPLIC; Start 02/24/19 at 10:30 Zinc Sulfate (Zinc Sulfate) 220 mg DAILY PO Last administered on 03/04/19 08:53; Admin Dose 220 MG; Start 02/26/19 at 12:00 Multivitamins Therapeutic (Theragran) 1 tab DAILY PO Last administered on 03/04/19 08:53; Admin Dose 1 TAB; Start 02/26/19 at 12:00 Spironolactone (Aldactone) 25 mg DAILY PO Last administered on 03/04/19 08:52; Admin Dose 25 MG; Start 02/26/19 at 17:30 Labetalol HCl (Labetalol) 10 mg Q6 PRN IV ELEVATED BLOOD PRESSURE Last administered on 02/28/19 00:33; Admin Dose 10 MG; Start 02/27/19 at 01:30 Carvedilol (Coreg) 6.25 mg TID PO Last administered on 03/04/19 08:53; Admin Dose 6.25 MG; Start 02/27/19 at 13:00 Lisinopril (Zestril) 5 mg BID PO Last administered on 03/04/19 08:53; Admin Dose 5 MG; Start 02/27/19 at 21:00 Atorvastatin Calcium (Lipitor) 80 mg QHS PO Last administered on 03/03/19 2 1:21; Admin Dose 80 MG; Start 02/28/19 at 21:00 Clopidogrel Bisulfate (plaVIX) 75 mg DAILY PO Last administered on 03/04/19 08:53; Admin Dose 75 MG; Start 02/28/19 at 09:00 Insulin Glargine (Lantus) 18 units BID SC Last administered on 03/04/19 08:56; Admin Dose 18 UNITS; Start 02/28/19 at 09:00 Nicotine (Nicoderm 21 Mg/ 24hr) 1 patch DAILY TRANSDERM Last administered on 03/04/19 08:55; Admin Dose 1 PATCH; Start 02/28/19 at 09:00 Hydralazine HCl (Apresoline) 10 mg Q4H PRN IV ELEVATED BLOOD PRESSURE Last administered on 03/04/19 10:15; Admin Dose 10 MG; Start 02/28/19 at 03:30 Loperamide HCl (Imodium Cap) 2 mg QID PRN PO DIARRHEA; Start 02/28/19 at 09:00 Tramadol HCl (Ultram) 50 mg Q6H PRN PO MODERATE PAIN LEVEL 4-6 Last administered on 03/03/19 10:12; Admin Dose 50 MG; Start 02/28/19 at 20:30 Insulin Aspart (Novolog Insulin Pen) NOVOLOG *MODERATE* ALGORITHM WITH MEALS BEDTIME SC Last administered on 03/04/19 12:10; Admin Dose 2 UNIT; Start 03/01/19 at 08:00 Diagnostic Test (Pha) (Accu-Chek) 1 ea 02 XX Last administered on 03/04/19 02:00; Admin Dose 1 EA; Start 03/01/19 at 02:00 Famotidine (Pepcid) 20 mg DAILY PO Last administered on 03/04/19 08:53; Admin Dose 20 MG; Start 03/02/19 at 09:00 Valproic Acid (Depakene) 250 mg TID PO Last administered on 03/04/19 08:54; Admin Dose 250 MG; Start 03/02/19 at 13:00 Furosemide (Lasix) 40 mg BID DIURETICS PO Last administered on 03/04/19 06:00; Admin Dose 40 MG; Start 03/02/19 at 18:00 EDVIN PANTOJA Mar 04, 2019 14:20
--- NOTE | 2019-03-04 14:24 | CONS ---
Consult Date/Type/Reason Admit Date/Time Feb 12, 2019 at 04:44 Initial Consult Date 02/20/19 Type of Consultation: CV Requesting Provider: PATSY JONES Date/Time of Note DATE: 03/04/19 TIME: 14:21 Subjective Cardiology follow-up progress note Subjective: Case discussed with staff and telemetry was reviewed. Patient has remained in normal sinus rhythm Patient has remained confused again and is unable to provide reliable history to me Patient is less hypoxemic today d/w grandson Patient is extubated 02/25/19 blood pressure has remained stable /high now There is no report of any chest pain or pressure Objective: General: Obese female no acute distress HEENT: NC/AT. pupils are equal. round. NECK: Unable to assess for JVD. no stridor. CV: RRR. systolic murmur; no gallop or rubs. PULM: no wheezing minimal rhonchi. 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 Right leg wound noted neuro: Awake appears to be oriented x1 only Psych: calm rectal: deferred : Deferred Echocardiogram was personally reviewed which shows: Normal left ventricular cavity size. Mild concentric left ventricular hypertrophy. Moderate left ventricular systolic dysfunction. Ejection fraction is visually estimated at 35 %. Tissue Doppler/Mitral Doppler indices are consistent with impaired relaxation (Stage I diastolic dysfunction). Multiple segmental wall motion abnormalities. Mitral valve leaflets appear mildly thickened. Mild mitral annular calcification. Trace mitral regurgitation. Normal appearance and function of the tricuspid valve with trace physiologic regurgitation. Normal right ventricular systolic pressure. suboptimal study. Chest x-ray done 02/19/2019 shows: There is mild atelectasis at the lung bases, unchanged. Mild pulmonary edema is unchanged. The heart size is normal. There are small bilateral pleural effusions. There is no pneumothorax. cxr 02/22 reviewed 1. Interval decreased central pulmonary vascular congestion. 2. Stable cardiomegaly with aortic atherosclerosis. 3. Stable position of support devices. CXR 03/01 Cardiomegaly. Blunted bilateral costophrenic angles that may reflect small pleural effusions. Atelectasis versus minimal infiltrates in the perihilar left lower lobe. Scattered atelectasis in the remainder the lungs. Hypoinflated lungs. Objective Vitals Vital Signs Date Temp Pulse Resp B/P (MAP) Pulse Ox O2 O2 Flow FiO2 Time Delivery Rate 03/04/19 98.6 84 18 116/69 94 11:42 (85) 03/03/19 Nasal 2.0 20:00 Cannula 02/28/19 30 14:20 Intake and Output 03/03/19 03/03/19 03/04/19 1515:00 23:00 07:00 IntakeIntake Total 650 ml 570 ml OutputOutput Total 4 ml 2 ml 600 ml BalanceBalance -4 ml 648 ml -30 ml Results/Medications Result Diagram: 03/02/19 0520 03/04/19 0536 Results 24 hrs Laboratory Tests Test 03/03/19 17:41 03/03/19 21:10 03/04/19 01:53 03/04/19 05:36 Bedside Glucose 115 141 86 Sodium Level 143 Potassium Level 3.3 L Chloride Level 102 Carbon Dioxide Level 34 H Anion Gap 7 Blood Urea Nitrogen 33 H Creatinine 1.34 H Est Glomerular Filtrat Rate mL/min Glucose Level 139 Calcium Level 8.9 Magnesium Level 1.8 Total Bilirubin 0.4 Direct Bilirubin 0.00 Indirect Bilirubin 0.4 Aspartate Amino 30 Transf (AST/SGOT) Alanine 42 Aminotransferase (AL T/SGPT) Alkaline Phosphatase 113 B-Type Natriuretic 3670 H Peptide Total Protein 6.5 Albumin 3.3 Globulin 3.20 Albumin/Globulin 1.03 Ratio Test 03/04/19 08:43 03/04/19 11:59 Bedside Glucose 111 164 Home Meds Reported Medications Insulin Glargine,Hum.rec.anlog (Basaglar Kwikpen U-100) 100 Unit/1 Ml In suln.pen, 0-12 UNIT SC QHS for PER SLIDING SCALE, EA 02/12/19 Insulin Aspart* (Novolog Insulin Pen*) 100 Unit/Ml Soln, 0-12 SC .SLIDING SCALE AC, EA 02/12/19 Dulaglutide (Trulicity) 1.5 Mg/0.5 Ml Pen.injctr, 1.5 MG SQ WEEKLY 02/12/19 Aspirin* (Aspirin* Chew) 81 Mg Tab.chew, 81 MG PO DAILY, TAB.CHEW 02/12/19 Clopidogrel Bisulfate (Clopidogrel) 75 Mg Tablet, 1 TAB ORAL DAILY 02/12/19 Tramadol HCl (Tramadol HCl) 50 Mg Tablet, 1 TAB ORAL Q6 PRN for PAIN LEVEL 4-6 02/12/19 Arginine Hcl (Arginine Hcl) 1 Gm Powder, 1 GM MC DAILY 02/12/19 Sacubitril/Valsartan (Entresto 49 mg-51 mg Tablet) 1 Each Tablet, 1 TAB ORAL DAILY 02/12/19 Atorvastatin* (Atorvastatin*) 80 Mg Tablet, 1 TAB ORAL QHS 02/12/19 Carvedilol* (Carvedilol*) 25 Mg Tablet, 1 TAB ORAL BID 02/12/19 Spironolactone* (Aldactone*) 25 Mg Tablet, 12.5 MG PO QAM, #60 TAB 02/12/19 Ampicillin Sodium-Sulbactam Sodium (Unasyn*) 3 Gm Soln, 3 GM IVPB Q6, VIAL 02/12/19 Medications Current Medications Ondansetron HCl (Zofran Inj) 4 mg Q6H PRN IV NAUSEA AND/OR VOMITING; Start 02/12/19 at 07:30 Ipratropium [place] (Atrovent Hfa) 2 puff Q2H RESP THERAPY PRN INH SHORTNESS OF BREATH; Start 02/12/19 at 07:30 Acetaminophen (Tylenol Liquid) 650 mg Q6H PRN PO PAIN LEVEL 1-3 OR FEVER Last a dministered on 02/28/19at 18:27; Admin Dose 650 MG; Start 02/12/19 at 07:30 Aspirin (Aspirin) 81 mg DAILY PO Last administered on 03/04/19at 08:52; Admin Dose 81 MG; Start 02/12/19 at 09:00 Miscellaneous Information 1 ea NOTE XX ; Start 02/12/19 at 09:30 Glucose (Glutose) 15 gm Q15M PRN PO DECREASED GLUCOSE; Start 02/12/19 at 09:30 Glucose (Glutose) 22.5 gm Q15M PRN PO DECREASED GLUCOSE; Start 02/12/19 at 09:30 Dextrose (D50w Syringe) 25 ml Q15M PRN IV DECREASED GLUCOSE Last administered on 02/25/19at 16:03; Admin Dose 25 ML; Start 02/12/19 at 09:30 Dextrose (D50w Syringe) 50 ml Q15M PRN IV DECREASED GLUCOSE Last administered on 02/25/19at 19:58; Admin Dose 50 ML; Start 02/12/19 at 09:30 Glucagon (Glucagen) 1 mg Q15M PRN IM DECREASED GLUCOSE; Start 02/12/19 at 09:30 Glucose (Glutose) 15 gm Q15M PRN BUCCAL DECREASED GLUCOSE; Start 02/12/19 at 09:30 Sodium Hypochlorite (Dakins Diluted ()) 1 applic DAILY TP Last administered on 03/04/19 08:55; Admin Dose 1 APPLIC; Start 02/15/19 at 09:00 Albuterol/ Ipratropium (Duoneb) 3 ml Q2H RESP THERAPY PRN HHN SHORTNESS OF BREATH Last administered on 02/26/19 12:13; Admin Dose 3 ML; Start 02/19/19 at 19:00 Nystatin (Nystatin Oint) 1 applic BID TOP Last administered on 03/04/19 08:57; Admin Dose 1 APPLIC; Start 02/21/19 at 09:00 Diphenhydramine HCl (Benadryl) 25 mg Q6H PRN PO ITCHING Last administered on 02/26/19 19:55; Admin Dose 25 MG; Start 02/23/19 at 11:00 Collagenase (Santyl) 1 applic BID TOP Last administered on 03/04/19 08:54; Admin Dose 1 APPLIC; Start 02/24/19 at 10:30 Zinc Sulfate (Zinc Sulfate) 220 mg DAILY PO Last administered on 03/04/19 08:53; Admin Dose 220 MG; Start 02/26/19 at 12:00 Multivitamins Therapeutic (Theragran) 1 tab DAILY PO Last administered on 03/04/19 08:53; Admin Dose 1 TAB; Start 02/26/19 at 12:00 Spironolactone (Aldactone) 25 mg DAILY PO Last administered on 03/04/19 08:52; Admin Dose 25 MG; Start 02/26/19 at 17:30 Labetalol HCl (Labetalol) 10 mg Q6 PRN IV ELEVATED BLOOD PRESSURE Last administered on 02/28/19 00:33; Admin Dose 10 MG; Start 02/27/19 at 01:30 Carvedilol (Coreg) 6.25 mg TID PO Last administered on 03/04/19 08:53; Admin Dose 6.25 MG; Start 02/27/19 at 13:00 Lisinopril (Zestril) 5 mg BID PO Last administered on 03/04/19 08:53; Admin Dose 5 MG; Start 02/27/19 at 21:00 Atorvastatin Calcium (Lipitor) 80 mg QHS PO Last administered on 03/03/19 21:21; Admin Dose 80 MG; Start 02/28/19 at 21:00 Clopidogrel Bisulfate (plaVIX) 75 mg DAILY PO Last administered on 03/04/19 08:53; Admin Dose 75 MG; Start 02/28/19 at 09:00 Insulin Glargine (Lantus) 18 units BID SC Last administered on 03/04/19 08:56; Admin Dose 18 UNITS; Start 02/28/19 at 09:00 Nicotine (Nicoderm 21 Mg/ 24hr) 1 patch DAILY TRANSDERM Last administered on 03/04/19 08:55; Admin Dose 1 PATCH; Start 02/28/19 at 09:00 Hydralazine HCl (Apresoline) 10 mg Q4H PRN IV ELEVATED BLOOD PRESSURE Last administered on 03/04/19 10:15; Admin Dose 10 MG; Start 02/28/19 at 03:30 Loperamide HCl (Imodium Cap) 2 mg QID PRN PO DIARRHEA; Start 02/28/19 at 09:00 Tramadol HCl (Ultram) 50 mg Q6H PRN PO MODERATE PAIN LEVEL 4-6 Last administered on 03/03/19 10:12; Admin Dose 50 MG; Start 02/28/19 at 20:30 Insulin Aspart (Novolog Insulin Pen) NOVOLOG *MODERATE* ALGORITHM WITH MEALS BEDTIME SC Last administered on 03/04/19 12:10; Admin Dose 2 UNIT; Start 03/01/19 at 08:00 Diagnostic Test (Pha) (Accu-Chek) 1 ea 02 XX Last administered on 03/04/19 02:00; Admin Dose 1 EA; Start 03/01/19 at 02:00 Famotidine (Pepcid) 20 mg DAILY PO Last administered on 03/04/19 08:53; Admin Dose 20 MG; Start 03/02/19 at 09:00 Valproic Acid (Depakene) 250 mg TID PO Last administered on 03/04/19 08:54; Admin Dose 250 MG; Start 03/02/19 at 13:00 Furosemide (Lasix) 40 mg BID DIURETICS PO Last administered on 03/04/19at 06:00; Admin Dose 40 MG; Start 03/02/19 at 18:00 Assessment/Plan Hospital Course (Demo Recall) Acute hypoxemic respiratory failure status post intubation now extubated 02/25/19 Congestive heart failure: Acute on chronic secondary systolic heart failure Sepsis Coronary artery disease with history of [place] History of ischemic cardiomyopathy ejection fraction of 35% History of multiple PCI Severe peripheral vascular disease status post left leg amputation as well as right leg severe PAD Hypertension diabetes dyslipidemia Hyponatremia Acute kidney injury; improved now Recommendations: Continue with aspirin and Plavix Continue with PO LASIX diabetic control as per internal medicine We will cont carvedilol and inc as needed/tolerated Antibiotic management as per internal medicine ID recommendations DVT prophylaxis GI prophylaxis as per internal medicine cont aldactone cont lisinopril replace electrolyte including potassium magnesium as needed Aspiration precaution Thank you for his referral. We will continue to follow along with you YOGI NICOLAS MD [facility] YOGI NICOLAS MD Mar 04, 2019 14:24
[2019-03-04] MEDS ORDERED: POTASSIUM CHLORIDE (SR) 20 MEQ TAB PO STA (14:25)
--- NOTE | 2019-03-04 15:35 | CONS ---
Consult Date/Type/Reason Admit Date/Time Feb 12, 2019 at 04:44 Initial Consult Date 02/20/19 Type of Consultation: Pulm Requesting Provider: PATSY JONES Date/Time of Note DATE: 03/04/19 TIME: 15:34 Subjective No events. Less hypoxic. Objective Vitals Vital Signs Date Temp Pulse Resp B/P (MAP) Pulse Ox O2 O2 Flow FiO2 Time Delivery Rate 03/04/19 98.6 77 18 130/61 95 15:11 (84) 03/04/19 Nasal 2.0 08:00 Cannula 02/28/19 30 14:20 Intake and Output 03/03/19 03/03/19 03/04/19 1515:00 23:00 07:00 IntakeIntake Total 650 ml 570 ml OutputOutput Total 4 ml 2 ml 600 ml BalanceBalance -4 ml 648 ml -30 ml Exam NECK: Supple. No JVD or lymphadenopathy. CARDIAC EXAM: S1, S2. No added sounds or murmurs. CHEST: Diminished air entry bilaterally ABDOMEN: Soft, nontender. No guarding or rebound. EXTREMITIES: No cyanosis, clubbing edema +2 NEUROLOGIC: Generalized weakness. No focal deficits Results/Medications Result Diagram: 03/02/19 0520 03/04/19 0536 Results 24 hrs Laboratory Tests Test 03/03/19 17:41 03/03/19 21:10 03/04/19 01:53 03/04/19 05:36 Bedside Glucose 115 141 86 Sodium Level 143 Potassium Level 3.3 L Chloride Level 102 Carbon Dioxide Level 34 H Anion Gap 7 Blood Urea Nitrogen 33 H Creatinine 1.34 H Est Glomerular Filtrat Rate mL/min Glucose Level 139 Calcium Level 8.9 Magnesium Level 1.8 Total Bilirubin 0.4 Direct Bilirubin 0.00 Indirect Bilirubin 0.4 Aspartate Amino 30 Transf (AST/SGOT) Alanine 42 Aminotransferase (AL T/SGPT) Alkaline Phosphatase 113 B-Type Natriuretic 3670 H Peptide Total Protein 6.5 Albumin 3.3 Globulin 3.20 Albumin/Globulin 1.03 Ratio Test 03/04/19 08:43 03/04/19 11:59 Bedside Glucose 111 164 Home Meds Reported Medications Insulin Glargine,Hum.rec.anlog (Basaglar Kwikpen U-100) 100 Unit/1 Ml Insuln.pen, 0-12 UNIT SC QHS for PER SLIDING SCALE, EA 02/12/19 Insulin Aspart* (Novolog Insulin Pen*) 100 Unit/Ml Soln, 0-12 SC .SLIDING SCALE AC, EA 02/12/19 Dulaglutide (Trulicity) 1.5 Mg/0.5 Ml Pen.injctr, 1.5 MG SQ WEEKLY 02/12/19 Aspirin* (Aspirin* Chew) 81 Mg Tab.chew, 81 MG PO DAILY, TAB.CHEW 02/12/19 Clopidogrel Bisulfate (Clopidogrel) 75 Mg Tablet, 1 TAB ORAL DAILY 02/12/19 Tramadol HCl (Tramadol HCl) 50 Mg Tablet, 1 TAB ORAL Q6 PRN for PAIN LEVEL 4-6 02/12/19 Arginine Hcl (Arginine Hcl) 1 Gm Powder, 1 GM MC DAILY 02/12/19 Sacubitril/Valsartan (Entresto 49 mg-51 mg Tablet) 1 Each Tablet, 1 TAB ORAL DAILY 02/12/19 Atorvastatin* (Atorvastatin*) 80 Mg Tablet, 1 TAB ORAL QHS 02/12/19 Carvedilol* (Carvedilol*) 25 Mg Tablet, 1 TAB ORAL BID 02/12/19 Spironolactone* (Aldactone*) 25 Mg Tablet, 12.5 MG PO QAM, #60 TAB 02/12/19 Ampicillin Sodium-Sulbactam Sodium (Unasyn*) 3 Gm Soln, 3 GM IVPB Q6, VIAL 02/12/19 Medications Current Medications Ondansetron HCl (Zofran Inj) 4 mg Q6H PRN IV NAUSEA AND/OR VOMITING; Start 02/12/19 at 07:30 Ipratropium [place] (Atrovent Hfa) 2 puff Q2H RESP THERAPY PRN INH SHORTNESS OF BREATH; Start 02/12/19 at 07:30 Acetaminophen (Tylenol Liquid) 650 mg Q6H PRN PO PAIN LEVEL 1-3 OR FEVER Last administered on 02/28/19at 18:27; Admin Dose 650 MG; Start 02/12/19 at 07:30 Aspirin (Aspirin) 81 mg DAILY PO Last administered on 03/04/19at 08:52; Admin Dose 81 MG; Start 02/12/19 at 09:00 Miscellaneous Information 1 ea NOTE XX ; Start 02/12/19 at 09:30 Glucose (Glutose) 15 gm Q15M PRN PO DECREASED GLUCOSE; Start 02/12/19 at 09:30 Glucose (Glutose) 22.5 gm Q15M PRN PO DECREASED GLUCOSE; Start 02/12/19 at 09:30 Dextrose (D50w Syringe) 25 ml Q15M PRN IV DECREASED GLUCOSE Last administered on 02/25/19at 16:03; Admin Dose 25 ML; Start 02/12/19 at 09:30 Dextrose (D50w Syringe) 50 ml Q15M PRN IV DECREASED GLUCOSE Last administered on 02/25/19at 19:58; Admin Dose 50 ML; Start 02/12/19 at 09:30 Glucagon (Glucagen) 1 mg Q15M PRN IM DECREASED GLUCOSE; Start 02/12/19 at 09:30 Glucose (Glutose) 15 gm Q15M PRN BUCCAL DECREASED GLUCOSE; Start 02/12/19 at 09:30 Sodium Hypochlorite (Dakins Diluted (40)) 1 applic DAILY TP Last administered on 03/04/19 08:55; Admin Dose 1 APPLIC; Start 02/15/19 at 09:00 Albuterol/ Ipratropium (Duoneb) 3 ml Q2H RESP THERAPY PRN HHN SHORTNESS OF BREATH Last administered on 02/26/19at 12:13; Admin Dose 3 ML; Start 02/19/19 at 19:00 Nystatin (Nystatin Oint) 1 applic BID TOP Last administered on 03/04/19 08:57; Admin Dose 1 APPLIC; Start 02/21/19 at 09:00 Diphenhydramine HCl (Benadryl) 25 mg Q6H PRN PO ITCHING Last administered on 02/26/19 19:55; Admin Dose 25 MG; Start 02/23/19 at 11:00 Collagenase (Santyl) 1 applic BID TOP Last administered on 03/04/19 08:54; Admin Dose 1 APPLIC; Start 02/24/19 at 10:30 Zinc Sulfate (Zinc Sulfate) 220 mg DAILY PO Last administered on 03/04/19 08 :53; Admin Dose 220 MG; Start 02/26/19 at 12:00 Multivitamins Therapeutic (Theragran) 1 tab DAILY PO Last administered on 03/04/19 08:53; Admin Dose 1 TAB; Start 02/26/19 at 12:00 Spironolactone (Aldactone) 25 mg DAILY PO Last administered on 03/04/19 08:52; Admin Dose 25 MG; Start 02/26/19 at 17:30 Labetalol HCl (Labetalol) 10 mg Q6 PRN IV ELEVATED BLOOD PRESSURE Last administered on 02/28/19 00:33; Admin Dose 10 MG; Start 02/27/19 at 01:30 Carvedilol (Coreg) 6.25 mg TID PO Last administered on 03/04/19 15:02; Admin Dose 6.25 MG; Start 02/27/19 at 13:00 Lisinopril (Zestril) 5 mg BID PO Last administered on 03/04/19 08:53; Admin Dose 5 MG; Start 02/27/19 at 21:00 Atorvastatin Calcium (Lipitor) 80 mg QHS PO Last administered on 03/03/19 21:21; Admin Dose 80 MG; Start 02/28/19 at 21:00 Clopidogrel Bisulfate (plaVIX) 75 mg DAILY PO Last administered on 03/04/19 08:53; Admin Dose 75 MG; Start 02/28/19 at 09:00 Insulin Glargine (Lantus) 18 units BID SC Last administered on 03/04/19 08:56; Admin Dose 18 UNITS; Start 02/28/19 at 09:00 Nicotine (Nicoderm 21 Mg/ 24hr) 1 patch DAILY TRANSDERM Last administered on 03/04/19 08:55; Admin Dose 1 PATCH; Start 02/28/19 at 09:00 Hydralazine HCl (Apresoline) 10 mg Q4H PRN IV ELEVATED BLOOD PRESSURE Last administered on 03/04/19 10:15; Admin Dose 10 MG; Start 02/28/19 at 03:30 Loperamide HCl (Imodium Cap) 2 mg QID PRN PO DIARRHEA; Start 02/28/19 at 09:00 Tramadol HCl (Ultram) 50 mg Q6H PRN PO MODERATE PAIN LEVEL 4-6 Last a dministered on 03/03/19 10:12; Admin Dose 50 MG; Start 02/28/19 at 20:30 Insulin Aspart (Novolog Insulin Pen) NOVOLOG *MODERATE* ALGORITHM WITH MEALS BEDTIME SC Last administered on 03/04/19 12:10; Admin Dose 2 UNIT; Start 03/01/19 at 08:00 Diagnostic Test (Pha) (Accu-Chek) 1 ea 02 XX Last administered on 03/04/19at 02:00; Admin Dose 1 EA; Start 03/01/19 at 02:00 Famotidine (Pepcid) 20 mg DAILY PO Last administered on 03/04/19at 08:53; Admin Dose 20 MG; Start 03/02/19 at 09:00 Valproic Acid (Depakene) 250 mg TID PO Last administered on 03/04/19at 15:02; Admin Dose 250 MG; Start 03/02/19 at 13:00 Furosemide (Lasix) 40 mg BID DIURETICS PO Last administered on 03/04/19at 06:00; Admin Dose 40 MG; Start 03/02/19 at 18:00 Spironolactone (Aldactone) 25 mg DAILY PO ; Start 03/05/19 at 09:00 Assessment/Plan Assessment/Plan (Daily) IMP: 1. s/p Acute hypoxemic respiratory failure 2. Likely acute tracheobronchitis with congestive cardiac failure 3. Peripheral vascular disease 4. History of diabetes mellitus 5. History of coronary artery disease status post coronary intervention 6. Encephalopathy toxic metabolic RECS: 1. Aspiration precautions 2. Increase free H20 3. BDs/CPT MARCO BOSE MD Mar 04, 2019 15:35
[2019-03-04] MEDS: DIPHENHYDRAMINE 25 MG CAP PO PRN (22:02)
[2019-03-04] MEDS: ATORVASTATIN 80 MG TAB PO SCH (22:04)
[2019-03-05] MEDS: ACCU-CHEK XX SCH (02:55)
[2019-03-05 03:49] VITALS: BP 161/72; PULSE 71; RESP 18
[2019-03-05] MEDS: FUROSEMIDE 40 MG TAB PO SCH ×2 (06:43→17:34)
[2019-03-05 07:46] VITALS: BP 150/68; PULSE 75; RESP 19
[2019-03-05] MEDS: INSULIN ASPART [NOVOLOG] 3 ML PEN SC SCH ×4 (08:58→22:03)
[2019-03-05] MEDS: FAMOTIDINE 20 MG TAB PO SCH (09:00)
[2019-03-05] MEDS: VALPROIC ACID 250 MG CAP PO SCH ×3 (09:00→21:57)
[2019-03-05] MEDS: SPIRONOLACTONE 25 MG TAB PO SCH ×2 (09:00→09:01)
[2019-03-05] MEDS: ZINC SULFATE 220 MG CAP PO SCH (09:00)
[2019-03-05] MEDS: MULTIVITAMINS THERAPEUTIC TAB PO SCH (09:00)
[2019-03-05] MEDS: ASPIRIN 81 MG TAB PO SCH (09:01)
[2019-03-05] MEDS: LISINOPRIL 5 MG TAB PO SCH ×2 (09:01→21:55)
[2019-03-05] MEDS: CLOPIDOGREL 75 MG TAB PO SCH (09:02)
[2019-03-05] MEDS: NYSTATIN 15 GM OINT TOP SCH ×2 (09:02→21:56)
[2019-03-05] MEDS: BALSAM PERU/CASTOR OIL 60 GM TUBE TOP SCH ×2 (09:02→21:56)
[2019-03-05] MEDS: DAKINS 0.0125%(1/40) 473 ML SOLUTION TP SCH (09:03)
[2019-03-05] MEDS: NICOTINE (21 MG/24 HR) PATCH TRANSDERM SCH (09:03)
[2019-03-05] MEDS: COLLAGENASE 5 GM (UD JAR) TOP SCH ×2 (09:03→21:56)
[2019-03-05] MEDS: INSULIN GLARGINE [LANTus] (100 UNITS/ML) SYG SC SCH ×2 (09:23→22:03)
[2019-03-05 11:43] VITALS: BP 153/68; PULSE 73; RESP 20
--- NOTE | 2019-03-05 11:46 | CONS ---
Consult Date/Type/Reason Admit Date/Time Feb 12, 2019 at 04:44 Initial Consult Date 02/20/19 Type of Consult Pulmonary Requesting Provider: PATSY JONES Date/Time of Note DATE: 03/05/19 TIME: 11:45 Subjective No significant changes. Still agitated requiring sitter at bedside. Objective Vital Signs Date Temp Pulse Resp B/P (MAP) Pulse Ox O2 O2 Flow FiO2 Time Delivery Rate 03/05/19 98.5 73 20 153/68 95 Room Air 11:43 (96) 03/05/19 2.0 08:58 Intake and Output 03/04/19 03/04/19 03/05/19 1515:00 23:00 07:00 IntakeIntake Total 360 ml 450 ml BalanceBalance 360 ml 450 ml Exam GENERAL: Elderly appearing lady comfortable at rest mildly agitated VITAL SIGNS: per chart NECK: Supple. No JVD or lymphadenopathy. CARDIAC EXAM: S1, S2. No added sounds or murmurs. CHEST: clear bilaterally, No added sounds, rales or wheezes ABDOMEN: Soft, nontender. No guarding or rebound. EXTREMITIES: No cyanosis, clubbing or edema. NEUROLOGIC: Generalized weakness. No focal deficits. Vent Setting Ventilator Support Mode: CPAP, PS Fraction of Inspired Oxygen pe: 30 Positive End Expiratory Pressu: 5.0 Results/Medications Result Diagram: 03/02/19 0520 03/05/19 0448 Results 24 hrs Laboratory Tests Test 03/04/19 11:59 03/04/19 17:45 03/04/19 21:15 03/05/19 02:47 Bedside Glucose 164 155 153 103 Test 03/05/19 04:48 03/05/19 08:54 Sodium Level 144 Potassium Level 4.0 Chloride Level 104 Carbon Dioxide Level 31 Anion Gap 9 Blood Urea Nitrogen 40 H Creatinine 1.44 H Est Glomerular Filtrat Rate mL/min Glucose Level 94 # Calcium Level 9.3 Magnesium Level 1.9 Total Bilirubin 0.4 Direct Bilirubin 0.00 Indirect Bilirubin 0.4 Aspartate Amino 33 Transf (AST/SGOT) Alanine 50 Aminotransferase (AL T/SGPT) Alkaline Phosphatase 112 B-Type Natriuretic 2310 H Peptide Total Protein 6.8 Albumin 3.4 Globulin 3.40 H Albumin/Globulin 1.00 Ratio Bedside Glucose 189 Medications Current Medications Ondansetron HCl (Zofran Inj) 4 mg Q6H PRN IV NAUSEA AND/OR VOMITING; Start 02/12/19 at 07:30 Ipratropium [place] (Atrovent Hfa) 2 puff Q2H RESP THERAPY PRN INH SHORTNESS OF BREATH; Start 02/12/19 at 07:30 Acetaminophen (Tylenol Liquid) 650 mg Q6H PRN PO PAIN LEVEL 1-3 OR FEVER Last administered on 02/28/19 18:27; Admin Dose 650 MG; Start 02/12/19 at 07:30 Aspirin (Aspirin) 81 mg DAILY PO Last administered on 03/05/19 09:01; Admin Dose 81 MG; Start 02/12/19 at 09:00 Miscellaneous Information 1 ea NOTE XX ; Start 02/12/19 at 09:30 Glucose (Glutose) 15 gm Q15M PRN PO DECREASED GLUCOSE; Start 02/12/19 at 09:30 Glucose (Glutose) 22.5 gm Q15M PRN PO DECREASED GLUCOSE; Start 02/12/19 at 09:30 Dextrose (D50w Syringe) 25 ml Q15M PRN IV DECREASED GLUCOSE Last administered on 02/25/19at 16:03; Admin Dose 25 ML; Start 02/12/19 at 09:30 Dextrose (D50w Syringe) 50 ml Q15M PRN IV DECREASED GLUCOSE Last administered on 02/25/19at 19:58; Admin Dose 50 ML; Start 02/12/19 at 09:30 Glucagon (Glucagen) 1 mg Q15M PRN IM DECREASED GLUCOSE; Start 02/12/19 at 09:30 Glucose (Glutose) 15 gm Q15M PRN BUCCAL DECREASED GLUCOSE; Start 02/12/19 at 09:30 Sodium Hypochlorite (Dakins Diluted (40)) 1 applic DAILY TP Last administered on 03/05/19 09:03; Admin Dose 1 APPLIC; Start 02/15/19 at 09:00 Albuterol/ Ipratropium (Duoneb) 3 ml Q2H RESP THERAPY PRN HHN SHORTNESS OF BREATH Last administered on 02/26/19 12:13; Admin Dose 3 ML; Start 02/19/19 at 19:00 Nystatin (Nystatin Oint) 1 applic BID TOP Last administered on 03/05/19 09:02; Admin Dose 1 APPLIC; Start 02/21/19 at 09:00 Diphenhydramine HCl (Benadryl) 25 mg Q6H PRN PO ITCHING Last administered on 03/04/19 22:02; Admin Dose 25 MG; Start 02/23/19 at 11:00 Collagenase (Santyl) 1 applic BID TOP Last administered on 03/05/19 09:03; Admin Dose 1 APPLIC; Start 02/24/19 at 10:30 Zinc Sulfate (Zinc Sulfate) 220 mg DAILY PO Last administered on 03/05/19 09:00; Admin Dose 220 MG; Start 02/26/19 at 12:00 Multivitamins Therapeutic (Theragran) 1 tab DAILY PO Last administered on 03/05/19 09:00; Admin Dose 1 TAB; Start 02/26/19 at 12:00 Spironolactone (Aldactone) 25 mg DAILY PO Last administered on 03/05/19 09:01; Admin Dose 25 MG; Start 02/26/19 at 17:30 Labetalol HCl (Labetalol) 10 mg Q6 PRN IV ELEVATED BLOOD PRESSURE Last administered on 02/28/19 00:33; Admin Dose 10 MG; Start 02/27/19 at 01:30 Carvedilol (Coreg) 6.25 mg TID PO Last administered on 03/05/19 09:01; Admin Dose 6.25 MG; Start 02/27/19 at 13:00 Lisinopril (Zestril) 5 mg BID PO Last administered on 03/05/19 09:01; Admin Dose 5 MG; Start 02/27/19 at 21:00 Atorvastatin Calcium (Lipitor) 80 mg QHS PO Last administered on 03/04/19 22:04; Admin Dose 80 MG; Start 02/28/19 at 21:00 Clopidogrel Bisulfate (plaVIX) 75 mg DAILY PO Last administered on 03/05/19 09:02; Admin Dose 75 MG; Start 02/28/19 at 09:00 Insulin Glargine (Lantus) 18 units BID SC Last administered on 03/05/19 09:23; Admin Dose 18 UNITS; Start 02/28/19 at 09:00 Nicotine (Nicoderm 21 Mg/ 24hr) 1 patch DAILY TRANSDERM Last administered on 03/05/19 09:03; Admin Dose 1 PATCH; Start 02/28/19 at 09:00 Hydralazine HCl (Apresoline) 10 mg Q4H PRN IV ELEVATED BLOOD PRESSURE Last administered on 03/04/19 10:15; Admin Dose 10 MG; Start 02/28/19 at 03:30 Loperamide HCl (Imodium Cap) 2 mg QID PRN PO DIARRHEA; Start 02/28/19 at 09:00 Tramadol HCl (Ultram) 50 mg Q6H PRN PO MODERATE PAIN LEVEL 4-6 Last administered on 03/03/19at 10:12; Admin Dose 50 MG; Start 02/28/19 at 20:30 Insulin Aspart (Novolog Insulin Pen) NOVOLOG *MODERATE* ALGORITHM WITH MEALS BEDTIME SC Last administered on 03/05/19 08:58; Admin Dose 4 UNIT; Start 03/01/19 at 08:00 Diagnostic Test (Pha) (Accu-Chek) 1 ea 02 XX Last administered on 03/05/19at 02:55; Admin Dose 1 EA; Start 03/01/19 at 02:00 Famotidine (Pepcid) 20 mg DAILY PO Last administered on 03/05/19at 09:00; Admin Dose 20 MG; Start 03/02/19 at 09:00 Valproic Acid (Depakene) 250 mg TID PO Last administered on 03/05/19 09:00; Admin Dose 250 MG; Start 03/02/19 at 13:00 Furosemide (Lasix) 40 mg BID DIURETICS PO Last administered on 03/05/19 06:43; Admin Dose 40 MG; Start 03/02/19 at 18:00 Spironolactone (Aldactone) 25 mg DAILY PO ; Start 03/05/19 at 09:00 Assessment/Plan Hospital Course (Demo Recall) IMP: 1. s/p Acute hypoxemic respiratory failure 2. Likely acute tracheobronchitis with congestive cardiac failure 3. Peripheral vascular disease 4. History of diabetes mellitus 5. History of coronary artery disease status post coronary intervention 6. Encephalopathy toxic metabolic RECS: 1. Aspiration precautions 2. Increase free H20 3. BDs/CPT 4. Psych recommendations regarding encephalopathy/dementia KAYLAH OMALLEY MD, [facility] Mar 05, 2019 11:46
--- NOTE | 2019-03-05 14:16 | CONS ---
Consult Date/Type/Reason Admit Date/Time Feb 12, 2019 at 04:44 Initial Consult Date 02/20/19 Type of Consultation: cv Requesting Provider: PATSY JONES Date/Time of Note DATE: 03/05/19 TIME: 14:15 Subjective Cardiology follow-up progress note Subjective: Case discussed with staff and telemetry was reviewed. Patient has remained in normal sinus rhythm Patient has remained confused Patient is not hypoxemic today Patient is extubated 02/25/19 blood pressure has remained stable /high now There is no report of any chest pain or pressure Objective: General: Obese female no acute distress HEENT: NC/AT. pupils are equal. round. NECK: Unable to assess for JVD. no stridor. CV: RRR. systolic murmur; no gallop or rubs. PULM: no wheezing minimal rhonchi. 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 Right leg wound noted neuro: Awake . oriented x1 at least Psych: calm rectal: deferred : Deferred Echocardiogram was personally reviewed which shows: Normal left ventricular cavity size. Mild concentric left ventricular hypertrophy. Moderate left ventricular systolic dysfunction. Ejection fraction is visually estimated at 35 %. Tissue Doppler/Mitral Doppler indices are consistent with impaired relaxation (Stage I diastolic dysfunction). Multiple segmental wall motion abnormalities. Mitral valve leaflets appear mildly thickened. Mild mitral annular calcification. Trace mitral regurgitation. Normal appearance and function of the tricuspid valve with trace physiologic regurgitation. Normal right ventricular systolic pressure. suboptimal study. Chest x-ray done 02/19/2019 shows: There is mild atelectasis at the lung bases, unchanged. Mild pulmonary edema is unchanged. The heart size is normal. There are small bilateral pleural effusions. There is no pneumothorax. cxr 02/22 reviewed 1. Interval decreased central pulmonary vascular congestion. 2. Stable cardiomegaly with aortic atherosclerosis. 3. Stable position of support devices. CXR 03/01 Cardiomegaly. Blunted bilateral costophrenic angles that may reflect small pleural effusions. Atelectasis versus minimal infiltrates in the perihilar left lower lobe. Scattered atelectasis in the remainder the lungs. Hypoinflated lungs. Objective Vitals Vital Signs Date Temp Pulse Resp B/P (MAP) Pulse Ox O2 O2 Flow FiO2 Time Delivery Rate 03/05/19 98.5 73 20 153/68 95 Room Air 11:43 (96) 03/05/19 2.0 08:58 Intake and Output 03/04/19 03/04/19 03/05/19 1515:00 23:00 07:00 IntakeIntake Total 360 ml 450 ml BalanceBalance 360 ml 450 ml Results/Medications Result Diagram: 03/02/19 0520 03/05/19 0448 Results 24 hrs Laboratory Tests Test 03/04/19 17:45 03/04/19 21:15 03/05/19 02:47 03/05/19 04:48 Bedside Glucose 155 153 103 Sodium Level 144 Potassium Level 4.0 Chloride Level 104 Carbon Dioxide Level 31 Anion Gap 9 Blood Urea Nitrogen 40 H Creatinine 1.44 H Est Glomerular Filtrat Rate mL/min Glucose Level 94 # Calcium Level 9.3 Magnesium Level 1.9 Total Bilirubin 0.4 Direct Bilirubin 0.00 Indirect Bilirubin 0.4 Aspartate Amino 33 Transf (AST/SGOT) Alanine 50 Aminotransferase (AL T/SGPT) Alkaline Phosphatase 112 B-Type Natriuretic 2310 H Peptide Total Protein 6.8 Albumin 3.4 Globulin 3.40 H Albumin/Globulin 1.00 Ratio Test 03/05/19 08:54 03/05/19 12:17 Bedside Glucose 189 97 Home Meds Reported Medications Insulin Glargine,Hum.rec.anlog (Basaglar Kwikpen U-100) 100 Unit/1 Ml Insuln.pen, 0-12 UNIT SC QHS for PER SLIDING SCALE, EA 02/12/19 Insulin Aspart* (Novolog Insulin Pen*) 100 Unit/Ml Soln, 0-12 SC .SLIDING SCALE AC, EA 02/12/19 Dulaglutide (Trulicity) 1.5 Mg/0.5 Ml Pen.injctr, 1.5 MG SQ WEEKLY 02/12/19 Aspirin* (Aspirin* Chew) 81 Mg Tab.chew, 81 MG PO DAILY, TAB.CHEW 02/12/19 Clopidogrel Bisulfate (Clopidogrel) 75 Mg Tablet, 1 TAB ORAL DAILY 02/12/19 Tramadol HCl (Tramadol HCl) 50 Mg Tablet, 1 TAB ORAL Q6 PRN for PAIN LEVEL 4-6 02/12/19 Arginine Hcl (Arginine Hcl) 1 Gm Powder, 1 GM MC DAILY 02/12/19 Sacubitril/Valsartan (Entresto 49 mg-51 mg Tablet) 1 Each Tablet, 1 TAB ORAL DAILY 02/12/19 Atorvastatin* (Atorvastatin*) 80 Mg Tablet, 1 TAB ORAL QHS 02/12/19 Carvedilol* (Carvedilol*) 25 Mg Tablet, 1 TAB ORAL BID 02/12/19 Spironolactone* (Aldactone*) 25 Mg Tablet, 12.5 MG PO QAM, #60 TAB 02/12/19 Ampicillin Sodium-Sulbactam Sodium (Unasyn*) 3 Gm Soln, 3 GM IVPB Q6, VIAL 02/12/19 Medications Current Medications Ondansetron HCl (Zofran Inj) 4 mg Q6H PRN IV NAUSEA AND/OR VOMITING; Start 02/12/19 at 07:30 Ipratropium [place] (Atrovent Hfa) 2 puff Q2H RESP THERAPY PRN INH SHORTNESS OF BREATH; Start 02/12/19 at 07:30 Acetaminophen (Tylenol Liquid) 650 mg Q6H PRN PO PAIN LEVEL 1-3 OR FEVER Last administered on 02/28/19at 18:27; Admin Dose 650 MG; Start 02/12/19 at 07:30 Aspirin (Aspirin) 81 mg DAILY PO Last administered on 03/05/19at 09:01; Admin Dose 81 MG; Start 02/12/19 at 09:00 Miscellaneous Information 1 ea NOTE XX ; Start 02/12/19 at 09:30 Glucose (Glutose) 15 gm Q15M PRN PO DECREASED GLUCOSE; Start 02/12/19 at 09:30 Glucose (Glutose) 22.5 gm Q15M PRN PO DECREASED GLUCOSE; Start 02/12/19 at 09:30 Dextrose (D50w Syringe) 25 ml Q15M PRN IV DECREASED GLUCOSE Last administered on 02/25/19at 16:03; Admin Dose 25 ML; Start 02/12/19 at 09:30 Dextrose (D50w Syringe) 50 ml Q15M PRN IV DECREASED GLUCOSE Last administered on 02/25/19at 19:58; Admin Dose 50 ML; Start 02/12/19 at 09:30 Glucagon (Glucagen) 1 mg Q15M PRN IM DECREASED GLUCOSE; Start 02/12/19 at 09:30 Glucose (Glutose) 15 gm Q15M PRN BUCCAL DECREASED GLUCOSE; Start 02/12/19 at 09:30 Sodium Hypochlorite (Dakins Diluted (40)) 1 applic DAILY TP Last administered on 03/05/19 09:03; Admin Dose 1 APPLIC; Start 02/15/19 at 09:00 Albuterol/ Ipratropium (Duoneb) 3 ml Q2H RESP THERAPY PRN HHN SHORTNESS OF BREATH Last administered on 02/26/19 12:13; Admin Dose 3 ML; Start 02/19/19 at 19:00 Nystatin (Nystatin Oint) 1 applic BID TOP Last administered on 03/05/19 09:02; Admin Dose 1 APPLIC; Start 02/21/19 at 09:00 Diphenhydramine HCl (Benadryl) 25 mg Q6H PRN PO ITCHING Last administered on 03/04/19 22:02; Admin Dose 25 MG; Start 02/23/19 at 11:00 Collagenase (Santyl) 1 applic BID TOP Last administered on 03/05/19 09:03; Admin Dose 1 APPLIC; Start 02/24/19 at 10:30 Zinc Sulfate (Zinc Sulfate) 220 mg DAILY PO Last administered on 03/05/19 09:00; Admin Dose 220 MG; Start 02/26/19 at 12:00 Multivitamins Therapeutic (Theragran) 1 tab DAILY PO Last administered on 03/05/19 09:00; Admin Dose 1 TAB; Start 02/26/19 at 12:00 Spironolactone (Aldactone) 25 mg DAILY PO Last administered on 03/05/19 09:01; Admin Dose 25 MG; Start 02/26/19 at 17:30 Labetalol HCl (Labetalol) 10 mg Q6 PRN IV ELEVATED BLOOD PRESSURE Last administered on 02/28/19 00:33; Admin Dose 10 MG; Start 02/27/19 at 01:30 Lisinopril (Zestril) 5 mg BID PO Last administered on 03/05/19 09:01; Admin Dose 5 MG; Start 02/27/19 at 21:00 Atorvastatin Calcium (Lipitor) 80 mg QHS PO Last administered on 03/04/19 22:04; Admin Dose 80 MG; Start 02/28/19 at 21:00 Clopidogrel Bisulfate (plaVIX) 75 mg DAILY PO Last administered on 03/05/19 09:02; Admin Dose 75 MG; Start 02/28/19 at 09:00 Insulin Glargine (Lantus) 18 units BID SC Last administered on 03/05/19 09:23; Admin Dose 18 UNITS; Start 02/28/19 at 09:00 Nicotine (Nicoderm 21 Mg/ 24hr) 1 patch DAILY TRANSDERM Last administered on 03/05/19 09:03; Admin Dose 1 PATCH; Start 02/28/19 at 09:00 Hydralazine HCl (Apresoline) 10 mg Q4H PRN IV ELEVATED BLOOD PRESSURE Last administered on 03/04/19 10:15; Admin Dose 10 MG; Start 02/28/19 at 03:30 Loperamide HCl (Imodium Cap) 2 mg QID PRN PO DIARRHEA; Start 02/28/19 at 09:00 Tramadol HCl (Ultram) 50 mg Q6H PRN PO MODERATE PAIN LEVEL 4-6 Last administered on 03/03/19 10:12; Admin Dose 50 MG; Start 02/28/19 at 20:30 Insulin Aspart (Novolog Insulin Pen) NOVOLOG *MODERATE* ALGORITHM WITH MEALS BEDTIME SC Last administered on 03/05/19 08:58; Admin Dose 4 UNIT; Start 03/01/19 at 08:00 Diagnostic Test (Pha) (Accu-Chek) 1 ea 02 XX Last administered on 03/05/19 02:55; Admin Dose 1 EA; Start 03/01/19 at 02:00 Famotidine (Pepcid) 20 mg DAILY PO Last administered on 03/05/19 09:00; Admin Dose 20 MG; Start 03/02/19 at 09:00 Valproic Acid (Depakene) 250 mg TID PO Last administered on 03/05/19 12:16; Admin Dose 250 MG; Start 03/02/19 at 13:00 Furosemide (Lasix) 40 mg BID DIURETICS PO Last administered on 03/05/19 06:43; Admin Dose 40 MG; Start 03/02/19 at 18:00 Spironolactone (Aldactone) 25 mg DAILY PO ; Start 03/05/19 at 09:00 Carvedilol (Coreg) 12.5 mg BID PO ; Start 03/05/19 at 21:00 Assessment/Plan Hospital Course (Demo Recall) Acute hypoxemic respiratory failure status post intubation now extubated 02/25/19 Congestive heart failure: Acute on chronic secondary systolic heart failure Sepsis Coronary artery disease with history of AR History of ischemic cardiomyopathy ejection fraction of 35% History of multiple PCI Severe peripheral vascular disease status post left leg amputation as well as right leg severe PAD Hypertension diabetes dyslipidemia Hyponatremia Acute kidney injury; improved now Recommendations: Continue with aspirin and Plavix Continue with PO LASIX diabetic control as per internal medicine inc coreg 12.5 bid Antibiotic management as per internal medicine ID recommendations DVT prophylaxis GI prophylaxis as per internal medicine cont aldactone cont lisinopril replace electrolyte including potassium magnesium as needed Aspiration precaution Thank you for his referral. We will continue to follow along with you YOGI NICOLAS MD [facility] YOGI NICOLAS MD Mar 05, 2019 14:16
--- NOTE | 2019-03-05 14:26 | PN ---
Date/Time of Note Date/Time of Note DATE: 03/05/19 TIME: 14:25 Assessment/Plan VTE Prophylaxis Risk score (from Nsg)>0 risk: 13 Pharmacological prophylaxis: NA/contraindicated Pharm contraindication: other Lines/Catheters IV Catheter Type (from Nrsg): Mid Line Urinary Cath still in place: No Assessment/Plan Hospital Course 73 yo morbidly obese woman history of peripheral vascular disease, diabetes type II, CHF, likely COPD presents with acute respiratory failure due to CHF exacerba tion. #Acute respiratory failure- - CTPA negative for PE - Likely CHF exacerbation. Echocardiogram performed 5 days ago, shows ejection fraction 35% - Extubated 02/25 - Now breathing comfortably on room air. - Continue oral lasix - Possible transfer to [place] vs home. #Peripheral vascular disease - Cont aspirin, plavix, statin #Diabetic/vascular right foot ulcer - Patient also has outpatient vascular followup - Patient has failed R sided revascularization in the past; per Vascular Dr Naidu repeat attempt at revascularization would be unwise. - No debridement planned. Patient finished a course of IV zosyn and vanco. #Diabetes type II, insulin dependent. - A1c= 9.7 - continue sliding scale insulin #CHF -continue low-dose beta-nabeel per cardiology recommendations -Continue PO lasix #History of DVT - LE duplex negative for DVT. - Not currently on anticoagulation - Should be discharge on Eliquis or Xarelto. 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 GI: famotidine DVT: None DC planning: Patient is stable enough to return home, need to discuss whether or not family is capable of caring for patient, called daughter today but she did not pick up attendant Result Diagram: 03/02/19 0520 03/05/19 0448 Results 24hrs Laboratory Tests Test 03/04/19 17:45 03/04/19 21:15 03/05/19 02:47 03/05/19 04:48 Bedside Glucose 155 153 103 Sodium Level 144 Potassium Level 4.0 Chloride Level 104 Carbon Dioxide Level 31 Anion Gap 9 Blood Urea Nitrogen 40 H Creatinine 1.44 H Est Glomerular Filtrat Rate mL/min Glucose Level 94 # Calcium Level 9.3 Magnesium Level 1.9 Total Bilirubin 0.4 Direct Bilirubin 0.00 Indirect Bilirubin 0.4 Aspartate Amino 33 Transf (AST/SGOT) Alanine 50 Aminotransferase (AL T/SGPT) Alkaline Phosphatase 112 B-Type Natriuretic 2310 H Peptide Total Protein 6.8 Albumin 3.4 Globulin 3.40 H Albumin/Globulin 1.00 Ratio Test 03/05/19 08:54 03/05/19 12:17 Bedside Glucose 189 97 Subjective 24 Hr Interval Summary Constitutional: no complaints Exam/Review of Systems Exam Vitals Vital Signs Date Temp Pulse Resp B/P (MAP) Pulse Ox O2 O2 Flow FiO2 Time Delivery Rate 03/05/19 98.5 73 20 153/68 95 Room Air 11:43 (96) 03/05/19 2.0 08:58 Intake and Output 03/04/19 03/04/19 03/05/19 1515:00 23:00 07:00 IntakeIntake Total 360 ml 450 ml BalanceBalance 360 ml 450 ml Constitutional: alert, oriented Respiratory: clear to auscultation Cardiovascular: regular rate and rhythm Gastrointestinal: soft; No distended Musculoskeletal: No nl extremities to inspection Results Results 24hrs Laboratory Tests Test 03/04/19 17:45 03/04/19 21:15 03/05/19 02:47 03/05/19 04:48 Bedside Glucose 155 153 103 Sodium Level 144 Potassium Level 4.0 Chloride Level 104 Carbon Dioxide Level 31 Anion Gap 9 Blood Urea Nitrogen 40 H Creatinine 1.44 H Est Glomerular Filtrat Rate mL/min Glucose Level 94 # Calcium Level 9.3 Magnesium Level 1.9 Total Bilirubin 0.4 Direct Bilirubin 0.00 Indirect Bilirubin 0.4 Aspartate Amino 33 Transf (AST/SGOT) Alanine 50 Aminotransferase (AL T/SGPT) Alkaline Phosphatase 112 B-Type Natriuretic 2310 H Peptide Total Protein 6.8 Albumin 3.4 Globulin 3.40 H Albumin/Globulin 1.00 Ratio Test 03/05/19 08:54 03/05/19 12:17 Bedside Glucose 189 97 Medications Medication Current Medications Ondansetron HCl (Zofran Inj) 4 mg Q6H PRN IV NAUSEA AND/OR VOMITING; Start 02/12/19 at 07:30 Ipratropium [place] (Atrovent Hfa) 2 puff Q2H RESP THERAPY PRN INH SHORTNESS OF BREATH; Start 02/12/19 at 07:30 Acetaminophen (Tylenol Liquid) 650 mg Q6H PRN PO PAIN LEVEL 1-3 OR FEVER Last administered on 02/28/19at 18:27; Admin Dose 650 MG; Start 02/12/19 at 07:30 Aspirin (Aspirin) 81 mg DAILY PO Last administered on 03/05/19 09:01; Admin Dose 81 MG; Start 02/12/19 at 09:00 Miscellaneous Information 1 ea NOTE XX ; Start 02/12/19 at 09:30 Glucose (Glutose) 15 gm Q15M PRN PO DECREASED GLUCOSE; Start 02/12/19 at 09:30 Glucose (Glutose) 22.5 gm Q15M PRN PO DECREASED GLUCOSE; Start 02/12/19 at 09:30 Dextrose (D50w Syringe) 25 ml Q15M PRN IV DECREASED GLUCOSE Last administered on 02/25/19at 16:03; Admin Dose 25 ML; Start 02/12/19 at 09:30 Dextrose (D50w Syringe) 50 ml Q15M PRN IV DECREASED GLUCOSE Last administered on 02/25/19at 19:58; Admin Dose 50 ML; Start 02/12/19 at 09:30 Glucagon (Glucagen) 1 mg Q15M PRN IM DECREASED GLUCOSE; Start 02/12/19 at 09:30 Glucose (Glutose) 15 gm Q15M PRN BUCCAL DECREASED GLUCOSE; Start 02/12/19 at 09:30 Sodium Hypochlorite (Dakins Diluted (140)) 1 applic DAILY TP Last administered on 03/05/19at 09:03; Admin Dose 1 APPLIC; Start 02/15/19 at 09:00 Albuterol/ Ipratropium (Duoneb) 3 ml Q2H RESP THERAPY PRN HHN SHORTNESS OF BREATH Last administered on 02/26/19at 12:13; Admin Dose 3 ML; Start 02/19/19 at 19:00 Nystatin (Nystatin Oint) 1 applic BID TOP Last administered on 03/05/19 09:02; Admin Dose 1 APPLIC; Start 02/21/19 at 09:00 Diphenhydramine HCl (Benadryl) 25 mg Q6H PRN PO ITCHING Last administered on 03/04/19at 22:02; Admin Dose 25 MG; Start 02/23/19 at 11:00 Collagenase (Santyl) 1 applic BID TOP Last administered on 03/05/19 09:03; Admin Dose 1 APPLIC; Start 02/24/19 at 10:30 Zinc Sulfate (Zinc Sulfate) 220 mg DAILY PO Last administered on 03/05/19 09:00; Admin Dose 220 MG; Start 02/26/19 at 12:00 Multivitamins Therapeutic (Theragran) 1 tab DAILY PO Last administered on 03/05/19 09:00; Admin Dose 1 TAB; Start 02/26/19 at 12:00 Spironolactone (Aldactone) 25 mg DAILY PO Last administered on 03/05/19 09:01; Admin Dose 25 MG; Start 02/26/19 at 17:30 Labetalol HCl (Labetalol) 10 mg Q6 PRN IV ELEVATED BLOOD PRESSURE Last administered on 02/28/19 00:33; Admin Dose 10 MG; Start 02/27/19 at 01:30 Lisinopril (Zestril) 5 mg BID PO Last administered on 03/05/19 09:01; Admin Dose 5 MG; Start 02/27/19 at 21:00 Atorvastatin Calcium (Lipitor) 80 mg QHS PO Last administered on 03/04/19 22:04; Admin Dose 80 MG; Start 02/28/19 at 21:00 Clopidogrel Bisulfate (plaVIX) 75 mg DAILY PO Last administered on 03/05/19 09:02; Admin Dose 75 MG; Start 02/28/19 at 09:00 Insulin Glargine (Lantus) 18 units BID SC Last administered on 03/05/19 09:23; Admin Dose 18 UNITS; Start 02/28/19 at 09:00 Nicotine (Nicoderm 21 Mg/ 24hr) 1 patch DAILY TRANSDERM Last administered on 03/05/19 09:03; Admin Dose 1 PATCH; Start 02/28/19 at 09:00 Hydralazine HCl (Apresoline) 10 mg Q4H PRN IV ELEVATED BLOOD PRESSURE Last administered on 03/04/19 10:15; Admin Dose 10 MG; Start 02/28/19 at 03:30 Loperamide HCl (Imodium Cap) 2 mg QID PRN PO DIARRHEA; Start 02/28/19 at 09:00 Tramadol HCl (Ultram) 50 mg Q6H PRN PO MODERATE PAIN LEVEL 4-6 Last administered on 03/03/19 10:12; Admin Dose 50 MG; Start 02/28/19 at 20:30 Insulin Aspart (Novolog Insulin Pen) NOVOLOG *MODERATE* ALGORITHM WITH MEALS BEDTIME SC Last administered on 03/05/19at 08:58; Admin Dose 4 UNIT; Start 03/01/19 at 08:00 Diagnostic Test (Pha) (Accu-Chek) 1 ea 02 XX Last administered on 03/05/19at 02:55; Admin Dose 1 EA; Start 03/01/19 at 02:00 Famotidine (Pepcid) 20 mg DAILY PO Last administered on 03/05/19at 09:00; Admin Dose 20 MG; Start 03/02/19 at 09:00 Valproic Acid (Depakene) 250 mg TID PO Last administered on 03/05/19at 12:16; Ad min Dose 250 MG; Start 03/02/19 at 13:00 Furosemide (Lasix) 40 mg BID DIURETICS PO Last administered on 03/05/19at 06:43; Admin Dose 40 MG; Start 03/02/19 at 18:00 Spironolactone (Aldactone) 25 mg DAILY PO ; Start 03/05/19 at 09:00 Carvedilol (Coreg) 12.5 mg BID PO ; Start 03/05/19 at 21:00 EDVIN PANTOJA Mar 05, 2019 14:26
[2019-03-05 15:41] VITALS: BP 166/75; PULSE 84; RESP 20
[2019-03-05 18:34] VITALS: BP 152/67; PULSE 86
[2019-03-05 19:52] VITALS: BP 135/62; PULSE 85; RESP 19
[2019-03-05] MEDS: ATORVASTATIN 80 MG TAB PO SCH (21:50)
[2019-03-05] MEDS: DIPHENHYDRAMINE 25 MG CAP PO PRN (22:19)
[2019-03-06] VITALS: BP 137/64; PULSE 82; RESP 19
[2019-03-06] MEDS: ACCU-CHEK XX SCH (02:00)
[2019-03-06 03:50] VITALS: BP 139/66; PULSE 81; RESP 18
[2019-03-06] MEDS: FUROSEMIDE 40 MG TAB PO SCH ×2 (06:50→17:08)
[2019-03-06 08:00] VITALS: BP 148/66; PULSE 70; RESP 19
[2019-03-06] MEDS: VALPROIC ACID 250 MG CAP PO SCH ×3 (08:29→21:07)
[2019-03-06] MEDS: ASPIRIN 81 MG TAB PO SCH (08:29)
[2019-03-06] MEDS: MULTIVITAMINS THERAPEUTIC TAB PO SCH (08:29)
[2019-03-06] MEDS: FAMOTIDINE 20 MG TAB PO SCH (08:29)
[2019-03-06] MEDS: ZINC SULFATE 220 MG CAP PO SCH (08:29)
[2019-03-06] MEDS: LISINOPRIL 5 MG TAB PO SCH ×2 (08:29→21:12)
[2019-03-06] MEDS: COLLAGENASE 5 GM (UD JAR) TOP SCH ×2 (08:30→21:08)
[2019-03-06] MEDS: NICOTINE (21 MG/24 HR) PATCH TRANSDERM SCH (08:30)
[2019-03-06] MEDS: BALSAM PERU/CASTOR OIL 60 GM TUBE TOP SCH ×2 (08:31→21:10)
[2019-03-06] MEDS: NYSTATIN 15 GM OINT TOP SCH ×2 (08:31→21:10)
[2019-03-06] MEDS: DAKINS 0.0125%(1/40) 473 ML SOLUTION TP SCH (08:32)
[2019-03-06] MEDS: SPIRONOLACTONE 25 MG TAB PO SCH ×2 (09:00→09:46)
[2019-03-06] MEDS: INSULIN GLARGINE [LANTus] (100 UNITS/ML) SYG SC SCH ×2 (09:30→21:49)
[2019-03-06] MEDS: INSULIN ASPART [NOVOLOG] 3 ML PEN SC SCH ×4 (09:30→21:49)
[2019-03-06] MEDS: CLOPIDOGREL 75 MG TAB PO SCH (09:46)
--- NOTE | 2019-03-06 10:40 | CONS ---
Consult Date/Type/Reason Admit Date/Time Feb 12, 2019 at 04:44 Initial Consult Date 02/20/19 Type of Consultation: cv Requesting Provider: PATSY JONES Date/Time of Note DATE: 03/06/19 TIME: 10:39 Subjective Cardiology follow-up progress note Subjective: Case discussed with staff and telemetry was reviewed. Patient has remained in normal sinus rhythm Patient is still confused Patient is not hypoxemic Patient is extubated 02/25/19 blood pressure has remained stable /high now There is no report of any chest pain or pressure Objective: General: Obese female no acute distress HEENT: NC/AT. pupils are equal. round. NECK: Unable to assess for JVD. no stridor. CV: RRR. systolic murmur; no gallop or rubs. PULM: no wheezing minimal rhonchi. 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 Right leg wound noted neuro: Awake . oriented x1 at least Psych: calm rectal: deferred : Deferred Echocardiogram was personally reviewed which shows: Normal left ventricular cavity size. Mild concentric left ventricular hypertrophy. Moderate left ventricular systolic dysfunction. Ejection fraction is visually estimated at 35 %. Tissue Doppler/Mitral Doppler indices are consistent with impaired relaxation (Stage I diastolic dysfunction). Multiple segmental wall motion abnormalities. Mitral valve leaflets appear mildly thickened. Mild mitral annular calcification. Trace mitral regurgitation. Normal appearance and function of the tricuspid valve with trace physiologic regurgitation. Normal right ventricular systolic pressure. suboptimal study. Chest x-ray done 02/19/2019 shows: There is mild atelectasis at the lung bases, unchanged. Mild pulmonary edema is unchanged. The heart size is normal. There are small bilateral pleural effusions. There is no pneumothorax. cxr 02/22 reviewed 1. Interval decreased central pulmonary vascular congestion. 2. Stable cardiomegaly with aortic atherosclerosis. 3. Stable position of support devices. CXR 03/01 Cardiomegaly. Blunted bilateral costophrenic angles that may reflect small pleural effusions. Atelectasis versus minimal infiltrates in the perihilar left lower lobe. Scattered atelectasis in the remainder the lungs. Hypoinflated lungs. Objective Vitals Vital Signs Date Temp Pulse Resp B/P (MAP) Pulse Ox O2 O2 Flow FiO2 Time Delivery Rate 03/06/19 97.2 70 19 148/66 96 Room Air 08:00 (93) 03/06/19 2.0 07:43 Intake and Output 03/05/19 03/05/19 03/06/19 1515:00 23:00 07:00 IntakeIntake Total 200 ml 220 ml 100 ml OutputOutput Total 200 ml 350 ml 300 ml BalanceBalance 0 ml -130 ml -200 ml Results/Medications Result Diagram: 03/02/19 0520 03/05/19 0448 Results 24 hrs Laboratory Tests Test 03/05/19 12:17 03/05/19 17:33 03/05/19 21:43 03/06/19 03:32 Bedside Glucose 97 103 210 120 Test 03/06/19 08:28 Bedside Glucose 167 Home Meds Reported Medications Insulin Glargine,Hum.rec.anlog (Basaglar Kwikpen U-100) 100 Unit/1 Ml Insuln.pen, 0-12 UNIT SC QHS for PER SLIDING SCALE, EA 02/12/19 Insulin Aspart* (Novolog Insulin Pen*) 100 Unit/Ml Soln, 0-12 SC .SLIDING SCALE AC, EA 02/12/19 Dulaglutide (Trulicity) 1.5 Mg/0.5 Ml Pen.injctr, 1.5 MG SQ WEEKLY 02/12/19 Aspirin* (Aspirin* Chew) 81 Mg Tab.chew, 81 MG PO DAILY, TAB.CHEW 02/12/19 Clopidogrel Bisulfate (Clopidogrel) 75 Mg Tablet, 1 TAB ORAL DAILY 02/12/19 Tramadol HCl (Tramadol HCl) 50 Mg Tablet, 1 TAB ORAL Q6 PRN for PAIN LEVEL 4-6 02/12/19 Arginine Hcl (Arginine Hcl) 1 Gm Powder, 1 GM MC DAILY 02/12/19 Sacubitril/Valsartan (Entresto 49 mg-51 mg Tablet) 1 Each Tablet, 1 TAB ORAL DAILY 02/12/19 Atorvastatin* (Atorvastatin*) 80 Mg Tablet, 1 TAB ORAL QHS 02/12/19 Carvedilol* (Carvedilol*) 25 Mg Tablet, 1 TAB ORAL BID 02/12/19 Spironolactone* (Aldactone*) 25 Mg Tablet, 12.5 MG PO QAM, #60 TAB 02/12/19 Ampicillin Sodium-Sulbactam Sodium (Unasyn*) 3 Gm Soln, 3 GM IVPB Q6, VIAL 02/12/19 Medications Current Medications Ondansetron HCl (Zofran Inj) 4 mg Q6H PRN IV NAUSEA AND/OR VOMITING; Start 02/12/19 at 07:30 Ipratropium [place] (Atrovent Hfa) 2 puff Q2H RESP THERAPY PRN INH SHORTNESS OF BREATH; Start 02/12/19 at 07:30 Acetaminophen (Tylenol Liquid) 650 mg Q6H PRN PO PAIN LEVEL 1-3 OR FEVER Last administered on 02/28/19 18:27; Admin Dose 650 MG; Start 02/12/19 at 07:30 Aspirin (Aspirin) 81 mg DAILY PO Last administered on 03/06/19 08:29; Admin Dose 81 MG; Start 02/12/19 at 09:00 Miscellaneous Information 1 ea NOTE XX ; Start 02/12/19 at 09:30 Glucose (Glutose) 15 gm Q15M PRN PO DECREASED GLUCOSE; Start 02/12/19 at 09:30 Glucose (Glutose) 22.5 gm Q15M PRN PO DECREASED GLUCOSE; Start 02/12/19 at 09:30 Dextrose (D50w Syringe) 25 ml Q15M PRN IV DECREASED GLUCOSE Last administered on 02/25/19at 16:03; Admin Dose 25 ML; Start 02/12/19 at 09:30 Dextrose (D50w Syringe) 50 ml Q15M PRN IV DECREASED GLUCOSE Last administered on 02/25/19at 19:58; Admin Dose 50 ML; Start 02/12/19 at 09:30 Glucagon (Glucagen) 1 mg Q15M PRN IM DECREASED GLUCOSE; Start 02/12/19 at 09:30 Glucose (Glutose) 15 gm Q15M PRN BUCCAL DECREASED GLUCOSE; Start 02/12/19 at 09:30 Sodium Hypochlorite (Dakins Diluted (40)) 1 applic DAILY TP Last administered on 03/06/19at 08:32; Admin Dose 1 APPLIC; Start 02/15/19 at 09:00 Albuterol/ Ipratropium (Duoneb) 3 ml Q2H RESP THERAPY PRN HHN SHORTNESS OF [place]AL[place] ATH Last administered on 02/26/19at 12:13; Admin Dose 3 ML; Start 02/19/19 at 19:00 Nystatin (Nystatin Oint) 1 applic BID TOP Last administered on 03/06/19 08:31; Admin Dose 1 APPLIC; Start 02/21/19 at 09:00 Diphenhydramine HCl (Benadryl) 25 mg Q6H PRN PO ITCHING Last administered on 03/05/19 22:19; Admin Dose 25 MG; Start 02/23/19 at 11:00 Collagenase (Santyl) 1 applic BID TOP Last administered on 03/06/19 08:30; Admin Dose 1 APPLIC; Start 02/24/19 at 10:30 Zinc Sulfate (Zinc Sulfate) 220 mg DAILY PO Last administered on 03/06/19 08:29; Admin Dose 220 MG; Start 02/26/19 at 12:00 Multivitamins Therapeutic (Theragran) 1 tab DAILY PO Last administered on 03/06/19 08:29; Admin Dose 1 TAB; Start 02/26/19 at 12:00 Spironolactone (Aldactone) 25 mg DAILY PO Last administered on 03/06/19 09:46; Admin Dose 25 MG; Start 02/26/19 at 17:30 Labetalol HCl (Labetalol) 10 mg Q6 PRN IV ELEVATED BLOOD PRESSURE Last administered on 02/28/19 00:33; Admin Dose 10 MG; Start 02/27/19 at 01:30 Lisinopril (Zestril) 5 mg BID PO Last administered on 03/06/19 08:29; Admin Dose 5 MG; Start 02/27/19 at 21:00 Atorvastatin Calcium (Lipitor) 80 mg QHS PO Last administered on 03/05/19 21:50; Admin Dose 80 MG; Start 02/28/19 at 21:00 Clopidogrel Bisulfate (plaVIX) 75 mg DAILY PO Last administered on 03/06/19 09:46; Admin Dose 75 MG; Start 02/28/19 at 09:00 Insulin Glargine (Lantus) 18 units BID SC Last administered on 03/06/19 09:30; Admin Dose 18 UNITS; Start 02/28/19 at 09:00 Nicotine (Nicoderm 21 Mg/ 24hr) 1 patch DAILY TRANSDERM Last administered on 03/06/19 08:30; Admin Dose 1 PATCH; Start 02/28/19 at 09:00 Hydralazine HCl (Apresoline) 10 mg Q4H PRN IV ELEVATED BLOOD PRESSURE Last administered on 03/04/19 10:15; Admin Dose 10 MG; Start 02/28/19 at 03:30 Loperamide HCl (Imodium Cap) 2 mg QID PRN PO DIARRHEA; Start 02/28/19 at 09:00 Tramadol HCl (Ultram) 50 mg Q6H PRN PO MODERATE PAIN LEVEL 4-6 Last administered on 03/03/19 10:12; Admin Dose 50 MG; Start 02/28/19 at 20:30 Insulin Aspart (Novolog Insulin Pen) NOVOLOG *MODERATE* ALGORITHM WITH MEALS BEDTIME SC Last administered on 03/06/19 09:30; Admin Dose 2 UNIT; Start 03/01/19 at 08:00 Diagnostic Test (Pha) (Accu-Chek) 1 ea 02 XX Last administered on 03/06/19 02:00; Admin Dose 1 EA; Start 03/01/19 at 02:00 Famotidine (Pepcid) 20 mg DAILY PO Last administered on 03/06/19 08:29; Admin Dose 20 MG; Start 03/02/19 at 09:00 Valproic Acid (Depakene) 250 mg TID PO Last administered on 03/06/19 08:29; Admin Dose 250 MG; Start 03/02/19 at 13:00 Furosemide (Lasix) 40 mg BID DIURETICS PO Last administered on 03/06/19 06:50; Admin Dose 40 MG; Start 03/02/19 at 18:00 Spironolactone (Aldactone) 25 mg DAILY PO ; Start 03/05/19 at 09:00 Carvedilol (Coreg) 12.5 mg BID PO Last administered on 03/06/19 08:29; Admin Dose 12.5 MG; Start 03/05/19 at 21:00 Assessment/Plan Hospital Course (Demo Recall) Acute hypoxemic respiratory failure status post intubation now extubated 02/25/19 Congestive heart failure: Acute on chronic secondary systolic heart failure Sepsis Coronary artery disease with history of IA History of ischemic cardiomyopathy ejection fraction of 35% History of multiple PCI Severe peripheral vascular disease status post left leg amputation as well as right leg severe PAD Hypertension diabetes dyslipidemia Hyponatremia Acute kidney injury; improved now Recommendations: Continue with aspirin and Plavix Continue with LASIX diabetic control as per internal medicine inc coreg 12.5 bid Antibiotic management as per internal medicine ID recommendations DVT prophylaxis GI prophylaxis as per internal medicine cont aldactone cont lisinopril replace electrolyte including potassium magnesium as needed Aspiration precaution Thank you for his referral. We will continue to follow along with you YOGI NICOLAS MD [facility] YOGI NICOLAS MD Mar 06, 2019 10:40
--- NOTE | 2019-03-06 11:43 | CONS ---
Consult Date/Type/Reason Admit Date/Time Feb 12, 2019 at 04:44 Initial Consult Date 02/20/19 Type of Consult Pulmonary Requesting Provider: PATSY JONES Date/Time of Note DATE: 03/06/19 TIME: 11:43 Subjective Patient appears comfortable this morning still requiring a sitter. No respiratory distress. Objective Vital Signs Date Temp Pulse Resp B/P (MAP) Pulse Ox O2 O2 Flow FiO2 Time Delivery Rate 03/06/19 97.2 70 19 148/66 96 Room Air 08:00 (93) 03/06/19 2.0 07:43 Intake and Output 03/05/19 03/05/19 03/06/19 1515:00 23:00 07:00 IntakeIntake Total 200 ml 220 ml 100 ml OutputOutput Total 200 ml 350 ml 300 ml BalanceBalance 0 ml -130 ml -200 ml Exam GENERAL: Elderly appearing lady comfortable at rest VITAL SIGNS: per chart NECK: Supple. No JVD or lymphadenopathy. CARDIAC EXAM: S1, S2. No added sounds or murmurs. CHEST: clear bilaterally, No added sounds, rales or wheezes ABDOMEN: Soft, nontender. No guarding or rebound. EXTREMITIES: No cyanosis, clubbing or edema. NEUROLOGIC: Generalized weakness. No focal deficits. Vent Setting Ventilator Support Mode: CPAP, PS Fraction of Inspired Oxygen pe: 30 Positive End Expiratory Pressu: 5.0 Results/Medications Result Diagram: 03/02/19 0520 03/05/19 0448 Results 24 hrs Laboratory Tests Test 03/05/19 12:17 03/05/19 17:33 03/05/19 21:43 03/06/19 03:32 Bedside Glucose 97 103 210 120 Test 03/06/19 08:28 Bedside Glucose 167 Medications Current Medications Ondansetron HCl (Zofran Inj) 4 mg Q6H PRN IV NAUSEA AND/OR VOMITING; Start 02/12/19 at 07:30 Ipratropium [place] (Atrovent Hfa) 2 puff Q2H RESP THERAPY PRN INH SHORTNESS OF BREATH; Start 02/12/19 at 07:30 Acetaminophen (Tylenol Liquid) 650 mg Q6H PRN PO PAIN LEVEL 1-3 OR FEVER Last administered on 02/28/19at 18:27; Admin Dose 650 MG; Start 02/12/19 at 07:30 Aspirin (Aspirin) 81 mg DAILY PO Last administered on 03/06/19 08:29; Admin Dose 81 MG; Start 02/12/19 at 09:00 Miscellaneous Information 1 ea NOTE XX ; Start 02/12/19 at 09:30 Glucose (Glutose) 15 gm Q15M PRN PO DECREASED GLUCOSE; Start 02/12/19 at 09:30 Glucose (Glutose) 22.5 gm Q15M PRN PO DECREASED GLUCOSE; Start 02/12/19 at 09:30 Dextrose (D50w Syringe) 25 ml Q15M PRN IV DECREASED GLUCOSE Last administered on 02/25/19at 16:03; Admin Dose 25 ML; Start 02/12/19 at 09:30 Dextrose (D50w Syringe) 50 ml Q15M PRN IV DECREASED GLUCOSE Last administered on 02/25/19at 19:58; Admin Dose 50 ML; Start 02/12/19 at 09:30 Glucagon (Glucagen) 1 mg Q15M PRN IM DECREASED GLUCOSE; Start 02/12/19 at 09:30 Glucose (Glutose) 15 gm Q15M PRN BUCCAL DECREASED GLUCOSE; Start 02/12/19 at 09:30 Sodium Hypochlorite (Dakins Diluted (1/40)) 1 applic DAILY TP Last administered on 03/06/19 08:32; Admin Dose 1 APPLIC; Start 02/15/19 at 09:00 Albuterol/ Ipratropium (Duoneb) 3 ml Q2H RESP THERAPY PRN HHN SHORTNESS OF BREATH Last administered on 02/26/19at 12:13; Admin Dose 3 ML; Start 02/19/19 at 19:00 Nystatin (Nystatin Oint) 1 applic BID TOP Last administered on 03/06/19 08:31; Admin Dose 1 APPLIC; Start 02/21/19 at 09:00 Diphenhydramine HCl (Benadryl) 25 mg Q6H PRN PO ITCHING Last administered on 03/05/19 22:19; Admin Dose 25 MG; Start 02/23/19 at 11:00 Collagenase (Santyl) 1 applic BID TOP Last administered on 03/06/19 08:30; Admin Dose 1 APPLIC; Start 02/24/19 at 10:30 Zinc Sulfate (Zinc Sulfate) 220 mg DAILY PO Last administered on 03/06/19 08:29; Admin Dose 220 MG; Start 02/26/19 at 12:00 Multivitamins Therapeutic (Theragran) 1 tab DAILY PO Last administered on 03/06/19 08:29; Admin Dose 1 TAB; Start 02/26/19 at 12:00 Spironolactone (Aldactone) 25 mg DAILY PO Last administered on 03/06/19 09:46; Admin Dose 25 MG; Start 02/26/19 at 17:30 Labetalol HCl (Labetalol) 10 mg Q6 PRN IV ELEVATED BLOOD PRESSURE Last administered on 02/28/19 00:33; Admin Dose 10 MG; Start 02/27/19 at 01:30 Lisinopril (Zestril) 5 mg BID PO Last administered on 03/06/19 08:29; Admin Dose 5 MG; Start 02/27/19 at 21:00 Atorvastatin Calcium (Lipitor) 80 mg QHS PO Last administered on 03/05/19 21:50; Admin Dose 80 MG; Start 02/28/19 at 21:00 Clopidogrel Bisulfate (plaVIX) 75 mg DAILY PO Last administered on 03/06/19 09:46; Admin Dose 75 MG; Start 02/28/19 at 09:00 Insulin Glargine (Lantus) 18 units BID SC Last administered on 03/06/19 09:30; Admin Dose 18 UNITS; Start 02/28/19 at 09:00 Nicotine (Nicoderm 21 Mg/ 24hr) 1 patch DAILY TRANSDERM Last administered on 03/06/19 08:30; Admin Dose 1 PATCH; Start 02/28/19 at 09:00 Hydralazine HCl (Apresoline) 10 mg Q4H PRN IV ELEVATED BLOOD PRESSURE Last administered on 03/04/19 10:15; Admin Dose 10 MG; Start 02/28/19 at 03:30 Loperamide HCl (Imodium Cap) 2 mg QID PRN PO DIARRHEA; Start 02/28/19 at 09:00 Tramadol HCl (Ultram) 50 mg Q6H PRN PO MODERATE PAIN LEVEL 4-6 Last administered on 03/03/19 10:12; Admin Dose 50 MG; Start 02/28/19 at 20:30 Insulin Aspart (Novolog Insulin Pen) NOVOLOG *MODERATE* ALGORITHM WITH MEALS BEDTIME SC Last administered on 03/06/19 09:30; Admin Dose 2 UNIT; Start 03/01/19 at 08:00 Diagnostic Test (Pha) (Accu-Chek) 1 ea 02 XX Last administered on 03/06/19 02:00; Admin Dose 1 EA; Start 03/01/19 at 02:00 Famotidine (Pepcid) 20 mg DAILY PO Last administered on 03/06/19 08:29; Admin Dose 20 MG; Start 03/02/19 at 09:00 Valproic Acid (Depakene) 250 mg TID PO Last administered on 03/06/19 08:29; Admin Dose 250 MG; Start 03/02/19 at 13:00 Furosemide (Lasix) 40 mg BID DIURETICS PO Last administered on 03/06/19 06:50; Admin Dose 40 MG; Start 03/02/19 at 18:00 Spironolactone (Aldactone) 25 mg DAILY PO ; Start 03/05/19 at 09:00 Carvedilol (Coreg) 12.5 mg BID PO Last administered on 03/06/19 08:29; Admin Dose 12.5 MG; Start 03/05/19 at 21:00 Assessment/Plan Hospital Course (Demo Recall) IMP: 1. s/p Acute hypoxemic respiratory failure 2. Likely acute tracheobronchitis with congestive cardiac failure 3. Peripheral vascular disease 4. History of diabetes mellitus 5. History of coronary artery disease status post coronary intervention 6. Encephalopathy toxic metabolic RECS: 1. Aspiration precautions 2. Increase free H20 3. BDs/CPT 4. Psych recommendations regarding encephalopathy/dementia Consider transfer to [facility]. KAYLAH OMALLEY MD, [facility] Mar 06, 2019 11:43
[2019-03-06 11:45] VITALS: BP 146/67; PULSE 71; RESP 18
[2019-03-06 15:44] VITALS: BP 138/81; PULSE 76; RESP 18
--- NOTE | 2019-03-06 16:13 | PN ---
Date/Time of Note Date/Time of Note DATE: 03/06/19 TIME: 15:48 Assessment/Plan VTE Prophylaxis Risk score (from Ns)>0 risk: 13 SCD applied (from Ns): Yes Pharmacological prophylaxis: apixaban Lines/Catheters IV Catheter Type (from Nrs): Mid Line Urinary Cath still in place: No Assessment/Plan Assessment/Plan 1. Congestive heart failure: Acute on chronic, systolic with LVEF 35%, stable on coreg, lisinopril, aldactone and lasix 2. Acute hypoxemic respiratory failure s/p intubation/extubated on 02/25/19 3. Coronary artery disease with history of CO, s/p multiple PCIs, on aspirin, plavix, and lipitor 4. Severe peripheral vascular disease status post left leg amputation as well as right leg severe PAD, failed R sided revascularization in the past; per Vascular Dr Naidu repeat attempt at revascularization would be unwise. 5. Hypertension, controlled 6. Diabetes, on insulin 7. Dyslipidemia, on lipitor 8. Acute kidney injury; follow up with BMP 8. Right great toe ulcer, heaing, finished antibiotics 9. History of DVT, LE duplex negative for DVT, resume eliquis 10. 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 11. DVT prophylaxis: eliquis Result Diagram: 03/02/19 0520 03/05/19 0448 Results 24hrs Laboratory Tests Test 03/05/19 17:33 03/05/19 21:43 03/06/19 03:32 03/06/19 08:28 Bedside Glucose 103 210 120 167 Test 03/06/19 11:56 Bedside Glucose 187 Subjective 24 Hr Interval Summary Free Text/Dictation no shortness of breath or chest pain Exam/Review of Systems Exam Vitals Vital Signs Date Temp Pulse Resp B/P (MAP) Pulse Ox O2 O2 Flow FiO2 Time Delivery Rate 03/06/19 97.5 71 18 146/67 95 Room Air 11:45 (93) 03/06/19 2.0 07:43 Intake and Output 03/05/19 03/05/19 03/06/19 1515:00 23:00 07:00 IntakeIntake Total 200 ml 220 ml 100 ml OutputOutput Total 200 ml 350 ml 300 ml BalanceBalance 0 ml -130 ml -200 ml Constitutional: alert, oriented, well developed Psych: no complaints, nl mood/affect Head: normocephalic, atraumatic Eyes: nl conjunctiva, EOMI, nl lids ENMT: nl external ears & nose, nl lips & teeth, nl nasal mucosa & septum Neck: supple, non-tender Respiratory: clear to auscultation, normal air movement Cardiovascular: regular rate and rhythm, nl pulses; No bruits, No diastolic murmur, No edema, No gallop, No irregular rhythm, No jugular venous distention (JVD), No murmurs/extra sounds, No rub, No systolic murmur, No S3, No S4, No other Gastrointestinal: soft, nl liver, spleen, non-tender Musculoskeletal: nl extremities to inspection (left AKA) Extremities: normal pulses; No calf tenderness, No cyanosis, No clubbing, No edema, No pitting pedal edema, No palpable cord, No tenderness, No other 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, nl mental status, nl speech, nl strength Results Results 24hrs Laboratory Tests Test 03/05/19 17:33 03/05/19 21:43 03/06/19 03:32 03/06/19 08:28 Bedside Glucose 103 210 120 167 Test 03/06/19 11:56 Bedside Glucose 187 Medications Medication Current Medications Ondansetron HCl (Zofran Inj) 4 mg Q6H PRN IV NAUSEA AND/OR VOMITING; Start 02/12/19 at 07:30 Ipratropium [place] (Atrovent Hfa) 2 puff Q2H RESP THERAPY PRN INH SHORTNESS OF BREATH; Start 02/12/19 at 07:30 Acetaminophen (Tylenol Liquid) 650 mg Q6H PRN PO PAIN LEVEL 1-3 OR FEVER Last administered on 02/28/19at 18:27; Admin Dose 650 MG; Start 02/12/19 at 07:30 Aspirin (Aspirin) 81 mg DAILY PO Last administered on 03/06/19at 08:29; Admin Dose 81 MG; Start 02/12/19 at 09:00 Miscellaneous Information 1 ea NOTE XX ; Start 02/12/19 at 09:30 Glucose (Glutose) 15 gm Q15M PRN PO DECREASED GLUCOSE; Start 02/12/19 at 09:30 Glucose (Glutose) 22.5 gm Q15M PRN PO DECREASED GLUCOSE; Start 02/12/19 at 09:30 Dextrose (D50w Syringe) 25 ml Q15M PRN IV DECREASED GLUCOSE Last administered on 02/25/19 16:03; Admin Dose 25 ML; Start 02/12/19 at 09:30 Dextrose (D50w Syringe) 50 ml Q15M PRN IV DECREASED GLUCOSE Last administered on 02/25/19 19:58; Admin Dose 50 ML; Start 02/12/19 at 09:30 Glucagon (Glucagen) 1 mg Q15M PRN IM DECREASED GLUCOSE; Start 02/12/19 at 09:30 Glucose (Glutose) 15 gm Q15M PRN BUCCAL DECREASED GLUCOSE; Start 02/12/19 at 09:30 Sodium Hypochlorite (Dakins Diluted ()) 1 applic DAILY TP Last administered on 03/06/19 08:32; Admin Dose 1 APPLIC; Start 02/15/19 at 09:00 Albuterol/ Ipratropium (Duoneb) 3 ml Q2H RESP THERAPY PRN HHN SHORTNESS OF BREATH Last administered on 02/26/19 12:13; Admin Dose 3 ML; Start 02/19/19 at 19:00 Nystatin (Nystatin Oint) 1 applic BID TOP Last administered on 03/06/19 08:31; Admin Dose 1 APPLIC; Start 02/21/19 at 09:00 Diphenhydramine HCl (Benadryl) 25 mg Q6H PRN PO ITCHING Last administered on 03/05/19 22:19; Admin Dose 25 MG; Start 02/23/19 at 11:00 Collagenase (Santyl) 1 applic BID TOP Last administered on 03/06/19 08:30; Admin Dose 1 APPLIC; Start 02/24/19 at 10:30 Zinc Sulfate (Zinc Sulfate) 220 mg DAILY PO Last administered on 03/06/19 08:29; Admin Dose 220 MG; Start 02/26/19 at 12:00 Multivitamins Therapeutic (Theragran) 1 tab DAILY PO Last administered on 03/06/19 08:29; Admin Dose 1 TAB; Start 02/26/19 at 12:00 Spironolactone (Aldactone) 25 mg DAILY PO Last administered on 03/06/19 09:46; Admin Dose 25 MG; Start 02/26/19 at 17:30 Labetalol HCl (Labetalol) 10 mg Q6 PRN IV ELEVATED BLOOD PRESSURE Last administered on 02/28/19 00:33; Admin Dose 10 MG; Start 02/27/19 at 01:30 Lisinopril (Zestril) 5 mg BID PO Last administered on 03/06/19 08:29; Admin Dose 5 MG; Start 02/27/19 at 21:00 Atorvastatin Calcium (Lipitor) 80 mg QHS PO Last administered on 03/05/19 21:50; Admin Dose 80 MG; Start 02/28/19 at 21:00 Clopidogrel Bisulfate (plaVIX) 75 mg DAILY PO Last administered on 03/06/19 09:46; Admin Dose 75 MG; Start 02/28/19 at 09:00 Insulin Glargine (Lantus) 18 units BID SC Last administered on 03/06/19 09:30; Admin Dose 18 UNITS; Start 02/28/19 at 09:00 Nicotine (Nicoderm 21 Mg/ 24hr) 1 patch DAILY TRANSDERM Last administered on 03/06/19 08:30; Admin Dose 1 PATCH; Start 02/28/19 at 09:00 Hydralazine HCl (Apresoline) 10 mg Q4H PRN IV ELEVATED BLOOD PRESSURE Last administered on 03/04/19 10:15; Admin Dose 10 MG; Start 02/28/19 at 03:30 Loperamide HCl (Imodium Cap) 2 mg QID PRN PO DIARRHEA; Start 02/28/19 at 09:00 Tramadol HCl (Ultram) 50 mg Q6H PRN PO MODERATE PAIN LEVEL 4-6 Last administered on 03/03/19 10:12; Admin Dose 50 MG; Start 02/28/19 at 20:30 Insulin Aspart (Novolog Insulin Pen) NOVOLOG *MODERATE* ALGORITHM WITH MEALS BEDTIME SC Last administered on 03/06/19 12:04; Admin Dose 4 UNIT; Start 02/06 12/24 at 08:00 Diagnostic Test (Pha) (Accu-Chek) 1 ea 02 XX Last administered on 03/06/19 02:00; Admin Dose 1 EA; Start 03/01/19 at 02:00 Famotidine (Pepcid) 20 mg DAILY PO Last administered on 03/06/19 08:29; Admin Dose 20 MG; Start 03/02/19 at 09:00 Valproic Acid (Depakene) 250 mg TID PO Last administered on 03/06/19at 11:58; Admin Dose 250 MG; Start 03/02/19 at 13:00 Furosemide (Lasix) 40 mg BID DIURETICS PO Last administered on 03/06/19at 06:50; Admin Dose 40 MG; Start 03/02/19 at 18:00 Spironolactone (Aldactone) 25 mg DAILY PO ; Start 03/05/19 at 09:00 Carvedilol (Coreg) 12.5 mg BID PO Last administered on 03/06/19at 08:29; Admin Dose 12.5 MG; Start 03/05/19 at 21:00 YOAV DONALDSON MD Mar 06, 2019 16:08
[2019-03-06] MEDS: traMADol 50 MG TAB PO PRN (19:04)
[2019-03-06 20:00] VITALS: BP 139/66; PULSE 79; RESP 18
[2019-03-06] MEDS: ATORVASTATIN 80 MG TAB PO SCH (21:07)
[2019-03-06] MEDS: APIXABAN 5 MG TABLET PO SCH (21:07)
[2019-03-06] MEDS: DIPHENHYDRAMINE 25 MG CAP PO PRN (21:08)
[2019-03-07 00:03] VITALS: BP 126/55; PULSE 78; RESP 18
[2019-03-07] MEDS: ACCU-CHEK XX SCH (02:24)
[2019-03-07 04:00] VITALS: BP 137/58; PULSE 72; RESP 18
[2019-03-07] MEDS: FUROSEMIDE 40 MG TAB PO SCH (06:17)
[2019-03-07 07:16] VITALS: BP 128/56; PULSE 76; RESP 16
[2019-03-07] MEDS: INSULIN ASPART [NOVOLOG] 3 ML PEN SC SCH ×4 (08:15→21:00)
[2019-03-07] MEDS: SPIRONOLACTONE 25 MG TAB PO SCH ×2 (09:00→09:19)
--- NOTE | 2019-03-07 09:01 | CONS ---
Consult Date/Type/Reason Admit Date/Time Feb 12, 2019 at 04:44 Initial Consult Date 02/20/19 Type of Consultation: cv Requesting Provider: PATSY JONES Date/Time of Note DATE: 03/07/19 TIME: 09:00 Subjective Cardiology follow-up progress note Subjective: Case discussed with staff and telemetry was reviewed. Patient has remained in normal sinus rhythm Patient is still confused Patient is longer hypoxemic she states she was sob last night Patient is extubated 02/25/19 There is no report of any chest pain or pressure Objective: General: Obese female no acute distress HEENT: NC/AT. pupils are equal. round. NECK: Unable to assess for JVD. no stridor. CV: RRR. systolic murmur; no gallop or rubs. PULM: no wheezing minimal rhonchi. 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 Right leg wound improving neuro: Awake . oriented x1 at least Psych: calm rectal: deferred : Deferred Echocardiogram was personally reviewed which shows: Normal left ventricular cavity size. Mild concentric left ventricular hypertrophy. Moderate left ventricular systolic dysfunction. Ejection fraction is visually estimated at 35 %. Tissue Doppler/Mitral Doppler indices are consistent with impaired relaxation (Stage I diastolic dysfunction). Multiple segmental wall motion abnormalities. Mitral valve leaflets appear mildly thickened. Mild mitral annular calcification. Trace mitral regurgitation. Normal appearance and function of the tricuspid valve with trace physiologic regurgitation. Normal right ventricular systolic pressure. suboptimal study. Chest x-ray done 02/19/2019 shows: There is mild atelectasis at the lung bases, unchanged. Mild pulmonary edema is unchanged. The heart size is normal. There are small bilateral pleural effusions. There is no pneumothorax. cxr 02/22 reviewed 1. Interval decreased central pulmonary vascular congestion. 2. Stable cardiomegaly with aortic atherosclerosis. 3. Stable position of support devices. CXR 03/01 Cardiomegaly. Blunted bilateral costophrenic angles that may reflect small pleural effusions. Atelectasis versus minimal infiltrates in the perihilar left lower lobe. Scattered atelectasis in the remainder the lungs. Hypoinflated lungs. Objective Vitals Vital Signs Date Temp Pulse Resp B/P (MAP) Pulse Ox O2 O2 Flow FiO2 Time Delivery Rate 03/07/19 98.2 76 16 128/56 92 07:16 (80) 03/07/19 Room Air 04:00 03/06/19 2.0 07:43 Intake and Output 03/06/19 03/06/19 03/07/19 1515:00 23:00 07:00 IntakeIntake Total 720 ml 600 ml OutputOutput Total 300 ml 200 ml BalanceBalance 720 ml 300 ml -200 ml Results/Medications Result Diagram: 03/07/1962003/07/19 0621 Results 24 hrs Laboratory Tests Test 03/06/19 11:56 03/06/19 17:06 03/06/19 20:59 03/07/19 02:22 Bedside Glucose 187 111 271 H 162 Test 03/07/19 06:21 03/07/19 08:09 White Blood Count 7.2 Red Blood Count 4.26 Hemoglobin 12.6 Hematocrit 39.8 Mean Corpuscular 93.4 Volume Mean Corpuscular 29.6 Hemoglobin Mean Corpuscular 31.7 L Hemoglobin Concent Red Cell 13.0 Distribution Width Platelet Count 387 Mean Platelet Volume 10.0 Immature 0.300 Granulocytes % Neutrophils % 63.7 Lymphocytes % 18.7 Monocytes % 10.4 Eosinophils % 5.2 Basophils % 1.7 Nucleated Red Blood 0.0 Cells % Immature 0.020 Granulocytes # Neutrophils # 4.6 Lymphocytes # 1.3 Monocytes # 0.8 Eosinophils # 0.4 Basophils # 0.1 Nucleated Red Blood 0.0 Cells # Sodium Level 142 Potassium Level 4.0 Chloride Level 102 Carbon Dioxide Level 32 H Anion Gap 8 Blood Urea Nitrogen 49 H Creatinine 1.67 H Est Glomerular Filtrat Rate mL/min Glucose Level 179 Calcium Level 9.0 Magnesium Level 2.0 Total Bilirubin 0.4 Direct Bilirubin 0.00 Indirect Bilirubin 0.4 Aspartate Amino 34 Transf (AST/SGOT) Alanine 57 Aminotransferase (AL T/SGPT) Alkaline Phosphatase 113 B-Type Natriuretic 1990 H Peptide Total Protein 6.6 Albumin 3.3 Globulin 3.30 H Albumin/Globulin 1.00 Ratio Bedside Glucose 208 Home Meds Reported Medications Insulin Glargine,Hum.rec.anlog (Basaglar Kwikpen U-100) 100 Unit/1 Ml Insuln.pen, 0-12 UNIT SC QHS for PER SLIDING SCALE, EA 02/12/19 Insulin Aspart* (Novolog Insulin Pen*) 100 Unit/Ml Soln, 0-12 SC .SLIDING SCALE AC, EA 02/12/19 Dulaglutide (Trulicity) 1.5 Mg/0.5 Ml Pen.injctr, 1.5 MG SQ WEEKLY 02/12/19 Aspirin* (Aspirin* Chew) 81 Mg Tab.chew, 81 MG PO DAILY, TAB.CHEW 02/12/19 Clopidogrel Bisulfate (Clopidogrel) 75 Mg Tablet, 1 TAB ORAL DAILY 02/12/19 Tramadol HCl (Tramadol HCl) 50 Mg Tablet, 1 TAB ORAL Q6 PRN for PAIN LEVEL 4-6 02/12/19 Arginine Hcl (Arginine Hcl) 1 Gm Powder, 1 GM MC DAILY 02/12/19 Sacubitril/Valsartan (Entresto 49 mg-51 mg Tablet) 1 Each Tablet, 1 TAB ORAL DAILY 02/12/19 Atorvastatin* (Atorvastatin*) 80 Mg Tablet, 1 TAB ORAL QHS 02/12/19 Carvedilol* (Carvedilol*) 25 Mg Tablet, 1 TAB ORAL BID 02/12/19 Spironolactone* (Aldactone*) 25 Mg Tablet, 12.5 MG PO QAM, #60 TAB 02/12/19 Ampicillin Sodium-Sulbactam Sodium (Unasyn*) 3 Gm Soln, 3 GM IVPB Q6, VIAL 02/12/19 Medications Current Medications Ondansetron HCl (Zofran Inj) 4 mg Q6H PRN IV NAUSEA AND/OR VOMITING; Start 02/12/19 at 07:30 Ipratropium Juda (Atrovent Hfa) 2 puff Q2H RESP THERAPY PRN INH SHORTNESS OF BREATH; Start 02/12/19 at 07:30 Acetaminophen (Tylenol Liquid) 650 mg Q6H PRN PO PAIN LEVEL 1-3 OR FEVER Last administered on 02/28/19at 18:27; Admin Dose 650 MG; Start 02/12/19 at 07:30 Aspirin (Aspirin) 81 mg DAILY PO Last administered on 03/06/19at 08:29; Admin Dose 81 MG; Start 02/12/19 at 09:00 Miscellaneous Information 1 ea NOTE XX ; Start 02/12/19 at 09:30 Glucose (Glutose) 15 gm Q15M PRN PO DECREASED GLUCOSE; Start 02/12/19 at 09:30 Glucose (Glutose) 22.5 gm Q15M PRN PO DECREASED GLUCOSE; Start 02/12/19 at 09:30 Dextrose (D50w Syringe) 25 ml Q15M PRN IV DECREASED GLUCOSE Last administered on 02/25/19 16:03; Admin Dose 25 ML; Start 02/12/19 at 09:30 Dextrose (D50w Syringe) 50 ml Q15M PRN IV DECREASED GLUCOSE Last administered on 02/25/19 19:58; Admin Dose 50 ML; Start 02/12/19 at 09:30 Glucagon (Glucagen) 1 mg Q15M PRN IM DECREASED GLUCOSE; Start 02/12/19 at 09:30 Glucose (Glutose) 15 gm Q15M PRN BUCCAL DECREASED GLUCOSE; Start 02/12/19 at 09:30 Sodium Hypochlorite (Dakins Diluted ()) 1 applic DAILY TP Last administered on 03/06/19 08:32; Admin Dose 1 APPLIC; Start 02/15/19 at 09:00 Albuterol/ Ipratropium (Duoneb) 3 ml Q2H RESP THERAPY PRN HHN SHORTNESS OF BREATH Last administered on 02/26/19 12:13; Admin Dose 3 ML; Start 02/19/19 at 19:00 Nystatin (Nystatin Oint) 1 applic BID TOP Last administered on 03/06/19 21:10; Admin Dose 1 APPLIC; Start 02/21/19 at 09:00 Diphenhydramine HCl (Benadryl) 25 mg Q6H PRN PO ITCHING Last administered on 03/06/19 21:08; Admin Dose 25 MG; Start 02/23/19 at 11:00 Collagenase (Santyl) 1 applic BID TOP Last administered on 03/06/19 21:08; Admin Dose 1 APPLIC; Start 02/24/19 at 10:30 Zinc Sulfate (Zinc Sulfate) 220 mg DAILY PO Last administered on 03/06/19 08:29; Admin Dose 220 MG; Start 02/26/19 at 12:00 Multivitamins Therapeutic (Theragran) 1 tab DAILY PO Last administered on 03/06/19 08:29; Admin Dose 1 TAB; Start 02/26/19 at 12:00 Spironolactone (Aldactone) 25 mg DAILY PO Last administered on 03/06/19 09:46; Admin Dose 25 MG; Start 02/26/19 at 17:30 Labetalol HCl (Labetalol) 10 mg Q6 PRN IV ELEVATED BLOOD PRESSURE Last administered on 02/28/19 00:33; Admin Dose 10 MG; Start 02/27/19 at 01:30 Lisinopril (Zestril) 5 mg BID PO Last administered on 03/06/19 21:12; Admin Dose 5 MG; Start 02/27/19 at 21:00 Atorvastatin Calcium (Lipitor) 80 mg QHS PO Last administered on 03/06/19 21:07; Admin Dose 80 MG; Start 02/28/19 at 21:00 Clopidogrel Bisulfate (plaVIX) 75 mg DAILY PO Last administered on 03/06/19 09:46; Admin Dose 75 MG; Start 02/28/19 at 09:00 Insulin Glargine (Lantus) 18 units BID SC Last administered on 03/06/19 21:49; Admin Dose 18 UNITS; Start 02/28/19 at 09:00 Nicotine (Nicoderm 21 Mg/ 24hr) 1 patch DAILY TRANSDERM Last administered on 03/06/19 08:30; Admin Dose 1 PATCH; Start 02/28/19 at 09:00 Hydralazine HCl (Apresoline) 10 mg Q4H PRN IV ELEVATED BLOOD PRESSURE Last administered on 03/04/19 10:15; Admin Dose 10 MG; Start 02/28/19 at 03:30 Loperamide HCl (Imodium Cap) 2 mg QID PRN PO DIARRHEA; Start 02/28/19 at 09:00 Tramadol HCl (Ultram) 50 mg Q6H PRN PO MODERATE PAIN LEVEL 4-6 Last administered on 03/06/19 19:04; Admin Dose 50 MG; Start 02/28/19 at 20:30 Insulin Aspart (Novolog Insulin Pen) NOVOLOG *MODERATE* ALGORITHM WITH MEALS BE DTIME SC Last administered on 03/07/19 08:15; Admin Dose 4 UNIT; Start 03/01/19 at 08:00 Diagnostic Test (Pha) (Accu-Chek) 1 ea 02 XX Last administered on 03/07/19 02:24; Admin Dose 1 EA; Start 03/01/19 at 02:00 Famotidine (Pepcid) 20 mg DAILY PO Last administered on 03/06/19 08:29; Admin Dose 20 MG; Start 03/02/19 at 09:00 Valproic Acid (Depakene) 250 mg TID PO Last administered on 03/06/19at 21:07; Admin Dose 250 MG; Start 03/02/19 at 13:00 Furosemide (Lasix) 40 mg BID DIURETICS PO Last administered on 03/07/19at 06:17; Admin Dose 40 MG; Start 03/02/19 at 18:00 Spironolactone (Aldactone) 25 mg DAILY PO ; Start 03/05/19 at 09:00 Carvedilol (Coreg) 12.5 mg BID PO Last administered on 03/06/19 21:12; Admin Dose 12.5 MG; Start 03/05/19 at 21:00 Apixaban (Eliquis) 5 mg BID PO Last administered on 03/06/19 21:07; Admin Dose 5 MG; Start 03/06/19 at 21:00 Assessment/Plan Hospital Course (Demo Recall) Acute hypoxemic respiratory failure status post intubation now extubated 02/25/19 Congestive heart failure: Acute on chronic secondary systolic heart failure Sepsis Coronary artery disease with history of ME History of ischemic cardiomyopathy ejection fraction of 35% History of multiple PCI Severe peripheral vascular disease status post left leg amputation as well as right leg severe PAD Hypertension diabetes dyslipidemia Hyponatremia Acute kidney injury; improved now Recommendations: Continue with aspirin and Plavix Continue with LASIX diabetic control as per internal medicine cont coreg 12.5 bid Antibiotic management as per internal medicine ID recommendations DVT prophylaxis GI prophylaxis as per internal medicine cont aldactone cont lisinopril replace electrolyte including potassium magnesium as needed Aspiration precaution Thank you for his referral. We will continue to follow along with you YOGI NICOLAS MD [facility] YOGI NICOLAS MD Mar 07, 2019 09:01
[2019-03-07] MEDS: CLOPIDOGREL 75 MG TAB PO SCH (09:18)
[2019-03-07] MEDS: VALPROIC ACID 250 MG CAP PO SCH ×3 (09:18→20:59)
[2019-03-07] MEDS: APIXABAN 5 MG TABLET PO SCH ×2 (09:18→21:01)
[2019-03-07] MEDS: DIPHENHYDRAMINE 25 MG CAP PO PRN (09:19)
[2019-03-07] MEDS: ASPIRIN 81 MG TAB PO SCH (09:19)
[2019-03-07] MEDS: FAMOTIDINE 20 MG TAB PO SCH (09:19)
[2019-03-07] MEDS: LISINOPRIL 5 MG TAB PO SCH ×2 (09:19→21:01)
[2019-03-07] MEDS: ZINC SULFATE 220 MG CAP PO SCH (09:19)
[2019-03-07] MEDS: MULTIVITAMINS THERAPEUTIC TAB PO SCH (09:19)
[2019-03-07] MEDS: COLLAGENASE 5 GM (UD JAR) TOP SCH ×2 (09:20→20:59)
[2019-03-07] MEDS: NICOTINE (21 MG/24 HR) PATCH TRANSDERM SCH (09:21)
[2019-03-07] MEDS: BALSAM PERU/CASTOR OIL 60 GM TUBE TOP SCH ×2 (09:21→21:02)
[2019-03-07] MEDS: NYSTATIN 15 GM OINT TOP SCH ×2 (09:21→21:02)
[2019-03-07] MEDS: DAKINS 0.0125%(1/40) 473 ML SOLUTION TP SCH (09:22)
[2019-03-07] MEDS: INSULIN GLARGINE [LANTus] (100 UNITS/ML) SYG SC SCH ×2 (09:37→21:24)
[2019-03-07 11:32] VITALS: BP 120/60; PULSE 80; RESP 16
--- NOTE | 2019-03-07 11:52 | CONS ---
Consult Date/Type/Reason Admit Date/Time Feb 12, 2019 at 04:44 Initial Consult Date 02/20/19 Type of Consult Pulmonary Requesting Provider: PATSY JONES Date/Time of Note DATE: 03/07/19 TIME: 11:52 Subjective Patient comfortable no new events still requiring a sitter. Objective Vital Signs Date Temp Pulse Resp B/P (MAP) Pulse Ox O2 O2 Flow FiO2 Time Delivery Rate 03/07/19 97.7 80 16 120/60 92 Room Air 11:32 (80) 03/07/19 2.0 07:55 Intake and Output 03/06/19 03/06/19 03/07/19 1515:00 23:00 07:00 IntakeIntake Total 720 ml 600 ml OutputOutput Total 300 ml 200 ml BalanceBalance 720 ml 300 ml -200 ml Exam GENERAL: Elderly appearing lady comfortable at rest VITAL SIGNS: per chart NECK: Supple. No JVD or lymphadenopathy. CARDIAC EXAM: S1, S2. No added sounds or murmurs. CHEST: clear bilaterally, No added sounds, rales or wheezes ABDOMEN: Soft, nontender. No guarding or rebound. EXTREMITIES: No cyanosis, clubbing or edema. NEUROLOGIC: Generalized weakness. No focal deficits. Vent Setting Ventilator Support Mode: CPAP, PS Fraction of Inspired Oxygen pe: 30 Positive End Expiratory Pressu: 5.0 Results/Medications Result Diagram: 03/07/1962003/07/19620 Results 24 hrs Laboratory Tests Test 03/06/19 11:56 03/06/19 17:06 03/06/19 20:59 03/07/19 02:22 Bedside Glucose 187 111 271 H 162 Test 03/07/19 06:21 03/07/19 08:09 03/07/19 11:27 White Blood Count 7.2 Red Blood Count 4.26 Hemoglobin 12.6 Hematocrit 39.8 Mean Corpuscular 93.4 Volume Mean Corpuscular 29.6 Hemoglobin Mean Corpuscular 31.7 L Hemoglobin Concent Red Cell 13.0 Distribution Width Platelet Count 387 Mean Platelet Volume 10.0 Immature 0.300 Granulocytes % Neutrophils % 63.7 Lymphocytes % 18.7 Monocytes % 10.4 Eosinophils % 5.2 Basophils % 1.7 Nucleated Red Blood 0.0 Cells % Immature 0.020 Granulocytes # Neutrophils # 4.6 Lymphocytes # 1.3 Monocytes # 0.8 Eosinophils # 0.4 Basophils # 0.1 Nucleated Red Blood 0.0 Cells # Sodium Level 142 Potassium Level 4.0 Chloride Level 102 Carbon Dioxide Level 32 H Anion Gap 8 Blood Urea Nitrogen 49 H Creatinine 1.67 H Est Glomerular Filtrat Rate mL/min Glucose Level 179 Calcium Level 9.0 Magnesium Level 2.0 Total Bilirubin 0.4 Direct Bilirubin 0.00 Indirect Bilirubin 0.4 Aspartate Amino 34 Transf (AST/SGOT) Alanine 57 Aminotransferase (AL T/SGPT) Alkaline Phosphatase 113 B-Type Natriuretic 1990 H Peptide Total Protein 6.6 Albumin 3.3 Globulin 3.30 H Albumin/Globulin 1.00 Ratio Bedside Glucose 208 211 Medications Current Medications Ondansetron HCl (Zofran Inj) 4 mg Q6H PRN IV NAUSEA AND/OR VOMITING; Start 02/12/19 at 07:30 Ipratropium Angelica (Atrovent Hfa) 2 puff Q2H RESP THERAPY PRN INH SHORTNESS OF BREATH; Start 02/12/19 at 07:30 Acetaminophen (Tylenol Liquid) 650 mg Q6H PRN PO PAIN LEVEL 1-3 OR FEVER Last administered on 02/28/19at 18:27; Admin Dose 650 MG; Start 02/12/19 at 07:30 Aspirin (Aspirin) 81 mg DAILY PO Last administered on 03/07/19at 09:19; Admin Dose 81 MG; Start 02/12/19 at 09:00 Miscellaneous Information 1 ea NOTE XX ; Start 02/12/19 at 09:30 Glucose (Glutose) 15 gm Q15M PRN PO DECREASED GLUCOSE; Start 02/12/19 at 09:30 Glucose (Glutose) 22.5 gm Q15M PRN PO DECREASED GLUCOSE; Start 02/12/19 at 09:30 Dextrose (D50w Syringe) 25 ml Q15M PRN IV DECREASED GLUCOSE Last administered on 02/25/19at 16:03; Admin Dose 25 ML; Start 02/12/19 at 09:30 Dextrose (D50w Syringe) 50 ml Q15M PRN IV DECREASED GLUCOSE Last administered on 02/25/19at 19:58; Admin Dose 50 ML; Start 02/12/19 at 09:30 Glucagon (Glucagen) 1 mg Q15M PRN IM DECREASED GLUCOSE; Start 02/12/19 at 09:30 Glucose (Glutose) 15 gm Q15M PRN BUCCAL DECREASED GLUCOSE; Start 02/12/19 at 09:30 Sodium Hypochlorite (Dakins Diluted ()) 1 applic DAILY TP Last administered on 03/07/19 09:22; Admin Dose 1 APPLIC; Start 02/15/19 at 09:00 Albuterol/ Ipratropium (Duoneb) 3 ml Q2H RESP THERAPY PRN HHN SHORTNESS OF BREATH Last administered on 02/26/19 12:13; Admin Dose 3 ML; Start 02/19/19 at 19:00 Nystatin (Nystatin Oint) 1 applic BID TOP Last administered on 03/07/19 09:21; Admin Dose 1 APPLIC; Start 02/21/19 at 09:00 Diphenhydramine HCl (Benadryl) 25 mg Q6H PRN PO ITCHING Last administered on 03/07/19 09:19; Admin Dose 25 MG; Start 02/23/19 at 11:00 Collagenase (Santyl) 1 applic BID TOP Last administered on 03/07/19 09:20; Admin Dose 1 APPLIC; Start 02/24/19 at 10:30 Zinc Sulfate (Zinc Sulfate) 220 mg DAILY PO Last administered on 03/07/19 09:19; Admin Dose 220 MG; Start 02/26/19 at 12:00 Multivitamins Therapeutic (Theragran) 1 tab DAILY PO Last administered on 03/07/19 09:19; Admin Dose 1 TAB; Start 02/26/19 at 12:00 Spironolactone (Aldactone) 25 mg DAILY PO Last administered on 03/07/19 09:19; Admin Dose 25 MG; Start 02/26/19 at 17:30 Labetalol HCl (Labetalol) 10 mg Q6 PRN IV ELEVATED BLOOD PRESSURE Last administered on 02/28/19 00:33; Admin Dose 10 MG; Start 02/27/19 at 01:30 Lisinopril (Zestril) 5 mg BID PO Last administered on 03/07/19 09:19; Admin Dose 5 MG; Start 02/27/19 at 21:00 Atorvastatin Calcium (Lipitor) 80 mg QHS PO Last administered on 03/06/19at 21:07; Admin Dose 80 MG; Start 02/28/19 at 21:00 Clopidogrel Bisulfate (plaVIX) 75 mg DAILY PO Last administered on 03/07/19 09:18; Admin Dose 75 MG; Start 02/28/19 at 09:00 Insulin Glargine (Lantus) 18 units BID SC Last administered on 03/07/19 09:37; Admin Dose 18 UNITS; Start 02/28/19 at 09:00 Nicotine (Nicoderm 21 Mg/ 24hr) 1 patch DAILY TRANSDERM Last administered on 03/07/19 09:21; Admin Dose 1 PATCH; Start 02/28/19 at 09:00 Hydralazine HCl (Apresoline) 10 mg Q4H PRN IV ELEVATED BLOOD PRESSURE Last administered on 03/04/19 10:15; Admin Dose 10 MG; Start 02/28/19 at 03:30 Loperamide HCl (Imodium Cap) 2 mg QID PRN PO DIARRHEA; Start 02/28/19 at 09:00 Tramadol HCl (Ultram) 50 mg Q6H PRN PO MODERATE PAIN LEVEL 4-6 Last administered on 03/06/19 19:04; Admin Dose 50 MG; Start 02/28/19 at 20:30 Insulin Aspart (Novolog Insulin Pen) NOVOLOG *MODERATE* ALGORITHM WITH MEALS BE DTIME SC Last administered on 03/07/19 11:31; Admin Dose 4 UNIT; Start 03/01/19 at 08:00 Diagnostic Test (Pha) (Accu-Chek) 1 ea 02 XX Last administered on 03/07/19 02:24; Admin Dose 1 EA; Start 03/01/19 at 02:00 Famotidine (Pepcid) 20 mg DAILY PO Last administered on 03/07/19 09:19; Admin Dose 20 MG; Start 03/02/19 at 09:00 Valproic Acid (Depakene) 250 mg TID PO Last administered on 03/07/19 09:18; Admin Dose 250 MG; Start 03/02/19 at 13:00 Furosemide (Lasix) 40 mg BID DIURETICS PO Last administered on 03/07/19 06:17; Admin Dose 40 MG; Start 03/02/19 at 18:00 Spironolactone (Aldactone) 25 mg DAILY PO ; Start 03/05/19 at 09:00 Carvedilol (Coreg) 12.5 mg BID PO Last administered on 7/31/19at 09:18; Admin Dose 12.5 MG; Start 03/05/19 at 21:00 Apixaban (Eliquis) 5 mg BID PO Last administered on 03/07/19at 09:18; Admin Dose 5 MG; Start 03/06/19 at 21:00 Assessment/Plan Hospital Course (Demo Recall) IMP: 1. s/p Acute hypoxemic respiratory failure 2. Likely acute tracheobronchitis with congestive cardiac failure 3. Peripheral vascular disease 4. History of diabetes mellitus 5. History of coronary artery disease status post coronary intervention 6. Encephalopathy toxic metabolic RECS: 1. Aspiration precautions 2. Increase free H20 3. BDs/CPT 4. Psych recommendations regarding encephalopathy/dementia Consider transfer to [facility]. Consider acute psych facility. KAYLAH OMALLEY MD, [facility] Mar 07, 2019 11:52
--- NOTE | 2019-03-07 15:30 | PN ---
Date/Time of Note Date/Time of Note DATE: 03/07/19 TIME: 15:23 Assessment/Plan VTE Prophylaxis Risk score (from [facility])>0 risk: 13 SCD applied (from [facility]): No SCD contraindicated: other Pharmacological prophylaxis: apixaban Lines/Catheters IV Catheter Type (from [facility]): Mid Line Urinary Cath still in place: No Assessment/Plan Assessment/Plan 1. Congestive heart failure: Acute on chronic, systolic with LVEF 35%, stable on coreg, lisinopril, aldactone and lasix 2. Acute hypoxemic respiratory failure s/p intubation/extubated on 02/25/19 3. Coronary artery disease with history of AL, s/p multiple PCIs, on aspirin, plavix, and lipitor 4. Severe peripheral vascular disease status post left leg amputation as well as right leg severe PAD, failed R sided revascularization in the past; per Vascular Dr Naidu repeat attempt at revascularization would be unwise. 5. Hypertension, controlled 6. Diabetes, on insulin, increase lantus 7. Dyslipidemia, on lipitor 8. Acute kidney injury; Cr is getting higher, decrease lasix 8. Right great toe ulcer, heaing, finished antibiotics 9. History of DVT, LE duplex negative for DVT, resume eliquis 10. 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 11. DVT prophylaxis: eliquis Result Diagram: 03/07/19 0603/07/19 0621 Results 24hrs Laboratory Tests Test 03/06/19 17:06 03/06/19 20:59 03/07/19 02:22 03/07/19 06:21 Bedside Glucose 111 271 H 162 White Blood Count 7.2 Red Blood Count 4.26 Hemoglobin 12.6 Hematocrit 39.8 Mean Corpuscular 93.4 Volume Mean Corpuscular 29.6 Hemoglobin Mean Corpuscular 31.7 L Hemoglobin Concent Red Cell 13.0 Distribution Width Platelet Count 387 Mean Platelet Volume 10.0 Immature 0.300 Granulocytes % Neutrophils % 63.7 Lymphocytes % 18.7 Monocytes % 10.4 Eosinophils % 5.2 Basophils % 1.7 Nucleated Red Blood 0.0 Cells % Immature 0.020 Granulocytes # Neutrophils # 4.6 Lymphocytes # 1.3 Monocytes # 0.8 Eosinophils # 0.4 Basophils # 0.1 Nucleated Red Blood 0.0 Cells # Sodium Level 142 Potassium Level 4.0 Chloride Level 102 Carbon Dioxide Level 32 H Anion Gap 8 Blood Urea Nitrogen 49 H Creatinine 1.67 H Est Glomerular Filtrat Rate mL/min Glucose Level 179 Calcium Level 9.0 Magnesium Level 2.0 Total Bilirubin 0.4 Direct Bilirubin 0.00 Indirect Bilirubin 0.4 Aspartate Amino 34 Transf (AST/SGOT) Alanine 57 Aminotransferase (AL T/SGPT) Alkaline Phosphatase 113 B-Type Natriuretic 1990 H Peptide Total Protein 6.6 Albumin 3.3 Globulin 3.30 H Albumin/Globulin 1.00 Ratio Test 03/07/19 08:09 03/07/19 11:27 Bedside Glucose 208 211 Subjective 24 Hr Interval Summary Free Text/Dictation no shortness of breath, no chest pain, no orthopnea Exam/Review of Systems Exam Vitals Vital Signs Date Temp Pulse Resp B/P (MAP) Pulse Ox O2 O2 Flow FiO2 Time Delivery Rate 03/07/19 97.7 80 16 120/60 92 Room Air 11:32 (80) 03/07/19 2.0 07:55 Intake and Output 03/06/19 03/06/19 03/07/19 1515:00 23:00 07:00 IntakeIntake Total 720 ml 600 ml OutputOutput Total 300 ml 200 ml BalanceBalance 720 ml 300 ml -200 ml Constitutional: alert, oriented, well developed, obese Psych: no complaints, nl mood/affect Head: normocephalic, atraumatic Eyes: nl conjunctiva, EOMI, nl lids ENMT: nl external ears & nose, nl lips & teeth, nl nasal mucosa & septum Neck: supple, non-tender Respiratory: clear to auscultation, normal air movement; No congested cough, No crackles/rales, No diminished breath sounds, No intercostal retraction, No labored breathing, No respirations, No tactile fremitus, No wheezing, No other Cardiovascular: regular rate and rhythm, nl pulses; No bruits, No diastolic murmur, No edema, No gallop, No irregular rhythm, No jugular venous distention (JVD), No murmurs/extra sounds, No rub, No systolic murmur, No S3, No S4, No other Gastrointestinal: soft, nl liver, spleen, non-tender Extremities: other (s/p left AKA) Neurological: G[employer] II-XII intact, nl mental status, nl speech, nl strength Results Results 24hrs Laboratory Tests Test 03/06/19 17:06 03/06/19 20:59 03/07/19 02:22 03/07/19 06:21 Bedside Glucose 111 271 H 162 White Blood Count 7.2 Red Blood Count 4.26 Hemoglobin 12.6 Hematocrit 39.8 Mean Corpuscular 93.4 Volume Mean Corpuscular 29.6 Hemoglobin Mean Corpuscular 31.7 L Hemoglobin Concent Red Cell 13.0 Distribution Width Platelet Count 387 Mean Platelet Volume 10.0 Immature 0.300 Granulocytes % Neutrophils % 63.7 Lymphocytes % 18.7 Monocytes % 10.4 Eosinophils % 5.2 Basophils % 1.7 Nucleated Red Blood 0.0 Cells % Immature 0.020 Granulocytes # Neutrophils # 4.6 Lymphocytes # 1.3 Monocytes # 0.8 Eosinophils # 0.4 Basophils # 0.1 Nucleated Red Blood 0.0 Cells # Sodium Level 142 Potassium Level 4.0 Chloride Level 102 Carbon Dioxide Level 32 H Anion Gap 8 Blood Urea Nitrogen 49 H Creatinine 1.67 H Est Glomerular Filtrat Rate mL/min Glucose Level 179 Calcium Level 9.0 Magnesium Level 2.0 Total Bilirubin 0.4 Direct Bilirubin 0.00 Indirect Bilirubin 0.4 Aspartate Amino 34 Transf (AST/SGOT) Alanine 57 Aminotransferase (AL T/SGPT) Alkaline Phosphatase 113 B-Type Natriuretic 1990 H Peptide Total Protein 6.6 Albumin 3.3 Globulin 3.30 H Albumin/Globulin 1.00 Ratio Test 03/07/19 08:09 03/07/19 11:27 Bedside Glucose 208 211 Medications Medication Current Medications Ondansetron HCl (Zofran Inj) 4 mg Q6H PRN IV NAUSEA AND/OR VOMITING; Start 02/12/19 at 07:30 Ipratropium [place] (Atrovent Hfa) 2 puff Q2H RESP THERAPY PRN INH SHORTNESS OF BREATH; Start 02/12/19 at 07:30 Acetaminophen (Tylenol Liquid) 650 mg Q6H PRN PO PAIN LEVEL 1-3 OR FEVER Last administered on 02/28/19at 18:27; Admin Dose 650 MG; Start 02/12/19 at 07:30 Aspirin (Aspirin) 81 mg DAILY PO Last administered on 03/07/19at 09:19; Admin Dose 81 MG; Start 02/12/19 at 09:00 Miscellaneous Information 1 ea NOTE XX ; Start 02/12/19 at 09:30 Glucose (Glutose) 15 gm Q15M PRN PO DECREASED GLUCOSE; Start 02/12/19 at 09:30 Glucose (Glutose) 22.5 gm Q15M PRN PO DECREASED GLUCOSE; Start 02/12/19 at 09:30 Dextrose (D50w Syringe) 25 ml Q15M PRN IV DECREASED GLUCOSE Last administered on 02/25/19at 16:03; Admin Dose 25 ML; Start 02/12/19 at 09:30 Dextrose (D50w Syringe) 50 ml Q15M PRN IV DECREASED GLUCOSE Last administered on 02/25/19at 19:58; Admin Dose 50 ML; Start 02/12/19 at 09:30 Glucagon (Glucagen) 1 mg Q15M PRN IM DECREASED GLUCOSE; Start 02/12/19 at 09:30 Glucose (Glutose) 15 gm Q15M PRN BUCCAL DECREASED GLUCOSE; Start 02/12/19 at 09:30 Sodium Hypochlorite (Dakins Diluted ()) 1 applic DAILY TP Last administered on 03/07/19 09:22; Admin Dose 1 APPLIC; Start 02/15/19 at 09:00 Albuterol/ Ipratropium (Duoneb) 3 ml Q2H RESP THERAPY PRN HHN SHORTNESS OF BREATH Last administered on 02/26/19at 12:13; Admin Dose 3 ML; Start 02/19/19 at 19:00 Nystatin (Nystatin Oint) 1 applic BID TOP Last administered on 03/07/19 09:21; Admin Dose 1 APPLIC; Start 02/21/19 at 09:00 Diphenhydramine HCl (Benadryl) 25 mg Q6H PRN PO ITCHING Last administered on 03/07/19 09:19; Admin Dose 25 MG; Start 02/23/19 at 11:00 Collagenase (Santyl) 1 applic BID TOP Last administered on 03/07/19 09:20; Admin Dose 1 APPLIC; Start 02/24/19 at 10:30 Zinc Sulfate (Zinc Sulfate) 220 mg DAILY PO Last administered on 03/07/19 09:19; Admin Dose 220 MG; Start 02/26/19 at 12:00 Multivitamins Therapeutic (Theragran) 1 tab DAILY PO Last administered on 03/07 09:19; Admin Dose 1 TAB; Start 02/26/19 at 12:00 Spironolactone (Aldactone) 25 mg DAILY PO Last administered on 03/07/19 09:19; Admin Dose 25 MG; Start 02/26/19 at 17:30 Labetalol HCl (Labetalol) 10 mg Q6 PRN IV ELEVATED BLOOD PRESSURE Last administered on 02/28/19 00:33; Admin Dose 10 MG; Start 02/27/19 at 01:30 Lisinopril (Zestril) 5 mg BID PO Last administered on 03/07/19 09:19; Admin Dose 5 MG; Start 02/27/19 at 21:00 Atorvastatin Calcium (Lipitor) 80 mg QHS PO Last administered on 03/06/19 21:07; Admin Dose 80 MG; Start 02/28/19 at 21:00 Clopidogrel Bisulfate (plaVIX) 75 mg DAILY PO Last administered on 03/07/19 09:18; Admin Dose 75 MG; Start 02/28/19 at 09:00 Insulin Glargine (Lantus) 18 units BID SC Last administered on 03/07/19 09:37; Admin Dose 18 UNITS; Start 02/28/19 at 09:00 Nicotine (Nicoderm 21 Mg/ 24hr) 1 patch DAILY TRANSDERM Last administered on 03/07/19 09:21; Admin Dose 1 PATCH; Start 02/28/19 at 09:00 Hydralazine HCl (Apresoline) 10 mg Q4H PRN IV ELEVATED BLOOD PRESSURE Last administered on 03/04/19 10:15; Admin Dose 10 MG; Start 02/28/19 at 03:30 Loperamide HCl (Imodium Cap) 2 mg QID PRN PO DIARRHEA; Start 02/28/19 at 09:00 Tramadol HCl (Ultram) 50 mg Q6H PRN PO MODERATE PAIN LEVEL 4-6 Last administered on 03/06/19 19:04; Admin Dose 50 MG; Start 02/28/19 at 20:30 Insulin Aspart (Novolog Insulin Pen) NOVOLOG *MODERATE* ALGORITHM WITH MEALS BEDTIME SC Last administered on 03/07/19at 11:31; Admin Dose 4 UNIT; Start 03/01/19 at 08:00 Diagnostic Test (Pha) (Accu-Chek) 1 ea 02 XX Last administered on 03/07/19 02:24; Admin Dose 1 EA; Start 03/01/19 at 02:00 Famotidine (Pepcid) 20 mg DAILY PO Last administered on 03/07/19 09:19; Admin Dose 20 MG; Start 03/02/19 at 09:00 Valproic Acid (Depakene) 250 mg TID PO Last administered on 03/07/19at 13:43; Admin Dose 250 MG; Start 03/02/19 at 13:00 Spironolactone (Aldactone) 25 mg DAILY PO ; Start 03/05/19 at 09:00 Carvedilol (Coreg) 12.5 mg BID PO Last administered on 03/07/19 09:18; Admin Dose 12.5 MG; Start 03/05/19 at 21:00 Apixaban (Eliquis) 5 mg BID PO Last administered on 03/07/19 09:18; Admin Dose 5 MG; Start 03/06/19 at 21:00 Furosemide (Lasix) 40 mg DAILY PO ; Start 03/08/19 at 09:00; Status YOAV HAQUE MD Mar 07, 2019 15:30
[2019-03-07 15:31] VITALS: BP 133/55; PULSE 75; RESP 16
[2019-03-07] MEDS: traMADol 50 MG TAB PO PRN (16:36)
[2019-03-07 19:50] VITALS: BP 130/62; PULSE 80; RESP 18
[2019-03-07] MEDS: ATORVASTATIN 80 MG TAB PO SCH (20:59)
[2019-03-08] VITALS: BP 119/59; PULSE 75; RESP 18
[2019-03-08] MEDS: DIPHENHYDRAMINE 25 MG CAP PO PRN ×2 (01:02→08:54)
[2019-03-08] MEDS: ACCU-CHEK XX SCH (02:00)
[2019-03-08 07:40] VITALS: BP 155/69; PULSE 71; RESP 20
[2019-03-08] MEDS: COLLAGENASE 5 GM (UD JAR) TOP SCH ×2 (08:40→21:43)
[2019-03-08] MEDS: ZINC SULFATE 220 MG CAP PO SCH (08:40)
[2019-03-08] MEDS: SPIRONOLACTONE 25 MG TAB PO SCH ×2 (08:41→08:42)
[2019-03-08] MEDS: CLOPIDOGREL 75 MG TAB PO SCH (08:41)
[2019-03-08] MEDS: NICOTINE (21 MG/24 HR) PATCH TRANSDERM SCH (08:41)
[2019-03-08] MEDS: LISINOPRIL 5 MG TAB PO SCH ×2 (08:43→21:04)
[2019-03-08] MEDS: ASPIRIN 81 MG TAB PO SCH (08:43)
[2019-03-08] MEDS: FAMOTIDINE 20 MG TAB PO SCH (08:43)
[2019-03-08] MEDS: FUROSEMIDE 40 MG TAB PO SCH (08:43)
[2019-03-08] MEDS: APIXABAN 5 MG TABLET PO SCH ×2 (08:43→21:03)
[2019-03-08] MEDS: MULTIVITAMINS THERAPEUTIC TAB PO SCH (08:43)
[2019-03-08] MEDS: INSULIN GLARGINE [LANTus] (100 UNITS/ML) SYG SC SCH ×2 (08:47→21:01)
[2019-03-08] MEDS: INSULIN ASPART [NOVOLOG] 3 ML PEN SC SCH ×4 (08:53→21:00)
[2019-03-08] MEDS: BALSAM PERU/CASTOR OIL 60 GM TUBE TOP SCH ×2 (08:54→21:43)
[2019-03-08] MEDS: NYSTATIN 15 GM OINT TOP SCH ×2 (08:55→21:44)
[2019-03-08] MEDS: DAKINS 0.0125%(1/40) 473 ML SOLUTION TP SCH (08:56)
--- NOTE | 2019-03-08 09:00 | CONS ---
Consult Date/Type/Reason Admit Date/Time Feb 12, 2019 at 04:44 Initial Consult Date 02/20/19 Type of Consultation: cv Requesting Provider: PATSY JONES Date/Time of Note DATE: 03/08/19 TIME: 08:58 Subjective Cardiology follow-up progress note Subjective: Case discussed with staff . pt if off tele now Patient is less confused Patient is not hypoxemic and on O2 prn no sob today Patient is extubated 02/25/19 There is no report of any chest pain or pressure Objective: General: Obese female no acute distress HEENT: NC/AT. pupils are equal. round. NECK: Unable to assess for JVD. no stridor. CV: RRR. systolic murmur; no gallop or rubs. PULM: no wheezing minimal rhonchi. 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 Right leg wound improving neuro: Awake . oriented x2 Psych: calm rectal: deferred : Deferred Echocardiogram was personally reviewed which shows: Normal left ventricular cavity size. Mild concentric left ventricular hypertrophy. Moderate left ventricular systolic dysfunction. Ejection fraction is visually estimated at 35 %. Tissue Doppler/Mitral Doppler indices are consistent with impaired relaxation (Stage I diastolic dysfunction). Multiple segmental wall motion abnormalities. Mitral valve leaflets appear mildly thickened. Mild mitral annular ca lcification. Trace mitral regurgitation. Normal appearance and function of the tricuspid valve with trace physiologic regurgitation. Normal right ventricular systolic pressure. suboptimal study. Chest x-ray done 02/19/2019 shows: There is mild atelectasis at the lung bases, unchanged. Mild pulmonary edema is unchanged. The heart size is normal. There are small bilateral pleural effusions. There is no pneumothorax. cxr 02/22 reviewed 1. Interval decreased central pulmonary vascular congestion. 2. Stable cardiomegaly with aortic atherosclerosis. 3. Stable position of support devices. CXR 03/01 Cardiomegaly. Blunted bilateral costophrenic angles that may reflect small pleural effusions. Atelectasis versus minimal infiltrates in the perihilar left lower lobe. Scattered atelectasis in the remainder the lungs. Hypoinflated lungs. Objective Vitals Vital Signs Date Temp Pulse Resp B/P (MAP) Pulse Ox O2 O2 Flow FiO2 Time Delivery Rate 03/08/19 98.2 71 20 155/69 94 07:40 (97) 03/08/19 Room Air 00:00 03/07/19 2.0 07:55 Intake and Output 03/07/19 03/07/19 03/08/19 1515:00 23:00 07:00 IntakeIntake Total 700 ml 200 ml BalanceBalance 700 ml 200 ml Results/Medications Result Diagram: 03/07/19 0621 03/08/19 0726 Results 24 hrs Laboratory Tests Test 03/07/19 11:27 03/07/19 17:14 03/07/19 21:14 03/08/19 07:26 Bedside Glucose 211 186 166 Sodium Level 139 Potassium Level 4.1 Chloride Level 100 Carbon Dioxide Level 31 Anion Gap 8 Blood Urea Nitrogen 55 H Creatinine 1.69 H Est Glomerular Filtrat Rate mL/min Glucose Level 167 Calcium Level 9.1 Test 03/08/19 08:29 Bedside Glucose 154 Home Meds Reported Medications Insulin Glargine,Hum.rec.anlog (Basaglar Kwikpen U-100) 100 Unit/1 Ml Insuln.pen, 0-12 UNIT SC QHS for PER SLIDING SCALE, EA 02/12/19 Insulin Aspart* (Novolog Insulin Pen*) 100 Unit/Ml Soln, 0-12 SC .SLIDING SCALE AC, EA 02/12/19 Dulaglutide (Trulicity) 1.5 Mg/0.5 Ml Pen.injctr, 1.5 MG SQ WEEKLY 02/12/19 Aspirin* (Aspirin* Chew) 81 Mg Tab.chew, 81 MG PO DAILY, TAB.CHEW 02/12/19 Clopidogrel Bisulfate (Clopidogrel) 75 Mg Tablet, 1 TAB ORAL DAILY 02/12/19 Tramadol HCl (Tramadol HCl) 50 Mg Tablet, 1 TAB ORAL Q6 PRN for PAIN LEVEL 4-6 02/12/19 Arginine Hcl (Arginine Hcl) 1 Gm Powder, 1 GM MC DAILY 02/12/19 Sacubitril/Valsartan (Entresto 49 mg-51 mg Tablet) 1 Each Tablet, 1 TAB ORAL DAILY 02/12/19 Atorvastatin* (Atorvastatin*) 80 Mg Tablet, 1 TAB ORAL QHS 02/12/19 Carvedilol* (Carvedilol*) 25 Mg Tablet, 1 TAB ORAL BID 02/12/19 Spironolactone* (Aldactone*) 25 Mg Tablet, 12.5 MG PO QAM, #60 TAB 02/12/19 Ampicillin Sodium-Sulbactam Sodium (Unasyn*) 3 Gm Soln, 3 GM IVPB Q6, VIAL 02/12/19 Medications Current Medications Ondansetron HCl (Zofran Inj) 4 mg Q6H PRN IV NAUSEA AND/OR VOMITING; Start 02/12/19 at 07:30 Ipratropium [place] (Atrovent Hfa) 2 puff Q2H RESP THERAPY PRN INH SHORTNESS OF BREATH; Start 02/12/19 at 07:30 Acetaminophen (Tylenol Liquid) 650 mg Q6H PRN PO PAIN LEVEL 1-3 OR FEVER Last administered on 02/28/19at 18:27; Admin Dose 650 MG; Start 02/12/19 at 07:30 Aspirin (Aspirin) 81 mg DAILY PO Last administered on 03/08/19at 08:43; Admin Dose 81 MG; Start 02/12/19 at 09:00 Miscellaneous Information 1 ea NOTE XX ; Start 02/12/19 at 09:30 Glucose (Glutose) 15 gm Q15M PRN PO DECREASED GLUCOSE; Start 02/12/19 at 09:30 Glucose (Glutose) 22.5 gm Q15M PRN PO DECREASED GLUCOSE; Start 02/12/19 at 09:30 Dextrose (D50w Syringe) 25 ml Q15M PRN IV DECREASED GLUCOSE Last administered on 02/25/19at 16:03; Admin Dose 25 ML; Start 02/12/19 at 09:30 Dextrose (D50w Syringe) 50 ml Q15M PRN IV DECREASED GLUCOSE Last administered on 02/25/19at 19:58; Admin Dose 50 ML; Start 02/12/19 at 09:30 Glucagon (Glucagen) 1 mg Q15M PRN IM DECREASED GLUCOSE; Start 02/12/19 at 09:30 Glucose (Glutose) 15 gm Q15M PRN BUCCAL DECREASED GLUCOSE; Start 02/12/19 at 09:30 Sodium Hypochlorite (Dakins Diluted ()) 1 applic DAILY TP Last administered on 03/08/19at 08:56; Admin Dose 1 APPLIC; Start 02/15/19 at 09:00 Albuterol/ Ipratropium (Duoneb) 3 ml Q2H RESP THERAPY PRN HHN SHORTNESS OF BREATH Last administered on 02/26/19 12:13; Admin Dose 3 ML; Start 02/19/19 at 19:00 Nystatin (Nystatin Oint) 1 applic BID TOP Last administered on 03/08/19 08:55; Admin Dose 1 APPLIC; Start 02/21/19 at 09:00 Diphenhydramine HCl (Benadryl) 25 mg Q6H PRN PO ITCHING Last administered on 03/08/19 08:54; Admin Dose 25 MG; Start 02/23/19 at 11:00 Collagenase (Santyl) 1 applic BID TOP Last administered on 03/08/19 08:40; Admin Dose 1 APPLIC; Start 02/24/19 at 10:30 Zinc Sulfate (Zinc Sulfate) 220 mg DAILY PO Last administered on 03/08/19 08:40; Admin Dose 220 MG; Start 02/26/19 at 12:00 Multivitamins Therapeutic (Theragran) 1 tab DAILY PO Last administered on 03/08/19 08:43; Admin Dose 1 TAB; Start 02/26/19 at 12:00 Spironolactone (Aldactone) 25 mg DAILY PO Last administered on 03/08/19 08:41; Admin Dose 25 MG; Start 02/26/19 at 17:30 Labetalol HCl (Labetalol) 10 mg Q6 PRN IV ELEVATED BLOOD PRESSURE Last administered on 02/28/19 00:33; Admin Dose 10 MG; Start 02/27/19 at 01:30 Lisinopril (Zestril) 5 mg BID PO Last administered on 03/08/19 08:43; Admin Dose 5 MG; Start 02/27/19 at 21:00 Atorvastatin Calcium (Lipitor) 80 mg QHS PO Last administered on 03/07/19 20:59; Admin Dose 80 MG; Start 02/28/19 at 21:00 Clopidogrel Bisulfate (plaVIX) 75 mg DAILY PO Last administered on 03/08/19 08:41; Admin Dose 75 MG; Start 02/28/19 at 09:00 Nicotine (Nicoderm 21 Mg/ 24hr) 1 patch DAILY TRANSDERM Last administered on 03/08/19 08:41; Admin Dose 1 PATCH; Start 02/28/19 at 09:00 Hydralazine HCl (Apresoline) 10 mg Q4H PRN IV ELEVATED BLOOD PRESSURE Last administered on 03/04/19 10:15; Admin Dose 10 MG; Start 02/28/19 at 03:30 Loperamide HCl (Imodium Cap) 2 mg QID PRN PO DIARRHEA; Start 02/28/19 at 09:00 Tramadol HCl (Ultram) 50 mg Q6H PRN PO MODERATE PAIN LEVEL 4-6 Last administered on 03/07/19 16:36; Admin Dose 50 MG; Start 02/28/19 at 20:30 Insulin Aspart (Novolog Insulin Pen) NOVOLOG *MODERATE* ALGORITHM WITH MEALS BEDTIME SC Last administered on 03/08/19 08:53; Admin Dose 2 UNIT; Start 03/01/19 at 08:00 Diagnostic Test (Pha) (Accu-Chek) 1 ea 02 XX Last administered on 03/07/19 02:24; Admin Dose 1 EA; Start 03/01/19 at 02:00 Famotidine (Pepcid) 20 mg DAILY PO Last administered on 03/08/19 08:43; Admin Dose 20 MG; Start 03/02/19 at 09:00 Valproic Acid (Depakene) 250 mg TID PO Last administered on 03/07/19 20:59; Admin Dose 250 MG; Start 03/02/19 at 13:00 Spironolactone (Aldactone) 25 mg DAILY PO ; Start 03/05/19 at 09:00 Carvedilol (Coreg) 12.5 mg BID PO Last administered on 03/08/19 08:42; Admin Dose 12.5 MG; Start 03/05/19 at 21:00 Apixaban (Eliquis) 5 mg BID PO Last administered on 03/08/19 08:43; Admin Dose 5 MG; Start 03/06/19 at 21:00 Furosemide (Lasix) 40 mg DAILY PO Last administered on 03/08/19 08:43; Admin Dose 40 MG; Start 03/08/19 at 09:00 Insulin Glargine (Lantus) 20 units BID SC Last administered on 03/08/19 08:47; Admin Dose 20 UNITS; Start 03/07/19 at 21:00 Assessment/Plan Hospital Course (Demo Recall) Acute hypoxemic respiratory failure status post intubation now extubated 02/25/19 Congestive heart failure: Acute on chronic secondary systolic heart failure Sepsis Coronary artery disease with history of HI History of ischemic cardiomyopathy ejection fraction of 35% History of multiple PCI Severe peripheral vascular disease status post left leg amputation as well as right leg severe PAD Hypertension diabetes dyslipidemia Hyponatremia Acute kidney injury; improved now Recommendations: Continue with aspirin and Plavix Continue with LASIX daily diabetic control as per internal medicine cont coreg Antibiotic management as per internal medicine ID recommendations DVT prophylaxis GI prophylaxis as per internal medicine cont aldactone cont lisinopril replace electrolyte including potassium magnesium as needed Aspiration precaution Thank you for his referral. We will continue to follow along with you YOGI NICOLAS MD [facility] YOGI NICOLAS MD Mar 08, 2019 09:00
[2019-03-08] MEDS: VALPROIC ACID 250 MG CAP PO SCH ×3 (09:32→21:03)
[2019-03-08 13:44] VITALS: BP 148/65; PULSE 75; RESP 18
--- NOTE | 2019-03-08 13:56 | PN ---
Date/Time of Note Date/Time of Note DATE: 03/08/19 TIME: 13:52 Assessment/Plan VTE Prophylaxis Risk score (from Ns)>0 risk: 10 SCD applied (from [facility] [place] No SCD contraindicated: other Pharmacological prophylaxis: apixaban Lines/Catheters IV Catheter Type (from [place]): Mid Line Urinary Cath still in place: No Assessment/Plan Assessment/Plan 1. Congestive heart failure: Acute on chronic, systolic with LVEF 35%, stable on coreg, lisinopril, aldactone and lasix 2. Acute hypoxemic respiratory failure s/p intubation/extubated on 02/25/19 3. Coronary artery disease with history of AK, s/p multiple PCIs, on aspirin, plavix, and lipitor 4. Severe peripheral vascular disease status post left leg amputation as well as right leg severe PAD, failed R sided revascularization in the past; per Vascular Dr Naidu repeat attempt at revascularization would be unwise. 5. Hypertension, controlled 6. Diabetes, on insulin 7. Dyslipidemia, on lipitor 8. Acute on CKD, follow up with Cr 8. Right great toe ulcer, healing, finished antibiotics for osteomyelitis, ID/podiatry consult for further treatment 9. History of DVT, LE duplex negative for DVT, resume eliquis 10. 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 11. DVT prophylaxis: eliquis 12. Talked to the daughter about discharge plan who does not want the patient to go to SNF but would take patient home when patient is stronger, continue PT, social media manager consult Result Diagram: 03/07/19 0621 03/08/19 0726 Results 24hrs Laboratory Tests Test 03/07/19 17:14 03/07/19 21:14 03/08/19 07:26 03/08/19 08:29 Bedside Glucose 186 166 154 Sodium Level 139 Potassium Level 4.1 Chloride Level 100 Carbon Dioxide Level 31 Anion Gap 8 Blood Urea Nitrogen 55 H Creatinine 1.69 H Est Glomerular Filtrat Rate mL/min Glucose Level 167 Calcium Level 9.1 Test 03/08/19 12:06 Bedside Glucose 265 H Subjective 24 Hr Interval Summary Free Text/Dictation weak no shortness of breath Exam/Review of Systems Exam Vitals Vital Signs Date Temp Pulse Resp B/P (MAP) Pulse Ox O2 O2 Flow FiO2 Time Delivery Rate 03/08/19 98.8 75 18 148/65 95 13:44 (92) 03/08/19 Room Air 00:00 03/07/19 2.0 07:55 Intake and Output 03/07/19 03/07/19 03/08/19 1515:00 23:00 07:00 IntakeIntake Total 700 ml 200 ml BalanceBalance 700 ml 200 ml Constitutional: alert, oriented, well developed, obese Head: normocephalic, atraumatic Eyes: nl conjunctiva, EOMI, nl lids ENMT: nl external ears & nose, nl lips & teeth, nl nasal mucosa & septum Neck: supple, non-tender Respiratory: clear to auscultation, normal air movement; No congested cough, No crackles/rales, No diminished breath sounds, No intercostal retraction, No labored breathing, No respirations, No tactile fremitus, No wheezing, No other Cardiovascular: regular rate and rhythm, nl pulses; No bruits, No diastolic murmur, No edema, No gallop, No irregular rhythm, No jugular venous distention (JVD), No murmurs/extra sounds, No rub, No systolic murmur, No S3, No S4, No other Gastrointestinal: soft, nl liver, spleen, non-tender Musculoskeletal: other (left AKA) Extremities: other (right great toe lesion) Neurological: APPLICATION DBA II-XII intact, nl mental status, nl speech, nl strength Results Results 24hrs Laboratory Tests Test 03/07/19 17:14 03/07/19 21:14 03/08/19 07:26 03/08/19 08:29 Bedside Glucose 186 166 154 Sodium Level 139 Potassium Level 4.1 Chloride Level 100 Carbon Dioxide Level 31 Anion Gap 8 Blood Urea Nitrogen 55 H Creatinine 1.69 H Est Glomerular Filtrat Rate mL/min Glucose Level 167 Calcium Level 9.1 Test 03/08/19 12:06 Bedside Glucose 265 H Medications Medication Current Medications Ondansetron HCl (Zofran Inj) 4 mg Q6H PRN IV NAUSEA AND/OR VOMITING; Start 02/12/19 at 07:30 Ipratropium [place] (Atrovent Hfa) 2 puff Q2H RESP THERAPY PRN INH SHORTNESS OF BREATH; Start 02/12/19 at 07:30 Acetaminophen (Tylenol Liquid) 650 mg Q6H PRN PO PAIN LEVEL 1-3 OR FEVER Last administered on 02/28/19 18:27; Admin Dose 650 MG; Start 02/12/19 at 07:30 Aspirin (Aspirin) 81 mg DAILY PO Last administered on 03/08/19 08:43; Admin Dos e 81 MG; Start 02/12/19 at 09:00 Miscellaneous Information 1 ea NOTE XX ; Start 02/12/19 at 09:30 Glucose (Glutose) 15 gm Q15M PRN PO DECREASED GLUCOSE; Start 02/12/19 at 09:30 Glucose (Glutose) 22.5 gm Q15M PRN PO DECREASED GLUCOSE; Start 02/12/19 at 09:30 Dextrose (D50w Syringe) 25 ml Q15M PRN IV DECREASED GLUCOSE Last administered on 02/25/19 16:03; Admin Dose 25 ML; Start 02/12/19 at 09:30 Dextrose (D50w Syringe) 50 ml Q15M PRN IV DECREASED GLUCOSE Last administered on 02/25/19 19:58; Admin Dose 50 ML; Start 02/12/19 at 09:30 Glucagon (Glucagen) 1 mg Q15M PRN IM DECREASED GLUCOSE; Start 02/12/19 at 09:30 Glucose (Glutose) 15 gm Q15M PRN BUCCAL DECREASED GLUCOSE; Start 02/12/19 at 09:30 Sodium Hypochlorite (Dakins Diluted ()) 1 applic DAILY TP Last administered on 03/08/19 08:56; Admin Dose 1 APPLIC; Start 02/15/19 at 09:00 Albuterol/ Ipratropium (Duoneb) 3 ml Q2H RESP THERAPY PRN HHN SHORTNESS OF BREATH Last administered on 02/26/19 12:13; Admin Dose 3 ML; Start 02/19/19 at 19:00 Nystatin (Nystatin Oint) 1 applic BID TOP Last administered on 03/08/19 08:55; Admin Dose 1 APPLIC; Start 02/21/19 at 09:00 Diphenhydramine HCl (Benadryl) 25 mg Q6H PRN PO ITCHING Last administered on 03/08/19 08:54; Admin Dose 25 MG; Start 02/23/19 at 11:00 Collagenase (Santyl) 1 applic BID TOP Last administered on 03/08/19 08:40; Admin Dose 1 APPLIC; Start 02/24/19 at 10:30 Zinc Sulfate (Zinc Sulfate) 220 mg DAILY PO Last administered on 03/08/19 08:40; Admin Dose 220 MG; Start 02/26/19 at 12:00 Multivitamins Therapeutic (Theragran) 1 tab DAILY PO Last administered on 03/08/19 08:43; Admin Dose 1 TAB; Start 02/26/19 at 12:00 Spironolactone (Aldactone) 25 mg DAILY PO Last administered on 03/08/19 08:41; Admin Dose 25 MG; Start 02/26/19 at 17:30 Labetalol HCl (Labetalol) 10 mg Q6 PRN IV ELEVATED BLOOD PRESSURE Last administered on 02/28/19 00:33; Admin Dose 10 MG; Start 02/27/19 at 01:30 Lisinopril (Zestril) 5 mg BID PO Last administered on 03/08/19 08:43; Admin Dose 5 MG; Start 02/27/19 at 21:00 Atorvastatin Calcium (Lipitor) 80 mg QHS PO Last administered on 03/07/19 20:59; Admin Dose 80 MG; Start 02/28/19 at 21:00 Clopidogrel Bisulfate (plaVIX) 75 mg DAILY PO Last administered on 03/08/19 08:41; Admin Dose 75 MG; Start 02/28/19 at 09:00 Nicotine (Nicoderm 21 Mg/ 24hr) 1 patch DAILY TRANSDERM Last administered on 03/08/19 08:41; Admin Dose 1 PATCH; Start 02/28/19 at 09:00 Hydralazine HCl (Apresoline) 10 mg Q4H PRN IV ELEVATED BLOOD PRESSURE Last administered on 03/04/19 10:15; Admin Dose 10 MG; Start 02/28/19 at 03:30 Loperamide HCl (Imodium Cap) 2 mg QID PRN PO DIARRHEA; Start 02/28/19 at 09:00 Tramadol HCl (Ultram) 50 mg Q6H PRN PO MODERATE PAIN LEVEL 4-6 Last administered on 03/07/19 16:36; Admin Dose 50 MG; Start 02/28/19 at 20:30 Insulin Aspart (Novolog Insulin Pen) NOVOLOG *MODERATE* ALGORITHM WITH MEALS BEDTIME SC Last administered on 03/08/19 12:10; Admin Dose 8 UNIT; Start 03/01/19 at 08:00 Diagnostic Test (Pha) (Accu-Chek) 1 ea 02 XX Last administered on 03/07/19 02:24; Admin Dose 1 EA; Start 03/01/19 at 02:00 Famotidine (Pepcid) 20 mg DAILY PO Last administered on 03/08/19 08:43; Admin Dose 20 MG; Start 03/02/19 at 09:00 Valproic Acid (Depakene) 250 mg TID PO Last administered on 03/08/19 09:32; Admin Dose 250 MG; Start 03/02/19 at 13:00 Spironolactone (Aldactone) 25 mg DAILY PO ; Start 03/05/19 at 09:00 Carvedilol (Coreg) 12.5 mg BID PO Last administered on 03/08/19 08:42; Admin Dose 12.5 MG; Start 03/05/19 at 21:00 Apixaban (Eliquis) 5 mg BID PO Last administered on 03/08/19 08:43; Admin Dose 5 MG; Start 03/06/19 at 21:00 Furosemide (Lasix) 40 mg DAILY PO Last administered on 03/08/19 08:43; Admin Dose 40 MG; Start 03/08/19 at 09:00 Insulin Glargine (Lantus) 20 units BID SC Last administered on 03/08/19 08:47; Admin Dose 20 UNITS; Start 03/07/19 at 21:00 YOAV DONALDSON MD Mar 08, 2019 13:56
[2019-03-08] MEDS: traMADol 50 MG TAB PO PRN (16:19)
[2019-03-08 19:56] VITALS: BP 153/65; PULSE 77; RESP 16
[2019-03-08] MEDS: ATORVASTATIN 80 MG TAB PO SCH (21:03)
[2019-03-09] MEDS: ACCU-CHEK XX SCH (01:59)
[2019-03-09 02:07] VITALS: BP 114/83; PULSE 80; RESP 18
--- NOTE | 2019-03-09 05:33 | CONS ---
DATE OF ADMISSION: 02/12/2019 DATE OF CONSULTATION: 02/12/2019 TYPE OF CONSULTATION: Infectious Disease consultation. REASON FOR CONSULTATION: Antibiotic management. HISTORY OF PRESENT ILLNESS: Melina Mederos is a 73-year-old female who is admitted with shortness of breath. The patient was started on CPAP. She is obtunded, unable to give any history. Her past problems include left leg amputation in 2014 and stents in 2018. She has a history of congestive hea rt failure, hypertension, and history of Staph infections. We are asked to see her; although, she has been in the hospital for a very long time because of an in fection of her right great toe. She has a history of congestive heart failure with systolic for reje ction was ejection fraction of 35%, Lasix. She had acute hypoxemic respiratory failure, status post intubation and then extubated on 02/25/2019. PAST MEDICAL HISTORY INCLUDE: 1. Some coronary artery disease with a history of multiple MIs, status post multiple PCIs on aspirin , Plavix and Lipitor, 2. Severe peripheral vascular disease, status post left leg amputation and severe right leg PAD with failed right-sided revascularization. 3. She has a history of hypertension. 4. Diabetes. 5. Dyslipidemia. 6. Acute on chronic renal disease. 7. She has a right great toe ulcer. She finished the antibiotics for osteomyelitis. ID and Podiatr y has been consulted for further treatment. FAMILY HISTORY: Noncontributory. SOCIAL HISTORY: She does not smoke, drink, or abuse drugs. MEDICATIONS: 1. Coreg. 2. Lisinopril. 3. Aldactone. LABORATORY: Today, her white count 7.2, H and H of 12.6 and 39.8, with a platelet count 387,000. BU N and creatinine 55/1.69, glucose of 167. PHYSICAL EXAMINATION: GENERAL: She is alert, responsive, obese, in no acute distress. VITAL SIGNS: Stable. She is afebrile. SKIN: Without generalized rash. HEENT: Within normal limits. NECK: Supple. LYMPH NODES: None palpable. CHEST: Decreased breath sounds at the bases. HEART: Without murmur or gallop. ABDOMEN: Soft, nontender, without organosplenomegaly or masses. EXTREMITIES: She has a left AKA and she has right a great toe lesion. This currently is dry. She i s currently on no antibiotics and she has completed her course of antibiotics for osteomyelitis. Her wound on 02/14/2019 grew out methicillin-resistant Staphylococcus, K. pneumoniae, enterococcus and C andida parapsilosis. LABORATORY DATA: A white count today is 7.2. BUN and creatinine 55/1.69. HOSPITAL COURSE: At this point, I would await the evaluation by podiatry, but I am not inclined to t reat her toe wound. I think that it could be taken care of with local care. I will dictate my findi ngs to Dr. Valenzuela and to the various consultants. Of note, is the fact that Dr. Castro saw the pat ient 03/02/2019 for right foot early osteomyelitis and right hallux diabetic ulcer. An MRI showed re active osteitis of the first proximal and distal phalanges with focal early osteomyelitis involving t he medial base of the first distal phalanx at the medial head of the 1st proximal phalanx with a woun d culture showing Staph aureus. The patient does not have adequate blood supply to warrant surgical debridement at this time. No plan for surgical intervention. Continue with local care and palliativ e care. The wound does not appear infected. It is dry without erythema. No purulence appreciated. So, we have to make a decision whether it is worth treating for early osteomyelitis. At this point, the patient is stable and the wound is also dry, and we will have to discuss this with Dr. Castro , tomorrow. I will dictate my findings to Dr. Valenzuela, Dr. Dove, and as I mentioned before, and the hospitalist. Dictated By: KATINA ZEPEDA MD, JD/ELIZA Conf#: [id number] DID#: [id number]
[2019-03-09 07:38] VITALS: BP 140/60; PULSE 74; RESP 16
[2019-03-09] MEDS: INSULIN ASPART [NOVOLOG] 3 ML PEN SC SCH ×4 (08:00→20:47)
[2019-03-09] MEDS: CLOPIDOGREL 75 MG TAB PO SCH (08:42)
[2019-03-09] MEDS: VALPROIC ACID 250 MG CAP PO SCH ×3 (08:42→20:49)
[2019-03-09] MEDS: APIXABAN 5 MG TABLET PO SCH ×2 (08:42→20:49)
[2019-03-09] MEDS: ZINC SULFATE 220 MG CAP PO SCH (08:42)
[2019-03-09] MEDS: MULTIVITAMINS THERAPEUTIC TAB PO SCH (08:43)
[2019-03-09] MEDS: SPIRONOLACTONE 25 MG TAB PO SCH ×2 (08:43→08:44)
[2019-03-09] MEDS: FAMOTIDINE 20 MG TAB PO SCH (08:43)
[2019-03-09] MEDS: FUROSEMIDE 40 MG TAB PO SCH (08:43)
[2019-03-09] MEDS: LISINOPRIL 5 MG TAB PO SCH ×2 (08:43→20:50)
[2019-03-09] MEDS: ASPIRIN 81 MG TAB PO SCH (08:43)
[2019-03-09] MEDS: NICOTINE (21 MG/24 HR) PATCH TRANSDERM SCH (08:44)
[2019-03-09] MEDS: DAKINS 0.0125%(1/40) 473 ML SOLUTION TP SCH (08:45)
[2019-03-09] MEDS: BALSAM PERU/CASTOR OIL 60 GM TUBE TOP SCH (08:45)
[2019-03-09] MEDS: COLLAGENASE 5 GM (UD JAR) TOP SCH (08:45)
[2019-03-09] MEDS: NYSTATIN 15 GM OINT TOP SCH (08:46)
[2019-03-09] MEDS: INSULIN GLARGINE [LANTus] (100 UNITS/ML) SYG SC SCH ×2 (08:47→20:48)
--- NOTE | 2019-03-09 09:20 | CONS ---
Consult Date/Type/Reason Admit Date/Time Feb 12, 2019 at 04:44 Initial Consult Date 02/20/19 Type of Consultation: cv Requesting Provider: PATSY JONES Date/Time of Note DATE: 03/09/19 TIME: 09:18 Subjective Cardiology follow-up progress note Subjective: Case discussed with staff . pt if off tele now Patient is not hypoxemic and on O2 prn only no sob today Patient is extubated 02/25/19 she c/o foot pain There is no report of any chest pain or pressure Objective: General: Obese female no acute distress HEENT: NC/AT. pupils are equal. round. NECK: Unable to assess for JVD. no stridor. CV: RRR. systolic murmur; no gallop or rubs. PULM: no wheezing minimal rhonchi. 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 Right leg wound improving neuro: Awake . oriented x2 Psych: calm rectal: deferred : Deferred Echocardiogram was personally reviewed which shows: Normal left ventricular cavity size. Mild concentric left ventricular hypertrophy. Moderate left ventricular systolic dysfunction. Ejection fraction is visually estimated at 35 %. Tissue Doppler/Mitral Doppler indices are consistent with impaired relaxation (Stage I diastolic dysfunction). Multiple segmental wall motion abnormalities. Mitral valve leaflets appear mildly thickened. Mild mitral annular calcific ation. Trace mitral regurgitation. Normal appearance and function of the tricuspid valve with trace physiologic regurgitation. Normal right ventricular systolic pressure. suboptimal study. Chest x-ray done 02/19/2019 shows: There is mild atelectasis at the lung bases, unchanged. Mild pulmonary edema is unchanged. The heart size is normal. There are small bilateral pleural effusions. There is no pneumothorax. cxr 02/22 reviewed 1. Interval decreased central pulmonary vascular congestion. 2. Stable cardiomegaly with aortic atherosclerosis. 3. Stable position of support devices. CXR 03/01 Cardiomegaly. Blunted bilateral costophrenic angles that may reflect small pleural effusions. Atelectasis versus minimal infiltrates in the perihilar left lower lobe. Scattered atelectasis in the remainder the lungs. Hypoinflated lungs. Objective Vitals Vital Signs Date Temp Pulse Resp B/P (MAP) Pulse Ox O2 O2 Flow FiO2 Time Delivery Rate 03/09/19 98.5 74 16 140/60 92 Room Air 07:38 (86) 03/07/19 2.0 07:55 Intake and Output 03/08/19 03/08/19 03/09/19 1515:00 23:00 07:00 IntakeIntake Total 420 ml 240 ml 160 ml OutputOutput Total 650 ml 300 ml 350 ml BalanceBalance -230 ml -60 ml -190 ml Results/Medications Result Diagram: 03/07/19 0621 03/09/19 0537 Results 24 hrs Laboratory Tests Test 03/08/19 12:06 03/08/19 17:24 03/08/19 20:53 03/09/19 05:37 Bedside Glucose 265 H 129 167 Sodium Level 141 Potassium Level 3.8 Chloride Level 102 Carbon Dioxide Level 33 H Anion Gap 6 Blood Urea Nitrogen 51 H Creatinine 1.48 H Est Glomerular Filtrat Rate mL/min Glucose Level 89 # Calcium Level 9.0 Test 03/09/19 07:56 03/09/19 08:20 03/09/19 08:40 Bedside Glucose 79 105 115 Home Meds Reported Medications Insulin Glargine,Hum.rec.anlog (Basaglar Kwikpen U-100) 100 Unit/1 Ml Insuln.pen, 0-12 UNIT SC QHS for PER SLIDING SCALE, EA 02/12/19 Insulin Aspart* (Novolog Insulin Pen*) 100 Unit/Ml Soln, 0-12 SC .SLIDING SCALE AC, EA 02/12/19 Dulaglutide (Trulicity) 1.5 Mg/0.5 Ml Pen.injctr, 1.5 MG SQ WEEKLY 02/12/19 Aspirin* (Aspirin* Chew) 81 Mg Tab.chew, 81 MG PO DAILY, TAB.CHEW 02/12/19 Clopidogrel Bisulfate (Clopidogrel) 75 Mg Tablet, 1 TAB ORAL DAILY 02/12/19 Tramadol HCl (Tramadol HCl) 50 Mg Tablet, 1 TAB ORAL Q6 PRN for PAIN LEVEL 4-6 02/12/19 Arginine Hcl (Arginine Hcl) 1 Gm Powder, 1 GM MC DAILY 02/12/19 Sacubitril/Valsartan (Entresto 49 mg-51 mg Tablet) 1 Each Tablet, 1 TAB ORAL DAILY 02/12/19 Atorvastatin* (Atorvastatin*) 80 Mg Tablet, 1 TAB ORAL QHS 02/12/19 Carvedilol* (Carvedilol*) 25 Mg Tablet, 1 TAB ORAL BID 02/12/19 Spironolactone* (Aldactone*) 25 Mg Tablet, 12.5 MG PO QAM, #60 TAB 02/12/19 Ampicillin Sodium-Sulbactam Sodium (Unasyn*) 3 Gm Soln, 3 GM IVPB Q6, VIAL 02/12/19 Medications Current Medications Ondansetron HCl (Zofran Inj) 4 mg Q6H PRN IV NAUSEA AND/OR VOMITING; Start 02/12/19 at 07:30 Ipratropium [place] (Atrovent Hfa) 2 puff Q2H RESP THERAPY PRN INH SHORTNESS OF BREATH; Start 02/12/19 at 07:30 Acetaminophen (Tylenol Liquid) 650 mg Q6H PRN PO PAIN LEVEL 1-3 OR FEVER Last administered on 02/28/19at 18:27; Admin Dose 650 MG; Start 02/12/19 at 07:30 Aspirin (Aspirin) 81 mg DAILY PO Last administered on 03/09/19at 08:43; Admin Dose 81 MG; Start 02/12/19 at 09:00 Miscellaneous Information 1 ea NOTE XX ; Start 02/12/19 at 09:30 Glucose (Glutose) 15 gm Q15M PRN PO DECREASED GLUCOSE; Start 02/12/19 at 09:30 Glucose (Glutose) 22.5 gm Q15M PRN PO DECREASED GLUCOSE; Start 02/12/19 at 09:30 Dextrose (D50w Syringe) 25 ml Q15M PRN IV DECREASED GLUCOSE Last administered on 02/25/19at 16:03; Admin Dose 25 ML; Start 02/12/19 at 09:30 Dextrose (D50w Syringe) 50 ml Q15M PRN IV DECREASED GLUCOSE Last administered on 02/25/19at 19:58; Admin Dose 50 ML; Start 02/12/19 at 09:30 Glucagon (Glucagen) 1 mg Q15M PRN IM DECREASED GLUCOSE; Start 02/12/19 at 09:30 Glucose (Glutose) 15 gm Q15M PRN BUCCAL DECREASED GLUCOSE; Start 02/12/19 at 09:30 Sodium Hypochlorite (Dakins Diluted ()) 1 applic DAILY TP Last administered on 03/09/19at 08:45; Admin Dose 1 APPLIC; Start 02/15/19 at 09:00 Albuterol/ Ipratropium (Duoneb) 3 ml Q2H RESP THERAPY PRN HHN SHORTNESS OF BREATH Last administered on 02/26/19 12:13; Admin Dose 3 ML; Start 02/19/19 at 19:00 Nystatin (Nystatin Oint) 1 applic BID TOP Last administered on 03/09/19 08:46; Admin Dose 1 APPLIC; Start 02/21/19 at 09:00 Diphenhydramine HCl (Benadryl) 25 mg Q6H PRN PO ITCHING Last administered on 03/08/19 08:54; Admin Dose 25 MG; Start 02/23/19 at 11:00 Collagenase (Santyl) 1 applic BID TOP Last administered on 03/09/19 08:45; Admin Dose 1 APPLIC; Start 02/24/19 at 10:30 Zinc Sulfate (Zinc Sulfate) 220 mg DAILY PO Last administered on 03/09/19 08:42; Admin Dose 220 MG; Start 02/26/19 at 12:00 Multivitamins Therapeutic (Theragran) 1 tab DAILY PO Last administered on 03/09/19 08:43; Admin Dose 1 TAB; Start 02/26/19 at 12:00 Spironolactone (Aldactone) 25 mg DAILY PO Last administered on 03/09/19 08:43; Admin Dose 25 MG; Start 02/26/19 at 17:30 Labetalol HCl (Labetalol) 10 mg Q6 PRN IV ELEVATED BLOOD PRESSURE Last administered on 02/28/19 00:33; Admin Dose 10 MG; Start 02/27/19 at 01:30 Lisinopril (Zestril) 5 mg BID PO Last administered on 03/09/19 08:43; Admin Dose 5 MG; Start 02/27/19 at 21:00 Atorvastatin Calcium (Lipitor) 80 mg QHS PO Last administered on 03/08/19 21:0 3; Admin Dose 80 MG; Start 02/28/19 at 21:00 Clopidogrel Bisulfate (plaVIX) 75 mg DAILY PO Last administered on 03/09/19 08:42; Admin Dose 75 MG; Start 02/28/19 at 09:00 Nicotine (Nicoderm 21 Mg/ 24hr) 1 patch DAILY TRANSDERM Last administered on 03/09/19 08:44; Admin Dose 1 PATCH; Start 02/28/19 at 09:00 Hydralazine HCl (Apresoline) 10 mg Q4H PRN IV ELEVATED BLOOD PRESSURE Last administered on 03/04/19 10:15; Admin Dose 10 MG; Start 02/28/19 at 03:30 Loperamide HCl (Imodium Cap) 2 mg QID PRN PO DIARRHEA; Start 02/28/19 at 09:00 Tramadol HCl (Ultram) 50 mg Q6H PRN PO MODERATE PAIN LEVEL 4-6 Last administered on 03/08/19 16:19; Admin Dose 50 MG; Start 02/28/19 at 20:30 Insulin Aspart (Novolog Insulin Pen) NOVOLOG *MODERATE* ALGORITHM WITH MEALS BEDTIME SC Last administered on 03/08/19 12:10; Admin Dose 8 UNIT; Start 03/01/19 at 08:00 Diagnostic Test (Pha) (Accu-Chek) 1 ea 02 XX Last administered on 03/07/19 02:24; Admin Dose 1 EA; Start 03/01/19 at 02:00 Famotidine (Pepcid) 20 mg DAILY PO Last administered on 03/09/19 08:43; Admin Dose 20 MG; Start 03/02/19 at 09:00 Valproic Acid (Depakene) 250 mg TID PO Last administered on 03/09/19 08:42; Admin Dose 250 MG; Start 03/02/19 at 13:00 Spironolactone (Aldactone) 25 mg DAILY PO ; Start 03/05/19 at 09:00 Carvedilol (Coreg) 12.5 mg BID PO Last administered on 03/09/19 08:43; Admin Dose 12.5 MG; Start 03/05/19 at 21:00 Apixaban (Eliquis) 5 mg BID PO Last administered on 03/09/19 08:42; Admin Dose 5 MG; Start 03/06/19 at 21:00 Furosemide (Lasix) 40 mg DAILY PO Last administered on 03/09/19 08:43; Admin Dose 40 MG; Start 03/08/19 at 09:00 Insulin Glargine (Lantus) 20 units BID SC Last administered on 03/09/19 08:47; Admin Dose 20 UNITS; Start 03/07/19 at 21:00 Assessment/Plan Hospital Course (Demo Recall) Acute hypoxemic respiratory failure status post intubation now extubated 02/25/19 Congestive heart failure: Acute on chronic secondary systolic heart failure Sepsis Coronary artery disease with history of [place] History of ischemic cardiomyopathy ejection fraction of 35% History of multiple PCI Severe peripheral vascular disease status post left leg amputation as well as right leg severe PAD Hypertension diabetes dyslipidemia Hyponatremia Acute kidney injury; improved now Recommendations: Continue with aspirin and Plavix Continue with po lasix and aldactone diabetic control as per internal medicine cont coreg Antibiotic management as per internal medicine ID recommendations DVT prophylaxis GI prophylaxis as per internal medicine cont lisinopril replace electrolyte including potassium magnesium as needed Aspiration precaution Thank you for his referral. We will continue to follow along with you as needed over the weekend . YOGI NICOLAS MD [facility] YOGI NICOLAS MD Mar 09, 2019 09:19
--- NOTE | 2019-03-09 11:23 | PN ---
Date/Time of Note Date/Time of Note DATE: 03/09/19 TIME: 11:14 Assessment/Plan VTE Prophylaxis Risk score (from Ns)>0 risk: 9 SCD applied (from [facility]): No SCD contraindicated: other Pharmacological prophylaxis: apixaban Lines/Catheters IV Catheter Type (from [facility]): Mid Line Urinary Cath still in place: No Assessment/Plan Assessment/Plan 1. Congestive heart failure: Acute on chronic, systolic with LVEF 35%, stable on coreg, lisinopril, aldactone and lasix 2. Acute hypoxemic respiratory failure s/p intubation/extubated on 02/25/19 3. Coronary artery disease with history of VT, s/p multiple PCIs, on aspirin, plavix, and lipitor 4. Severe peripheral vascular disease status post left leg amputation as well as right leg severe PAD, failed R sided revascularization in the past; per Vascular Dr Naidu repeat attempt at revascularization would be unwise. 5. Hypertension, controlled 6. Diabetes, on insulin 7. Dyslipidemia, on lipitor 8. Acute on CKD, follow up with Cr 8. Right great toe ulcer, healing, finished antibiotics for osteomyelitis, ID/podiatry consult for further treatment 9. History of DVT, LE duplex negative for DVT, resume eliquis 10. 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 11. DVT prophylaxis: eliquis 12. Awaiting for in class special education teacher visit to decide antibiotics need. I talked to the daughter, give her updates of condition and plans Result Diagram: 03/07/19 0621 03/09/19 0537 Results 24hrs Laboratory Tests Test 03/08/19 12:06 03/08/19 17:24 03/08/19 20:53 03/09/19 05:37 Bedside Glucose 265 H 129 167 Sodium Level 141 Potassium Level 3.8 Chloride Level 102 Carbon Dioxide Level 33 H Anion Gap 6 Blood Urea Nitrogen 51 H Creatinine 1.48 H Est Glomerular Filtrat Rate mL/min Glucose Level 89 # Calcium Level 9.0 Test 03/09/19 07:56 03/09/19 08:20 03/09/19 08:40 Bedside Glucose 79 105 115 Subjective 24 Hr Interval Summary Free Text/Dictation no distress, no fever Exam/Review of Systems Exam Vitals Vital Signs Date Temp Pulse Resp B/P (MAP) Pulse Ox O2 O2 Flow FiO2 Time Delivery Rate 03/09/19 98.5 74 16 140/60 92 Room Air 07:38 (86) 03/07/19 2.0 07:55 Intake and Output 03/08/19 03/08/19 03/09/19 1515:00 23:00 07:00 IntakeIntake Total 420 ml 240 ml 160 ml OutputOutput Total 650 ml 300 ml 350 ml BalanceBalance -230 ml -60 ml -190 ml Constitutional: alert, oriented, well developed Head: normocephalic, atraumatic Eyes: nl conjunctiva, EOMI, nl lids ENMT: nl external ears & nose, nl lips & teeth, nl nasal mucosa & septum Neck: supple, non-tender Respiratory: clear to auscultation, normal air movement; No congested cough, No crackles/rales, No diminished breath sounds, No intercostal retraction, No labored breathing, No respirations, No tactile fremitus, No wheezing, No other Cardiovascular: regular rate and rhythm, nl pulses; No bruits, No diastolic murmur, No edema, No gallop, No irregular rhythm, No jugular venous distention (JVD), No murmurs/extra sounds, No rub, No systolic m urmur, No S3, No S4, No other Gastrointestinal: soft, nl liver, spleen, non-tender; No ascites, No bowel sounds, No distended, No firm, No hepatomegaly, No mass, No rebound or guarding, No splenomegaly, No surgical scars, No tender, No other Extremities: other (s/p aka) Neurological: FLAVOR TANK TENDER II-XII intact, nl mental status, nl speech, nl strength Results Results 24hrs Laboratory Tests Test 03/08/19 12:06 03/08/19 17:24 03/08/19 20:53 03/09/19 05:37 Bedside Glucose 265 H 129 167 Sodium Level 141 Potassium Level 3.8 Chloride Level 102 Carbon Dioxide Level 33 H Anion Gap 6 Blood Urea Nitrogen 51 H Creatinine 1.48 H Est Glomerular Filtrat Rate mL/min Glucose Level 89 # Calcium Level 9.0 Test 03/09/19 07:56 03/09/19 08:20 03/09/19 08:40 Bedside Glucose 79 105 115 Medications Medication Current Medications Ondansetron HCl (Zofran Inj) 4 mg Q6H PRN IV NAUSEA AND/OR VOMITING; Start 02/12/19 at 07:30 Ipratropium [place] (Atrovent Hfa) 2 puff Q2H RESP THERAPY PRN INH SHORTNESS OF BREATH; Start 02/12/19 at 07:30 Acetaminophen (Tylenol Liquid) 650 mg Q6H PRN PO PAIN LEVEL 1-3 OR FEVER Last administered on 02/28/19 18:27; Admin Dose 650 MG; Start 02/12/19 at 07:30 Aspirin (Aspirin) 81 mg DAILY PO Last administered on 03/09/19at 08:43; Admin Dose 81 MG; Start 02/12/19 at 09:00 Miscellaneous Information 1 ea NOTE XX ; Start 02/12/19 at 09:30 Glucose (Glutose) 15 gm Q15M PRN PO DECREASED GLUCOSE; Start 02/12/19 at 09:30 Glucose (Glutose) 22.5 gm Q15M PRN PO DECREASED GLUCOSE; Start 02/12/19 at 09:30 Dextrose (D50w Syringe) 25 ml Q15M PRN IV DECREASED GLUCOSE Last administered on 02/25/19at 16:03; Admin Dose 25 ML; Start 02/12/19 at 09:30 Dextrose (D50w Syringe) 50 ml Q15M PRN IV DECREASED GLUCOSE Last administered on 02/25/19at 19:58; Admin Dose 50 ML; Start 02/12/19 at 09:30 Glucagon (Glucagen) 1 mg Q15M PRN IM DECREASED GLUCOSE; Start 02/12/19 at 09:30 Glucose (Glutose) 15 gm Q15M PRN BUCCAL DECREASED GLUCOSE; Start 02/12/19 at 09:30 Sodium Hypochlorite (Dakins Diluted (1/40)) 1 applic DAILY TP Last administered on 03/09/19at 08:45; Admin Dose 1 APPLIC; Start 02/15/19 at 09:00 Albuterol/ Ipratropium (Duoneb) 3 ml Q2H RESP THERAPY PRN HHN SHORTNESS OF BREATH Last administered on 02/26/19at 12:13; Admin Dose 3 ML; Start 02/19/19 at 19:00 Nystatin (Nystatin Oint) 1 applic BID TOP Last administered on 03/09/19 08:46; Admin Dose 1 APPLIC; Start 02/21/19 at 09:00 Diphenhydramine HCl (Benadryl) 25 mg Q6H PRN PO ITCHING Last administered on 03/08/19 08:54; Admin Dose 25 MG; Start 02/23/19 at 11:00 Collagenase (Santyl) 1 applic BID TOP Last administered on 03/09/19 08:45; Admin Dose 1 APPLIC; Start 02/24/19 at 10:30 Zinc Sulfate (Zinc Sulfate) 220 mg DAILY PO Last administered on 03/09/19 08:42; Admin Dose 220 MG; Start 02/26/19 at 12:00 Multivitamins Therapeutic (Theragran) 1 tab DAILY PO Last administered on 03/09 08:43; Admin Dose 1 TAB; Start 02/26/19 at 12:00 Spironolactone (Aldactone) 25 mg DAILY PO Last administered on 03/09/19 08:43; Admin Dose 25 MG; Start 02/26/19 at 17:30 Labetalol HCl (Labetalol) 10 mg Q6 PRN IV ELEVATED BLOOD PRESSURE Last administered on 02/28/19 00:33; Admin Dose 10 MG; Start 02/27/19 at 01:30 Lisinopril (Zestril) 5 mg BID PO Last administered on 03/09/19 08:43; Admin Dose 5 MG; Start 02/27/19 at 21:00 Atorvastatin Calcium (Lipitor) 80 mg QHS PO Last administered on 03/08/19 21:03; Admin Dose 80 MG; Start 02/28/19 at 21:00 Clopidogrel Bisulfate (plaVIX) 75 mg DAILY PO Last administered on 03/09/19 08:42; Admin Dose 75 MG; Start 02/28/19 at 09:00 Nicotine (Nicoderm 21 Mg/ 24hr) 1 patch DAILY TRANSDERM Last administered on 03/09/19 08:44; Admin Dose 1 PATCH; Start 02/28/19 at 09:00 Hydralazine HCl (Apresoline) 10 mg Q4H PRN IV ELEVATED BLOOD PRESSURE Last administered on 03/04/19 10:15; Admin Dose 10 MG; Start 02/28/19 at 03:30 Loperamide HCl (Imodium Cap) 2 mg QID PRN PO DIARRHEA; Start 02/28/19 at 09:00 Tramadol HCl (Ultram) 50 mg Q6H PRN PO MODERATE PAIN LEVEL 4-6 Last administered on 03/08/19 16:19; Admin Dose 50 MG; Start 02/28/19 at 20:30 Insulin Aspart (Novolog Insulin Pen) NOVOLOG *MODERATE* ALGORITHM WITH MEALS BEDTIME SC Last administered on 03/08/19 12:10; Admin Dose 8 UNIT; Start 03/01/19 at 08:00 Diagnostic Test (Pha) (Accu-Chek) 1 ea 02 XX Last administered on 03/07/19 02:24; Admin Dose 1 EA; Start 03/01/19 at 02:00 Famotidine (Pepcid) 20 mg DAILY PO Last administered on 03/09/19 08:43; Admin Dose 20 MG; Start 03/02/19 at 09:00 Valproic Acid (Depakene) 250 mg TID PO Last administered on 03/09/19 08:42; Admin Dose 250 MG; Start 03/02/19 at 13:00 Spironolactone (Aldactone) 25 mg DAILY PO ; Start 03/05/19 at 09:00 Carvedilol (Coreg) 12.5 mg BID PO Last administered on 03/09/19 08:43; Admin Dose 12.5 MG; Start 03/05/19 at 21:00 Apixaban (Eliquis) 5 mg BID PO Last administered on 03/09/19 08:42; Admin Dose 5 MG; Start 03/06/19 at 21:00 Furosemide (Lasix) 40 mg DAILY PO Last administered on 03/09/19 08:43; Admin Dose 40 MG; Start 03/08/19 at 09:00 Insulin Glargine (Lantus) 20 units BID SC Last administered on 03/09/19 08:47; Admin Dose 20 UNITS; Start 03/07/19 at 21:00 YOAV DONALDSON MD Mar 09, 2019 11:23
[2019-03-09] MEDS: traMADol 50 MG TAB PO PRN ×2 (12:09→20:49)
[2019-03-09 14:30] VITALS: BP 133/60; PULSE 75; RESP 16
--- NOTE | 2019-03-09 15:44 | CONS ---
Assessment/Plan Assessment/Plan Hospital Course (Demo Recall) No acute changes overnight patient is in no distress looks comfortable sleeping. Vital signs stable, no fevers. Antimicrobials: Patient is off antibiotics Wound cx 02/14 was + for MRSA, Enterococcus, Kleb, [place] Physical examination: This is a chronically ill-appearing elderly woman who is in no distress. Head atraumatic normocephalic neck is supple chest rise symmetrical breath sounds diminished bases heart S1-S2 abdomen soft bowel sounds present extremities with left great toe dry wound Assessment: 1. Left great toe osteomyelitis, patient completed 6 weeks antibiotic regimen 2. Status post urinary tract infection 3. Coronary artery disease with a history of cardiac stents and AL 4. Diabetes 5. Hypertension 6. History of DVT Plan: Patient is stable, the wound does not have drainage now, will start Doxycycline, Levaquin and Diflucan, consider repeat MRI, f/u podiatry rec-s Consultation Date/Type/Reason Admit Date/Time Feb 12, 2019 at 04:44 Initial Consult Date 02/20/19 Type of Consult id Requesting Provider: PATSY JONES Date/Time of Note DATE: 03/09/19 TIME: 15:44 Exam/Review of Systems Exam Vitals Vital Signs Date Temp Pulse Resp B/P (MAP) Pulse Ox O2 O2 Flow FiO2 Time Delivery Rate 03/09/19 98.1 75 16 133/60 93 Room Air 14:30 (84) 03/07/19 2.0 07:55 Intake and Output 03/08/19 03/08/19 03/09/19 1515:00 23:00 07:00 IntakeIntake Total 420 ml 240 ml 160 ml OutputOutput Total 650 ml 300 ml 350 ml BalanceBalance -230 ml -60 ml -190 ml Results Result Diagram: 03/07/19 0621 03/09/19 0537 Results 24hrs Laboratory Tests Test 03/08/19 17:24 03/08/19 20:53 03/09/19 05:37 03/09/19 07:56 Bedside Glucose 129 167 79 Sodium Level 141 Potassium Level 3.8 Chloride Level 102 Carbon Dioxide Level 33 H Anion Gap 6 Blood Urea Nitrogen 51 H Creatinine 1.48 H Est Glomerular Filtrat Rate mL/min Glucose Level 89 # Calcium Level 9.0 Test 03/09/19 08:20 03/09/19 08:40 03/09/19 12:08 Bedside Glucose 105 115 131 Medications Medication Current Medications Ondansetron HCl (Zofran Inj) 4 mg Q6H PRN IV NAUSEA AND/OR VOMITING; Start 02/12/19 at 07:30 Ipratropium [place] (Atrovent Hfa) 2 puff Q2H RESP THERAPY PRN INH SHORTNESS OF BREATH; Start 02/12/19 at 07:30 Acetaminophen (Tylenol Liquid) 650 mg Q6H PRN PO PAIN LEVEL 1-3 OR FEVER Last administered on 02/28/19 18:27; Admin Dose 650 MG; Start 02/12/19 at 07:30 Aspirin (Aspirin) 81 mg DAILY PO Last administered on 03/09/19 08:43; Admin Dose 81 MG; Start 02/12/19 at 09:00 Miscellaneous Information 1 ea NOTE XX ; Start 02/12/19 at 09:30 Glucose (Glutose) 15 gm Q15M PRN PO DECREASED GLUCOSE; Start 02/12/19 at 09:30 Glucose (Glutose) 22.5 gm Q15M PRN PO DECREASED GLUCOSE; Start 02/12/19 at 09:30 Dextrose (D50w Syringe) 25 ml Q15M PRN IV DECREASED GLUCOSE Last administered on 02/25/19at 16:03; Admin Dose 25 ML; Start 02/12/19 at 09:30 Dextrose (D50w Syringe) 50 ml Q15M PRN IV DECREASED GLUCOSE Last administered on 02/25/19at 19:58; Admin Dose 50 ML; Start 02/12/19 at 09:30 Glucagon (Glucagen) 1 mg Q15M PRN IM DECREASED GLUCOSE; Start 02/12/19 at 09:30 Glucose (Glutose) 15 gm Q15M PRN BUCCAL DECREASED GLUCOSE; Start 02/12/19 at 09:30 Sodium Hypochlorite (Dakins Diluted ()) 1 applic DAILY TP Last administered on 03/09/19at 08:45; Admin Dose 1 APPLIC; Start 02/15/19 at 09:00 Albuterol/ Ipratropium (Duoneb) 3 ml Q2H RESP THERAPY PRN HHN SHORTNESS OF BREATH Last administered on 02/26/19at 12:13; Admin Dose 3 ML; Start 02/19/19 at 19:00 Nystatin (Nystatin Oint) 1 applic BID TOP Last administered on 03/09/19 08:46; Admin Dose 1 APPLIC; Start 02/21/19 at 09:00 Diphenhydramine HCl (Benadryl) 25 mg Q6H PRN PO ITCHING Last administered on 03/08/19 08:54; Admin Dose 25 MG; Start 02/23/19 at 11:00 Collagenase (Santyl) 1 applic BID TOP Last administered on 03/09/19 08:45; Admin Dose 1 APPLIC; Start 02/24/19 at 10:30 Zinc Sulfate (Zinc Sulfate) 220 mg DAILY PO Last administered on 03/09/19 08:42; Admin Dose 220 MG; Start 02/26/19 at 12:00 Multivitamins Therapeutic (Theragran) 1 tab DAILY PO Last administered on 03/09/19 08:43; Admin Dose 1 TAB; Start 02/26/19 at 12:00 Spironolactone (Aldactone) 25 mg DAILY PO Last administered on 03/09/19 08:43; Admin Dose 25 MG; Start 02/26/19 at 17:30 Labetalol HCl (Labetalol) 10 mg Q6 PRN IV ELEVATED BLOOD PRESSURE Last administered on 02/28/19 00:33; Admin Dose 10 MG; Start 02/27/19 at 01:30 Lisinopril (Zestril) 5 mg BID PO Last administered on 03/09/19 08:43; Admin Dose 5 MG; Start 02/27/19 at 21:00 Atorvastatin Calcium (Lipitor) 80 mg QHS PO Last administered on 03/08/19 21:03; Admin Dose 80 MG; Start 02/28/19 at 21:00 Clopidogrel Bisulfate (plaVIX) 75 mg DAILY PO Last administered on 03/09/19 08:42; Admin Dose 75 MG; Start 02/28/19 at 09:00 Nicotine (Nicoderm 21 Mg/ 24hr) 1 patch DAILY TRANSDERM Last administered on 03/09/19 08:44; Admin Dose 1 PATCH; Start 02/28/19 at 09:00 Hydralazine HCl (Apresoline) 10 mg Q4H PRN IV ELEVATED BLOOD PRESSURE Last administered on 03/04/19 10:15; Admin Dose 10 MG; Start 02/28/19 at 03:30 Loperamide HCl (Imodium Cap) 2 mg QID PRN PO DIARRHEA; Start 02/28/19 at 09:00 Tramadol HCl (Ultram) 50 mg Q6H PRN PO MODERATE PAIN LEVEL 4-6 Last administered on 03/09/19 12:09; Admin Dose 50 MG; Start 02/28/19 at 20:30 Insulin Aspart (Novolog Insulin Pen) NOVOLOG *MODERATE* ALGORITHM WITH MEALS BEDTIME SC Last administered on 03/08/19 12:10; Admin Dose 8 UNIT; Start 03/01/19 at 08:00 Diagnostic Test (Pha) (Accu-Chek) 1 ea 02 XX Last administered on 03/07/19 02:24; Admin Dose 1 EA; Start 03/01/19 at 02:00 Famotidine (Pepcid) 20 mg DAILY PO Last administered on 03/09/19 08:43; Admin Dose 20 MG; Start 03/02/19 at 09:00 Valproic Acid (Depakene) 250 mg TID PO Last administered on 03/09/19 12:13; Admin Dose 250 MG; Start 03/02/19 at 13:00 Spironolactone (Aldactone) 25 mg DAILY PO ; Start 03/05/19 at 09:00 Carvedilol (Coreg) 12.5 mg BID PO Last administered on 03/09/19 08:43; Admin Dose 12.5 MG; Start 03/05/19 at 21:00 Apixaban (Eliquis) 5 mg BID PO Last administered on 03/09/19 08:42; Admin Dose 5 MG; Start 03/06/19 at 21:00 Furosemide (Lasix) 40 mg DAILY PO Last administered on 03/09/19 08:43; Admin Dose 40 MG; Start 03/08/19 at 09:00 Insulin Glargine (Lantus) 20 units BID SC Last administered on 03/09/19 08:47; Admin Dose 20 UNITS; Start 03/07/19 at 21:00 IVY BRANDT NP Mar 09, 2019 15:44
[2019-03-09] MEDS: DIPHENHYDRAMINE 25 MG CAP PO PRN (17:25)
[2019-03-09] MEDS ORDERED: DIPHENHYDRAMINE 25 MG CAP PO PRN (17:30)
[2019-03-09 20:34] VITALS: BP 143/63; PULSE 75; RESP 18
[2019-03-09] MEDS: ATORVASTATIN 80 MG TAB PO SCH (20:49)
[2019-03-10] MEDS: BALSAM PERU/CASTOR OIL 60 GM TUBE TOP SCH ×3 (00:31→20:50)
[2019-03-10] MEDS: NYSTATIN 15 GM OINT TOP SCH ×3 (00:31→20:51)
[2019-03-10] MEDS: COLLAGENASE 5 GM (UD JAR) TOP SCH ×3 (00:37→20:50)
[2019-03-10] MEDS: ACCU-CHEK XX SCH (02:00)
[2019-03-10 02:41] VITALS: BP 145/66; PULSE 76; RESP 16
[2019-03-10 07:35] VITALS: BP 153/68; PULSE 73; RESP 18
[2019-03-10] MEDS: INSULIN ASPART [NOVOLOG] 3 ML PEN SC SCH ×4 (08:00→20:49)
[2019-03-10] MEDS: FAMOTIDINE 20 MG TAB PO SCH (08:23)
[2019-03-10] MEDS: SPIRONOLACTONE 25 MG TAB PO SCH (08:23)
[2019-03-10] MEDS: ZINC SULFATE 220 MG CAP PO SCH (08:23)
[2019-03-10] MEDS: ASPIRIN 81 MG TAB PO SCH (08:23)
[2019-03-10] MEDS: CLOPIDOGREL 75 MG TAB PO SCH (08:23)
[2019-03-10] MEDS: MULTIVITAMINS THERAPEUTIC TAB PO SCH (08:23)
[2019-03-10] MEDS: VALPROIC ACID 250 MG CAP PO SCH ×3 (08:23→20:46)
[2019-03-10] MEDS: APIXABAN 5 MG TABLET PO SCH ×2 (08:23→20:47)
[2019-03-10] MEDS: FUROSEMIDE 40 MG TAB PO SCH (08:24)
[2019-03-10] MEDS: LISINOPRIL 5 MG TAB PO SCH ×2 (08:24→20:47)
[2019-03-10] MEDS: NICOTINE (21 MG/24 HR) PATCH TRANSDERM SCH (08:25)
[2019-03-10] MEDS: DAKINS 0.0125%(1/40) 473 ML SOLUTION TP SCH (08:25)
[2019-03-10] MEDS ORDERED: FLUCONAZOLE 100 MG TAB PO SCH (09:00)
[2019-03-10] MEDS: INSULIN GLARGINE [LANTus] (100 UNITS/ML) SYG SC SCH ×2 (09:16→20:49)
[2019-03-10] MEDS ORDERED: DOXYCYCLINE 100 MG in SOD CHLORIDE 0.9% 250 ML IVPB SCH (10:00)
[2019-03-10 14:15] VITALS: BP 156/68; PULSE 76; RESP 16
--- NOTE | 2019-03-10 16:50 | PN ---
Date/Time of Note Date/Time of Note DATE: 03/10/19 TIME: 16:48 Assessment/Plan VTE Prophylaxis Risk score (from Ns)>0 risk: 8 SCD applied (from Ns): No SCD contraindicated: other (PAD) Pharmacological prophylaxis: apixaban Lines/Catheters [facility] Mid Line Urinary Cath still in place: No Assessment/Plan Assessment/Plan 73 yo morbidly obese woman history of peripheral vascular disease, diabetes type II, CHF, likely COPD presents with acute respiratory failure due to CHF exacerbation. #Acute respiratory failure- - CTPA negative for PE - Likely CHF exacerbation. Echocardiogram performed 5 days ago, shows ejection fraction 35% - Extubated 02/25 - Now breathing comfortably on room air. - Continue oral lasix - Plan for discharge home. #Peripheral vascular disease - Cont aspirin, plavix, statin #Diabetic/vascular right foot ulcer - Patient also has outpatient vascular followup - Patient has failed R sided revascularization in the past; per Vascular Dr Naidu repeat attempt at revascularization would be unwise. - No debridement planned. Patient finished a course of IV zosyn and vanco. #Diabetes type II, insulin dependent. - A1c= 9.7 - continue sliding scale insulin #CHF -continue low-dose beta-nabeel per cardiology recommendations -Continue PO lasix #History of DVT - LE duplex negative for DVT. - Not currently on anticoagulation - Should be discharge on Eliquis or Xarelto. 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 GI: famotidine DVT: None DC planning: Patient is stable enough to return home Result Diagram: 03/10/19 0622 03/10/19 06 Subjective 24 Hr Interval Summary Free Text/Dictation No acute overnight events. Patient doing well. Not cooperative with exam. Exam/Review of Systems Exam Vitals Vital Signs Date Temp Pulse Resp B/P (MAP) Pulse Ox O2 O2 Flow FiO2 Time Delivery Rate 03/10/19 98.4 76 16 156/68 94 Room Air 14:15 (97) 03/07/19 2.0 07:55 Intake and Output 03/09/19 03/09/19 03/10/19 1515:00 23:00 07:00 IntakeIntake Total 300 ml 200 ml BalanceBalance 300 ml 200 ml Exam Gen: Morbidly obese woman lying in bed, awake and alert. HEENT: Moist mucous membranes, clear oropharynx. Neck: Supple, no lymphadenopathy. Card: Regular rate and rhythm, no murmurs. Pulm: Slightly distant breath sounds bilaterally, no crackles Abd: Soft, nontender, nondistended. Hypoactive bowel sounds. 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 R leg with well healed bypass scar below the knee. Skin: R lower leg erythema has resolved. R foot bandaged Results Results 24hrs Laboratory Tests Test 03/09/19 17:08 03/09/19 20:43 03/10/19 06:22 03/10/19 08:18 Bedside Glucose 130 161 91 White Blood Count 7.5 Red Blood Count 4.23 Hemoglobin 12.3 Hematocrit 39.4 Mean Corpuscular Volume 93.1 Mean Corpuscular 29.1 Hemoglobin Mean Corpuscular 31.2 L Hemoglobin Concent Red Cell Distribution 12.9 Width Platelet Count 355 Mean Platelet Volume 10.3 Immature Granulocytes % 0.400 Neutrophils % 62.7 Lymphocytes % 18.5 Monocytes % 11.9 H Eosinophils % 5.3 Basophils % 1.2 Nucleated Red Blood 0.0 Cells % Immature Granulocytes # 0.030 Neutrophils # 4.7 Lymphocytes # 1.4 Monocytes # 0.9 Eosinophils # 0.4 Basophils # 0.1 Nucleated Red Blood 0.0 Cells # Sodium Level 143 Potassium Level 4.2 Chloride Level 101 Carbon Dioxide Level 33 H Anion Gap 9 Blood Urea Nitrogen 45 H Creatinine 1.37 H Est Glomerular Filtrat Rate mL/min Glucose Level 114 Calcium Level 9.1 Test 03/10/19 09:14 03/10/19 12:16 Bedside Glucose 173 170 Medications Medication Current Medications Ondansetron HCl (Zofran Inj) 4 mg Q6H PRN IV NAUSEA AND/OR VOMITING; Start 02/12/19 at 07:30 Ipratropium [place] (Atrovent Hfa) 2 puff Q2H RESP THERAPY PRN INH SHORTNESS OF BREATH; Start 02/12/19 at 07:30 Acetaminophen (Tylenol Liquid) 650 mg Q6H PRN PO PAIN LEVEL 1-3 OR FEVER Last administered on 02/28/19at 18:27; Admin Dose 650 MG; Start 02/12/19 at 07:30 Aspirin (Aspirin) 81 mg DAILY PO Last administered on 03/10/19at 08:23; Admin Dose 81 MG; Start 02/12/19 at 09:00 Miscellaneous Information 1 ea NOTE XX ; Start 02/12/19 at 09:30 Glucose (Glutose) 15 gm Q15M PRN PO DECREASED GLUCOSE; Start 02/12/19 at 09:30 Glucose (Glutose) 22.5 gm Q15M PRN PO DECREASED GLUCOSE; Start 02/12/19 at 09:30 Dextrose (D50w Syringe) 25 ml Q15M PRN IV DECREASED GLUCOSE Last administered on 02/25/19at 16:03; Admin Dose 25 ML; Start 02/12/19 at 09:30 Dextrose (D50w Syringe) 50 ml Q15M PRN IV DECREASED GLUCOSE Last administered on 02/25/19at 19:58; Admin Dose 50 ML; Start 02/12/19 at 09:30 Glucagon (Glucagen) 1 mg Q15M PRN IM DECREASED GLUCOSE; Start 02/12/19 at 09:30 Glucose (Glutose) 15 gm Q15M PRN BUCCAL DECREASED GLUCOSE; Start 02/12/19 at 09:30 Sodium Hypochlorite (Dakins Diluted (40)) 1 applic DAILY TP Last administered on 03/10/19 08:25; Admin Dose 1 APPLIC; Start 02/15/19 at 09:00 Albuterol/ Ipratropium (Duoneb) 3 ml Q2H RESP THERAPY PRN HHN SHORTNESS OF BREATH Last administered on 02/26/19at 12:13; Admin Dose 3 ML; Start 02/19/19 at 19:00 Nystatin (Nystatin Oint) 1 applic BID TOP Last administered on 03/10/19 08:26; Admin Dose 1 APPLIC; Start 02/21/19 at 09:00 Diphenhydramine HCl (Benadryl) 25 mg Q6H PRN PO ITCHING Last administered on 03/09/19 17:25; Admin Dose 25 MG; Start 02/23/19 at 11:00 Collagenase (Santyl) 1 applic BID TOP Last administered on 03/10/19 08:22; Admin Dose 1 APPLIC; Start 02/24/19 at 10:30 Zinc Sulfate (Zinc Sulfate) 220 mg DAILY PO Last administered on 03/10/19 08:23; Admin Dose 220 MG; Start 02/26/19 at 12:00 Multivitamins Therapeutic (Theragran) 1 tab DAILY PO Last administered on 03/10/19 08:23; Admin Dose 1 TAB; Start 02/26/19 at 12:00 Spironolactone (Aldactone) 25 mg DAILY PO Last administered on 03/10/19 08:23; Admin Dose 25 MG; Start 02/26/19 at 17:30 Labetalol HCl (Labetalol) 10 mg Q6 PRN IV ELEVATED BLOOD PRESSURE Last administered on 02/28/19 00:33; Admin Dose 10 MG; Start 02/27/19 at 01:30 Lisinopril (Zestril) 5 mg BID PO Last administered on 03/10/19 08:24; Admin Dose 5 MG; Start 02/27/19 at 21:00 Atorvastatin Calcium (Lipitor) 80 mg QHS PO Last administered on 03/09/19 20:49; Admin Dose 80 MG; Start 02/28/19 at 21:00 Clopidogrel Bisulfate (plaVIX) 75 mg DAILY PO Last administered on 03/10/19 08:23; Admin Dose 75 MG; Start 02/28/19 at 09:00 Nicotine (Nicoderm 21 Mg/ 24hr) 1 patch DAILY TRANSDERM Last administered on 03/10/19 08:25; Admin Dose 1 PATCH; Start 02/28/19 at 09:00 Hydralazine HCl (Apresoline) 10 mg Q4H PRN IV ELEVATED BLOOD PRESSURE Last administered on 03/04/19 10:15; Admin Dose 10 MG; Start 02/28/19 at 03:30 Loperamide HCl (Imodium Cap) 2 mg QID PRN PO DIARRHEA; Start 02/28/19 at 09:00 Tramadol HCl (Ultram) 50 mg Q6H PRN PO MODERATE PAIN LEVEL 4-6 Last administered on 03/09/19 20:49; Admin Dose 50 MG; Start 02/28/19 at 20:30 Insulin Aspart (Novolog Insulin Pen) NOVOLOG *MODERATE* ALGORITHM WITH MEALS BEDTIME SC Last administered on 03/10/19 12:20; Admin Dose 2 UNIT; Start 03/01/19 at 08:00 Diagnostic Test (Pha) (Accu-Chek) 1 ea 02 XX Last administered on 03/07/19 02:24; Admin Dose 1 EA; Start 03/01/19 at 02:00 Famotidine (Pepcid) 20 mg DAILY PO Last administered on 03/10/19 08:23; Admin Dose 20 MG; Start 03/02/19 at 09:00 Valproic Acid (Depakene) 250 mg TID PO Last administered on 03/10/19 12:28; Admin Dose 250 MG; Start 03/02/19 at 13:00 Carvedilol (Coreg) 12.5 mg BID PO Last administered on 03/10/19 08:24; Admin Dose 12.5 MG; Start 03/05/19 at 21:00 Apixaban (Eliquis) 5 mg BID PO Last administered on 03/10/19 08:23; Admin Dose 5 MG; Start 03/06/19 at 21:00 Furosemide (Lasix) 40 mg DAILY PO Last administered on 03/10/19 08:24; Admin Dose 40 MG; Start 03/08/19 at 09:00 Insulin Glargine (Lantus) 20 units BID SC Last administered on 03/10/19 09:16; Admin Dose 20 UNITS; Start 03/07/19 at 21:00 Doxycycline Hyclate 100 mg/ Sodium Chloride 250 ml @ 250 mls/hr Q12 IVPB Last administered on 03/10/19 10:19; Admin Dose 250 MLS/HR; Start 03/10/19 at 10:00 Levofloxacin (Levaquin) 500 mg DAILY@06 PO ; Start 03/11/19 at 06:00; Stop 03/11/19 at 06:01 Fluconazole (Diflucan) 100 mg DAILY PO Last administered on 03/10/19 09:28; Admin Dose 100 MG; Start 03/10/19 at 09:00 Levofloxacin (Levaquin) 250 mg DAILY@06 PO ; Start 03/12/19 at 06:00 ANTON OZUNA MD Mar 10, 2019 16:50
--- NOTE | 2019-03-10 17:09 | CONS ---
Assessment/Plan Assessment/Plan Hospital Course (Demo Recall) ID PROGRESS NOTE CURRENT ABX: DAY # => Doxycycline + Levaquin 24H INTERVAL SUMMARY * Resting comfortably, low grade tmax 99.0, VSS, NAD * DC PLANNING IN PROCESS ==> Case d/w Dr. 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 #Acute respiratory failure- - CTPA negative for PE - Likely CHF exacerbation. Echocardiogram performed 5 days ago, shows ejection fraction 35% - Extubated 02/25 - Now breathing comfortably on room air. - Continue oral lasix - Plan for discharge home. #Peripheral vascular disease - Cont aspirin, plavix, statin #Diabetic/vascular right foot ulcer - Patient also has outpatient vascular followup - Patient has failed R sided revascularization in the past; per Vascular Dr Naidu repeat attempt at revascularization would be unwise. - No debridement planned. # Left great toe osteomyelitis, patient completed 6 weeks antibiotic regimen #Diabetes type II, insulin dependent. - A1c= 9.7 - continue sliding scale insulin #CHF -continue low-dose beta-nabeel per cardiology recommendations -Continue PO lasix #History of DVT - LE duplex negative for DVT. - Not currently on anticoagulation - Should be discharge on Eliquis or Xarelto. 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 (-) MRSA Nares ABX ALLERGIES: None to ABX INVASIVES: CURRENT ABX: DAY # =>Doxycycline + Levaquin ID RECOMMENDATIONS/PLAN: 1. DC ABX -- may DC home OFF ABX 2. Patient has received 6 weeks IV ABX for concern left great toe osteomyelitis * Chronic vascular ulcer with severe PAD -- no need for ABX, they will not likely penetrate into tissue * No plans for re-vascularization as too high risk * Case d/w Dr. Swanson whose input is much appreciated. . Consultation Date/Type/Reason Admit Date/Time Feb 12, 2019 at 04:44 Initial Consult Date 02/20/19 Requesting Provider: PATSY JONES Date/Time of Note DATE: 03/10/19 TIME: 17:09 Exam/Review of Systems Exam Vitals Vital Signs Date Temp Pulse Resp B/P (MAP) Pulse Ox O2 O2 Flow FiO2 Time Delivery Rate 03/10/19 98.4 76 16 156/68 94 Room Air 14:15 (97) 03/07/19 2.0 07:55 Intake and Output 03/09/19 03/09/19 03/10/19 1515:00 23:00 07:00 IntakeIntake Total 300 ml 200 ml BalanceBalance 300 ml 200 ml Results Result Diagram: 03/10/19 0622 03/10/19 0622 Results 24hrs Laboratory Tests Test 03/09/19 20:43 03/10/19 06:22 03/10/19 08:18 03/10/19 09:14 Bedside Glucose 161 91 173 White Blood Count 7.5 Red Blood Count 4.23 Hemoglobin 12.3 Hematocrit 39.4 Mean Corpuscular Volume 93.1 Mean Corpuscular 29.1 Hemoglobin Mean Corpuscular 31.2 L Hemoglobin Concent Red Cell Distribution 12.9 Width Platelet Count 355 Mean Platelet Volume 10.3 Immature Granulocytes % 0.400 Neutrophils % 62.7 Lymphocytes % 18.5 Monocytes % 11.9 H Eosinophils % 5.3 Basophils % 1.2 Nucleated Red Blood 0.0 Cells % Immature Granulocytes # 0.030 Neutrophils # 4.7 Lymphocytes # 1.4 Monocytes # 0.9 Eosinophils # 0.4 Basophils # 0.1 Nucleated Red Blood 0.0 Cells # Sodium Level 143 Potassium Level 4.2 Chloride Level 101 Carbon Dioxide Level 33 H Anion Gap 9 Blood Urea Nitrogen 45 H Creatinine 1.37 H Est Glomerular Filtrat Rate mL/min Glucose Level 114 Calcium Level 9.1 Test 03/10/19 12:16 Bedside Glucose 170 Medications Medication Current Medications Ondansetron HCl (Zofran Inj) 4 mg Q6H PRN IV NAUSEA AND/OR VOMITING; Start 02/12/19 at 07:30 Ipratropium Shell (Atrovent Hfa) 2 puff Q2H RESP THERAPY PRN INH SHORTNESS OF BREATH; Start 02/12/19 at 07:30 Acetaminophen (Tylenol Liquid) 650 mg Q6H PRN PO PAIN LEVEL 1-3 OR FEVER Last administered on 02/28/19 18:27; Admin Dose 650 MG; Start 02/12/19 at 07:30 Aspirin (Aspirin) 81 mg DAILY PO Last administered on 03/10/19 08:23; Admin Dose 81 MG; Start 02/12/19 at 09:00 Miscellaneous Information 1 ea NOTE XX ; Start 02/12/19 at 09:30 Glucose (Glutose) 15 gm Q15M PRN PO DECREASED GLUCOSE; Start 02/12/19 at 09:30 Glucose (Glutose) 22.5 gm Q15M PRN PO DECREASED GLUCOSE; Start 02/12/19 at 09:30 Dextrose (D50w Syringe) 25 ml Q15M PRN IV DECREASED GLUCOSE Last administered on 02/25/19 16:03; Admin Dose 25 ML; Start 02/12/19 at 09:30 Dextrose (D50w Syringe) 50 ml Q15M PRN IV DECREASED GLUCOSE Last administered on 02/25/19 19:58; Admin Dose 50 ML; Start 02/12/19 at 09:30 Glucagon (Glucagen) 1 mg Q15M PRN IM DECREASED GLUCOSE; Start 02/12/19 at 09:30 Glucose (Glutose) 15 gm Q15M PRN BUCCAL DECREASED GLUCOSE; Start 02/12/19 at 09:30 Sodium Hypochlorite (Dakins Diluted (40)) 1 applic DAILY TP Last administered on 03/10/19 08:25; Admin Dose 1 APPLIC; Start 02/15/19 at 09:00 Albuterol/ Ipratropium (Duoneb) 3 ml Q2H RESP THERAPY PRN HHN SHORTNESS OF BREATH Last administered on 02/26/19at 12:13; Admin Dose 3 ML; Start 02/19/19 at 19:00 Nystatin (Nystatin Oint) 1 applic BID TOP Last administered on 03/10/19 08:26; Admin Dose 1 APPLIC; Start 02/21/19 at 09:00 Diphenhydramine HCl (Benadryl) 25 mg Q6H PRN PO ITCHING Last administered on 03/09/19 17:25; Admin Dose 25 MG; Start 02/23/19 at 11:00 Collagenase (Santyl) 1 applic BID TOP Last administered on 03/10/19 08:22; Admin Dose 1 APPLIC; Start 02/24/19 at 10:30 Zinc Sulfate (Zinc Sulfate) 220 mg DAILY PO Last administered on 03/10/19 08:23; Admin Dose 220 MG; Start 02/26/19 at 12:00 Multivitamins Therapeutic (Theragran) 1 tab DAILY PO Last administered on 03/10/19 08:23; Admin Dose 1 TAB; Start 02/26/19 at 12:00 Spironolactone (Aldactone) 25 mg DAILY PO Last administered on 03/10/19 08:23; Admin Dose 25 MG; Start 02/26/19 at 17:30 Labetalol HCl (Labetalol) 10 mg Q6 PRN IV ELEVATED BLOOD PRESSURE Last administered on 02/28/19 00:33; Admin Dose 10 MG; Start 02/27/19 at 01:30 Lisinopril (Zestril) 5 mg BID PO Last administered on 03/10/19 08:24; Admin Dose 5 MG; Start 02/27/19 at 21:00 Atorvastatin Calcium (Lipitor) 80 mg QHS PO Last administered on 03/09/19 20:49; Admin Dose 80 MG; Start 02/28/19 at 21:00 Clopidogrel Bisulfate (plaVIX) 75 mg DAILY PO Last administered on 03/10/19 08:23; Admin Dose 75 MG; Start 02/28/19 at 09:00 Nicotine (Nicoderm 21 Mg/ 24hr) 1 patch DAILY TRANSDERM Last administered on 03/10/19 08:25; Admin Dose 1 PATCH; Start 02/28/19 at 09:00 Hydralazine HCl (Apresoline) 10 mg Q4H PRN IV ELEVATED BLOOD PRESSURE Last administered on 03/04/19 10:15; Admin Dose 10 MG; Start 02/28/19 at 03:30 Loperamide HCl (Imodium Cap) 2 mg QID PRN PO DIARRHEA; Start 02/28/19 at 09:00 Tramadol HCl (Ultram) 50 mg Q6H PRN PO MODERATE PAIN LEVEL 4-6 Last administered on 03/09/19 20:49; Admin Dose 50 MG; Start 02/28/19 at 20:30 Insulin Aspart (Novolog Insulin Pen) NOVOLOG *MODERATE* ALGORITHM WITH MEALS BEDTIME SC Last administered on 03/10/19 12:20; Admin Dose 2 UNIT; Start 03/01/19 at 08:00 Diagnostic Test (Pha) (Accu-Chek) 1 ea 02 XX Last administered on 03/07/19 02:24; Admin Dose 1 EA; Start 03/01/19 at 02:00 Famotidine (Pepcid) 20 mg DAILY PO Last administered on 03/10/19 08:23; Admin Dose 20 MG; Start 03/02/19 at 09:00 Valproic Acid (Depakene) 250 mg TID PO Last administered on 03/10/19 12:28; Admin Dose 250 MG; Start 03/02/19 at 13:00 Carvedilol (Coreg) 12.5 mg BID PO Last administered on 03/10/19 08:24; Admin Dose 12.5 MG; Start 03/05/19 at 21:00 Apixaban (Eliquis) 5 mg BID PO Last administered on 03/10/19 08:23; Admin Dose 5 MG; Start 03/06/19 at 21:00 Furosemide (Lasix) 40 mg DAILY PO Last administered on 03/10/19 08:24; Admin Dose 40 MG; Start 03/08/19 at 09:00 Insulin Glargine (Lantus) 20 units BID SC Last administered on 03/10/19 09:16; Admin Dose 20 UNITS; Start 03/07/19 at 21:00 Doxycycline Hyclate 100 mg/ Sodium Chloride 250 ml @ 250 mls/hr Q12 IVPB Last administered on 03/10/19 10:19; Admin Dose 250 MLS/HR; Start 03/10/19 at 10:00 Levofloxacin (Levaquin) 500 mg DAILY@06 PO ; Start 03/11/19 at 06:00; Stop 03/11/19 at 06:01 Fluconazole (Diflucan) 100 mg DAILY PO Last administered on 03/10/19 09:28; Adm in Dose 100 MG; Start 03/10/19 at 09:00 Levofloxacin (Levaquin) 250 mg DAILY@06 PO ; Start 03/12/19 at 06:00 GENNARO MARQUEZ NP Mar 10, 2019 17:09
[2019-03-10] MEDS ORDERED: DOXYCYCLINE 100 MG TAB ONE (19:58)
[2019-03-10 20:27] VITALS: BP 152/67; PULSE 80; RESP 16
[2019-03-10] MEDS: ATORVASTATIN 80 MG TAB PO SCH (20:46)
[2019-03-11] MEDS: ACCU-CHEK XX SCH (02:00)
[2019-03-11 02:34] VITALS: BP 156/72; PULSE 75; RESP 16
[2019-03-11] MEDS ORDERED: LEVOFLOXACIN 500 MG TAB PO SCH (06:00)
[2019-03-11 08:03] VITALS: BP 142/63; PULSE 73; RESP 16
[2019-03-11] MEDS: INSULIN ASPART [NOVOLOG] 3 ML PEN SC SCH ×2 (08:05→11:30)
[2019-03-11] MEDS: INSULIN GLARGINE [LANTus] (100 UNITS/ML) SYG SC SCH (08:06)
[2019-03-11] MEDS: ZINC SULFATE 220 MG CAP PO SCH (08:08)
[2019-03-11] MEDS: CLOPIDOGREL 75 MG TAB PO SCH (08:08)
[2019-03-11] MEDS: ASPIRIN 81 MG TAB PO SCH (08:08)
[2019-03-11] MEDS: VALPROIC ACID 250 MG CAP PO SCH ×2 (08:08→12:09)
[2019-03-11] MEDS: traMADol 50 MG TAB PO PRN (08:09)
[2019-03-11] MEDS: APIXABAN 5 MG TABLET PO SCH (08:09)
[2019-03-11] MEDS: FAMOTIDINE 20 MG TAB PO SCH (08:09)
[2019-03-11] MEDS: FUROSEMIDE 40 MG TAB PO SCH (08:09)
[2019-03-11] MEDS: COLLAGENASE 5 GM (UD JAR) TOP SCH (08:09)
[2019-03-11] MEDS: SPIRONOLACTONE 25 MG TAB PO SCH (08:09)
[2019-03-11] MEDS: LISINOPRIL 5 MG TAB PO SCH (08:09)
[2019-03-11] MEDS: NICOTINE (21 MG/24 HR) PATCH TRANSDERM SCH (08:10)
[2019-03-11] MEDS: MULTIVITAMINS THERAPEUTIC TAB PO SCH (08:10)
[2019-03-11] MEDS: NYSTATIN 15 GM OINT TOP SCH (08:18)
[2019-03-11] MEDS: DAKINS 0.0125%(1/40) 473 ML SOLUTION TP SCH (08:19)
[2019-03-11] MEDS ORDERED: BALSAM PERU/CASTOR OIL 60 GM TUBE TOP SCH (09:00)
[2019-03-11] MEDS: DIPHENHYDRAMINE 25 MG CAP PO PRN (11:04)
--- NOTE | 2019-03-11 14:04 | PDOCDIS ---
Discharge Instructions DIAGNOSIS Discharge Diagnosis CHF exacerbation CONDITION [id number] Patient Condition: [id number] Good HOME CARE INSTRUCTIONS: [id number] Diet Instructions: [id number] Reduced Sodium [id number] Special Diet: [id number] Consistent carbohydrate diet ACTIVITY: Woxir4Cl Activity Restrictions: [id number] No Restrictions FOLLOW UP/APPOINTMENTS Follow-up Plan 1. Continue all medications as prescribed. 2. See your primary care doctor in 1-2 weeks. ANTON OZUNA MD Mar 11, 2019 14:04
[2019-03-11 14:35] VITALS: BP 138/65; PULSE 70; RESP 16
--- NOTE | 2019-03-11 16:59 | CONS ---
Assessment/Plan Assessment/Plan Hospital Course (Demo Recall) ID PROGRESS NOTE CURRENT ABX: DAY # =>OFF ABX S/P Doxycycline + Levaquin 24H INTERVAL SUMMARY * CLINICALLY STABLE VASCULOPATH == NO FEVERS OFF ABX, VSS, NAD * DC PLANNING IN PROCESS ==> Case d/w Dr. 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 #Acute respiratory failure- - CTPA negative for PE - Likely CHF exacerbation. Echocardiogram performed 5 days ago, shows ejec tion fraction 35% - Extubated 02/25 - Now breathing comfortably on room air. - Continue oral lasix - Plan for discharge home. #Peripheral vascular disease - Cont aspirin, plavix, statin #Diabetic/vascular right foot ulcer - Patient also has outpatient vascular followup - Patient has failed R sided revascularization in the past; per Vascular Dr Naidu repeat attempt at revascularization would be unwise. - No debridement planned. # Left great toe osteomyelitis, patient completed 6 weeks antibiotic regimen #Diabetes type II, insulin dependent. - A1c= 9.7 - continue sliding scale insulin #CHF -continue low-dose beta-nabeel per cardiology recommendations -Continue PO lasix #History of DVT - LE duplex negative for DVT. - Not currently on anticoagulation - Should be discharge on Eliquis or Xarelto. 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 (-) MRSA Nares ABX ALLERGIES: None to ABX INVASIVES: CURRENT ABX: DAY # =>OFF ABX S/P Doxycycline + Levaquin ID RECOMMENDATIONS/PLAN: 1. DC ABX -- may DC home OFF ABX 2. Patient has received 6 weeks IV ABX for concern left great toe osteomyelitis * Chronic vascular ulcer with severe PAD -- no need for ABX, they will not likely penetrate into tissue * No plans for re-vascularization as too high risk * Case d/w Dr. Swanson whose input is much appreciated. . Consultation Date/Type/Reason Admit Date/Time Feb 12, 2019 at 04:44 Initial Consult Date 02/20/19 Requesting Provider: PATSY JONES Date/Time of Note DATE: 03/11/19 TIME: 16:58 Exam/Review of Systems Exam Vitals Vital Signs Date Temp Pulse Resp B/P (MAP) Pulse Ox O2 O2 Flow FiO2 Time Delivery Rate 03/11/19 98.0 70 16 138/65 95 14:35 (89) 03/10/19 Room Air 14:15 03/07/19 2.0 07:55 Intake and Output 03/10/19 03/10/19 03/11/19 1515:00 23:00 07:00 IntakeIntake Total 970 ml 400 ml BalanceBalance 970 ml 400 ml Results Result Diagram: 03/10/19 0603/10/19 0622 Results 24hrs Laboratory Tests Test 03/10/19 17:13 03/10/19 20:45 03/11/19 02:27 03/11/19 07:45 Bedside Glucose 297 H 231 H 160 143 Test 03/11/19 11:26 Bedside Glucose 169 Medications Medication Current Medications Ondansetron HCl (Zofran Inj) 4 mg Q6H PRN IV NAUSEA AND/OR VOMITING; Start 02/12/19 at 07:30 Ipratropium Hungry Horse (Atrovent Hfa) 2 puff Q2H RESP THERAPY PRN INH SHORTNESS OF BREATH; Start 02/12/19 at 07:30 Acetaminophen (Tylenol Liquid) 650 mg Q6H PRN PO PAIN LEVEL 1-3 OR FEVER Last administered on 02/28/19at 18:27; Admin Dose 650 MG; Start 02/12/19 at 07:30 Aspirin (Aspirin) 81 mg DAILY PO Last administered on 03/11/19at 08:08; Admin Dose 81 MG; Start 02/12/19 at 09:00 Miscellaneous Information 1 ea NOTE XX ; Start 02/12/19 at 09:30 Glucose (Glutose) 15 gm Q15M PRN PO DECREASED GLUCOSE; Start 02/12/19 at 09:30 Glucose (Glutose) 22.5 gm Q15M PRN PO DECREASED GLUCOSE; Start 02/12/19 at 09:30 Dextrose (D50w Syringe) 25 ml Q15M PRN IV DECREASED GLUCOSE Last administered on 02/25/19at 16:03; Admin Dose 25 ML; Start 02/12/19 at 09:30 Dextrose (D50w Syringe) 50 ml Q15M PRN IV DECREASED GLUCOSE Last administered on 02/25/19 19:58; Admin Dose 50 ML; Start 02/12/19 at 09:30 Glucagon (Glucagen) 1 mg Q15M PRN IM DECREASED GLUCOSE; Start 02/12/19 at 09:30 Glucose (Glutose) 15 gm Q15M PRN BUCCAL DECREASED GLUCOSE; Start 02/12/19 at 09:30 Sodium Hypochlorite (Dakins Diluted ()) 1 applic DAILY TP Last administered on 03/11/19 08:19; Admin Dose 1 APPLIC; Start 02/15/19 at 09:00 Albuterol/ Ipratropium (Duoneb) 3 ml Q2H RESP THERAPY PRN HHN SHORTNESS OF BREATH Last administered on 02/26/19 12:13; Admin Dose 3 ML; Start 02/19/19 at 19:00 Nystatin (Nystatin Oint) 1 applic BID TOP Last administered on 03/11/19 08:18; Admin Dose 1 APPLIC; Start 02/21/19 at 09:00 Diphenhydramine HCl (Benadryl) 25 mg Q6H PRN PO ITCHING Last administered on 03/09/19 17:25; Admin Dose 25 MG; Start 02/23/19 at 11:00 Collagenase (Santyl) 1 applic BID TOP Last administered on 03/11/19 08:09; Admin Dose 1 APPLIC; Start 02/24/19 at 10:30 Zinc Sulfate (Zinc Sulfate) 220 mg DAILY PO Last administered on 03/11/19 08:08; Admin Dose 220 MG; Start 02/26/19 at 12:00 Multivitamins Therapeutic (Theragran) 1 tab DAILY PO Last administered on 03/11/19 08:10; Admin Dose 1 TAB; Start 02/26/19 at 12:00 Spironolactone (Aldactone) 25 mg DAILY PO Last administered on 03/11/19 08:09; Admin Dose 25 MG; Start 02/26/19 at 17:30 Labetalol HCl (Labetalol) 10 mg Q6 PRN IV ELEVATED BLOOD PRESSURE Last administ ered on 02/28/19at 00:33; Admin Dose 10 MG; Start 02/27/19 at 01:30 Lisinopril (Zestril) 5 mg BID PO Last administered on 03/11/19 08:09; Admin Dose 5 MG; Start 02/27/19 at 21:00 Atorvastatin Calcium (Lipitor) 80 mg QHS PO Last administered on 03/10/19 20:46; Admin Dose 80 MG; Start 02/28/19 at 21:00 Clopidogrel Bisulfate (plaVIX) 75 mg DAILY PO Last administered on 03/11/19 08:08; Admin Dose 75 MG; Start 02/28/19 at 09:00 Nicotine (Nicoderm 21 Mg/ 24hr) 1 patch DAILY TRANSDERM Last administered on 03/11/19 08:10; Admin Dose 1 PATCH; Start 02/28/19 at 09:00 Hydralazine HCl (Apresoline) 10 mg Q4H PRN IV ELEVATED BLOOD PRESSURE Last administered on 03/04/19 10:15; Admin Dose 10 MG; Start 02/28/19 at 03:30 Loperamide HCl (Imodium Cap) 2 mg QID PRN PO DIARRHEA; Start 02/28/19 at 09:00 Tramadol HCl (Ultram) 50 mg Q6H PRN PO MODERATE PAIN LEVEL 4-6 Last administered on 03/11/19 08:09; Admin Dose 50 MG; Start 02/28/19 at 20:30 Insulin Aspart (Novolog Insulin Pen) NOVOLOG *MODERATE* ALGORITHM WITH MEALS BEDTIME SC Last administered on 03/11/19 11:30; Admin Dose 2 UNIT; Start 03/01/19 at 08:00 Diagnostic Test (Pha) (Accu-Chek) 1 ea 02 XX Last administered on 03/07/19 02:24; Admin Dose 1 EA; Start 03/01/19 at 02:00 Famotidine (Pepcid) 20 mg DAILY PO Last administered on 03/11/19 08:09; Admin Dose 20 MG; Start 03/02/19 at 09:00 Valproic Acid (Depakene) 250 mg TID PO Last administered on 03/11/19 12:09; Admin Dose 250 MG; Start 03/02/19 at 13:00 Carvedilol (Coreg) 12.5 mg BID PO Last administered on 03/11/19 08:08; Admin Dose 12.5 MG; Start 03/05/19 at 21:00 Apixaban (Eliquis) 5 mg BID PO Last administered on 03/11/19 08:09; Admin Dose 5 MG; Start 03/06/19 at 21:00 Furosemide (Lasix) 40 mg DAILY PO Last administered on 03/11/19at 08:09; Admin Dose 40 MG; Start 03/08/19 at 09:00 Insulin Glargine (Lantus) 20 units BID SC Last administered on 03/11/19 08:06; Admin Dose 20 UNITS; Start 03/07/19 at 21:00 GENNARO MARQUEZ NP Mar 11, 2019 16:59
--- NOTE | 2019-03-11 17:01 | DS ---
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 Patient is currently intubated and as such information is gathered from chart review and from the ER physician. When presented to ER, ABG 100% FiO2 shows a pH of 7.28, PCO2 49, PO2 264, bicarb 23. Because of the level of respiratory distress, decision was made to intubate the patient. Chest x-ray results is not uploaded, however I was at the bedside when x-ray was done and according to my read, it appears pulmonary edema Hospital Course The patient was admitted to the intensive care unit intubated, quickly was weaned off pressors. Her daughter and also granddaughter came to bedside frequently. The patient was aggressively diuresed, and her pulmonary edema responded well. She was extubated 02/18 but unfortunately was re-intubated the following evening for worsening respiratory failure. Finally she was extubated again on 02/25. She was eventually weaned back to room air and is now breathing comfortably on her current diuretic regimen. She was also noted to have a vascular ulcer on her (only) great toe. This ulcer had no evidence of infection but for some reason a skin swab of it was done, that showed polymicrobial growth. She got a 2 week course of IV antibiotics which were completed in the hospital. Her leg was evaluated by Dr. Naidu who determined that revascularization is not an option at this point, since she has failed a previous attempt. At time of discharge the patient has no evidence of infection. She will go home with her family and home health. Home Meds Active Scripts Cadexomer Iodine (Iodosorb) 40 Gm Gel..gm., 40 GM TP DAILY, #30 EA 1 Refill Prov:ANTON OZUNA MD 03/11/19 Nicotine* (Nicotine* Patch) 21 mg/day Patch, 1 PATCH TRANSDERM DAILY, #30 EA 1 Refill Prov:ANTON OZUNA MD 03/11/19 Reported Medications Insulin Glargine,Hum.rec.anlog (Basaglar Kwikpen U-100) 100 Unit/1 Ml Insuln.pen, 0-12 UNIT SC QHS for PER SLIDING SCALE, EA 02/12/19 Insulin Aspart* (Novolog Insulin Pen*) 100 Unit/Ml Soln, 0-12 SC .SLIDING SCALE AC, EA 02/12/19 Dulaglutide (Trulicity) 1.5 Mg/0.5 Ml Pen.injctr, 1.5 MG SQ WEEKLY 02/12/19 Aspirin* (Aspirin* Chew) 81 Mg Tab.chew, 81 MG PO DAILY, TAB.CHEW 02/12/19 Clopidogrel Bisulfate (Clopidogrel) 75 Mg Tablet, 1 TAB ORAL DAILY 02/12/19 Tramadol HCl (Tramadol HCl) 50 Mg Tablet, 1 TAB ORAL Q6 PRN for PAIN LEVEL 4-6 02/12/19 Arginine Hcl (Arginine Hcl) 1 Gm Powder, 1 GM MC DAILY 02/12/19 Sacubitril/Valsartan (Entresto 49 mg-51 mg Tablet) 1 Each Tablet, 1 TAB ORAL DAILY 02/12/19 Atorvastatin* (Atorvastatin*) 80 Mg Tablet, 1 TAB ORAL QHS 02/12/19 Carvedilol* (Carvedilol*) 25 Mg Tablet, 1 TAB ORAL BID 02/12/19 Spironolactone* (Aldactone*) 25 Mg Tablet, 12.5 MG PO QAM, #60 TAB 02/12/19 Discontinued Reported Medications Ampicillin Sodium-Sulbactam Sodium (Unasyn*) 3 Gm Soln, 3 GM IVPB Q6, VIAL 02/12/19 Follow-up Plan 1. Continue all medications as prescribed. 2. See your primary care doctor in 1-2 weeks. Primary Care Provider Not On Staff Doctor Time spent on discharge: > 30 minutes Pending Labs Laboratory Tests Test 03/10/19 17:13 03/10/19 20:45 03/11/19 02:27 03/11/19 07:45 Bedside 297 231 160 143 Glucose mg/dL (70-220) mg/dL (70-220) mg/dL (70-220) mg/dL (70-220) Test 03/11/19 11:26 Bedside 169 Glucose mg/dL (70-220) ANTON OZUNA MD Mar 11, 2019 17:01
[2019-03-12] MEDS ORDERED: LEVOFLOXACIN 250 MG TAB PO SCH (06:00)
== END 2019-03-11 16:10 | disposition home health service (06) | DRG 291 ==
LOC: E/R 04:00 → ICU 04:44 → SUATTDRO 08:27 → CANRESERV 14:07 → 6WM 02-28 23:06 → PP2 03-07 23:45
PROVIDERS: ADMIT Internal Medicine; ATTEND Internal Medicine
PROC: 5A1955Z Respiratory Ventilation, Greater than 96 Consecutive Hours (ICD-10-PCS; principal; 2019-02-12)
PROC: 0BH17EZ Insertion of Endotracheal Airway into Trachea, Via Natural or Artificial Opening (ICD-10-PCS; 2019-02-12)
PROC: 0BH17EZ Insertion of Endotracheal Airway into Trachea, Via Natural or Artificial Opening (ICD-10-PCS; 2019-02-19)
DX: I11.0 Hypertensive heart disease with heart failure (principal); A41.9 Sepsis, unspecified organism; J96.01 Acute respiratory failure with hypoxia; G92 Toxic encephalopathy; R65.20 Severe sepsis without septic shock; N17.9 Acute kidney failure, unspecified; E87.0 Hyperosmolality and hypernatremia; J44.0 Chronic obstructive pulmonary disease with (acute) lower respiratory infection; I50.23 Acute on chronic systolic (congestive) heart failure; E11.65 Type 2 diabetes mellitus with hyperglycemia; E11.621 Type 2 diabetes mellitus with foot ulcer; L97.519 Non-pressure chronic ulcer of other part of right foot with unspecified severity; E11.51 Type 2 diabetes mellitus with diabetic peripheral angiopathy without gangrene; E66.01 Morbid (severe) obesity due to excess calories; E78.5 Hyperlipidemia, unspecified; F17.200 Nicotine dependence, unspecified, uncomplicated; F39 Unspecified mood [affective] disorder; I73.9 Peripheral vascular disease, unspecified; I25.10 Atherosclerotic heart disease of native coronary artery without angina pectoris; I25.5 Ischemic cardiomyopathy; I25.2 Old myocardial infarction; J20.9 Acute bronchitis, unspecified; Z68.36 Body mass index [BMI] 36.0-36.9, adult; Z89.622 Acquired absence of left hip joint; Z86.2 Personal history of diseases of the blood and blood-forming organs and certain disorders involving the immune mechanism; Z86.718 Personal history of other venous thrombosis and embolism; Z95.5 Presence of coronary angioplasty implant and graft; Z79.02 Long term (current) use of antithrombotics/antiplatelets; Z79.82 Long term (current) use of aspirin; Z79.4 Long term (current) use of insulin
CPT/HCPCS: 31500; 36415; 36600; 71045; 71275; 73630; 73718; 80048; 80053; 80061; 80202; 81001; 82550; 82553; 82803; 82962; 83036; 83690; 83735; 83880; 84100; 84132; 84145; 84484; 85025; 85610; 85730; 87070; 87075; 87081; 87086; 92526; 92610; 93005; 93306; 93926; 93971; 94002; 94003; 94640; 94660; 94664; 94770; 96374; 96375; 97110; 97162; 97530; J0295; J0360; J1200; J1630; J1815; J1940; J2060; J2250; J2270; J2543; J3010; J3370; J3475; J3480; J3490; J7040; J7050; J7070; J7512; Q9967